=== PATIENT | female | born 1970 | race Caucasian/White ===

== ENCOUNTER 2017-02-16 15:18 | Emergency (ER) | payer MEDICARE, OTHER ==
[2017-02-16] MEDS ORDERED: RX INFO: IV CONTRAST WAS GIVEN 1 EACH MISC MISCELLANE PRN (16:08)
[2017-02-16] MEDS ORDERED: SODIUM CHLORIDE 0.9% 1,000 ML IV ONE (16:09)
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
[2017-02-16 17:05] LABS: Basophils # (A) 0.1 k/uL (0-0.2); Basophils % (A) 1 %; CH 28.4; CHCM 33.4; Eosinophils # (A) 0.2 k/uL (0-0.7); Eosinophils % (A) 2 %; HCT 44.7 % (34.0-46.0); HDW 2.47; HGB 14.9 gm/dL (11.4-16.0); Luc % (Auto) 2; Lymphocytes # (A) 2.4 k/uL (1.0-4.8); Lymphocytes % (A) 21 %; MCH 28.4 pg (25.0-35.0); MCHC 33.4 g/dL (31.0-37.0); MCV 85.2 fL (80.0-100.0); Mean Platelet Volume 7.2; Monocytes # (A) 0.5 k/uL (0-1.0); Monocytes % (A) 5 %; Neutrophils # (A) 8.2 k/uL (1.3-7.7); Neutrophils % (A) 71 %; RBC 5.24 m/uL (3.80-5.40); RDW 14.1 % (11.5-15.5); WBC 11.6 k/uL (3.8-10.6); WBC (Perox) 11.39
[2017-02-16 17:06] LABS: Appearance,Urine Cloudy (Clear); Bacteria,Urine Rare /hpf; Bilirubin,Urine Negative (Negative); Glucose,Urine (UA) Negative (Negative); Ketones,Urine Negative (Negative); Leukocyte Esterase,Urine Large (Negative); Nitrite,Urine Negative (Negative); Particle Count 9694; Protein,Urine Negative (Negative); RBC,Urine 11 /hpf (0-5); Squamous Epithelial Cell,Urine 18 /hpf (0-4); UA Billing (MACRO vs. MICRO) MICRO; Urobilinogen,Urine <2.0 mg/dL (<2.0); WBC,Urine 33 /hpf (0-5)
[2017-02-16 17:16] LABS: ALT 33 U/L (9-52); AST 17 U/L (14-36); Alkaline Phosphatase 56 U/L (38-126); Anion Gap 11 mmol/L; Blood Urea Nitrogen 14 mg/dL (7-17); Calcium 9.6 mg/dL (8.4-10.2); Carbon Dioxide 25 mmol/L (22-30); Chloride 103 mmol/L (98-107); Glucose 96 mg/dL (74-99); Non-African American GFR(MDRD) >60 (>60 ml/min/1.73 sqM); Potassium 4.5 mmol/L (3.5-5.1); Sodium 139 mmol/L (137-145); Total Bilirubin 0.3 mg/dL (0.2-1.3); Total Protein 6.7 g/dL (6.3-8.2)
--- NOTE | 2017-02-16 17:49 | US ---
EXAMINATION TYPE: US venous doppler duplex LE BI DATE OF EXAM: 02/16/2017 5:28 PM COMPARISON: US CLINICAL HISTORY: Pain. Right leg pain x 2 weeks, history previous DVT SIDE PERFORMED: Bilateral TECHNIQUE: The lower extremity deep venous system is examined utilizing real time linear array sonog chase with graded compression, doppler sonography and color-flow sonography. VESSELS IMAGED: External Iliac Vein (EIV) Common Femoral Vein Deep Femoral Vein Greater Saphenous Vein * Femoral Vein Popliteal Vein Small Saphenous Vein * Proximal Calf Veins (* superficial vessels) Right Leg: Appears negative for DVT Left Leg: Appears negative for DVT IMPRESSION: Normal exam. No evidence of deep venous thrombosis in both legs.
[2017-02-16] MEDS ORDERED: MORPHINE SULFATE 4 MG/ML SYRINGE IVP STA (18:08)
--- NOTE | 2017-02-16 18:36 | CT ---
EXAMINATION TYPE: CT angio chest DATE OF EXAM: 02/16/2017 6:26 PM COMPARISON: 05/15/2012 HISTORY: Leg swelling and pain with shortness of breath CT DLP: 561.2 mGycm Automated exposure control for dose reduction was used. CONTRAST: CTA scan of the thorax is performed with IV Contrast, patient injected with 100 mL of Omnipaque 350, pulmonary embolism protocol. There are 3-D post processed images.. FINDINGS: There are minimal reticular nodular densities at the lung bases. There is no sign of a pulmonary mass . Thoracic aorta shows no sign of dissection. Ascending aorta measures 3.6 cm. There is no evidence o f aneurysm. I see no filling defects in the pulmonary arteries. There is no pericardial effusion. The re is no pleural effusion. There are bilateral bronchial lymph nodes that measure up to 1.5 cm. The b gian thorax is intact. IMPRESSION: NO EVIDENCE OF PULMONARY EMBOLISM. MINIMAL BILATERAL BRONCHIAL ADENOPATHY WITHOUT CHANGE COMPARED TO OLD EXAM. MILD RETICULAR NODULAR DENSITY AT THE LUNG BASES CONSISTENT WITH PULMONARY FIBROSIS.
[2017-02-16 19:33] VITALS: BP 140/83; PULSE 76; RESP 18; TEMP 98.5
== END 2017-02-16 19:31 | disposition home or self-care (01) ==
LOC: EC 15:18
DX: N39.0 Urinary tract infection, site not specified (principal); M79.89 Other specified soft tissue disorders; F32.9 Major depressive disorder, single episode, unspecified; E78.5 Hyperlipidemia, unspecified; M19.90 Unspecified osteoarthritis, unspecified site; F17.200 Nicotine dependence, unspecified, uncomplicated; Z79.891 Long term (current) use of opiate analgesic; Z86.718 Personal history of other venous thrombosis and embolism; Z88.1 Allergy status to other antibiotic agents; Z88.8 Allergy status to other drugs, medicaments and biological substances; Z79.1 Long term (current) use of non-steroidal anti-inflammatories (NSAID); Z79.82 Long term (current) use of aspirin; Z79.899 Other long term (current) drug therapy
CPT/HCPCS: 99284; 96365; 96375; 96361 ×2; 36415; 93005; 83880; 80053; 84484; 85025; 81001; 81025; 87086; 93970; 71275; J2270; Q9967; J0696

== ENCOUNTER → 2017-04-03 | Outpatient (CLI) | payer MEDICARE, OTHER ==
--- NOTE | 2017-04-03 11:04 | MM ---
Reason for exam: clinical finding. Indicated problem(s): lump or thickening in the left breast. Physical Findings: Nurse did not find any significant physical abnormalities on exam. MG 3D Diag Mammo W/Cad FERNANDO Bilateral CC and MLO view(s) were taken. XCCL view(s) were taken of the left breast. The breast tissue is heterogeneously dense. This may lower the sensitivity of mammography. Finding: There is a 5 mm circumscribed round mass in the lower quadrant, anterior, subareolar position of the left breast. These results were verbally communicated with the patient and result sheet given to the patient on 04/03/17. ASSESSMENT: Incomplete: need additional imaging evaluation, BI-RAD 0 RECOMMENDATION: Ultrasound of the left breast.
--- NOTE | 2017-04-03 11:05 | USB ---
Reason for exam: additional evaluation requested from abnormal screening. US Breast Limited LT Left breast ultrasound demonstrates a 0.7 x 0.4 x 0.4cm round, mixed lesion at 7 o'clock. These results were verbally communicated with the patient and result sheet given to the patient on 04/03/17. ASSESSMENT: Probably benign, BI-RAD 3 RECOMMENDATION: Follow-up diagnostic mammogram and ultrasound of the left breast in 6 months.
== END | disposition home or self-care (01) ==
LOC: RADMAMWWP 09:06
PROVIDERS: ATTEND Family Medicine
DX: R92.8 Other abnormal and inconclusive findings on diagnostic imaging of breast (principal); N63 Unspecified lump in breast
CPT/HCPCS: 76642; G0204; G0279

== ENCOUNTER → 2017-05-16 | Outpatient (CLI) | payer MEDICARE, OTHER ==
--- NOTE | 2017-05-16 09:17 | MR ---
EXAMINATION TYPE: MR brain wo/w con DATE OF EXAM: 05/16/2017 COMPARISON: 05/13/2016 HISTORY: 47-year-old female follow-up MS TECHNIQUE: Multiplanar, multisequence images of the brain and brainstem is performed without and with utilizing 10 mL intravenous Gadavist gadolinium contrast. Demyelinating disease protocol with additional Sagit robert Flair sequence performed. FINDINGS: T2 Lesions Present : Yes Approximate Number of Lesions: 15-20 in each cerebral hemisphere. Locations Identified : Subcortical, deep white matter, periventricular including the appearance of Da wson's fingers. No infratentorial or brainstem lesions are seen Size of Reference Lesion(s): 1. Largest Garcia's finger measures 8 mm right frontal periventricular region, axial image 20 and 21 . This is unchanged. 2. A couple new 3 and 4 mm foci in the left frontal white matter, axial image 18. Enhancing Lesion(s) Present: No T1 Hypointense Lesion(s) Present: Yes Change from Prior: A couple lesions in the left frontal white matter are new. Diffusion weighted images demonstrate no evidence of a recent infarct or other diffusion abnormality. There is no worrisome extra-axial fluid collection. The ventricular system and cisternal spaces ar e normal in size and appearance. The brain volume is age appropriate. Midline structures demonstrate normal morphology. The craniocervical junction appears within normal limits. Post contrast images demonstrate no abnormal enhancement. The dural venous sinuses appear pa tent. Mild mucosal thickening within the ethmoid air cells. Globes appear intact. IMPRESSION: 1. A couple 3 and 4 mm bright white matter foci in the left frontal lobe are new. 2. Otherwise, overall stable features of MS with moderate scattered disease burden. No enhancing plaq ues.
== END | disposition home or self-care (01) ==
LOC: RADMRIMAIN 07:07
PROVIDERS: ATTEND Psychiatry & Neurology Pain Medicine
DX: G35 Multiple sclerosis (principal); R90.82 White matter disease, unspecified
CPT/HCPCS: 70553; A9581

== ENCOUNTER 2017-05-21 15:16 | Inpatient (IN) | payer MEDICARE, OTHER ==
[2017-05-21] MEDS ORDERED: IPRATROPIUM-ALBUTEROL 3 ML NEB INHALATION STA ×2 (16:31→18:29)
[2017-05-21] MEDS ORDERED: methylPREDNISolone SOD SUCCI 125 MG/2 ML VIAL IV STA (16:32)
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
[2017-05-21] MEDS ORDERED: diphenhydrAMINE 50 MG/ML 1 ML VIAL IVP STA (16:55)
[2017-05-21] MEDS ORDERED: FAMOTIDINE 20 MG/2 ML VIAL IV STA (16:55)
[2017-05-21 17:30] LABS: Prothrombin Time 9.9 sec (9.0-12.0)
[2017-05-21 17:35] LABS: ALT 32 U/L (9-52); AST 15 U/L (14-36); Alkaline Phosphatase 68 U/L (38-126); Anion Gap 10 mmol/L; Blood Urea Nitrogen 11 mg/dL (7-17); Calcium 8.7 mg/dL (8.4-10.2); Carbon Dioxide 24 mmol/L (22-30); Chloride 104 mmol/L (98-107); Glucose 88 mg/dL (74-99); Magnesium 1.8 mg/dL (1.6-2.3); Non-African American GFR(MDRD) >60 (>60 ml/min/1.73 sqM); Potassium 3.8 mmol/L (3.5-5.1); Sodium 138 mmol/L (137-145); Total Bilirubin 0.2 mg/dL (0.2-1.3); Total Protein 6.6 g/dL (6.3-8.2)
[2017-05-21 17:37] LABS: Creatine Kinase 33 U/L (30-135)
[2017-05-21 17:45] LABS: Basophils # (A) 0.1 k/uL (0-0.2); Basophils % (A) 1 %; CH 28.6; CHCM 32.5; Eosinophils # (A) 0.1 k/uL (0-0.7); Eosinophils % (A) 1 %; HCT 45.5 % (34.0-46.0); HGB 15.5 gm/dL (11.4-16.0); Luc # (Auto) 0.11; Luc % (Auto) 1; Lymphocytes # (A) 1.1 k/uL (1.0-4.8); Lymphocytes % (A) 13 %; MCH 29.9 pg (25.0-35.0); MCV 88.2 fL (80.0-100.0); Monocytes # (A) 0.4 k/uL (0-1.0); Monocytes % (A) 5 %; Neutrophils # (A) 6.7 k/uL (1.3-7.7); Neutrophils % (A) 79 %; RBC 5.16 m/uL (3.80-5.40); RDW 13.7 % (11.5-15.5); WBC 8.5 k/uL (3.8-10.6); WBC (Perox) 8.55
[2017-05-21 17:50] LABS: Creatine Kinase MB <0.2 ng/mL (0.0-2.4); Troponin I <0.012 ng/mL (0.000-0.034)
--- NOTE | 2017-05-21 18:23 | XR ---
EXAMINATION TYPE: XR chest 2V DATE OF EXAM: 05/21/2017 COMPARISON: 08/13/2016 HISTORY: Chest pain TECHNIQUE: Frontal and lateral views of the chest are obtained. FINDINGS: Heart and mediastinum are normal. Lungs are clear of consolidation. Costophrenic angles ar e clear. There are small calcified granulomata in the lower lobes. Bony thorax is intact. IMPRESSION: Old granulomatous disease. No active cardiopulmonary disease. No change.
[2017-05-21] MEDS ORDERED: oxyCODONE-APAP 10-325MG 1 EACH TAB PO STA (18:40)
[2017-05-21] MEDS: IPRATROPIUM-ALBUTEROL 3 ML NEB INHALATION SCH (19:15)
[2017-05-21] MEDS ORDERED: NON-FORMULARY DRUG (Dimethyl Fumarate [Tecfidera] 240 MG) PO SCH (21:00)
[2017-05-21] MEDS: LORazepam 1 MG TAB PO SCH (21:38)
[2017-05-21] MEDS: DULoxetine HCL 60 MG CAPSULE.DR PO SCH (21:43)
[2017-05-21] MEDS: MORPHINE SULFATE ER 30 MG TABLET PO PRN (21:43)
[2017-05-21] MEDS: GABAPENTIN 400 MG CAP PO SCH (21:45)
[2017-05-21] MEDS: tiZANidine 4 MG TAB PO PRN (21:53)
[2017-05-21] MEDS: MECLIZINE 12.5 MG TAB PO PRN (21:53)
[2017-05-21] MEDS ORDERED: ONDANSETRON 4 MG/2 ML VIAL IVP PRN (22:35)
[2017-05-21] MEDS ORDERED: SUMAtriptan SUCCINATE 25 MG TAB PO PRN (22:37)
[2017-05-21] MEDS ORDERED: IBUPROFEN 800 MG TAB PO PRN (22:40)
[2017-05-21] MEDS ORDERED: NICOTINE 21MG/24HR PATCH TRANSDERM SCH (22:45)
[2017-05-21] MEDS ORDERED: MELOXICAM 7.5 MG TAB PO SCH (22:45)
[2017-05-21] MEDS ORDERED: ONDANSETRON 4 MG TAB PO PRN (22:46)
[2017-05-21] MEDS: IPRATROPIUM-ALBUTEROL 3 ML NEB INHALATION PRN (23:20)
[2017-05-21] MEDS: SUMAtriptan SUCCINATE 50 MG TAB PO PRN (23:42)
[2017-05-21] MEDS: diphenhydrAMINE 50 MG/ML 1 ML VIAL IVP PRN (23:49)
[2017-05-21] MEDS: methylPREDNISolone SOD SUCCI 125 MG/2 ML VIAL IV SCH (23:56)
[2017-05-22] MEDS: diphenhydrAMINE 50 MG/ML 1 ML VIAL IVP PRN (05:51)
[2017-05-22] MEDS: methylPREDNISolone SOD SUCCI 125 MG/2 ML VIAL IV SCH ×2 (05:55→11:55)
[2017-05-22] MEDS: LEVOTHYROXINE 50 MCG TAB PO SCH (05:56)
[2017-05-22] MEDS: ASPIRIN 81 MG PO SCH (08:27)
[2017-05-22] MEDS: LORATADINE 10 MG TAB PO SCH (08:28)
[2017-05-22] MEDS: GABAPENTIN 400 MG CAP PO SCH ×3 (08:28→22:09)
[2017-05-22] MEDS: FAMOTIDINE 20 MG TAB PO SCH ×2 (08:28→22:14)
[2017-05-22] MEDS: MONTELUKAST 10 MG TAB PO SCH (08:29)
[2017-05-22] MEDS: LORazepam 1 MG TAB PO SCH ×3 (08:29→22:11)
[2017-05-22] MEDS: MORPHINE SULFATE ER 30 MG TABLET PO PRN (08:34)
[2017-05-22] MEDS: IPRATROPIUM-ALBUTEROL 3 ML NEB INHALATION SCH ×4 (08:53→20:30)
[2017-05-22] MEDS: oxyCODONE-APAP 7.5-325MG 1 EACH TAB PO PRN ×3 (10:11→22:12)
[2017-05-22] MEDS: IPRATROPIUM-ALBUTEROL 3 ML NEB INHALATION PRN (10:49)
[2017-05-22] MEDS: SUMAtriptan SUCCINATE 50 MG TAB PO PRN ×2 (11:59→22:24)
[2017-05-22] MEDS ORDERED: diphenhydrAMINE 50 MG/ML 1 ML VIAL IVP SCH (12:00)
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
[2017-05-22] MEDS ORDERED: methylPREDNISolone SOD SUCCI 125 MG/2 ML VIAL IV SCH ×2 (16:00→20:00)
[2017-05-22] MEDS: AZITHROMYCIN 500 MG TAB PO SCH ×2 (16:05→16:30)
[2017-05-22] MEDS: tiZANidine 4 MG TAB PO PRN ×2 (16:31→23:16)
[2017-05-22 17:17] LABS: Glucose,Whole Blood 239 mg/dL (75-99)
[2017-05-22] MEDS: INSULIN LISPRO (humaLOG) 300 UNIT/3 ML VIAL SQ SCH ×2 (18:33→22:15)
[2017-05-22 20:55] LABS: Hemoglobin A1C 5.7 % (4.2-6.1)
[2017-05-22 21:49] LABS: Glucose,Whole Blood 138 mg/dL (75-99)
[2017-05-22] MEDS: NICOTINE 21MG/24HR PATCH TRANSDERM SCH (21:56)
[2017-05-22] MEDS: diphenhydrAMINE 50 MG/ML 1 ML VIAL IVP SCH (21:57)
[2017-05-22] MEDS: DULoxetine HCL 60 MG CAPSULE.DR PO SCH (22:14)
[2017-05-23] MEDS: LEVOTHYROXINE 50 MCG TAB PO SCH (06:12)
[2017-05-23] MEDS: diphenhydrAMINE 50 MG/ML 1 ML VIAL IVP SCH ×2 (06:12→15:01)
[2017-05-23] MEDS: methylPREDNISolone SOD SUCCI 125 MG/2 ML VIAL IV SCH ×3 (06:13→15:00)
[2017-05-23 07:46] LABS: Glucose,Whole Blood 143 mg/dL (75-99)
[2017-05-23] MEDS: GABAPENTIN 400 MG CAP PO SCH ×3 (07:53→21:08)
[2017-05-23] MEDS: MONTELUKAST 10 MG TAB PO SCH (07:53)
[2017-05-23] MEDS: FAMOTIDINE 20 MG TAB PO SCH ×2 (07:53→20:58)
[2017-05-23] MEDS: LORATADINE 10 MG TAB PO SCH (07:54)
[2017-05-23] MEDS: oxyCODONE-APAP 7.5-325MG 1 EACH TAB PO PRN ×3 (07:54→20:55)
[2017-05-23] MEDS: ASPIRIN 81 MG PO SCH (07:55)
[2017-05-23] MEDS: INSULIN LISPRO (humaLOG) 300 UNIT/3 ML VIAL SQ SCH ×4 (07:55→21:13)
[2017-05-23] MEDS: LORazepam 1 MG TAB PO SCH ×3 (07:55→21:08)
[2017-05-23] MEDS: tiZANidine 4 MG TAB PO PRN ×2 (08:06→21:13)
[2017-05-23] MEDS: IPRATROPIUM-ALBUTEROL 3 ML NEB INHALATION SCH ×4 (08:19→20:08)
[2017-05-23 12:13] LABS: Glucose,Whole Blood 146 mg/dL (75-99)
--- NOTE | 2017-05-23 13:22 | P.PN ---
Subjective Patient is admitted for shortness of breath secondary to COPD exacerbation minimal improvement competitors today. Patient continues to have some shortness of breath denied any fever, chills, nausea, vomiting, focal weakness, cough. Objective - Vital Signs Vital signs: Vital Signs Temp 97.9 F 05/23/17 08:00 Pulse 80 05/23/17 12:00 Resp 20 05/23/17 08:00 BP 140/96 05/23/17 08:00 Pulse Ox 96 05/23/17 08:00 Intake & Output 05/22/17 05/23/17 05/23/17 18:59 06:59 18:59 Intake Total 800 Balance 800 Intake: Oral 800 Other: Voiding Method Toilet # Voids 1 - Exam GENERAL: The patient is alert and oriented x3, is in significant acute respiratory distress. Well developed, well nourished. HEENT: Pupils are round and equally reacting to light. EOMI. No scleral icterus. No conjunctival pallor. Normocephalic, atraumatic. No pharyngeal erythema. No thyromegaly. CARDIOVASCULAR: S1 and S2 present. No murmurs, rubs, or gallops. PULMONARY: Significant expiratory wheezing,, there is minimal improvement in her wheezing ABDOMEN: Soft, nontender, nondistended, normoactive bowel sounds. No palpable organomegaly. MUSCULOSKELETAL: No joint swelling or deformity. EXTREMITIES: No cyanosis, clubbing, or pedal edema. NEUROLOGICAL: Gross neurological examination did not reveal any focal deficits. SKIN: No rashes. - Labs CBC & Chem 7: 05/21/17 17:15 05/21/17 17:15 Labs: Abnormal Lab Results - Last 24 Hours (Table) 05/22/17 05/22/17 05/23/17 Range/Units 17:16 21:35 07:40 POC Glucose (mg/dL) 239 H 138 H 143 H (75-99) mg/dL 05/23/17 Range/Units 12:05 POC Glucose (mg/dL) 146 H (75-99) mg/dL Microbiology - Last 24 Hours (Table) 05/21/17 17:15 Blood Culture - Preliminary Blood No Growth after 24 hours Assessment and Plan Plan: Acute hypercapnic respiratory failure: Secondary to COPD exacerbation patient is on inhalational treatments, azithromycin, systemic steroids. Fibromyalgia Multiple sclerosis not in acute exacerbation History of DVT in the past not on any anti-correlation at this time Osteoarthritis Plan is to continue with her home medications along with above-mentioned medications.
--- NOTE | 2017-05-23 14:15 | PN ---
PROGRESS NOTE DATE OF SERVICE: 05/23/2017 She has been hemodynamically stable. She continues to have shortness of breath and is audibly wheezing from across the room. On physical examination, respiratory rate is 18, pulse rate of 88, temperature 97.9, O2 saturation on room air is 96%. HEENT reveals pupils that are equal. Chest reveals expiratory wheeze. Cardiovascular system with an S1, S2. Abdomen is soft. There is no edema. IMPRESSION: 1. Severe asthma with acute exacerbation. 2. Diabetes mellitus. 3. Chronic obstructive pulmonary disease. 4. Fibromyalgia. 5. Multiple sclerosis. Continue high-dose steroids, bronchodilators, aerosolized steroids, increase her activity level. Depending on how she does, we shall make further changes to his care. She was counseled regarding her condition and this report. MMMADELEINEL / YORDANN: [id number] /
[2017-05-23] MEDS: NICOTINE 21MG/24HR PATCH TRANSDERM SCH (15:24)
[2017-05-23 17:04] LABS: Glucose,Whole Blood 116 mg/dL (75-99)
[2017-05-23] MEDS: DULoxetine HCL 60 MG CAPSULE.DR PO SCH (20:57)
[2017-05-23] MEDS: MECLIZINE 12.5 MG TAB PO PRN (20:58)
[2017-05-23] MEDS: MORPHINE SULFATE ER 30 MG TABLET PO PRN (21:08)
[2017-05-23 21:20] LABS: Glucose,Whole Blood 190 mg/dL (75-99)
[2017-05-23] MEDS: SUMAtriptan SUCCINATE 50 MG TAB PO PRN (22:33)
[2017-05-24] MEDS: diphenhydrAMINE 50 MG/ML 1 ML VIAL IVP SCH ×4 (00:18→23:14)
[2017-05-24] MEDS: methylPREDNISolone SOD SUCCI 125 MG/2 ML VIAL IV SCH ×4 (00:18→23:13)
[2017-05-24] MEDS: IPRATROPIUM-ALBUTEROL 3 ML NEB INHALATION PRN ×2 (04:06)
[2017-05-24] MEDS: LEVOTHYROXINE 50 MCG TAB PO SCH (06:23)
[2017-05-24 07:13] LABS: Glucose,Whole Blood 122 mg/dL (75-99)
[2017-05-24] MEDS: INSULIN LISPRO (humaLOG) 300 UNIT/3 ML VIAL SQ SCH ×4 (07:15→21:05)
[2017-05-24] MEDS: IPRATROPIUM-ALBUTEROL 3 ML NEB INHALATION SCH ×4 (08:56→20:55)
[2017-05-24] MEDS: LORATADINE 10 MG TAB PO SCH (09:12)
[2017-05-24] MEDS: MONTELUKAST 10 MG TAB PO SCH (09:12)
[2017-05-24] MEDS: GABAPENTIN 400 MG CAP PO SCH ×3 (09:13→22:01)
[2017-05-24] MEDS: oxyCODONE-APAP 7.5-325MG 1 EACH TAB PO PRN ×3 (09:13→23:14)
[2017-05-24] MEDS: FAMOTIDINE 20 MG TAB PO SCH ×2 (09:13→21:05)
[2017-05-24] MEDS: MORPHINE SULFATE ER 30 MG TABLET PO PRN ×2 (09:14→21:13)
[2017-05-24] MEDS: LORazepam 1 MG TAB PO SCH ×3 (09:14→21:05)
[2017-05-24] MEDS: ASPIRIN 81 MG PO SCH (10:26)
[2017-05-24] MEDS: tiZANidine 4 MG TAB PO PRN ×3 (10:26→21:13)
--- NOTE | 2017-05-24 11:28 | PN ---
PROGRESS NOTE The patient was seen again on 05/24/2007. She has been hemodynamically stable. She continues to have shortness of breath. PHYSICAL EXAMINATION: VITALS: Stable. She is afebrile. Her chest reveals expiratory wheeze. Cardiovascular system reveals an S1, S2. ABDOMEN: Soft. There is trace pedal edema. IMPRESSION: 1. Severe asthma with acute exacerbation. 2. Chronic pain and fibromyalgia. 3. Obesity. 4. Diabetes mellitus which is partly uncontrolled due to her need for steroids. At this point in time, continue insulin, bronchodilators, aerosolized steroids, keep her Solu-Medrol dose at the same level. If she continues to improve, would be able to start to decrease her steroids tomorrow, increase her activity level. Her prognosis is guarded. MMODL / IJN: [id number] /
[2017-05-24] MEDS: AZITHROMYCIN 500 MG TAB PO SCH (12:18)
[2017-05-24 12:31] LABS: Glucose,Whole Blood 156 mg/dL (75-99)
[2017-05-24] MEDS: NICOTINE 21MG/24HR PATCH TRANSDERM SCH (13:49)
--- NOTE | 2017-05-24 16:30 | P.PN ---
Subjective Patient is admitted for shortness of breath secondary to COPD exacerbation minimal improvement competitors today. 05/24/2017 Patient doesn't have any significant improvements still has quite a bit of expiratory wheezing bilaterally patient remains in the same dose of systemic steroids Patient continues to have some shortness of breath denied any fever, chills, nausea, vomiting, focal weakness, cough. Objective - Vital Signs Vital signs: Vital Signs Temp 98.5 F 05/24/17 12:41 Pulse 80 05/24/17 12:41 Resp 12 05/24/17 12:41 BP 111/73 05/24/17 08:19 Pulse Ox 93 L 05/24/17 12:41 - Exam GENERAL: The patient is alert and oriented x3, is in significant acute respiratory distress. Well developed, well nourished. HEENT: Pupils are round and equally reacting to light. EOMI. No scleral icterus. No conjunctival pallor. Normocephalic, atraumatic. No pharyngeal erythema. No thyromegaly. CARDIOVASCULAR: S1 and S2 present. No murmurs, rubs, or gallops. PULMONARY: Significant expiratory wheezing,, there is no significant improvement competitors today no crackles were appreciated. ABDOMEN: Soft, nontender, nondistended, normoactive bowel sounds. No palpable organomegaly. MUSCULOSKELETAL: No joint swelling or deformity. EXTREMITIES: No cyanosis, clubbing, or pedal edema. NEUROLOGICAL: Gross neurological examination did not reveal any focal deficits. SKIN: No rashes. - Labs CBC & Chem 7: 05/21/17 17:15 05/21/17 17:15 Labs: Abnormal Lab Results - Last 24 Hours (Table) 05/23/17 05/23/17 05/24/17 Range/Units 17:00 21:07 07:10 POC Glucose (mg/dL) 116 H 190 H 122 H (75-99) mg/dL 05/24/17 Range/Units 12:25 POC Glucose (mg/dL) 156 H (75-99) mg/dL Microbiology - Last 24 Hours (Table) 05/21/17 17:15 Blood Culture - Preliminary Blood No Growth after 48 hours Assessment and Plan Plan: Acute hypercapnic respiratory failure: Secondary to COPD exacerbation patient is on inhalational treatments, azithromycin, systemic steroids. Fibromyalgia Multiple sclerosis not in acute exacerbation History of DVT in the past not on any anti-correlation at this time Osteoarthritis Plan is to continue with her home medications along with above-mentioned medications.
[2017-05-24 17:08] LABS: Glucose,Whole Blood 122 mg/dL (75-99)
[2017-05-24] MEDS: SUMAtriptan SUCCINATE 50 MG TAB PO PRN (17:49)
[2017-05-24 20:53] LABS: Glucose,Whole Blood 170 mg/dL (75-99)
[2017-05-24] MEDS: DULoxetine HCL 60 MG CAPSULE.DR PO SCH (21:05)
[2017-05-25] MEDS: IPRATROPIUM-ALBUTEROL 3 ML NEB INHALATION PRN ×2 (01:01→04:58)
[2017-05-25] MEDS: LEVOTHYROXINE 50 MCG TAB PO SCH (06:45)
[2017-05-25 07:42] LABS: Glucose,Whole Blood 124 mg/dL (75-99)
[2017-05-25] MEDS: INSULIN LISPRO (humaLOG) 300 UNIT/3 ML VIAL SQ SCH ×4 (08:26→21:21)
[2017-05-25] MEDS: MONTELUKAST 10 MG TAB PO SCH (08:27)
[2017-05-25] MEDS: GABAPENTIN 400 MG CAP PO SCH ×3 (08:28→21:48)
[2017-05-25] MEDS: FAMOTIDINE 20 MG TAB PO SCH ×2 (08:28→21:14)
[2017-05-25] MEDS: LORATADINE 10 MG TAB PO SCH (08:30)
[2017-05-25] MEDS: IPRATROPIUM-ALBUTEROL 3 ML NEB INHALATION SCH ×4 (08:36→19:08)
[2017-05-25] MEDS: diphenhydrAMINE 50 MG/ML 1 ML VIAL IVP SCH ×2 (08:38→16:00)
[2017-05-25] MEDS: oxyCODONE-APAP 7.5-325MG 1 EACH TAB PO PRN ×3 (08:45→21:15)
[2017-05-25] MEDS: MORPHINE SULFATE ER 30 MG TABLET PO PRN ×2 (08:46→21:48)
[2017-05-25] MEDS: LORazepam 1 MG TAB PO SCH ×3 (08:46→21:14)
[2017-05-25] MEDS: tiZANidine 4 MG TAB PO PRN ×3 (09:02→21:48)
[2017-05-25] MEDS: NICOTINE 21MG/24HR PATCH TRANSDERM SCH (10:00)
[2017-05-25 12:14] LABS: Glucose,Whole Blood 127 mg/dL (75-99)
[2017-05-25] MEDS: methylPREDNISolone SOD SUCCI 125 MG/2 ML VIAL IV SCH (12:38)
[2017-05-25] MEDS: ASPIRIN 81 MG PO SCH (12:38)
--- NOTE | 2017-05-25 14:11 | PN ---
PROGRESS NOTE DATE OF SERVICE: May 25, 2017 INTERVAL HISTORY: She has been hemodynamically stable. She is less short of breath. PHYSICAL EXAMINATION: On physical examination, vitals are stable. Afebrile his chest reveals wheeze only on forced expiration. Cardiovascular system revealed an S1, S2. Abdomen is soft. There is trace pedal edema. LABS: Reviewed. MEDICATIONS: Medications were reviewed. IMPRESSION: 1. Severe asthma with acute exacerbation. 2. Multiple sclerosis. 3. Polymyalgia. At this point in time, would switch her to oral steroids. Increase activity level. I agree with possible discharge planning for tomorrow if she is otherwise stable. Depending on how she does. We should make further changes to her care. MMODL / IJN: [id number] /
[2017-05-25] MEDS: SUMAtriptan SUCCINATE 50 MG TAB PO PRN (14:49)
--- NOTE | 2017-05-25 15:22 | P.PN ---
Subjective Patient is admitted for shortness of breath secondary to COPD exacerbation minimal improvement competitors today. 05/24/2017 Patient doesn't have any significant improvements still has quite a bit of expiratory wheezing bilaterally patient remains in the same dose of systemic steroids Abdomen 2016 Patient has significant improvement compared to yesterday patient is not in respiratory distress at rest without oxygen although with minimal exertion she gets winded. Patient wheezing did improve significantly Patient continues to have some shortness of breath denied any fever, chills, nausea, vomiting, focal weakness, cough. Objective - Vital Signs Vital signs: Vital Signs Temp 98.7 F 05/25/17 11:40 Pulse 80 05/25/17 12:27 Resp 20 05/25/17 11:40 BP 121/70 05/25/17 11:40 Pulse Ox 95 05/25/17 11:40 Intake & Output 05/24/17 05/25/17 05/25/17 18:59 06:59 18:59 Other: # Voids 1 - Exam GENERAL: The patient is alert and oriented x3, is in significant acute respiratory distress. Well developed, well nourished. HEENT: Pupils are round and equally reacting to light. EOMI. No scleral icterus. No conjunctival pallor. Normocephalic, atraumatic. No pharyngeal erythema. No thyromegaly. CARDIOVASCULAR: S1 and S2 present. No murmurs, rubs, or gallops. PULMONARY: expiratory wheezing improved,, there is no significant improvement competitors today no crackles were appreciated. ABDOMEN: Soft, nontender, nondistended, normoactive bowel sounds. No palpable organomegaly. MUSCULOSKELETAL: No joint swelling or deformity. EXTREMITIES: No cyanosis, clubbing, or pedal edema. NEUROLOGICAL: Gross neurological examination did not reveal any focal deficits. SKIN: No rashes. - Labs CBC & Chem 7: 05/21/17 17:15 05/21/17 17:15 Labs: Abnormal Lab Results - Last 24 Hours (Table) 05/24/17 05/24/17 05/25/17 Range/Units 16:52 20:44 07:40 POC Glucose (mg/dL) 122 H 170 H 124 H (75-99) mg/dL 05/25/17 Range/Units 12:11 POC Glucose (mg/dL) 127 H (75-99) mg/dL Microbiology - Last 24 Hours (Table) 05/21/17 17:15 Blood Culture - Preliminary Blood No Growth after 72 hours Assessment and Plan Plan: Acute hypercapnic respiratory failure: Secondary to COPD exacerbation patient is on inhalational treatments, azithromycin, systemic steroids. Steroids were switched to oral possibility of discharge tomorrow if she can you to improve significant improvement compared to yesterday Fibromyalgia Multiple sclerosis not in acute exacerbation History of DVT in the past not on any anti-correlation at this time Osteoarthritis Plan is to continue with her home medications along with above-mentioned medications.
[2017-05-25] MEDS: AZITHROMYCIN 500 MG TAB PO SCH (16:00)
[2017-05-25] MEDS: predniSONE 20 MG TAB PO SCH (16:00)
[2017-05-25 16:57] LABS: Glucose,Whole Blood 121 mg/dL (75-99)
[2017-05-25 20:44] LABS: Glucose,Whole Blood 207 mg/dL (75-99)
[2017-05-25] MEDS: DULoxetine HCL 60 MG CAPSULE.DR PO SCH (21:14)
[2017-05-26] MEDS: diphenhydrAMINE 50 MG/ML 1 ML VIAL IVP SCH ×3 (00:20→15:34)
[2017-05-26] MEDS: LEVOTHYROXINE 50 MCG TAB PO SCH (06:20)
[2017-05-26 07:51] LABS: Glucose,Whole Blood 89 mg/dL (75-99)
[2017-05-26] MEDS: INSULIN LISPRO (humaLOG) 300 UNIT/3 ML VIAL SQ SCH ×3 (08:33→19:30)
[2017-05-26 08:49] VITALS: BP 151/89; RESP 20; TEMP 98.7
[2017-05-26] MEDS: ASPIRIN 81 MG PO SCH (09:13)
[2017-05-26] MEDS: NICOTINE 21MG/24HR PATCH TRANSDERM SCH (09:14)
[2017-05-26] MEDS: GABAPENTIN 400 MG CAP PO SCH ×2 (09:14→15:52)
[2017-05-26] MEDS: MONTELUKAST 10 MG TAB PO SCH (09:14)
[2017-05-26] MEDS: FAMOTIDINE 20 MG TAB PO SCH (09:14)
[2017-05-26] MEDS: LORazepam 1 MG TAB PO SCH ×2 (09:14→15:52)
[2017-05-26] MEDS: LORATADINE 10 MG TAB PO SCH (09:14)
[2017-05-26] MEDS: MORPHINE SULFATE ER 30 MG TABLET PO PRN (09:15)
[2017-05-26] MEDS: predniSONE 20 MG TAB PO SCH (09:15)
[2017-05-26] MEDS: oxyCODONE-APAP 7.5-325MG 1 EACH TAB PO PRN ×2 (09:31→15:44)
[2017-05-26] MEDS: IPRATROPIUM-ALBUTEROL 3 ML NEB INHALATION SCH ×3 (09:32→16:51)
[2017-05-26] MEDS: tiZANidine 4 MG TAB PO PRN (09:43)
[2017-05-26 09:44] VITALS: PULSE 85
[2017-05-26] MEDS: AZITHROMYCIN 500 MG TAB PO SCH (12:38)
[2017-05-26 12:43] LABS: Glucose,Whole Blood 157 mg/dL (75-99)
[2017-05-26] MEDS: SUMAtriptan SUCCINATE 50 MG TAB PO PRN (15:04)
--- NOTE | 2017-05-26 15:06 | PN ---
PROGRESS NOTE DATE OF SERVICE: 05/26/17 INTERVAL HISTORY: She was seen again on May 26, 2017. She has been hemodynamically stable. She is less short of breath. She has wheeze on forced expiration. PHYSICAL EXAMINATION: On physical examination respiratory rate is 20, pulse rate 108, temperature 98.7, blood pressure 151/89, O2 saturation on room is 95%. HEENT is unremarkable. Chest with wheeze only on forced expiration. Cardiovascular system is S1, S2. Abdomen is soft. There is no edema. IMPRESSION: At this time is: 1. Asthma with acute exacerbation. 2. Fibromyalgia. 3. Chronic back pain. Agree with possible discharge planning on a tapering dose of steroids. Scripts were written. We would be happy to see her within the week if she is discharged today. Depending on how she does, we shall make further changes to her care. RYDER / CHRIS: [id number] /
--- NOTE | 2017-05-26 15:42 | P.DS ---
Providers Date of admission: 05/24/17 12:06 Attending physician: Guerrero Dutta Consults: 05/21/17 18:38 Consult Physician Stat Consulting Provider: Isaiah Moreno Consult Reason/Comments: COPD Do you want consulting provider notified?: Yes Primary care physician: Sunshine Berry [facility] Course: Patient is admitted for shortness of breath secondary to COPD exacerbation minimal improvement competitors today. 05/24/2017 Patient doesn't have any significant improvements still has quite a bit of expiratory wheezing bilaterally patient remains in the same dose of systemic steroids 05/26/2017 Patient has significant improvement competitors admission but still does have expiratory wheezing but patient feels comfortable going home and pulmonary clear her to be discharged patient will be discharged with pain dose of steroids prescription of which was provided by pulmonology patient is already taking Ultralente home azithromycin prescription will be provided and patient will be discharged. GENERAL: The patient is alert and oriented x3, is in significant acute respiratory distress. Well developed, well nourished. HEENT: Pupils are round and equally reacting to light. EOMI. No scleral icterus. No conjunctival pallor. Normocephalic, atraumatic. No pharyngeal erythema. No thyromegaly. CARDIOVASCULAR: S1 and S2 present. No murmurs, rubs, or gallops. PULMONARY: expiratory wheezing improved,, there is no significant improvement competitors today no crackles were appreciated. ABDOMEN: Soft, nontender, nondistended, normoactive bowel sounds. No palpable organomegaly. MUSCULOSKELETAL: No joint swelling or deformity. EXTREMITIES: No cyanosis, clubbing, or pedal edema. NEUROLOGICAL: Gross neurological examination did not reveal any focal deficits. SKIN: No rashes. Acute hypercapnic respiratory failure: Secondary to COPD exacerbation patient is on inhalational treatments, azithromycin, systemic steroids. Fibromyalgia Multiple sclerosis not in acute exacerbation History of DVT in the past not on any anti-correlation at this time Osteoarthritis Patient Condition at Discharge: Fair Plan - Discharge Summary New Discharge Prescriptions: New Azithromycin [Zithromax Tri-Mehran] 500 mg PO DAILY #3 tab Tiotropium [place] [Spiriva] 1 cap INHALATION DAILY #1 device No Action DULoxetine HCL [Cymbalta] 60 mg PO HS Multivitamins, Thera [Multivitamin (formulary)] 1 tab PO DAILY EPINEPHrine (Auto Inject) [Epipen] 0.3 mg IM ONCE PRN PRN Reason: Anaphylaxis Morphine Sulfate [Morphine Sulfate ER] 30 mg PO BID PRN PRN Reason: Pain Rizatriptan Odt [Maxalt [employer]] 10 mg PO Q2H PRN MDD 30MG PRN Reason: Migraine Headache Ergocalciferol [Vitamin D2 (DRISDOL)] 50,000 unit PO SA Dimethyl Fumarate [Tecfidera] 240 mg PO BID Loratadine [Claritin] 10 mg PO DAILY Aspirin EC [Ecotrin Low Dose] 81 mg PO DAILY Gabapentin 800 mg PO TID oxyCODONE-APAP 7.5-325MG [Percocet 7.5-325 mg] 1 tab PO TID PRN PRN Reason: Pain Levothyroxine Sodium [Synthroid] 50 mcg PO DAILY Meloxicam [Mobic] 15 mg PO DAILY Fluticasone Propionate [Flovent Hfa 110mcg] 2 puff INHALATION RT-BID predniSONE See Taper PO DAILY Montelukast [Singulair] 10 mg PO DAILY Meclizine [Antivert] 12.5 mg PO TID PRN PRN Reason: Nausea Omeprazole [PriLOSEC] 20 mg PO AC-BID tiZANidine [Zanaflex] 4 mg PO TID PRN PRN Reason: Pain LORazepam [Ativan] 1 mg PO TID Albuterol Sulfate [Proair Hfa] 2 puff INHALATION RT-TID PRN PRN Reason: Shortness Of Breath carBAMazepine [carBAMazepine ER] 200 mg PO BID Discharge Medication List DULoxetine HCL [Cymbalta] 60 mg PO HS 10/05/15 [History] EPINEPHrine (Auto Inject) [Epipen] 0.3 mg IM ONCE PRN 10/06/15 [History] Morphine Sulfate [Morphine Sulfate ER] 30 mg PO BID PRN 10/06/15 [History] Multivitamins, Thera [Multivitamin (formulary)] 1 tab PO DAILY 10/06/15 [History ] Rizatriptan Odt [Maxalt [employer]] 10 mg PO Q2H PRN MDD 30MG 01/25/16 [History] Dimethyl Fumarate [Tecfidera] 240 mg PO BID 01/26/16 [History] Ergocalciferol [Vitamin D2 (DRISDOL)] 50,000 unit PO SA 01/26/16 [History] Loratadine [Claritin] 10 mg PO DAILY 01/26/16 [History] Aspirin EC [Ecotrin Low Dose] 81 mg PO DAILY 08/13/16 [History] Gabapentin 800 mg PO TID 08/13/16 [History] oxyCODONE-APAP 7.5-325MG [Percocet 7.5-325 mg] 1 tab PO TID PRN 08/13/16 [ History] Levothyroxine Sodium [Synthroid] 50 mcg PO DAILY 02/16/17 [History] Albuterol Sulfate [Proair Hfa] 2 puff INHALATION RT-TID PRN 05/21/17 [History] Fluticasone Propionate [Flovent Hfa 110mcg] 2 puff INHALATION RT-BID 05/21/17 [ History] LORazepam [Ativan] 1 mg PO TID 05/21/17 [History] Meclizine [Antivert] 12.5 mg PO TID PRN 05/21/17 [History] Meloxicam [Mobic] 15 mg PO DAILY 05/21/17 [History] Montelukast [Singulair] 10 mg PO DAILY 05/21/17 [History] Omeprazole [PriLOSEC] 20 mg PO AC-BID 05/21/17 [History] carBAMazepine [carBAMazepine ER] 200 mg PO BID 05/21/17 [History] predniSONE See Taper PO DAILY 05/21/17 [History] tiZANidine [Zanaflex] 4 mg PO TID PRN 05/21/17 [History] Azithromycin [Zithromax Tri-Mehran] 500 mg PO DAILY #3 tab 05/26/17 [Rx] Tiotropium [place] [Spiriva] 1 cap INHALATION DAILY #1 device 05/26/17 [Rx] Follow up Appointment(s)/Referral(s): Jamal Gonsalez MD [Primary Care Provider] - 3 Days Discharge Disposition: HOME SELF-CARE
== END 2017-05-26 16:45 | disposition home or self-care (01) | DRG 190 ==
LOC: EC 15:16 → 6PED 18:50 → OBSVTOIN 05-24 12:06
PROVIDERS: ADMIT Hospitalist; ATTEND Hospitalist
DX: J44.1 Chronic obstructive pulmonary disease with (acute) exacerbation (principal); J96.02 Acute respiratory failure with hypercapnia; E27.40 Unspecified adrenocortical insufficiency; J45.51 Severe persistent asthma with (acute) exacerbation; I50.9 Heart failure, unspecified; J84.10 Pulmonary fibrosis, unspecified; E11.9 Type 2 diabetes mellitus without complications; E66.9 Obesity, unspecified; E78.5 Hyperlipidemia, unspecified; F17.200 Nicotine dependence, unspecified, uncomplicated; G35 Multiple sclerosis; G47.33 Obstructive sleep apnea (adult) (pediatric); G89.29 Other chronic pain; M79.7 Fibromyalgia; F32.9 Major depressive disorder, single episode, unspecified; F41.9 Anxiety disorder, unspecified; G43.909 Migraine, unspecified, not intractable, without status migrainosus; G47.00 Insomnia, unspecified; G47.10 Hypersomnia, unspecified; K44.9 Diaphragmatic hernia without obstruction or gangrene; M47.9 Spondylosis, unspecified; M48.00 Spinal stenosis, site unspecified; R32 Unspecified urinary incontinence; R33.9 Retention of urine, unspecified; M54.9 Dorsalgia, unspecified; M19.90 Unspecified osteoarthritis, unspecified site; H93.19 Tinnitus, unspecified ear; Z79.1 Long term (current) use of non-steroidal anti-inflammatories (NSAID); Z79.899 Other long term (current) drug therapy; Z79.82 Long term (current) use of aspirin; Z88.1 Allergy status to other antibiotic agents; Z88.8 Allergy status to other drugs, medicaments and biological substances; Z82.49 Family history of ischemic heart disease and other diseases of the circulatory system
CPT/HCPCS: 36415; 71020; 80053; 82550; 82553; 83036; 83605; 83735; 83880; 84484; 85025; 85610; 85730; 87040; 93005; 94640; 94760; 96374; 96375; 96376; 99285

== ENCOUNTER 2017-10-15 13:13 | Emergency (ER) | payer MEDICARE, OTHER ==
[2017-10-15 13:52] VITALS: RESP 18; TEMP 99
[2017-10-15] MEDS ORDERED: IPRATROPIUM-ALBUTEROL 3 ML NEB INHALATION STA (15:10)
[2017-10-15] MEDS ORDERED: SODIUM CHLORIDE 0.9% 500 ML IV STA (15:10)
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
[2017-10-15] MEDS ORDERED: oxyCODONE-APAP 10-325MG 1 EACH TAB PO PRN (15:39)
[2017-10-15] MEDS ORDERED: tiZANidine 4 MG TAB PO PRN (15:39)
[2017-10-15 15:41] LABS: Appearance,Urine Clear (Clear); Bilirubin,Urine Negative (Negative); Blood,Urine Negative (Negative); Color,Urine Light Yellow; Glucose,Urine (UA) Negative (Negative); Ketones,Urine Negative (Negative); Leukocyte Esterase,Urine Negative (Negative); Nitrite,Urine Negative (Negative); PH, Urine 6.5 (5.0-8.0); Protein,Urine Negative (Negative); Specific Gravity,Urine 1.005 (1.001-1.035); Urobilinogen,Urine <2.0 mg/dL (<2.0)
[2017-10-15 15:48] LABS: Basophils # (A) 0.1 k/uL (0-0.2); Basophils % (A) 1 %; Eosinophils # (A) 0.1 k/uL (0-0.7); Eosinophils % (A) 0 %; HCT 49.1 % (34.0-46.0); HGB 15.6 gm/dL (11.4-16.0); Lymphocytes # (A) 2.2 k/uL (1.0-4.8); Lymphocytes % (A) 8 %; MCH 28.1 pg (25.0-35.0); MCHC 31.7 g/dL (31.0-37.0); MCV 88.7 fL (80.0-100.0); Mean Platelet Volume 6.4; Monocytes # (A) 0.7 k/uL (0-1.0); Monocytes % (A) 3 %; Neutrophils # (A) 23.7 k/uL (1.3-7.7); Neutrophils % (A) 88 %; Platelet Count 417 k/uL (150-450); RBC 5.53 m/uL (3.80-5.40)
[2017-10-15 15:51] LABS: WBC 26.9 k/uL (3.8-10.6)
[2017-10-15 15:52] LABS: Anion Gap 12 mmol/L; Blood Urea Nitrogen 22 mg/dL (7-17); Calcium 9.3 mg/dL (8.4-10.2); Carbon Dioxide 30 mmol/L (22-30); Chloride 95 mmol/L (98-107); Glucose 137 mg/dL (74-99); Potassium 4.5 mmol/L (3.5-5.1); Sodium 137 mmol/L (137-145)
--- NOTE | 2017-10-15 16:05 | XR ---
EXAMINATION TYPE: XR chest 2V DATE OF EXAM: 10/15/2017 COMPARISON: 05/21/2017 HISTORY: 47-year-old female with cough TECHNIQUE: PA and lateral views FINDINGS: The cardiomediastinal silhouette, aorta, and pulmonary vasculature are within normal limits. Diffuse interstitial prominence in part appears chronic. No hanna consolidation or pleural effusion. IMPRESSION: Correlate for possible bronchitis, chronic asthma, or atypical pneumonias. No focal infiltrate.
[2017-10-15 16:43] VITALS: BP 116/57; PULSE 100
== END 2017-10-15 16:43 | disposition home or self-care (01) ==
LOC: EC 13:13
DX: D72.829 Elevated white blood cell count, unspecified (principal); R05 Cough; R30.0 Dysuria; R09.81 Nasal congestion; J34.89 Other specified disorders of nose and nasal sinuses; J44.9 Chronic obstructive pulmonary disease, unspecified; E78.5 Hyperlipidemia, unspecified; I50.9 Heart failure, unspecified; M79.7 Fibromyalgia; M19.90 Unspecified osteoarthritis, unspecified site; F32.9 Major depressive disorder, single episode, unspecified; F41.9 Anxiety disorder, unspecified; G47.00 Insomnia, unspecified; F17.200 Nicotine dependence, unspecified, uncomplicated; Z79.82 Long term (current) use of aspirin; Z79.1 Long term (current) use of non-steroidal anti-inflammatories (NSAID); Z79.51 Long term (current) use of inhaled steroids; Z79.899 Other long term (current) drug therapy; Z88.1 Allergy status to other antibiotic agents; Z88.8 Allergy status to other drugs, medicaments and biological substances
CPT/HCPCS: 36415; 71046; 80048; 80053; 80074; 81003; 81025; 82306; 82607; 82746; 83036; 83605; 84207; 84425; 84439; 84443; 84481; 84591; 85025; 87040; 87086; 87390; 87502; 94640; 99283

== ENCOUNTER → 2017-10-15 | Outpatient (CLI) | payer MEDICARE, OTHER ==
[2017-10-15 10:33] LABS: ALT 32 U/L (9-52); AST 16 U/L (14-36); Albumin 3.9 g/dL (3.5-5.0); Alkaline Phosphatase 58 U/L (38-126); Anion Gap 10 mmol/L; Blood Urea Nitrogen 23 mg/dL (7-17); Calcium 9.8 mg/dL (8.4-10.2); Carbon Dioxide 33 mmol/L (22-30); Chloride 94 mmol/L (98-107); Glucose 89 mg/dL (74-99); Sodium 137 mmol/L (137-145); Total Bilirubin 0.2 mg/dL (0.2-1.3); Total Protein 6.3 g/dL (6.3-8.2)
[2017-10-15 10:55] LABS: Basophils # (A) 0.1 k/uL (0-0.2); Basophils % (A) 1 %; Eosinophils # (A) 0.2 k/uL (0-0.7); Eosinophils % (A) 1 %; HGB 15.4 gm/dL (11.4-16.0); Lymphocytes # (A) 5.1 k/uL (1.0-4.8); Lymphocytes % (A) 20 %; MCH 28.2 pg (25.0-35.0); MCHC 32.2 g/dL (31.0-37.0); MCV 87.5 fL (80.0-100.0); Mean Platelet Volume 6.7; Monocytes % (A) 4 %; Neutrophils # (A) 19.2 k/uL (1.3-7.7); Neutrophils % (A) 74 %; Platelet Count 428 k/uL (150-450); RBC 5.48 m/uL (3.80-5.40); RDW 12.9 % (11.5-15.5)
[2017-10-15 11:01] LABS: WBC 25.9 k/uL (3.8-10.6)
[2017-10-15 17:03] LABS: Hepatitis A Antibody IgM Non-Reactive (Non-Reactive); Hepatitis B Core IgM Non-Reactive (Non-Reactive)
[2017-10-15 17:33] LABS: Hemoglobin A1C 5.9 % (4.0-6.0)
[2017-10-15 17:54] LABS: HIV AB P24 Non-Reactive (Non-Reactive); HIV P24 AG Non-Reactive (Non-Reactive)
[2017-10-17 03:56] LABS: Vitamin B1 100 ug/L (38-122)
[2017-10-17 08:05] LABS: Vitamin B6 17 ug/L (5-50)
[2017-10-22 09:23] LABS: Nicotinuric Acid None Detected
== END | disposition home or self-care (01) ==
LOC: LABWHC1 09:14
PROVIDERS: ATTEND Psychiatry & Neurology Pain Medicine
DX: G35 Multiple sclerosis (principal); Z79.899 Other long term (current) drug therapy
CPT/HCPCS: 36415; 80053; 80074; 82306; 82607; 82746; 83036; 84207; 84425; 84439; 84443; 84481; 84591; 85025; 87390

== ENCOUNTER → 2017-11-22 | Outpatient (CLI) | payer MEDICARE, OTHER ==
[2017-11-22 11:20] LABS: T4, Free (Free Thyroxine) 0.78 ng/dL (0.78-2.19)
== END | disposition home or self-care (01) ==
LOC: LABWHC1 10:12
PROVIDERS: ATTEND Internal Medicine Endocrinology, Diabetes & Metabolism
DX: D35.2 Benign neoplasm of pituitary gland (principal); E03.8 Other specified hypothyroidism
CPT/HCPCS: 36415; 82533; 84146; 84439; 84443

== ENCOUNTER → 2017-12-25 | Outpatient (CLI) | payer MEDICARE, OTHER ==
[2017-12-25 11:28] LABS: T4, Free (Free Thyroxine) 1.2 ng/dL (0.78-2.19)
[2017-12-25 20:42] LABS: ACTH <5.00 pg/mL (0.00-45.99)
== END | disposition home or self-care (01) ==
LOC: LABWHC1 10:19
PROVIDERS: ATTEND Internal Medicine Endocrinology, Diabetes & Metabolism
DX: E03.8 Other specified hypothyroidism (principal)
CPT/HCPCS: 36415; 82024; 82533; 84439; 84443; 84480

== ENCOUNTER → 2018-01-22 | Outpatient (CLI) | payer MEDICARE, OTHER ==
--- NOTE | 2018-01-23 10:29 | US ---
EXAMINATION TYPE: US venous doppler duplex LE LT DATE OF EXAM: 01/22/2018 6:38 PM COMPARISON: US 02/16/2017 CLINICAL HISTORY: Left leg pain and swelling per patient on and off. History of DVT in left leg per p atient around . SIDE PERFORMED: Left TECHNIQUE: The lower extremity deep venous system is examined utilizing real time linear array sonog chase with graded compression, doppler sonography and color-flow sonography. VESSELS IMAGED: External Iliac Vein (EIV) Common Femoral Vein Deep Femoral Vein Greater Saphenous Vein * Femoral Vein Popliteal Vein Small Saphenous Vein * Proximal Calf Veins (* superficial vessels) Left Leg: Appears negative for DVT IMPRESSION: 1. Left lower extremity ultrasound negative for deep venous thrombosis.
== END | disposition home or self-care (01) ==
LOC: RADUSMAIN 17:50
PROVIDERS: ATTEND Family Medicine
DX: I82.A22 Chronic embolism and thrombosis of left axillary vein (principal)

== ENCOUNTER → 2018-08-07 | Outpatient (CLI) | payer MEDICARE, OTHER ==
[2018-08-07 09:16] LABS: Basophils # (A) 0.1 k/uL (0-0.2); Basophils % (A) 0 %; Eosinophils # (A) 0.3 k/uL (0-0.7); Eosinophils % (A) 3 %; HCT 48.4 % (34.0-46.0); HGB 15.8 gm/dL (11.4-16.0); Lymphocytes % (A) 18 %; MCHC 32.8 g/dL (31.0-37.0); MCV 82.4 fL (80.0-100.0); Monocytes # (A) 0.5 k/uL (0-1.0); Monocytes % (A) 4 %; Neutrophils # (A) 8.3 k/uL (1.3-7.7); Neutrophils % (A) 74 %; Platelet Count 300 k/uL (150-450); RBC 5.87 m/uL (3.80-5.40); RDW 14.8 % (11.5-15.5); WBC 11.2 k/uL (3.8-10.6)
[2018-08-07 17:51] LABS: Albumin 4.5 g/dL (3.80-4.90); Albumin/Globulin Ratio 2.81 (1.20-2.10); Anion Gap 7.7 mmol/L (4.00-12.00); Calcium 9.2 mg/dL (8.7-10.3); Carbon Dioxide 25.3 mmol/L (21.6-31.8); Globulin 1.6 g/dL (2.1-3.7); Potassium 4.7 mmol/L (3.5-5.5); Total Bilirubin 0.5 mg/dL (0.2-1.2); Total Protein 6.1 g/dL (6.2-8.2)
[2018-08-07 18:00] LABS: T4, Free (Free Thyroxine) 1.4 ng/dL (0.80-1.80)
[2018-08-07 19:02] LABS: HIV 1 AB Non-Reactive (Non-Reactive); HIV AB P24 Non-Reactive (Non-Reactive); HIV P24 AG Non-Reactive (Non-Reactive)
[2018-08-07 19:26] LABS: Hepatitis A Antibody IgM Non-Reactive (Non-Reactive); Hepatitis B Core IgM Non-Reactive (Non-Reactive)
[2018-08-09 07:08] LABS: Vitamin B1 68 ug/L (38-122)
== END | disposition home or self-care (01) ==
LOC: LABWHC1 07:03
PROVIDERS: ATTEND Psychiatry & Neurology Pain Medicine
DX: G35 Multiple sclerosis (principal)
CPT/HCPCS: 36415; 80053; 80074; 82306; 82607; 82746; 83036; 84207; 84425; 84439; 84443; 84481; 84591; 85025; 87390

== ENCOUNTER → 2018-08-07 | Outpatient (CLI) | payer MEDICARE, OTHER ==
--- NOTE | 2018-08-07 08:29 | MM ---
Reason for exam: additional evaluation requested from prior study. Last mammogram was performed 1 year and 4 months ago. Physical Findings: Nurse did not find any significant physical abnormalities on exam. MG 3D Diag Mammo W/Cad FERNANDO Bilateral CC and MLO view(s) were taken. Prior study comparison: April 03, 2017, bilateral MG 3d diag mammo w/cad FERNANDO. The breast tissue is heterogeneously dense. This may lower the sensitivity of mammography. There is chronic nodularity in the left breast. No significant new findings when compared with previous films. These results were verbally communicated with the patient and result sheet given to the patient on 08/07/18. ASSESSMENT: Benign, BI-RAD 2 RECOMMENDATION: Routine screening mammogram of both breasts in 1 year.
--- NOTE | 2018-08-07 08:34 | USB ---
Reason for exam: additional evaluation requested from prior study. US Breast Limited LT Left limited breast ultrasound including focal area of concern, retroareolar and axilla demonstrates a 0.4 x 0.3 x 0.3cm mixed lesion at 7 o'clock smaller than comparison. These results were verbally communicated with the patient and result sheet given to the patient on 08/07/18. ASSESSMENT: Benign, BI-RAD 2 RECOMMENDATION: Routine screening mammogram of both breasts in 1 year.
== END | disposition home or self-care (01) ==
LOC: RADMAMWWP 06:58
PROVIDERS: ATTEND Family Medicine
DX: R92.8 Other abnormal and inconclusive findings on diagnostic imaging of breast (principal); N63.0 Unspecified lump in unspecified breast
CPT/HCPCS: 77066; 76642; G0279; 77062

== ENCOUNTER 2018-09-12 10:13 | Emergency (ER) | payer MEDICARE, OTHER ==
[2018-09-12 10:20] VITALS: RESP 18; TEMP 99.5
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
--- NOTE | 2018-09-12 11:06 | XR ---
EXAMINATION TYPE: XR ankle complete RT, XR foot complete RT DATE OF EXAM: 09/12/2018 CLINICAL HISTORY: Right ankle and foot pain for weeks without known injury TECHNIQUE: Frontal, lateral and oblique images of the right ankle and foot are obtained. COMPARISON: None. FINDINGS: There is no acute fracture/dislocation evident in the right ankle. The ankle mortise appe ars within normal limits. The overlying soft tissue appears unremarkable.There is lucency seen throu gh the medial navicular although there is no overlying focal soft tissue swelling therefore this coul d relate to a vascular groove or subacute fracture. The joint spaces in the right foot are preserved. Overlying soft tissue is unremarkable. IMPRESSION: Lucency over the medial navicular without soft. Therefore this could relate to vascular g roove or subacute fracture. Correlate for point tenderness. There is no acute fracture or dislocatio n in the right ankle.
[2018-09-12 11:33] VITALS: BP 118/89; PULSE 87
== END 2018-09-12 12:08 | disposition home or self-care (01) ==
LOC: EC 10:13
DX: S92.251A Displaced fracture of navicular [scaphoid] of right foot, initial encounter for closed fracture (principal); R50.9 Fever, unspecified; J44.9 Chronic obstructive pulmonary disease, unspecified; I50.9 Heart failure, unspecified; M79.7 Fibromyalgia; E78.5 Hyperlipidemia, unspecified; M19.90 Unspecified osteoarthritis, unspecified site; G35 Multiple sclerosis; G43.909 Migraine, unspecified, not intractable, without status migrainosus; F32.9 Major depressive disorder, single episode, unspecified; F41.9 Anxiety disorder, unspecified; F17.200 Nicotine dependence, unspecified, uncomplicated; Z79.1 Long term (current) use of non-steroidal anti-inflammatories (NSAID); Z79.891 Long term (current) use of opiate analgesic; Z79.51 Long term (current) use of inhaled steroids; Z79.82 Long term (current) use of aspirin; Z79.52 Long term (current) use of systemic steroids; Z79.899 Other long term (current) drug therapy; Z88.1 Allergy status to other antibiotic agents; Z88.8 Allergy status to other drugs, medicaments and biological substances; Z86.718 Personal history of other venous thrombosis and embolism; Z53.29 Procedure and treatment not carried out because of patient's decision for other reasons
CPT/HCPCS: 29515; 99283

== ENCOUNTER → 2018-09-12 | Outpatient (CLI) | payer MEDICARE, OTHER ==
--- NOTE | 2018-09-12 10:25 | FL ---
EXAMINATION TYPE: FL barium swallow DATE OF EXAM: 09/12/2018 CLINICAL HISTORY: History of gastroesophageal reflux and hiatal hernia. Patient presents with laryngi tis and hoarseness. TECHNIQUE: A double contrast esophagram is performed utilizing air and barium. A total of 2.24 lisa dariel of fluoroscopic time was utilized during procedure. 41 fluoroscopic images were saved. COMPARISON: None FINDINGS: The esophagus shows delayed motility and emptying into the stomach throughout the examinati on without tertiary contractions. There is very mild narrowing at the gastroesophageal junction sugge sting a mild incomplete stricture given the delayed passage. There is a very small hiatal hernia seen on the exam. Minimal gastroesophageal reflux was seen during real time performance of this study alt patric moderate grade intraesophageal reflux was noted. IMPRESSION: 1. Moderate grade intraesophageal reflux with delayed propulsion through the esophagus and no tertiar y contractions. Finding suggests very mild incomplete stricture at the gastroesophageal junction, pos sibly on the basis of chronic gastroesophageal reflux as mild gastroesophageal reflux is identified o n the examination. 2. Small hiatal hernia.
== END | disposition home or self-care (01) ==
LOC: RADFLWHC 08:53
PROVIDERS: ATTEND Otolaryngology
DX: K21.9 Gastro-esophageal reflux disease without esophagitis (principal); K44.9 Diaphragmatic hernia without obstruction or gangrene
CPT/HCPCS: 74220

== ENCOUNTER → 2018-09-17 | Outpatient (CLI) | payer MEDICARE, OTHER ==
--- NOTE | 2018-09-17 22:03 | MR ---
MRI CERVICAL SPINE and brain: CLINICAL HISTORY: Multiple sclerosis TECHNIQUE: Multiplanar, multisequence imaging of the brain and cervical spine is performed without IV contrast COMPARISON: Prior MRI brain 05/16/2017, MR cervical spine 07/27/2017 FINDINGS: MRI BRAIN: There is no restricted diffusion. No evident hemorrhage or hydrocephalus. There are normal vascular flow voids. There are 30-40 lesions present on T2 and inversion recovery sequences within the deep white matter i ncluding the periventricular, pericallosal, and juxtacortical white matter. The lesions are stable in size and distribution. Corpus callosum, pituitary, cervical medullary junction, cerebellopontine ang les are stable. The orbits show an unremarkable appearance. IMPRESSION: Stable signal abnormalities compatible with patient's history of multiple sclerosis. Cervical spine MRI: Sagittal images of the cervical spine show the craniocervical junction to appear within normal limits. The cervical and upper thoracic spinal cord is stable in course, caliber, and signal. Vertebral alignment is stable. The vertebral body and intravertebral disk heights are not significantly changed, there is spondylosis especially at C5-6, C6-7 with some endplate discogenic ma rrow signal change, loss of disc height and signal compatible disc desiccation and degenerative disc disease. Axial images show a similar appearance. C5-6 shows posterior extension of endplate disc complex, ther e is uncovertebral joint hypertrophy and facet arthropathy causing foraminal encroachment on the left and at C4-5 causing foraminal encroachment as on prior exams. C6-7 shows posterior extension of endp late disc complex as on prior exam and there is bilateral foraminal encroachment without significant central canal stenosis. Bilateral foraminal encroachment also present at C7-T1 without disc herniatio n. IMPRESSION: Stable degenerative disc disease with multilevel foraminal encroachment.
== END | disposition home or self-care (01) ==
LOC: RADMRIMAIN 19:02
DX: G35 Multiple sclerosis (principal); M50.322 Other cervical disc degeneration at C5-C6 level
CPT/HCPCS: 70551; 72141

== ENCOUNTER → 2018-09-19 | Outpatient (CLI) | payer MEDICARE, OTHER ==
--- NOTE | 2018-09-19 21:25 | MR ---
EXAMINATION TYPE: MR keller wo con DATE OF EXAM: 09/19/2018 COMPARISON: None HISTORY: Back Pain with HX of MS, Prior exams on PACS CONTRAST: Performed utilizing 0 mL intravenous Gadavist gadolinium contrast. TECHNIQUE: Multiplanar, multiecho imaging on a 3.0 Stephanie magnet is performed through the thoracic spi ne. T4-5: There is a small central focal bulge with mild anterior thecal sac compression. No AP spinal ca nal stenosis is present. No cord contact is evident. T8-9: Mild broad-based disc bulge has anterior thecal sac contact. This is in close approximation wit h the spinal cord. No spinal canal stenosis or neural foraminal stenosis is present. T11-12: Facet hypertrophy is posterior lateral thecal sac compression. This comes in close approximat ion with the spinal cord on the right. No deformity is evident. No spinal canal stenosis is present. Neural foramen are patent. Spinal cord maintains normal signal through its visualized course. No suspicious hyperintensity on T2 -weighted sequences is evident to suggest multiple sclerosis plaque. Vertebral body alignment is normal. Vertebral body heights are preserved. Disc heights are preserved. No spinal canal stenosis is evident. IMPRESSIONS: 1. Facet hypertrophy comes in close approximation to the spinal cord at the T11-T12 level on the [facility] t. 2. Disc bulging T4-5, T8-9 without spinal canal stenosis EXAMINATION TYPE: MR keller wo con DATE OF EXAM: 09/19/2018 COMPARISON: 05/13/2016 HISTORY: Back Pain with HX of MS, Prior exams on PACS CONTRAST: 0 mL intravenous Gadavist. TECHNIQUE: Multiplanar, multisequence images of the lumbar spine were acquired. FINDINGS: L5-S1: No significant disc bulge or disc herniation. No spinal canal stenosis. No foraminal stenosi s. Facet hypertrophy has mild posterior lateral thecal sac compression on the left.. L4-L5: No significant disc bulge or disc herniation. No spinal canal stenosis. No foraminal stenosi s. There is a large degree of facet hypertrophy. Mild posterior lateral thecal sac compression is pr esent. Some mild disc desiccation is present. L3-L4: Mild disc bulge has anterior thecal sac contact. No AP spinal canal stenosis is present. No f oraminal stenosis. . L2-L3: No significant disc bulge or disc herniation. No spinal canal stenosis. No foraminal stenosi s. Facet hypertrophy is posterior lateral thecal sac compression. L1-L2: No significant disc bulge or disc herniation. No spinal canal stenosis. No foraminal stenosi s. . T12-L1: No significant disc bulge or disc herniation. No spinal canal stenosis. No foraminal stenos is. . Distal spinal cord appears normal. No signal abnormality is evident. No cord expansion is evident. IMPRESSION: 1. Facet hypertrophy present L5-S1, L4-5 and L2-3 with posterior lateral thecal sac compression discu ssed above. 2. No significant disc herniation or disc bulge. 3. Exam appears stable from comparison.
== END | disposition home or self-care (01) ==
LOC: RADMRIMAIN 17:53
PROVIDERS: ATTEND Obstetrics & Gynecology Gynecology
DX: M51.24 Other intervertebral disc displacement, thoracic region (principal); G95.29 Other cord compression; G35 Multiple sclerosis
CPT/HCPCS: 72146; 72148

== ENCOUNTER 2018-10-01 09:09 | Day surgery (SDC) | payer MEDICARE, OTHER ==
[2018-09-30 11:32] VITALS: BMI 36.3
[~2018-10-01 09:09] MED LIST: LACTATED RINGERS 1,000 ML IV SCH; LIDOCAINE 1% 20 ML VIAL (10MG/ML) FOR IV START INTRADERMA PRN
[2018-10-01 09:43] VITALS: TEMP 97.5
[2018-10-01] MEDS ORDERED: MIDAZOLAM 2 MG/2 ML VIAL ONE (10:22)
[2018-10-01] MEDS ORDERED: fentaNYL (PF) 50 MCG/ML 2 ML AMP ONE (10:22)
[2018-10-01] MEDS ORDERED: PROPOFOL 10 MG/ML 20 ML VIAL IV ONE (10:22)
[2018-10-01 11:02] LABS: Glucose,Whole Blood 128 mg/dL (75-99)
[2018-10-01 11:05] VITALS: BP 102/71; PULSE 78; RESP 16
--- NOTE | 2018-10-01 13:14 | P.PCN ---
Date of Procedure: 10/01/18 Procedure(s) Performed: Procedure: Esophagogastroduodenoscopy and biopsy. Preoperative diagnosis: Dysphagia and history of chronic reflux. Postoperative diagnosis: 1. Small sliding hiatal hernia with no obvious esophagitis or complicated reflux disease. 2. Mild antral gastritis. 3. Multiple biopsies obtained from the duodenum, antrum and esophagus. Preparation and sedation: Was provided by anesthesia. Brief clinical history: The patient is a 48-year-old female who is scheduled for this evaluation because of chronic reflux symptoms and more recent history of hoarseness over the last 2 or 3 months and intermittent dysphagia. The patient has been on acid suppressive therapy and was evaluated by ENT for throat symptoms and dysphagia and there were no vocal cord polyps and was advised to have this evaluation. She had vocal cord polyps removed in the past. The patient denies bleeding or other alarm symptoms. Procedure: With the patient on her left lateral decubitus position and after informed consent and adequate sedation, I passed the Olympus-GIF 03/27/1990 video upper endoscope through the cricopharyngeus down the esophagus. GE junction was around 41 cm from the incisors. The esophagus did not show any obvious esophagitis or complicated reflux disease. The endoscope was then passed into the stomach which was insufflated with air and inspected in detail including the retroflex view in the cardia. There was some mottling and erythema in the antrum but no ulcers or erosions. There was some bile-colored fluid in the stomach which was suctioned. Pyloric channel, duodenal bulb, post bulbar area and descending duodenum appeared within normal limits. I obtained multiple biopsies from the duodenum, antrum and esophagus then the endoscope was withdrawn. The patient tolerated the procedure well Plan: The patient was reassured. Will await biopsy results and make further plans can be made. Consideration can be given for a 24-hour pH/impedance study to assess the nature of the reflux and whether it is acid or non-acid. I will be happy to see in the office if her symptoms persist.
== END 2018-10-01 11:33 | disposition home or self-care (01) ==
LOC: ORWHC2ENDO 09:09
DX: K29.50 Unspecified chronic gastritis without bleeding (principal); K21.0 Gastro-esophageal reflux disease with esophagitis; K44.9 Diaphragmatic hernia without obstruction or gangrene; J44.9 Chronic obstructive pulmonary disease, unspecified; M19.90 Unspecified osteoarthritis, unspecified site; G47.33 Obstructive sleep apnea (adult) (pediatric); E78.5 Hyperlipidemia, unspecified; I50.9 Heart failure, unspecified; E07.9 Disorder of thyroid, unspecified; Z86.718 Personal history of other venous thrombosis and embolism; E27.40 Unspecified adrenocortical insufficiency; Z79.1 Long term (current) use of non-steroidal anti-inflammatories (NSAID); Z79.899 Other long term (current) drug therapy; Z88.1 Allergy status to other antibiotic agents; Z88.8 Allergy status to other drugs, medicaments and biological substances; Z90.49 Acquired absence of other specified parts of digestive tract; Z88.3 Allergy status to other anti-infective agents; Z98.51 Tubal ligation status
CPT/HCPCS: 81025; 88305; 43239; J2250; J3010; J2704

== ENCOUNTER → 2018-12-06 | Outpatient (CLI) | payer MEDICARE, OTHER ==
--- NOTE | 2018-12-23 19:53 | EM ---
EVENT MONITOR DATE OF SERVICE: 12/23/2018 AGE:: 48 SEX:: F INDICATIONS:: RESULTS: 1. 14 day event monitor shows sinus mechanism. 2. Sinus tachycardia. 3. Occasional premature beats. 4. No tachy or Bradyarrhythmias. ELEUTERIOL / IJN: [id number] /
== END | disposition home or self-care (01) ==
LOC: RADECHMAIN 12:43
PROVIDERS: ATTEND Family Medicine
DX: E27.40 Unspecified adrenocortical insufficiency (principal); J44.9 Chronic obstructive pulmonary disease, unspecified
CPT/HCPCS: 93270

== ENCOUNTER 2019-02-05 07:40 | Day surgery (SDC) | payer MEDICARE, OTHER ==
[2018-11-13 09:53] VITALS: BMI 36.4
[~2019-02-05 07:40] MED LIST changes: +DEXAMETHASONE SOD PHOSPHATE 10 MG/ML 1 ML VIAL IV ONE; +DEXAMETHASONE SOD PHOSPHATE 4 MG/ML 1 ML VIAL IV ONE; +FAMOTIDINE 20 MG/2 ML VIAL IV ONE; +HYDROmorphone 0.5 MG/0.5 ML SYRINGE IVP PRN; +ONDANSETRON 4 MG/2 ML VIAL IVP ONE; +SCOPOLAMINE 1.5MG/72HR PATCH TRANSDERM ONE
[2019-02-05 08:39] LABS: Glucose,Whole Blood 112 mg/dL (75-99)
[2019-02-05] MEDS ORDERED: PROPOFOL 10 MG/ML 20 ML VIAL IV ONE (09:52)
[2019-02-05] MEDS ORDERED: LIDOCAINE 1% INJ 10MG/ML (20 ML MDV) ONE (09:52)
[2019-02-05] MEDS ORDERED: MIDAZOLAM 2 MG/2 ML VIAL ONE (09:52)
[2019-02-05] MEDS ORDERED: SUCCINYLCHOLINE CHLORIDE 100 MG/5 ML SYR IV ONE (09:52)
[2019-02-05] MEDS ORDERED: fentaNYL (PF) 50 MCG/ML 2 ML AMP ONE (09:52)
--- NOTE | 2019-02-05 10:25 | P.OP ---
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 She's had some difficulty with hoarseness and noted to have inter arytenoid leukoplakia. Which was mild as well as findings consistent otherwise with vocal cord scarring Operative Findings: Bilateral mild diffuse edema of the true vocal cords but no focal lesions on the true vocal cords. There was some mild interarytenoid leukoplakia with a sample biopsy performed Description of Procedure: The patient was brought in the operative suite and placed in a supine position. Patient underwent induction of general anesthesia with oral endotracheal intubation without difficulty. The patient was prepped and draped in usual aseptic fashion. The tooth guard was placed and direct laryngoscopy was performed with systematic evaluation of the base of tongue vallecula both pirif orm sinuses post cricoid area and endolarynx. With the laryngoscope in position to visualize the interarytenoid area in a biopsy was taken for permanent section. The true vocal cords appeared overall unremarkable other then mild diffuse edema and therefore no further biopsies were taken. The laryngoscope and tooth guard removed. Hemostasis had been gained spontaneously. The patient was then allowed to emerge from general anesthesia having tolerated procedure well and was extubated in the operating suite and transferred to the postop recovery area in satisfactory condition. Note that patient requested antibiotic as she's had bronchitis previously after intubations and therefore was placed on Zithromax
[2019-02-05 10:57] VITALS: TEMP 97.3
[2019-02-05] MEDS ORDERED: KETOROLAC 30 MG/ML 1 ML VIAL IVP ONE (11:10)
[2019-02-05 12:17] VITALS: BP 108/71; PULSE 86; RESP 18
== END 2019-02-05 12:22 | disposition home or self-care (01) ==
LOC: OR 07:40
PROVIDERS: ATTEND Otolaryngology
DX: J37.0 Chronic laryngitis (principal); J45.909 Unspecified asthma, uncomplicated; J43.9 Emphysema, unspecified; M19.90 Unspecified osteoarthritis, unspecified site; I50.9 Heart failure, unspecified; F32.9 Major depressive disorder, single episode, unspecified; F41.9 Anxiety disorder, unspecified; M79.7 Fibromyalgia; H91.90 Unspecified hearing loss, unspecified ear; F17.210 Nicotine dependence, cigarettes, uncomplicated; G35 Multiple sclerosis; E66.9 Obesity, unspecified; Z68.36 Body mass index [BMI] 36.0-36.9, adult; E07.9 Disorder of thyroid, unspecified; K21.9 Gastro-esophageal reflux disease without esophagitis; M81.0 Age-related osteoporosis without current pathological fracture; G47.33 Obstructive sleep apnea (adult) (pediatric); G43.909 Migraine, unspecified, not intractable, without status migrainosus; H93.19 Tinnitus, unspecified ear; R42 Dizziness and giddiness; Z90.49 Acquired absence of other specified parts of digestive tract; Z98.51 Tubal ligation status; Z83.3 Family history of diabetes mellitus; Z80.1 Family history of malignant neoplasm of trachea, bronchus and lung; Z82.5 Family history of asthma and other chronic lower respiratory diseases; Z79.1 Long term (current) use of non-steroidal anti-inflammatories (NSAID); Z79.890 Hormone replacement therapy; Z79.891 Long term (current) use of opiate analgesic; Z79.52 Long term (current) use of systemic steroids; Z79.899 Other long term (current) drug therapy; Z88.2 Allergy status to sulfonamides; Z88.1 Allergy status to other antibiotic agents; Z88.8 Allergy status to other drugs, medicaments and biological substances; Z91.048 Other nonmedicinal substance allergy status; Z91.09 Other allergy status, other than to drugs and biological substances
CPT/HCPCS: 81025; 88305; 31536; J2250; J0690; J2001; J3010; J1885; J0330; J2704

== ENCOUNTER 2019-04-01 09:45 | Inpatient (IN) | payer MEDICARE, OTHER ==
[2019-04-01] MEDS ORDERED: ALBUTEROL NEBULIZED 2.5 MG/3 ML INHALATION STA (10:06)
[2019-04-01] MEDS ORDERED: SODIUM CHLORIDE 0.9% 1,000 ML IV STA (10:06)
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
[2019-04-01 10:26] LABS: Basophils # (A) 0.1 k/uL (0-0.2); Basophils % (A) 0 %; Eosinophils # (A) 0.4 k/uL (0-0.7); Eosinophils % (A) 2 %; HCT 42.5 % (34.0-46.0); HGB 13.6 gm/dL (11.4-16.0); Hypochromasia Slight; Lymphocytes # (A) 2.3 k/uL (1.0-4.8); Lymphocytes % (A) 8 %; MCH 25.7 pg (25.0-35.0); MCHC 31.9 g/dL (31.0-37.0); MCV 80.7 fL (80.0-100.0); Mean Platelet Volume 6.7; Monocytes % (A) 4 %; Neutrophils # (A) 23.9 k/uL (1.3-7.7); Neutrophils % (A) 85 %; Platelet Count 572 k/uL (150-450); RBC 5.26 m/uL (3.80-5.40); RDW 14.6 % (11.5-15.5)
[2019-04-01 10:33] LABS: ALT 16 U/L (9-52); AST 13 U/L (14-36); African American GFR (CKD) >90 (>60 ml/min/1.73 sqM); Albumin 3.5 g/dL (3.5-5.0); Alkaline Phosphatase 136 U/L (38-126); Anion Gap 11 mmol/L; Blood Urea Nitrogen 13 mg/dL (7-17); Calcium 9.1 mg/dL (8.4-10.2); Carbon Dioxide 28 mmol/L (22-30); Chloride 99 mmol/L (98-107); Glucose 161 mg/dL (74-99); Magnesium 1.7 mg/dL (1.6-2.3); Non-African American GFR(CKD) >90 (>60 ml/min/1.73 sqM); Sodium 138 mmol/L (137-145); Total Bilirubin 0.6 mg/dL (0.2-1.3); Total Protein 6.2 g/dL (6.3-8.2)
[2019-04-01 10:37] LABS: INR 0.9 (<1.2); Partial Thromboplastin Time 28.4 sec (22.0-30.0); Prothrombin Time 9.9 sec (9.0-12.0)
[2019-04-01 10:41] LABS: D-Dimer 1.18 mg/L FEU (<0.60)
--- NOTE | 2019-04-01 11:56 | US ---
EXAMINATION TYPE: US venous doppler duplex LE LT DATE OF EXAM: 04/01/2019 11:46 AM COMPARISON: NONE CLINICAL HISTORY: Pain. Pain. SIDE PERFORMED: Left TECHNIQUE: The lower extremity deep venous system is examined utilizing real time linear array sonog chase with graded compression, doppler sonography and color-flow sonography. VESSELS IMAGED: External Iliac Vein (EIV) Common Femoral Vein Deep Femoral Vein Greater Saphenous Vein * Femoral Vein Popliteal Vein Small Saphenous Vein * Proximal Calf Veins (* superficial vessels) Left Leg: Negative for DVT IMPRESSION: 1. No diagnostic evidence of DVT as visualized.
--- NOTE | 2019-04-01 12:08 | CT ---
CT CHEST FOR PULMONARY EMBOLISM. EXAMINATION TYPE: CT chest angio for PE DATE OF EXAM: 04/01/2019 INDICATION: Cough, SOB CT DLP: 537.6 mGycm, Automated exposure control for dose reduction was used. CONTRAST: Patient injected with 77 mL of Isovue 370. COMPARISON: TECHNIQUE: CT of the chest is performed on a spiral scan at 2 mm thick sections. Study is performed with intravenous contrast timed for evaluation for pulmonary embolism. This will limit additional po rtions of the evaluation. 3-D MIP images reconstructed by the technologist are reviewed on the compu ter in the coronal and sagittal planes. FINDINGS: No persistent filling defects are evident to suggest an acute pulmonary embolism. No signs of right h eart strain is evident. Right suprahilar lymph node measures 2.4 cm. The ascending aorta diameter at the level of the main pulmonary artery is 3.3 cm. The main pulmonar y artery diameter at the bifurcation is 2.1 cm. There is a 0.4 cm nodule right middle lobe. Series 401 image 67. 0.5 cm nodules in the periphery of t he right middle lobe at the same level. There is extensive diffuse fine nodules present bilaterally. This is extensive but nonspecific. Infectious etiology and neoplasm within the differential. Limited CT section through the upper abdomen are unremarkable. IMPRESSIONS: 1. No acute pulmonary embolism. 2. Soft tissue density right suprahilar region. Lymph node or neoplasm is within the differential. 3. Density Reticular nodular increase infiltrate to the mid lung washburn bilaterally this is nonspecif ic in etiology such as neoplasm and infection should be considered. Etiology such as sarcoidosis coul d be considered.
[2019-04-01] MEDS ORDERED: PNEUMONIA PROTOCOL UTILIZED 1 EACH MISC PO PRN (13:15)
[2019-04-01] MEDS ORDERED: AZITHROMYCIN 500 MG in SODIUM CHLORIDE 0.9% 250 ML IVPB STA (13:15)
[2019-04-01] MEDS ORDERED: POTASSIUM CHLORIDE ER 20 MEQ TAB.ER PO PRN (14:15)
[2019-04-01] MEDS ORDERED: ONDANSETRON 4 MG TAB PO PRN (14:15)
[2019-04-01] MEDS: IPRATROPIUM-ALBUTEROL 3 ML NEB INHALATION PRN ×2 (15:33→19:37)
[2019-04-01] MEDS: INSULIN ASPART (NovoLOG) 100 UNIT/ML VIAL SQ SCH ×2 (17:25→20:36)
[2019-04-01 17:32] LABS: Glucose,Whole Blood 109 mg/dL (75-99)
[2019-04-01] MEDS: GABAPENTIN 400 MG CAP PO SCH ×2 (17:35→21:35)
[2019-04-01] MEDS: oxyCODONE-APAP 10-325MG 1 EACH TAB PO PRN (17:41)
[2019-04-01] MEDS: methylPREDNISolone SOD SUCCI 125 MG/2 ML VIAL IV SCH (18:10)
[2019-04-01] MEDS: diphenhydrAMINE 25 MG CAP PO PRN (18:10)
[2019-04-01 20:30] LABS: Glucose,Whole Blood 162 mg/dL (75-99)
[2019-04-01] MEDS: MORPHINE SULFATE ER 30 MG TABLET PO SCH (20:36)
[2019-04-01] MEDS ORDERED: ZONISAMIDE 100 MG CAP PO PRN (20:51)
[2019-04-01] MEDS: METHOCARBAMOL 750 MG TAB PO PRN (21:34)
[2019-04-01] MEDS: tiZANidine 4 MG TAB PO PRN (21:34)
[2019-04-01] MEDS: MORPHINE SULFATE ER 15 MG TABLET PO SCH (21:35)
[2019-04-01] MEDS: DULoxetine HCL 30 MG CAPSULE.DR PO SCH (21:37)
[2019-04-01] MEDS: DULoxetine HCL 60 MG CAPSULE.DR PO SCH (21:37)
--- NOTE | 2019-04-01 21:46 | P.HPIM ---
History of Present Illness H&P Date: 04/01/19 Karlos Rojo is a 49 yo F with PMH significant for COPD, multiple sclerosis, chronic pain, fibromyalgia, history of DVT who presented to [facility] ED with 10 day history of progressive cough and shortness of breath. She notes fevers at home the past few days with tmax 102 F. She has been coughing green sputum. Pt has continued to smoke 1/2 PPD. She had not seen anyone about this outpatient and denies sick contacts. In the ED SpO2 90% on RA, WBC 28k, D-dimer elevated. CTA negative for PE but did show diffuse bilateral infiltrate. Review of Systems All systems: negative Constitutional: Reports fatigue, Reports fever, Reports malaise, Denies chills Eyes: denies blurred vision, denies pain Ears, nose, mouth and throat: Denies headache, Denies sore throat Cardiovascular: Denies chest pain, Denies shortness of breath Respiratory: Reports cough, Reports cough with sputum, Reports wheezing Gastrointestinal: Denies abdominal pain, Denies diarrhea, Denies nausea, Denies vomiting Genitourinary: Denies dysuria, Denies hematuria Musculoskeletal: Denies myalgias Integumentary: Denies pruritus, Denies rash Neurological: Denies numbness, Denies weakness Psychiatric: Denies anxiety, Denies depression Endocrine: Denies fatigue, Denies weight change Past Medical History Past Medical History: Asthma, Blood Disorder, Heart Failure, COPD, Deep Vein Thrombosis (DVT), Eye Disorder, Fibromyalgia, Hearing Disorder / Deafness, Hyperlipidemia, Memory Impairment, Musculoskeletal Disorder, Neurologic Disorder, Osteoarthritis (OA), Pneumonia, Skin Disorder, Sleep Apnea/CPAP/BIPAP, Syncope, Thyroid Disorder Additional Past Medical History / Comment(s): Multiple sclerosis, bronchitis, factor 5 leiden, RUBI-does not wear device, DVT L leg about 2013, hiatal hernia, hoarseness/leucoplasia, adrenal insufficiency/chronic steroid use, migraines, DJD, chronic back pain, bursitis, optic neuritis bilaterally, glaucoma bilateral, bilateral tinnitis, UTI, rosacia, sinus problems, insomnia, hypersomnia. History of Any Multi-Drug Resistant Organisms: None Reported Date of last positivie culture/infection: 2013 MDRO Source:: stomach Past Surgical History: Bladder Surgery, Section, Cholecystectomy, Tubal Ligation Additional Past Surgical History / Comment(s): 09-24-18 bladder stimulator, 02/05/19 microlarygoscopy/bx, vocal cord polypectomies, cervical bx, bladder suspension, EGD with bx, colonoscopy Past Anesthesia/Blood Transfusion Reactions: Motion Sickness Smoking Status: Current every day smoker - Past Family History Brother(s) Family Medical History: Deep Vein Thrombosis (DVT) Father Family Medical History: Deep Vein Thrombosis (DVT) Additional Family Medical History / Comment(s): Patient states that her father has no cardiac history but his father had previous TN's. Mother Family Medical History: Cancer, Deep Vein Thrombosis (DVT), Pulmonary Embolus Additional Family Medical History / Comment(s): Cervical cancer. Medications and Allergies Home Medications Medication Instructions Recorded Confirmed Type EPINEPHrine (Auto Inject) [Epipen] 0.3 mg IM ONCE PRN 10/06/15 04/01/19 History Ergocalciferol [Vitamin D2 50,000 unit PO TH 01/26/16 04/01/19 History (DRISDOL)] Gabapentin 800 mg PO TID 08/13/16 04/01/19 History LORazepam [Ativan] 1 mg PO TID PRN 05/21/17 04/01/19 History Meclizine [Antivert] 12.5 mg PO Q12H PRN 05/21/17 04/01/19 History Meloxicam [Mobic] 15 mg PO HS 05/21/17 04/01/19 History tiZANidine [Zanaflex] 4 mg PO TID 05/21/17 04/01/19 History Zonisamide [Zonegran] 100 - 200 mg PO HS PRN 10/15/17 04/01/19 History Methocarbamol [Robaxin] 750 mg PO TID 09/12/18 04/01/19 History Furosemide [Lasix] 40 mg PO DAILY PRN 09/30/18 04/01/19 History Potassium Chloride [Klor-Con 20] 20 meq PO DAILY PRN 09/30/18 04/01/19 History DULoxetine HCL [Cymbalta] 30 mg PO HS 11/13/18 04/01/19 History Dextroamphetamine/Amphetamine 30 mg PO BID 11/13/18 04/01/19 History [Adderall] Ondansetron HCl [Zofran] 8 mg PO TID PRN 11/13/18 04/01/19 History oxyCODONE HCL/ACETAMINOPHEN 1 tab PO TID PRN 11/13/18 04/01/19 History [Percocet 10-325 mg] Levothyroxine Sodium [Synthroid] 100 mcg PO QAM 02/04/19 04/01/19 History buPROPion HCL [Wellbutrin SR] 150 mg PO BID 02/04/19 04/01/19 History DULoxetine HCL [Cymbalta] 60 mg PO HS 04/01/19 04/01/19 History Hydrocortisone [Cortef] 10 mg PO HS 04/01/19 04/01/19 History Hydrocortisone [Cortef] 30 mg PO DAILY 04/01/19 04/01/19 History Ketorolac [Toradol] 10 mg PO TID 04/01/19 04/01/19 History Morphine Sulfate ER [Ms Contin] 30 mg PO Q12HR 04/01/19 04/01/19 History Omeprazole 40 mg PO DAILY 04/01/19 04/01/19 History Rizatriptan Odt [Maxalt CLIENT CARE REPRESENTATIVE] 5 mg PO BID PRN 04/01/19 04/01/19 History Allergies Allergy/AdvReac Type Severity Reaction Status Date / Time sulfamethoxazole Allergy See Comment Verified 04/01/19 11:15 [From Bactrim] trimethoprim [From Bactrim] Allergy See Comment Verified 04/01/19 11:15 doxycycline AdvReac Rash/Hives Verified 04/01/19 11:15 glatiramer (copolymer 1) AdvReac Rapid Verified 04/01/19 11:15 [From Copaxone] Heart Rate,hives steroids AdvReac Unknown Uncoded 04/01/19 09:50 Physical Exam Vitals: Vital Signs Temp Pulse Pulse Resp BP BP Pulse Ox 04/01/19 20:29 98.5 F 92 18 114/73 93 L 04/01/19 19:50 90 04/01/19 19:39 88 04/01/19 16:00 95 17 04/01/19 15:42 89 04/01/19 15:36 92 L 04/01/19 15:35 87 04/01/19 15:00 98.4 F 95 17 99/65 94 L 04/01/19 12:40 109 H 21 122/77 90 L 04/01/19 12:39 89 L 04/01/19 10:48 118 H 04/01/19 10:15 120 H 04/01/19 09:52 25 H 04/01/19 09:50 99.2 F 123 H 26 H 103/56 92 L Intake and Output 04/01/19 04/01/19 04/01/19 06:59 14:59 22:59 Intake Total 250 Balance 250 Intake: Intake, IV Titration 250 Amount Azithromycin 500 mg In 250 Sodium Chloride 0.9% 250 ml @ 250 mls/hr IVPB ONCE STA Rx#:[id number] Other: Weight 104.326 kg General: well developed, well nourished, NAD. Obese. Vitals reviewed HEENT: normocephalic. Ptosis bilaterally. PERRL. Mucus membranes moist Neck: supple, no thyromegaly or JVD Lymph: no cervical or axillary LAD CV: RRR, no murmur. Pulses 2+ Lungs: normal respiratory effort. Expiratory wheezing. Rhonchi and fine rales throughout Abd: soft, obese, no organomegaly Ext: no cyanosis, clubbing or edema Neuro: alert and oriented x3, no focal deficits Skin: warm and dry Results CBC & Chem 7: 04/01/19 10:05 04/01/19 10:05 Labs: Abnormal Lab Results - Last 24 Hours (Table) 04/01/19 04/01/19 04/01/19 Range/Units 10:05 10:05 10:05 WBC 28.0 H (3.8-10.6) k/uL Plt Count 572 H (150-450) k/uL Neutrophils # 23.9 H (1.3-7.7) k/uL D-Dimer 1.18 H (<0.60) mg/L FEU Glucose 161 H (74-99) mg/dL POC Glucose (mg/dL) (75-99) mg/dL AST 13 L (14-36) U/L Alkaline Phosphatase 136 H (38-126) U/L Total Protein 6.2 L (6.3-8.2) g/dL 04/01/19 04/01/19 Range/Units 17:20 20:28 WBC (3.8-10.6) k/uL Plt Count (150-450) k/uL Neutrophils # (1.3-7.7) k/uL D-Dimer (<0.60) mg/L FEU Glucose (74-99) mg/dL POC Glucose (mg/dL) 109 H 162 H (75-99) mg/dL AST (14-36) U/L Alkaline Phosphatase (38-126) U/L Total Protein (6.3-8.2) g/dL Thrombosis Risk Factor Assmnt - Choose All That Apply Any of the Below Risk Factors Present?: Yes Each Factor Represents 1 point: Acute TN, Age 41-60 years, Obesity (BMI >25), Serious lung disease incl. pneumonia (< 1month) Other Risk Factors: Yes Each Risk Factor Represents 3 Points: Family history of DVT/PE, History of DVT/PE Other congenital or acquired thrombophilia - If yes, enter type in comment: No Thrombosis Risk Factor Assessment Total Risk Factor Score: 10 Thrombosis Risk Factor Assessment Level: High Risk Assessment and Plan (1) Community acquired bacterial pneumonia Current Visit: Yes Status: Acute Code(s): J15.9 - UNSPECIFIED BACTERIAL PNEUMONIA SNOMED Code(s): 032540751 (2) Multiple sclerosis Current Visit: Yes Status: Acute Code(s): G35 - MULTIPLE SCLEROSIS SNOMED Code(s): 52715562 (3) Chronic pain Current Visit: Yes Status: Acute Code(s): G89.29 - OTHER CHRONIC PAIN SNOMED Code(s): 80142464 (4) Fibromyalgia Current Visit: Yes Status: Acute Code(s): M79.7 - FIBROMYALGIA SNOMED Code(s): 449812234 (5) Acute exacerbation of chronic obstructive airways disease Current Visit: No Status: Acute Code(s): J44.1 - CHRONIC OBSTRUCTIVE PULMONARY DISEASE W (ACUTE) EXACERBATION SNOMED Code(s): 059696469 (6) Movement disorder Current Visit: No Status: Acute Code(s): G25.9 - EXTRAPYRAMIDAL AND MOVEMENT DISORDER, UNSPECIFIED SNOMED Code(s): 58720399 Plan: 1. COPD exacerbation. Secondary to CAP. Rocephin and azithromycin. Solumedrol IV. Duonebs per RT 2. CAP 3. MS 4. Chronic pain syndrome. Continue home narcotics 5. Fibromyalgia. Continue cymbalta and wellbutrin 6. Leg edema. Continue home lasix 20 mg qd
[2019-04-02] MEDS: methylPREDNISolone SOD SUCCI 125 MG/2 ML VIAL IV SCH ×4 (00:12→16:46)
[2019-04-02] MEDS: diphenhydrAMINE 25 MG CAP PO PRN ×5 (00:12→23:27)
[2019-04-02] MEDS: oxyCODONE-APAP 10-325MG 1 EACH TAB PO PRN ×3 (02:23→20:16)
[2019-04-02] MEDS: tiZANidine 4 MG TAB PO PRN ×2 (05:36→17:14)
[2019-04-02] MEDS: LEVOTHYROXINE 100 MCG TAB PO SCH (05:36)
[2019-04-02] MEDS: METHOCARBAMOL 750 MG TAB PO PRN ×2 (05:36→17:14)
[2019-04-02 07:01] LABS: Glucose,Whole Blood 237 mg/dL (75-99)
[2019-04-02] MEDS: IPRATROPIUM-ALBUTEROL 3 ML NEB INHALATION PRN ×4 (08:22→19:57)
[2019-04-02] MEDS ORDERED: DULoxetine HCL 60 MG CAPSULE.DR PO SCH (09:00)
[2019-04-02 09:19] LABS: Basophils % (A) 0 %; Eosinophils % (A) 0 %; HCT 40.7 % (34.0-46.0); HGB 12.8 gm/dL (11.4-16.0); Hypochromasia Slight; Lymphocytes # (A) 1.4 k/uL (1.0-4.8); Lymphocytes % (A) 8 %; MCH 25.7 pg (25.0-35.0); MCHC 31.3 g/dL (31.0-37.0); MCV 82.2 fL (80.0-100.0); Mean Platelet Volume 6.9; Monocytes # (A) 0.4 k/uL (0-1.0); Monocytes % (A) 2 %; Neutrophils # (A) 15.2 k/uL (1.3-7.7); Neutrophils % (A) 88 %; Platelet Count 606 k/uL (150-450); RBC 4.95 m/uL (3.80-5.40); RDW 14.9 % (11.5-15.5); WBC 17.2 k/uL (3.8-10.6)
[2019-04-02] MEDS: INSULIN ASPART (NovoLOG) 100 UNIT/ML VIAL SQ SCH ×4 (09:35→21:42)
[2019-04-02] MEDS: AZITHROMYCIN 500 MG TAB PO SCH (09:36)
[2019-04-02] MEDS: MORPHINE SULFATE ER 15 MG TABLET PO SCH ×2 (09:37→21:36)
[2019-04-02] MEDS: MORPHINE SULFATE ER 30 MG TABLET PO SCH ×2 (09:37→21:37)
[2019-04-02] MEDS: GABAPENTIN 400 MG CAP PO SCH ×3 (09:37→21:38)
[2019-04-02] MEDS: PANTOPRAZOLE 40 MG TABLET PO SCH (09:38)
[2019-04-02] MEDS: buPROPion SR 150 MG TABLET.ER PO SCH (09:38)
[2019-04-02] MEDS: ENOXAPARIN 40 MG/0.4 ML SYRINGE SQ SCH (09:38)
[2019-04-02] MEDS: FUROSEMIDE 20 MG TAB PO SCH (09:38)
[2019-04-02 09:59] VITALS: BMI 37.1
--- NOTE | 2019-04-02 10:12 | XR ---
EXAMINATION TYPE: XR chest 2V DATE OF EXAM: 04/02/2019 COMPARISON: 10/15/2017 INDICATION: Pneumonia TECHNIQUE: Frontal and lateral views of the chest are obtained. FINDINGS: The heart size is normal. The pulmonary vasculature is prominent. There is diffuse increased lung markings bilaterally. Early pulmonary edema should be considered.. IMPRESSION: 1. Diffuse increased lung markings with some prominence of pulmonary vascular markings. Correlate for pulmonary edema. Follow-up is recommended.
[2019-04-02 11:11] LABS: Glucose,Whole Blood 161 mg/dL (75-99)
--- NOTE | 2019-04-02 11:30 | CDI ---
Documentation Clarification Form Date: 04/02/2019 11:03:38 AM From: Stephani Duff RN CCDS Admit Date: 04/01/2019 1:15:00 PM Patient Name: Karlos Rojo Visit Number: [id number] Discharge Date: ATTENTION: The Clinical Documentation Specialists (CDI) and [facility] Coding Staff appreciate your assistance in clarifying documentation. Please respond to the clarification below the line at the bottom and electronically sign. The CDI & [facility] Coding staff will review the response and follow-up if needed. Please note: Queries are made part of the Legal Health Record. If you have any questions, please contact the author of this message via ITS. Dr. Richy Palomino Chronic pain syndrome Continue home narcotics> is documented in the H & P Patient history/risk factors: 49 year old female with a medical history of Fibromyalgia, MS, presents to the ED with progressive cough and shortness of breath for ten days Vital Signs: 103/56 123 99.2 26 92% ra Other Clinical Indicators: Treatment: Home Meds MS Contin 30mg po q 12 hours, Percocet 10-325 mg 1 tab po TID, Medication: INpt MS Contin 15mg po q 12 hours, Ms Contin 30mg po Q 12 hours; Percocet 10-325 mg 1 tab po TID In order to capture the severity of condition, if possible and in your professional opinion, please clarify the following: * Chronic Opioid Dependence * Chronic Opioid Use * Unknown * Other, please specify * Unable to determine (Last Revision: May 2017) Chronic opioid dependence MTDD
--- NOTE | 2019-04-02 11:47 | CDI ---
Documentation Clarification Form Date: 04/02/2019 11:30:30 AM From: Stephani Duff RN CCDS Admit Date: 04/01/2019 1:15:00 PM Patient Name: Karlos Rojo Visit Number: [id number] Discharge Date: ATTENTION: The Clinical Documentation Specialists (CDI) and [facility] Coding Staff appreciate your assistance in clarifying documentation. Please respond to the clarification below the line at the bottom and electronically sign. The CDI & [facility] Coding staff will review the response and follow-up if needed. Please note: Queries are made part of the Legal Health Record. If you have any questions, please contact the author of this message via ITS. Dr. Richy Palomino CHF is documented in the past medical history in the H & P History/Risk Factors: 49 year old female presents to the ED with medical history of MS, COPD, Chronic pain, Fibromyalgia, with shortness of breath for 10 days Clinical Indicators: Per the H & P leg edema continue home lasix 20 mg qd VS/Pulse OX: 103/56 123 99.2 26 92% ra Chest X Ray: 04/02 CXR diffuse increased lung markings. Home Meds Lasix 40mg po daily PRN Treatment: Lasix 20mg q day In your professional opinion, can you please clarify the acuity and type of CHF if known? * Chronic Systolic heart Failure * Chronic Diastolic Heart Failure * Chronic Systolic / Diastolic Heart Failure * Congestive Heart Failure Ruled out * Unable to Determine * Other, please specify (Last Revision: November 2017) Unable to determine MTDD
[2019-04-02 17:13] LABS: Glucose,Whole Blood 195 mg/dL (75-99)
[2019-04-02] MEDS: SUMAtriptan SUCCINATE 50 MG TAB PO PRN (17:14)
[2019-04-02 20:23] LABS: Glucose,Whole Blood 290 mg/dL (75-99)
[2019-04-02] MEDS: MECLIZINE 25 MG TAB PO PRN (21:38)
[2019-04-02] MEDS: DULoxetine HCL 60 MG CAPSULE.DR PO SCH (21:38)
[2019-04-02] MEDS: DULoxetine HCL 30 MG CAPSULE.DR PO SCH (21:42)
[2019-04-02] MEDS: MELOXICAM 7.5 MG TAB PO SCH (23:26)
[2019-04-02] MEDS: methylPREDNISolone SOD SUCCI 40 MG/ML 1 ML VIAL IV SCH (23:27)
--- NOTE | 2019-04-02 23:31 | P.PN ---
Subjective Progress Note Date: 04/02/19 Karlos Rojo is a 49 yo F with PMH significant for COPD, multiple sclerosis, chronic pain, fibromyalgia, history of DVT who presented to [facility] ED with 10 day history of progressive cough and shortness of breath. She notes fevers at home the past few days with tmax 102 F. She has been coughing green sputum. Pt has continued to smoke 1/2 PPD. She had not seen anyone about this outpatient and denies sick contacts. In the ED SpO2 90% on RA, WBC 28k, D-dimer elevated. CTA negative for PE but did show diffuse bilateral infiltrate. 04/02. She feels her breathing is a bit better than yesterday. Her WBC are down to 17k. No fevers, chills. Objective - Vital Signs Vital signs: Vital Signs Temp 98.2 F 04/02/19 20:51 Pulse 53 L 04/02/19 20:51 Resp 18 04/02/19 20:51 BP 104/60 04/02/19 20:51 Pulse Ox 95 04/02/19 20:51 Intake & Output 04/02/19 04/02/19 04/03/19 06:59 18:59 06:59 Intake Total 1310 400 Balance 1310 400 Weight 104.326 kg Intake: Oral 1310 400 Other: # Voids 2 2 - Exam Gen: well nourished, NAD CV: RRR, no murmur Lungs: wheezing, poor air entry throughout Skin: flushed - Labs CBC & Chem 7: 04/02/19 08:31 04/01/19 10:05 Labs: Abnormal Lab Results - Last 24 Hours (Table) 04/02/19 04/02/19 04/02/19 Range/Units 07:00 08:31 11:10 WBC 17.2 H (3.8-10.6) k/uL Plt Count 606 H (150-450) k/uL Neutrophils # 15.2 H (1.3-7.7) k/uL POC Glucose (mg/dL) 237 H 161 H (75-99) mg/dL 04/02/19 04/02/19 Range/Units 17:11 20:22 WBC (3.8-10.6) k/uL Plt Count (150-450) k/uL Neutrophils # (1.3-7.7) k/uL POC Glucose (mg/dL) 195 H 290 H (75-99) mg/dL Microbiology - Last 24 Hours (Table) 04/01/19 10:05 Blood Culture - Preliminary Blood No Growth after 24 hours 04/01/19 Unknown Gram Stain - Preliminary Sputum Sputum Culture - Preliminary Assessment and Plan (1) Community acquired bacterial pneumonia Current Visit: Yes Status: Acute Code(s): J15.9 - UNSPECIFIED BACTERIAL PNEUMONIA SNOMED Code(s): 878411016 (2) Multiple sclerosis Current Visit: Yes Status: Acute Code(s): G35 - MULTIPLE SCLEROSIS SNOMED Code(s): 46181957 (3) Chronic pain Current Visit: Yes Status: Acute Code(s): G89.29 - OTHER CHRONIC PAIN SNOMED Code(s): 62414526 (4) Fibromyalgia Current Visit: Yes Status: Acute Code(s): M79.7 - FIBROMYALGIA SNOMED Code(s): 295769072 (5) Acute exacerbation of chronic obstructive airways disease Current Visit: No Status: Acute Code(s): J44.1 - CHRONIC OBSTRUCTIVE PULMONARY DISEASE W (ACUTE) EXACERBATION SNOMED Code(s): 472205730 (6) Movement disorder Current Visit: No Status: Acute Code(s): G25.9 - EXTRAPYRAMIDAL AND MOVEMENT DISORDER, UNSPECIFIED SNOMED Code(s): 29467042 Plan: 1. COPD exacerbation. Secondary to CAP. Rocephin and azithromycin. Reduce solumedrol to q8. Duonebs per RT 2. CAP 3. MS 4. Chronic pain syndrome. Continue home narcotics 5. Fibromyalgia. Continue cymbalta and wellbutrin 6. Leg edema. Continue home lasix 20 mg qd
[2019-04-03] MEDS: oxyCODONE-APAP 10-325MG 1 EACH TAB PO PRN ×2 (06:11→19:45)
[2019-04-03] MEDS: LEVOTHYROXINE 100 MCG TAB PO SCH (06:12)
[2019-04-03 06:52] LABS: Glucose,Whole Blood 234 mg/dL (75-99)
[2019-04-03] MEDS: IPRATROPIUM-ALBUTEROL 3 ML NEB INHALATION PRN ×2 (08:07→11:19)
[2019-04-03] MEDS: INSULIN ASPART (NovoLOG) 100 UNIT/ML VIAL SQ SCH ×4 (08:11→20:55)
[2019-04-03] MEDS: methylPREDNISolone SOD SUCCI 40 MG/ML 1 ML VIAL IV SCH ×2 (08:11→17:39)
[2019-04-03] MEDS: ENOXAPARIN 40 MG/0.4 ML SYRINGE SQ SCH (08:11)
[2019-04-03] MEDS: FUROSEMIDE 20 MG TAB PO SCH (08:12)
[2019-04-03] MEDS: PANTOPRAZOLE 40 MG TABLET PO SCH (08:12)
[2019-04-03] MEDS: MORPHINE SULFATE ER 15 MG TABLET PO SCH ×2 (08:12→20:55)
[2019-04-03] MEDS: GABAPENTIN 400 MG CAP PO SCH ×3 (08:12→22:12)
[2019-04-03] MEDS: MORPHINE SULFATE ER 30 MG TABLET PO SCH ×2 (08:13→20:54)
[2019-04-03] MEDS: buPROPion SR 150 MG TABLET.ER PO SCH (08:14)
[2019-04-03] MEDS: diphenhydrAMINE 25 MG CAP PO PRN ×2 (08:16→17:40)
[2019-04-03] MEDS: tiZANidine 4 MG TAB PO PRN ×3 (08:42→20:53)
[2019-04-03 08:46] LABS: Basophils # (A) 0.1 k/uL (0-0.2); Basophils % (A) 0 %; Eosinophils % (A) 0 %; HCT 40.8 % (34.0-46.0); HGB 12.7 gm/dL (11.4-16.0); Hypochromasia Slight; Lymphocytes # (A) 1.2 k/uL (1.0-4.8); Lymphocytes % (A) 5 %; MCH 25.7 pg (25.0-35.0); MCHC 31.3 g/dL (31.0-37.0); MCV 82.3 fL (80.0-100.0); Mean Platelet Volume 6.8; Monocytes % (A) 4 %; Neutrophils # (A) 24.3 k/uL (1.3-7.7); Neutrophils % (A) 90 %; Platelet Count 638 k/uL (150-450); RBC 4.96 m/uL (3.80-5.40); RDW 14.9 % (11.5-15.5); WBC 26.9 k/uL (3.8-10.6)
[2019-04-03 08:50] LABS: African American GFR (CKD) >90 (>60 ml/min/1.73 sqM); Anion Gap 7 mmol/L; Blood Urea Nitrogen 17 mg/dL (7-17); Calcium 9.2 mg/dL (8.4-10.2); Carbon Dioxide 29 mmol/L (22-30); Chloride 104 mmol/L (98-107); Glucose 225 mg/dL (74-99); Non-African American GFR(CKD) >90 (>60 ml/min/1.73 sqM); Potassium 4.6 mmol/L (3.5-5.1); Sodium 140 mmol/L (137-145)
[2019-04-03 11:25] LABS: Glucose,Whole Blood 204 mg/dL (75-99)
[2019-04-03] MEDS: AZITHROMYCIN 500 MG TAB PO SCH (12:54)
[2019-04-03] MEDS: METHOCARBAMOL 750 MG TAB PO PRN ×2 (12:55→20:53)
[2019-04-03] MEDS: IPRATROPIUM-ALBUTEROL 3 ML NEB INHALATION SCH ×2 (16:09→19:58)
[2019-04-03 16:54] LABS: Glucose,Whole Blood 152 mg/dL (75-99)
--- NOTE | 2019-04-03 17:20 | P.PN ---
Subjective Progress Note Date: 04/03/19 Karlos Rojo is a 49 yo F with PMH significant for COPD, multiple sclerosis, chronic pain, fibromyalgia, history of DVT who presented to [facility] ED with 10 day history of progressive cough and shortness of breath. She notes fevers at home the past few days with tmax 102 F. She has been coughing green sputum. Pt has continued to smoke 1/2 PPD. She had not seen anyone about this outpatient and denies sick contacts. In the ED SpO2 90% on RA, WBC 28k, D-dimer elevated. CTA negative for PE but did show diffuse bilateral infiltrate. 04/02. She feels her breathing is a bit better than yesterday. Her WBC are down to 17k. No fevers, chills. 04/03/2019 reports no change in her breathing. Requiring 3 L nasal cannula to maintain O2 sats in the 90s. Afebrile, WBC up to 26.2, on steroids. Objective - Vital Signs Vital signs: Vital Signs Temp 98.2 F 04/03/19 12:25 Pulse 98 04/03/19 16:30 Resp 22 04/03/19 16:10 BP 108/72 04/03/19 12:25 Pulse Ox 95 04/03/19 16:10 Intake & Output 04/02/19 04/03/19 04/03/19 18:59 06:59 18:59 Intake Total 677 582 1244 Balance 132 014 0925 Weight 104.326 kg Intake: Oral 645 544 0143 Other: Voiding Method Toilet # Voids 2 1 2 - Exam Gen: well nourished, NAD CV: RRR, no murmur Lungs: wheezing, better air entry throughout Skin: flushed - Labs CBC & Chem 7: 04/03/19 07:33 04/03/19 07:33 Labs: Abnormal Lab Results - Last 24 Hours (Table) 04/02/19 04/03/19 04/03/19 Range/Units 20:22 06:51 07:33 WBC 26.9 H (3.8-10.6) k/uL Plt Count 638 H (150-450) k/uL Neutrophils # 24.3 H (1.3-7.7) k/uL Glucose (74-99) mg/dL POC Glucose (mg/dL) 290 H 234 H (75-99) mg/dL 04/03/19 04/03/19 04/03/19 Range/Units 07:33 11:24 16:53 WBC (3.8-10.6) k/uL Plt Count (150-450) k/uL Neutrophils # (1.3-7.7) k/uL Glucose 225 H (74-99) mg/dL POC Glucose (mg/dL) 204 H 152 H (75-99) mg/dL Microbiology - Last 24 Hours (Table) 04/01/19 Unknown Gram Stain - Preliminary Sputum Sputum Culture - Preliminary Keli albicans 04/01/19 10:05 Blood Culture - Preliminary Blood No Growth after 48 hours Assessment and Plan Assessment: (1) Community acquired bacterial pneumonia Current Visit: Yes Status: Acute Code(s): J15.9 - UNSPECIFIED BACTERIAL PNEUMONIA SNOMED Code(s): 967100608 (2) Multiple sclerosis Current Visit: Yes Status: Acute Code(s): G35 - MULTIPLE SCLEROSIS SNOMED Code(s): 24119523 (3) Chronic pain Current Visit: Yes Status: Acute Code(s): G89.29 - OTHER CHRONIC PAIN SNOMED Code(s): 73051800 (4) Fibromyalgia Current Visit: Yes Status: Acute Code(s): M79.7 - FIBROMYALGIA SNOMED Code(s): 250954038 (5) Acute exacerbation of chronic obstructive airways disease Current Visit: No Status: Acute Code(s): J44.1 - CHRONIC OBSTRUCTIVE PULMONARY DISEASE W (ACUTE) EXACERBATION SNOMED Code(s): 829673117 (6) Movement disorder Current Visit: No Status: Acute Code(s): G25.9 - EXTRAPYRAMIDAL AND MOVEMENT DISORDER, UNSPECIFIED SNOMED Code(s): 88484756 (7) ongoing nicotine dependence, Marijuana use Plan: Continue on current medication regime ,monitoring and symptomatic treatment. Flutter valve ordered and discussed with patient at bedside. Pulm onary consulted. Maintain nebulized bronchodilators, IV steroids, Rocephin, Zithromax. Increase ambulation as tolerated. Smoking cessation readdressed The impression and plan of care has been dictated as directed. : I performed a history and examination of this patient, discussed the same with the dictator. I agree with the dictator's note ,documented as a scribe. Any additional findings or plans will be noted.
[2019-04-03] MEDS: NICOTINE 21MG/24HR PATCH TRANSDERM SCH (17:39)
[2019-04-03] MEDS: SYMBICORT 160-4.5 MCG INHALER INHALATION SCH (19:58)
[2019-04-03] MEDS ORDERED: BUDESONIDE 0.5 MG/2 ML NEBU INHALATION SCH (20:00)
[2019-04-03 20:20] LABS: Glucose,Whole Blood 157 mg/dL (75-99)
[2019-04-03] MEDS: MECLIZINE 25 MG TAB PO PRN (20:53)
[2019-04-03] MEDS: SUMAtriptan SUCCINATE 50 MG TAB PO PRN (20:53)
[2019-04-03] MEDS: MELOXICAM 7.5 MG TAB PO SCH (20:54)
[2019-04-03] MEDS: DULoxetine HCL 30 MG CAPSULE.DR PO SCH (20:55)
[2019-04-03] MEDS: DULoxetine HCL 60 MG CAPSULE.DR PO SCH (20:55)
[2019-04-04] MEDS: diphenhydrAMINE 25 MG CAP PO PRN ×3 (00:33→16:24)
[2019-04-04] MEDS: methylPREDNISolone SOD SUCCI 40 MG/ML 1 ML VIAL IV SCH ×3 (00:33→16:24)
[2019-04-04] MEDS: oxyCODONE-APAP 10-325MG 1 EACH TAB PO PRN ×3 (03:30→23:02)
[2019-04-04] MEDS: LEVOTHYROXINE 100 MCG TAB PO SCH (05:55)
[2019-04-04 06:57] LABS: Glucose,Whole Blood 172 mg/dL (75-99)
[2019-04-04 08:03] LABS: Basophils # (A) 0.1 k/uL (0-0.2); Basophils % (A) 0 %; Eosinophils % (A) 0 %; HCT 41.7 % (34.0-46.0); Hypochromasia Slight; Lymphocytes # (A) 1.5 k/uL (1.0-4.8); Lymphocytes % (A) 5 %; MCH 25.5 pg (25.0-35.0); MCHC 31.2 g/dL (31.0-37.0); MCV 81.9 fL (80.0-100.0); Mean Platelet Volume 6.7; Monocytes # (A) 0.9 k/uL (0-1.0); Monocytes % (A) 3 %; Neutrophils # (A) 24.9 k/uL (1.3-7.7); Neutrophils % (A) 90 %; Platelet Count 585 k/uL (150-450); RBC 5.09 m/uL (3.80-5.40); WBC 27.6 k/uL (3.8-10.6)
[2019-04-04] MEDS: FUROSEMIDE 20 MG TAB PO SCH (08:30)
[2019-04-04] MEDS: GABAPENTIN 400 MG CAP PO SCH ×3 (08:30→21:30)
[2019-04-04] MEDS: PANTOPRAZOLE 40 MG TABLET PO SCH (08:30)
[2019-04-04] MEDS: MORPHINE SULFATE ER 30 MG TABLET PO SCH ×2 (08:31→21:30)
[2019-04-04] MEDS: buPROPion SR 150 MG TABLET.ER PO SCH (08:32)
[2019-04-04] MEDS: ENOXAPARIN 40 MG/0.4 ML SYRINGE SQ SCH (08:32)
[2019-04-04] MEDS: NICOTINE 21MG/24HR PATCH TRANSDERM SCH (08:32)
[2019-04-04] MEDS: MORPHINE SULFATE ER 15 MG TABLET PO SCH ×2 (08:32→21:29)
[2019-04-04] MEDS: INSULIN ASPART (NovoLOG) 100 UNIT/ML VIAL SQ SCH ×4 (08:33→21:28)
[2019-04-04] MEDS: IPRATROPIUM-ALBUTEROL 3 ML NEB INHALATION SCH ×4 (09:01→20:06)
[2019-04-04] MEDS: SYMBICORT 160-4.5 MCG INHALER INHALATION SCH ×2 (09:02→20:06)
[2019-04-04] MEDS: METHOCARBAMOL 750 MG TAB PO PRN ×2 (09:26→17:59)
--- NOTE | 2019-04-04 10:23 | P.PN ---
Subjective Progress Note Date: 04/04/19 Karlos Rojo is a 49 yo F with PMH significant for COPD, multiple sclerosis, chronic pain, fibromyalgia, history of DVT who presented to [facility] ED with 10 day history of progressive cough and shortness of breath. She notes fevers at home the past few days with tmax 102 F. She has been coughing green sputum. Pt has continued to smoke 1/2 PPD. She had not seen anyone about this outpatient and denies sick contacts. In the ED SpO2 90% on RA, WBC 28k, D-dimer elevated. CTA negative for PE but did show diffuse bilateral infiltrate. 04/02. She feels her breathing is a bit better than yesterday. Her WBC are down to 17k. No fevers, chills. 04/03/2019 reports no change in her breathing. Requiring 3 L nasal cannula to maintain O2 sats in the 90s. Afebrile, WBC up to 26.2, on steroids. 04/14/2019 reports feeling much better.breathing significantly improved. 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 Afebrile. WBC 27.6. Blood sugars stable. Objective - Vital Signs Vital signs: Vital Signs Temp 98.4 F 04/04/19 04:50 Pulse 77 04/04/19 09:17 Resp 22 04/04/19 04:50 BP 112/71 04/04/19 04:50 Pulse Ox 97 04/04/19 09:02 Intake & Output 04/03/19 04/04/19 04/04/19 18:59 06:59 18:59 Intake Total 1200 Balance 1200 Intake: Oral 1200 Other: Voiding Method Toilet # Voids 2 2 - Exam Gen: well nourished, NAD CV: RRR, no murmur Lungs: Improved air entry throughout, faint expiratory wheeze bilateral Skin: less flushed - Labs CBC & Chem 7: 04/04/19 07:05 04/03/19 07:33 Labs: Abnormal Lab Results - Last 24 Hours (Table) 04/03/19 04/03/19 04/03/19 Range/Units 11:24 16:53 20:18 WBC (3.8-10.6) k/uL Plt Count (150-450) k/uL Neutrophils # (1.3-7.7) k/uL POC Glucose (mg/dL) 204 H 152 H 157 H (75-99) mg/dL 04/04/19 04/04/19 Range/Units 06:55 07:05 WBC 27.6 H (3.8-10.6) k/uL Plt Count 585 H (150-450) k/uL Neutrophils # 24.9 H (1.3-7.7) k/uL POC Glucose (mg/dL) 172 H (75-99) mg/dL Microbiology - Last 24 Hours (Table) 04/01/19 Unknown Gram Stain - Final Sputum Sputum Culture - Final Keli albicans 04/01/19 10:05 Blood Culture - Preliminary Blood No Growth after 48 hours Assessment and Plan Assessment: (1) Community acquired bacterial pneumonia Current Visit: Yes Status: Acute Code(s): J15.9 - UNSPECIFIED BACTERIAL PNEUMONIA SNOMED Code(s): 307542495 (2) Multiple sclerosis Current Visit: Yes Status: Acute Code(s): G35 - MULTIPLE SCLEROSIS SNOMED Code(s): 86012622 (3) Chronic pain Current Visit: Yes Status: Acute Code(s): G89.29 - OTHER CHRONIC PAIN SNOMED Code(s): 67204232 (4) Fibromyalgia Current Visit: Yes Status: Acute Code(s): M79.7 - FIBROMYALGIA SNOMED Code(s): 135674806 (5) Acute exacerbation of chronic obstructive airways disease Current Visit: No Status: Acute Code(s): J44.1 - CHRONIC OBSTRUCTIVE PULMONARY DISEASE W (ACUTE) EXACERBATION SNOMED Code(s): 092900252 (6) Movement disorder Current Visit: No Status: Acute Code(s): G25.9 - EXTRAPYRAMIDAL AND MOVEMENT DISORDER, UNSPECIFIED SNOMED Code(s): 96006756 (7) ongoing nicotine dependence, Marijuana use Plan: Continue on current medication regime ,monitoring and symptomatic treatment. Pulmonary consult adjusted, patient follows with Thomas Moreno. Continue nebulized bronchodilators, IV steroids, Rocephin, Zithromax, and flutter valve. Increase ambulation as tolerated. Smoking cessation readdressed. Discharge planning in progress for tomorrow, pending pulmonary clearance. The impression and plan of care has been dictated as directed. : I performed a history and examination of this patient, discussed the same with the dictator. I agree with the dictator's note ,documented as a scribe. Any additional findings or plans will be noted.
[2019-04-04 11:06] LABS: Glucose,Whole Blood 185 mg/dL (75-99)
[2019-04-04 12:43] VITALS: RESP 20
[2019-04-04] MEDS: AZITHROMYCIN 500 MG TAB PO SCH (14:21)
--- NOTE | 2019-04-04 15:26 | P.CNPUL ---
History of Present Illness Consult date: 04/04/19 Reason for consult: dyspnea, cough, asthma Chief complaint: COPD History of present illness: This is a 49-year-old female with prior medical history significant for severe COPD she has problems 0 chronic asthmatic bronchitis as well along with history of multiple sclerosis fibromyalgia history of DVT patient presented on the April 01 with 1 week history of increased cuff congestion and greenish sputum production she spiked a fever up to 102 and was admitted into hospital patient continued to require oxygen in the beginning however sats have improved, patient has been off of oxygen now, her CT suggested the soft tissue density in the suprahilar region with a differential diagnoses of the lymph node along with a m idlung field infiltrate bilaterally more so on the right side compared to left side with a differential diagnosis of sarcoidosis, some early developing bronchiectasis noted in the upper lobes as well, currently on the right side her chest x-ray continue show prominent pulmonary markings, patient is being treated with bronchodilator along with broad-spectrum antibiotics with Rocephin and Zithromax and IV steroids, as per discussion with the patient she is been followed up by Dr. FELIPA benito, she has a stable ongoing wheezing, none on the old x-rays or computed tomography scan of the chest are available I have looked the records still August 2018 at [facility] Review of Systems All systems: negative Past Medical History Past Medical History: Asthma, Blood Disorder, Heart Failure, COPD, Deep Vein Thrombosis (DVT), Eye Disorder, Fibromyalgia, Hearing Disorder / Deafness, Hyperlipidemia, Memory Impairment, Musculoskeletal Disorder, Neurologic Disorder, Osteoarthritis (OA), Pneumonia, Skin Disorder, Sleep Apnea/CPAP/BIPAP, Syncope, Thyroid Disorder Additional Past Medical History / Comment(s): Multiple sclerosis, bronchitis, factor 5 leiden, RUBI-does not wear device, DVT L leg about 2013, hiatal hernia, hoarseness/leucoplasia, adrenal insufficiency/chronic steroid use, migraines, DJD, chronic back pain, bursitis, optic neuritis bilaterally, glaucoma bilateral, bilateral tinnitis, UTI, rosacia, sinus problems, insomnia, hypersomnia. History of Any Multi-Drug Resistant Organisms: None Reported Date of last positivie culture/infection: 2013 MDRO Source:: stomach Past Surgical History: Bladder Surgery, Section, Cholecystectomy, Tubal Ligation Additional Past Surgical History / Comment(s): 09-24-18 bladder stimulator, 02/05/19 microlarygoscopy/bx, vocal cord polypectomies, cervical bx, bladder suspension, EGD with bx, colonoscopy Past Anesthesia/Blood Transfusion Reactions: Motion Sickness Smoking Status: Current every day smoker - Past Family History Brother(s) Family Medical History: Deep Vein Thrombosis (DVT) Father Family Medical History: Deep Vein Thrombosis (DVT) Additional Family Medical History / Comment(s): Patient states that her father has no cardiac history but his father had previous MA's. Mother Family Medical History: Cancer, Deep Vein Thrombosis (DVT), Pulmonary Embolus Additional Family Medical History / Comment(s): Cervical cancer. Medications and Allergies Home Medications Medication Instructions Recorded Confirmed Type EPINEPHrine (Auto Inject) [Epipen] 0.3 mg IM ONCE PRN 10/06/15 04/01/19 History Ergocalciferol [Vitamin D2 50,000 unit PO TH 01/26/16 04/01/19 History (DRISDOL)] Gabapentin 800 mg PO TID 08/13/16 04/01/19 History LORazepam [Ativan] 1 mg PO TID PRN 05/21/17 04/01/19 History Meclizine [Antivert] 12.5 mg PO Q12H PRN 05/21/17 04/01/19 History Meloxicam [Mobic] 15 mg PO HS 05/21/17 04/01/19 History tiZANidine [Zanaflex] 4 mg PO TID 05/21/17 04/01/19 History Zonisamide [Zonegran] 100 - 200 mg PO HS PRN 10/15/17 04/01/19 History Methocarbamol [Robaxin] 750 mg PO TID 09/12/18 04/01/19 History Furosemide [Lasix] 40 mg PO DAILY PRN 09/30/18 04/01/19 History Potassium Chloride [Klor-Con 20] 20 meq PO DAILY PRN 09/30/18 04/01/19 History DULoxetine HCL [Cymbalta] 30 mg PO HS 11/13/18 04/01/19 History Dextroamphetamine/Amphetamine 30 mg PO BID 11/13/18 04/01/19 History [Adderall] Ondansetron HCl [Zofran] 8 mg PO TID PRN 11/13/18 04/01/19 History oxyCODONE HCL/ACETAMINOPHEN 1 tab PO TID PRN 11/13/18 04/01/19 History [Percocet 10-325 mg] Levothyroxine Sodium [Synthroid] 100 mcg PO QAM 02/04/19 04/01/19 History buPROPion HCL [Wellbutrin SR] 150 mg PO BID 02/04/19 04/01/19 History DULoxetine HCL [Cymbalta] 60 mg PO HS 04/01/19 04/01/19 History Hydrocortisone [Cortef] 10 mg PO HS 04/01/19 04/01/19 History Hydrocortisone [Cortef] 30 mg PO DAILY 04/01/19 04/01/19 History Ketorolac [Toradol] 10 mg PO TID 04/01/19 04/01/19 History Morphine Sulfate ER [Ms Contin] 30 mg PO Q12HR 04/01/19 04/01/19 History Omeprazole 40 mg PO DAILY 04/01/19 04/01/19 History Rizatriptan Odt [Maxalt ROUGH PATCHER] 5 mg PO BID PRN 04/01/19 04/01/19 History Allergies Allergy/AdvReac Type Severity Reaction Status Date / Time sulfamethoxazole Allergy See Comment Verified 04/01/19 11:15 [From Bactrim] trimethoprim [From Bactrim] Allergy See Comment Verified 04/01/19 11:15 doxycycline AdvReac Rash/Hives Verified 04/01/19 11:15 glatiramer (copolymer 1) AdvReac Rapid Verified 04/01/19 11:15 [From Copaxone] Heart Rate,hives steroids AdvReac Unknown Uncoded 04/01/19 09:50 Physical Exam Vitals: Vital Signs Temp Pulse Pulse Resp BP Pulse Ox 04/04/19 12:26 77 04/04/19 12:03 79 04/04/19 11:38 98.1 F 73 20 127/74 96 04/04/19 09:17 77 04/04/19 09:02 79 97 04/04/19 04:50 98.4 F 62 22 112/71 96 04/03/19 20:27 78 04/03/19 19:58 64 04/03/19 19:20 98.4 F 62 22 112/71 96 04/03/19 16:30 68 04/03/19 16:10 72 22 95 Intake and Output 04/04/19 04/04/19 04/04/19 06:59 14:59 22:59 Other: Voiding Method Toilet Toilet # Voids 2 - Constitutional General appearance: disheveled, mild distress, morbidly obese - EENT Eyes: anicteric sclerae, EOMI, PERRLA Ears: bilateral: normal - Neck Neck: lymphadenopathy, normal ROM - Respiratory Respiratory: bilateral: diminished, rhonchi, wheezing, prolonged expiration, negative: CTA, dullness, rales - Cardiovascular Rhythm: regular Heart sounds: normal: S1, S2 - Gastrointestinal General gastrointestinal: distended, normal bowel sounds, soft - Integumentary Integumentary: normal turgor - Neurologic Neurologic: CNII-XII intact - Musculoskeletal Musculoskeletal: gait normal, generalized weakness, strength equal bilaterally - Psychiatric Psychiatric: A&O x's 3, appropriate affect, intact judgment & insight Results - Laboratory Findings CBC and BMP: 04/04/19 07:05 04/03/19 07:33 PT/INR, D-dimer PT 9.9 sec (9.0-12.0) 04/01/19 10:05 INR 0.9 (<1.2) 04/01/19 10:05 D-Dimer 1.18 mg/L FEU (<0.60) H 04/01/19 10:05 Abnormal lab findings: Abnormal Labs 04/01/19 04/01/19 04/01/19 10:05 10:05 10:05 WBC 28.0 H Plt Count 572 H Neutrophils # 23.9 H D-Dimer 1.18 H Glucose 161 H POC Glucose (mg/dL) AST 13 L Alkaline Phosphatase 136 H Total Protein 6.2 L 04/01/19 04/01/19 04/02/19 17:20 20:28 07:00 WBC Plt Count Neutrophils # D-Dimer Glucose POC Glucose (mg/dL) 109 H 162 H 237 H AST Alkaline Phosphatase Total Protein 04/02/19 04/02/19 04/02/19 08:31 11:10 17:11 WBC 17.2 H Plt Count 606 H Neutrophils # 15.2 H D-Dimer Glucose POC Glucose (mg/dL) 161 H 195 H AST Alkaline Phosphatase Total Protein 04/02/19 04/03/19 04/03/19 20:22 06:51 07:33 WBC 26.9 H Plt Count 638 H Neutrophils # 24.3 H D-Dimer Glucose POC Glucose (mg/dL) 290 H 234 H AST Alkaline Phosphatase Total Protein 04/03/19 04/03/19 04/03/19 07:33 11:24 16:53 WBC Plt Count Neutrophils # D-Dimer Glucose 225 H POC Glucose (mg/dL) 204 H 152 H AST Alkaline Phosphatase Total Protein 04/03/19 04/04/19 04/04/19 20:18 06:55 07:05 WBC 27.6 H Plt Count 585 H Neutrophils # 24.9 H D-Dimer Glucose POC Glucose (mg/dL) 157 H 172 H AST Alkaline Phosphatase Total Protein 04/04/19 11:04 WBC Plt Count Neutrophils # D-Dimer Glucose POC Glucose (mg/dL) 185 H AST Alkaline Phosphatase Total Protein - Diagnostic Findings Chest x-ray: report reviewed, image reviewed CT scan - chest: report reviewed, image reviewed (Finding as noted above) Assessment and Plan Assessment: Bilateral pneumonia Bilateral radicular nodular infiltrate with a differential diagnosis of sarcoidosis Hilar adenopathy Morbid obesity Obstructive sleep apnea Leukocytosis Multiple sclerosis Fibromyalgia COPD Chronic movement disorder Smoker and marijuana use Plan: Continue IV steroids Antibiotics Supplemental oxygen as needed Increase activity as tolerated Patient probably needs a bronchoscopy and lung biopsy once stable as outpatient Further recommendations pending plan of care as per clinical response of patient Time with Patient: Greater than 30
[2019-04-04] MEDS: tiZANidine 4 MG TAB PO PRN ×2 (16:24→23:02)
[2019-04-04 17:43] LABS: Glucose,Whole Blood 216 mg/dL (75-99)
[2019-04-04 20:42] LABS: Glucose,Whole Blood 128 mg/dL (75-99)
[2019-04-04] MEDS: DULoxetine HCL 30 MG CAPSULE.DR PO SCH (21:27)
[2019-04-04] MEDS: DULoxetine HCL 60 MG CAPSULE.DR PO SCH (21:27)
[2019-04-04] MEDS: MELOXICAM 7.5 MG TAB PO SCH (21:28)
[2019-04-04] MEDS: MECLIZINE 25 MG TAB PO PRN (23:02)
[2019-04-04] MEDS: SUMAtriptan SUCCINATE 50 MG TAB PO PRN (23:19)
[2019-04-05] MEDS: methylPREDNISolone SOD SUCCI 40 MG/ML 1 ML VIAL IV SCH ×2 (00:10→07:42)
[2019-04-05] MEDS: diphenhydrAMINE 25 MG CAP PO PRN ×2 (00:10→07:43)
[2019-04-05 04:32] VITALS: BP 148/75; TEMP 98
[2019-04-05] MEDS: LEVOTHYROXINE 100 MCG TAB PO SCH (06:11)
[2019-04-05 07:05] LABS: Glucose,Whole Blood 155 mg/dL (75-99)
[2019-04-05] MEDS: SYMBICORT 160-4.5 MCG INHALER INHALATION SCH (07:15)
[2019-04-05] MEDS: IPRATROPIUM-ALBUTEROL 3 ML NEB INHALATION SCH ×2 (07:16→11:21)
[2019-04-05 07:40] LABS: Basophils # (A) 0.1 k/uL (0-0.2); Basophils % (A) 0 %; Eosinophils % (A) 0 %; HCT 43.9 % (34.0-46.0); HGB 13.6 gm/dL (11.4-16.0); Hypochromasia Slight; Lymphocytes # (A) 1.2 k/uL (1.0-4.8); Lymphocytes % (A) 5 %; MCH 25.4 pg (25.0-35.0); MCHC 31.1 g/dL (31.0-37.0); MCV 81.7 fL (80.0-100.0); Mean Platelet Volume 6.5; Monocytes % (A) 4 %; Neutrophils # (A) 23.3 k/uL (1.3-7.7); Neutrophils % (A) 90 %; Platelet Count 583 k/uL (150-450); RBC 5.37 m/uL (3.80-5.40); WBC 25.8 k/uL (3.8-10.6)
[2019-04-05] MEDS: ENOXAPARIN 40 MG/0.4 ML SYRINGE SQ SCH (07:42)
[2019-04-05] MEDS: NICOTINE 21MG/24HR PATCH TRANSDERM SCH (07:42)
[2019-04-05] MEDS: GABAPENTIN 400 MG CAP PO SCH (07:43)
[2019-04-05] MEDS: PANTOPRAZOLE 40 MG TABLET PO SCH (07:43)
[2019-04-05] MEDS: FUROSEMIDE 20 MG TAB PO SCH (07:43)
[2019-04-05] MEDS: MORPHINE SULFATE ER 15 MG TABLET PO SCH (07:44)
[2019-04-05] MEDS: MORPHINE SULFATE ER 30 MG TABLET PO SCH (07:44)
[2019-04-05] MEDS: buPROPion SR 150 MG TABLET.ER PO SCH (07:45)
[2019-04-05] MEDS: INSULIN ASPART (NovoLOG) 100 UNIT/ML VIAL SQ SCH ×2 (07:46→12:41)
[2019-04-05 07:51] LABS: African American GFR (CKD) >90 (>60 ml/min/1.73 sqM); Anion Gap 9 mmol/L; Blood Urea Nitrogen 26 mg/dL (7-17); Carbon Dioxide 32 mmol/L (22-30); Chloride 99 mmol/L (98-107); Glucose 145 mg/dL (74-99); Non-African American GFR(CKD) >90 (>60 ml/min/1.73 sqM); Potassium 4.6 mmol/L (3.5-5.1); Sodium 140 mmol/L (137-145)
[2019-04-05] MEDS: oxyCODONE-APAP 10-325MG 1 EACH TAB PO PRN (07:53)
[2019-04-05 11:33] LABS: Glucose,Whole Blood 136 mg/dL (75-99)
[2019-04-05 11:36] VITALS: PULSE 68
--- NOTE | 2019-04-05 11:39 | P.PN ---
Subjective Progress Note Date: 04/05/19 Principal diagnosis: Bilateral pneumonia Bilateral radicular nodular infiltrate with a differential diagnosis of sarcoidosis Hilar adenopathy Morbid obesity Obstructive sleep apnea Leukocytosis Multiple sclerosis Fibromyalgia COPD Chronic movement disorder Smoker and marijuana use 04/05/2019, patient seen eval examined during the rounds labs reviewed medications reviewed findings on the CT chest discussed with patient at length, patient is feeling better she is off of oxygen ambulating denies any chest pain shortness of breath or cough she wants to go home she wants to see Dr. FELIPA benito about radicular nodular infiltrate seen on the CAT scan and if biopsy is needed for that, can be discharged from pulmonary standpoint on oral tapering steroids and antibiotics prescription provided This is a 49-year-old female with prior medical history significant for severe COPD she has problems 0 chronic asthmatic bronchitis as well along with history of multiple sclerosis fibromyalgia history of DVT patient presented on the April 01 with 1 week history of increased cuff congestion and greenish sputum production she spiked a fever up to 102 and was admitted into hospital patient continued to require oxygen in the beginning however sats have improved, patient has been off of oxygen now, her CT suggested the soft tissue density in the suprahilar region with a differential diagnoses of the lymph node along with a midlung field infiltrate bilaterally more so on the right side compared to left side with a differential diagnosis of sarcoidosis, some early developing bronchiectasis noted in the upper lobes as well, currently on the right side her chest x-ray continue show prominent pulmonary markings, patient is being treated with bronchodilator along with broad-spectrum antibiotics with Rocephin and Zithromax and IV steroids, as per discussion with the patient she is been followed up by Dr. FELIPA benito, she has a stable ongoing wheezing, none on the old x-rays or computed tomography scan of the chest are available I have looked the records still August 2018 at [facility] Objective - Vital Signs Vital signs: Vital Signs Temp 98.0 F 04/05/19 04:31 Pulse 72 04/05/19 11:21 Resp 20 04/05/19 04:31 BP 148/75 04/05/19 04:31 Pulse Ox 96 04/05/19 04:31 Intake & Output 04/04/19 04/05/19 04/05/19 18:59 06:59 18:59 Other: Voiding Method Toilet Toilet Toilet # Voids 3 1 # Bowel Movements 1 - Exam - Constitutional General appearance: disheveled, mild distress, morbidly obese - EENT Eyes: anicteric sclerae, EOMI, PERRLA Ears: bilateral: normal - Neck Neck: lymphadenopathy, normal ROM - Respiratory Respiratory: bilateral: diminished, rhonchi, wheezing, prolonged expiration, negative: CTA, dullness, rales - Cardiovascular Rhythm: regular Heart sounds: normal: S1, S2 - Gastrointestinal General gastrointestinal: distended, normal bowel sounds, soft - Integumentary Integumentary: normal turgor - Neurologic Neurologic: CNII-XII intact - Musculoskeletal Musculoskeletal: gait normal, generalized weakness, strength equal bilaterally - Psychiatric Psychiatric: A&O x's 3, appropriate affect, intact judgment & insight - Labs CBC & Chem 7: 04/05/19 06:52 04/05/19 06:52 Labs: Abnormal Lab Results - Last 24 Hours (Table) 04/04/19 04/04/19 04/05/19 Range/Units 17:38 20:40 06:52 WBC 25.8 H (3.8-10.6) k/uL Plt Count 583 H (150-450) k/uL Neutrophils # 23.3 H (1.3-7.7) k/uL Carbon Dioxide (22-30) mmol/L BUN (7-17) mg/dL Glucose (74-99) mg/dL POC Glucose (mg/dL) 216 H 128 H (75-99) mg/dL 04/05/19 04/05/19 Range/Units 06:52 07:02 WBC (3.8-10.6) k/uL Plt Count (150-450) k/uL Neutrophils # (1.3-7.7) k/uL Carbon Dioxide 32 H (22-30) mmol/L BUN 26 H (7-17) mg/dL Glucose 145 H (74-99) mg/dL POC Glucose (mg/dL) 155 H (75-99) mg/dL Microbiology - Last 24 Hours (Table) 04/01/19 10:05 Blood Culture - Preliminary Blood No Growth after 72 hours 04/01/19 Unknown Gram Stain - Final Sputum Sputum Culture - Final Keli albicans Assessment and Plan Assessment: Bilateral pneumonia Bilateral radicular nodular infiltrate with a differential diagnosis of sarcoidosis Hilar adenopathy Morbid obesity Obstructive sleep apnea Leukocytosis Multiple sclerosis Fibromyalgia COPD Chronic movement disorder Smoker and marijuana use Plan: Continue oral steroids Antibiotics Supplemental oxygen as needed Increase activity as tolerated Patient probably needs a bronchoscopy and lung biopsy once stable as outpatient, discussed with the patient as planned she will see Dr. Moreno as outpatient and proceed from there point onwards Further recommendations pending plan of care as per clinical response of patient Time with Patient: Greater than 30
[2019-04-05] MEDS: AZITHROMYCIN 500 MG TAB PO SCH (13:04)
[2019-04-05] MEDS: METHOCARBAMOL 750 MG TAB PO PRN (13:04)
--- NOTE | 2019-04-06 01:53 | DS ---
DISCHARGE SUMMARY DATE OF SERVICE: 04/05/2019. FINAL DIAGNOSES: 1. Community-acquired pneumonia. 2. Multiple sclerosis. 3. Chronic pain syndrome. 4. Fibromyalgia. 5. Chronic obstructive pulmonary disease acute exacerbation. 6. Movement disorder. DISCHARGE DISPOSITION: The patient will be discharged in stable condition with guarded prognosis. HISTORY OF PRESENT ILLNESS: This 49-year-old woman with a past medical history of multiple medical problems was admitted with COPD acute exacerbation and pneumonia. Patient treated in conjunction with Dr. Russo. Dr. Palomino saw the patient. Patient improved significantly. Dr. Russo cleared the patient for discharge. The patient will be discharged in stable condition with guarded prognosis. On exam, vitals signs are stable. Cardiovascular: S1, S2 normal. Respirations: A few scattered rhonchi. Abdomen soft. Nervous system: No focal deficits. DISCHARGE ADVICE AND MEDICATIONS: 1. Diet is cardiac diet. 2. Activity limited until followup. 3. Follow up with Dr. Russo as recommended. 4. Follow up with Dr. Jannette Palomino in 1-2 days. MEDICATIONS: As follows: 1. Adderall 30 mg p.o. b.i.d. 2. Antivert 12.5 mg b.i.d. p.r.n. 3. Ativan 1 mg t.i.d. p.r.n. 4. Cortef 30 mg p.o. daily. 5. Cortef 30 mg daily and 10 mg p.o. q.h.s. 6. Cymbalta 90 mg q.h.s. 7. EpiPen p.r.n. 8. Gabapentin 800 mg p.o. t.i.d. 9. Klor-Con 20 mg p.o. daily p.r.n. 10.Lasix 40 mg daily p.r.n. 11.Maxalt 5 mg p.o. b.i.d. p.r.n. 12.Mobic 15 mg q.h.s. 13.MS Contin 30 mg p.o. b.i.d. 14.Omeprazole 40 mg p.o. daily. 15.Robaxin 750 mg p.o. t.i.d. 16.Synthroid 100 mg p.o. q.a.m. 17.Toradol 10 mg p.o. t.i.d. 18.Drisdol 86384 p.o. . 19.Wellbutrin SR 150 mg p.o. b.i.d. 20.Zanaflex 4 mg p.o. t.i.d. 21.Zofran 8 mg p.o. t.i.d. p.r.n. 22.Zonegran p.r.n. 23.DuoNeb q.i.d. 24.Percocet 10 mg t.i.d. p.r.n. 25.Symbicort 160/4.5 two puffs b.i.d. Follow up with as recommended. MMODL / IJN: [id number] / AGATA
--- NOTE | 2019-04-08 01:28 | CDI ---
Documentation Clarification Form Date: 04/08/19 From: Shiv Moreno Phone: call to [phone] Admit Date: 04/01/2019 1:15:00 PM Patient Name: Karlos Rojo Visit Number: [id number] Discharge Date: 04/05/2019 2:55:00 PM ATTENTION: The Clinical Documentation Specialists (CDI) and [facility] Coding Staff appreciate your assistance in clarifying documentation. Please respond to the clarification below the line at the bottom and electronically sign. The CDI & [facility] Coding staff will review the response and follow-up if needed. Please note: Queries are made part of the Legal Health Record. If you have any questions, please contact the author of this message via ITS. Dr. Guerrero Dutta, Pneumonia was documented in your notes as Community Aquired Pneumonia. History/Risk Factors: COPD WBC/Left shift: 28.0 X-ray: Increased infiltrates Treatment: Antibiotics Antibiotics : Rocephin, Zithromax., "Sputum Culture : CARLOS ALBICANS" In order to capture the severity of condition, please clarify if the condition signifies and you are treating for: Candidal Pneumonia, Other, please specify Unable to determine Unable to determine MTDD
== END 2019-04-05 14:55 | disposition home or self-care (01) | DRG 190 ==
LOC: EC 09:45 → 3NMEDONC 13:15
PROVIDERS: ADMIT Family Medicine; ATTEND Family Medicine
DX: J44.1 Chronic obstructive pulmonary disease with (acute) exacerbation (principal); J15.9 Unspecified bacterial pneumonia; F11.20 Opioid dependence, uncomplicated; D68.51 Activated protein C resistance; G25.9 Extrapyramidal and movement disorder, unspecified; J44.0 Chronic obstructive pulmonary disease with (acute) lower respiratory infection; G35 Multiple sclerosis; M79.7 Fibromyalgia; F17.210 Nicotine dependence, cigarettes, uncomplicated; F12.90 Cannabis use, unspecified, uncomplicated; E66.01 Morbid (severe) obesity due to excess calories; G47.33 Obstructive sleep apnea (adult) (pediatric); E78.5 Hyperlipidemia, unspecified; F90.9 Attention-deficit hyperactivity disorder, unspecified type; G89.4 Chronic pain syndrome; K21.9 Gastro-esophageal reflux disease without esophagitis; I50.9 Heart failure, unspecified; Z79.890 Hormone replacement therapy; Z79.899 Other long term (current) drug therapy; Z80.49 Family history of malignant neoplasm of other genital organs; Z68.37 Body mass index [BMI] 37.0-37.9, adult; Z82.49 Family history of ischemic heart disease and other diseases of the circulatory system; Z86.718 Personal history of other venous thrombosis and embolism; Z90.49 Acquired absence of other specified parts of digestive tract; Z98.891 History of uterine scar from previous surgery; Z98.51 Tubal ligation status; Z98.890 Other specified postprocedural states; Z99.89 Dependence on other enabling machines and devices; Z87.01 Personal history of pneumonia (recurrent); Z87.440 Personal history of urinary (tract) infections; Z80.9 Family history of malignant neoplasm, unspecified; Z88.1 Allergy status to other antibiotic agents; Z88.2 Allergy status to sulfonamides; Z88.8 Allergy status to other drugs, medicaments and biological substances
CPT/HCPCS: 36415; 71046; 71275; 80048; 80053; 83605; 83735; 84484; 85025; 85379; 85610; 85730; 87040; 87070; 87205; 87502; 93005; 94640; 94760; 96365; 96366; 96367; 99291

== ENCOUNTER 2019-12-03 15:55 | Inpatient (IN) | payer MEDICARE, OTHER ==
[2019-12-03] MEDS ORDERED: SODIUM CHLORIDE 0.9% 500 ML 500 ML IV STA (16:39)
--- NOTE | 2019-12-03 17:03 | ED ---
General Adult HPI - General Chief complaint: Recheck/Abnormal Lab/Rx Stated complaint: trouble walking Time Seen by Provider: 12/03/19 16:19 Source: patient, RN notes reviewed, old records reviewed Mode of arrival: wheelchair Limitations: no limitations - History of Present Illness Initial comments: 49-year-old female history of MS presenting with bilateral lower extremity weakness. Patient's symptoms began on November 18, she reports that began quite s uddenly and she's been unable to ambulate secondary to the weakness since that time. This was approximately 2 weeks prior to evaluation today. Symptoms have been unchanged over this time. Patient states she was admitted with influenza and became septic she was treated with IV antibiotics and IV steroids. She does not believe this weakness is related to her MS. She denies worsening cough or dyspnea. She has a baseline mild cough. Reported low-grade fevers. No abdominal pain. No vomiting. She had a recent CT where she reports they had found a mass on her adrenal gland. She is also complaining of some low back pain. Denies injury. States she has had some urinary incontinence. No bowel incontinence. - Related Data Home Medications Medication Instructions Recorded Confirmed EPINEPHrine (Auto Inject) [Epipen] 0.3 mg IM ONCE PRN 10/06/15 04/01/19 Ergocalciferol [Vitamin D2 50,000 unit PO TH 01/26/16 04/01/19 (DRISDOL)] Gabapentin 800 mg PO TID 08/13/16 04/01/19 LORazepam [Ativan] 1 mg PO TID PRN 05/21/17 04/01/19 Meclizine [Antivert] 12.5 mg PO Q12H PRN 05/21/17 04/01/19 Meloxicam [Mobic] 15 mg PO HS 05/21/17 04/01/19 tiZANidine [Zanaflex] 4 mg PO TID 05/21/17 04/01/19 Zonisamide [Zonegran] 100 - 200 mg PO HS PRN 10/15/17 04/01/19 Methocarbamol [Robaxin] 750 mg PO TID 09/12/18 04/01/19 Furosemide [Lasix] 40 mg PO DAILY PRN 09/30/18 04/01/19 Potassium Chloride [Klor-Con 20] 20 meq PO DAILY PRN 09/30/18 04/01/19 DULoxetine HCL [Cymbalta] 30 mg PO HS 11/13/18 04/01/19 Dextroamphetamine/Amphetamine 30 mg PO BID 11/13/18 04/01/19 [Adderall] Ondansetron HCl [Zofran] 8 mg PO TID PRN 11/13/18 04/01/19 Levothyroxine Sodium [Synthroid] 100 mcg PO QAM 02/04/19 04/01/19 buPROPion HCL [Wellbutrin SR] 150 mg PO BID 02/04/19 04/01/19 DULoxetine HCL [Cymbalta] 60 mg PO HS 04/01/19 04/01/19 Hydrocortisone [Cortef] 10 mg PO HS 04/01/19 04/01/19 Hydrocortisone [Cortef] 30 mg PO DAILY 04/01/19 04/01/19 Ketorolac [Toradol] 10 mg PO TID 04/01/19 04/01/19 Morphine Sulfate ER [Ms Contin] 30 mg PO Q12HR 04/01/19 04/01/19 Omeprazole 40 mg PO DAILY 04/01/19 04/01/19 Rizatriptan Odt [Maxalt [employer]GER] 5 mg PO BID PRN 04/01/19 04/01/19 Previous Rx's Medication Instructions Recorded Budesonide-Formot 160-4.5 Mcg 2 puff INHALATION RT-BID #1 puff 04/05/19 [Symbicort 160-4.5 Mcg Inhaler] Ipratropium-Albuterol Nebulize 3 ml INHALATION RT-QID #120 04/05/19 [Duoneb 0.5 mg-3 mg/3 ml Soln] ampul.neb oxyCODONE HCL/ACETAMINOPHEN 1 tab PO TID PRN #10 tablet 04/05/19 [Percocet 10-325 mg] Allergies Allergy/AdvReac Type Severity Reaction Status Date / Time sulfamethoxazole Allergy See Comment Verified 12/03/19 15:57 [From Bactrim] trimethoprim [From Bactrim] Allergy See Comment Verified 12/03/19 15:57 doxycycline AdvReac Rash/Hives Verified 12/03/19 15:57 glatiramer (copolymer 1) AdvReac Rapid Verified 12/03/19 15:57 [From Copaxone] Heart Rate,hives steroids AdvReac Unknown Uncoded 12/03/19 15:57 Review of Systems ROS Statement: Those systems with pertinent positive or pertinent negative responses have been documented in the HPI. ROS Other: All systems not noted in ROS Statement are negative. Past Medical History Past Medical History: Asthma, Blood Disorder, Heart Failure, COPD, Deep Vein Thrombosis (DVT), Eye Disorder, Fibromyalgia, Hearing Disorder / Deafness, Hyperlipidemia, Memory Impairment, Musculoskeletal Disorder, Neurologic Disorder, Osteoarthritis (OA), Pneumonia, Skin Disorder, Sleep Apnea/CPAP/BIPAP, Syncope, Thyroid Disorder Additional Past Medical History / Comment(s): Multiple sclerosis, bronchitis, factor 5 leiden, RUBI-does not wear device, DVT L leg about 2013, hiatal hernia, hoarseness/leucoplasia, adrenal insufficiency/chronic steroid use, migraines, DJD, chronic back pain, bursitis, optic neuritis bilaterally, glaucoma bilateral, bilateral tinnitis, UTI, rosacia, sinus problems, insomnia, hypersomnia. History of Any Multi-Drug Resistant Organisms: None Reported Date of last positivie culture/infection: 2013 MDRO Source:: stomach Past Surgical History: Bladder Surgery, Section, Cholecystectomy, Tubal Ligation Additional Past Surgical History / Comment(s): 09-24-18 bladder stimulator, 02/05/19 microlarygoscopy/bx, vocal cord polypectomies, cervical bx, bladder suspension, EGD with bx, colonoscopy Past Anesthesia/Blood Transfusion Reactions: Motion Sickness Past Psychological History: ADD/ADHD, Anxiety, Depression Smoking Status: Current every day smoker Past Alcohol Use History: None Reported Past Drug Use History: None Reported - Past Family History Brother(s) Family Medical History: Deep Vein Thrombosis (DVT) Father Family Medical History: Deep Vein Thrombosis (DVT) Additional Family Medical History / Comment(s): Patient states that her father has no cardiac history but his father had previous OK's. Mother Family Medical History: Cancer, Deep Vein Thrombosis (DVT), Pulmonary Embolus Additional Family Medical History / Comment(s): Cervical cancer. General Exam Limitations: no limitations General appearance: alert, in no apparent distress Head exam: Present: atraumatic, normocephalic Eye exam: Present: normal appearance, PERRL ENT exam: Present: normal exam Neck exam: Present: normal inspection. Absent: tenderness, meningismus Respiratory exam: Present: normal lung sounds bilaterally. Absent: respiratory distress Cardiovascular Exam: Present: normal rhythm, tachycardia GI/Abdominal exam: Present: soft. Absent: distended, tenderness, guarding Extremities exam: Present: normal capillary refill. Absent: tenderness, pedal edema Back exam: Present: paraspinal tenderness, vertebral tenderness (Mild tenderness in the lumbosacral region. No external signs of trauma, no skin changes.) Neurological exam: Present: alert, oriented X3, CN II-XII intact, motor sensory deficit (Bilateral lower extremity weakness, decreased sensation of the lateral aspects of bilateral legs. Patient is unable to lift the legs off the bed. She is able to wiggle her toes bilaterally.), reflexes normal (2+ bilateral patellar reflexes) Psychiatric exam: Present: normal affect, normal mood Skin exam: Present: warm, dry, intact. Absent: cyanosis, diaphoretic Course Vital Signs 12/03/19 12/03/19 15:58 17:02 Temperature 98.7 F Pulse Rate 111 H 108 H Respiratory 18 18 Rate Blood Pressure 110/79 111/72 O2 Sat by Pulse 93 L 88 L Oximetry - Reevaluation(s) Reevaluation #1: 12/03/19 17:55 Post void Residual is 480 EKG Findings - EKG Comments: EKG Findings:: EKG: Normal sinus rhythm, rate of 96 AL interval 136, QRS duration 82, QTC 437, no ST segment elevation Medical Decision Making - Medical Decision Making 49-year-old female with 2 weeks of bilateral lower extremity weakness and numbness. History of MS. On exam patient is able to wiggle her toes been unable to lift her legs against gravity. CT of the brain is performed this is negative for intracranial pathology. I did perform CT of the lumbar spine as the patient complained of some pain in the lumbar region. She hadn't 1.1 cm cystic lesion with mild stenosis. This does not appear to be large enough to totally account for the patient's symptoms. Given her history of MS she is initiated on IV steroids. I discussed case with primary care physician Dr. Palomino who will admit. Neurology placed on consult. - Lab Data Result diagrams: 12/03/19 16:53 12/03/19 16:53 Lab Results 12/03/19 12/03/19 12/03/19 Range/Units 16:53 16:53 16:53 WBC 12.7 H (3.8-10.6) k/uL RBC 5.69 H (3.80-5.40) m/uL Hgb 14.1 (11.4-16.0) gm/dL Hct 44.5 (34.0-46.0) % MCV 78.1 L (80.0-100.0) fL MCH 24.8 L (25.0-35.0) pg MCHC 31.8 (31.0-37.0) g/dL RDW 16.1 H (11.5-15.5) % Plt Count 291 (150-450) k/uL Neutrophils % 77 % Lymphocytes % 14 % Monocytes % 4 % Eosinophils % 3 % Basophils % 1 % Neutrophils # 9.8 H (1.3-7.7) k/uL Lymphocytes # 1.8 (1.0-4.8) k/uL Monocytes # 0.5 (0-1.0) k/uL Eosinophils # 0.3 (0-0.7) k/uL Basophils # 0.1 (0-0.2) k/uL Anisocytosis Slight Microcytosis Slight PT 9.3 (9.0-12.0) sec INR 0.9 (<1.2) APTT 25.3 (22.0-30.0) sec Sodium 135 L (137-145) mmol/L Potassium 4.5 (3.5-5.1) mmol/L Chloride 100 (98-107) mmol/L Carbon Dioxide 31 H (22-30) mmol/L Anion Gap 4 mmol/L BUN 22 H (7-17) mg/dL Creatinine 0.58 (0.52-1.04) mg/dL Est GFR (CKD-EPI)AfAm >90 (>60 ml/min/1.73 sqM) Est GFR (CKD-EPI)NonAf >90 (>60 ml/min/1.73 sqM) Glucose 104 H (74-99) mg/dL Calcium 9.3 (8.4-10.2) mg/dL Total Bilirubin 0.3 (0.2-1.3) mg/dL AST 29 (14-36) U/L ALT 25 (4-34) U/L Alkaline Phosphatase 75 (38-126) U/L Total Protein 6.3 (6.3-8.2) g/dL Albumin 4.0 (3.5-5.0) g/dL Urine Color Urine Appearance (Clear) Urine pH (5.0-8.0) Ur Specific Weston (1.001-1.035) Urine Protein (Negative) Urine Glucose (UA) (Negative) Urine Ketones (Negative) Urine Blood (Negative) Urine Nitrite (Negative) Urine Bilirubin (Negative) Urine Urobilinogen (<2.0) mg/dL Ur Leukocyte Esterase (Negative) 12/03/19 Range/Units 17:43 WBC (3.8-10.6) k/uL RBC (3.80-5.40) m/uL Hgb (11.4-16.0) gm/dL Hct (34.0-46.0) % MCV (80.0-100.0) fL MCH (25.0-35.0) pg MCHC (31.0-37.0) g/dL RDW (11.5-15.5) % Plt Count (150-450) k/uL Neutrophils % % Lymphocytes % % Monocytes % % Eosinophils % % Basophils % % Neutrophils # (1.3-7.7) k/uL Lymphocytes # (1.0-4.8) k/uL Monocytes # (0-1.0) k/uL Eosinophils # (0-0.7) k/uL Basophils # (0-0.2) k/uL Anisocytosis Microcytosis PT (9.0-12.0) sec INR (<1.2) APTT (22.0-30.0) sec Sodium (137-145) mmol/L Potassium (3.5-5.1) mmol/L Chloride (98-107) mmol/L Carbon Dioxide (22-30) mmol/L Anion Gap mmol/L BUN (7-17) mg/dL Creatinine (0.52-1.04) mg/dL Est GFR (CKD-EPI)AfAm (>60 ml/min/1.73 sqM) Est GFR (CKD-EPI)NonAf (>60 ml/min/1.73 sqM) Glucose (74-99) mg/dL Calcium (8.4-10.2) mg/dL Total Bilirubin (0.2-1.3) mg/dL AST (14-36) U/L ALT (4-34) U/L Alkaline Phosphatase (38-126) U/L Total Protein (6.3-8.2) g/dL Albumin (3.5-5.0) g/dL Urine Color Light Yellow Urine Appearance Clear (Clear) Urine pH 6.0 (5.0-8.0) Ur Specific Weston 1.009 (1.001-1.035) Urine Protein Negative (Negative) Urine Glucose (UA) Negative (Negative) Urine Ketones Negative (Negative) Urine Blood Negative (Negative) Urine Nitrite Negative (Negative) Urine Bilirubin Negative (Negative) Urine Urobilinogen <2.0 (<2.0) mg/dL Ur Leukocyte Esterase Negative (Negative) Disposition Clinical Impression: Exacerbation of multiple sclerosis, Bilateral leg weakness Disposition: ADMITTED IP TO THIS [facility] Condition: Stable Is patient prescribed a controlled substance at d/c from ED?: No Referrals: Jannette Palomino DO [Primary Care Provider] - 1-2 days Decision to Admit Reason: Admit from EC Decision Date: 12/03/19 Decision Time: 18:40
[2019-12-03 17:15] LABS: Anisocytosis Slight; Basophils # (A) 0.1 k/uL (0-0.2); Basophils % (A) 1 %; Eosinophils # (A) 0.3 k/uL (0-0.7); Eosinophils % (A) 3 %; HCT 44.5 % (34.0-46.0); HGB 14.1 gm/dL (11.4-16.0); Lymphocytes # (A) 1.8 k/uL (1.0-4.8); Lymphocytes % (A) 14 %; MCH 24.8 pg (25.0-35.0); MCHC 31.8 g/dL (31.0-37.0); MCV 78.1 fL (80.0-100.0); Mean Platelet Volume 7.2; Microcytosis Slight; Monocytes # (A) 0.5 k/uL (0-1.0); Monocytes % (A) 4 %; Neutrophils # (A) 9.8 k/uL (1.3-7.7); Neutrophils % (A) 77 %; Platelet Count 291 k/uL (150-450); RBC 5.69 m/uL (3.80-5.40); RDW 16.1 % (11.5-15.5); WBC 12.7 k/uL (3.8-10.6)
[2019-12-03 17:25] LABS: ALT 25 U/L (4-34); AST 29 U/L (14-36); African American GFR (CKD) >90 (>60 ml/min/1.73 sqM); Alkaline Phosphatase 75 U/L (38-126); Anion Gap 4 mmol/L; Blood Urea Nitrogen 22 mg/dL (7-17); Calcium 9.3 mg/dL (8.4-10.2); Carbon Dioxide 31 mmol/L (22-30); Chloride 100 mmol/L (98-107); Glucose 104 mg/dL (74-99); Non-African American GFR(CKD) >90 (>60 ml/min/1.73 sqM); Potassium 4.5 mmol/L (3.5-5.1); Sodium 135 mmol/L (137-145); Total Bilirubin 0.3 mg/dL (0.2-1.3); Total Protein 6.3 g/dL (6.3-8.2)
[2019-12-03 17:27] LABS: INR 0.9 (<1.2); Partial Thromboplastin Time 25.3 sec (22.0-30.0); Prothrombin Time 9.3 sec (9.0-12.0)
--- NOTE | 2019-12-03 17:42 | CT ---
EXAMINATION TYPE: CT brain wo con DATE OF EXAM: 12/03/2019 COMPARISON: None HISTORY: 49-year-old female Bilateral leg weakness TECHNIQUE: Examination was done in axial plane without intravenous contrast. Coronal and sagittal r econstructions performed. CT DLP: 1113.4 mGycm Automated exposure control for dose reduction was used. FINDINGS: There is no evidence of acute intracranial hemorrhage, acute ischemic changes, mass, mass-effect, or extra-axial fluid collection. There is no effacement of cerebral sulci or basal subarachnoid cister ns. There is no hydrocephalus. There is no midline shift. Armijo-white matter distinction is preserv ed. Paranasal sinuses and mastoid air cells are well pneumatized. Orbits and globes are intact. IMPRESSION: No acute intracranial abnormality seen.
--- NOTE | 2019-12-03 17:48 | CT ---
EXAMINATION TYPE: CT lumbar spine wo con DATE OF EXAM: 12/03/2019 COMPARISON: MRI 09/19/2018 HISTORY: 49-year-old female bilateral leg weakness TECHNIQUE: Contiguous axial scanning of the lumbar spine without IV contrast. Coronal and sagittal re constructions performed. CT DLP: 1770.6 mGycm Automated exposure control for dose reduction was used. FINDINGS: Large patient body habitus results in excessive noise artifact limiting assessment of the spinal stephen l. There is mild multilevel degenerative disc disease with suggestion of underlying bulging discs. Hypertrophic facet arthropathy mid to lower lumbar spine with grade 1 anterolisthesis at L5-S1. Vertebral body heights are preserved. At L4-L5, there is an abnormal 1.1 cm density occupying the right lateral recess. This effaces the ri ght lateral aspect of the thecal sac causing mild overall spinal canal stenosis and would likely impi nge the traversing right L5 nerve root. It also contributes to mild overall narrowing of the right ne uroforamen. At L5-S1, changes result in mild to moderate bilateral neuroforaminal stenosis without spinal canal s tenosis. IMPRESSION: 1. A 1.1 CM DENSITY OCCUPYING THE RIGHT LATERAL RECESS AT L4-L5. THIS COULD REPRESENT A PROMINENT SYN OVIAL CYST FROM THE DEGENERATIVE FACET JOINT OR AN EXTRUDED DISC FRAGMENT. THIS EFFACES THE RIGHT LAT ERAL ASPECT OF THE THECAL SAC CAUSING MILD OVERALL SPINAL CANAL STENOSIS AND ALSO LIKELY IMPINGES THE TRAVERSING RIGHT L5 NERVE ROOT. IT ALSO CONTRIBUTES TO MILD RIGHT NEURAL FORAMINAL STENOSIS. THE RAULITO ACUNA IS NEW FROM THE 09/19/2018 MRI. 2. HYPERTROPHIC FACET ARTHROPATHY MID TO LOWER LUMBAR SPINE WITH DEGENERATIVE GRADE 1 ANTEROLISTHESIS L5-S1. MILD TO MODERATE BILATERAL NEUROFORAMINAL STENOSIS AT THIS LEVEL. 3. NO VERTEBRAL COMPRESSION COLLAPSE.
[2019-12-03 18:28] LABS: Appearance,Urine Clear (Clear); Bilirubin,Urine Negative (Negative); Blood,Urine Negative (Negative); Color,Urine Light Yellow; Glucose,Urine (UA) Negative (Negative); Ketones,Urine Negative (Negative); Leukocyte Esterase,Urine Negative (Negative); Nitrite,Urine Negative (Negative); Protein,Urine Negative (Negative); Specific Gravity,Urine 1.009 (1.001-1.035); Urobilinogen,Urine <2.0 mg/dL (<2.0)
[2019-12-03] MEDS ORDERED: IBUPROFEN 400 MG TAB PO PRN (18:30)
[2019-12-03] MEDS ORDERED: HYDROmorphone 0.5 MG/0.5 ML SYRINGE IVP PRN (18:30)
[2019-12-03] MEDS ORDERED: NALOXONE 0.4 MG/ML 1 ML VIAL IV PRN (18:30)
[2019-12-03] MEDS ORDERED: ONDANSETRON 4 MG/2 ML VIAL IVP PRN (18:30)
[2019-12-03] MEDS: SODIUM CHLORIDE 0.9% 1,000 ML IV SCH (19:14)
[2019-12-03] MEDS: DEXAMETHASONE SOD PHOSPHATE 10 MG/ML 1 ML VIAL IV STA ×2 (19:14→19:15)
[2019-12-03] MEDS ORDERED: ZONISAMIDE 100 MG CAP PO PRN (21:41)
[2019-12-03] MEDS ORDERED: ONDANSETRON 4 MG TAB PO PRN (21:41)
[2019-12-03] MEDS: oxyCODONE-APAP 10-325MG 1 EACH TAB PO SCH (23:21)
[2019-12-03] MEDS: METHOCARBAMOL 750 MG TAB PO SCH (23:22)
[2019-12-03] MEDS: GABAPENTIN 400 MG CAP PO SCH (23:23)
[2019-12-04] MEDS: DULoxetine HCL 30 MG CAPSULE.DR PO SCH (00:09)
[2019-12-04] MEDS: MORPHINE SULFATE ER 30 MG TABLET PO SCH ×2 (00:09→09:08)
[2019-12-04] MEDS: DULoxetine HCL 60 MG CAPSULE.DR PO SCH (00:09)
[2019-12-04] MEDS: traZODone HCL 100 MG TAB PO SCH (00:11)
[2019-12-04] MEDS: MORPHINE SULFATE ER 15 MG TABLET PO SCH ×2 (00:12→09:08)
[2019-12-04] MEDS: methylPREDNISolone SOD SUCCI 125 MG/2 ML VIAL IV SCH ×2 (00:59→06:01)
[2019-12-04] MEDS: LEVOTHYROXINE 125 MCG TAB PO SCH (05:51)
[2019-12-04] MEDS ORDERED: HYDROCORTISONE 20 MG TAB PO SCH (09:00)
[2019-12-04] MEDS ORDERED: diphenhydrAMINE 50 MG/ML 1 ML VIAL IVP STA (09:02)
[2019-12-04] MEDS: MONTELUKAST 10 MG TAB PO SCH (09:04)
[2019-12-04] MEDS: POTASSIUM CHLORIDE ER 20 MEQ TAB.ER PO SCH (09:05)
[2019-12-04] MEDS: PANTOPRAZOLE 40 MG TABLET PO SCH (09:05)
[2019-12-04] MEDS: MAGNESIUM OXIDE 400 MG TAB PO SCH (09:05)
[2019-12-04] MEDS: oxyCODONE-APAP 10-325MG 1 EACH TAB PO SCH ×2 (09:05→15:34)
[2019-12-04] MEDS: GABAPENTIN 400 MG CAP PO SCH ×2 (09:07→15:34)
[2019-12-04] MEDS: LACOSAMIDE 50 MG TABLET PO SCH (09:07)
[2019-12-04] MEDS: METHOCARBAMOL 750 MG TAB PO SCH ×2 (09:08→15:33)
[2019-12-04] MEDS: Dextroamphetamine/Amphetamine [Adderall] 30 MG PO SCH (09:09)
[2019-12-04] MEDS ORDERED: ALBUTEROL NEBULIZED 2.5 MG/3 ML INHALATION PRN (10:33)
[2019-12-04] MEDS: LORazepam 1 MG TAB PO PRN (11:40)
[2019-12-04] MEDS: NICOTINE 21MG/24HR PATCH TRANSDERM SCH (11:40)
[2019-12-04] MEDS ORDERED: DEXAMETHASONE SOD PHOSPHATE 4 MG/ML 1 ML VIAL IV SCH (12:00)
--- NOTE | 2019-12-04 15:53 | P.CNOR ---
History of Present Illness - [facility] Consult date: 12/04/19 Requesting physician: Richy Palomino Consult reason: other (L4-5 facet cyst/herniation; low back pain) History of present illness: Patient is a very pleasant 49-year-old female who is seen and examined at the bedside for further evaluation of her lumbar spine. Consultation was placed by Dr. Palomino in medicine after CT imaging showed evidence of a facet cyst/disc herniation at L4-5 which was not seen on previous lumbar MRI imaging taken from 09/19/2018. After examination and further discussion of the bedside, patient does have a significant medical history. Patient has a history of multiple sclerosis. She does not feel her current symptoms are in relation to her mult iple sclerosis. Patient states her last lumbar MRI was 09/19/2018. She states on 09/24/2018 she had a bladder stimulator placed. She is able to undergo MRIs but states they must be performed with a different magnet setting. She states she knows she is able to have MRI imaging performed at [facility]. She states following CT imaging performed on 10/28/2019, she was found to have a n adrenal mass. She had a follow-up CT scan of the abdomen and pelvis performed on either 11/20/2019 or 11/21/2019 for further evaluation of the adrenal mass. She states they're planning for a PET scan. She has not been able to have specific evaluation for her known adrenal mass. She states on 11/07/2019 she presented to [facility] for further treatment after being diagnosed with influence A. She states during her admission she became septic. She states she was admitted to the hospital for 7 days for treatment. She was discharged on 11/14/2019. She states that at approximately between 9:00 am and 9:30 am the morning of 11/19/2019 she woke up and noticed her bed was soiled due to her bladder. She states she was able to resume normal bladder function after that time. She states in the morning she was able to ambulate without difficulty. She states over the next 24 hours she experienced significant neurological loss and states she had went from normal ambulation, to ambulation with a 4 pronged cane, to ambulation with a walker, to using a wheelchair to aid in ambulation in just over a 24-hour period. She did not come to the hospital for further evaluation. She states since that time she hoped her symptoms would improve. Her symptoms have continued to worsen since that time. She states she initially started with numbness and tingling in the bilateral feet that has began to ascend into the bilateral calves. She has normal sensation over the bilateral thighs. She denies any recent falls, accidents, or injuries. She does admit to numbness in the fingertips and bilateral hands as well. She has some weakness with her roving hand on the right and interosseous bilaterally. She denies any other upper extremity weakness. She has been experiencing signifi cant weakness with the bilateral lower extremities is unable to ambulate or lift her lower extremities. She does experience lumbosacral back pain as well which radiates into the bilateral buttocks. She does not experience pain that radiates down distally down the lower extremities bilaterally. She states she has touched base with her neurologist whom she sees in the outpatient setting prior to coming to the hospital and since her admission to question whether her symptoms could be related to changes in her bladder stimulator. She states that her symptoms would be unrelated to her bladder stimulator. Patient states she does have normal sensation with urination and bowel movements. She's been having a bowel movement without difficulty. She has had catheterization for urination in the bed if she is unable to transfer to the restroom. Patient does have a significant medical history is well which includes asthma, blood disorder, heart failure, COPD, history of DVT, hyperlipidemia, multiple sclerosis, recent sepsis and influenza a, fibromyalgia, and thyroid disorder. Nursing states the patient was also set to be prescribed Decadron but patient is unwilling to take this medication due to ALLERGIC reaction. Past Medical History Past Medical History: Asthma, Blood Disorder, Heart Failure, COPD, Deep Vein Thrombosis (DVT), Eye Disorder, Fibromyalgia, Hearing Disorder / Deafness, Hyperlipidemia, Memory Impairment, Musculoskeletal Disorder, Neurologic Disorder, Osteoarthritis (OA), Pneumonia, Skin Disorder, Sleep Apnea/CPAP/BIPAP, Syncope, Thyroid Disorder Additional Past Medical History / Comment(s): Multiple sclerosis, bronchitis, factor 5 leiden, RUBI-does not wear device, DVT L leg about 2013, hiatal hernia, hoarseness/leucoplasia, adrenal insufficiency/chronic steroid use, migraines, DJD, chronic back pain, bursitis, optic neuritis bilaterally, glaucoma bilateral, bilateral tinnitis, UTI, rosacia, sinus problems, insomnia, hypersomnia. carpal tunel History of Any Multi-Drug Resistant Organisms: None Reported Year Discovered:: 2013 MDRO Source:: stomach Past Surgical History: Bladder Surgery, Section, Cholecystectomy, Tubal Ligation Additional Past Surgical History / Comment(s): 09-24-18 bladder stimulator, 02/05/19 microlarygoscopy/bx, vocal cord polypectomies, cervical bx, bladder suspension, EGD with bx, colonoscopy Past Anesthesia/Blood Transfusion Reactions: Motion Sickness Past Psychological History: ADD/ADHD, Anxiety, Depression Additional Psychological History / Comment(s): Pt resides with her spouse. She has a cane/walker/shower chair. states she does not drive siince of 11/19/2019. Smoking Status: Current every day smoker Past Alcohol Use History: None Reported Additional Past Alcohol Use History / Comment(s): 1 ppd smoker since 1981 Past Drug Use History: None Reported Additional Drug Use History / Comment(s): occ marijuana use- - Past Family History Brother(s) Family Medical History: Deep Vein Thrombosis (DVT) Father Family Medical History: Deep Vein Thrombosis (DVT) Additional Family Medical History / Comment(s): Patient states that her father has no cardiac history but his father had previous FL's. Mother Family Medical History: Cancer, Deep Vein Thrombosis (DVT), Pulmonary Embolus Additional Family Medical History / Comment(s): Cervical cancer. Medications and Allergies Home Medications Medication Instructions Recorded Confirmed Type Gabapentin 800 mg PO TID 08/13/16 12/03/19 History LORazepam [Ativan] 1 mg PO TID PRN 05/21/17 12/03/19 History Meclizine [Antivert] 12.5 mg PO Q12H PRN 05/21/17 12/03/19 History Meloxicam [Mobic] 15 mg PO HS 05/21/17 12/03/19 History tiZANidine [Zanaflex] 4 mg PO TID 05/21/17 12/03/19 History Zonisamide [Zonegran] 100 - 200 mg PO HS PRN 10/15/17 12/03/19 History Methocarbamol [Robaxin] 750 mg PO TID 09/12/18 12/03/19 History Potassium Chloride [Klor-Con 20] 20 meq PO BID 09/30/18 12/03/19 History DULoxetine HCL [Cymbalta] 30 mg PO HS 11/13/18 12/03/19 History Dextroamphetamine/Amphetamine 30 mg PO BID 11/13/18 12/03/19 History [Adderall] DULoxetine HCL [Cymbalta] 60 mg PO HS 04/01/19 12/03/19 History Hydrocortisone [Cortef] 10 mg PO BID 04/01/19 12/03/19 History Morphine Sulfate ER [Ms Contin] 30 mg PO BID 04/01/19 12/03/19 History Albuterol Nebulized [Ventolin 2.5 mg INHALATION RT-QID PRN 12/03/19 12/03/19 History Nebulized] Fluticasone Propionate 220 Mcg 1 - 2 puff INHALATION RT-BID 12/03/19 12/03/19 History [Flovent 220 Mcg Inhaler (Bulk)] Lacosamide [Vimpat] 100 mg PO BID 12/03/19 12/03/19 History Levothyroxine Sodium 125 mcg PO DAILY 12/03/19 12/03/19 History Magnesium Oxide 400 mg PO DAILY 12/03/19 12/03/19 History Meclizine HCl 12.5 mg PO BID PRN 12/03/19 12/03/19 History Montelukast [Singulair] 10 mg PO DAILY 12/03/19 12/03/19 History Morphine Sulfate ER [Ms Contin] 15 mg PO BID 12/03/19 12/03/19 History Omeprazole 20 mg PO BID 12/03/19 12/03/19 History Ondansetron HCl [Zofran] 4 mg PO Q8H PRN 12/03/19 12/03/19 History Rizatriptan Benzoate [Maxalt] 10 mg PO DAILY PRN 12/03/19 12/03/19 History oxyCODONE HCL/ACETAMINOPHEN 1 tab PO TID 12/03/19 12/03/19 History [Percocet 10-325 mg] traZODone HCL 100 mg PO HS 12/03/19 12/03/19 History Allergies Allergy/AdvReac Type Severity Reaction Status Date / Time sulfamethoxazole Allergy See Comment Verified 12/03/19 19:03 [From Bactrim] trimethoprim [From Bactrim] Allergy See Comment Verified 12/03/19 19:03 doxycycline AdvReac Rash/Hives Verified 12/03/19 19:03 glatiramer (copolymer 1) AdvReac Rapid Verified 12/03/19 19:03 [From Copaxone] Heart Rate,hives steroids AdvReac Unknown Uncoded 12/03/19 15:57 Physical Examination Physical exam: Patient is awake, alert, and oriented 3 Vital signs appear stable Good chest excursion with deep inspiration and expiration Examination of lumbar spine reveals skin is intact with no abrasions, lacerations, or bruises; no erythema, purulence or signs of infection No significant pain with palpation over the lumbar spine Significant neurological loss of bilateral lower extremities Patient is able to minimally lift the lower extremities off the bed in dependently with greater strength on the right than the left Patient is unable to perform significant dorsiflexion or plantar flexion bilaterally Patient is unable to perform hip flexion bilaterally Patient is minimally able to wiggle her toes bilaterally Significant decreased sensation with palpation over the feet bilaterally Decreased sensation over the calves bilaterally Normal sensation with palpation over the thighs bilaterally No evidence of ankle clonus bilaterally Patellar reflex 2+ bilaterally No evidence of hyperreflexia Negative Lasegue's test bilaterally No signs or symptoms of DVT; no calf pain Full range of motion of the cervical spine with adequate flexion, extension, and bilateral rotation Motor strength of the upper extremity is 5/5 including thumb extension, biceps strength, triceps strength, and shoulder strength bilaterally Motor strength of the upper extremity is 4/5 including interosseous bilaterally Motor strength he upper extremity is 4-/5 including roving hand on the right No upper extremity hyperreflexia bilaterally Hoffmans sign negative upper extremity bilaterally Results Pertinent studies: CT of the lumbar spine taken on 12/03/2019: L4-5 abnormal 1.1 cm density occupying the right lateral recess which could represent prominent facet cyst or extruded disc fragment which effaces the right lateral aspect of the thecal sac causing mild spinal canal stenosis and likely impinging of the right traversing L5 nerve root with neural foraminal narrowing in which this was not evident on previous lumbar MRI imaging from 09/19/2018; L5-S1 grade 1 spondylolisthesis with mild to moderate bilateral neural foraminal stenosis without central canal stenosis; multilevel degenerative disc disease; facet hypertrophy of the middle lower lumbar spine - Labs Labs: Abnormal Lab Results - Last 24 Hours (Table) 12/03/19 12/03/19 Range/Units 16:53 16:53 WBC 12.7 H (3.8-10.6) k/uL RBC 5.69 H (3.80-5.40) m/uL MCV 78.1 L (80.0-100.0) fL MCH 24.8 L (25.0-35.0) pg RDW 16.1 H (11.5-15.5) % Neutrophils # 9.8 H (1.3-7.7) k/uL Sodium 135 L (137-145) mmol/L Carbon Dioxide 31 H (22-30) mmol/L BUN 22 H (7-17) mg/dL Glucose 104 H (74-99) mg/dL H & H 12/03/19 Range/Units 16:53 Hgb 14.1 (11.4-16.0) gm/dL Hct 44.5 (34.0-46.0) % Coagulation 12/03/19 Range/Units 16:53 INR 0.9 (<1.2) Result Diagrams: 12/03/19 16:53 12/03/19 16:53 Assessment and Plan Assessment: Assessment: Acute neurological loss in bilateral lower extremities Significant and debilitating bilateral lower extremity weakness Changes in sensation bilateral lower extremities Inability to ambulate L4-5 abnormal 1.1 cm density occupying the right lateral recess which could represent prominent facet cyst or extruded disc fragment L5-S1 spondylolisthesis Lumbar degenerative disc disease Lumbar facet hypertrophy Lumbosacral pain radiating to the bilateral buttocks Numbness in the fingertips of the hands bilaterally Upper extremity weakness Episode of urinary incontinence History of recent diagnosis of an adrenal mass Multiple sclerosis History of asthma History of blood disorder Heart failure COPD History of DVT Hyperlipidemia Recent sepsis Recent influenza A Fibromyalgia Thyroid disorder (1) Lower extremity weakness Current Visit: Yes Status: Acute Code(s): R29.898 - OTH SYMPTOMS AND SIGNS INVOLVING THE MUSCULOSKELETAL SYSTEM SNOMED Code(s): 221301448 (2) Unable to ambulate Current Visit: Yes Status: Acute Code(s): R26.2 - DIFFICULTY IN WALKING, NOT ELSEWHERE CLASSIFIED SNOMED Code(s): 259869348 (3) Paresthesia of both legs Current Visit: Yes Status: Acute Code(s): R20.2 - PARESTHESIA OF SKIN SNOMED Code(s): 984639635 (4) Bilateral finger numbness Current Visit: Yes Status: Acute Code(s): R20.0 - ANESTHESIA OF SKIN SNOMED Code(s): 538774962 (5) Synovial cyst of lumbar facet joint Current Visit: Yes Status: Acute Code(s): M71.38 - OTHER BURSAL CYST, OTHER SITE SNOMED Code(s): 471614769 (6) Spondylolisthesis at L5-S1 level Current Visit: Yes Status: Acute Code(s): M43.17 - SPONDYLOLISTHESIS, LUMBOSACRAL REGION SNOMED Code(s): 186633940 (7) Lumbar degenerative disc disease Current Visit: Yes Status: Acute Code(s): M51.36 - OTHER INTERVERTEBRAL DISC DEGENERATION, LUMBAR REGION SNOMED Code(s): 42915152 (8) Lumbar facet arthropathy Current Visit: Yes Status: Acute Code(s): M47.816 - SPONDYLOSIS W/O MYELOPATHY OR RADICULOPATHY, LUMBAR REGION SNOMED Code(s): 600118120 (9) Lumbosacral pain Current Visit: Yes Status: Acute Code(s): M54.5 - LOW BACK PAIN SNOMED Code(s): 426691242 (10) Bilateral buttock pain Current Visit: Yes Status: Acute Code(s): M79.18 - MYALGIA, OTHER SITE SNOMED Code(s): 936853429 (11) Upper extremity weakness Current Visit: Yes Status: Acute Code(s): R29.898 - OTH SYMPTOMS AND SIGNS INVOLVING THE MUSCULOSKELETAL SYSTEM SNOMED Code(s): 577291831 (12) Adrenal mass Current Visit: Yes Status: Acute Code(s): E27.8 - OTHER SPECIFIED DISORDERS OF ADRENAL GLAND SNOMED Code(s): 692847740 (13) History of asthma Current Visit: Yes Status: Acute Code(s): Z87.09 - PERSONAL HISTORY OF OTHER DISEASES OF THE RESPIRATORY SYSTEM SNOMED Code(s): 921817067 (14) History of blood disorder Current Visit: Yes Status: Acute Code(s): Z86.2 - PRSNL HISTORY OF [facility] Code(s): 076443508 (15) Heart failure Current Visit: Yes Status: Acute Code(s): I50.9 - HEART FAILURE, UNSPECIFIED SNOMED Code(s): 81097467 (16) COPD (chronic obstructive pulmonary disease) Current Visit: Yes Status: Acute Code(s): J44.9 - CHRONIC OBSTRUCTIVE PULMONARY DISEASE, UNSPECIFIED SNOMED Code(s): 47443393 (17) History of DVT (deep vein thrombosis) Current Visit: Yes Status: Acute Code(s): Z86.718 - PERSONAL HISTORY OF OTHER VENOUS THROMBOSIS AND EMBOLISM SNOMED Code(s): 646196732 (18) Hyperlipidemia Current Visit: Yes Status: Acute Code(s): E78.5 - HYPERLIPIDEMIA, UNSPECIFIED SNOMED Code(s): 11406807 (19) Thyroid disorder Current Visit: Yes Status: Acute Code(s): E07.9 - DISORDER OF THYROID, UNSPECIFIED SNOMED Code(s): 54821834 (20) Incontinence of urine in female Current Visit: Yes Status: Acute Code(s): R32 - UNSPECIFIED URINARY INCONTINENCE SNOMED Code(s): 845718241 (21) Fibromyalgia Current Visit: No Status: Acute Code(s): M79.7 - FIBROMYALGIA SNOMED Code(s): 751283070 (22) Multiple sclerosis Current Visit: No Status: Acute Code(s): G35 - MULTIPLE SCLEROSIS SNOMED Code(s): 82240547 Plan: Plan: 1. Patient has been discussed in significant detail with Dr. Eduardo Olivera. After physical examination of the patient, reviewing of imaging available, and further discussion with the patient, we will plan to obtain MRI imaging of the patient's cervical spine, thoracic spine, and lumbar spine. Patient has been experiencing acute neurological loss in her bilateral lower extremities with significant weakness and change in sensation bilateral lower extremities in which her quick neurological decline was most significant over a 24-hour period. She states from the morning of 11/19/2019 through the end of the day she went from normal ambulation to requiring a wheelchair to aid in ambulation. She has been experiencing numbness in the bilateral feet that has now been ascending into the bilateral calves. She has normal sensation in the thighs bilaterally. She has been experiencing numbness in the fingertips of the hands bilaterally as well. Patient is known have multiple sclerosis. She does not feel her symptoms aren't any relation to her multiple sclerosis. Reviewing of CT imaging does show evidence of a facet cyst or disc herniation on the right at L4-5. These findings do not correlate well with the patient's significant and debilitating symptoms. Patient does experience lumbosacral pain with pain radiating into the bilateral buttocks. She does not experience pain that radiates down the bilateral lower extremities below the buttocks. Her change in sensation has been ascending. Patient's previous lumbar imaging was performed on 09/19/2018. She does have history of bladder stimulator placement and states she is able to have lumbar imaging performed in an MRI Center with an appropriate magnet. She states she does know that this could be performed at [facility]. She is unsure of other locations. Given her acute neurological loss and decline, we feel MRI imaging of the entire spine for screening and further evaluation of the spinal cord is necessary at this time in order to rule out changes in her spinal cord for the cause of her debilitating symptoms. We also discussed the importance of consultation with neurology for further evaluation. Consultation has been placed with neurology who is planning for further evaluation of the patient the bedside today. We discussed it is possible that the patient may have another neurological disorder, including the possibility of Guillain-Duff syndrome, possible MS exacerbation, or another neurological condition which could be causing the patient's debilitating symptoms. We would appreciate the evaluation and plan of care from neurology based on their assessment. At this time, we will plan to obtain further imaging at her cervical spine, thoracic spine, and lumbar spine to rule out a spinal cause of her symptoms. Plan of care has been discussed in detail with Dr. Eduardo Olivera and he is in agreement with this plan. 2. Patient currently planned for consultation by neurology today 3. Continue with medications for control her symptoms as set forth by medicine 4. Patient will continue to be seen and examined by medicine Time with Patient: Greater than 30 (Including obtaining history, physical examination, reviewing of imaging, and dictation.)
--- NOTE | 2019-12-04 16:52 | P.CNNES ---
History of Present Illness Consult date: 12/04/19 Requesting physician: Don Agee Reason for Consult: History of MS, bilateral lower extremity weakness. History of Present Illness: Patient is a 49-year-old female, who has history of multiple sclerosis diagnosed in 2011. At that time she has presented with acute onset of inability to walk, talk and CVA was suspected. However the MRI and lumbar puncture revealed MS. Patient has been on Copaxone, Gilenya, Tecfidera, Betaseron, but nothing worked. For the last 2 years she has been on Ocrevus and the last dose she received was 4-5 months ago. She follows up with Dr. Lino. Patient states that she has been very ambulatory, no falls, no injury. On 11/19/2019, she woke up and was fine. However she noticed that she has passed urine while sleeping at night in the bed was wet. She later gained sensation for bladder. She notices that her balance was slightly off that day and started using her quad cane, which she has not used since 2014. However rapidly it became worse, and she went on a walker and then wheelchair the same day. She became paraplegic. She was having severe low back pain, pointing to the very low back in the sacral region extending to the tailbone area, and the pain would get worse if she would stand or move certain ways. She states she tried to speak to her neurologist as well. As her symptoms persisted, she came to the ER. Patient denies any symptoms in the upper limbs. States her control of bowels and bladder has come back to baseline. She does have some incontinence, for which she has a bladder stimulation placed. She does dribble urine sometimes, which is now at baseline. Patient states that at present she has numbness in the low back. Her thighs in the front and back feels fine, but her buttocks are numb. Front of the lower legs feels weird and cannot feel her both feet. Patient also mentions that she was recently admitted to [facility] from November 06 to November 13, this year. She received Decadron for possible MS exacerbation. She also was diagnosed with mass on the adrenals, for which she has been scheduled for a PET scan. Patient underwent Computed tomography scan of head was normal. CT of the lumbar spine showed 1.1 cm density occupying the right lateral recess at L4 5. This could represent a prominent synovial cyst from the degenerative facet joint widening eroded disc fragment or an extruded disc fragment. This effaces the right lateral aspect of the thecal sac causing mild overall spinal canal stenosis and also likely impinging the traversing right L5 nerve root. It also contributes to mild right neural foraminal stenosis. The finding is new from the 09/19/2018 MRI. Degenerative grade 1 anterolisthesis L5-S1. Mild to moderate bilateral neural foraminal stenosis at this level. EKG shows normal sinus rhythm. Patient's MRI of the brain from 09/17/2018 showed stable signal abnormalities compatible with patient's history of multiple sclerosis. MRI of the cervical spine from 09/17/2018 showed stable degenerative disc disease with multilevel foraminal encroachment. Patient JCV antibodies negative. 0.13 on 08/07/2019. Patient is heterozygous for MTHFR mutation. Anticardiolipin antibodies IgM borderline 12.6/12.5, MEGAN negative, hepatitis panel negative. B12 was normal 390 on 08/07/2018, B6 5 which is borderline. B1 68, hemoglobin A1c 6.0 Patient denies hypertension or diabetes. She has smoked 1 pack per day since age 15. Denies any alcohol use. Patient also has fibromyalgia, for which she takes gabapentin, Cymbalta and Vimpat 100 mg twice a day, as per patient report. Patient is also given Zonegran 100 mg as needed for migraines by her neurologist. I confirmed with patient about names of these medications she is taking for the conditions listed. Review of Systems As above in detail. 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 Denies chest pain shortness of breath wheezing or cough. No fever. Past Medical History Past Medical History: Asthma, Blood Disorder, Heart Failure, COPD, Deep Vein Thrombosis (DVT), Eye Disorder, Fibromyalgia, Hearing Disorder / Deafness, Hyperlipidemia, Memory Impairment, Musculoskeletal Disorder, Neurologic Disorder, Osteoarthritis (OA), Pneumonia, Skin Disorder, Sleep Apnea/CPAP/BIPAP, Syncope, Thyroid Disorder Additional Past Medical History / Comment(s): Multiple sclerosis, bronchitis, factor 5 leiden, RUBI-does not wear device, DVT L leg about 2013, hiatal hernia, hoarseness/leucoplasia, adrenal insufficiency/chronic steroid use, migraines, DJD, chronic back pain, bursitis, optic neuritis bilaterally, glaucoma bilateral, bilateral tinnitis, UTI, rosacia, sinus problems, insomnia, hypersomnia. carpal tunel History of Any Multi-Drug Resistant Organisms: None Reported Date of last positivie culture/infection: 2013 MDRO Source:: stomach Past Surgical History: Bladder Surgery, Section, Cholecystectomy, Tubal Ligation Additional Past Surgical History / Comment(s): 09-24-18 bladder stimulator, 01/25 10/15 microlarygoscopy/bx, vocal cord polypectomies, cervical bx, bladder suspension, EGD with bx, colonoscopy Past Anesthesia/Blood Transfusion Reactions: Motion Sickness Past Psychological History: ADD/ADHD, Anxiety, Depression Additional Psychological History / Comment(s): Pt resides with her spouse. She has a cane/walker/shower chair. states she does not drive siince of 11/19/2019. Smoking Status: Current every day smoker Past Alcohol Use History: None Reported Additional Past Alcohol Use History / Comment(s): 1 ppd smoker since 1981 Past Drug Use History: None Reported Additional Drug Use History / Comment(s): occ marijuana use- - Past Family History Brother(s) Family Medical History: Deep Vein Thrombosis (DVT) Father Family Medical History: Deep Vein Thrombosis (DVT) Additional Family Medical History / Comment(s): Patient states that her father has no cardiac history but his father had previous OK's. Mother Family Medical History: Cancer, Deep Vein Thrombosis (DVT), Pulmonary Embolus Additional Family Medical History / Comment(s): Cervical cancer. Medications and Allergies Home Medications Medication Instructions Recorded Confirmed Type Gabapentin 800 mg PO TID 08/13/16 12/03/19 History LORazepam [Ativan] 1 mg PO TID PRN 05/21/17 12/03/19 History Meclizine [Antivert] 12.5 mg PO Q12H PRN 05/21/17 12/03/19 History Meloxicam [Mobic] 15 mg PO HS 05/21/17 12/03/19 History tiZANidine [Zanaflex] 4 mg PO TID 05/21/17 12/03/19 History Zonisamide [Zonegran] 100 - 200 mg PO HS PRN 10/15/17 12/03/19 History Methocarbamol [Robaxin] 750 mg PO TID 09/12/18 12/03/19 History Potassium Chloride [Klor-Con 20] 20 meq PO BID 09/30/18 12/03/19 History DULoxetine HCL [Cymbalta] 30 mg PO HS 11/13/18 12/03/19 History Dextroamphetamine/Amphetamine 30 mg PO BID 11/13/18 12/03/19 History [Adderall] DULoxetine HCL [Cymbalta] 60 mg PO HS 04/01/19 12/03/19 History Hydrocortisone [Cortef] 10 mg PO BID 04/01/19 12/03/19 History Morphine Sulfate ER [Ms Contin] 30 mg PO BID 04/01/19 12/03/19 History Albuterol Nebulized [Ventolin 2.5 mg INHALATION RT-QID PRN 12/03/19 12/03/19 History Nebulized] Fluticasone Propionate 220 Mcg 1 - 2 puff INHALATION RT-BID 12/03/19 12/03/19 History [Flovent 220 Mcg Inhaler (Bulk)] Lacosamide [Vimpat] 100 mg PO BID 12/03/19 12/03/19 History Levothyroxine Sodium 125 mcg PO DAILY 12/03/19 12/03/19 History Magnesium Oxide 400 mg PO DAILY 12/03/19 12/03/19 History Meclizine HCl 12.5 mg PO BID PRN 12/03/19 12/03/19 History Montelukast [Singulair] 10 mg PO DAILY 12/03/19 12/03/19 History Morphine Sulfate ER [Ms Contin] 15 mg PO BID 12/03/19 12/03/19 History Omeprazole 20 mg PO BID 12/03/19 12/03/19 History Ondansetron HCl [Zofran] 4 mg PO Q8H PRN 12/03/19 12/03/19 History Rizatriptan Benzoate [Maxalt] 10 mg PO DAILY PRN 12/03/19 12/03/19 History oxyCODONE HCL/ACETAMINOPHEN 1 tab PO TID 12/03/19 12/03/19 History [Percocet 10-325 mg] traZODone HCL 100 mg PO HS 12/03/19 12/03/19 History Allergies Allergy/AdvReac Type Severity Reaction Status Date / Time sulfamethoxazole Allergy See Comment Verified 12/03/19 19:03 [From Bactrim] trimethoprim [From Bactrim] Allergy See Comment Verified 12/03/19 19:03 doxycycline AdvReac Rash/Hives Verified 12/03/19 19:03 glatiramer (copolymer 1) AdvReac Rapid Verified 12/03/19 19:03 [From Copaxone] Heart Rate,hives steroids AdvReac Unknown Uncoded 12/03/19 15:57 Physical Examination - Vital Signs Vital Signs: Vital Signs Temp Pulse Pulse Resp BP BP BP 12/04/19 15:00 98.6 F 112 H 16 100/70 12/04/19 05:01 98.2 F 97 20 107/73 12/03/19 20:34 98.0 F 89 16 107/72 12/03/19 20:00 98.1 F 87 109/84 12/03/19 19:15 98.3 F 93 18 120/72 12/03/19 17:02 108 H 18 111/72 12/03/19 15:58 98.7 F 111 H 18 110/79 Pulse Ox 12/04/19 15:00 95 12/04/19 05:01 90 L 12/03/19 20:34 91 L 12/03/19 20:00 93 L 12/03/19 19:15 94 L 12/03/19 17:02 88 L 12/03/19 15:58 93 L Intake and Output 12/04/19 12/04/19 12/04/19 06:59 14:59 22:59 Intake Total 220 Output Total 1450 Balance -1450 220 Intake: Oral 220 Output: Urine 1450 Other: Voiding Method Indwelling Catheter Indwelling Catheter On examination patient is a middle aged female, in no acute distress. Patient is alert and awake oriented to time place and person. Speech and language functions are normal. Attention and concentration fund of knowledge is adequate. On cranial nerve exam admission pupils are round and reactive to light, visual washburn are full on confrontation, extraocular muscles intact with no nystagmus. Face is symmetric and tongue protrudes the midline. Palatal elevation and sensation normal. On muscle strength testing there is no pronator drift and the strength is normal in the arms distally and proximally. Second Mate is 5-bilaterally. In the lower limbs, she is paraplegic. She can only move her hip and knee trace bilaterally. Cannot move her feet or toes. Reflexes are 2+ at the knees, 1 at ankles and plantars are upgoing bilaterally. Sensory touch is decreased from goes all the way up to T7 level. Joint position sense is sign ificantly decreased. No ataxia for [id number] testing. Cannot walk. Results - Laboratory Findings CBC and BMP: 12/03/19 16:53 12/03/19 16:53 Abnormal Lab Findings: Abnormal Labs 12/03/19 04 16:53 16:53 WBC 12.7 H RBC 5.69 H MCV 78.1 L MCH 24.8 L RDW 16.1 H Neutrophils # 9.8 H Sodium 135 L Carbon Dioxide 31 H BUN 22 H Glucose 104 H Assessment and Plan Assessment: * 49-year-old female with history of multiple sclerosis, admitted with acute onset of paraparesis that progressed in 24 hours on 11/19/2019. She has been in the same condition since then. Patient recently was treated for MS exacerb ation for 7 days, discharged 5 days prior to onset of these new symptoms. Rule out MS exacerbation, or spinal cord compression, conus medullaris/cauda equina. CT of the lumbar spine showed possible extruded disc fragment, but would not be causing bilaterally symmetric paraparesis acutely. No history of recent falls or trauma. * Tobacco user. * Recent history of diagnosis of an adrenal mass. * Presence of InterStim. Plan: * Patient cannot have MRI of the spine because of presence of bladder stimulator. * I would suggest CT myelogram of the lumbar, thoracic and cervical spine. * Suggest bone scan to rule out bony metastasis, given her recent diagnosis of adrenal mass. She may need PET scan when possible. * I discussed with patient about empirically treatment with steroids, but she declined. She states that she has just received treatment for MS exacerbation from November 06 to November 13. She wants to wait until above test results are available. * Discussed with orthopedic surgery in detail as well. * DVT prophylaxis.
[2019-12-04] MEDS: SODIUM CHLORIDE 0.9% 1,000 ML IV SCH (20:14)
[2019-12-04] MEDS: FLUTICASONE 110 MCG INHALER (BULK) INHALATION SCH (20:32)
--- NOTE | 2019-12-04 21:06 | CT ---
EXAMINATION TYPE: CT CervThoracic spine wo con DATE OF EXAM: 12/04/2019 COMPARISON: None HISTORY: Acute neurologic loss, inability to ambulate. CT DLP: 2884.[address] of the cervical spine and thoracic was performed with bone and soft tissue window setti ngs submitted. Coronal and sagittal reconstruction is obtained. Cervical spine: There is normal alignment and prevertebral soft tissues. I do not see evidence for f racture or subluxation. There is moderate to severe degenerative disc space narrowing identified at C 5-6 and C6-7 and to a lesser extent C4-5. There is ventral and dorsal spondylosis. Posterior disc bul ge is noted at each of these levels. Mild effacement of the ventral thecal sac at C5-6 and C6-7. Dege nerative change of the cervical apophyseal joints with mild bilateral foraminal encroachment at each of these levels. No hanna central stenosis appreciated. Thoracic spine: No evidence for fracture or malalignment. Mild degenerative disc space narrowing is s een throughout with scattered ventral spondylosis. No disc herniation or protrusion. No central steno sis evident. IMPRESSION: 1. No evidence for fracture or subluxation. 2. Degenerative disc disease and spondylosis throughout the cervical and thoracic spines as discussed above. No evidence for central stenosis.
[2019-12-04] MEDS: DEXAMETHASONE SOD PHOSPHATE 4 MG/ML 1 ML VIAL IV SCH (22:22)
[2019-12-05] MEDS: GABAPENTIN 400 MG CAP PO SCH ×4 (00:34→21:42)
[2019-12-05] MEDS: MORPHINE SULFATE ER 30 MG TABLET PO SCH ×3 (00:34→20:20)
[2019-12-05] MEDS: MORPHINE SULFATE ER 15 MG TABLET PO SCH ×3 (00:36→20:21)
[2019-12-05] MEDS: oxyCODONE-APAP 10-325MG 1 EACH TAB PO SCH ×3 (00:37→15:30)
[2019-12-05] MEDS: LACOSAMIDE 50 MG TABLET PO SCH ×3 (00:38→20:19)
[2019-12-05] MEDS: LORazepam 1 MG TAB PO PRN ×2 (00:39→11:08)
[2019-12-05] MEDS: Dextroamphetamine/Amphetamine [Adderall] 30 MG PO SCH ×3 (00:40→20:18)
[2019-12-05] MEDS: DULoxetine HCL 60 MG CAPSULE.DR PO SCH ×2 (00:42→20:19)
[2019-12-05] MEDS: DULoxetine HCL 30 MG CAPSULE.DR PO SCH ×2 (00:42→20:19)
[2019-12-05] MEDS: POTASSIUM CHLORIDE ER 20 MEQ TAB.ER PO SCH ×3 (00:50→20:21)
[2019-12-05] MEDS: traZODone HCL 100 MG TAB PO SCH ×2 (00:50→20:22)
[2019-12-05] MEDS: METHOCARBAMOL 750 MG TAB PO SCH ×4 (00:50→21:42)
[2019-12-05] MEDS: LEVOTHYROXINE 125 MCG TAB PO SCH (06:36)
[2019-12-05] MEDS: MAGNESIUM OXIDE 400 MG TAB PO SCH (08:52)
[2019-12-05] MEDS: MONTELUKAST 10 MG TAB PO SCH (08:52)
[2019-12-05] MEDS: NICOTINE 21MG/24HR PATCH TRANSDERM SCH (08:53)
[2019-12-05] MEDS: PANTOPRAZOLE 40 MG TABLET PO SCH (08:53)
[2019-12-05] MEDS: FLUTICASONE 110 MCG INHALER (BULK) INHALATION SCH (09:00)
[2019-12-05] MEDS: ENOXAPARIN 40 MG/0.4 ML SYRINGE SQ SCH (09:39)
--- NOTE | 2019-12-05 10:20 | P.HPIM ---
History of Present Illness H&P Date: 12/04/19 Chief Complaint: weakness Karlos Rojo is a 49 yo F with PMH of multiple sclerosis, chronic pain, migraine, COPD, asthma who presented to the ED complaining of significant we akness over the past 3 weeks. She states that she was recently admitted to [facility] in early October for influenza and at that time was treated with tamiflu and steroids. She notes that after her discharge while her steroids were being tapered, she had a day where she began to experience an acute decline in her lower extremity strength associated with tailbone pain. On November 18 she states she was initially walking, albeit painfully that morning, but her legs started to feel heavier and after she took a nap was unable to walk when she woke up. She has been in her wheelchair since then. Pt states she did contact her neurologist, Dr Duque who ordered a CT abd/pelvis which pt had completed on 11/24 at [facility]. This showed a new 2 cm L suprarenal mass and recommended PET/CT for further evaluation. In the ED, pt's vitals and labs were overall unremarkable, brain CT negative and lumbar CT showed 1.1 cm density to L5 facet possibly representing synovial cyst. Pt currently complains of weakness and i ncomplete numbness to her bilateral LE extending up to her mid abdomen. Review of Systems All systems: negative Constitutional: Reports malaise, Reports weakness, Denies chills, Denies fever Eyes: denies blurred vision, denies pain Ears, nose, mouth and throat: Denies headache, Denies sore throat Cardiovascular: Denies chest pain, Denies shortness of breath Respiratory: Denies cough Gastrointestinal: Denies abdominal pain, Denies diarrhea, Denies nausea, Denies vomiting Genitourinary: Denies dysuria, Denies hematuria Musculoskeletal: Reports limitation of motion, Reports muscle weakness, Reports shooting leg pain, Denies myalgias Integumentary: Denies pruritus, Denies rash Neurological: Reports ataxia, Reports balance difficulties, Reports motor disturbance, Reports weakness, Denies numbness Psychiatric: Denies anxiety, Denies depression Endocrine: Denies fatigue, Denies weight change Past Medical History Past Medical History: Asthma, Blood Disorder, Heart Failure, COPD, Deep Vein Thrombosis (DVT), Eye Disorder, Fibromyalgia, Hearing Disorder / Deafness, Hyperlipidemia, Memory Impairment, Musculoskeletal Disorder, Neurologic Disorder, Osteoarthritis (OA), Pneumonia, Skin Disorder, Sleep Apnea/CPAP/BIPAP, Syncope, Thyroid Disorder Additional Past Medical History / Comment(s): Multiple sclerosis, bronchitis, factor 5 leiden, RUBI-does not wear device, DVT L leg about 2013, hiatal hernia, hoarseness/leucoplasia, adrenal insufficiency/chronic steroid use, migraines, DJD, chronic back pain, bursitis, optic neuritis bilaterally, glaucoma bilateral, bilateral tinnitis, UTI, rosacia, sinus problems, insomnia, hypersomnia. carpal tunel History of Any Multi-Drug Resistant Organisms: None Reported Date of last positivie culture/infection: 2013 MDRO Source:: stomach Past Surgical History: Bladder Surgery, Section, Cholecystectomy, Tubal Ligation Additional Past Surgical History / Comment(s): 09-24-18 bladder stimulator, 02/05/19 microlarygoscopy/bx, vocal cord polypectomies, cervical bx, bladder suspension, EGD with bx, colonoscopy Past Anesthesia/Blood Transfusion Reactions: Motion Sickness Past Psychological History: ADD/ADHD, Anxiety, Depression Additional Psychological History / Comment(s): Pt resides with her spouse. She has a cane/walker/shower chair. states she does not drive siince of 11/19/2019. Smoking Status: Current every day smoker Past Alcohol Use History: None Reported Additional Past Alcohol Use History / Comment(s): 1 ppd smoker since 1981 Past Drug Use History: None Reported Additional Drug Use History / Comment(s): occ marijuana use- - Past Family History Brother(s) Family Medical History: Deep Vein Thrombosis (DVT) Father Family Medical History: Deep Vein Thrombosis (DVT) Additional Family Medical History / Comment(s): Patient states that her father has no cardiac history but his father had previous ND's. Mother Family Medical History: Cancer, Deep Vein Thrombosis (DVT), Pulmonary Embolus Additional Family Medical History / Comment(s): Cervical cancer. Medications and Allergies Home Medications Medication Instructions Recorded Confirmed Type Gabapentin 800 mg PO TID 08/13/16 12/03/19 History LORazepam [Ativan] 1 mg PO TID PRN 05/21/17 12/03/19 History Meclizine [Antivert] 12.5 mg PO Q12H PRN 05/21/17 12/03/19 History Meloxicam [Mobic] 15 mg PO HS 05/21/17 12/03/19 History tiZANidine [Zanaflex] 4 mg PO TID 05/21/17 12/03/19 History Zonisamide [Zonegran] 100 - 200 mg PO HS PRN 10/15/17 12/03/19 History Methocarbamol [Robaxin] 750 mg PO TID 09/12/18 12/03/19 History Potassium Chloride [Klor-Con 20] 20 meq PO BID 09/30/18 12/03/19 History DULoxetine HCL [Cymbalta] 30 mg PO HS 11/13/18 12/03/19 History Dextroamphetamine/Amphetamine 30 mg PO BID 11/13/18 12/03/19 History [Adderall] DULoxetine HCL [Cymbalta] 60 mg PO HS 04/01/19 12/03/19 History Hydrocortisone [Cortef] 10 mg PO BID 04/01/19 12/03/19 History Morphine Sulfate ER [Ms Contin] 30 mg PO BID 04/01/19 12/03/19 History Albuterol Nebulized [Ventolin 2.5 mg INHALATION RT-QID PRN 12/03/19 12/03/19 History Nebulized] Fluticasone Propionate 220 Mcg 1 - 2 puff INHALATION RT-BID 12/03/19 12/03/19 History [Flovent 220 Mcg Inhaler (Bulk)] Lacosamide [Vimpat] 100 mg PO BID 12/03/19 12/03/19 History Levothyroxine Sodium 125 mcg PO DAILY 12/03/19 12/03/19 History Magnesium Oxide 400 mg PO DAILY 12/03/19 12/03/19 History Meclizine HCl 12.5 mg PO BID PRN 12/03/19 12/03/19 History Montelukast [Singulair] 10 mg PO DAILY 12/03/19 12/03/19 History Morphine Sulfate ER [Ms Contin] 15 mg PO BID 12/03/19 12/03/19 History Omeprazole 20 mg PO BID 12/03/19 12/03/19 History Ondansetron HCl [Zofran] 4 mg PO Q8H PRN 12/03/19 12/03/19 History Rizatriptan Benzoate [Maxalt] 10 mg PO DAILY PRN 12/03/19 12/03/19 History oxyCODONE HCL/ACETAMINOPHEN 1 tab PO TID 12/03/19 12/03/19 History [Percocet 10-325 mg] traZODone HCL 100 mg PO HS 12/03/19 12/03/19 History Allergies Allergy/AdvReac Type Severity Reaction Status Date / Time sulfamethoxazole Allergy See Comment Verified 12/03/19 19:03 [From Bactrim] trimethoprim [From Bactrim] Allergy See Comment Verified 12/03/19 19:03 doxycycline AdvReac Rash/Hives Verified 12/03/19 19:03 glatiramer (copolymer 1) AdvReac Rapid Verified 12/03/19 19:03 [From Copaxone] Heart Rate,hives steroids AdvReac Unknown Uncoded 12/03/19 15:57 Physical Exam Vitals: Vital Signs Temp Pulse Resp BP Pulse Ox 12/05/19 04:59 98.0 F 104 H 12 97/63 93 L 12/04/19 22:30 97 12/04/19 20:06 98.6 F 90 16 107/73 91 L 12/04/19 15:00 98.6 F 112 H 16 100/70 95 Intake and Output 12/04/19 12/05/19 12/05/19 22:59 06:59 14:59 Output Total 900 2000 Balance -900 -2000 Output: Urine 900 2000 Other: Voiding Method Indwelling Catheter Indwelling Catheter # Bowel Movements 1 General: well nourished, well developed white female in [facility]. Vitals reviewed Eyes: PERRL, EOMI, conjunctiva normal HENT: normocephalic, mucus membranes moist Neck: supple, no JVD Lungs: normal respiratory effort, no wheezes or rales CV: Regular rate and rhythm, no murmur. Peripheral pulses 2+ Abdomen: soft, nondistended, no organomegaly Lymph: no cervical or axillary LAD Skin: warm and dry. Neuro: A&Ox3, normal mood and affect. Bilateral lower extremities str 2/5. Absent proprioception to great toe hola, UE str 5/5 Results CBC & Chem 7: 12/03/19 16:53 12/03/19 16:53 Thrombosis Risk Factor Assmnt - Choose All That Apply Each Factor Represents 1 point: Age 41-60 years Each Risk Factor Represents 3 Points: Positive Factor V Leiden Thrombosis Risk Factor Assessment Total Risk Factor Score: 4 Thrombosis Risk Factor Assessment Level: Moderate Risk Assessment and Plan (1) Chronic low back pain Current Visit: Yes Status: Acute Code(s): M54.5 - LOW BACK PAIN; G89.29 - OTHER CHRONIC PAIN SNOMED Code(s): 394047924 (2) Adrenal mass Current Visit: Yes Status: Acute Code(s): E27.8 - OTHER SPECIFIED DISORDERS OF ADRENAL GLAND SNOMED Code(s): 722569740 (3) Bilateral leg weakness Current Visit: Yes Status: Acute Code(s): R29.898 - OTH SYMPTOMS AND SIGNS INVOLVING THE MUSCULOSKELETAL SYSTEM SNOMED Code(s): 1481593 (4) Exacerbation of multiple sclerosis Current Visit: Yes Status: Acute Code(s): G35 - MULTIPLE SCLEROSIS SNOMED Code(s): 757050223 (5) History of DVT (deep vein thrombosis) Current Visit: Yes Status: Acute Code(s): Z86.718 - PERSONAL HISTORY OF OTHER VENOUS THROMBOSIS AND EMBOLISM SNOMED Code(s): 356486943 (6) Spondylolisthesis at L5-S1 level Current Visit: Yes Status: Acute Code(s): M43.17 - SPONDYLOLISTHESIS, LUMBOSACRAL REGION SNOMED Code(s): 960287311 (7) Synovial cyst of lumbar facet joint Current Visit: Yes Status: Acute Code(s): M71.38 - OTHER BURSAL CYST, OTHER SITE SNOMED Code(s): 959107348 (8) Fibromyalgia Current Visit: No Status: Acute Code(s): M79.7 - FIBROMYALGIA SNOMED Code(s): 565558545 (9) Movement disorder Current Visit: No Status: Acute Code(s): G25.9 - EXTRAPYRAMIDAL AND MOVEMENT DISORDER, UNSPECIFIED SNOMED Code(s): 64660093 (10) Multiple sclerosis Current Visit: No Status: Acute Code(s): G35 - MULTIPLE SCLEROSIS SNOMED Code(s): 96981724 Plan: 1. Bilateral leg weakness, exacerbation of low back pain. Secondary to MS flare vs possible new lumbar facet cyst seen on imaging. Neurology and spinal surgery consult. Resume IV steroids, solumedrol 60 mg tid. Continue home MS contin, percocet, gabapentin and ativan. Continue robaxin prn 2. L suprarenal mass. Seen on CT on 11/24. Further eval with PET this admission if possible 3. COPD. Continue flovent, albuterol nebs 4. GERD. Protonix 5. Migraine disorder. Continue vimpat and zonegran prn 6. Tobacco abuse. Nicotine patch DVT prophlaxis lovenox
--- NOTE | 2019-12-05 12:50 | P.PN ---
Progress Note - Text Progress Note Date: 12/05/19 The patient is seen and examined today at bedside. I'm accompanied by Jorge Rangel our physician reading assistant as well. I reviewed his dictation yesterday and discussed case with him yesterday. I also approved a computed tomography scan of the thoracic and cervical spine yesterday. I have been able to review the images and reports. The patient continues to have significant difficulty at her bilateral lower extremities equally. She feels that the pain came on quite suddenly without incident or trauma. The description of her symptoms has not changed from yesterday. She does have some pain in her lower back and radiating out toward her hips. She does not have specific pain down her legs. She does not have radicular pattern to her pain. She has very little motion at her lower extremities. She is unable to stand up and bear weight on her legs. She has not lost control of her bowels. She does not have specific urinary retention but is unable to get up out of bed to use the bathroom. She denies any chills. She says she had some slight fevers. On exam At her lower extremities she has 1-2 out of 5 dorsiflexion at her bilateral toes. Essentially 0 out of 5 in her ankles. She has about 2 out of 5 at her bilateral knees and hips. Her thighs and calves soft nontender. She has no neural tension signs. She has no hyperreflexia. Her upper extremities have full active and passive range of motion. Her neck is nontender to palpation range of motion. She has no pain with hyperflexion at her neck. The computed tomography scan reports and images are reviewed. Cervical and thoracic spine did not show any obvious central compression. There is some disc degeneration at C56 and C6 7 without evidence of central stenosis. There is some foraminal encroachment. Her thoracic spine does not show any evidence of herniation or central stenosis. Lumbar computed tomography scan shows a facet cyst L4 5 with foraminal stenosis unilaterally. Assessment and plan Abrupt onset of Bilateral lower extremity weakness History of MS No evidence of cauda equina syndrome Calcified facet cyst L4 5 foraminal stenosis without specific radiculopathy It is difficult to determine the etiology of the patient's lower extremity weakness. She has bilateral weakness without urinary retention and without loss of bowel control. She does have some pain at her lower back and across her hips which is likely due to her degenerative changes of the lumbar spine as well as her facet arthrosis and facet cyst. Despite this she does not have a specific radicular pattern to correlate well with her lumbar spine findings. I do not think that her bilateral lower extremity issues correlate well with her spinal findings. I do not have any specific plan for surgical intervention for her spine at this point. He is difficult to determine the etiology of her symptoms however I think that this may relate for more to a neurologic issue than it does a specific spinal compression issue. She does not demonstrate evidence of symptoms at her neck or upper extremities. And she does not seem to have specific thoracic changed correlate with her symptoms. She says that she is going to start some steroid medication and I think that is appropriate. I think she should continue workup from a neurology standpoint to determine further etiology of her symptoms pathology. It is okay from a spine standpoint for her to try to mobilize and weight-bear to tolerance. I think that it would be helpful for her to try to work with therapy to see if she can mobilize at her lower extremities and work towards transfers.
[2019-12-05] MEDS ORDERED: PREMYELOGRAM MEDICATION REVIEW 1 EACH MISC PO ONE (13:08)
[2019-12-05] MEDS: DEXAMETHASONE SOD PHOSPHATE 4 MG/ML 1 ML VIAL IV SCH (14:36)
--- NOTE | 2019-12-05 15:25 | P.PN ---
Subjective Progress Note Date: 12/05/19 Patient says she is feeling slightly better. Able to wiggle her toes, feet and legs a little. No new focal symptoms. Patient has Bansal's catheter in. Patient appears otherwise stable. Objective - Vital Signs Vital signs: Vital Signs Temp 98.3 F 12/05/19 13:07 Pulse 100 12/05/19 13:07 Resp 18 12/05/19 13:07 BP 119/83 12/05/19 13:07 Pulse Ox 94 L 12/05/19 13:07 Intake & Output 12/04/19 12/05/19 12/05/19 18:59 06:59 18:59 Intake Total 220 540 Output Total 1900 2900 Balance -1680 -2900 540 Intake: Intake, IV Titration 0 Amount Sodium Chloride 0.9% 1, 0 000 ml @ 20 mls/hr IV . Q24H ULYSSES Rx#:[id number] Oral 220 540 Output: Urine 1900 2900 Other: Voiding Method Indwelling Catheter Indwelling Catheter # Voids 1 # Bowel Movements 1 - Exam Patient's mental status, speech and language functions cranial nerves are normal. Strength is normal in the upper limbs. In the lower limbs, her hip flexion is 1-2, hip abduction 3, hip abduction 3, knee extension 1, ankle dorsiflexion 1, toe extension 1. Reflexes are brisk in the lower limbs and plantars possible upgoing. Patient has decreased sensation distally in the legs. - Labs CBC & Chem 7: 12/03/19 16:53 12/03/19 16:53 Assessment and Plan Assessment: * Possible MS exacerbation with transverse myelitis/conus medullaris. CT of the lumbar spine showed possible extruded disc fragment, but would not be less likely causing bilaterally symmetric paraparesis acutely. No history of recent falls or trauma. * Tobacco user. * Recent history of diagnosis of an adrenal mass. * Presence of InterStim. Plan: * Patient cannot have MRI of the spine because of presence of bladder stimulator. * Discussed with orthopedic surgery, who is aware of disc extrusion, but does not believe is the cause of her paraparesis. He is not intending to do any surgery on her back. CT myelogram was canceled. * CT scan of cervical and thoracic spine without contrast revealed no evidence for fracture or subluxation. Degenerative disc disease and spondylosis throughout the cervical and thoracic spines. No spinal stenosis. * Suggest bone scan to rule out bony metastasis, given her recent diagnosis of adrenal mass. She may need PET scan when possible. PET scan has been ordered. Per nurse report, could not be done until next Sunday, one week from now. I discussed with patient about empirically treatment with high-dose steroids, but she declined. She states that she has just received treatment for MS exacerbation from November 06 to November 13. Patient is on low-dose Solu- Medrol 60 mg every 8 hours. She wants to stay on it. * DVT prophylaxis. * Neurology coverage not available on the weekend.
[2019-12-05] MEDS: diphenhydrAMINE 50 MG/ML 1 ML VIAL IVP SCH ×2 (15:31→23:17)
[2019-12-05] MEDS: methylPREDNISolone SOD SUCCI 125 MG/2 ML VIAL IV SCH ×2 (15:32→23:17)
[2019-12-05] MEDS: SODIUM CHLORIDE 0.9% 1,000 ML IV SCH (18:40)
[2019-12-05] MEDS: FLUTICASONE 110 MCG INHALER INHALATION SCH (19:18)
[2019-12-05] MEDS: MORPHINE SULFATE 4 MG/ML SYRINGE IVP PRN (21:48)
[2019-12-06] MEDS: LEVOTHYROXINE 125 MCG TAB PO SCH (06:09)
[2019-12-06] MEDS: MORPHINE SULFATE 4 MG/ML SYRINGE IVP PRN ×3 (06:19→18:16)
[2019-12-06 07:46] LABS: Basophils % (A) 0 %; Eosinophils % (A) 0 %; HCT 44.9 % (34.0-46.0); HGB 14.4 gm/dL (11.4-16.0); Hypochromasia Slight; Lymphocytes % (A) 7 %; MCH 25.1 pg (25.0-35.0); MCHC 31.9 g/dL (31.0-37.0); MCV 78.6 fL (80.0-100.0); Mean Platelet Volume 7.3; Monocytes # (A) 0.3 k/uL (0-1.0); Monocytes % (A) 2 %; Neutrophils # (A) 13.2 k/uL (1.3-7.7); Neutrophils % (A) 91 %; Platelet Count 317 k/uL (150-450); RBC 5.71 m/uL (3.80-5.40); RDW 15.2 % (11.5-15.5); WBC 14.5 k/uL (3.8-10.6)
[2019-12-06] MEDS: MORPHINE SULFATE ER 15 MG TABLET PO SCH ×2 (07:52→20:20)
[2019-12-06] MEDS: POTASSIUM CHLORIDE ER 20 MEQ TAB.ER PO SCH ×2 (07:52→20:19)
[2019-12-06] MEDS: MONTELUKAST 10 MG TAB PO SCH (07:52)
[2019-12-06] MEDS: MORPHINE SULFATE ER 30 MG TABLET PO SCH ×2 (07:57→20:20)
[2019-12-06] MEDS: PANTOPRAZOLE 40 MG TABLET PO SCH (07:58)
[2019-12-06] MEDS: LACOSAMIDE 50 MG TABLET PO SCH ×2 (07:58→20:17)
[2019-12-06] MEDS: ENOXAPARIN 40 MG/0.4 ML SYRINGE SQ SCH (07:59)
[2019-12-06] MEDS: diphenhydrAMINE 50 MG/ML 1 ML VIAL IVP SCH ×2 (07:59→17:13)
[2019-12-06] MEDS: GABAPENTIN 400 MG CAP PO SCH ×3 (07:59→21:30)
[2019-12-06] MEDS: methylPREDNISolone SOD SUCCI 125 MG/2 ML VIAL IV SCH ×2 (08:00→17:13)
[2019-12-06] MEDS: NICOTINE 21MG/24HR PATCH TRANSDERM SCH (08:01)
[2019-12-06 08:03] LABS: African American GFR (CKD) >90 (>60 ml/min/1.73 sqM); Anion Gap 7 mmol/L; Blood Urea Nitrogen 15 mg/dL (7-17); Calcium 9.6 mg/dL (8.4-10.2); Carbon Dioxide 30 mmol/L (22-30); Chloride 100 mmol/L (98-107); Glucose 174 mg/dL (74-99); Non-African American GFR(CKD) >90 (>60 ml/min/1.73 sqM); Potassium 4.8 mmol/L (3.5-5.1); Sodium 137 mmol/L (137-145)
[2019-12-06] MEDS: FLUTICASONE 110 MCG INHALER INHALATION SCH ×2 (08:25→19:45)
[2019-12-06] MEDS: Dextroamphetamine/Amphetamine [Adderall] 30 MG PO SCH ×2 (08:25→20:06)
[2019-12-06] MEDS: MAGNESIUM OXIDE 400 MG TAB PO SCH (08:27)
[2019-12-06] MEDS: METHOCARBAMOL 750 MG TAB PO SCH ×3 (08:38→21:30)
[2019-12-06 09:02] VITALS: BMI 38.7
--- NOTE | 2019-12-06 10:53 | NM ---
EXAMINATION TYPE: NM bone scan whole body DATE OF EXAM: 12/06/2019 COMPARISON: NONE HISTORY: Low back pain Delayed whole-body scanning was performed following the injection of 25.6 mCi Tc 99m MDP. Images acq uired hours post injection. FINDINGS: There is a Bansal catheter in place. There is mild increased uptake in the left wrist. There is also some minimal uptake in the lower cervical spine. There is increased uptake in the forefeet b ilaterally. There is a levoscoliosis present. This may be, in part, positional. IMPRESSION: 1. Degenerative uptake as described. 2. No convincing evidence of metastases.
[2019-12-06] MEDS ORDERED: MECLIZINE 12.5 MG TAB PO PRN (15:55)
[2019-12-06 16:41] LABS: Glucose,Whole Blood 236 mg/dL (75-99)
[2019-12-06] MEDS: tiZANidine 4 MG TAB PO SCH ×2 (17:12→21:30)
[2019-12-06] MEDS: INSULIN ASPART (NovoLOG) 100 UNIT/ML VIAL SQ SCH ×2 (17:43→21:29)
--- NOTE | 2019-12-06 18:26 | PN ---
PROGRESS NOTE DATE OF SERVICE: 12/06/2019 This 49-year-old woman who was admitted with chronic low back pain and difficulty walking, weakness of both legs is on IV steroids at this time. PT/OT is evaluating the patient. The patient is able to wiggle the toes at this time but still significant weakness was noted. PT/OT is also evaluating the patient. The patient cannot have MRI but a bone scan and CT scan was done which did not show any acute abnormality. The patient being closely monitored at this time. DJD was suspected. PAST MEDICAL HISTORY: Reviewed. REVIEW OF SYSTEMS: CARDIOVASCULAR SYSTEM: No angina or palpitations. RESPIRATION: As mentioned earlier. GI mentioned as mentioned. : No dysuria. CENTRAL NERVOUS SYSTEM: As mentioned earlier. CURRENT MEDICATIONS: Reviewed and include: 1. Ventolin p.r.n. 2. Benadryl q.i.d. p.r.n. 3. Cymbalta 30 mg q.h.s. 4. Lovenox 40 mg subcu daily. 5. Flovent 100 mcg. 6. Neurontin t.i.d. 7. Motrin. 8. Vimpat. 9. Synthroid. 10.Ativan. 11.Magnesium oxide. 12.Robaxin. 13.Solu-Medrol. 14.Singular. 15.MS Contin. 16.Narcan. 17.Habitrol. 18.Zofran. 19.K-Dur. 20.Desyrel. 21.Zonegran. 22.Doses are reviewed. PHYSICAL EXAM: Patient is alert, oriented x3. Pulse is 82. Blood pressure 117/69, respiration 18, temperature 98.1, pulse ox 94% on 2 L. HEENT is conjunctivae normal. NECK: No JVD. CARDIOVASCULAR: S1, S2 muffled. RESPIRATORY: Breath sounds diminished in the bases. Scattered rhonchi and crackles. ABDOMEN: Soft, nontender. LEGS are no edema. No swelling. CENTRAL NERVOUS SYSTEM: No focal deficits. LABORATORY DATA: WBC 14.2, hemoglobin 14.4, sodium 137, potassium 4.8. ASSESSMENT: 1. Bilateral lower leg weakness possibly multiple sclerosis acute exacerbation on high-dose IV steroids. 2. History of recent diagnosis of adrenal mass. 3. History of InterStim and bladder stimulator. 4. Chronic low back pain, degenerative joint disease. 5. History of deep vein thrombosis. 6. History of spondylolysis L5-S1. 7. History of fibromyalgia. 8. Mild hyponatremia. 9. History of asthma. 10.History of chronic obstructive pulmonary disease. 11.History of degenerative joint disease. 12.Sleep apnea. 13.History of factor V Leiden deficiency. 14.History of sleep apnea. 15.History of bladder surgery. 16.Attention-deficit disorder/attention-deficit/hyperactivity disorder. 17.Anxiety and depression. 18.Obesity with body mass of 38.7. RECOMMENDATIONS AND DISCUSSION: This 49-year-old woman who presented with multiple complex medical issues, we will monitor the patient closely, continue the current medications, management and symptomatic treatment. PT/OT evaluation. DVT prophylaxis. IV steroids. Monitor blood sugars closely. I would recommend Accu-Cheks a.c. and q.h.s. as well as scale. Otherwise, closely follow. Further recommendations to follow. Discussed with staff. Discussed with the patient. Medication reconciliation done. RYDER / CHRIS: [id number] /
[2019-12-06] MEDS: SUMAtriptan SUCCINATE 50 MG TAB PO PRN (20:07)
[2019-12-06] MEDS: DULoxetine HCL 30 MG CAPSULE.DR PO SCH (20:17)
[2019-12-06] MEDS: DULoxetine HCL 60 MG CAPSULE.DR PO SCH (20:17)
[2019-12-06] MEDS: traZODone HCL 100 MG TAB PO SCH (20:17)
[2019-12-06] MEDS: MELOXICAM 7.5 MG TAB PO SCH (20:18)
[2019-12-06 21:22] LABS: Glucose,Whole Blood 321 mg/dL (75-99)
[2019-12-07] MEDS: diphenhydrAMINE 50 MG/ML 1 ML VIAL IVP SCH ×4 (00:33→23:20)
[2019-12-07] MEDS: methylPREDNISolone SOD SUCCI 125 MG/2 ML VIAL IV SCH ×4 (00:33→23:20)
[2019-12-07] MEDS: MORPHINE SULFATE 4 MG/ML SYRINGE IVP PRN ×4 (00:51→23:21)
[2019-12-07] MEDS: LEVOTHYROXINE 125 MCG TAB PO SCH (06:19)
[2019-12-07 07:04] LABS: Glucose,Whole Blood 182 mg/dL (75-99)
[2019-12-07] MEDS: GABAPENTIN 400 MG CAP PO SCH ×3 (07:48→21:53)
[2019-12-07] MEDS: PANTOPRAZOLE 40 MG TABLET PO SCH (07:48)
[2019-12-07] MEDS: MONTELUKAST 10 MG TAB PO SCH (07:48)
[2019-12-07] MEDS: LACOSAMIDE 50 MG TABLET PO SCH ×2 (07:48→20:36)
[2019-12-07] MEDS: MAGNESIUM OXIDE 400 MG TAB PO SCH (07:49)
[2019-12-07] MEDS: POTASSIUM CHLORIDE ER 20 MEQ TAB.ER PO SCH ×2 (07:49→20:38)
[2019-12-07] MEDS: ENOXAPARIN 40 MG/0.4 ML SYRINGE SQ SCH (07:49)
[2019-12-07] MEDS: INSULIN ASPART (NovoLOG) 100 UNIT/ML VIAL SQ SCH ×4 (07:50→20:58)
[2019-12-07] MEDS: Dextroamphetamine/Amphetamine [Adderall] 30 MG PO SCH ×2 (07:51→20:30)
[2019-12-07] MEDS: METHOCARBAMOL 750 MG TAB PO SCH ×3 (07:51→21:53)
[2019-12-07] MEDS: MORPHINE SULFATE ER 15 MG TABLET PO SCH ×2 (07:52→20:32)
[2019-12-07] MEDS: MORPHINE SULFATE ER 30 MG TABLET PO SCH ×2 (07:52→20:34)
[2019-12-07] MEDS: tiZANidine 4 MG TAB PO SCH ×3 (07:53→21:53)
[2019-12-07] MEDS: NICOTINE 21MG/24HR PATCH TRANSDERM SCH (07:58)
[2019-12-07] MEDS: FLUTICASONE 110 MCG INHALER INHALATION SCH ×2 (08:18→19:11)
[2019-12-07] MEDS: LORazepam 1 MG TAB PO PRN ×2 (09:21→16:56)
[2019-12-07 11:29] LABS: Glucose,Whole Blood 354 mg/dL (75-99)
[2019-12-07 14:56] VITALS: RESP 20
[2019-12-07 16:42] LABS: Glucose,Whole Blood 259 mg/dL (75-99)
[2019-12-07] MEDS: MELOXICAM 7.5 MG TAB PO SCH (20:31)
[2019-12-07 20:32] LABS: Glucose,Whole Blood 303 mg/dL (75-99)
[2019-12-07] MEDS: DULoxetine HCL 60 MG CAPSULE.DR PO SCH (20:36)
[2019-12-07] MEDS: traZODone HCL 100 MG TAB PO SCH (20:36)
[2019-12-07] MEDS: DULoxetine HCL 30 MG CAPSULE.DR PO SCH (20:37)
--- NOTE | 2019-12-07 20:47 | PN ---
PROGRESS NOTE DATE OF SERVICE: 12/07/2019 I am covering for Dr. Palomino. This 49-year-old woman was admitted with significant weakness of both legs is on IV steroids at this time. The patient unable to tolerate high-dose IV steroids because of apparent allergy previously. The patient is able to wiggle the toes and cooperate with PT/OT yesterday to some extent. Patient being closely monitored. The bone scan is negative for any metastatic lesions, but severe DJD was also considered. CT myelogram was ordered by neurology and has been canceled. The patient being closely monitored. The patient would like to return home eventually after improvement. PAST MEDICAL HISTORY: Reviewed. REVIEW OF SYSTEMS: Cardiovascular is no angina, palpitations. Respiratory as mentioned earlier. GI: As mentioned earlier. no dysuria. CURRENT MEDICATIONS: Reviewed and include: 1. Ventolin 2.5 q.i.d. p.r.n. 2. Benadryl 25 mg q.8 p.r.n. 3. Cymbalta 30 mg q.h.s. 4. Lovenox 40 mg subcu daily. 5. Flovent 110 mcg b.i.d. 6. Neurontin 800 mg p.o. t.i.d. 7. NovoLog scale. 8. Vimpat 100 mg p.o. b.i.d. 9. Synthroid. 10.Ativan 1 mg t.i.d. p.r.n. 11.Magnesium oxide 400 mg p.o. daily. 12.Antivert 12.5 mg b.i.d. 13.Mobic. 14.Robaxin 750 mg p.o. b.i.d. 15.Solu-Medrol 60 IV q.i.d. 16.Singulair 10 mg p.o. daily. 17.MS Contin 50 mg p.o. b.i.d. 18.Narcan 0.2 q.2 p.r.n. 19.Habitrol 21 daily. 20.Zofran. 21.Protonix. 22.K-Dur 20 mEq p.o. b.i.d. 23.Imitrex. 24.Zanaflex. 25.Desyrel. 26.Zonegran. PHYSICAL EXAM: Patient is alert, oriented x3. Pulse 83. Blood pressure 130/94, respiration 20, temperature 98.1, pulse ox 97% on room air. HEENT: Conjunctivae normal. Oral mucosa moist. NECK is no jugular venous distention. No carotid bruit. No lymph node enlargement. CARDIOVASCULAR: S1, S2. RESPIRATION: Breath sounds diminished in the bases. No rhonchi. No crackles. ABDOMEN: Soft, obese, nontender. LEGS no edema. No swelling. NERVOUS SYSTEM: Otherwise, higher functions as mentioned earlier. Diffuse weakness of the lower limbs present. Pulses diminished. SKIN: No ulcer, rashes or bleeding. JOINTS: No active deforming arthropathy. LABS: Accu-Cheks 236, 321, 182, 354. ASSESSMENT: 1. Bilateral lower leg weakness possibly multiple sclerosis, acute exacerbation or severe lumbar degenerative joint disease on IV steroids. 2. History of recent diagnosis of adrenal mass. 3. 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 4. History InterStim and bladder stimulator. 5. Chronic low back pain/degenerative joint disease. 6. History of deep vein thrombosis. 7. History of spondylosis L5-S1. 8. History of fibromyalgia. 9. Mild hyponatremia. 10.History of asthma. 11.History of chronic obstructive pulmonary disease. 12.Degenerative joint disease. 13.Sleep apnea. 14.History of factor 5 Leiden deficiency. 15.History of bladder surgery. 16.Attention-deficit disorder/attention-deficit/hyperactivity disorder. 17.History of anxiety, depression. 18.Obesity with body mass index 38.7. RECOMMENDATIONS AND DISCUSSION: In this 49-year-old woman who presented with multiple complex medical issues, we will monitor the patient closely. Continue the current management. Symptomatic treatment. I recommend continue with IV steroids. Monitor blood sugars closely. Insulin scale. Otherwise PT, OT evaluation. Increase ambulation. DVT prophylaxis. We will follow the patient closely and Dr. Palomino will follow tomorrow. Further recommendations to follow. MMODL / IJN: [id number] /
[2019-12-07 20:48] VITALS: TEMP 98.2
[2019-12-07] MEDS: SUMAtriptan SUCCINATE 50 MG TAB PO PRN (21:44)
[2019-12-08 04:51] VITALS: BP 141/84; PULSE 70
[2019-12-08] MEDS: MORPHINE SULFATE 4 MG/ML SYRINGE IVP PRN ×2 (05:29→11:34)
[2019-12-08] MEDS: LEVOTHYROXINE 125 MCG TAB PO SCH (05:37)
[2019-12-08 07:13] LABS: Glucose,Whole Blood 166 mg/dL (75-99)
[2019-12-08] MEDS: FLUTICASONE 110 MCG INHALER INHALATION SCH (07:35)
[2019-12-08] MEDS: INSULIN ASPART (NovoLOG) 100 UNIT/ML VIAL SQ SCH ×2 (08:09→12:10)
[2019-12-08] MEDS: MONTELUKAST 10 MG TAB PO SCH (08:10)
[2019-12-08] MEDS: MAGNESIUM OXIDE 400 MG TAB PO SCH (08:10)
[2019-12-08] MEDS: diphenhydrAMINE 50 MG/ML 1 ML VIAL IVP SCH (08:10)
[2019-12-08] MEDS: POTASSIUM CHLORIDE ER 20 MEQ TAB.ER PO SCH (08:10)
[2019-12-08] MEDS: methylPREDNISolone SOD SUCCI 125 MG/2 ML VIAL IV SCH ×2 (08:10→16:00)
[2019-12-08] MEDS: PANTOPRAZOLE 40 MG TABLET PO SCH (08:10)
[2019-12-08] MEDS: NICOTINE 21MG/24HR PATCH TRANSDERM SCH (08:10)
[2019-12-08] MEDS: Dextroamphetamine/Amphetamine [Adderall] 30 MG PO SCH (08:11)
[2019-12-08] MEDS: GABAPENTIN 400 MG CAP PO SCH ×2 (08:11→16:00)
[2019-12-08] MEDS: LACOSAMIDE 50 MG TABLET PO SCH (08:11)
[2019-12-08] MEDS: MORPHINE SULFATE ER 15 MG TABLET PO SCH (08:11)
[2019-12-08] MEDS: ENOXAPARIN 40 MG/0.4 ML SYRINGE SQ SCH (08:12)
[2019-12-08] MEDS: MORPHINE SULFATE ER 30 MG TABLET PO SCH (08:12)
[2019-12-08] MEDS: METHOCARBAMOL 750 MG TAB PO SCH ×2 (08:12→16:00)
[2019-12-08] MEDS: tiZANidine 4 MG TAB PO SCH ×2 (08:13→16:00)
--- NOTE | 2019-12-08 08:38 | P.PN ---
Subjective Progress Note Date: 12/12/19 Karlos Rojo is a 49 yo F with PMH of multiple sclerosis, chronic pain, migraine, COPD, asthma who presented to the ED complaining of significant weakness over the past 3 weeks. She states that she was recently admitted to [facility] in early October for influenza and at that time was treated with tamiflu and steroids. She notes that after her discharge while her steroids were being tapered, she had a day where she began to experience an acute decline in her lower extremity strength associated with tailbone pain. On November 18 she states she was initially walking, albeit painfully that morning, but her legs started to feel heavier and after she took a nap was unable to walk when she woke up. She has been in her wheelchair since then. Pt states she did contact her neurologist, Dr Duque who ordered a CT abd/pelvis which pt had completed on 11/24 at [facility]. This showed a new 2 cm L suprarenal mass and recommended PET/CT for further evaluation. In the ED, pt's vitals and labs were overall unremarkable, brain CT negative and lumbar CT showed 1.1 cm density to L5 facet possibly representing synovial cyst. Pt currently complains of weakness and incomplete numbness to her bilateral LE extending up to her mid abdomen. 12/05/2019 Feels better this morning.complains of chronic lower back pain, radiating to hips and to bilateral legs, about the same-not worsened.CT myelogram canceled.Unable to have MRI of the spine secondary to patient has bladder stimulator. Cervical/thoracic CT reported no central stenosis, no fracture or subluxation, degenerative disc disease and spondylolysis throughout cervical and thoracic spines. With assistance transfers to wheelchair, to bathroom, positive bowel movement last night. Afebrile. Evaluated further by orthopedic/spine surgery with no surgical intervention recommended at this time. Regarding adrenal mass, neurology discussing bone scan. PET scan also has been ordered. Patient currently on low dose steroids with Benadryl as she previously reported ALLERGIES to . Upon further questioning she reports genital burning, possibly yeast infection reaction rather than actual ALLERGY . Neurology offered empiric high-dose IV steroids which patient has declined .Denies chest pain, palpitations or shortness of breath. Denies lightheadedness, dizziness or focal deficits. Objective - Vital Signs Vital signs: Vital Signs Temp 98.0 F 12/05/19 04:59 Pulse 104 H 12/05/19 04:59 Resp 12 12/05/19 04:59 BP 97/63 12/05/19 04:59 Pulse Ox 93 L 12/05/19 04:59 Intake & Output 12/04/19 12/05/19 12/05/19 18:59 06:59 18:59 Intake Total 220 Output Total 1900 2900 Balance -1680 -2900 Intake: Oral 220 Output: Urine 1900 2900 Other: Voiding Method Indwelling Catheter Indwelling Catheter # Bowel Movements 1 - Exam General: well nourished, well developed white female in NAD. Vitals reviewed Eyes: PERRL, EOMI, conjunctiva normal HENT: normocephalic, mucus membranes moist Neck: supple, no JVD Lungs: normal respiratory effort, clear, no wheezes or rales CV: Regular rate and rhythm, no murmur. Peripheral pulses 2+ Abdomen: soft, nondistended, no organomegaly Lymph: no cervical or axillary LAD Skin: warm and dry. Neuro: A&Ox3, normal mood and affect. Bilateral lower extremities fluctuation in str, 2/5. Absent proprioception to great toe hola, UE str 5/5.wiggles toes on both feet easily. - Labs CBC & Chem 7: 12/03/19 16:53 12/03/19 16:53 Assessment and Plan Assessment: (1) Chronic low back pain Current Visit: Yes Status: Acute Code(s): M54.5 - LOW BACK PAIN; G89.29 - OTHER CHRONIC PAIN SNOMED Code(s): 218678085 (2) Adrenal mass,L. Current Visit: Yes Status: Acute Code(s): E27.8 - OTHER SPECIFIED DISORDERS OF ADRENAL GLAND SNOMED Code(s): 703781560 (3) Bilateral leg weakness Current Visit: Yes Status: Acute Code(s): R29.898 - OTH SYMPTOMS AND SIGNS INVOLVING THE MUSCULOSKELETAL SYSTEM SNOMED Code(s): 7291467 (4) Exacerbation of multiple sclerosis Current Visit: Yes Status: Acute Code(s): G35 - MULTIPLE SCLEROSIS SNOMED Code(s): 758633007 (5) History of DVT (deep vein thrombosis) Current Visit: Yes Status: Acute Code(s): Z86.718 - PERSONAL HISTORY OF OTHER VENOUS THROMBOSIS AND EMBOLISM SNOMED Code(s): 092730986 (6) Spondylolisthesis at L5-S1 level Current Visit: Yes Status: Acute Code(s): M43.17 - SPONDYLOLISTHESIS, LUMBOSACRAL REGION SNOMED Code(s): 855041838 (7) Synovial cyst of lumbar facet joint,L4-5 Current Visit: Yes Status: Acute Code(s): M71.38 - OTHER BURSAL CYST, OTHER SITE SNOMED Code(s): 205237975 (8) Fibromyalgia Current Visit: No Status: Acute Code(s): M79.7 - FIBROMYALGIA SNOMED Code(s): 835944442 (9) Movement disorder Current Visit: No Status: Acute Code(s): G25.9 - EXTRAPYRAMIDAL AND MOVEMENT DISORDER, UNSPECIFIED SNOMED Code(s): 92594037 (10) Multiple sclerosis, possible exacerbation with transverse myelitis. Current Visit: No Status: Acute Code(s): G35 - MULTIPLE SCLEROSIS SNOMED Code(s): 15740246 (11) nicotine dependence (12) gastroesophageal reflux disease (13)intact bladder stimulator, unable to proceed with MRI Plan: Continue on current medication regime ,monitoring and symptomatic treatment. Maintain nebulized bronchodilators. Attempt IV Medrol 60 mg IV push 3 times a day with Benadryl. PET scan ordered to further evaluate adrenal mass. Pain management; patient follows outpatient with neurologist, Dr. Duque, continues on home meds of MS Contin, Percocet, gabapentin, Robaxin, Ativan. GI and DVT prophylaxis in place with Protonix and Lovenox. Unable to have MRI secondary to intact bladder stimulator.Smoking cessation reinforced. Follow closely with orthopedic surgery and neurology. Prognosis guarded given multiple complex issues. The impression and plan of care has been dictated as directed. Dr.: I performed a history and examination of this patient, discussed the same with the dictator. I agree with the dictator's note ,documented as a scribe. Any additional findings or plans will be noted. The impression and plan of care has been dictated as directed. .: I performed a history and examination of this patient, discussed the same with the dictator. I agree with the dictator's note ,documented as a scribe. Any additional findings or plans will be noted.
[2019-12-08] MEDS ORDERED: ZOLPIDEM 5 MG TAB PO PRN (11:14)
[2019-12-08 11:35] LABS: Glucose,Whole Blood 256 mg/dL (75-99)
[2019-12-08] MEDS: LORazepam 1 MG TAB PO PRN (11:35)
[2019-12-08] MEDS ORDERED: NYSTATIN 100,000 UNIT/ML SUSP 500,000 UNIT/5 ML CUP PO SCH (13:00)
--- NOTE | 2019-12-08 13:35 | P.PN ---
Subjective Progress Note Date: 12/08/19 Patient says she is feeling slightly better. Able to wiggle her toes, feet and legs a little. No new focal symptoms. Patient says that she is able to walk with walker although can walk too long. She feels low-dose Solu-Medrol is helping. Still has numbness legs distally in the legs. Patient states she is feeling better with low-dose steroids. She however has developed thrush, which previously did respond to nysstatin. Objective - Vital Signs Vital signs: Vital Signs Temp 98.2 F 12/08/19 04:30 Pulse 70 12/08/19 04:30 Resp 20 12/08/19 04:30 BP 141/84 12/08/19 04:30 Pulse Ox 95 12/08/19 04:30 Intake & Output 12/07/19 12/08/19 12/08/19 18:59 06:59 18:59 Intake Total 1080 1140 Output Total 1000 2100 1700 Balance 80 -960 -1700 Weight 108.862 kg Intake: Oral 1080 1140 Output: Urine 1000 2100 1700 Uretheral (Bansal) 2100 Other: Voiding Method Indwelling Catheter Indwelling Catheter Indwelling Catheter - Exam Patient's mental status, speech and language functions cranial nerves are normal. Strength is normal in the upper limbs. In the lower limbs, she has symmetric weakness as below. Her hip flexion is 5-, knee extension normal. Hip adduction 5, hip abduction 4+, ankle dorsiflexion 2, inversion 5, peronei 0, toe extension and toe flexion 2+ to 3 bilaterally. Reflexes are brisk in the lower limbs and plantars possible upgoing. Patient has decreased sensation distally in the legs. 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 CT of the lumbar spine showed possible extruded disc fragment. No history of recent falls or trauma. * Tobacco user. * Recent history of diagnosis of an adrenal mass. * Presence of InterStim. * Tobacco user Plan: * Patient has improved with low-dose Solu-Medrol. Still weakness in bilateral L5/S1 distribution. Patient cannot have MRI of the spine in this hospital because of presence of bladder stimulator. Patient states that she can have these MRIs done at [facility], which has special magnets, that could handle her metal. Prescription was provided for patient to schedule the MRI as soon as possible and follow up with her neurologist and the orthopedic surgeon. * Bone scan revealed degenerative changes in the left wrist. There is also some minimal uptake in the lower cervical spine. There is increased uptake in the forefeet bilaterally. There is a levoscoliosis present. This may be positional. No convincing evidence of metastasis. * CT scan of cervical and thoracic spine without contrast revealed no evidence for fracture or subluxation. Degenerative disc disease and spondylosis throughout the cervical and thoracic spines. No spinal stenosis. * Patient will be discharged on prednisone tapering dose. * Suggest trying Diflucan for thrush, as she has not responded to Nysstatin in the past. * Complete tobacco cessation * Patient states that she is ready to go home. She has at home, and also has all adoptive equipment at home that will be needed. * She was recommended to follow up with her neurologist and orthopedic spine, as soon as possible after she had her MRIs completed.
[2019-12-08] MEDS ORDERED: FLUCONAZOLE 150 MG TAB PO STA (14:00)
--- NOTE | 2019-12-08 14:15 | P.DS ---
Providers Date of admission: 12/05/19 13:09 Expected date of discharge: 12/08/19 Attending physician: Richy Palomino MD Consults: 12/03/19 18:31 Consult Physician Routine Consulting Provider: Lourdes Abbott Consult Reason/Comments: History of MS, bilateral lower extremity weakness Do you want consulting provider notified?: Yes 12/04/19 11:02 Consult Physician Routine Consulting Provider: Mary Russo Consult Reason/Comments: ?adrenal adenoma on imaging Do you want consulting provider notified?: Yes 12/04/19 11:04 Consult Physician Routine Consulting Provider: Ulysses Olivera Consult Reason/Comments: weakness, lumbar mass Do you want consulting provider notified?: Yes Primary care physician: [facility] Course: Final Diagnoses: (1) Chronic low back pain Current Visit: Yes Status: Acute Code(s): M54.5 - LOW BACK PAIN; G89.29 - OTHER CHRONIC PAIN SNOMED Code(s): 650999236 (2) Adrenal mass,L. Current Visit: Yes Status: Acute Code(s): E27.8 - OTHER SPECIFIED DISORDERS OF ADRENAL GLAND SNOMED Code(s): 427143233 (3) Bilateral leg weakness Current Visit: Yes Status: Acute Code(s): R29.898 - OTH SYMPTOMS AND SIGNS INVOLVING THE MUSCULOSKELETAL SYSTEM SNOMED Code(s): 4512902 (4) Exacerbation of multiple sclerosis Current Visit: Yes Status: Acute Code(s): G35 - MULTIPLE SCLEROSIS SNOMED Code(s): 778366463 (5) History of DVT (deep vein thrombosis) Current Visit: Yes Status: Acute Code(s): Z86.718 - PERSONAL HISTORY OF OTHER VENOUS THROMBOSIS AND EMBOLISM SNOMED Code(s): 593984137 (6) Spondylolisthesis at L5-S1 level Current Visit: Yes Status: Acute Code(s): M43.17 - SPONDYLOLISTHESIS, LUMBOSACRAL REGION SNOMED Code(s): 471408171 (7) Synovial cyst of lumbar facet joint,L4-5 Current Visit: Yes Status: Acute Code(s): M71.38 - OTHER BURSAL CYST, OTHER SITE SNOMED Code(s): 863757546 (8) Fibromyalgia Current Visit: No Status: Acute Code(s): M79.7 - FIBROMYALGIA SNOMED Code(s): 042877253 (9) Movement disorder Current Visit: No Status: Acute Code(s): G25.9 - EXTRAPYRAMIDAL AND MOVEMENT DISORDER, UNSPECIFIED SNOMED Code(s): 90728841 (10) Multiple sclerosis, suspect exacerbation, with possible transverse myelitis/conus medullaris. Current Visit: No Status: Acute Code(s): G35 - MULTIPLE SCLEROSIS SNOMED Code(s): 84923707 (11) nicotine dependence (12) gastroesophageal reflux disease (13)intact bladder stimulator, unable to proceed with MRI Hospital course:Karlos Rojo is a 49 yo F with PMH of multiple sclerosis, chronic pain, migraine, COPD, asthma who presented to the ED complaining of significant weakness over the past 3 weeks. She states that she was recently admitted to [facility] in early October for influenza and at that time was treated with tamiflu and steroids. She notes that after her discharge while her steroids were being tapered, she had a day where she began to experience an acute decline in her lower extremity strength associated with tailbone pain. On November 18 she states she was initially walking, albeit painfully that morning, but her legs started to feel heavier and after she took a nap was unable to walk when she woke up. She has been in her wheelchair since then. Pt states she did contact her neurologist, Dr Duque who ordered a CT abd/pelvis which pt had completed on 11/24 at [facility]. This showed a new 2 cm L suprarenal mass and recommended PET/CT for further evaluation. In the ED, pt's vitals and labs were overall unremarkable, brain CT negative and lumbar CT showed 1.1 cm density to L5 facet possibly representing synovial cyst. Pt currently complains of weakness and i ncomplete numbness to her bilateral LE extending up to her mid abdomen. 12/05/2019 Feels better this morning.complains of chronic lower back pain, radiating to hips and to bilateral legs, about the same-not worsened.CT myelogram canceled.Unable to have MRI of the spine secondary to patient has bladder stimulator. Cervical/thoracic CT reported no central stenosis, no fracture or subluxation, degenerative disc disease and spondylolysis throughout cervical and thoracic spines. With assistance transfers to wheelchair, to bathroom, positive bowel movement last night. Afebrile. Evaluated further by orthopedic/spine surgery with no surgical intervention recommended at this time. Regarding adrenal mass, neurology discussing bone scan. PET scan also has been ordered. Patient currently on low dose steroids with Benadryl as she previously reported ALLERGIES to . Upon further questioning she reports genital burning, possibly yeast infection reaction rather than actual ALLERGY . Neurology offered empiric high-dose IV steroids which patient has declined .Denies chest pain, palpitations or shortness of breath. Denies lightheadedness, dizziness or focal deficits. Bone scan reported degenerative uptake with changes of left wrist, minimal uptake in the lower cervical spine, increased uptake in the forefeet bilaterally, there is a levosclerosis present without convincing evidence of metastasis .Discharge planning in progress pending final DC recommendations, clearance from neurology. Patient will be discharged home in a stable condition with guarded prognosis. Subacute rehab offered to patient, declined-refer to case management note. The impression and plan of care has been dictated as directed. : I performed a history and examination of this patient, discussed the same with the dictator. I agree with the dictator's note ,documented as a scribe. Any additional findings or plans will be noted. Patient Condition at Discharge: Stable Plan - Discharge Summary Discharge Rx Participant: No New Discharge Prescriptions: New Nicotine 21Mg/24Hr Patch [Habitrol] 1 patch TRANSDERM DAILY #30 patch predniSONE 10 mg PO DIRECTED #60 tab Fluconazole [Diflucan] 100 mg PO DAILY #7 tab Continue Gabapentin 800 mg PO TID Meloxicam [Mobic] 15 mg PO HS Meclizine [Antivert] 12.5 mg PO Q12H PRN PRN Reason: Vertigo tiZANidine [Zanaflex] 4 mg PO TID LORazepam [Ativan] 1 mg PO TID PRN PRN Reason: Anxiety Zonisamide [Zonegran] 100 - 200 mg PO HS PRN PRN Reason: Migraine Headache Methocarbamol [Robaxin] 750 mg PO TID Potassium Chloride [Klor-Con 20] 20 meq PO BID Dextroamphetamine/Amphetamine [Adderall] 30 mg PO BID DULoxetine HCL [Cymbalta] 30 mg PO HS DULoxetine HCL [Cymbalta] 60 mg PO HS Hydrocortisone [Cortef] 10 mg PO BID Morphine Sulfate ER [Ms Contin] 30 mg PO BID Omeprazole 20 mg PO BID Montelukast [Singulair] 10 mg PO DAILY Levothyroxine Sodium 125 mcg PO DAILY Albuterol Nebulized [Ventolin Nebulized] 2.5 mg INHALATION RT-QID PRN PRN Reason: Shortness Of Breath Morphine Sulfate ER [Ms Contin] 15 mg PO BID Meclizine HCl 12.5 mg PO BID PRN PRN Reason: Nausea Ondansetron HCl [Zofran] 4 mg PO Q8H PRN PRN Reason: nausea/vomiting Lacosamide [Vimpat] 100 mg PO BID traZODone HCL 100 mg PO HS Magnesium Oxide 400 mg PO DAILY Rizatriptan Benzoate [Maxalt] 10 mg PO DAILY PRN PRN Reason: Migraine Headache Fluticasone Propionate 220 Mcg [Flovent 220 Mcg Inhaler (Bulk)] 1 - 2 puff INHALATION RT-BID oxyCODONE HCL/ACETAMINOPHEN [Percocet 10-325 mg] 1 tab PO TID Discharge Medication List Gabapentin 800 mg PO TID 08/13/16 [History] LORazepam [Ativan] 1 mg PO TID PRN 05/21/17 [History] Meclizine [Antivert] 12.5 mg PO Q12H PRN 05/21/17 [History] Meloxicam [Mobic] 15 mg PO HS 05/21/17 [History] tiZANidine [Zanaflex] 4 mg PO TID 05/21/17 [History] Zonisamide [Zonegran] 100 - 200 mg PO HS PRN 10/15/17 [History] Methocarbamol [Robaxin] 750 mg PO TID 09/12/18 [History] Potassium Chloride [Klor-Con 20] 20 meq PO BID 09/30/18 [History] DULoxetine HCL [Cymbalta] 30 mg PO HS 11/13/18 [History] Dextroamphetamine/Amphetamine [Adderall] 30 mg PO BID 11/13/18 [History] DULoxetine HCL [Cymbalta] 60 mg PO HS 04/01/19 [History] Hydrocortisone [Cortef] 10 mg PO BID 04/01/19 [History] Morphine Sulfate ER [Ms Contin] 30 mg PO BID 04/01/19 [History] Albuterol Nebulized [Ventolin Nebulized] 2.5 mg INHALATION RT-QID PRN 12/03/19 [History] Fluticasone Propionate 220 Mcg [Flovent 220 Mcg Inhaler (Bulk)] 1 - 2 puff INHALATION RT-BID 12/03/19 [History] Lacosamide [Vimpat] 100 mg PO BID 12/03/19 [History] Levothyroxine Sodium 125 mcg PO DAILY 12/03/19 [History] Magnesium Oxide 400 mg PO DAILY 12/03/19 [History] Meclizine HCl 12.5 mg PO BID PRN 12/03/19 [History] Montelukast [Singulair] 10 mg PO DAILY 12/03/19 [History] Morphine Sulfate ER [Ms Contin] 15 mg PO BID 12/03/19 [History] Omeprazole 20 mg PO BID 12/03/19 [History] Ondansetron HCl [Zofran] 4 mg PO Q8H PRN 12/03/19 [History] Rizatriptan Benzoate [Maxalt] 10 mg PO DAILY PRN 12/03/19 [History] oxyCODONE HCL/ACETAMINOPHEN [Percocet 10-325 mg] 1 tab PO TID 12/03/19 [History] traZODone HCL 100 mg PO HS 12/03/19 [History] Fluconazole [Diflucan] 100 mg PO DAILY #7 tab 12/08/19 [Rx] Nicotine 21Mg/24Hr Patch [Habitrol] 1 patch TRANSDERM DAILY #30 patch 12/08/19 [Rx] predniSONE 10 mg PO DIRECTED #60 tab 12/08/19 [Rx] Follow up Appointment(s)/Referral(s): Jannette Palomino DO [Primary Care Provider] - 3 Days (Please call office to make hospital follow up appointment) Shantel Duque MD [Medical Doctor] - 1 Week (Please call office to make Hospital follow up ) Ulysses Olivera DO [Doctor of Osteopathic Medicine] - 1 Week (After completion of MRIs) Activity/Diet/Wound Care/Special Instructions: Pain management will be continued outpatient as per Dr. Duque . MRI lumbar spine OP as per neurolgy OP Petscan re adrenal mass No smoking.
[2019-12-08] MEDS ORDERED: diphenhydrAMINE 50 MG/ML 1 ML VIAL IVP SCH (16:00)
== END 2019-12-08 16:36 | disposition home or self-care (01) | DRG 59 ==
LOC: EC 15:55 → 6NMEDSUR 18:30 → OBSVTOIN 12-05 13:09
PROVIDERS: ADMIT Family Medicine; ATTEND Family Medicine
DX: G35 Multiple sclerosis (principal); D68.2 Hereditary deficiency of other clotting factors; E87.1 Hypo-osmolality and hyponatremia; M51.06 Intervertebral disc disorders with myelopathy, lumbar region; M47.16 Other spondylosis with myelopathy, lumbar region; G25.9 Extrapyramidal and movement disorder, unspecified; I50.9 Heart failure, unspecified; E27.9 Disorder of adrenal gland, unspecified; E07.9 Disorder of thyroid, unspecified; E66.9 Obesity, unspecified; E78.5 Hyperlipidemia, unspecified; F17.210 Nicotine dependence, cigarettes, uncomplicated; F32.9 Major depressive disorder, single episode, unspecified; F41.9 Anxiety disorder, unspecified; F90.9 Attention-deficit hyperactivity disorder, unspecified type; G43.909 Migraine, unspecified, not intractable, without status migrainosus; G47.33 Obstructive sleep apnea (adult) (pediatric); G89.29 Other chronic pain; H91.90 Unspecified hearing loss, unspecified ear; J44.9 Chronic obstructive pulmonary disease, unspecified; K21.9 Gastro-esophageal reflux disease without esophagitis; M43.16 Spondylolisthesis, lumbar region; M43.17 Spondylolisthesis, lumbosacral region; M48.061 Spinal stenosis, lumbar region without neurogenic claudication; M71.38 Other bursal cyst, other site; M79.7 Fibromyalgia; R32 Unspecified urinary incontinence; B37.9 Candidiasis, unspecified; E09.9 Drug or chemical induced diabetes mellitus without complications; T38.0X5A Adverse effect of glucocorticoids and synthetic analogues, initial encounter; M19.90 Unspecified osteoarthritis, unspecified site; K44.9 Diaphragmatic hernia without obstruction or gangrene; H40.9 Unspecified glaucoma; H93.13 Tinnitus, bilateral; L71.9 Rosacea, unspecified; G47.00 Insomnia, unspecified; Z15.89 Genetic susceptibility to other disease; Z68.38 Body mass index [BMI] 38.0-38.9, adult; Z79.51 Long term (current) use of inhaled steroids; Z79.890 Hormone replacement therapy; Z79.899 Other long term (current) drug therapy; Z88.1 Allergy status to other antibiotic agents; Z88.2 Allergy status to sulfonamides; Z88.8 Allergy status to other drugs, medicaments and biological substances; Z87.01 Personal history of pneumonia (recurrent); Z87.440 Personal history of urinary (tract) infections; Z86.010 Personal history of colon polyps; Z86.718 Personal history of other venous thrombosis and embolism; Z98.51 Tubal ligation status; Z80.49 Family history of malignant neoplasm of other genital organs; Z82.49 Family history of ischemic heart disease and other diseases of the circulatory system
CPT/HCPCS: 36415; 51702; 51798; 70450; 72125; 72128; 72131; 78306; 80048; 80053; 81003; 85025; 85610; 85730; 93005; 94640; 96361; 96374; 99285

== ENCOUNTER 2019-12-25 08:46 | Day surgery (SDC) | payer MEDICARE, OTHER ==
[~2019-12-25 08:46] MED LIST changes: -DEXAMETHASONE SOD PHOSPHATE 10 MG/ML 1 ML VIAL IV ONE; -DEXAMETHASONE SOD PHOSPHATE 4 MG/ML 1 ML VIAL IV ONE; -FAMOTIDINE 20 MG/2 ML VIAL IV ONE; -HYDROmorphone 0.5 MG/0.5 ML SYRINGE IVP PRN; -LACTATED RINGERS 1,000 ML IV SCH; -LIDOCAINE 1% 20 ML VIAL (10MG/ML) FOR IV START INTRADERMA PRN; -ONDANSETRON 4 MG/2 ML VIAL IVP ONE; +PREMYELOGRAM MEDICATION REVIEW 1 EACH MISC PO PRN; -SCOPOLAMINE 1.5MG/72HR PATCH TRANSDERM ONE
[2019-12-25 09:05] VITALS: TEMP 99.5
[2019-12-25] MEDS ORDERED: DIAZEPAM 5 MG TAB PO STA (09:07)
[2019-12-25 09:37] LABS: Mean Platelet Volume 7.6; Platelet Count 324 k/uL (150-450)
[2019-12-25 10:24] LABS: INR 0.9 (<1.2); Prothrombin Time 9.8 sec (9.0-12.0)
[2019-12-25] MEDS ORDERED: HYDROmorphone 0.5 MG/0.5 ML SYRINGE IVP STA (11:47)
[2019-12-25] MEDS ORDERED: ONDANSETRON 4 MG/2 ML VIAL IVP STA (11:47)
[2019-12-25 14:57] VITALS: BP 128/76; PULSE 98; RESP 18
--- NOTE | 2019-12-26 16:44 | FL ---
PROCEDURE: Fluoroscopic lumbar myelogram injection DATE: 12/25/2019 CLINICAL HISTORY: 49 year-old female acute transverse myelitis and history of MS COMPLICATIONS: None Total fluoroscopy time: 1 minute 3 seconds. Total images: 11 SEDATION: Per nursing. The patient and the patient's vital signs were monitored by qualified independent radio logy personnel. TECHNIQUE: The procedure and potential risks were explained to patient and an informed consent was obtained with teach back. Site and side was verified. A time out was performed. The patient was placed prone on the fluoroscopy table and the L3-L4 level was localized and the skin was marked and was prepped and draped in the usual sterile fashion. Lidocaine was used for local anesthesia. Utilizing fluoroscopic guidance a long 20-gauge spinal needl e was placed through the skin and into the subarachnoid space. After visualization of clear CSF, 10 mL of Isovue-200 M was injected intrathecally. Satisfactory flow of contrast is seen into the subarachnoid space. A prominent right-sided extradural defect is noted at the L4-L5 level. The patient tolerated the procedure well and was sent to CT in satisfactory condition. The estimated blood loss was minimal. The patient's condition was unchanged following the procedure. IMPRESSION: Successful intrathecal contrast administration for CT lumbar myelogram. Large right lateral extradura l defect noted at L4-L5.
--- NOTE | 2019-12-26 18:43 | CT ---
EXAMINATION TYPE: CT lumbar myelogram DATE OF EXAM: 12/25/2019 COMPARISON: 12/03/2019 HISTORY: 49-year-old female Acute transverse myelitis. TECHNIQUE: Contiguous axial scanning of the lumbar spine after intrathecal injection of 10 mL of Isov ue M200. Coronal and sagittal reconstructions performed. CT DLP: 1559.8 mGycm Automated exposure control for dose reduction was used. FINDINGS: Vertebral body heights are preserved. Hypertrophic facet arthropathy lower lumbar spine. On the current exam, trace grade 1 anterolisthesis demonstrated at L4-L5 and L5-S1. Redemonstrated abnormal density along the right lateral recess of L4-L5 adjacent to and possibly cont iguous with the degenerative right L4-L5 facet joint. This measures approximately 1.3 cm causing mode rate spinal canal stenosis and right lateral recess effacement. Some associated hyperdensity and vacu um is demonstrated along with vacuum in the adjacent facet joint. L4-L5 shows mild diffuse disc bulge. No additional focal disc herniation or spinal canal stenosis at the additional levels. Conus medullaris is normal. On the left, there is moderate neural foraminal stenosis at L4-L5 and L5-S1. On the right, moderate neuroforaminal stenosis at L4-L5 and L5-S1. Cholecystectomy clips. 3.2 x 2.7 cm left adrenal mass. IMPRESSION: 1. HYPERTROPHIC FACET ARTHROPATHY LOWER LUMBAR SPINE WITH TRACE GRADE 1 ANTEROLISTHESIS AT L4-L5 AND L5-S1 NOW APPARENT ON THE PRESENT EXAM. 2. REDEMONSTRATED 1.3 CM DENSITY EFFACING THE RIGHT LATERAL RECESS AT L4-L5. DIFFERENTIAL CONSIDERATI ONS ARE SIMILAR-- AN EXTRUDED AND SEQUESTERED DISC FRAGMENT GIVEN SOME ASSOCIATED HYPERDENSITY VERSUS A SYNOVIAL CYST GIVEN SOME VACUUM WHICH IS ALSO PRESENT WITHIN THE ADJACENT DEGENERATIVE FACET JOINT . 3. THIS CAUSES RIGHT LATERAL RECESS STENOSIS AND MODERATE OVERALL SPINAL CANAL STENOSIS AT L4-L5. IT ACCOUNTS FOR THE LARGE EXTRADURAL DEFECT NOTED ON THE MYELOGRAM IMAGES. 4. ADDITIONAL MODERATE BILATERAL NEURAL FORAMINAL STENOSES AT L4-L5 AND L5-S1. 5. A 3.2 X 2.7 CM ABNORMAL LEFT ADRENAL MASS.
== END 2019-12-25 15:08 | disposition home or self-care (01) ==
LOC: RADPROMAIN 08:46
PROVIDERS: ATTEND Family Medicine
DX: G37.3 Acute transverse myelitis in demyelinating disease of central nervous system (principal); M48.061 Spinal stenosis, lumbar region without neurogenic claudication; M43.16 Spondylolisthesis, lumbar region; M51.36 Other intervertebral disc degeneration, lumbar region; E27.9 Disorder of adrenal gland, unspecified; G89.29 Other chronic pain; G25.81 Restless legs syndrome; D49.7 Neoplasm of unspecified behavior of endocrine glands and other parts of nervous system; E27.40 Unspecified adrenocortical insufficiency; Z90.49 Acquired absence of other specified parts of digestive tract; Z79.890 Hormone replacement therapy; Z79.891 Long term (current) use of opiate analgesic; Z79.899 Other long term (current) drug therapy; Z88.8 Allergy status to other drugs, medicaments and biological substances
CPT/HCPCS: 85049; 85610; 36415; 62304; 72132; J2405; J1170; Q9966

== ENCOUNTER → 2019-12-26 | Outpatient (CLI) | payer MEDICARE, OTHER ==
--- NOTE | 2019-12-29 10:06 | PE ---
Nuclear medicine PET/CT HISTORY: Adrenal carcinoma, initial Patient received 12.7 mCi F-18 FDG intravenously in delayed scanning was performed from the skull bas e to the mid thighs. Localization and attenuation correction CT scan was performed. Correlation to prior chest CT 04/01/2019, CT scan lumbar spine 12/03/2019, lumbar MRI 09/19/2018, CT chest 02/16/2017 Neck and chest: There is no suspicious hypermetabolic uptake present. There is no mediastinal, axilla ry, hilar adenopathy. No supraclavicular or cervical adenopathy. There is no evident lung mass. No pl eural or pericardial effusion. ABDOMEN: Left adrenal mass at the inferior margin is present measuring 3.3 x 2.4 cm. There is no asso ciated hypermetabolic uptake. No retroperitoneal adenopathy. Atheromatous changes are present in the aortoiliac distribution. Patient is post cholecystectomy. Surgical clips are present in the right upp er quadrant and also at the anterior margin of the colon at this level. Prominence of the second and third portion of the duodenum is indeterminate. Possible underlying duodenal diverticulum. There is n o ascites. Large lipoma present involving the musculature of the proximal thigh on the left medially. Osseous structures are unremarkable. There is a probe present coursing through the foramen on the rig ht sacrum, generator is in the right gluteal region. No suspicious hypermetabolic uptake. IMPRESSION: Left adrenal mass as described. Dedicated adrenal MRI or CT may be of benefit to assess f or possible adenoma. Additional findings above.
== END | disposition home or self-care (01) ==
LOC: RADPETMAIN 09:16
PROVIDERS: ATTEND Family Medicine
DX: E27.9 Disorder of adrenal gland, unspecified (principal)
CPT/HCPCS: 78815; A9552

== ENCOUNTER → 2020-01-07 | Outpatient (CLI) | payer MEDICARE, OTHER ==
--- NOTE | 2020-01-07 11:54 | XR ---
EXAMINATION TYPE: XR chest 2V DATE OF EXAM: 01/07/2020 COMPARISON: April 02, 2019 HISTORY: Chest pain TECHNIQUE: Frontal and lateral views of the chest are obtained. FINDINGS: There is no focal air space opacity. No evidence for pneumothorax. No pleural effusion. The cardiac silhouette size is within normal limits. The osseous structures are grossly intact. IMPRESSION: 1. No acute cardiopulmonary process.
[2020-01-07 11:55] LABS: Anisocytosis Slight; Basophils # (A) 0.1 k/uL (0-0.2); Basophils % (A) 0 %; Eosinophils # (A) 0.2 k/uL (0-0.7); Eosinophils % (A) 1 %; HCT 46.7 % (34.0-46.0); HGB 14.8 gm/dL (11.4-16.0); Hypochromasia Moderate; Lymphocytes # (A) 2.9 k/uL (1.0-4.8); Lymphocytes % (A) 19 %; MCH 26.3 pg (25.0-35.0); MCHC 31.7 g/dL (31.0-37.0); MCV 83.2 fL (80.0-100.0); Mean Platelet Volume 7.3; Monocytes # (A) 0.6 k/uL (0-1.0); Monocytes % (A) 4 %; Neutrophils # (A) 11.1 k/uL (1.3-7.7); Neutrophils % (A) 74 %; Platelet Count 258 k/uL (150-450); RBC 5.61 m/uL (3.80-5.40); RDW 17.6 % (11.5-15.5); WBC 15.1 k/uL (3.8-10.6)
[2020-01-07 12:07] LABS: ALT 33 U/L (4-34); AST 25 U/L (14-36); African American GFR (CKD) >90 (>60 ml/min/1.73 sqM); Albumin 4.4 g/dL (3.5-5.0); Alkaline Phosphatase 70 U/L (38-126); Anion Gap 6 mmol/L; Blood Urea Nitrogen 20 mg/dL (7-17); Calcium 9.3 mg/dL (8.4-10.2); Carbon Dioxide 34 mmol/L (22-30); Chloride 96 mmol/L (98-107); Glucose 137 mg/dL (74-99); Non-African American GFR(CKD) >90 (>60 ml/min/1.73 sqM); Sodium 136 mmol/L (137-145); Total Bilirubin 0.6 mg/dL (0.2-1.3); Total Protein 6.8 g/dL (6.3-8.2)
[2020-01-07 12:12] LABS: INR 0.9 (<1.2); Partial Thromboplastin Time 25.4 sec (22.0-30.0); Prothrombin Time 9.4 sec (9.0-12.0)
== END | disposition home or self-care (01) ==
LOC: LABPAT 10:24
PROVIDERS: ATTEND Orthopaedic Surgery Orthopaedic Surgery of the Spine
DX: Z01.818 Encounter for other preprocedural examination (principal); Z11.59 Encounter for screening for other viral diseases
CPT/HCPCS: 36415; 71046; 80053; 85025; 85610; 85730; 87635

== ENCOUNTER → 2020-01-07 | Outpatient (CLI) | payer MEDICARE, OTHER ==
[2020-01-07 17:24] LABS: Hemoglobin A1C 6.9 % (4.0-6.0)
== END | disposition home or self-care (01) ==
LOC: LABWHC1 11:03
PROVIDERS: ATTEND Psychiatry & Neurology Pain Medicine
DX: G35 Multiple sclerosis (principal); Z51.81 Encounter for therapeutic drug level monitoring; Z79.899 Other long term (current) drug therapy
CPT/HCPCS: 36415; 83036; 85652; 86140

== ENCOUNTER 2020-01-09 12:23 | Observation (INO) | payer MEDICARE, OTHER ==
[2020-01-08 11:11] VITALS: BMI 39.5
[~2020-01-09 12:23] MED LIST changes: +LIDOCAINE 1% (10MG/ML) FOR IV START INTRADERMA PRN; +ONDANSETRON 4 MG/2 ML VIAL IVP ONE; -PREMYELOGRAM MEDICATION REVIEW 1 EACH MISC PO PRN
[2020-01-09] MEDS: LACTATED RINGERS 1,000 ML IV SCH (12:59)
[2020-01-09 13:16] LABS: Glucose,Whole Blood 135 mg/dL (75-99)
[2020-01-09] MEDS ORDERED: GLYCOPYRROLATE 0.2 MG/ML 2 ML VIAL ONE (14:00)
[2020-01-09] MEDS ORDERED: HYDROmorphone (PF) 1 MG/ML ONE (14:00)
[2020-01-09] MEDS ORDERED: KETAMINE 10 MG/ML 20 ML VIAL ONE (14:00)
[2020-01-09] MEDS ORDERED: NEOSTIGMINE 1 MG/ML 10 ML VIAL ONE (14:00)
[2020-01-09] MEDS ORDERED: ROCURONIUM BROMIDE 10 MG/ML 5 ML VIAL IV ONE (14:00)
[2020-01-09] MEDS ORDERED: HYDROCORTISONE SUCCINATE 100 MG/2 ML VIAL ONE (14:00)
[2020-01-09] MEDS ORDERED: fentaNYL (PF) 50 MCG/ML 2 ML AMP ONE (14:00)
[2020-01-09] MEDS ORDERED: diphenhydrAMINE 50 MG/ML 1 ML VIAL ONE (14:00)
[2020-01-09] MEDS ORDERED: PROPOFOL 10 MG/ML 20 ML VIAL IV ONE (14:00)
[2020-01-09] MEDS ORDERED: SUCCINYLCHOLINE CHLORIDE 100 MG/5 ML SYR IV ONE (14:00)
[2020-01-09] MEDS ORDERED: LIDOCAINE 1% INJ 10MG/ML (20 ML MDV) ONE (14:00)
[2020-01-09] MEDS ORDERED: MIDAZOLAM 2 MG/2 ML VIAL IV ONE (14:01)
[2020-01-09] MEDS ORDERED: LIDOCAINE 0.5%-EPI 1:200,000 50 ML VIAL SQ ONE ×2 (14:14)
[2020-01-09] MEDS ORDERED: methylPREDNISolone ACETATE 80 MG/ML 1 ML VIAL INJ ONE ×2 (14:14→15:28)
[2020-01-09] MEDS ORDERED: GELATIN SPONGE,ABSORB (LARGE) 1 EACH SPONGE TOPICAL ONE (14:14)
[2020-01-09] MEDS ORDERED: THROMBIN (BOVINE) 5,000 UNIT VIAL TOPICAL ONE (14:15)
[2020-01-09] MEDS ORDERED: LACTATED RINGERS 1,000 ML IV ONE (14:44)
--- NOTE | 2020-01-09 15:22 | XR ---
Fluoroscopy History: Lumbar laminectomy. Lumbar laminectomy. Dr. Olivera. 4 sec fluoro time. 1 image scanned.
[2020-01-09] MEDS ORDERED: HYDROmorphone 1 MG/ML 1 ML SYRINGE IVP PRN (15:58)
[2020-01-09] MEDS ORDERED: BENZOCAINE/MENTHOL LOZENG 1 EACH LOZENGE MUCOUS MEM PRN (15:58)
[2020-01-09] MEDS ORDERED: HYDROcodone/APAP 5-325MG 1 EACH TAB PO PRN (15:58)
[2020-01-09] MEDS ORDERED: ALBUTEROL NEBULIZED 2.5 MG/3 ML INHALATION PRN (15:59)
[2020-01-09] MEDS ORDERED: diphenhydrAMINE 50 MG CAP PO PRN (15:59)
[2020-01-09] MEDS ORDERED: ALBUTEROL HFA INHALER INHALATION PRN (15:59)
[2020-01-09] MEDS ORDERED: SUMAtriptan SUCCINATE 50 MG TAB PO PRN (15:59)
[2020-01-09] MEDS ORDERED: MECLIZINE 12.5 MG TAB PO PRN (15:59)
[2020-01-09] MEDS ORDERED: ONDANSETRON 4 MG TAB PO PRN (15:59)
[2020-01-09] MEDS ORDERED: traZODone HCL 100 MG TAB PO PRN (15:59)
[2020-01-09] MEDS ORDERED: ZONISAMIDE 100 MG CAP PO PRN (15:59)
[2020-01-09] MEDS ORDERED: LORazepam 1 MG TAB PO PRN (15:59)
[2020-01-09] MEDS ORDERED: FUROSEMIDE 20 MG TAB PO PRN (15:59)
--- NOTE | 2020-01-09 16:12 | P.OP ---
Date of Procedure: 01/09/20 Preoperative Diagnosis: Severe spinal stenosis L4 5, lower extremity weakness, difficulty ambulating, lower extremity radiculopathy, neurogenic claudication Postoperative Diagnosis: Same Anesthesia: GETA Pathology: none sent Condition: stable Disposition: PACU Description of Procedure: DESCRIPTION OF PROCEDURE(S): BRIEF OPERATIVE NOTE Preoperative Diagnosis: Severe spinal stenosis L4 5, lower extremity weakness, difficulty ambulating, lower extremity radiculopathy, neurogenic claudication Postoperative Diagnosis: Same with findings of a epidural mass presumed facet cyst at L4 5 on the right Procedure: Laminectomy and decompression bilaterally L4 5 Excision of epidural mass, presumed facet cyst L4 5 on the right Placement of interlaminar stabilizer (Coflex device) at L4 5 Use of fluoroscopic guidance Surgeon: Dr. Olivera Feed Mixer Helper: Keiry VIRGEN who is present throughout the entire the case persistence during positioning, dissection, exposure, visualization, and all crucial elements of the case as well as closure. Anesthesia: General anesthesia Estimated blood loss: Approximately 100 mL Complications: None apparent Components implanted: [employer] Coflex interlaminar stabilization device at L4 5 Specimen: Portions of epidural mass, presumed facet cyst L4 5 centimeters pathology Disposition: To recovery room in good stable condition. OPERATIVE INDICATIONS The patient has been having issues in their lower back and lower extremities. she had significant weakness at her lower extremities that occurred somewhat suddenly last month. She had significant workup as she has a history of MS and other medical issues as well as adrenal medical issues. He was uncertain as to the nature of the lower extremity weakness. She started on dedicated conservative treatment and is followed closely. She underwent further imaging including a CT myelogram of her lumbar spine. It showed significant severe stenosis at L4 5. The patient was having evidence of neurogenic claudication and spinal stenosis along with issues with lower extremity radiculopathy. the patient was having difficulty with her mobility and ambulation and had weakness at her lower extremity's bilaterally worse on the left than the right. The patient was found to have significant spinal stenosis which correlated with their low back and lower extremity symptoms. Further workup seem to indicate that her lumbar issues were playing a significant role in her weakness. Her other medical issues such as MS were being controlled with medication. The patient has been through conservative treatment. With their imaging, and the level of their stenosis and their propensity for the possibility of recurrent stenosis I felt that decompression with intralaminar stabilization would be a good benefit for the patient. with the patient's neurologic change we felt that there is some urgency to her procedure. We discussed various treatment o ptions including surgery, and the patient wishes to proceed with surgery We discussed the risk, patient's alternatives and benefits of surgery including but not limited to, risk of bleeding risk of infection, risk of need for further surgery, risk of decreased, loss of motion, loss of function, nerve damage, paralysis, heart attack, blindness and .We also discussed the fact that there is a current pandemic and we could not guarantee lack of exposure to the virus, and the patient understood. OPERATIVE SUMMARY After discussing all the risks, patient alternatives and benefits at length, the patient elected to proceed with surgical intervention, signed informed consent, and presented for their procedure. The patient was seen and examined in the preoperative holding area and the surgical site was marked. The patient was given antibiotics and brought to the operating room. The patient was sedated and intubated by anesthesia in standard fashion. The patient was positioned on to the operating room table in a prone position on the appropriate frame which was well-padded and well molded. We were careful to pad any bony prominences and pressure points. We were careful to maintain the patient's cervical spine and good neutral alignment and position throughout. The patient was prepped and draped in a normal standard fashion. An appropriate timeout and keystone protocol performed. We were able to proceed with the surgery. Fluoroscopy was utilized to establish the appropriate level. The local wound area was infiltrated with local anesthetic. An incision was made at the midline longitudinally over the appropriate levels At L4 5. Dissection was taken down subcutaneously to the level of the fascia which was split midline. Dissection was taken over the lamina. Intraoperative fluoroscopy was taken which showed a marker at the appropriate level Of L4 5. With the appropriate level positively confirmed, we were able to proceed with laminectomy. The wound was copiously irrigated and suctioned dry as had been done periodically throughout the case. I performed a laminectomy with a combination of curettes and a high-speed bur and Kerrison rongeurs. A small medial facetectomy was performed again further access. This was done bilaterally at that level. A partial foraminotomy was also performed. note was made of severe thickening of the ligamentum flavum over L4 5 . Portions of the ligamentum flavum were taken down to expose the dura and traversing nerve root. I was able to mobilize the traversing nerve root and gain access to the disc space. I did not note any specific disc herniation or extruded disc fragments. There was however an epidural mass at the right posterior lateral aspect of L4 5. It was pale white and fluid and soft tissue filled with the appearance of a facet cyst coming from the facet joint at L4 5. There is some adhesion to the dura. It was causing significant compression of the dura. I was able to mobilize the mass and remove significant portions to gain further decompression without disrupting the dura. This gave decompression. The masses presumed facet cyst and portions were sent to pathology for further evaluation. There is no evidence of dural tear or leak. Good hemostasis maintained. The wound was copiously irrigated and suctioned dry. Good decompression was noted. At this point further prepared the interspinous process and interlaminar space with a combination of curettes and a high-speed bur and Kerrison rongeurs. I felt we can get some added stability to the level with intralaminar stabiliz ation. As able get good parallel alignment at the interspinous process space and interlaminar space. I used a trial spacer for the Coflex device and have good fit and fill with the appropriate size device. I had to shave down the spinous process at to allow for appropriate positioning of the Coflex device. The device was prepared and then positioned and malleted in position with good alignment and good position and good bony purchase at the interlaminar space. The position was checked and found to be approximately 3 mm away from the dura without impingement on the dura itself. It was checked and found to be stable. Intraoperative C-arm was utilized to confirm the alignment and position at the appropriate levels. We were able to proceed with closure. The fascia was closed for a watertight closure. The subcuticular tissue was closed with absorbable suture. The wound was cleaned and dried and dressed with the appropriate dressing. The drapes were broken down. The patient was gently rolled back onto their hospital bed being careful to maintain their cervical spine and good neutral alignment and position. They were woken up by anesthesia, extubated, and brought to the [facility] very room in good stable condition. The patient will be admitted to the hospital for observation and for appropriate postoperative care, medical management and monitoring. We will continue to follow them closely about the postoperative course.
[2020-01-09] MEDS ORDERED: oxyCODONE-APAP 10-325MG 1 EACH TAB PO PRN (16:14)
[2020-01-09] MEDS ORDERED: ALBUTEROL NEBULIZED 2.5 MG/3 ML INHALATION ONE (16:35)
[2020-01-09] MEDS: HYDROmorphone 0.5 MG/0.5 ML SYRINGE IVP PRN ×6 (16:52→20:49)
[2020-01-09] MEDS: SODIUM CHLORIDE 0.9% 1,000 ML IV SCH (17:01)
[2020-01-09] MEDS: METHOCARBAMOL 750 MG TAB PO SCH ×2 (18:23→22:23)
[2020-01-09] MEDS: GABAPENTIN 400 MG CAP PO SCH ×2 (18:24→22:24)
[2020-01-09] MEDS: PANTOPRAZOLE 40 MG TABLET PO SCH (18:25)
[2020-01-09] MEDS: POTASSIUM CHLORIDE ER 20 MEQ TAB.ER PO SCH (20:50)
[2020-01-09] MEDS: LACOSAMIDE 50 MG TABLET PO SCH (20:50)
[2020-01-09] MEDS: HYDROCORTISONE 10 MG TAB PO SCH (20:51)
[2020-01-09] MEDS ORDERED: MAGNESIUM OXIDE 400 MG TAB PO SCH (21:00)
[2020-01-09] MEDS ORDERED: DULoxetine HCL 30 MG CAPSULE.DR PO SCH (21:00)
[2020-01-09] MEDS ORDERED: DULoxetine HCL 60 MG CAPSULE.DR PO SCH (21:00)
[2020-01-09] MEDS ORDERED: NON FORMULARY DRUG (Dextroamphetamine/Amphetamine [Adderall] 30 MG) PO SCH (21:00)
[2020-01-09] MEDS: NICOTINE 14MG/24HR PATCH TRANSDERM SCH (22:23)
[2020-01-09] MEDS: HYDROcodone/APAP 5-325MG 1 EACH TAB PO PRN (22:25)
[2020-01-10] MEDS: KETOROLAC 30 MG/ML 1 ML VIAL IVP PRN ×2 (01:33→08:09)
[2020-01-10] MEDS: HYDROcodone/APAP 5-325MG 1 EACH TAB PO PRN (04:42)
[2020-01-10] MEDS: SODIUM CHLORIDE 0.9% 1,000 ML IV SCH (05:50)
[2020-01-10 05:52] VITALS: BP 121/77; PULSE 97; RESP 22; TEMP 97.6
[2020-01-10] MEDS: HYDROmorphone 0.5 MG/0.5 ML SYRINGE IVP PRN (05:56)
[2020-01-10] MEDS: LACTATED RINGERS 1,000 ML IV SCH (06:04)
[2020-01-10] MEDS ORDERED: LEVOTHYROXINE 125 MCG TAB PO SCH (06:30)
--- NOTE | 2020-01-10 07:57 | P.DS ---
Providers Date of admission: 01/10/20 02:21 Attending physician: Ulysses Olivera Primary care physician: Richy Palomino MD Hospital Course: The patient presented on the day of admission as per their operative note. she had significant weakness and pain in her back and lower extremities due to severe stenosis at L4 5.she has significant history of MS and adrenal issues in the past. These had to be evaluated and ruled out in terms of her lower extremity symptoms. Once it was determined that the stenosis was the primary was of her symptoms we proceeded with further intervention and her surgery as per her operative note. The patient's postoperative day 1 and is very happy with results thus far. She says her legs are significantly better. She says her pain is changed. She has pain around her surgical site. But she is able to walk better already. Physical Exam The incision site is clean dry and intact. There is no erythema no drainage. There is no purulence no evidence of infection.there is no active bleeding Abdomen soft and nontender. Chest has good excursion with deep inspiration and expiration. The patient has active and passive range of motion intact at the upper and lower extremities. There is no acute worseningchange in neurologic status. she has sustained dorsal flexion plantarflexion and EHL intact. she is able to lift her legs up off the bed independently. Her strength appears to have made some improvement. Hospital Course postoperative day #1 status post laminectomy decompression L4 5 with excision of epidural mass, likely facet cyst Improved lower extremity radiculopathy Improved pain The patient has been making good progress postoperatively. She is very happy with results thus far.They have completed the prophylactic antibiotics without any signs or symptoms of infection. The patient has been able to advance their diet, and is tolerating diet adequately. The pain was initially controlled with IV medications and is now controlled appropriately with oral medications. The patient has been able to increase their mobilization.she is able to walk to the bathroom on her own and void freely. The patient has progressed appropriately. I think they are in good stable condition for discharge today. They will be sent home with appropriate prescriptions. I answered their questions to the best of my ability in a language that they can understand and they are agreeable with the plan. she will continue her other management for medical issues. They will follow up as directedin approximately 2 weeks or sooner if she is having problems. Patient Condition at Discharge: Good Plan - Discharge Summary Discharge Rx Participant: Yes New Discharge Prescriptions: New oxyCODONE HCL/ACETAMINOPHEN [Percocet 10-325 mg] 1 tab PO Q6HR PRN #28 tab PRN Reason: Pain No Action Gabapentin 800 mg PO TID Meloxicam [Mobic] 15 mg PO HS tiZANidine [Zanaflex] 4 mg PO TID PRN PRN Reason: Spasms LORazepam [Ativan] 1 mg PO TID PRN PRN Reason: Anxiety Zonisamide [Zonegran] 200 mg PO HS PRN PRN Reason: Migraine Headache Methocarbamol [Robaxin] 750 mg PO TID Potassium Chloride [Klor-Con 20] 20 meq PO BID Dextroamphetamine/Amphetamine [Adderall] 30 mg PO BID DULoxetine HCL [Cymbalta] 30 mg PO HS DULoxetine HCL [Cymbalta] 60 mg PO HS Hydrocortisone [Cortef] 10 mg PO BID Morphine Sulfate ER [Ms Contin] 60 mg PO BID Omeprazole 40 mg PO BID Levothyroxine Sodium 125 mcg PO DAILY Albuterol Nebulized [Ventolin Nebulized] 2.5 mg INHALATION RT-QID PRN PRN Reason: Shortness Of Breath Meclizine HCl 12.5 mg PO BID PRN PRN Reason: Vertigo Ondansetron HCl [Zofran] 4 mg PO Q8H PRN PRN Reason: nausea/vomiting Lacosamide [Vimpat] 100 mg PO BID traZODone HCL 100 mg PO HS PRN PRN Reason: Insomnia Magnesium Oxide 400 mg PO HS Rizatriptan Benzoate [Maxalt] 10 mg PO DAILY PRN PRN Reason: Migraine Headache oxyCODONE HCL/ACETAMINOPHEN [Percocet 10-325 mg] 1 tab PO Q6HR PRN PRN Reason: Pain Nicotine 21Mg/24Hr Patch [Habitrol] 1 patch TRANSDERM DAILY #30 patch Furosemide [Lasix] 20 mg PO BID PRN PRN Reason: Edema diphenhydrAMINE [Benadryl] 50 mg PO BID PRN PRN Reason: TAKES WITH STEROIDS Apixaban [Eliquis] 5 mg PO BID rOPINIRole HCL [Requip] 0.5 mg PO BID Albuterol Inhaler [Ventolin Hfa Inhaler] 2 puff INHALATION RT-QID PRN PRN Reason: Shortness Of Breath predniSONE 10 mg PO DAILY Montelukast [Singulair] 10 mg PO DAILY Fluconazole [Diflucan] 100 mg PO DAILY Discharge Medication List Gabapentin 800 mg PO TID 08/13/16 [History] LORazepam [Ativan] 1 mg PO TID PRN 05/21/17 [History] Meloxicam [Mobic] 15 mg PO HS 05/21/17 [History] tiZANidine [Zanaflex] 4 mg PO TID PRN 05/21/17 [History] Zonisamide [Zonegran] 200 mg PO HS PRN 10/15/17 [History] Methocarbamol [Robaxin] 750 mg PO TID 09/12/18 [History] Potassium Chloride [Klor-Con 20] 20 meq PO BID 09/30/18 [History] DULoxetine HCL [Cymbalta] 30 mg PO HS 11/13/18 [History] Dextroamphetamine/Amphetamine [Adderall] 30 mg PO BID 11/13/18 [History] DULoxetine HCL [Cymbalta] 60 mg PO HS 04/01/19 [History] Hydrocortisone [Cortef] 10 mg PO BID 04/01/19 [History] Morphine Sulfate ER [Ms Contin] 60 mg PO BID 04/01/19 [History] Albuterol Nebulized [Ventolin Nebulized] 2.5 mg INHALATION RT-QID PRN 12/03/19 [History] Lacosamide [Vimpat] 100 mg PO BID 12/03/19 [History] Levothyroxine Sodium 125 mcg PO DAILY 12/03/19 [History] Magnesium Oxide 400 mg PO HS 12/03/19 [History] Meclizine HCl 12.5 mg PO BID PRN 12/03/19 [History] Omeprazole 40 mg PO BID 12/03/19 [History] Ondansetron HCl [Zofran] 4 mg PO Q8H PRN 12/03/19 [History] Rizatriptan Benzoate [Maxalt] 10 mg PO DAILY PRN 12/03/19 [History] oxyCODONE HCL/ACETAMINOPHEN [Percocet 10-325 mg] 1 tab PO Q6HR PRN 12/03/19 [History] traZODone HCL 100 mg PO HS PRN 12/03/19 [History] Nicotine 21Mg/24Hr Patch [Habitrol] 1 patch TRANSDERM DAILY #30 patch 12/08/19 [Rx] Albuterol Inhaler [Ventolin Hfa Inhaler] 2 puff INHALATION RT-QID PRN 12/17/19 [History] Apixaban [Eliquis] 5 mg PO BID 12/17/19 [History] Furosemide [Lasix] 20 mg PO BID PRN 12/17/19 [History] diphenhydrAMINE [Benadryl] 50 mg PO BID PRN 12/17/19 [History] predniSONE 10 mg PO DAILY 12/17/19 [History] rOPINIRole HCL [Requip] 0.5 mg PO BID 12/17/19 [History] Fluconazole [Diflucan] 100 mg PO DAILY 01/08/20 [History] Montelukast [Singulair] 10 mg PO DAILY 01/08/20 [History] oxyCODONE HCL/ACETAMINOPHEN [Percocet 10-325 mg] 1 tab PO Q6HR PRN #28 tab 01/09/20 [Rx] Follow up Appointment(s)/Referral(s): Ulysses Olivera DO [Doctor of Osteopathic Medicine] - 2 Weeks Activity/Diet/Wound Care/Special Instructions: Keep site clean. May shower with waterproof Tegaderm intact. Do not soak in a tub. After 72 hours postoperatively, patient May remove dressing and then may shower with area uncovered. Leave Steri-Strips intact and allow them to fray off on their own. May ambulate as tolerated. Avoid heavy or rigorous activity. No repetitive bending twisting or lifting. No overhead work. I spoke with the pharmacy, the patient has pain medication at home already. Discharge Disposition: HOME SELF-CARE
[2020-01-10] MEDS: LACOSAMIDE 50 MG TABLET PO SCH (07:59)
[2020-01-10] MEDS: GABAPENTIN 400 MG CAP PO SCH (07:59)
[2020-01-10] MEDS: METHOCARBAMOL 750 MG TAB PO SCH (08:00)
[2020-01-10] MEDS: NICOTINE 14MG/24HR PATCH TRANSDERM SCH (08:00)
[2020-01-10] MEDS: POTASSIUM CHLORIDE ER 20 MEQ TAB.ER PO SCH (08:00)
[2020-01-10] MEDS: PANTOPRAZOLE 40 MG TABLET PO SCH (08:00)
[2020-01-10] MEDS: HYDROCORTISONE 10 MG TAB PO SCH (08:01)
[2020-01-10] MEDS ORDERED: SENNOSIDES-DOCUSATE SODIUM 1 EACH TAB PO SCH (09:00)
[2020-01-10] MEDS ORDERED: predniSONE 10 MG TAB PO SCH (09:00)
[2020-01-10] MEDS ORDERED: APIXABAN 5 MG TAB PO SCH (09:00)
[2020-01-10] MEDS ORDERED: FLUCONAZOLE 100 MG TAB PO SCH (09:00)
[2020-01-10] MEDS ORDERED: MONTELUKAST 10 MG TAB PO SCH (09:00)
== END 2020-01-10 10:50 | disposition home or self-care (01) ==
LOC: OR 12:23 → 5NMEDONC 16:04 → OR 01-10 03:00
PROVIDERS: ADMIT Orthopaedic Surgery Orthopaedic Surgery of the Spine; ATTEND Orthopaedic Surgery Orthopaedic Surgery of the Spine
DX: M48.062 Spinal stenosis, lumbar region with neurogenic claudication (principal); M51.17 Intervertebral disc disorders with radiculopathy, lumbosacral region; G96.19 Other disorders of meninges, not elsewhere classified; G96.12 Meningeal adhesions (cerebral) (spinal); G35 Multiple sclerosis; J44.9 Chronic obstructive pulmonary disease, unspecified; M19.90 Unspecified osteoarthritis, unspecified site; E03.9 Hypothyroidism, unspecified; H91.90 Unspecified hearing loss, unspecified ear; R51 Headache; F32.9 Major depressive disorder, single episode, unspecified; R45.0 Nervousness; H40.9 Unspecified glaucoma; I50.9 Heart failure, unspecified; E78.5 Hyperlipidemia, unspecified; H02.401 Unspecified ptosis of right eyelid; G47.33 Obstructive sleep apnea (adult) (pediatric); J45.909 Unspecified asthma, uncomplicated; F17.210 Nicotine dependence, cigarettes, uncomplicated; F98.8 Other specified behavioral and emotional disorders with onset usually occurring in childhood and adolescence; F41.9 Anxiety disorder, unspecified; M79.7 Fibromyalgia; G62.9 Polyneuropathy, unspecified; G56.00 Carpal tunnel syndrome, unspecified upper limb; K21.9 Gastro-esophageal reflux disease without esophagitis; K44.9 Diaphragmatic hernia without obstruction or gangrene; H46.9 Unspecified optic neuritis; D68.8 Other specified coagulation defects; E27.40 Unspecified adrenocortical insufficiency; E66.01 Morbid (severe) obesity due to excess calories; Z68.41 Body mass index [BMI] 40.0-44.9, adult; Z88.6 Allergy status to analgesic agent; Z88.8 Allergy status to other drugs, medicaments and biological substances; Z88.1 Allergy status to other antibiotic agents; Z88.2 Allergy status to sulfonamides; Z79.899 Other long term (current) drug therapy; Z79.891 Long term (current) use of opiate analgesic; Z79.1 Long term (current) use of non-steroidal anti-inflammatories (NSAID); Z79.890 Hormone replacement therapy; Z79.51 Long term (current) use of inhaled steroids; Z79.52 Long term (current) use of systemic steroids; Z79.01 Long term (current) use of anticoagulants; Z86.718 Personal history of other venous thrombosis and embolism; Z90.49 Acquired absence of other specified parts of digestive tract; Z98.890 Other specified postprocedural states; Z98.51 Tubal ligation status; Z97.3 Presence of spectacles and contact lenses; Z87.09 Personal history of other diseases of the respiratory system; Z87.898 Personal history of other specified conditions; Z83.3 Family history of diabetes mellitus; Z82.49 Family history of ischemic heart disease and other diseases of the circulatory system; Z83.2 Family history of diseases of the blood and blood-forming organs and certain disorders involving the immune mechanism
CPT/HCPCS: 22869; 22899; C1821; 72020; 81025; 86850; 86900; 86901; 88305; 88307; 88311

== ENCOUNTER 2020-02-02 12:08 | Inpatient (IN) | payer MEDICARE, OTHER ==
[~2020-02-02 12:08] MED LIST changes: -LIDOCAINE 1% (10MG/ML) FOR IV START INTRADERMA PRN; -ONDANSETRON 4 MG/2 ML VIAL IVP ONE; +Pre Op ABX Message 1 EACH MISC MISCELLANE ONE
[2020-02-02] MEDS ORDERED: LIDOCAINE 1% (10MG/ML) FOR IV START INTRADERMA ONE (12:42)
[2020-02-02] MEDS ORDERED: LACTATED RINGERS 1,000 ML IV ONE ×3 (12:43→14:50)
[2020-02-02] MEDS ORDERED: ONDANSETRON 4 MG/2 ML VIAL IVP ONE (12:45)
[2020-02-02] MEDS ORDERED: diphenhydrAMINE 50 MG/ML 1 ML VIAL IVP ONE (12:59)
[2020-02-02] MEDS ORDERED: HYDROCORTISONE SUCCINATE 100 MG/2 ML VIAL IV ONE (12:59)
[2020-02-02] MEDS ORDERED: GLYCOPYRROLATE 0.2 MG/ML 2 ML VIAL ONE (13:11)
[2020-02-02] MEDS ORDERED: SUCCINYLCHOLINE CHLORIDE 100 MG/5 ML SYR IV ONE (13:11)
[2020-02-02] MEDS ORDERED: VANCOMYCIN 1,000 MG VIAL ONE (13:11)
[2020-02-02] MEDS ORDERED: MIDAZOLAM 2 MG/2 ML VIAL ONE (13:11)
[2020-02-02] MEDS ORDERED: NEOSTIGMINE 1 MG/ML 10 ML VIAL ONE (13:11)
[2020-02-02] MEDS ORDERED: PHENYLEPHRINE-0.9% NACL SYG 1 MG/10 ML SYRINGE ONE (13:11)
[2020-02-02] MEDS ORDERED: PROPOFOL 10 MG/ML 20 ML VIAL IV ONE (13:11)
[2020-02-02] MEDS ORDERED: LIDOCAINE 1% INJ 10MG/ML (20 ML MDV) ONE (13:11)
[2020-02-02] MEDS ORDERED: ALBUTEROL INHALER 60 PUFF/8 GM INHALER (MHU) INHALATION ONE (13:11)
[2020-02-02] MEDS ORDERED: ROCURONIUM BROMIDE 10 MG/ML 5 ML VIAL IV ONE (13:11)
[2020-02-02] MEDS ORDERED: fentaNYL (PF) 50 MCG/ML 2 ML AMP ONE (13:11)
[2020-02-02] MEDS ORDERED: SODIUM CHLORIDE 0.9% 50 ML with ceFAZolin 2,000 MG IV ONE ×2 (13:16)
[2020-02-02 13:52] LABS: ALT 28 U/L (4-34); AST 51 U/L (14-36); African American GFR (CKD) >90 (>60 ml/min/1.73 sqM); Albumin 4.4 g/dL (3.5-5.0); Alkaline Phosphatase 97 U/L (38-126); Anion Gap 10 mmol/L; Blood Urea Nitrogen 20 mg/dL (7-17); Calcium 9.6 mg/dL (8.4-10.2); Carbon Dioxide 28 mmol/L (22-30); Chloride 98 mmol/L (98-107); Glucose 131 mg/dL (74-99); Non-African American GFR(CKD) >90 (>60 ml/min/1.73 sqM); Potassium 4.2 mmol/L (3.5-5.1); Sodium 136 mmol/L (137-145); Total Bilirubin 0.7 mg/dL (0.2-1.3)
[2020-02-02] MEDS ORDERED: ceFAZolin 3,000 MG in SODIUM CHLORIDE 0.9% IRRIGATIO 3,000 ML IRRIGATION ONE (13:53)
[2020-02-02] MEDS ORDERED: MAGNESIUM HYDROXIDE 2,400 MG/10 ML CUP PO PRN (14:12)
[2020-02-02] MEDS ORDERED: HYDROmorphone 0.5 MG/0.5 ML SYRINGE IVP PRN (14:12)
[2020-02-02] MEDS ORDERED: HYDROcodone/APAP 5-325MG 1 EACH TAB PO PRN (14:12)
[2020-02-02] MEDS ORDERED: traZODone HCL 100 MG TAB PO PRN (14:19)
[2020-02-02] MEDS ORDERED: MECLIZINE 12.5 MG TAB PO PRN (14:19)
[2020-02-02] MEDS ORDERED: ALBUTEROL NEBULIZED 2.5 MG/3 ML INHALATION PRN ×2 (14:19)
[2020-02-02] MEDS ORDERED: SUMAtriptan SUCCINATE 50 MG TAB PO PRN (14:19)
[2020-02-02] MEDS ORDERED: ZONISAMIDE 100 MG CAP PO PRN (14:19)
[2020-02-02] MEDS ORDERED: VANCOMYCIN IV PER PHARMACY 1 EACH MISC MISCELLANE PRN (14:41)
--- NOTE | 2020-02-02 14:41 | P.OP ---
Date of Procedure: 02/02/20 Preoperative Diagnosis: Lumbar spine wound seroma with persistent drainage Possible lumbar spine wound infection Recent history of laminectomy decompression with placement of Coflex device L4 5, done on 01/09/2020 Postoperative Diagnosis: Lumbar spine wound seroma with persistent drainage Possible lumbar spine wound infection Recent history of laminectomy decompression with placement of Coflex device L4 5, done on 01/09/2020 Anesthesia: GETA Pathology: other (Superficial and deep space wound cultures sent to microbiology) Condition: stable Disposition: PACU Description of Procedure: BRIEF OPERATIVE NOTE Preoperative Diagnosis:Lumbar spine wound seroma with persistent drainage Possible lumbar spine wound infection Recent history of laminectomy decompression with placement of Coflex device L4 5, done on 01/09/2020 Postoperative Diagnosis:Lumbar spine wound seroma with persistent drainage Possible lumbar spine wound infection Recent history of laminectomy decompression with placement of Coflex device L4 5, done on 01/09/2020 Displacement of interlaminar stabilizer at L4 5 Procedure: Open irrigation and debridement of superficial and deep lumbar spine wound L4 5 Removal of deep hardware at L4 5 Surgeon: Dr. Olivera [employer] Equipment Sales Manager: Jorge Mijares is present throughout the entire the case persistence during positioning, dissection, exposure, visualization, and all crucial elements of the case as well as closure. Anesthesia: General anesthesia Estimated blood loss: Approximately 50 mL Complications: None apparent Components implanted: No new components were implanted: We did remove a Coflex interlaminar stabilizer from L4 5 Disposition: To recovery room in good stable condition. OPERATIVE INDICATIONS The patient had recently undergone laminectomy decompression with a small interlaminar stabilizer at L4 5 which was provided by our service on 01/09/2020. She had had severe spinal stenosis with neurogenic claudication lower extremity radiculopathy and weakness. She underwent her surgical procedure next he was happy with how her back and legs were doing. She said she had significant improvement in her lower extremity is and was able to walk again. Despite her good improvement in her symptoms she was having persistent drainage at her lumbar spine wound. She was having serosanguineous drainage which we had seen i n the office and she had been treated with antibiotics. She'll continue to take her antibiotics though she unfortunate started somewhat late despite our prescription. We're able to see her again after she again reported to the emergency room with having more persistent drainage. We decided that it best course of action would reaches pursue open irrigation and debridement of her lumbar spine wound with closure. The patient has been through conservative treatment. We discussed various treatment options including surgery, and the patient wishes to proceed with surgery We discussed the risk, patient's alternatives and benefits of surgery including but not limited to, risk of bleeding risk of infection, risk of need for further surgery, risk of decreased, loss of motion, loss of function, nerve damage, paralysis, heart attack, blindness and . The patient now states that she her surgical sites from all of her surgery seemed to have infections for her. OPERATIVE SUMMARY After discussing all the risks, patient alternatives and benefits at length, the patient elected to proceed with surgical intervention, signed informed consent, and presented for their procedure. The patient was seen and examined in the preoperative holding area and the surgical site was marked. The patient was given antibiotics and brought to the operating room. The patient was sedated and intubated by anesthesia in standard fashion. The patient was positioned on to the operating room table in a prone position on the appropriate frame which was well-padded and well molded. We were careful to pad any bony prominences and pressure points. We were careful to maintain the patient's cervical spine and good neutral alignment and position throughout. The patient was prepped and draped in a normal standard fashion. An appropriate timeout and keystone protocol performed. We were able to proceed with the surgery. Utilizing the prior surgical incision is able to make an incision of the midline over L4 5. Upon opening the incision that was easy to dehisce and there was significant amount of fluid. Fluid was yellowish creamy white fluid. We took superficial cultures of the fluid. We explored further and the fascia was disrupted and we took further deep cultures as well to the epidural space. The fascial layer was disrupted and the sutures are removed. The Coflex device at L4 5 was obviously loose and was removed. Portion of the spinous process of L4 had fractured and this was removed as well. There is severe amounts of denuded tissue and liquefaction necrosis of fat. There was granular tissue over all the surfaces. We did a debridement extensively with Huerta curettes and Bovie. As able to remove the devascularized and denuded tissue. All the granulation tissue was debrided off. I removed the area over the epidural space as well. There appeared to be good decompression at L4 5 without any evidence of recurrent stenosis. There is no evidence of any dural tear or leak. It did not seem that there would be any way to appropriately place and interlaminar stabilizer and we left the stabilizer out. There appeared to be adequate decompression at the area and no further standing fluid. There is no obvious further fluid collection. Good hemostasis maintained there is no evidence of any dural tear or leak. The wound was copiously irrigated and suctioned dry with 3 L of antibiotic Keflex solution. We were able to proceed with closure. The fascia was closed for a watertight closure using #1 PDS. The subcutaneous and subcuticular tissue were closed with 2-0 PDS and the skin was closed with nery. The wound was cleaned and dried and dressed with the appropriate dressing. The drapes were broken down. The patient was gently rolled back onto their hospital bed being careful to maintain their cervical spine and good neutral alignment and position. They were woken up by anesthesia, extubated, and brought to the recovery room in good stable condition. The patient will be admitted to the hospital for observation and for appropriate postoperative care, medical management and monitoring. We will have her seen by her primary care physician as well as with infectious disease specialist and we will await further cultures. We will continue with her antibiotics as well. We will continue to follow them closely about the postoperative course.
[2020-02-02] MEDS ORDERED: HYDROmorphone 1 MG/ML 1 ML SYRINGE IVP ONE (14:51)
[2020-02-02] MEDS ORDERED: HYDROmorphone 0.5 MG/0.5 ML SYRINGE IVP ONE ×2 (15:01→15:06)
[2020-02-02] MEDS ORDERED: fentaNYL (PF) 50 MCG/ML 2 ML AMP IVP ONE ×4 (15:12→16:20)
[2020-02-02] MEDS: SODIUM CHLORIDE 0.9% 1,000 ML IV SCH (17:39)
[2020-02-02] MEDS: oxyCODONE-APAP 10-325MG 1 EACH TAB PO PRN (17:39)
[2020-02-02] MEDS: ONDANSETRON 4 MG TAB PO PRN (17:40)
[2020-02-02] MEDS: HYDROmorphone 1 MG/ML 1 ML SYRINGE IVP PRN ×2 (17:41→21:32)
[2020-02-02] MEDS: GABAPENTIN 400 MG CAP PO SCH ×2 (17:56→21:24)
[2020-02-02] MEDS: METHOCARBAMOL 750 MG TAB PO SCH ×2 (17:56→21:14)
[2020-02-02] MEDS: PANTOPRAZOLE 40 MG TABLET PO SCH (17:56)
[2020-02-02] MEDS: VANCOMYCIN 1,750 MG in SODIUM CHLORIDE 0.9% 500 ML 500 ML IVPB SCH (17:58)
[2020-02-02] MEDS: HYDROcodone/APAP 5-325MG 1 EACH TAB PO PRN (19:36)
[2020-02-02] MEDS: tiZANidine 4 MG TAB PO PRN (19:37)
[2020-02-02] MEDS ORDERED: DULoxetine HCL 60 MG CAPSULE.DR PO SCH (21:00)
[2020-02-02] MEDS ORDERED: NON FORMULARY DRUG (Dextroamphetamine/Amphetamine [Adderall] 30 MG) PO SCH (21:00)
[2020-02-02] MEDS: APIXABAN 5 MG TAB PO SCH (21:14)
[2020-02-02] MEDS: HYDROCORTISONE 10 MG TAB PO SCH (21:14)
[2020-02-02] MEDS: MONTELUKAST 10 MG TAB PO SCH (21:14)
[2020-02-02] MEDS: POTASSIUM CHLORIDE ER 20 MEQ TAB.ER PO SCH (21:14)
[2020-02-02] MEDS: MELOXICAM 7.5 MG TAB PO SCH (21:14)
[2020-02-02] MEDS: LACOSAMIDE 50 MG TABLET PO SCH (21:15)
[2020-02-02] MEDS: MAGNESIUM OXIDE 400 MG TAB PO SCH (21:15)
[2020-02-02] MEDS: DULoxetine HCL 30 MG CAPSULE.DR PO SCH (21:15)
[2020-02-02] MEDS: MORPHINE SULFATE ER 30 MG TABLET PO SCH (21:15)
[2020-02-02] MEDS: LORazepam 1 MG TAB PO PRN (21:24)
[2020-02-03] MEDS: HYDROmorphone 1 MG/ML 1 ML SYRINGE IVP PRN ×6 (01:54→22:45)
[2020-02-03] MEDS: oxyCODONE-APAP 10-325MG 1 EACH TAB PO PRN ×4 (04:03→22:38)
[2020-02-03] MEDS: tiZANidine 4 MG TAB PO PRN ×3 (04:04→20:17)
[2020-02-03] MEDS: SODIUM CHLORIDE 0.9% 1,000 ML IV SCH (05:15)
[2020-02-03] MEDS: LEVOTHYROXINE 125 MCG TAB PO SCH (06:03)
[2020-02-03] MEDS: VANCOMYCIN 1,750 MG in SODIUM CHLORIDE 0.9% 500 ML 500 ML IVPB SCH ×2 (06:04→18:17)
[2020-02-03] MEDS: LACOSAMIDE 50 MG TABLET PO SCH ×2 (07:49→20:13)
[2020-02-03] MEDS: GABAPENTIN 400 MG CAP PO SCH ×3 (07:50→20:12)
[2020-02-03] MEDS: MORPHINE SULFATE ER 30 MG TABLET PO SCH ×2 (07:50→20:14)
[2020-02-03] MEDS: APIXABAN 5 MG TAB PO SCH ×2 (07:50→20:15)
[2020-02-03] MEDS: PANTOPRAZOLE 40 MG TABLET PO SCH ×2 (07:51→18:17)
[2020-02-03] MEDS: POTASSIUM CHLORIDE ER 20 MEQ TAB.ER PO SCH ×2 (07:51→20:13)
[2020-02-03] MEDS: NICOTINE 21MG/24HR PATCH TRANSDERM SCH (07:51)
[2020-02-03] MEDS: SENNOSIDES-DOCUSATE SODIUM 1 EACH TAB PO SCH (07:51)
[2020-02-03] MEDS: HYDROCORTISONE 10 MG TAB PO SCH ×2 (07:52→21:00)
[2020-02-03] MEDS: METHOCARBAMOL 750 MG TAB PO SCH ×3 (08:04→21:01)
[2020-02-03 08:29] LABS: Anisocytosis Slight; Basophils # (A) 0.1 k/uL (0-0.2); Basophils % (A) 0 %; Eosinophils # (A) 0.2 k/uL (0-0.7); Eosinophils % (A) 1 %; HCT 39.9 % (34.0-46.0); HGB 12.2 gm/dL (11.4-16.0); Hypochromasia Moderate; Lymphocytes # (A) 2.7 k/uL (1.0-4.8); Lymphocytes % (A) 17 %; MCH 25.6 pg (25.0-35.0); MCHC 30.5 g/dL (31.0-37.0); MCV 83.7 fL (80.0-100.0); Mean Platelet Volume 7.3; Monocytes # (A) 0.7 k/uL (0-1.0); Monocytes % (A) 5 %; Neutrophils # (A) 11.9 k/uL (1.3-7.7); Neutrophils % (A) 75 %; Platelet Count 322 k/uL (150-450); RBC 4.77 m/uL (3.80-5.40); RDW 17.9 % (11.5-15.5); WBC 15.8 k/uL (3.8-10.6)
[2020-02-03 08:44] LABS: African American GFR (CKD) >90 (>60 ml/min/1.73 sqM); Anion Gap 4 mmol/L; Blood Urea Nitrogen 18 mg/dL (7-17); Calcium 8.7 mg/dL (8.4-10.2); Carbon Dioxide 31 mmol/L (22-30); Chloride 99 mmol/L (98-107); Glucose 118 mg/dL (74-99); Non-African American GFR(CKD) >90 (>60 ml/min/1.73 sqM); Potassium 4.4 mmol/L (3.5-5.1); Sodium 134 mmol/L (137-145)
[2020-02-03] MEDS ORDERED: MONTELUKAST 10 MG TAB PO SCH (09:00)
--- NOTE | 2020-02-03 09:58 | P.PN ---
Progress Note - Text Progress Note Date: 02/03/20 Orthopedic Spine: History of present illness: Patient is a pleasant 50-year-old female who is seen at the bedside following open irrigation and debridement of superficial deep lumbar spine wound at L4-5 with removal of deep hardware at L4-5 erformed yesterday. Patient states they are doing well postsurgically. She is not complaining of any lower extremity weakness or radiculopathy bilaterally. She feels she has had significant improvement in her lower extremities overall since her first operative procedure on 01/09/2020. She continues to have improvement of her lower extremities today. She does have some pain at the surgical site but feels her pain has been adequately controlled with medications. Currently does not complain of nausea, vomiting, fever, or chills. Patient states pain has been adequately controlled. Patient is eating and voiding freely without difficulty. Patient's past medical history includes COPD and shortness of breath. Cultures taking during open irrigation and debridement are currently pending. Physical Exam Laminectomy/Discectomy: Status post surgical day number 1 Patient is awake, alert, and oriented 3 Vital signs stable Good chest excursion with deep inspiration and expiration Abdomen soft nontender Dorsiflexion, plantarflexion, and extensor hallucis longus positive sustained bilaterally No signs or symptoms of DVT; no calf pain; calves are soft to palpation Dressing is clean, dry, and intact; no erythema, purulence, or signs of infection Assessment: Status post open irrigation and debridement of superficial deep lumbar spine wound at L4-5 with removal of deep hardware at L4-5 Lumbar spine wound seroma with persistent drainage Possible lumbar spine wound infection History of recent L4-5 laminectomy and decompression with placement of Coflex interlaminar stabilization device performed on 01/09/2020 History of COPD and shortness of breath Obesity Plan: 1. Ambulate as tolerated; work with Physical Therapy 2. Continue Pain control with oral and IV medications including Percocet and Dilaudid as prescribed as needed for control of her symptoms 3. Medical management can continue to manage patient for patient's other medical issues 4. Consultation has also been placed with Dr. Reich in infectious disease 5. We will continue to follow the patient closely; Cultures are currently pending for the patient taken during the open irrigation and debridement of her lumbar spine. We discussed she will continue with IV antibiotics with vancomycin. We'll plan for IV antibiotics be managed by Dr. Reich in infectious disease. We will wait for the culture results and set up an appropriate antibiotic regimen prior to her discharge home. Depending on the finalization of culture results and her progress, we will plan for the patient's discharge home in the next 2-3 days. 6. Patient can follow-up with Jorge Weinberg PA-C or Dr. Eduardo Olivera at [facility] in 2-3 weeks following discharge
[2020-02-03] MEDS: CEFEPIME 2 GM in SODIUM CHLORIDE 0.9% 100 ML IVPB SCH (13:04)
[2020-02-03] MEDS: BENZOCAINE/MENTHOL LOZENG 1 EACH LOZENGE MUCOUS MEM PRN ×2 (13:13→22:36)
[2020-02-03] MEDS: LORazepam 1 MG TAB PO PRN (16:57)
[2020-02-03] MEDS: DULoxetine HCL 30 MG CAPSULE.DR PO SCH (20:11)
[2020-02-03] MEDS: MELOXICAM 7.5 MG TAB PO SCH (20:12)
[2020-02-03] MEDS: MAGNESIUM OXIDE 400 MG TAB PO SCH (20:13)
[2020-02-03] MEDS: MONTELUKAST 10 MG TAB PO SCH (20:13)
[2020-02-03] MEDS: HYDROcodone/APAP 5-325MG 1 EACH TAB PO PRN (21:00)
[2020-02-04] MEDS: CEFEPIME 2 GM in SODIUM CHLORIDE 0.9% 100 ML IVPB SCH ×4 (00:13→21:44)
[2020-02-04] MEDS: SODIUM CHLORIDE 0.9% 1,000 ML IV SCH ×2 (02:57→06:12)
[2020-02-04] MEDS: HYDROmorphone 1 MG/ML 1 ML SYRINGE IVP PRN ×5 (04:53→22:19)
[2020-02-04] MEDS: oxyCODONE-APAP 10-325MG 1 EACH TAB PO PRN ×4 (04:55→23:00)
[2020-02-04] MEDS: VANCOMYCIN 1,750 MG in SODIUM CHLORIDE 0.9% 500 ML 500 ML IVPB SCH (05:15)
[2020-02-04] MEDS: LEVOTHYROXINE 125 MCG TAB PO SCH (05:39)
[2020-02-04 07:46] LABS: Anisocytosis Slight; Basophils # (A) 0.1 k/uL (0-0.2); Basophils % (A) 0 %; Eosinophils # (A) 0.2 k/uL (0-0.7); Eosinophils % (A) 1 %; HCT 38.7 % (34.0-46.0); HGB 11.7 gm/dL (11.4-16.0); Hypochromasia Moderate; Lymphocytes # (A) 2.1 k/uL (1.0-4.8); Lymphocytes % (A) 16 %; MCH 25.6 pg (25.0-35.0); MCHC 30.3 g/dL (31.0-37.0); MCV 84.6 fL (80.0-100.0); Monocytes # (A) 0.7 k/uL (0-1.0); Monocytes % (A) 5 %; Neutrophils % (A) 75 %; Platelet Count 281 k/uL (150-450); RBC 4.58 m/uL (3.80-5.40); RDW 17.8 % (11.5-15.5); WBC 13.3 k/uL (3.8-10.6)
[2020-02-04 07:56] LABS: African American GFR (CKD) >90 (>60 ml/min/1.73 sqM); Anion Gap 4 mmol/L; Blood Urea Nitrogen 16 mg/dL (7-17); Calcium 8.6 mg/dL (8.4-10.2); Carbon Dioxide 31 mmol/L (22-30); Chloride 102 mmol/L (98-107); Glucose 106 mg/dL (74-99); Non-African American GFR(CKD) >90 (>60 ml/min/1.73 sqM); Potassium 4.7 mmol/L (3.5-5.1); Sodium 137 mmol/L (137-145)
[2020-02-04] MEDS: LACOSAMIDE 50 MG TABLET PO SCH ×2 (08:02→22:18)
[2020-02-04] MEDS: MORPHINE SULFATE ER 30 MG TABLET PO SCH (08:02)
[2020-02-04] MEDS: SENNOSIDES-DOCUSATE SODIUM 1 EACH TAB PO SCH (08:02)
[2020-02-04] MEDS: GABAPENTIN 400 MG CAP PO SCH ×3 (08:04→22:18)
[2020-02-04] MEDS: APIXABAN 5 MG TAB PO SCH ×2 (08:04→21:44)
[2020-02-04] MEDS: PANTOPRAZOLE 40 MG TABLET PO SCH ×2 (08:05→18:20)
[2020-02-04] MEDS: POTASSIUM CHLORIDE ER 20 MEQ TAB.ER PO SCH ×2 (08:05→22:18)
[2020-02-04] MEDS: HYDROCORTISONE 10 MG TAB PO SCH ×2 (08:06→21:44)
[2020-02-04] MEDS: METHOCARBAMOL 750 MG TAB PO SCH ×3 (08:07→21:44)
[2020-02-04] MEDS: NICOTINE 21MG/24HR PATCH TRANSDERM SCH (08:07)
[2020-02-04] MEDS: HYDROcodone/APAP 5-325MG 1 EACH TAB PO PRN (08:20)
[2020-02-04] MEDS: LORazepam 1 MG TAB PO PRN (08:22)
--- NOTE | 2020-02-04 08:40 | P.CONS ---
History of Present Illness - Reason for Consult Consult date: 02/03/20 - Chief Complaint persistent lumbar surgical drainage - History of Present Illness Karlos Rojo is a 50 yo F with history of MS, fibromyalgia, chronic pain, hx DVT who is admitted with persistent drainage after excision of lumbar facet seroma. Pt had been experiencing increased low back pain and LE weakness. She underwent revision procedure yesterday with removal of a loose body and debridement of necrotic granulation tissue. Wound culture was sent which is growing gram negative bacilli. Today she reports significant improvement in her low back pain but still having some. She is on cefepime and vancomycin. Review of Systems All systems: negative Constitutional: Denies chills, Denies fever Eyes: denies blurred vision, denies pain Ears, nose, mouth and throat: Denies headache, Denies sore throat Cardiovascular: Denies chest pain, Denies shortness of breath Respiratory: Denies cough Gastrointestinal: Denies abdominal pain, Denies diarrhea, Denies nausea, Denies vomiting Genitourinary: Denies dysuria, Denies hematuria Musculoskeletal: Reports gait dysfunction, Reports low back pain, Denies myalgias Integumentary: Reports color changes, Reports lesions, Reports wounds, Denies pruritus, Denies rash Neurological: Denies numbness, Denies weakness Psychiatric: Denies anxiety, Denies depression Endocrine: Denies fatigue, Denies weight change Past Medical History Past Medical History: Asthma, Blood Disorder, Heart Failure, COPD, Deep Vein Thrombosis (DVT), Eye Disorder, Fibromyalgia, Hearing Disorder / Deafness, Hyperlipidemia, Memory Impairment, Musculoskeletal Disorder, Neurologic Disorder, Osteoarthritis (OA), Pneumonia, Skin Disorder, Sleep Apnea/CPAP/BIPAP, Syncope, Thyroid Disorder Additional Past Medical History / Comment(s): Multiple sclerosis, bronchitis, factor 5 leiden, RUBI-does not wear device, DVT L leg about 2013, hiatal hernia, hoarseness/leucoplasia, adrenal insufficiency/chronic steroid use, migraines, DJD, chronic back pain, bursitis, optic neuritis bilaterally, glaucoma bilateral, bilateral tinnitis, UTI, rosacia, sinus problems, insomnia, hyperso mnia. carpal tunel, vertigo History of Any Multi-Drug Resistant Organisms: None Reported Year Discovered:: 2013 MDRO Source:: stomach Past Surgical History: Bladder Surgery, Section, Cholecystectomy, Tubal Ligation Additional Past Surgical History / Comment(s): 09-24-18 bladder stimulator, 02/05/19 microlarygoscopy/bx, vocal cord polypectomies, cervical bx, bladder suspension, EGD with bx, colonoscopy Past Anesthesia/Blood Transfusion Reactions: Motion Sickness Past Psychological History: ADD/ADHD, Anxiety, Depression Additional Psychological History / Comment(s): Pt resides with her spouse. She has a wheelchair and shower chair. states she does not drive since of 11/19/2019. Smoking Status: Current every day smoker Past Alcohol Use History: None Reported Additional Past Alcohol Use History / Comment(s): 1 ppd smoker since 1981---has cut back and is attempting to use nicotine patch Past Drug Use History: None Reported Additional Drug Use History / Comment(s): occ marijuana use- - Past Family History Brother(s) Family Medical History: Deep Vein Thrombosis (DVT) Father Family Medical History: Deep Vein Thrombosis (DVT) Additional Family Medical History / Comment(s): Patient states that her father has no cardiac history but his father had previous CT's. Mother Family Medical History: Cancer, Deep Vein Thrombosis (DVT), Pulmonary Embolus Additional Family Medical History / Comment(s): Cervical cancer. Medications and Allergies Home Medications Medication Instructions Recorded Confirmed Type Gabapentin 800 mg PO TID 08/13/16 02/02/20 History LORazepam [Ativan] 1 mg PO TID PRN 05/21/17 02/02/20 History Meloxicam [Mobic] 15 mg PO HS 05/21/17 02/02/20 History tiZANidine [Zanaflex] 4 mg PO TID PRN 05/21/17 02/02/20 History Zonisamide [Zonegran] 200 mg PO HS PRN 10/15/17 02/02/20 History Methocarbamol [Robaxin] 750 mg PO TID 09/12/18 02/02/20 History Potassium Chloride [Klor-Con 20] 20 meq PO BID 09/30/18 02/02/20 History DULoxetine HCL [Cymbalta] 30 mg PO HS 11/13/18 02/02/20 History Dextroamphetamine/Amphetamine 30 mg PO BID 11/13/18 02/02/20 History [Adderall] DULoxetine HCL [Cymbalta] 60 mg PO HS 04/01/19 02/02/20 History Hydrocortisone [Cortef] 10 mg PO BID 04/01/19 02/02/20 History Morphine Sulfate ER [Ms Contin] 60 mg PO BID 04/01/19 02/02/20 History Albuterol Nebulized [Ventolin 2.5 mg INHALATION RT-QID PRN 12/03/19 02/02/20 History Nebulized] Lacosamide [Vimpat] 100 mg PO BID 12/03/19 02/02/20 History Levothyroxine Sodium 125 mcg PO DAILY 12/03/19 02/02/20 History Magnesium Oxide 400 mg PO HS 12/03/19 02/02/20 History Meclizine HCl 12.5 mg PO BID PRN 12/03/19 02/02/20 History Omeprazole 40 mg PO BID 12/03/19 02/02/20 History Ondansetron HCl [Zofran] 4 mg PO Q8H PRN 12/03/19 02/02/20 History Rizatriptan Benzoate [Maxalt] 10 mg PO DAILY PRN 12/03/19 02/02/20 History traZODone HCL 100 mg PO HS PRN 12/03/19 02/02/20 History Nicotine 21Mg/24Hr Patch [Habitrol] 1 patch TRANSDERM DAILY #30 patch 12/08/19 02/02/20 Rx Albuterol Inhaler [Ventolin Hfa 2 puff INHALATION RT-QID PRN 12/17/19 02/02/20 History Inhaler] Apixaban [Eliquis] 5 mg PO BID 12/17/19 02/02/20 History Furosemide [Lasix] 20 mg PO BID PRN 12/17/19 02/02/20 History rOPINIRole HCL [Requip] 0.5 mg PO BID 12/17/19 02/02/20 History Montelukast [Singulair] 10 mg PO DAILY 01/08/20 02/02/20 History oxyCODONE HCL/ACETAMINOPHEN 1 tab PO Q6HR PRN #28 tab 01/09/20 02/02/20 Rx [Percocet 10-325 mg] Montelukast [Singulair] 10 mg PO HS 02/02/20 02/02/20 History Allergies Allergy/AdvReac Type Severity Reaction Status Date / Time doxycycline Allergy Rash/Hives Verified 02/02/20 12:19 glatiramer (copolymer 1) Allergy Rapid Verified 02/02/20 12:19 [From Copaxone] Heart Rate,hives, skin flushing sulfamethoxazole Allergy blisters Verified 02/02/20 12:19 [From Bactrim] in mouth trimethoprim [From Bactrim] Allergy blisters Verified 02/02/20 12:19 in mouth steroids AdvReac genital Uncoded 02/02/20 12:19 burning & rashes but still takes steroids. Physical Exam Vitals: Vital Signs Temp Pulse Pulse Resp BP Pulse Ox 02/03/20 21:23 99.4 F 100 20 110/73 91 L 02/03/20 12:54 98.7 F 110 H 14 112/72 96 02/03/20 05:00 98.8 F 93 20 96/63 97 Intake and Output 02/03/20 02/03/20 02/03/20 06:59 14:59 22:59 Intake Total 1525 840 500 Balance 1525 840 500 Intake: Intake, IV Titration 725 600 Amount Sodium Chloride 0.9% 1, 725 600 000 ml @ 75 mls/hr IV . [id number] [facility] Rx#:[id number] Oral 800 240 500 Other: Voiding Method Bedside Commode Bedside Commode # Voids 2 1 General: obese, well developed, NAD. Vitals reviewed Eyes: PERRL, EOMI, conjunctiva normal HENT: normocephalic, mucus membranes moist Neck: supple, no JVD Lungs: normal respiratory effort, no wheezes or rales CV: Regular rate and rhythm, no murmur. Peripheral pulses 2+ Abdomen: soft, nondistended, no organomegaly Lymph: no cervical or axillary LAD Skin: warm and dry Neuro: A&Ox3, normal mood and affect. LE str 5/5 Results CBC & Chem 7: 02/04/20 07:26 02/04/20 07:26 Labs: Abnormal Lab Results - Last 24 Hours (Table) 02/03/20 02/03/20 Range/Units 07:46 07:46 WBC 15.8 H (3.8-10.6) k/uL MCHC 30.5 L (31.0-37.0) g/dL RDW 17.9 H (11.5-15.5) % Neutrophils # 11.9 H (1.3-7.7) k/uL Sodium 134 L (137-145) mmol/L Carbon Dioxide 31 H (22-30) mmol/L BUN 18 H (7-17) mg/dL Glucose 118 H (74-99) mg/dL Microbiology - Last 24 Hours (Table) 02/02/20 14:10 Gram Stain - Preliminary Back Wound Culture - Preliminary Gram Neg Bacilli 02/02/20 14:10 Gram Stain - Preliminary Back Wound Culture - Preliminary Gram Neg Bacilli 02/02/20 14:10 Anaerobic Culture - Preliminary Back 02/02/20 14:10 Fungal Culture - Preliminary Back 02/02/20 14:10 Anaerobic Culture - Preliminary Back 02/02/20 14:10 Fungal Culture - Preliminary Back Assessment and Plan (1) Multiple sclerosis Current Visit: Yes Status: Acute Code(s): G35 - MULTIPLE SCLEROSIS SNOMED Code(s): 05872876 (2) Bilateral leg weakness Current Visit: No Status: Acute Code(s): R29.898 - OTH SYMPTOMS AND SIGNS INVOLVING THE MUSCULOSKELETAL SYSTEM SNOMED Code(s): 4947905 (3) COPD (chronic obstructive pulmonary disease) Current Visit: No Status: Acute Code(s): J44.9 - CHRONIC OBSTRUCTIVE PULMONARY DISEASE, UNSPECIFIED SNOMED Code(s): 20134660 Plan: 1. Lumbar spine seroma with persistent drainage. Operative management per Ortho. Pain control. Continue with broad spectrum antibiotics and follow cultures 2. Multiple sclerosis. 3. Fibromyalgia. Continue home cymbalta, robaxin 4. Hypothyroid 5. Hx DVT. Continue eliquis
[2020-02-04 09:11] LABS: C Reactive Protein 136.3 mg/L (<10.0)
[2020-02-04 10:07] LABS: Erythrocyte Sedimentation Rate 46 mm/hr (0-20)
--- NOTE | 2020-02-04 10:44 | P.PN ---
Subjective Progress Note Date: 02/04/20 Karlos Rojo is a 50 yo F with history of MS, fibromyalgia, chronic pain, hx DVT who is admitted with persistent drainage after excision of lumbar facet seroma. Pt had been experiencing increased low back pain and LE weakness. She underwent revision procedure yesterday with removal of a loose body and sanjuanita ridement of necrotic granulation tissue. Wound culture was sent which is growing gram negative bacilli. Today she reports significant improvement in her low back pain but still having some. She is on cefepime and vancomycin. 02/04/2020 patient reports dressing was saturated earlier this morning, re quiring dressing change. T-max 99, WBC decreased to 13.3. Pain controlled on med regimen as per orthopedic surgery. Denies chest pain, palpitations or shortness of breath. Good diet intake with no nausea vomiting or diarrhea. Blood sugars controlled. Denies abdominal pain. Currently maintained on cefepime and vancomycin. Blood cultures reporting gram-negative bacilli. Objective - Vital Signs Vital signs: Vital Signs Temp 99.0 F 02/04/20 05:00 Pulse 103 H 02/04/20 05:00 Resp 20 02/04/20 05:00 BP 107/65 02/04/20 05:00 Pulse Ox 94 L 02/04/20 05:00 Intake & Output 02/03/20 02/04/20 02/04/20 18:59 06:59 18:59 Intake Total 840 500 240 Balance 840 500 240 Intake: Intake, IV Titration 600 Amount Sodium Chloride 0.9% 1, 600 000 ml @ 75 mls/hr IV . [id number] [facility] Rx#:[id number] Oral 240 500 240 Other: Voiding Method Bedside Commode Bedside Commode # Voids 1 - Exam General: obese, well developed, sitting up in bed, NAD. Vitals reviewed Eyes: PERRL, EOMI, conjunctiva normal HENT: normocephalic, mucus membranes moist Neck: supple, no JVD Lungs: normal respiratory effort, no wheezes or rales. No rhonchi CV: Regular rate and rhythm, no murmur. Peripheral pulses 2+ Abdomen: soft, nondistended, no organomegaly Lymph: no cervical or axillary LAD Skin: warm and dry. Dressing clean dry and intact Neuro: A&Ox3, normal mood and affect. LE str 12/29 Microbiology 02/02/20 14:10 Back Gram Stain - Preliminary 02/02/20 14:10 Back Wound Culture - Preliminary Gram Neg Bacilli 02/02/20 14:10 Back Gram Stain - Preliminary 02/02/20 14:10 Back Wound Culture - Preliminary Gram Neg Bacilli 02/02/20 14:10 Back Anaerobic Culture - Preliminary 02/02/20 14:10 Back Fungal Culture - Preliminary 02/02/20 14:10 Back Anaerobic Culture - Preliminary 02/02/20 14:10 Back Fungal Culture - Preliminary - Labs CBC & Chem 7: 02/04/20 07:26 02/04/20 07:26 Labs: Abnormal Lab Results - Last 24 Hours (Table) 02/04/20 02/04/20 Range/Units 07:26 07:26 WBC 13.3 H (3.8-10.6) k/uL MCHC 30.3 L (31.0-37.0) g/dL RDW 17.8 H (11.5-15.5) % Neutrophils # 10.0 H (1.3-7.7) k/uL ESR 46 H (0-20) mm/hr Carbon Dioxide 31 H (22-30) mmol/L Glucose 106 H (74-99) mg/dL C-Reactive Protein 136.3 H (<10.0) mg/L Microbiology - Last 24 Hours (Table) 02/02/20 14:10 Gram Stain - Preliminary Back Wound Culture - Preliminary Gram Neg Bacilli 02/02/20 14:10 Gram Stain - Preliminary Back Wound Culture - Preliminary Gram Neg Bacilli Assessment and Plan Assessment: (1) lumbar spine seroma with persistent drainage. status post I&D . Wound culture reporting gram-negative bacilli. (2)Multiple sclerosis Current Visit: Yes Status: Acute Code(s): G35 - MULTIPLE SCLEROSIS SNOMED Code(s): 79961829 (3) fibromyalgia (4) Bilateral leg weakness Current Visit: No Status: Acute Code(s): R29.898 - OTH SYMPTOMS AND SIGNS INVOLVING THE MUSCULOSKELETAL SYSTEM SNOMED Code(s): 7916525 (5) hypothyroidism (6) history of DVT on Eliquis (7)COPD (chronic obstructive pulmonary disease) Current Visit: No Status: Acute Code(s): J44.9 - CHRONIC OBSTRUCTIVE PULMONARY DISEASE, UNSPECIFIED SNOMED Code(s): 72694369 Plan: Continue on current medication regime ,monitoring and symptomatic treatment. Maintain on IV antibiotics as per ID; currently on cefepime and vancomycin. Wound care as per ID and orthopedic surgery. Pain management as per orthopedic surgery. Maintain tight blood sugar control with Close monitoring of Accu-Cheks. Aggressive pulmonary toileting with incentive spirometer reinforced.PT/OT. Further recommendations to follow. The impression and plan of care has been dictated as directed. : I performed a history and examination of this patient, discussed the same with the dictator. I agree with the dictator's note ,documented as a scribe. Any additional findings or plans will be noted.
[2020-02-04] MEDS: BENZOCAINE/MENTHOL LOZENG 1 EACH LOZENGE MUCOUS MEM PRN (11:01)
--- NOTE | 2020-02-04 11:54 | P.CONS ---
History of Present Illness - Reason for Consult Consult date: 02/03/20 lumbar spine wound infection Requesting physician: Ulysses Olivera - Chief Complaint Pain and drainage from the lumbar spine incision site x days - History of Present Illness Patient is a 50-year-old female who is a status post laminectomy and decompression with the placement of Coflex device at L4-5 level that was done on January 09, 2020 patient apparently seem to have a problem with the persistent drainage from her incision she has been evaluated in the outpatient setting and the lower end of the incision was stitched however subsequently seemed having problem with more pain swelling of this area and persistent drainage which was mostly bloodstained patient also complaining of a low-grade fever at home with the symptom the patient has been brought back to the hospital and has been taken back to the OR with concern for lumbar spine wound seroma and possible infection in this patient who is status post irrigation and debridement of the superficial and deep lumbar spinal wound and removal of the deep hardware at L4-5 level patient had did have her local cultures obtained and she was started on vancomycin admitted to hospital infectious disease has been consulted for further management of antibiotic therapy patient has been afebrile since she has been admitted to the hospital she been complaining of pain to the lumbar spine surgical site sharp intensity almost 7-10 out of 10 and no radiation did have persistent drainage from that area patient did have a white count of 15.8 creatinine has been normal wound culture now showing gram-negative bacilli unfortunately no blood culture has been done. Review of Systems Positive point has been mentioned in HPI rest of the systems are negative Past Medical History Past Medical History: Asthma, Blood Disorder, Heart Failure, COPD, Deep Vein Thrombosis (DVT), Eye Disorder, Fibromyalgia, Hearing Disorder / Deafness, Hyperlipidemia, Memory Impairment, Musculoskeletal Disorder, Neurologic Disorder, Osteoarthritis (OA), Pneumonia, Skin Disorder, Sleep Apnea/CPAP/BIPAP, Syncope, Thyroid Disorder Additional Past Medical History / Comment(s): Multiple sclerosis, bronchitis, factor 5 leiden, RUBI-does not wear device, DVT L leg about 2013, hiatal hernia, hoarseness/leucoplasia, adrenal insufficiency/chronic steroid use, migraines, DJD, chronic back pain, bursitis, optic neuritis bilaterally, glaucoma bilate ral, bilateral tinnitis, UTI, rosacia, sinus problems, insomnia, hypersomnia. carpal tunel, vertigo History of Any Multi-Drug Resistant Organisms: None Reported Year Discovered:: 2013 MDRO Source:: stomach Past Surgical History: Bladder Surgery, Section, Cholecystectomy, Tubal Ligation Additional Past Surgical History / Comment(s): 09-24-18 bladder stimulator, 02/05 microlarygoscopy/bx, vocal cord polypectomies, cervical bx, bladder suspension, EGD with bx, colonoscopy Past Anesthesia/Blood Transfusion Reactions: Motion Sickness Past Psychological History: ADD/ADHD, Anxiety, Depression Additional Psychological History / Comment(s): Pt resides with her spouse. She has a wheelchair and shower chair. states she does not drive since of 11/19/2019. Smoking Status: Current every day smoker Past Alcohol Use History: None Reported Additional Past Alcohol Use History / Comment(s): 1 ppd smoker since 1981---has cut back and is attempting to use nicotine patch Past Drug Use History: None Reported Additional Drug Use History / Comment(s): occ marijuana use- - Past Family History Brother(s) Family Medical History: Deep Vein Thrombosis (DVT) Father Family Medical History: Deep Vein Thrombosis (DVT) Additional Family Medical History / Comment(s): Patient states that her father has no cardiac history but his father had previous MS's. Mother Family Medical History: Cancer, Deep Vein Thrombosis (DVT), Pulmonary Embolus Additional Family Medical History / Comment(s): Cervical cancer. Medications and Allergies Home Medications Medication Instructions Recorded Confirmed Type Gabapentin 800 mg PO TID 08/13/16 02/02/20 History LORazepam [Ativan] 1 mg PO TID PRN 05/21/17 02/02/20 History Meloxicam [Mobic] 15 mg PO HS 05/21/17 02/02/20 History tiZANidine [Zanaflex] 4 mg PO TID PRN 05/21/17 02/02/20 History Zonisamide [Zonegran] 200 mg PO HS PRN 10/15/17 02/02/20 History Methocarbamol [Robaxin] 750 mg PO TID 09/12/18 02/02/20 History Potassium Chloride [Klor-Con 20] 20 meq PO BID 09/30/18 02/02/20 History DULoxetine HCL [Cymbalta] 30 mg PO HS 11/13/18 02/02/20 History Dextroamphetamine/Amphetamine 30 mg PO BID 11/13/18 02/02/20 History [Adderall] DULoxetine HCL [Cymbalta] 60 mg PO HS 04/01/19 02/02/20 History Hydrocortisone [Cortef] 10 mg PO BID 04/01/19 02/02/20 History Morphine Sulfate ER [Ms Contin] 60 mg PO BID 04/01/19 02/02/20 History Albuterol Nebulized [Ventolin 2.5 mg INHALATION RT-QID PRN 12/03/19 02/02/20 History Nebulized] Lacosamide [Vimpat] 100 mg PO BID 12/03/19 02/02/20 History Levothyroxine Sodium 125 mcg PO DAILY 12/03/19 02/02/20 History Magnesium Oxide 400 mg PO HS 12/03/19 02/02/20 History Meclizine HCl 12.5 mg PO BID PRN 12/03/19 02/02/20 History Omeprazole 40 mg PO BID 12/03/19 02/02/20 History Ondansetron HCl [Zofran] 4 mg PO Q8H PRN 12/03/19 02/02/20 History Rizatriptan Benzoate [Maxalt] 10 mg PO DAILY PRN 12/03/19 02/02/20 History traZODone HCL 100 mg PO HS PRN 12/03/19 02/02/20 History Nicotine 21Mg/24Hr Patch [Habitrol] 1 patch TRANSDERM DAILY #30 patch 12/08/19 02/02/20 Rx Albuterol Inhaler [Ventolin Hfa 2 puff INHALATION RT-QID PRN 12/17/19 02/02/20 History Inhaler] Apixaban [Eliquis] 5 mg PO BID 12/17/19 02/02/20 History Furosemide [Lasix] 20 mg PO BID PRN 12/17/19 02/02/20 History rOPINIRole HCL [Requip] 0.5 mg PO BID 12/17/19 02/02/20 History Montelukast [Singulair] 10 mg PO DAILY 01/08/20 02/02/20 History oxyCODONE HCL/ACETAMINOPHEN 1 tab PO Q6HR PRN #28 tab 01/09/20 02/02/20 Rx [Percocet 10-325 mg] Montelukast [Singulair] 10 mg PO HS 02/02/20 02/02/20 History Allergies Allergy/AdvReac Type Severity Reaction Status Date / Time doxycycline Allergy Rash/Hives Verified 02/02/20 12:19 glatiramer (copolymer 1) Allergy Rapid Verified 02/02/20 12:19 [From Copaxone] Heart Rate,hives, skin flushing sulfamethoxazole Allergy blisters Verified 02/02/20 12:19 [From Bactrim] in mouth trimethoprim [From Bactrim] Allergy blisters Verified 02/02/20 12:19 in mouth steroids AdvReac genital Uncoded 02/02/20 12:19 burning & rashes but still takes steroids. Physical Exam Vitals: Vital Signs Temp Pulse Resp BP Pulse Ox 02/03/20 05:00 98.8 F 93 20 96/63 97 02/02/20 21:17 99.2 F 105 H 20 152/87 92 L 02/02/20 17:25 98.9 F 105 H 18 99/68 95 02/02/20 16:30 105 H 18 122/55 96 02/02/20 16:00 106 H 18 130/60 95 02/02/20 15:36 110 H 18 128/79 96 02/02/20 15:21 112 H 20 136/73 97 02/02/20 15:06 132 H 24 136/88 98 02/02/20 14:51 96 20 156/96 97 02/02/20 14:36 98.0 F 91 18 142/65 98 Intake and Output 02/02/20 02/03/20 02/03/20 22:59 06:59 14:59 Intake Total 1350 1525 240 Balance 1350 1525 240 Intake: IV 850 Intake, IV Titration 725 Amount Sodium Chloride 0.9% 1, 725 000 ml @ 75 mls/hr IV . [id number] [facility] Rx#:[id number] Oral 500 800 240 Other: Voiding Method Bedside Commode # Voids 1 2 Weight 109 kg GENERAL DESCRIPTION: Middle-aged female up in bed, no distress. No tachypnea or accessory muscle of respiration use. HEENT: Shows Pallor , no scleral icterus. Oral mucous membrane is dry. NECK: Trachea central, no thyromegaly. LUNGS: Unlabored breathing. Clear to auscultation anteriorly. No wheeze or crackle. HEART: S1, S2, regular rate and rhythm. ABDOMEN: Soft, no tenderness , guarding or rigidity EXTREMITIES: No edema of feet. SKIN: Lumbar spine incision site with minimal swelling some bloodstained drainage no foul-smelling NEUROLOGICAL: The patient is awake, alert, oriented x3, mood and affect normal. Results CBC & Chem 7: 02/04/20 07:26 02/04/20 07:26 Labs: Abnormal Lab Results - Last 24 Hours (Table) 02/02/20 02/03/20 02/03/20 Range/Units 12:36 07:46 07:46 WBC 15.8 H (3.8-10.6) k/uL MCHC 30.5 L (31.0-37.0) g/dL RDW 17.9 H (11.5-15.5) % Neutrophils # 11.9 H (1.3-7.7) k/uL Sodium 136 L 134 L (137-145) mmol/L Carbon Dioxide 31 H (22-30) mmol/L BUN 20 H 18 H (7-17) mg/dL Glucose 131 H 118 H (74-99) mg/dL AST 51 H (14-36) U/L Microbiology - Last 24 Hours (Table) 02/02/20 14:10 Gram Stain - Preliminary Back Wound Culture - Preliminary 02/02/20 14:10 Gram Stain - Preliminary Back Wound Culture - Preliminary 02/02/20 14:10 Anaerobic Culture - Preliminary Back 02/02/20 14:10 Fungal Culture - Preliminary Back 02/02/20 14:10 Anaerobic Culture - Preliminary Back 02/02/20 14:10 Fungal Culture - Preliminary Back Assessment and Plan Assessment: -patient is a 50-year-old female who is status post laminectomy decompression with placement of Coflex device L4-5 subsequently admitted to the hospital with persistent drainage from that site with concern for underlying infection in this patient who status post I&D and removal of the deep device culture has been obtained with no showing gram-negative bacilli (1) Infection of lumbar spine Current Visit: Yes Status: Acute Code(s): M46.26 - OSTEOMYELITIS OF VERTEBRA, LUMBAR REGION SNOMED Code(s): 682935544 Plan: 1-we will add cefepime 2 g every 12 hours 2-vancomycin pharmacy to dose her with a target trough of 15 while watching her kidney function and Vanco trough closely. 3-patient likely need PICC line outpatient antibiotic therapy We will follow on clinical condition and cultures to further adjust medication if needed Thank you for this consultation we will follow the patient along with you Time with Patient: Greater than 30
--- NOTE | 2020-02-04 12:39 | P.PN ---
Progress Note - Text Progress Note Date: 02/04/20 Postoperative day #2 Patient is seen and examined today at bedside. The patient has some pain around the surgical site as expected. There is still some drainage. This morning apparently she had a significant amount of serosanguineous fluid drained from the incision site. Pain is being controlled with medication. Physical Exam Afebrile with stable vital signs Abdomen is soft nontender. Chest has good excursion deep and space expiration The incision site is clean dry and intact. No erythema there is no purulence. Incision site is dry currently and I am unable to express any fluid currently. There is no erythema. There is no obvious purulence. The nery are intact. There was apparently significant saturation of the dressing this morning with serosanguineous fluid. Extremities have not had neurologic change from prior to surgery. Calves and thighs were soft nontender without evidence of DVT. Assessment/Plan Postoperative day #2 Status post irrigation and debridement of lumbar spine wound Lumbar spine wound infection 3 weeks postop from laminectomy decompression for her severe spinal stenosis with lower extremity weakness and radiculopathy Patient is progressing somewhat slowly from the surgery. There is still drainage at the site and we will have to continue her on empiric antibiotics until final cultures are completed. Her cultures did show gram-negative bacilli. We will continue antibiotic per infectious disease service. We will continue to increase the patient's mobilization with therapy. We will continue pain control with oral or IV medications. We'll continue to follow patient closely.
--- NOTE | 2020-02-04 13:05 | PN ---
PROGRESS NOTE DATE OF SERVICE: 02/04/2020 REASON FOR FOLLOWUP: Lumbar spine infection. INTERVAL HISTORY: The patient is currently afebrile. The patient is breathing comfortably. Still complaining of significant pain to the sacral area in addition to the drainage. No chest pain, shortness of breath or cough. No abdominal pain, no diarrhea. PHYSICAL EXAMINATION: Blood pressure 113/77, pulse of 90, temperature 98.6, she is 98% on room air. General description is a middle-aged female, up in the bed in no distress. RESPIRATORY SYSTEM: Unlabored breathing, clear to auscultation anteriorly. HEART: S1, S2. Regular rate and rhythm. ABDOMEN: Soft, no tenderness. LABS: Hemoglobin 11.1, white count 13.3, sedimentation rate is 46. CRP is 136. DIAGNOSTIC IMPRESSION/PLAN: Patient with lumbar spine wound infection. This patient recently did have surgical laminectomy and decompression, hardware has been removed. Culture showing Gram- negative bacilli. Will keep the patient on cefepime. With no gram-positive, will discontinue the vancomycin and monitor clinical course closely. MMODL / IJN: [id number] /
[2020-02-04] MEDS: tiZANidine 4 MG TAB PO PRN (16:56)
[2020-02-04] MEDS: MELOXICAM 7.5 MG TAB PO SCH (21:43)
[2020-02-04] MEDS: DULoxetine HCL 30 MG CAPSULE.DR PO SCH (21:44)
[2020-02-04] MEDS: MAGNESIUM OXIDE 400 MG TAB PO SCH (21:44)
[2020-02-04] MEDS: MONTELUKAST 10 MG TAB PO SCH (22:18)
[2020-02-04] MEDS: MORPHINE SULFATE ER 60 MG TABLET PO SCH (22:18)
[2020-02-05] MEDS ORDERED: HYDROmorphone 1 MG/ML 1 ML SYRINGE ONE (02:25)
[2020-02-05] MEDS ORDERED: LORazepam 1 MG TAB ONE (02:25)
[2020-02-05] MEDS: SODIUM CHLORIDE 0.9% 1,000 ML IV SCH ×3 (03:24→22:25)
[2020-02-05] MEDS: oxyCODONE-APAP 10-325MG 1 EACH TAB PO PRN ×3 (05:19→22:27)
[2020-02-05 06:20] LABS: Anisocytosis Slight; Basophils % (A) 0 %; Eosinophils # (A) 0.4 k/uL (0-0.7); Eosinophils % (A) 3 %; HCT 36.4 % (34.0-46.0); HGB 11.7 gm/dL (11.4-16.0); Hypochromasia Marked; Lymphocytes # (A) 2.2 k/uL (1.0-4.8); Lymphocytes % (A) 16 %; MCH 27.2 pg (25.0-35.0); MCHC 32.2 g/dL (31.0-37.0); MCV 84.5 fL (80.0-100.0); Mean Platelet Volume 7.4; Monocytes # (A) 0.5 k/uL (0-1.0); Monocytes % (A) 4 %; Neutrophils # (A) 10.1 k/uL (1.3-7.7); Neutrophils % (A) 75 %; Platelet Count 304 k/uL (150-450); Poikilocytosis Slight; RDW 17.3 % (11.5-15.5); WBC 13.4 k/uL (3.8-10.6)
[2020-02-05] MEDS: FUROSEMIDE 20 MG TAB PO PRN ×2 (06:42→15:48)
[2020-02-05] MEDS: LEVOTHYROXINE 125 MCG TAB PO SCH (06:42)
[2020-02-05] MEDS: HYDROmorphone 1 MG/ML 1 ML SYRINGE IVP PRN ×4 (06:43→20:31)
[2020-02-05 07:02] LABS: African American GFR (CKD) >90 (>60 ml/min/1.73 sqM); Anion Gap 3 mmol/L; Blood Urea Nitrogen 12 mg/dL (7-17); Calcium 8.2 mg/dL (8.4-10.2); Carbon Dioxide 26 mmol/L (22-30); Chloride 106 mmol/L (98-107); Glucose 131 mg/dL (74-99); Non-African American GFR(CKD) >90 (>60 ml/min/1.73 sqM); Sodium 135 mmol/L (137-145)
[2020-02-05 07:28] LABS: Potassium 4.6 mmol/L (3.5-5.1)
--- NOTE | 2020-02-05 07:31 | CDI ---
Please note that this was in fact an excisional debridement. Using a scalpel scrapers and curettes as well as rongeurs and Bovie cauterization to remove denuded tissue and devitalized tissue and bone as well as bony fragments and granulated tissue. These were all excised. The wound was approximately 12 cm long by 10 cm deep to the bony spine and epidural space. After the debridement I was able to achieve good devitalized tissue with good mildly bleeding margins. The bleeding was well controlled. Documentation Clarification Form Date: 02/05/2020 07:24:08 AM From: Maribeth Murillo RN, CCDS Admit Date: 02/04/2020 01:01:00 PM Patient Name: Karlos Rojo Visit Number: [id number] ATTENTION: The Clinical Documentation Specialists (CDI) and [facility] Coding Staff appreciate your assistance in clarifying documentation. Please respond to the clarification below the line at the bottom and electronically sign. The CDI & [facility] Coding staff will review the response and follow-up if needed. Please note: Queries are made part of the Legal Health Record. If you have any questions, please contact the author of this message via ITS. Dr. Ulysses Olivera Per your progress notes/operative note, a debridement was performed on ___ History/Risk Factors: Recent history of laminectomy decompression with placement of Coflex device L4 5, done on 01/09/2020 Clinical Indicators: 02/02/2020 Procedure Note: "Lumbar spine wound seroma with persistent drainage Possible lumbar spine wound infection Recent history of laminectomy decompression with placement of Coflex device. Treatment: 02/01 Op Note: "Portion of the spinous process of L4 had fractured and this was removed as well. There is severe amounts of denuded tissue and liquefaction necrosis of fat. There was granular tissue over all the surfaces. We did a debridement extensively with Huerta curettes and Bovie. As able to remove the devascularized and denuded tissue. All the granulation tissue was debrided off. I removed the area over the epidural space as well. Five elements required for accurate and compliant documentation of a debridement: 1. Technique used (e.g., excisional, excised, cutting, etc.) 2. Instrument(s) used (e.g., scalpel, curette, etc.) 3. Nature of the tissue removed (e.g., necrotic, devitalized tissues, non- viable tissue, etc.) 4. Appearance and size of the wound (e.g., down to fresh bleeding tissue, 7cm x 10cm, etc.) 5. Depth of the debridement* (e.g., skin, subcutaneous tissue, fascia, muscle, bone, etc.) In order to capture the severity of condition and code the appropriate procedure; could you please document the following: Excisional debridement (the removal of necrotic, devitalized tissue or slough by means of cutting away of tissue) Non-excisional debridement (the removal of necrotic, devitalized tissue or slough by means of flushing, brushing, or washing. (Irrigation) Other; please specify Unable to determine (Last Revision: November 2017) MTDD
--- NOTE | 2020-02-05 09:28 | P.PN ---
Progress Note - Text Progress Note Date: 02/05/20 Postoperative day #3 Patient is seen and examined today at bedside. There is still some serosa nguineous drainage overnight and the dressing had to be changed. She has been over 6 hours since her last dressing change and there is no significant drainage on the dressing this morning. Physical Exam Afebrile with stable vital signs Abdomen is soft nontender. Chest has good excursion deep and space expiration The incision site is clean and intact. There is no purulence there is no erythe ma. The nery are intact. I'm unable to get any active drainage from the area. Extremities have not had neurologic change from prior to surgery. She has sustained dorsal flexion plantar flexion and EHL intact. Calves and thighs were soft nontender without evidence of DVT. Her culture came back and infectious disease is following closely. She is on appropriate antibiotics and we will determine the antibiotic plan Assessment/Plan Postoperative day #3 status post irrigation and debridement of deep lumbar spine wound infection with 3 Post laminectomy Patient is progressing slowly but seems to be making some advancement. He have asked her appropriate for her and the culture is complete. Hopefully we will be able to establish an antibiotic regimen for her for discharge. The wound still has some drainage but it is clear serosanguineous fluid without obvious purulence. We will keep the nery intact and continue dry dressing changes. We will continue to increase the patient's mobilization with therapy. We will continue pain control with oral or IV medications. We'll continue to follow patient closely.
[2020-02-05] MEDS: APIXABAN 5 MG TAB PO SCH (09:43)
[2020-02-05] MEDS: PANTOPRAZOLE 40 MG TABLET PO SCH ×2 (09:43→21:32)
[2020-02-05] MEDS: NICOTINE 21MG/24HR PATCH TRANSDERM SCH (09:43)
[2020-02-05] MEDS: CEFEPIME 2 GM in SODIUM CHLORIDE 0.9% 100 ML IVPB SCH ×2 (09:43→21:33)
[2020-02-05] MEDS: MORPHINE SULFATE ER 60 MG TABLET PO SCH ×2 (09:44→21:33)
[2020-02-05] MEDS: HYDROCORTISONE 10 MG TAB PO SCH ×2 (09:44→21:32)
[2020-02-05] MEDS: GABAPENTIN 400 MG CAP PO SCH ×3 (09:44→22:27)
[2020-02-05] MEDS: LACOSAMIDE 50 MG TABLET PO SCH ×2 (09:44→21:32)
[2020-02-05] MEDS: METHOCARBAMOL 750 MG TAB PO SCH ×3 (09:44→21:32)
[2020-02-05] MEDS: POTASSIUM CHLORIDE ER 20 MEQ TAB.ER PO SCH ×2 (09:45→21:33)
[2020-02-05] MEDS: SENNOSIDES-DOCUSATE SODIUM 1 EACH TAB PO SCH (09:46)
[2020-02-05] MEDS: LORazepam 1 MG TAB PO PRN ×2 (10:06→17:27)
[2020-02-05 11:03] VITALS: BMI 38.7
[2020-02-05 12:25] LABS: INR 0.9 (<1.2); Prothrombin Time 9.4 sec (9.0-12.0)
--- NOTE | 2020-02-05 12:28 | P.PN ---
Subjective Progress Note Date: 02/05/20 Karlos Rojo is a 50 yo F with history of MS, fibromyalgia, chronic pain, hx DVT who is admitted with persistent drainage after excision of lumbar facet seroma. Pt had been experiencing increased low back pain and LE weakness. She underwent revision procedure yesterday with removal of a loose body and sanjuanita ridement of necrotic granulation tissue. Wound culture was sent which is growing gram negative bacilli. Today she reports significant improvement in her low back pain but still having some. She is on cefepime and vancomycin. 02/04/2020 patient reports dressing was saturated earlier this morning, re quiring dressing change. T-max 99, WBC decreased to 13.3. Pain controlled on med regimen as per orthopedic surgery. Denies chest pain, palpitations or shortness of breath. Good diet intake with no nausea vomiting or diarrhea. Blood sugars controlled. Denies abdominal pain. Currently maintained on cefepime and vancomycin. Blood cultures reporting gram-negative bacilli. 02/05/2020 Wound cultures currently reporting enterococcus cloacae. Afebrile, T-max 99.6, WBC 13.4. Vancomycin discontinued, Maintained on cefepime. Dressing changed approximately 7 hours ago, clean dry with no drainage currently. Pain controlled. Denies chest pain, palpitations or shortness of breath. Objective - Vital Signs Vital signs: Vital Signs Temp 98.6 F 02/05/20 08:16 Pulse 107 H 02/05/20 08:16 Resp 20 02/05/20 08:16 BP 112/74 02/05/20 08:16 Pulse Ox 96 02/05/20 08:16 Intake & Output 02/04/20 02/05/20 02/05/20 18:59 06:59 18:59 Intake Total 960 1000 Output Total 500 1800 Balance 460 1000 -1800 Weight 109 kg Intake: Oral 960 1000 Output: Urine 500 1800 Other: Voiding Method Toilet Toilet # Voids 1 2 - Exam General: obese, well developed, sitting up in bed, NAD. Eyes: PERRL, EOMI, conjunctiva normal HENT: normocephalic, mucus membranes moist Neck: supple, no JVD Lungs: normal respiratory effort, no wheezes or rales. No rhonchi CV: Regular rate and rhythm, no murmur. Peripheral pulses 2+ Abdomen: soft, nondistended, no organomegaly Lymph: no cervical or axillary LAD Skin: warm and dry. Dressing clean dry and intact Neuro: A&Ox3, normal mood and affect. LE str 5/5 Microbiology 02/02/20 14:10 Back Gram Stain - Final 02/02/20 14:10 Back Wound Culture - Final Enterobacter cloacae 02/02/20 14:10 Back Anaerobic Culture - Preliminary 02/02/20 14:10 Back Anaerobic Culture - Preliminary 02/02/20 14:10 Back Gram Stain - Final 02/02/20 14:10 Back Wound Culture - Final Enterobacter cloacae 02/02/20 14:10 Back Fungal Culture - Preliminary 02/02/20 14:10 Back Fungal Culture - Preliminary - Labs CBC & Chem 7: 02/05/20 05:53 02/05/20 05:53 Labs: Abnormal Lab Results - Last 24 Hours (Table) 02/04/20 02/05/20 02/05/20 Range/Units 22:40 05:53 05:53 WBC 13.4 H (3.8-10.6) k/uL RDW 17.3 H (11.5-15.5) % Neutrophils # 10.1 H (1.3-7.7) k/uL Sodium 135 L (137-145) mmol/L Creatinine 0.46 L (0.52-1.04) mg/dL Glucose 131 H (74-99) mg/dL Plasma Lactic Acid Jasbir 0.6 L (0.7-2.0) mmol/L Calcium 8.2 L (8.4-10.2) mg/dL Microbiology - Last 24 Hours (Table) 02/02/20 14:10 Gram Stain - Final Back Wound Culture - Final Enterobacter cloacae 02/02/20 14:10 Anaerobic Culture - Preliminary Back 02/02/20 14:10 Anaerobic Culture - Preliminary Back 02/02/20 14:10 Gram Stain - Final Back Wound Culture - Final Enterobacter cloacae Assessment and Plan Assessment: (1) lumbar spine seroma with persistent drainage. status post I&D . Wound culture reporting gram-negative bacilli. (2)Multiple sclerosis Current Visit: Yes Status: Acute Code(s): G35 - MULTIPLE SCLEROSIS SNOMED Code(s): 03963772 (3) fibromyalgia (4) Bilateral leg weakness Current Visit: No Status: Acute Code(s): R29.898 - [facility] SYMPTOMS AND SIGNS INVOLVING THE MUSCULOSKELETAL SYSTEM SNOMED Code(s): 1680514 (5) hypothyroidism (6) history of DVT on Eliquis (7)COPD (chronic obstructive pulmonary disease) Current Visit: No Status: Acute Code(s): J44.9 - CHRONIC OBSTRUCTIVE PULMONARY DISEASE, UNSPECIFIED SNOMED Code(s): 17559775 Plan: Continue on current medication regime ,monitoring and symptomatic treatment. Maintain on IV antibiotics,cefepime , wound care as per ID and orthopedic surgery. Pain management. Aggressive pulmonary toileting with incentive spirometer reinforced.PT/OT. Discharge planning in progress pending final cultures and discharge antibiotic recommendations. The impression and plan of care has been dictated as directed. : I performed a history and examination of this patient, discussed the same with the dictator. I agree with the dictator's note ,documented as a scribe. Any additional findings or plans will be noted.
--- NOTE | 2020-02-05 13:05 | PN ---
PROGRESS NOTE DATE OF SERVICE: 02/05/2020 REASON FOR FOLLOWUP: Lumbar spine infection. INTERVAL HISTORY: The patient is currently afebrile. The patient is feeling better. Breathing comfortably. Pain to the area but no worsening. Still complaining of drainage. No chest pain, shortness of breath or cough. No abdominal pain. No diarrhea. PHYSICAL EXAMINATION: Blood pressure 112/74 with a pulse of 69, temperature 98.6, he is 96% on room air. General description is a middle-aged female, up in the bed in no distress. RESPIRATORY SYSTEM: Unlabored breathing, clear to auscultation anteriorly. HEART: S1, S2. Regular rate and rhythm. ABDOMEN: Soft, on tenderness. LABS: Hemoglobin 11.4, white count of 13.4, BUN of 12, creatinine 0.46. DIAGNOSTIC IMPRESSION AND PLAN: Patient with lumbar sine wound infection. This patient did have removal of the hardware. Culture has been Enterobacter sensitive to cefepime. Plan for PICC line 7.2 g q.12 for a total of 6 weeks with weekly monitoring of labs and monitor clinical course closely. MMODL / IJN: [id number] /
[2020-02-05] MEDS: HYDROcodone/APAP 5-325MG 1 EACH TAB PO PRN (18:00)
[2020-02-05] MEDS: MELOXICAM 7.5 MG TAB PO SCH (21:32)
[2020-02-05] MEDS: DULoxetine HCL 30 MG CAPSULE.DR PO SCH (21:32)
[2020-02-05] MEDS: MAGNESIUM OXIDE 400 MG TAB PO SCH (21:33)
[2020-02-05] MEDS: MONTELUKAST 10 MG TAB PO SCH (21:33)
[2020-02-06] MEDS: HYDROmorphone 1 MG/ML 1 ML SYRINGE IVP PRN (03:06)
[2020-02-06] MEDS: PANTOPRAZOLE 40 MG TABLET PO SCH ×2 (06:24→16:59)
[2020-02-06] MEDS: LEVOTHYROXINE 125 MCG TAB PO SCH (06:24)
[2020-02-06] MEDS: FUROSEMIDE 20 MG TAB PO PRN ×2 (06:24→15:51)
[2020-02-06 06:30] LABS: African American GFR (CKD) >90 (>60 ml/min/1.73 sqM); Non-African American GFR(CKD) >90 (>60 ml/min/1.73 sqM)
--- NOTE | 2020-02-06 07:52 | P.PN ---
Progress Note - Text Progress Note Date: 02/06/20 Postoperative day #4 Patient is seen and examined today at bedside. There is persistent serosa nguineous drainage on the dressing. There is no erythema there is no gross pus Pain is being controlled with medication. She takes significant pain medications at home and we had a long discussion about this today. Also insertion does seem fairly comfortable she is able to sit up though she has soreness at her back and she is comfortable during conversation and well following simple commands. Physical Exam Afebrile with stable vital signs Her conversation is comfortable and without significant strain. She sits up in bed she has some soreness when she sits up but she is able to this quite easily. She is appropriate with her conversation and well following commands. She says she still requiring significant pain medication to help her take the edge of. She does not appear to be in any acute pain. Abdomen is soft nontender. Chest has good excursion deep and space expiration The incision site is clean and intact. No erythema there is no purulence. There is serosanguineous drainage on the dressing there is no active drainage with palpation. Stefania are intact. Extremities have not had neurologic change from prior to surgery. She has sustained dorsal flexion plantar flexion and well Calves and thighs were soft nontender without evidence of DVT. Assessment/Plan Postoperative day #4 status post irrigation and debridement of lumbar spine wound infection with excisional debridement of denuded tissue bony and hardware Patient is progressing slowly from the surgery. The cultures have come positive and infectious disease is following closely. The growth is sensitive to cefepime and the patient is planning for PICC line placement. She has been off her request and we'll hopefully get her PICC line tomorrow. Once his functional we'll continue her IV antibiotics hopefully at home. The patient is on significant oral pain medications at home and this certainly has translated to difficulty with her pain control. Hospital. She does appear comfortable we'll try to wean down these medications as much as possible. I discussed this with her and discussed bodies dependence with narcotics and she is aware. She will try to wean these down and stretch out the time between her medications as best as possible. We will continue to increase the patient's mobilization with therapy. We will continue pain control with oral or IV medications. We'll continue to follow patient closely.
[2020-02-06] MEDS: HYDROmorphone 0.5 MG/0.5 ML SYRINGE IVP PRN ×3 (07:56→22:31)
[2020-02-06] MEDS: GABAPENTIN 400 MG CAP PO SCH ×3 (08:01→21:48)
[2020-02-06] MEDS: NICOTINE 21MG/24HR PATCH TRANSDERM SCH (08:01)
[2020-02-06] MEDS: LACOSAMIDE 50 MG TABLET PO SCH ×2 (08:02→21:45)
[2020-02-06] MEDS: HYDROCORTISONE 10 MG TAB PO SCH ×2 (08:03→21:44)
[2020-02-06] MEDS: METHOCARBAMOL 750 MG TAB PO SCH ×3 (08:04→21:48)
[2020-02-06] MEDS: POTASSIUM CHLORIDE ER 20 MEQ TAB.ER PO SCH ×2 (08:12→21:47)
[2020-02-06] MEDS: SENNOSIDES-DOCUSATE SODIUM 1 EACH TAB PO SCH (08:12)
[2020-02-06] MEDS: CEFEPIME 2 GM in SODIUM CHLORIDE 0.9% 100 ML IVPB SCH ×2 (08:14→21:41)
[2020-02-06] MEDS: oxyCODONE-APAP 10-325MG 1 EACH TAB PO PRN ×3 (08:45→23:39)
[2020-02-06] MEDS: MORPHINE SULFATE ER 60 MG TABLET PO SCH ×2 (10:42→21:46)
--- NOTE | 2020-02-06 10:46 | P.PN ---
Subjective Progress Note Date: 02/06/20 Karlos Rojo is a 50 yo F with history of MS, fibromyalgia, chronic pain, hx DVT who is admitted with persistent drainage after excision of lumbar facet seroma. Pt had been experiencing increased low back pain and LE weakness. She underwent revision procedure yesterday with removal of a loose body and sanjuanita ridement of necrotic granulation tissue. Wound culture was sent which is growing gram negative bacilli. Today she reports significant improvement in her low back pain but still having some. She is on cefepime and vancomycin. 02/04/2020 patient reports dressing was saturated earlier this morning, re quiring dressing change. T-max 99, WBC decreased to 13.3. Pain controlled on med regimen as per orthopedic surgery. Denies chest pain, palpitations or shortness of breath. Good diet intake with no nausea vomiting or diarrhea. Blood sugars controlled. Denies abdominal pain. Currently maintained on cefepime and vancomycin. Blood cultures reporting gram-negative bacilli. 02/05/2020 Wound cultures currently reporting enterococcus cloacae. Afebrile, T-max 99.6, WBC 13.4. Vancomycin discontinued, Maintained on cefepime. Dressing changed approximately 7 hours ago, clean dry with no drainage currently. Pain controlled. Denies chest pain, palpitations or shortness of breath. 02/06/2020 dressing clean dry and intact, recently changed by orthopedic spine surgery. Eliquis on hold with PICC line placement pending. Maintained on cefepime. Afebrile. Denies chest pain, palpitations or shortness of breath. Pain currently controlled. Denies chest pain, palpitations or shortness of breath. Minimal wheezing yesterday, subsided. Objective - Vital Signs Vital signs: Vital Signs Temp 98.5 F 02/06/20 07:00 Pulse 90 02/06/20 07:00 Resp 18 02/06/20 08:00 BP 98/60 02/06/20 07:00 Pulse Ox 95 02/06/20 07:00 Intake & Output 02/05/20 02/06/20 02/06/20 18:59 06:59 18:59 Intake Total 600 2341 Output Total 2340 1900 Balance -1740 441 Weight 109 kg Intake: Oral 600 2341 Output: Urine 2340 1900 Other: Voiding Method Toilet Toilet # Voids 1 1 - Exam General: obese, well developed, sitting up in bed, NAD. Eyes: PERRL, EOMI, conjunctiva normal HENT: normocephalic, mucus membranes moist Neck: supple, no JVD Lungs: normal respiratory effort, no rhonchi, rales or wheezes. CV: Regular rate and rhythm, no murmur. Peripheral pulses 2+ Abdomen: soft, nondistended, no organomegaly Skin: warm and dry. Dressing clean dry and intact Neuro: A&Ox3, normal mood and affect. LE str / Microbiology 02/02/20 14:10 Back Gram Stain - Final 02/02/20 14:10 Back Wound Culture - Final Enterobacter cloacae 02/02/20 14:10 Back Anaerobic Culture - Preliminary 02/02/20 14:10 Back Anaerobic Culture - Preliminary 02/02/20 14:10 Back Gram Stain - Final 02/02/20 14:10 Back Wound Culture - Final Enterobacter cloacae 02/02/20 14:10 Back Fungal Culture - Preliminary 02/02/20 14:10 Back Fungal Culture - Preliminary - Labs CBC & Chem 7: 02/05/20 05:53 02/06/20 05:40 Labs: Abnormal Lab Results - Last 24 Hours (Table) 02/06/20 Range/Units 05:40 Creatinine 0.50 L (0.52-1.04) mg/dL Microbiology - Last 24 Hours (Table) 02/02/20 14:10 Gram Stain - Final Back Wound Culture - Final Enterobacter cloacae Assessment and Plan Assessment: (1) lumbar spine seroma with persistent drainage. status post I&D . Wound culture reporting Enterobacter cloacae (2)Multiple sclerosis Current Visit: Yes Status: Acute Code(s): G35 - MULTIPLE SCLEROSIS SNOMED Code(s): 69158947 (3) fibromyalgia (4) Bilateral leg weakness Current Visit: No Status: Acute Code(s): R29.898 - [facility] SYMPTOMS AND SIGNS INVOLVING THE MUSCULOSKELETAL SYSTEM SNOMED Code(s): 0922858 (5) hypothyroidism (6) history of DVT on Eliquis (7)COPD (chronic obstructive pulmonary disease) Current Visit: No Status: Acute Code(s): J44.9 - CHRONIC OBSTRUCTIVE PULMONARY DISEASE, UNSPECIFIED SNOMED Code(s): 67422104 Plan: Continue on current medication regime ,monitoring and symptomatic treatment. Eliquis remains on hold, PICC line placement pending. Maintain antibiotics of cefepime as per ID. Pain management. Continue aggressive pulmonary toileting with incentive spirometer reinforced.PT/OT. Discharge planning in progress pending PICC line placement. The impression and plan of care has been dictated as directed. : I performed a history and examination of this patient, discussed the same with the dictator. I agree with the dictator's note ,documented as a scribe. Any additional findings or plans will be noted.
[2020-02-06] MEDS ORDERED: LIDOCAINE 1% INJ 10MG/ML (20 ML MDV) ONE (14:01)
[2020-02-06] MEDS ORDERED: LIDOCAINE 1% INJ 10MG/ML (20 ML MDV) SQ ONE (14:08)
--- NOTE | 2020-02-06 15:37 | PN ---
PROGRESS NOTE DATE OF SERVICE: 02/06/2020 REASON FOR FOLLOWUP: Lumbar spine infection with enterobacter. INTERVAL HISTORY: The patient is currently afebrile. The patient is breathing comfortably. Overall drainage from the lumbar spine surgery has decreased. The patient denies having any chest pain or shortness of breath or cough. No abdominal pain or diarrhea. PHYSICAL EXAMINATION: Blood pressure is 98/60 with a pulse of 90, temperature 98.5. She is 95% on room air. General description is a middle-aged female up in the bed in no distress. RESPIRATORY SYSTEM: Unlabored breathing. Clear to auscultation anteriorly. HEART: S1, S2. Regular rate and rhythm. ABDOMEN: Soft. No tenderness. The lumbar incision is currently dressed up. No obvious drainage on the dressing. LABS: Hemoglobin is 11.6, white count 13.4, creatinine 0.50. Blood culture negative. DIAGNOSTIC IMPRESSION AND PLAN: Patient with a lumbar spine infection post decompression surgery, status post removal of the hardware. Culture with enterobacter. Blood culture negative. She is on cefepime 2 grams q.12; to continue with a PICC line for a total of 6 weeks. Continue to monitor her CBC, BMP and sedimentation rate. Prescription has been provided to the briefcase sewer to work on the antibiotic arrangement. MMODL / IJN: [id number] /
--- NOTE | 2020-02-06 15:51 | IR ---
EXAMINATION TYPE: IR cvc insert >=5 years DATE OF EXAM: 02/06/2020 COMPARISON: NONE CLINICAL HISTORY: Infection Needs long-term intravenous access for antibiotics. PROCEDURE: Hand hygiene obtained with soap and water and alcohol-based hand rub. After informed consent, the skin overlying the left basilic vein was localized with ultrasound and no tonie to be compressible and patent. An ultrasound image was obtained and submitted on the patient's c john. The overlying skin was prepped and draped and Lidocaine was used for local anesthesia. A skin manuel was made with a scalpel. Access was gained to the vein under ultrasound guidance with a 21 gau ge needle and a 0.018 inch wire was advanced. Access site was dilated with Peel-Away sheath and cath eter tailored to the appropriate length and advanced such that the distal tip is at the cavoatrial ju nction. Spot image was obtained verifying placement. Catheter was fixed to the skin and a sterile d ressing was placed following hemostasis. Catheter was aspirated and flushed with saline. Patient wa s discharged in stable condition without complication. Maximal barrier technique is utilized. Ultras ound image is documented on the chart. Ultrasound used with sterile technique. Fluoro time and fluoroscopic images submitted to document procedure: 75 intraoperative C-arm images d ocument the procedure, 0.7 minutes fluoroscopy time IMPRESSION: STATUS POST ULTRASOUND AND FLUOROSCOPIC GUIDED PICC LINE PLACEMENT, READY FOR USE. THIS PROCEDURE WAS PERFORMED BY THE UNDERSIGNED.
[2020-02-06] MEDS: ONDANSETRON 4 MG TAB PO PRN (18:16)
[2020-02-06] MEDS: LORazepam 1 MG TAB PO PRN (18:16)
[2020-02-06] MEDS: SODIUM CHLORIDE 0.9% 1,000 ML IV SCH (20:17)
[2020-02-06] MEDS: DULoxetine HCL 30 MG CAPSULE.DR PO SCH (21:44)
[2020-02-06] MEDS: MAGNESIUM OXIDE 400 MG TAB PO SCH (21:45)
[2020-02-06] MEDS: MELOXICAM 7.5 MG TAB PO SCH (21:45)
[2020-02-06] MEDS: MONTELUKAST 10 MG TAB PO SCH (21:46)
[2020-02-07] MEDS: SODIUM CHLORIDE 0.9% 1,000 ML IV SCH (01:32)
[2020-02-07] MEDS: oxyCODONE-APAP 10-325MG 1 EACH TAB PO PRN (05:26)
[2020-02-07] MEDS: LEVOTHYROXINE 125 MCG TAB PO SCH (06:38)
[2020-02-07] MEDS: PANTOPRAZOLE 40 MG TABLET PO SCH (06:38)
[2020-02-07] MEDS: FUROSEMIDE 20 MG TAB PO PRN (06:39)
[2020-02-07 06:40] VITALS: RESP 18
[2020-02-07] MEDS: CEFEPIME 2 GM in SODIUM CHLORIDE 0.9% 100 ML IVPB SCH (07:03)
--- NOTE | 2020-02-07 07:11 | P.DS ---
Providers Date of admission: 02/04/20 13:01 Attending physician: Ulysses Olivera Consults: 02/02/20 14:12 Consult Physician Routine Consulting Provider: Richy Palomino Consult Reason/Comments: medical mangement Do you want consulting provider notified?: Yes 02/02/20 14:17 Consult Physician Routine Consulting Provider: Devante Reich Consult Reason/Comments: lumbar spine drainage s/p I&D Do you want consulting provider notified?: Yes Primary care physician: Stated None Hospital Course: The patient presented on the day of admission as per their operative note. She underwent irrigation and debridement lumbar spine wound infection. Results of of the wound cultures have come back positive with Enterobacter cloacae. She's been followed closely with infectious disease and is on IV antibiotics as per infectious disease with her PICC line which was placed yesterday. Patient says that her back overall feels okay. She has been able to work around her room. She says her legs are doing well. She had initially undergone laminectomy decompression for her severe stenosis lower extremity Pain approximatly 4 weeks ago. Physical Exam The incision site is clean and the nery are intact There is no erythema . There is still serosanguineous drainage. There is no obvious purulence Abdomen soft and nontender. Chest has good excursion with deep inspiration and expiration. The patient has active and passive range of motion intact at the upper and lower extremities. There is no acute change in neurologic status. She has sustained dorsiflexion plantar flexion and EHL. Her thighs and calves soft and nontender. Hospital Course Postoperative day #5 status post irrigation and debridement lumbar spine wound infection. Now 4 weeks status post laminectomy decompression L4 5 for her severe spinal stenosis and lower extremity radiculopathy and weakness The patient has been making some progress postoperatively. The patient is continuing her IV antibiotics with cefepime via her PICC line as per infectious disease. She is scheduled for regular course of treatment likely for 6 weeks as per infectious disease. They feel is okay for discharge with her PICC line and antibiotics. The patient has been able to advance their diet, and is tolerating diet adequately. The pain was initially controlled with IV medications and is now controlled appropriately with oral medications. The patient has been able to increase their mobilization. The patient is given instructions for appropriate wound care and regular dressing changes throughout the day. She is to ice the area and remain flat try to alleviate some of the drainage. She has been mobile and been found to be milking the area. She should try to allow the area to rest as best possible and is instructed as such. I think they are in stable condition for discharge today. They will be sent home with appropriate prescriptions. I answered their questions to the best of my ability in a language that they can understand and they are agreeable with the plan. They will follow up as directed in approximately 3 days.. Patient Condition at Discharge: Fair Plan - Discharge Summary New Discharge Prescriptions: New Cefepime HCl [Maxipime] 2 gm IV Q12H #80 vial No Action Gabapentin 800 mg PO TID Meloxicam [Mobic] 15 mg PO HS tiZANidine [Zanaflex] 4 mg PO TID PRN PRN Reason: Spasms LORazepam [Ativan] 1 mg PO TID PRN PRN Reason: Anxiety Zonisamide [Zonegran] 200 mg PO HS PRN PRN Reason: Migraine Headache Methocarbamol [Robaxin] 750 mg PO TID Potassium Chloride [Klor-Con 20] 20 meq PO BID Dextroamphetamine/Amphetamine [Adderall] 30 mg PO BID DULoxetine HCL [Cymbalta] 30 mg PO HS DULoxetine HCL [Cymbalta] 60 mg PO HS Hydrocortisone [Cortef] 10 mg PO BID Morphine Sulfate ER [Ms Contin] 60 mg PO BID Omeprazole 40 mg PO BID Levothyroxine Sodium 125 mcg PO DAILY Albuterol Nebulized [Ventolin Nebulized] 2.5 mg INHALATION RT-QID PRN PRN Reason: Shortness Of Breath Meclizine HCl 12.5 mg PO BID PRN PRN Reason: Vertigo Ondansetron HCl [Zofran] 4 mg PO Q8H PRN PRN Reason: nausea/vomiting Lacosamide [Vimpat] 100 mg PO BID traZODone HCL 100 mg PO HS PRN PRN Reason: Insomnia Magnesium Oxide 400 mg PO HS Rizatriptan Benzoate [Maxalt] 10 mg PO DAILY PRN PRN Reason: Migraine Headache Nicotine 21Mg/24Hr Patch [Habitrol] 1 patch TRANSDERM DAILY #30 patch Furosemide [Lasix] 20 mg PO BID PRN PRN Reason: Edema Apixaban [Eliquis] 5 mg PO BID rOPINIRole HCL [Requip] 0.5 mg PO BID Albuterol Inhaler [Ventolin Hfa Inhaler] 2 puff INHALATION RT-QID PRN PRN Reason: Shortness Of Breath Montelukast [Singulair] 10 mg PO DAILY oxyCODONE HCL/ACETAMINOPHEN [Percocet 10-325 mg] 1 tab PO Q6HR PRN #28 tab PRN Reason: Pain Montelukast [Singulair] 10 mg PO HS Discharge Medication List Gabapentin 800 mg PO TID 08/13/16 [History] LORazepam [Ativan] 1 mg PO TID PRN 05/21/17 [History] Meloxicam [Mobic] 15 mg PO HS 05/21/17 [History] tiZANidine [Zanaflex] 4 mg PO TID PRN 05/21/17 [History] Zonisamide [Zonegran] 200 mg PO HS PRN 10/15/17 [History] Methocarbamol [Robaxin] 750 mg PO TID 09/12/18 [History] Potassium Chloride [Klor-Con 20] 20 meq PO BID 09/30/18 [History] DULoxetine HCL [Cymbalta] 30 mg PO HS 11/13/18 [History] Dextroamphetamine/Amphetamine [Adderall] 30 mg PO BID 11/13/18 [History] DULoxetine HCL [Cymbalta] 60 mg PO HS 04/01/19 [History] Hydrocortisone [Cortef] 10 mg PO BID 04/01/19 [History] Morphine Sulfate ER [Ms Contin] 60 mg PO BID 04/01/19 [History] Albuterol Nebulized [Ventolin Nebulized] 2.5 mg INHALATION RT-QID PRN 12/03/19 [History] Lacosamide [Vimpat] 100 mg PO BID 12/03/19 [History] Levothyroxine Sodium 125 mcg PO DAILY 12/03/19 [History] Magnesium Oxide 400 mg PO HS 12/03/19 [History] Meclizine HCl 12.5 mg PO BID PRN 12/03/19 [History] Omeprazole 40 mg PO BID 12/03/19 [History] Ondansetron HCl [Zofran] 4 mg PO Q8H PRN 12/03/19 [History] Rizatriptan Benzoate [Maxalt] 10 mg PO DAILY PRN 12/03/19 [History] traZODone HCL 100 mg PO HS PRN 12/03/19 [History] Nicotine 21Mg/24Hr Patch [Habitrol] 1 patch TRANSDERM DAILY #30 patch 12/08/19 [Rx] Albuterol Inhaler [Ventolin Hfa Inhaler] 2 puff INHALATION RT-QID PRN 12/17/19 [History] Apixaban [Eliquis] 5 mg PO BID 12/17/19 [History] Furosemide [Lasix] 20 mg PO BID PRN 12/17/19 [History] rOPINIRole HCL [Requip] 0.5 mg PO BID 12/17/19 [History] Montelukast [Singulair] 10 mg PO DAILY 01/08/20 [History] oxyCODONE HCL/ACETAMINOPHEN [Percocet 10-325 mg] 1 tab PO Q6HR PRN #28 tab 01/09/20 [Rx] Montelukast [Singulair] 10 mg PO HS 02/02/20 [History] Cefepime HCl [Maxipime] 2 gm IV Q12H #80 vial 02/06/20 [Rx] Follow up Appointment(s)/Referral(s): Richy Palomino MD [STAFF PHYSICIAN] - 1 Week Ulysses Olivera DO [Doctor of Osteopathic Medicine] - 1 Week (Patient may follow-up with Dr. Eduardo Olivera at [facility] in 1 week following discharge. ) [facility], [REFERRING] - As Needed Devante Reich MD [STAFF PHYSICIAN] - 1 Week [facility], [NON-STAFF] - 02/08/20 Ambulatory/Diagnostic Orders: Basic Metabolic Panel [LAB.AMB] Location: None Selected C Reactive Protein [LAB.AMB] Location: None Selected Complete Blood Count w/diff [LAB.AMB] Location: None Selected Erythrocyte Sedimentation Rate [LAB.AMB] Location: None Selected Activity/Diet/Wound Care/Special Instructions: 1. Patient may ambulate to tolerance 2. Keep dressing over the incision site clean, dry, and intact 3. Patient may shower with dressing intact 4. Patient may remove dressing in 3 hours and may shower without a dressing intact if the incision site remains clean, dry, and intact 5. Keep nery intact at the surgical site; nery will be removed at her follow-up appointment 6. Take medications as prescribed 7. Avoid excessive bending, twisting, lifting activities; no lifting greater than 10 pounds attn staff: please give patient rx for lab work that is in her chart..thanks RT
[2020-02-07 08:31] VITALS: BP 108/78; PULSE 102; TEMP 98.7
[2020-02-07] MEDS: NICOTINE 21MG/24HR PATCH TRANSDERM SCH (08:53)
[2020-02-07] MEDS: LACOSAMIDE 50 MG TABLET PO SCH (08:55)
[2020-02-07] MEDS: GABAPENTIN 400 MG CAP PO SCH (08:55)
[2020-02-07] MEDS: POTASSIUM CHLORIDE ER 20 MEQ TAB.ER PO SCH (08:56)
[2020-02-07] MEDS: HYDROCORTISONE 10 MG TAB PO SCH (08:56)
[2020-02-07] MEDS: SENNOSIDES-DOCUSATE SODIUM 1 EACH TAB PO SCH (08:56)
[2020-02-07] MEDS: MORPHINE SULFATE ER 60 MG TABLET PO SCH (08:57)
[2020-02-07] MEDS: METHOCARBAMOL 750 MG TAB PO SCH (08:57)
[2020-02-07 11:57] LABS: Anisocytosis Slight; Basophils # (A) 0.1 k/uL (0-0.2); Basophils % (A) 0 %; Eosinophils # (A) 0.3 k/uL (0-0.7); Eosinophils % (A) 3 %; HCT 38.1 % (34.0-46.0); Hypochromasia Marked; Lymphocytes # (A) 2.1 k/uL (1.0-4.8); Lymphocytes % (A) 19 %; MCH 26.9 pg (25.0-35.0); MCHC 31.4 g/dL (31.0-37.0); MCV 85.6 fL (80.0-100.0); Mean Platelet Volume 8.9; Monocytes # (A) 0.7 k/uL (0-1.0); Monocytes % (A) 6 %; Neutrophils % (A) 71 %; Platelet Count 322 k/uL (150-450); RBC 4.45 m/uL (3.80-5.40); RDW 17.1 % (11.5-15.5); WBC 11.4 k/uL (3.8-10.6)
== END 2020-02-07 10:05 | disposition home health service (06) | DRG 857 ==
LOC: OR 12:08 → 5NMEDONC 14:50 → OR 02-03 03:49 → 6PED 02-04 10:24 → OBSVTOIN 02-04 13:01
PROVIDERS: ADMIT Orthopaedic Surgery Orthopaedic Surgery of the Spine; ATTEND Orthopaedic Surgery Orthopaedic Surgery of the Spine
PROC: 0WPL0YZ Removal of Other Device from Lower Back, Open Approach (ICD-10-PCS; principal; 2020-02-02 11:55)
PROC: 0QB00ZZ Excision of Lumbar Vertebra, Open Approach (ICD-10-PCS; principal; 2020-02-02 11:55)
PROC: 02HV33Z Insertion of Infusion Device into Superior Vena Cava, Percutaneous Approach (ICD-10-PCS; 2020-02-06)
DX: T81.42XA Infection following a procedure, deep incisional surgical site, initial encounter (principal); M96.842 Postprocedural seroma of a musculoskeletal structure following a musculoskeletal system procedure; D68.51 Activated protein C resistance; E27.3 Drug-induced adrenocortical insufficiency; H46.9 Unspecified optic neuritis; B96.89 Other specified bacterial agents as the cause of diseases classified elsewhere; Y83.4 Other reconstructive surgery as the cause of abnormal reaction of the patient, or of later complication, without mention of misadventure at the time of the procedure; G35 Multiple sclerosis; H91.90 Unspecified hearing loss, unspecified ear; I50.9 Heart failure, unspecified; J44.9 Chronic obstructive pulmonary disease, unspecified; F17.210 Nicotine dependence, cigarettes, uncomplicated; E66.9 Obesity, unspecified; Z68.38 Body mass index [BMI] 38.0-38.9, adult; E03.9 Hypothyroidism, unspecified; E78.5 Hyperlipidemia, unspecified; M79.7 Fibromyalgia; T38.0X5A Adverse effect of glucocorticoids and synthetic analogues, initial encounter; Z87.440 Personal history of urinary (tract) infections; H40.9 Unspecified glaucoma; Z98.51 Tubal ligation status; F90.9 Attention-deficit hyperactivity disorder, unspecified type; Z83.2 Family history of diseases of the blood and blood-forming organs and certain disorders involving the immune mechanism; Z80.49 Family history of malignant neoplasm of other genital organs; M19.90 Unspecified osteoarthritis, unspecified site; Z87.01 Personal history of pneumonia (recurrent); G47.33 Obstructive sleep apnea (adult) (pediatric); Z99.89 Dependence on other enabling machines and devices; G89.29 Other chronic pain; G47.00 Insomnia, unspecified; H93.13 Tinnitus, bilateral; L71.9 Rosacea, unspecified; G56.00 Carpal tunnel syndrome, unspecified upper limb; Z79.01 Long term (current) use of anticoagulants; Z79.1 Long term (current) use of non-steroidal anti-inflammatories (NSAID); Z79.890 Hormone replacement therapy; Z79.899 Other long term (current) drug therapy; Z88.1 Allergy status to other antibiotic agents; Z88.2 Allergy status to sulfonamides; Z88.8 Allergy status to other drugs, medicaments and biological substances; Z82.49 Family history of ischemic heart disease and other diseases of the circulatory system; Z86.718 Personal history of other venous thrombosis and embolism; R41.3 Other amnesia
CPT/HCPCS: 36573; 80048; 80053; 80202; 82565; 83605; 85025; 85610; 85652; 86140; 87040; 87070; 87075; 87077; 87102; 87116; 87186; 87205; 87206

== ENCOUNTER 2020-02-25 13:41 | Inpatient (IN) | payer MEDICARE, OTHER ==
[2020-02-24 14:12] VITALS: BMI 38.7
[~2020-02-25 13:41] MED LIST changes: +FAMOTIDINE 20 MG/2 ML VIAL IV PRN; +ONDANSETRON 4 MG/2 ML VIAL ONE; +SODIUM CHLORIDE 0.9% IRRIGATIO 1,000 ML IRRIGATION ONE; +fentaNYL (PF) 50 MCG/ML 2 ML AMP IV PRN
[2020-02-25] MEDS: LACTATED RINGERS 1,000 ML IV SCH ×3 (14:00→22:33)
[2020-02-25] MEDS ORDERED: fentaNYL (PF) 50 MCG/ML 2 ML AMP ONE (14:31)
[2020-02-25] MEDS ORDERED: SUCCINYLCHOLINE CHLORIDE 100 MG/5 ML SYR IV ONE (14:31)
[2020-02-25] MEDS ORDERED: NALOXONE 0.4 MG/ML 1 ML VIAL ONE (14:31)
[2020-02-25] MEDS ORDERED: HYDROmorphone (PF) 1 MG/ML ONE (14:31)
[2020-02-25] MEDS ORDERED: PHENYLEPHRINE-0.9% NACL SYG 1 MG/10 ML SYRINGE ONE (14:31)
[2020-02-25] MEDS ORDERED: PROPOFOL 10 MG/ML 20 ML VIAL IV ONE (14:31)
[2020-02-25] MEDS ORDERED: KETAMINE 10 MG/ML 20 ML VIAL ONE (14:31)
[2020-02-25] MEDS ORDERED: MIDAZOLAM 2 MG/2 ML VIAL ONE (14:31)
[2020-02-25] MEDS ORDERED: LIDOCAINE 1% INJ 10MG/ML (20 ML MDV) ONE (14:31)
[2020-02-25 14:35] LABS: Glucose,Whole Blood 117 mg/dL (75-99)
[2020-02-25] MEDS ORDERED: LIDOCAINE 0.5%-EPI 1:200,000 50 ML VIAL SQ ONE (14:35)
[2020-02-25] MEDS ORDERED: LACTATED RINGERS 1,000 ML IV ONE ×2 (14:35)
[2020-02-25 14:59] LABS: Anisocytosis Slight; Basophils # (A) 0.1 k/uL (0-0.2); Basophils % (A) 0 %; Eosinophils # (A) 0.4 k/uL (0-0.7); Eosinophils % (A) 3 %; HCT 41.6 % (34.0-46.0); HGB 12.6 gm/dL (11.4-16.0); Hypochromasia Slight; Lymphocytes # (A) 2.2 k/uL (1.0-4.8); Lymphocytes % (A) 15 %; MCH 24.7 pg (25.0-35.0); MCHC 30.4 g/dL (31.0-37.0); MCV 81.3 fL (80.0-100.0); Mean Platelet Volume 7.3; Monocytes # (A) 0.6 k/uL (0-1.0); Monocytes % (A) 4 %; Neutrophils # (A) 10.8 k/uL (1.3-7.7); Neutrophils % (A) 76 %; Platelet Count 291 k/uL (150-450); Poikilocytosis Slight; RBC 5.11 m/uL (3.80-5.40); RDW 16.8 % (11.5-15.5); WBC 14.2 k/uL (3.8-10.6)
[2020-02-25 15:13] LABS: African American GFR (CKD) >90 (>60 ml/min/1.73 sqM); Anion Gap 7 mmol/L; Blood Urea Nitrogen 17 mg/dL (7-17); Calcium 9.4 mg/dL (8.4-10.2); Carbon Dioxide 30 mmol/L (22-30); Chloride 100 mmol/L (98-107); Glucose 109 mg/dL (74-99); Non-African American GFR(CKD) >90 (>60 ml/min/1.73 sqM); Potassium 3.9 mmol/L (3.5-5.1); Sodium 137 mmol/L (137-145)
[2020-02-25] MEDS ORDERED: BENZOCAINE/MENTHOL LOZENG 1 EACH LOZENGE MUCOUS MEM PRN (15:29)
[2020-02-25] MEDS ORDERED: MAGNESIUM HYDROXIDE 2,400 MG/10 ML CUP PO PRN (15:29)
[2020-02-25] MEDS ORDERED: HYDROcodone/APAP 5-325MG 1 EACH TAB PO PRN ×2 (15:29)
[2020-02-25] MEDS ORDERED: ONDANSETRON 4 MG/2 ML VIAL IVP PRN (15:29)
[2020-02-25] MEDS ORDERED: ALBUTEROL NEBULIZED 2.5 MG/3 ML INHALATION PRN (15:32)
[2020-02-25] MEDS ORDERED: MECLIZINE 12.5 MG TAB PO PRN (15:32)
[2020-02-25] MEDS ORDERED: FUROSEMIDE 20 MG TAB PO PRN (15:32)
[2020-02-25] MEDS ORDERED: ALBUTEROL HFA INHALER INHALATION PRN (15:32)
[2020-02-25] MEDS ORDERED: ONDANSETRON 4 MG TAB PO PRN (15:32)
[2020-02-25] MEDS ORDERED: SUMAtriptan SUCCINATE 50 MG TAB PO PRN (15:32)
[2020-02-25] MEDS ORDERED: ZONISAMIDE 100 MG CAP PO PRN (15:32)
[2020-02-25] MEDS ORDERED: NON FORMULARY DRUG (Cefepime Hcl [Maxipime] 2 GM) IV SCH (15:45)
--- NOTE | 2020-02-25 15:48 | P.OP ---
Date of Procedure: 02/25/20 Preoperative Diagnosis: Infected lumbar spine wound, deep History of severe spinal stenosis with lower extremity weakness, status post laminectomy decompression approximately 6 weeks out History of lumbar spine irrigation and excisional debridement approximately 3 weeks out Postoperative Diagnosis: Same Anesthesia: GETA Pathology: other (Superficial cultures 2 and deep culture 1 sent to microbiology) Condition: stable Disposition: PACU Description of Procedure: BRIEF OPERATIVE NOTE Preoperative Diagnosis:Infected lumbar spine wound, deep History of severe spinal stenosis with lower extremity weakness, status post laminectomy decompression approximately 6 weeks out History of lumbar spine irrigation and excisional debridement approximately 3 weeks out Postoperative Diagnosis: Persistent Infected lumbar spine wound, deep History of severe spinal stenosis with lower extremity weakness, status post laminectomy decompression approximately 6 weeks out History of lumbar spine irrigation and excisional debridement approximately 3 weeks out Procedure: Repeat irrigation and excisional debridement of lumbar spine wound, superficial approximately 15 x 8 x 5 cm Placement of iodoform packing gauze and lumbar spine with Surgeon: Dr. Olivera District Director: Jorge VIRGEN who is present throughout the entire the case persistence during positioning, dissection, exposure, visualization, and all crucial elements of the case as well as closure. Anesthesia: General anesthesia per Dr. Alvarado Estimated blood loss: Approximately 50 mL Complications: None apparent Components implanted: None Disposition: To recovery room in good stable condition. OPERATIVE INDICATIONS The patient has been having issues in their lower back and lower extremities. The patient was initially counseled in regards to severe spinal stenosis lower extremity weakness and inability to ambulate. She was found have severe symptoms correlated well with her severe spinal stenosis and underwent decompression at her lumbar spine a [place] 6 weeks ago with our service. She initially had a Coflex intralaminar stabilizer placed as well. Unfortunately the patient developed persistent drainage at the wound site and underwent irrigation and excisional debridement approximately 3 weeks ago and removal of the deep hardware. She had positive culture results and has been on IV antibiotics with cefepime since that time via PICC line as managed by infectious disease. She had shown some early signs of progress however she was having some recurrent drainage at the site. She is not having dehiscence of the incision is having persistent serous yellow clear drainage on her dressing and some superficial breakdown at the superior aspect of the incision site area she had continued swelling without relief of the drainage. We tried continued IV antibiotics and local wound care however the drainage persisted. She is not having severe erythema she is not having fevers. The patient has been through conservative treatment. With the persistent drainage and the continued swelling was obvious that the person had significant fluid elected underneath her skin and we were worried about the deep tissue structures. She was continue her IV antibiotics we felt that the best course for alleviating her number spinal infection would be to repeat irrigation and excisional debridement of the lumbar spine wound. The patient has a long history of Occasions with surgery including wound infections postoperatively area we have had some difficulty with specific complaints dates for the patient but we have been able to follow her closely. We discussed various treatment options including surgery, and the patient wishes to proceed with surgery We discussed the risk, patient's alternatives and benefits of surgery including but not limited to, risk of bleeding risk of infection, risk of need for further surgery, risk of decreased, loss of motion, loss of function, nerve damage, paralysis, heart attack, blindness and . OPERATIVE SUMMARY After discussing all the risks, patient alternatives and benefits at length, the patient elected to proceed with surgical intervention, signed informed consent, and presented for their procedure. The patient was seen and examined in the preoperative holding area and the surgical site was marked. The patient was given antibiotics and brought to the operating room. The patient was sedated and intubated by anesthesia in standard fashion. The patient was positioned on to the operating room table in a prone position on the appropriate frame which was well-padded and well molded. We were careful to pad any bony prominences and pressure points. We were careful to maintain the patient's cervical spine and good neutral alignment and position throughout. The patient was prepped and draped in a normal standard fashion. The wound site was easily identified as were some nery remaining at the site. An appropriate timeout and keystone protocol performed. We were able to proceed with the surgery. An incision was made at the midline with a long ellipse excising the mildly denuded prior scar and wound site to a good surface. Once we're beyond the dermis there was a large collection of serous annulus fluid approximately 150 mL camming from the subcutaneous space. It was not foul or malodorous. It was stenotic grossly purulent. We took cultures 2 of the subcutaneous space. There is granulation tissue around the area which was dissected and excised and removed. I was able to get down to a relatively decent bleeding surface and clean tissue at the subcutaneous space and over the fascia. The suture in the fascia was still present but there was some loosening of the fascia at the superficial aspect. It was not grossly dehisced. The was one small rent at the superior aspect of the fascia and a deep culture was taken at that space as well. There is no gross pus extruding from the area there is no further fluid extruding from the area deep. Wound was copiously irrigated and suctioned dry with 2 L of irrigation. I excised any denuded tissue and removed the granular tissue as well to get a good surface for healing. The wound was again irrigated and suctioned dry. We're able to proceed with closure. A few deep stitches were placed with #1 PDS. I packed the area with 3 separate pieces of iodoform gauze. I left portions of the gauze outside the incision site for removal later. Further subcu stitches were placed with 2-0 PDS. We are careful to not stitch in the form DOS. [place] were also placed at the skin being careful not to staple in the PDS drain. The wound was cleaned and dried and dressed with the appropriate dressing. The drapes were broken down. The patient was gently rolled back onto their hospital bed being careful to maintain their cervical spine and good neutral alignment and position. They were woken up by anesthesia, extubated, and brought to the recovery room in good stable condition. The patient will be admitted to the hospital for observation and for appropriate postoperative care, medical management and monitoring. We'll have to continue h er wound management. Will have infectious disease follow her and continue her cefepime regimen. We will follow her cultures closely. We will continue to follow them closely about the postoperative course.
[2020-02-25] MEDS: GABAPENTIN 400 MG CAP PO SCH ×2 (17:37→21:16)
[2020-02-25] MEDS: HYDROmorphone 1 MG/ML 1 ML SYRINGE IVP PRN ×2 (17:37→23:06)
[2020-02-25] MEDS: SODIUM CHLORIDE 0.9% 1,000 ML IV SCH (17:42)
[2020-02-25] MEDS: METHOCARBAMOL 750 MG TAB PO SCH ×2 (18:29→21:20)
[2020-02-25] MEDS: oxyCODONE-APAP 10-325MG 1 EACH TAB PO PRN (18:31)
[2020-02-25] MEDS ORDERED: DULoxetine HCL 60 MG CAPSULE.DR PO SCH (21:00)
[2020-02-25] MEDS: CEFEPIME 2 GM in SODIUM CHLORIDE 0.9% 100 ML IVPB SCH (21:16)
[2020-02-25] MEDS: POTASSIUM CHLORIDE ER 20 MEQ TAB.ER PO SCH (21:16)
[2020-02-25] MEDS: MELATONIN 5 MG TABLET PO SCH (21:16)
[2020-02-25] MEDS: MAGNESIUM OXIDE 400 MG TAB PO SCH (21:16)
[2020-02-25] MEDS: MONTELUKAST 10 MG TAB PO SCH (21:17)
[2020-02-25] MEDS: MORPHINE SULFATE ER 60 MG TABLET PO SCH (21:17)
[2020-02-25] MEDS: DULoxetine HCL 30 MG CAPSULE.DR PO SCH (21:18)
[2020-02-25] MEDS: HYDROCORTISONE 10 MG TAB PO SCH (21:18)
[2020-02-25] MEDS: diphenhydrAMINE 50 MG CAP PO SCH (21:18)
[2020-02-26] MEDS: NICOTINE 14MG/24HR PATCH TRANSDERM SCH ×2 (00:25→08:04)
[2020-02-26] MEDS: oxyCODONE-APAP 10-325MG 1 EACH TAB PO PRN ×4 (00:27→23:11)
[2020-02-26] MEDS: GABAPENTIN 400 MG CAP PO SCH ×3 (01:00→21:20)
[2020-02-26] MEDS: HYDROmorphone 1 MG/ML 1 ML SYRINGE IVP PRN ×3 (02:34→15:14)
[2020-02-26] MEDS: KETOROLAC 30 MG/ML 1 ML VIAL IVP PRN ×3 (05:02→21:36)
[2020-02-26] MEDS: SODIUM CHLORIDE 0.9% 1,000 ML IV SCH ×2 (05:05→19:23)
[2020-02-26] MEDS: LEVOTHYROXINE 125 MCG TAB PO SCH (06:03)
[2020-02-26 07:52] LABS: Anisocytosis Slight; Basophils # (A) 0.1 k/uL (0-0.2); Basophils % (A) 0 %; Eosinophils # (A) 0.2 k/uL (0-0.7); Eosinophils % (A) 2 %; HCT 37.3 % (34.0-46.0); HGB 11.3 gm/dL (11.4-16.0); Hypochromasia Marked; Lymphocytes # (A) 2.2 k/uL (1.0-4.8); Lymphocytes % (A) 14 %; MCH 25.2 pg (25.0-35.0); MCHC 30.4 g/dL (31.0-37.0); MCV 82.9 fL (80.0-100.0); Mean Platelet Volume 7.4; Monocytes # (A) 0.8 k/uL (0-1.0); Monocytes % (A) 5 %; Neutrophils # (A) 11.5 k/uL (1.3-7.7); Neutrophils % (A) 77 %; Platelet Count 255 k/uL (150-450); RBC 4.49 m/uL (3.80-5.40); RDW 16.7 % (11.5-15.5)
[2020-02-26] MEDS: POTASSIUM CHLORIDE ER 20 MEQ TAB.ER PO SCH ×2 (08:05→21:21)
[2020-02-26] MEDS: LORATADINE 10 MG TAB PO SCH (08:06)
[2020-02-26] MEDS: APIXABAN 5 MG TAB PO SCH ×2 (08:07→21:21)
[2020-02-26] MEDS: diphenhydrAMINE 50 MG CAP PO SCH ×2 (08:07→21:19)
[2020-02-26] MEDS: PANTOPRAZOLE 40 MG TABLET PO SCH (08:07)
[2020-02-26] MEDS: MORPHINE SULFATE ER 60 MG TABLET PO SCH ×2 (08:07→21:20)
[2020-02-26] MEDS: CEFEPIME 2 GM in SODIUM CHLORIDE 0.9% 100 ML IVPB SCH ×2 (08:08→21:21)
[2020-02-26] MEDS: METHOCARBAMOL 750 MG TAB PO SCH ×4 (08:08→21:20)
[2020-02-26] MEDS: HYDROCORTISONE 10 MG TAB PO SCH ×2 (08:08→21:19)
[2020-02-26 08:09] LABS: African American GFR (CKD) >90 (>60 ml/min/1.73 sqM); Anion Gap 5 mmol/L; Blood Urea Nitrogen 15 mg/dL (7-17); Calcium 8.7 mg/dL (8.4-10.2); Carbon Dioxide 30 mmol/L (22-30); Chloride 98 mmol/L (98-107); Glucose 126 mg/dL (74-99); Non-African American GFR(CKD) >90 (>60 ml/min/1.73 sqM); Potassium 4.3 mmol/L (3.5-5.1); Sodium 133 mmol/L (137-145)
[2020-02-26] MEDS: SENNOSIDES-DOCUSATE SODIUM 1 EACH TAB PO SCH (08:10)
--- NOTE | 2020-02-26 08:52 | P.PN ---
Progress Note - Text Progress Note Date: 02/26/20 Postoperative day #1 Patient is seen and examined today at bedside. The patient has some pain around the surgical site as expected. Pain is being controlled with medication.she's not having any drowsiness she is conversant and followed commands well she was able to up in bed well Physical Exam Afebrile with stable vital signs Abdomen is soft nontender. Chest has good excursion deep and space expiration The surgical site had serosanguineous drainage on the dressing. There is some persistent drainage as expected. The iodoform packing is intact. I removed about half of the L4 and packing this morning and replaced dry dressing over the top of the site. Extremities have not had neurologic change from prior to surgery. Calves and thighs were soft nontender without evidence of DVT. Assessment/Plan Postoperative day #1 status post repeat irrigation and excisional debridement of lumbar spine wound infection Patient is progressing as expected from the surgery. I placed packing with iodoform gauze and I removed about half of it today. I'll plan remove more of it tomorrow. We should continue with the dressing intact and keep the packing intact today. She can reinforce dressing as needed. We will continue her IV antibiotics as per infectious disease We will continue to increase the patient's mobilization with therapy. We will continue pain control with oral or IV medications. We'll continue to follow patient closely.
[2020-02-26] MEDS ORDERED: ERGOCALCIFEROL 50,000 UNIT CAP PO SCH (09:00)
[2020-02-26] MEDS: HYDROmorphone 0.5 MG/0.5 ML SYRINGE IVP PRN ×2 (10:38→10:43)
[2020-02-26] MEDS: tiZANidine 4 MG TAB PO PRN (13:45)
[2020-02-26] MEDS: MORPHINE SULFATE ER 30 MG TABLET PO SCH (16:34)
[2020-02-26] MEDS: MELATONIN 5 MG TABLET PO SCH (21:20)
[2020-02-26] MEDS: DULoxetine HCL 30 MG CAPSULE.DR PO SCH (21:20)
[2020-02-26] MEDS: MONTELUKAST 10 MG TAB PO SCH (21:21)
[2020-02-26] MEDS: MAGNESIUM OXIDE 400 MG TAB PO SCH (21:21)
[2020-02-26] MEDS: LORazepam 1 MG TAB PO PRN (21:25)
[2020-02-26] MEDS: LACTATED RINGERS 1,000 ML IV SCH (23:21)
--- NOTE | 2020-02-26 23:35 | P.CONS ---
History of Present Illness - Reason for Consult Consult date: 02/26/20 medical eval - Chief Complaint drainage - History of Present Illness Karlos Rojo is a 50 yo F with history of MS, fibromyalgia, chronic pain, hx DVT who is admitted with persistent drainage after excision of lumbar facet seroma. Pt had been experiencing increased low back pain and LE weakness which improved after her seroma was excised but since that time has experienced persistent drainage. She was admitted for irrigation and closure with Dr. Olivera which she underwent yesterday without complication. Today, she complains of continued pain which is only incompletely controlled with medication. WBC elevated to 15k, wound culture with no growth at 24 hours. Review of Systems All systems: negative Constitutional: Reports malaise, Denies chills, Denies fever Eyes: denies blurred vision, denies pain Ears, nose, mouth and throat: Denies headache, Denies sore throat Cardiovascular: Denies chest pain, Denies shortness of breath Respiratory: Denies cough Gastrointestinal: Denies abdominal pain, Denies diarrhea, Denies nausea, Denies vomiting Genitourinary: Denies dysuria, Denies hematuria Musculoskeletal: Reports as per HPI, Reports gait dysfunction, Reports muscle weakness, Denies myalgias Integumentary: Reports wounds, Denies pruritus, Denies rash Neurological: Denies numbness, Denies weakness Psychiatric: Denies anxiety, Denies depression Endocrine: Denies fatigue, Denies weight change Past Medical History Past Medical History: Asthma, Blood Disorder, Heart Failure, COPD, Deep Vein Thrombosis (DVT), Eye Disorder, Fibromyalgia, Hearing Disorder / Deafness, Hyperlipidemia, Memory Impairment, Musculoskeletal Disorder, Neurologic Disorder, Osteoarthritis (OA), Pneumonia, Skin Disorder, Sleep Apnea/CPAP/BIPAP, Syncope, Thyroid Disorder Additional Past Medical History / Comment(s): Multiple sclerosis, bronchitis, factor 5 leiden, RUBI-does not wear device, DVT L leg 2013, hiatal hernia, hoarseness/leucoplasia, adrenal insufficiency/chronic steroid use, migraines, DJD, chronic back pain, bursitis, optic neuritis bilaterally, glaucoma , tinn itis, UTI, rosacia, sinus problems, insomnia, hypersomnia. carpal tunel, vertigo., states infection at back surgery site- with visiting nurse and is receiving IV antibiotic through PICC line . History of Any Multi-Drug Resistant Organisms: None Reported Year Discovered:: 2014 MDRO Source:: stomach Past Surgical History: Back Surgery, Bladder Surgery, Section, Cholecystectomy, Tubal Ligation Additional Past Surgical History / Comment(s): 09-24-18 bladder stimulator, 02/05/19 microlarygoscopy/bx, vocal cord polypectomies, cervical bx, bladder suspension, EGD with bx, colonoscopy,. Laminectomy with decompression (01/09/20), Drainage of seroma back (02/02/20).,. PICC line . Past Anesthesia/Blood Transfusion Reactions: Motion Sickness Additional Past Anesthesia/Blood Transfusion Reaction / Comm: occasional bad h eadaches. Past Psychological History: ADD/ADHD, Anxiety, Depression Additional Psychological History / Comment(s): . Smoking Status: Current every day smoker Past Alcohol Use History: None Reported Additional Past Alcohol Use History / Comment(s): 1 ppd smoker since 1981---has cut back and is attempting to use nicotine patch Past Drug Use History: None Reported Additional Drug Use History / Comment(s): occ marijuana use- - Past Family History Brother(s) Family Medical History: Deep Vein Thrombosis (DVT) Father Family Medical History: Deep Vein Thrombosis (DVT) Additional Family Medical History / Comment(s): Patient states that her father has no cardiac history but his father had previous TX's. Mother Family Medical History: Cancer, Deep Vein Thrombosis (DVT), Pulmonary Embolus Additional Family Medical History / Comment(s): Cervical cancer. Medications and Allergies Home Medications Medication Instructions Recorded Confirmed Type Gabapentin 800 mg PO TID 08/13/16 02/24/20 History LORazepam [Ativan] 1 mg PO TID PRN 05/21/17 02/24/20 History Meloxicam [Mobic] 15 mg PO HS 05/21/17 02/24/20 History tiZANidine [Zanaflex] 4 mg PO TID PRN 05/21/17 02/24/20 History Zonisamide [Zonegran] 200 mg PO HS PRN 10/15/17 02/24/20 History Methocarbamol [Robaxin] 750 mg PO TID 09/12/18 02/24/20 History Potassium Chloride [Klor-Con 20] 20 meq PO BID 09/30/18 02/24/20 History DULoxetine HCL [Cymbalta] 30 mg PO HS 11/13/18 02/24/20 History Dextroamphetamine/Amphetamine 30 mg PO BID 11/13/18 02/24/20 History [Adderall] DULoxetine HCL [Cymbalta] 60 mg PO HS 04/01/19 02/24/20 History Hydrocortisone [Cortef] 10 mg PO BID 04/01/19 02/24/20 History Morphine Sulfate ER [Ms Contin] 60 mg PO BID 04/01/19 02/24/20 History Albuterol Nebulized [Ventolin 2.5 mg INHALATION RT-QID PRN 12/03/19 02/24/20 History Nebulized] Levothyroxine Sodium 125 mcg PO DAILY 12/03/19 02/24/20 History Magnesium Oxide 400 mg PO HS 12/03/19 02/24/20 History Meclizine HCl 12.5 mg PO BID PRN 12/03/19 02/24/20 History Omeprazole 40 mg PO DAILY 12/03/19 02/24/20 History Ondansetron HCl [Zofran] 4 mg PO Q8H PRN 12/03/19 02/24/20 History Rizatriptan Benzoate [Maxalt] 10 mg PO DAILY PRN 12/03/19 02/24/20 History traZODone HCL 100 mg PO HS PRN 12/03/19 02/24/20 History Nicotine 21Mg/24Hr Patch [Habitrol] 1 patch TRANSDERM DAILY #30 patch 12/08/19 02/24/20 Rx Albuterol Inhaler [Ventolin Hfa 2 puff INHALATION RT-QID PRN 12/17/19 02/24/20 History Inhaler] Apixaban [Eliquis] 5 mg PO BID 12/17/19 02/24/20 History Furosemide [Lasix] 20 mg PO BID PRN 12/17/19 02/24/20 History rOPINIRole HCL [Requip] 0.5 mg PO BID 12/17/19 02/24/20 History Montelukast [Singulair] 10 mg PO HS 02/02/20 02/24/20 History Cefepime HCl [Maxipime] 2 gm IV Q12H #80 vial 02/06/20 02/24/20 Rx oxyCODONE HCL/ACETAMINOPHEN 1 tab PO Q6HR PRN 7 Days #28 tab 02/07/20 02/24/20 Rx [Percocet 10-325 mg] Ergocalciferol [Vitamin D2] 50,000 unit PO Q7D 02/24/20 02/24/20 History Loratadine 10 mg PO DAILY 02/24/20 02/24/20 History Melatonin 5 mg PO DAILY 02/24/20 02/24/20 History diphenhydrAMINE [Benadryl] 50 mg PO BID 02/24/20 02/24/20 History Allergies Allergy/AdvReac Type Severity Reaction Status Date / Time doxycycline Allergy Rash/Hives Verified 02/24/20 13:14 glatiramer (copolymer 1) Allergy Rapid Verified 02/24/20 13:14 [From Copaxone] Heart Rate,hives, skin flushing sulfamethoxazole Allergy blisters Verified 02/24/20 13:14 [From Bactrim] in mouth trimethoprim [From Bactrim] Allergy blisters Verified 02/24/20 13:14 in mouth steroids AdvReac genital Uncoded 02/24/20 13:14 burning & rashes but still takes steroids. Physical Exam Vitals: Vital Signs Temp Pulse Resp BP BP Pulse Ox 02/26/20 21:14 96 02/26/20 18:45 98.5 F 86 16 117/61 97 02/26/20 15:00 99.2 F 62 18 113/52 96 02/26/20 08:07 17 02/26/20 07:00 98.5 F 98 17 94/62 96 02/26/20 06:00 110 H 114/76 02/26/20 00:15 99.6 F 114 H 20 100/67 94 L Intake and Output 02/26/20 02/26/20 02/27/20 14:59 22:59 06:59 Other: Voiding Method Bedside Commode # Voids 3 1 General: well nourished, obese NAD. Vitals reviewed Eyes: PERRL, EOMI, conjunctiva normal HENT: normocephalic, mucus membranes moist Neck: supple, no JVD Lungs: normal respiratory effort, no wheezes or rales CV: Regular rate and rhythm, no murmur. Peripheral pulses 2+ Abdomen: soft, nondistended, no organomegaly Lymph: no cervical or axillary LAD Skin: warm and dry. Low back with granulation tissue, serous drainage Neuro: A&Ox3, normal mood and affect Results CBC & Chem 7: 02/26/20 06:46 02/26/20 06:46 Labs: Abnormal Lab Results - Last 24 Hours (Table) 02/26/20 02/26/20 Range/Units 06:46 06:46 WBC 15.0 H (3.8-10.6) k/uL Hgb 11.3 L (11.4-16.0) gm/dL MCHC 30.4 L (31.0-37.0) g/dL RDW 16.7 H (11.5-15.5) % Neutrophils # 11.5 H (1.3-7.7) k/uL Sodium 133 L (137-145) mmol/L Creatinine 0.50 L (0.52-1.04) mg/dL Glucose 126 H (74-99) mg/dL Microbiology - Last 24 Hours (Table) 02/25/20 15:20 Gram Stain - Preliminary Back Wound Culture - Preliminary 02/25/20 15:20 Gram Stain - Preliminary Back Wound Culture - Preliminary 02/25/20 15:20 Gram Stain - Preliminary Back Wound Culture - Preliminary 02/25/20 15:20 Anaerobic Culture - Preliminary Back 02/25/20 15:20 Anaerobic Culture - Preliminary Back 02/25/20 15:20 Anaerobic Culture - Preliminary Back Assessment and Plan (1) Fibromyalgia Current Visit: Yes Status: Acute Code(s): M79.7 - FIBROMYALGIA SNOMED C ode(s): 245438452 (2) Soft tissue infection of lumbar spine Current Visit: Yes Status: Acute Code(s): M79.89 - OTHER SPECIFIED SOFT TISSUE DISORDERS; B99.9 - UNSPECIFIED INFECTIOUS DISEASE SNOMED Code(s): 338439655 (3) Chronic low back pain Current Visit: No Status: Acute Code(s): M54.5 - LOW BACK PAIN; G89.29 - OTHER CHRONIC PAIN SNOMED Code(s): 510759017 (4) History of blood disorder Current Visit: No Status: Acute Code(s): Z86.2 - PRSNL HISTORY OF DIS OF THE BLD/BLD-FORM ORG/IMMUN MECHN SNOMED Code(s): 154617345 (5) Hyperlipidemia Current Visit: No Status: Acute Code(s): E78.5 - HYPERLIPIDEMIA, UNSPECIFIED SNOMED Code(s): 88539890 (6) Lumbar degenerative disc disease Current Visit: No Status: Acute Code(s): M51.36 - OTHER INTERVERTEBRAL DISC DEGENERATION, LUMBAR REGION SNOMED Code(s): 44105910 (7) Lumbar facet arthropathy Current Visit: No Status: Acute Code(s): M47.816 - SPONDYLOSIS W/O MYELOPATHY OR RADICULOPATHY, LUMBAR REGION SNOMED Code(s): 767405383 (8) Lumbosacral pain Current Visit: No Status: Acute Code(s): M54.5 - LOW BACK PAIN SNOMED Code(s): 637344325 (9) UTI (urinary tract infection) Current Visit: No Status: Acute Code(s): N39.0 - URINARY TRACT INFECTION, SITE NOT SPECIFIED SNOMED Code(s): 81655211 (10) Upper extremity weakness Current Visit: No Status: Acute Code(s): R29.898 - OTH SYMPTOMS AND SIGNS INVOLVING THE MUSCULOSKELETAL SYSTEM SNOMED Code(s): 191213596 Plan: 1. Lumbar spine seroma with persistent drainage. Operative management per Surgery Pain control. Continue with broad spectrum antibiotics and follow cultures 2. Multiple sclerosis. Continue adderall, ropinorole 3. Fibromyalgia. Continue home cymbalta, robaxin 4. Hypothyroid 5. Hx DVT. Continue eliquis
[2020-02-27] MEDS: oxyCODONE-APAP 10-325MG 1 EACH TAB PO PRN ×3 (05:52→19:47)
[2020-02-27] MEDS: LEVOTHYROXINE 125 MCG TAB PO SCH (05:53)
[2020-02-27] MEDS: SODIUM CHLORIDE 0.9% 1,000 ML IV SCH ×2 (07:09→22:04)
--- NOTE | 2020-02-27 07:10 | P.CONS ---
History of Present Illness - Reason for Consult Consult date: 02/26/20 Lumbar spine wound infection Requesting physician: Ulysses Olivera - Chief Complaint Pain and drainage from the back wound x days - History of Present Illness Patient is a 50-year-old female with a past medical history significant for chronic back pain and spinal stenosis in this patient who is status post lumbar laminectomy and spinal decompression about 6 weeks ago patient subsequently was admitted to the hospital on 02/02/2020 with the drainage from her spinal wound patient was taken back to the OR and status post debridement of the wound and removal of the hardware culture that time were positive for Enterobacter blood culture were negative patient did get a PICC line and she was advised six-week course of IV cefepime 2 g every 12 hours patient was advised to follow-up in the office one week post discharge from hospital however the patient did not make an appointment working for follow-up visit, patient apparently did have a follow-up with the surgeon and she was asked to have persistent drainage from her lumbar wound subsequently the patient has been readmitted to the hospital she was taken to the OR yesterday and is status post debridement of the lumbar wound and deep cultures she has been continued on cefepime and infectious disease was consulted for further management of antibiotic therapy. On today's evaluation that is 02/26/2020, patient denies having any fever or any chills she been complaining of pain into the lumbar spine area more of a dull aching at times. And he can be as high as 10 out of 10 with no significant radiation, patient be complaining of drainage from the sacral wound but no foul- smelling patient denies any problem with a PICC line and no diarrhea with antibiotic therapy Review of Systems Positive point has been mentioned in the HPI rest of the systems are negative Past Medical History Past Medical History: Asthma, Blood Disorder, Heart Failure, COPD, Deep Vein Thrombosis (DVT), Eye Disorder, Fibromyalgia, Hearing Disorder / Deafness, Hyperlipidemia, Memory Impairment, Musculoskeletal Disorder, Neurologic Disorder, Osteoarthritis (OA), Pneumonia, Skin Disorder, Sleep Apnea/CPAP/BIPAP, Syncope, Thyroid Disorder Additional Past Medical History / Comment(s): Multiple sclerosis, bronchitis, factor 5 leiden, RUBI-does not wear device, DVT L leg 2014, hiatal hernia, hoarseness/leucoplasia, adrenal insufficiency/chronic steroid use, migraines, DJD, chronic back pain, bursitis, optic neuritis bilaterally, glaucoma , tinnitis, UTI, rosacia, sinus problems, insomnia, hypersomnia. carpal tunel, vertigo., states infection at back surgery site- with visiting nurse and is receiving IV antibiotic through PICC line . History of Any Multi-Drug Resistant Organisms: None Reported Year Discovered:: 2013 MDRO Source:: stomach Past Surgical History: Back Surgery, Bladder Surgery, Section, Cholecystectomy, Tubal Ligation Additional Past Surgical History / Comment(s): 09-24-18 bladder stimulator, 02/05/19 microlarygoscopy/bx, vocal cord polypectomies, cervical bx, bladder suspension, EGD with bx, colonoscopy,. Laminectomy with decompression (01/09/20), Drainage of seroma back (02/02/20).,. PICC line . Past Anesthesia/Blood Transfusion Reactions: Motion Sickness Additional Past Anesthesia/Blood Transfusion Reaction / Comm: occasional bad headaches. Past Psychological History: ADD/ADHD, Anxiety, Depression Additional Psychological History / Comment(s): . Smoking Status: Current every day smoker Past Alcohol Use History: None Reported Additional Past Alcohol Use History / Comment(s): 1 ppd smoker since 1981---has cut back and is attempting to use nicotine patch Past Drug Use History: None Reported Additional Drug Use History / Comment(s): occ marijuana use- - Past Family History Brother(s) Family Medical History: Deep Vein Thrombosis (DVT) Father Family Medical History: Deep Vein Thrombosis (DVT) Additional Family Medical History / Comment(s): Patient states that her father has no cardiac history but his father had previous ND's. Mother Family Medical History: Cancer, Deep Vein Thrombosis (DVT), Pulmonary Embolus Additional Family Medical History / Comment(s): Cervical cancer. Medications and Allergies Home Medications Medication Instructions Recorded Confirmed Type Gabapentin 800 mg PO TID 08/13/16 02/24/20 History LORazepam [Ativan] 1 mg PO TID PRN 05/21/17 02/24/20 History Meloxicam [Mobic] 15 mg PO HS 05/21/17 02/24/20 History tiZANidine [Zanaflex] 4 mg PO TID PRN 05/21/17 02/24/20 History Zonisamide [Zonegran] 200 mg PO HS PRN 10/15/17 02/24/20 History Methocarbamol [Robaxin] 750 mg PO TID 09/12/18 02/24/20 History Potassium Chloride [Klor-Con 20] 20 meq PO BID 09/30/18 02/24/20 History DULoxetine HCL [Cymbalta] 30 mg PO HS 11/13/18 02/24/20 History Dextroamphetamine/Amphetamine 30 mg PO BID 11/13/18 02/24/20 History [Adderall] DULoxetine HCL [Cymbalta] 60 mg PO HS 04/01/19 02/24/20 History Hydrocortisone [Cortef] 10 mg PO BID 04/01/19 02/24/20 History Morphine Sulfate ER [Ms Contin] 60 mg PO BID 04/01/19 02/24/20 History Albuterol Nebulized [Ventolin 2.5 mg INHALATION RT-QID PRN 12/03/19 02/24/20 History Nebulized] Levothyroxine Sodium 125 mcg PO DAILY 12/03/19 02/24/20 History Magnesium Oxide 400 mg PO HS 12/03/19 02/24/20 History Meclizine HCl 12.5 mg PO BID PRN 12/03/19 02/24/20 History Omeprazole 40 mg PO DAILY 12/03/19 02/24/20 History Ondansetron HCl [Zofran] 4 mg PO Q8H PRN 12/03/19 02/24/20 History Rizatriptan Benzoate [Maxalt] 10 mg PO DAILY PRN 12/03/19 02/24/20 History traZODone HCL 100 mg PO HS PRN 12/03/19 02/24/20 History Nicotine 21Mg/24Hr Patch [Habitrol] 1 patch TRANSDERM DAILY #30 patch 12/08/19 02/24/20 Rx Albuterol Inhaler [Ventolin Hfa 2 puff INHALATION RT-QID PRN 12/17/19 02/24/20 History Inhaler] Apixaban [Eliquis] 5 mg PO BID 12/17/19 02/24/20 History Furosemide [Lasix] 20 mg PO BID PRN 12/17/19 02/24/20 History rOPINIRole HCL [Requip] 0.5 mg PO BID 12/17/19 02/24/20 History Montelukast [Singulair] 10 mg PO HS 02/02/20 02/24/20 History Cefepime HCl [Maxipime] 2 gm IV Q12H #80 vial 02/06/20 02/24/20 Rx oxyCODONE HCL/ACETAMINOPHEN 1 tab PO Q6HR PRN 7 Days #28 tab 02/07/20 02/24/20 Rx [Percocet 10-325 mg] Ergocalciferol [Vitamin D2] 50,000 unit PO Q7D 02/24/20 02/24/20 History Loratadine 10 mg PO DAILY 02/24/20 02/24/20 History Melatonin 5 mg PO DAILY 02/24/20 02/24/20 History diphenhydrAMINE [Benadryl] 50 mg PO BID 02/24/20 02/24/20 History Allergies Allergy/AdvReac Type Severity Reaction Status Date / Time doxycycline Allergy Rash/Hives Verified 02/24/20 13:14 glatiramer (copolymer 1) Allergy Rapid Verified 02/24/20 13:14 [From Copaxone] Heart Rate,hives, skin flushing sulfamethoxazole Allergy blisters Verified 02/24/20 13:14 [From Bactrim] in mouth trimethoprim [From Bactrim] Allergy blisters Verified 02/24/20 13:14 in mouth steroids AdvReac genital Uncoded 02/24/20 13:14 burning & rashes but still takes steroids. Physical Exam Vitals: Vital Signs Temp Pulse Pulse Pulse Resp BP BP 02/26/20 08:07 17 02/26/20 07:00 98.5 F 98 17 02/26/20 06:00 110 H 114/76 02/26/20 00:15 99.6 F 114 H 20 02/25/20 22:30 110 H 02/25/20 20:58 02/25/20 19:35 107 H 02/25/20 19:26 107 H 02/25/20 19:15 02/25/20 19:05 109 H 02/25/20 19:00 02/25/20 18:40 98.4 F 107 H 20 02/25/20 17:30 98.7 F 110 H 20 02/25/20 17:11 106 H 18 02/25/20 16:56 106 H 18 02/25/20 16:41 110 H 18 02/25/20 16:26 108 H 18 07/01/20 16:11 121 H 18 02/25/20 15:56 97 F L 127 H 16 02/25/20 13:58 97.9 F 108 H 20 95/56 BP Pulse Ox 02/26/20 08:07 02/26/20 07:00 94/62 96 02/26/20 06:00 02/26/20 00:15 100/67 94 L 02/25/20 22:30 91/60 95 02/25/20 20:58 102/64 02/25/20 19:35 105/70 90 L 02/25/20 19:26 105/70 90 L 02/25/20 19:15 108/89 02/25/20 19:05 105/66 02/25/20 19:00 110/89 02/25/20 18:40 98/63 92 L 02/25/20 17:30 121/77 91 L 02/25/20 17:11 104/57 92 L 02/25/20 16:56 104/63 92 L 02/25/20 16:41 114/66 92 L 02/25/20 16:26 114/66 92 L 02/25/20 16:11 118/70 97 02/25/20 15:56 148/70 98 02/25/20 13:58 93 L Intake and Output 02/25/20 02/26/20 02/26/20 22:59 06:59 14:59 Intake Total 200 Output Total 50 Balance 150 Intake: IV 200 Output: Estimated Blood Loss 50 Other: Voiding Method Bedside Commode Bedside Commode # Voids 1 1 Weight 108.862 kg GENERAL DESCRIPTION: Middle-aged female lying in bed, no distress. No tachypnea or accessory muscle of respiration use. HEENT: Shows Pallor , no scleral icterus. Oral mucous membrane is dry. No phar yngeal erythema or thrush NECK: Trachea central, no thyromegaly. LUNGS: Unlabored breathing. Clear to auscultation anteriorly. No wheeze or crackle. HEART: S1, S2, regular rate and rhythm. No loud murmur ABDOMEN: Soft, no tenderness , guarding or rigidity, no organomegaly EXTREMITIES: No edema of feet. SKIN: No rash, no masses palpable. Lumbar spine incision currently with the packing on minimal purulent drainage was noticed NEUROLOGICAL: The patient is awake, alert, oriented x3, mood and affect normal. Results CBC & Chem 7: 02/26/20 06:46 02/26/20 06:46 Labs: Abnormal Lab Results - Last 24 Hours (Table) 02/25/20 02/25/20 02/25/20 Range/Units 14:28 14:28 14:33 WBC 14.2 H (3.8-10.6) k/uL Hgb (11.4-16.0) gm/dL MCH 24.7 L (25.0-35.0) pg MCHC 30.4 L (31.0-37.0) g/dL RDW 16.8 H (11.5-15.5) % Neutrophils # 10.8 H (1.3-7.7) k/uL Sodium (137-145) mmol/L Creatinine (0.52-1.04) mg/dL Glucose 109 H (74-99) mg/dL POC Glucose (mg/dL) 117 H (75-99) mg/dL 02/26/20 02/26/20 Range/Units 06:46 06:46 WBC 15.0 H (3.8-10.6) k/uL Hgb 11.3 L (11.4-16.0) gm/dL MCH (25.0-35.0) pg MCHC 30.4 L (31.0-37.0) g/dL RDW 16.7 H (11.5-15.5) % Neutrophils # 11.5 H (1.3-7.7) k/uL Sodium 133 L (137-145) mmol/L Creatinine 0.50 L (0.52-1.04) mg/dL Glucose 126 H (74-99) mg/dL POC Glucose (mg/dL) (75-99) mg/dL Microbiology - Last 24 Hours (Table) 02/25/20 15:20 Gram Stain - Preliminary Back Wound Culture - Preliminary 02/25/20 15:20 Gram Stain - Preliminary Back Wound Culture - Preliminary 02/25/20 15:20 Gram Stain - Preliminary Back Wound Culture - Preliminary 02/25/20 15:20 Anaerobic Culture - Preliminary Back 02/25/20 15:20 Anaerobic Culture - Preliminary Back 02/25/20 15:20 Anaerobic Culture - Preliminary Back Assessment and Plan Assessment: 1-patient with the history of chronic back pain in this patient who is status post lumbar laminectomy and decompression surgery unfortunately complicated by development of infection in this patient status post removal of the hardware 3 weeks ago culture that were positive for Enterobacter unfortunately the patient never came to the office for follow-up and has been readmitted to hospital with persistent drainage and status post debridement with those culture to finalize 2-Patient with multiple antibiotic ALLERGIES that would limit the number of antibiotic safe to use (1) Osteomyelitis of lumbar spine Current Visit: Yes Status: Acute Code(s): M46.26 - OSTEOMYELITIS OF VERTEBRA, LUMBAR REGION SNOMED Code(s): 794075042 Plan: 1- cefepime 2 g every 12 hours while waiting for the cultures to finalize We will follow on clinical condition and cultures to further adjust medication if needed Thank you for this consultation will follow this patient with you Time with Patient: Greater than 30
[2020-02-27] MEDS: SENNOSIDES-DOCUSATE SODIUM 1 EACH TAB PO SCH (07:35)
[2020-02-27] MEDS: GABAPENTIN 400 MG CAP PO SCH ×3 (07:35→22:06)
[2020-02-27] MEDS: HYDROCORTISONE 10 MG TAB PO SCH ×2 (07:35→22:06)
[2020-02-27] MEDS: diphenhydrAMINE 50 MG CAP PO SCH ×2 (07:35→22:07)
[2020-02-27] MEDS: PANTOPRAZOLE 40 MG TABLET PO SCH (07:35)
[2020-02-27] MEDS: POTASSIUM CHLORIDE ER 20 MEQ TAB.ER PO SCH ×2 (07:36→22:05)
[2020-02-27] MEDS: APIXABAN 5 MG TAB PO SCH ×2 (07:36→22:05)
[2020-02-27] MEDS: CEFEPIME 2 GM in SODIUM CHLORIDE 0.9% 100 ML IVPB SCH ×2 (07:36→19:47)
[2020-02-27] MEDS: NICOTINE 14MG/24HR PATCH TRANSDERM SCH (07:36)
[2020-02-27] MEDS: LORATADINE 10 MG TAB PO SCH (07:36)
[2020-02-27] MEDS: MORPHINE SULFATE ER 60 MG TABLET PO SCH ×2 (07:36→22:05)
[2020-02-27] MEDS: METHOCARBAMOL 750 MG TAB PO SCH ×3 (07:36→22:06)
[2020-02-27] MEDS: KETOROLAC 30 MG/ML 1 ML VIAL IVP PRN (07:43)
--- NOTE | 2020-02-27 09:12 | P.PN ---
Progress Note - Text Progress Note Date: 02/27/20 Postoperative day #2 Patient is seen and examined today at bedside. The patient has some pain around the surgical site as expected. She is quite comfortable with her back pain and is able to move around in her room adequately. She still has persistent serous sinus drainage. Pain is being controlled with medication. Physical Exam Afebrile with stable vital signs Abdomen is soft nontender. Chest has good excursion deep and space expiration The incision site has persistent serosanguineous drainage. It does not appear purulent. Portions of the iodoform packing is removed there is still some left intact at all removed were No erythema there is no purulence. Extremities have not had neurologic change from prior to surgery. She has sustained dorsiflexion plantar flexion and EHL intact Calves and thighs were soft nontender without evidence of DVT. Assessment/Plan Postoperative day #2 status post repeat irrigation and excisional debridement of lumbar spine wound Patient is progressing as expected from the surgery. I removed more of the packing today and we will plan to remove the remainder of they are deformed tomorrow We will have wound care see her for recommendations and possible daily packing Continue antibiotics per medicine and infectious disease We will continue to increase the patient's mobilization with therapy. We will continue pain control with oral or IV medications. We'll continue to follow patient closely.
[2020-02-27] MEDS: LORazepam 1 MG TAB PO PRN ×2 (09:23→22:16)
[2020-02-27] MEDS: HYDROmorphone 1 MG/ML 1 ML SYRINGE IVP PRN ×3 (10:59→20:53)
[2020-02-27] MEDS: tiZANidine 4 MG TAB PO PRN (10:59)
[2020-02-27] MEDS: MORPHINE SULFATE ER 30 MG TABLET PO SCH (12:14)
[2020-02-27] MEDS: MAGNESIUM OXIDE 400 MG TAB PO SCH (22:05)
[2020-02-27] MEDS: MONTELUKAST 10 MG TAB PO SCH (22:05)
[2020-02-27] MEDS: MELATONIN 5 MG TABLET PO SCH (22:05)
[2020-02-27] MEDS: DULoxetine HCL 30 MG CAPSULE.DR PO SCH (22:06)
[2020-02-27] MEDS: LACTATED RINGERS 1,000 ML IV SCH (22:07)
--- NOTE | 2020-02-27 22:51 | PN ---
PROGRESS NOTE REASON FOR FOLLOW UP: Lumbosacral site infection. INTERVAL HISTORY: Patient is currently afebrile. Patient is breathing comfortably. Overall pain and discomfort to the sacral wound area has decreased, still having drainage. Though decrease in amount. No chest pain, shortness of breath or cough. No abdominal pain or diarrhea. On examination, vital signs stable. T-max 98. General description is a middle-aged female up in the bed in no distress. Respiratory system: Unlabored breathing and is clear to auscultation anteriorly. Heart S1, S2. Regular rate and rhythm. Abdomen soft, no tenderness. Surgical site covered with dressing. No drainage on the dressing. LABS: No new labs have been obtained today. Cultures obtained in the OR are so far negative. DIAGNOSTIC IMPRESSION AND PLAN: Patient with lumbar spine wound infection with previous culture positive for Enterobacter. The patient admitted to the hospital with more drainage and status post further debridement. However, those cultures so far negative. We will keep the patient on cefepime 2 g q.12h while waiting for repeat culture to finalize to determine discharge antibiotics. Continue supportive care. MMODL / IJN: [id number] /
--- NOTE | 2020-02-27 23:41 | P.PN ---
Subjective Progress Note Date: 02/27/20 She continues to drain from her surgical site, does not feel as painful as previous. Wound culture with no growth, she remains on empiric cefepime. Objective - Vital Signs Vital signs: Vital Signs Temp 98.0 F 02/27/20 19:29 Pulse 88 02/27/20 20:00 Resp 16 02/27/20 20:00 BP 97/66 02/27/20 19:29 Pulse Ox 95 02/27/20 19:29 Intake & Output 02/27/20 02/27/20 02/28/20 06:59 18:59 06:59 Other: Voiding Method Toilet Toilet # Voids 2 3 1 - Exam General: well nourished, well developed, NAD. Vitals reviewed Lungs: normal respiratory effort, no wheezes or rales CV: Regular rate and rhythm, no murmur. Peripheral pulses 2+ Abdomen: soft, nondistended, no organomegaly Skin: warm and dry. Lumbar midline with gauze, scant serous drainage - Labs CBC & Chem 7: 02/26/20 06:46 02/26/20 06:46 Labs: Microbiology - Last 24 Hours (Table) 02/25/20 15:20 Gram Stain - Final Back Wound Culture - Final 02/25/20 15:20 Gram Stain - Final Back Wound Culture - Final 02/25/20 15:20 Gram Stain - Final Back Wound Culture - Final Assessment and Plan (1) Fibromyalgia Current Visit: Yes Status: Acute Code(s): M79.7 - FIBROMYALGIA SNOMED Code(s): 536110792 (2) Soft tissue infection of lumbar spine Current Visit: Yes Status: Acute Code(s): M79.89 - OTHER SPECIFIED SOFT TISSUE DISORDERS; B99.9 - UNSPECIFIED INFECTIOUS DISEASE SNOMED Code(s): 605985063 (3) Chronic low back pain Current Visit: No Status: Acute Code(s): M54.5 - LOW BACK PAIN; G89.29 - OTHER CHRONIC PAIN SNOMED Code(s): 143508914 (4) History of blood disorder Current Visit: No Status: Acute Code(s): Z86.2 - PRSNL HISTORY OF DIS OF THE BLD/BLD-FORM ORG/IMMUN MECHNSM SNOMED Code(s): 305881703 (5) Hyperlipidemia Current Visit: No Status: Acute Code(s): E78.5 - HYPERLIPIDEMIA, UNSPECIFIED SNOMED Code(s): 26961666 (6) Lumbar degenerative disc disease Current Visit: No Status: Acute Code(s): M51.36 - OTHER INTERVERTEBRAL DISC DEGENERATION, LUMBAR REGION SNOMED Code(s): 72657958 (7) Lumbar facet arthropathy Current Visit: No Status: Acute Code(s): M47.816 - SPONDYLOSIS W/O MYELOPATHY OR RADICULOPATHY, LUMBAR REGION SNOMED Code(s): 136901903 (8) Lumbosacral pain Current Visit: No Status: Acute Code(s): M54.5 - LOW BACK PAIN SNOMED Code(s): 513684785 (9) UTI (urinary tract infection) Current Visit: No Status: Acute Code(s): N39.0 - URINARY TRACT INFECTION, SITE NOT SPECIFIED SNOMED Code(s): 82606765 (10) Upper extremity weakness Current Visit: No Status: Acute Code(s): R29.898 - OTH SYMPTOMS AND SIGNS INVOLVING THE MUSCULOSKELETAL SYSTEM SNOMED Code(s): 714694893 Plan: 1. Lumbar spine seroma with persistent drainage. Operative management per Surgery Pain control. Continue with broad spectrum antibiotics and follow cultures 2. Multiple sclerosis. Continue adderall, ropinorole 3. Fibromyalgia. Continue home cymbalta, robaxin 4. Hypothyroid 5. Hx DVT. Continue eliquis
[2020-02-28] MEDS: HYDROmorphone 1 MG/ML 1 ML SYRINGE IVP PRN ×3 (01:37→18:00)
[2020-02-28] MEDS: oxyCODONE-APAP 10-325MG 1 EACH TAB PO PRN ×3 (02:30→16:39)
[2020-02-28] MEDS: NICOTINE 14MG/24HR PATCH TRANSDERM SCH (05:49)
[2020-02-28] MEDS: LEVOTHYROXINE 125 MCG TAB PO SCH (05:49)
[2020-02-28] MEDS: SENNOSIDES-DOCUSATE SODIUM 1 EACH TAB PO SCH (07:35)
[2020-02-28] MEDS: LORATADINE 10 MG TAB PO SCH (07:36)
[2020-02-28] MEDS: METHOCARBAMOL 750 MG TAB PO SCH ×3 (07:36→21:28)
[2020-02-28] MEDS: GABAPENTIN 400 MG CAP PO SCH ×3 (07:36→21:26)
[2020-02-28] MEDS: HYDROCORTISONE 10 MG TAB PO SCH ×2 (07:36→21:27)
[2020-02-28] MEDS: diphenhydrAMINE 50 MG CAP PO SCH ×2 (07:36→22:02)
[2020-02-28] MEDS: MORPHINE SULFATE ER 60 MG TABLET PO SCH ×2 (07:36→21:27)
[2020-02-28] MEDS: PANTOPRAZOLE 40 MG TABLET PO SCH (07:36)
[2020-02-28] MEDS: APIXABAN 5 MG TAB PO SCH ×2 (07:36→21:27)
[2020-02-28] MEDS: CEFEPIME 2 GM in SODIUM CHLORIDE 0.9% 100 ML IVPB SCH ×2 (07:36→21:28)
[2020-02-28] MEDS: POTASSIUM CHLORIDE ER 20 MEQ TAB.ER PO SCH ×2 (07:37→21:27)
[2020-02-28 08:13] LABS: Anisocytosis Slight; Basophils # (A) 0.1 k/uL (0-0.2); Basophils % (A) 1 %; Eosinophils # (A) 0.4 k/uL (0-0.7); Eosinophils % (A) 4 %; HCT 38.4 % (34.0-46.0); HGB 11.8 gm/dL (11.4-16.0); Hypochromasia Marked; Lymphocytes # (A) 2.4 k/uL (1.0-4.8); Lymphocytes % (A) 21 %; MCH 25.4 pg (25.0-35.0); MCHC 30.7 g/dL (31.0-37.0); MCV 82.9 fL (80.0-100.0); Mean Platelet Volume 7.6; Monocytes # (A) 0.5 k/uL (0-1.0); Monocytes % (A) 5 %; Neutrophils # (A) 7.8 k/uL (1.3-7.7); Neutrophils % (A) 69 %; Platelet Count 259 k/uL (150-450); RBC 4.63 m/uL (3.80-5.40); RDW 16.5 % (11.5-15.5); WBC 11.3 k/uL (3.8-10.6)
[2020-02-28 08:25] LABS: African American GFR (CKD) >90 (>60 ml/min/1.73 sqM); Anion Gap 6 mmol/L; Blood Urea Nitrogen 10 mg/dL (7-17); C Reactive Protein 46.1 mg/L (<10.0); Calcium 9.4 mg/dL (8.4-10.2); Carbon Dioxide 31 mmol/L (22-30); Chloride 101 mmol/L (98-107); Glucose 88 mg/dL (74-99); Non-African American GFR(CKD) >90 (>60 ml/min/1.73 sqM); Potassium 4.7 mmol/L (3.5-5.1); Sodium 138 mmol/L (137-145)
--- NOTE | 2020-02-28 10:02 | P.PN ---
Progress Note - Text Progress Note Date: 02/28/20 Postoperative day #3 Patient is seen and examined today at bedside. The patient feels that her pain is improving and her lower back but she still has significant drainage from the area. Her cultures have not shown any growth. She still receiving antibiotics per her PICC line as per infectious disease. Pain is being controlled with medication. Physical Exam Afebrile with stable vital signs Abdomen is soft nontender. Chest has good excursion deep and space expiration incision site is still with significant serous yellow drainage. There is no erythema. There is no active drainage from site. No erythema there is no purulence. Extremities have not had neurologic change from prior to surgery. Calves and thighs were soft nontender without evidence of DVT. Assessment/Plan Postoperative day #3 status post irrigation and excisional debridement of lumbar spine wound Persistent drainage lumbar spine wound Lumbar spine wound infection with persistent drainage History of severe spinal stenosis with lower extremity radiculopathy and weakness Status post laminectomy decompression L4 5 Status post irrigation and excisional debridement 2 Patient is progressing very slowly as expected from the surgery. She still has significant drainage from the area. I removed the rest of the packing today and I will evaluate it. Tomorrow and possibly do repeat packing with iodoform gauze which I'll order for bedside. I would like to have wound care set up for possible repeat packing when she is discharged from the hospital. Her cultures have come back with no growth and she will continue her antibiotic regimen as per infectious disease. She still needs regular wound care and we have tried to do wound care on her own but we have not been successful and so we'll make sure that we have some established for home wound care before she is able to be discharged. We will continue to increase the patient's mobilization with therapy. We will continue pain control with oral or IV medications. We'll continue to follow patient closely.
[2020-02-28] MEDS: SODIUM CHLORIDE 0.9% 1,000 ML IV SCH (11:20)
[2020-02-28 12:14] LABS: Erythrocyte Sedimentation Rate 32 mm/hr (0-20)
[2020-02-28] MEDS: MORPHINE SULFATE ER 30 MG TABLET PO SCH (12:46)
[2020-02-28] MEDS: KETOROLAC 30 MG/ML 1 ML VIAL IVP PRN (18:00)
--- NOTE | 2020-02-28 20:36 | PN ---
PROGRESS NOTE DATE OF SERVICE: 02/28/2020 I am covering for Dr. Palomino. This 50-year-old was admitted with fibromyalgia, also had significant infection in the wound in the lumbar spine area. The previous culture grew possibly Enterobacter. The patient is being closely monitored at this time. The most recent cultures are negative and the patient is on Zosyn at this time. PAST MEDICAL HISTORY: Reviewed. REVIEW OF SYSTEMS: CARDIOVASCULAR: No angina. RESPIRATORY: No cough. GI: As mentioned earlier. MUSCULOSKELETAL: As mentioned earlier. CURRENT MEDICATIONS: 1. Ventolin. 2. Eliquis 5 mg p.o. b.i.d. 3. Cepacol. 4. Cefepime 2 g IV b.i.d. 5. Benadryl. 6. Cymbalta. 7. Vitamin B12. 8. Lasix. 9. Neurontin. 10.Cortef. 11.Dilaudid. 12.Lactated Ringer's. 13.Claritin. 14.Ativan. 15.Milk of Magnesia. 16.Magnesium oxide. 17.Antivert. 18.Melatonin. 19.Zaroxolyn. 20.Singulair. 21.MS Contin. 22.Habitrol 14. 23.Zofran. 24.Percocet. 25.Protonix. 26.K-Dur. 28.Imitrex. 29.Zanaflex 4 mg. PHYSICAL EXAMINATION: Pulse is 89, blood pressure 130/85, respiration 18, temperature 98.1, pulse ox 92% on room air. HEENT: Conjunctivae normal. NECK: No jugular venous distention. CARDIOVASCULAR: S1, S2, muffled. RESPIRATORY: Diminished breath sounds at the bases. A few scattered rhonchi and crackles. ABDOMEN: Soft, nontender. LEGS: No edema, no swelling. LAB STUDIES: WBC 11.3, sodium 138, potassium 4.7, ( ) 46.1. ASSESSMENT: 1. Lumbar spinal wound with previous culture positive for Enterobacter. 2. Chronic back pain. 3. Hyponatremia. 4. Increased WBC, improving. 5. History of asthma. 6. History of chronic obstructive pulmonary disease. 7. History of congestive heart failure .. 8. Deep venous thrombosis. 9. History of fibromyalgia. 10.Hyperlipidemia. 11.History of memory impairment. 12.History of degenerative joint disease. 13.History of sleep apnea. 14.History of factor V Leiden deficiency. 15.History of back surgery. 16.Cholecystectomy. 17.History of anxiety and depression. 18.Gait dysfunction. RECOMMENDATIONS AND DISCUSSION: In this 50-year-old woman who presented with multiple medical problems, will monitor the patient closely. Continue the current medications as mentioned. The patient is already on apixaban. PT/OT evaluation. I would recommend pain management. Closely monitor. Patient is on a regular diet at this time. We will stop the IV and continue to monitor. Closely follow with Infectious Disease. Further recommendations to follow. MMODL / IJN: [id number] / [email or web address]
--- NOTE | 2020-02-28 20:36 | PN ---
PROGRESS NOTE DATE OF SERVICE: 02/28/2020 REASON FOR FOLLOW UP: Lumbar spine infection. INTERVAL HISTORY: Patient is currently afebrile. The patient is breathing comfortably. Denies having any chest pain or any cough. Overall pain and discomfort in the lumbar area has decreased and there is less drainage. No abdominal pain, no diarrhea. PHYSICAL EXAMINATION: Blood pressure 136/85, pulse of 89, temperature 98.1. She is 92% on room air. General description is a middle-aged female up in the chair in no distress. Respiratory system: Unlabored breathing, clear to auscultation anteriorly. Heart S1, S2. Regular rate and rhythm. Abdomen soft, no tenderness. LABS: White count is down to 11.1. DIAGNOSTIC IMPRESSION AND PLAN: Patient with a lumbar spine infection in this patient with previous culture positive for Enterobacter. Cultures from this admission are still so far negative. Keep the patient on cefepime 2 grams q.12 ( ) clinical response and continue supportive care. MMODL / IJN: [id number] /
[2020-02-28] MEDS: MONTELUKAST 10 MG TAB PO SCH (21:26)
[2020-02-28] MEDS: MELATONIN 5 MG TABLET PO SCH (21:26)
[2020-02-28] MEDS: MAGNESIUM OXIDE 400 MG TAB PO SCH (21:27)
[2020-02-28] MEDS: DULoxetine HCL 30 MG CAPSULE.DR PO SCH (21:28)
[2020-02-28] MEDS: LORazepam 1 MG TAB PO PRN (21:32)
[2020-02-28] MEDS: tiZANidine 4 MG TAB PO PRN (22:02)
[2020-02-28] MEDS: LACTATED RINGERS 1,000 ML IV SCH (23:25)
[2020-02-29] MEDS: oxyCODONE-APAP 10-325MG 1 EACH TAB PO PRN ×4 (00:25→22:22)
[2020-02-29] MEDS: HYDROmorphone 1 MG/ML 1 ML SYRINGE IVP PRN ×3 (02:31→16:30)
[2020-02-29] MEDS: LEVOTHYROXINE 125 MCG TAB PO SCH (05:46)
[2020-02-29] MEDS: METHOCARBAMOL 750 MG TAB PO SCH ×3 (07:09→22:20)
[2020-02-29] MEDS: GABAPENTIN 400 MG CAP PO SCH ×3 (07:09→21:11)
[2020-02-29] MEDS: POTASSIUM CHLORIDE ER 20 MEQ TAB.ER PO SCH ×2 (07:09→21:12)
[2020-02-29] MEDS: PANTOPRAZOLE 40 MG TABLET PO SCH (07:09)
[2020-02-29] MEDS: SENNOSIDES-DOCUSATE SODIUM 1 EACH TAB PO SCH (07:09)
[2020-02-29] MEDS: NICOTINE 14MG/24HR PATCH TRANSDERM SCH (07:09)
[2020-02-29] MEDS: MORPHINE SULFATE ER 60 MG TABLET PO SCH ×2 (07:09→21:11)
[2020-02-29] MEDS: APIXABAN 5 MG TAB PO SCH ×2 (07:10→21:12)
[2020-02-29] MEDS: LORATADINE 10 MG TAB PO SCH (07:10)
[2020-02-29] MEDS: CEFEPIME 2 GM in SODIUM CHLORIDE 0.9% 100 ML IVPB SCH ×2 (07:10→21:12)
[2020-02-29] MEDS: HYDROCORTISONE 10 MG TAB PO SCH ×2 (07:10→21:13)
[2020-02-29] MEDS: diphenhydrAMINE 50 MG CAP PO SCH ×2 (07:10→21:12)
--- NOTE | 2020-02-29 12:06 | P.PN ---
Progress Note - Text Progress Note Date: 02/29/20 Postoperative day #4 Patient is seen and examined today at bedside. The patient feels that her back is doing well she feels that she has some itching around the site. She is not nauseous she has not been having any fevers. Her legs up and doing well. Physical Exam Afebrile with stable vital signs Abdomen is soft nontender. Chest has good excursion deep and space expiration The incision site No erythema there is no purulence. Still has significant serous drainage at the area there is no redness there is no purulence. I removed the dressing and did some gentle repacking with iodoform gauze at bedside. I was able place proximally 2 inches of gauze at the superior aspect of the incision and the inferior aspect of the incision. The patient tolerated this well. I think that this should be changed each day. Extremities have not had neurologic change from prior to surgery. Calves and thighs were soft nontender without evidence of DVT. Assessment/Plan Postoperative day #4 status post repeat irrigation and debridement with excisional debridement of her lumbar spine wound infection with history of laminectomy decompression for her severe spinal stenosis lower extremity weakness Patient is progressing slowly as expected from the surgery. I think the patient needs daily wound care with repacking of the iodoform gauze at the incision site. There are 2 areas of the incision one at the superior aspect and one at the inferior aspect of the incision be removed and then repacked on a daily basis to allow secondary healing to occur appropriately. I think that dry dressing to be placed over the top to account for the drainage which is still present We will continue to increase the patient's mobilization with therapy. We will continue pain control with oral or IV medications. We'll continue to follow patient closely.
[2020-02-29] MEDS: MORPHINE SULFATE ER 30 MG TABLET PO SCH (12:18)
[2020-02-29] MEDS: KETOROLAC 30 MG/ML 1 ML VIAL IVP PRN ×2 (14:00→21:16)
[2020-02-29] MEDS: MELATONIN 5 MG TABLET PO SCH (21:11)
[2020-02-29] MEDS: DULoxetine HCL 30 MG CAPSULE.DR PO SCH (21:12)
[2020-02-29] MEDS: MAGNESIUM OXIDE 400 MG TAB PO SCH (21:12)
[2020-02-29] MEDS: MONTELUKAST 10 MG TAB PO SCH (21:12)
[2020-02-29] MEDS: LACTATED RINGERS 1,000 ML IV SCH (22:41)
--- NOTE | 2020-03-01 00:15 | PN ---
PROGRESS NOTE DATE OF SERVICE: 02/29/2020 I am covering for Dr. Palomino. This 50-year-old woman who was admitted with infected wound to the lumbar spine is being closely monitored. Patient on antibiotics. Cultures are negative so far. No chest pain. No palpitations. No fever. PHYSICAL EXAMINATION: On exam, alert and oriented x3. Pulse 78, blood pressure 123/84, respiration 19, temperature 98.7, pulse ox 97% on room air. HEENT: Conjunctivae normal. NECK: No jugular venous distention. CARDIOVASCULAR: S1, S2 muffled. RESPIRATORY: Breath sounds diminished at the bases. No rhonchi, no crackles. ABDOMEN: Soft, nontender. LEGS: No edema, no swelling. NERVOUS SYSTEM: No focal deficits. LABS: WBC 11.3, sodium 138. CRP is 46.1. ASSESSMENT: 1. Lumbar spine wound with previous culture positive for Enterobacter. 2. Chronic back pain. 3. Hyponatremia. 4. Increased WBC, improving. 5. History of asthma. 6. History of chronic obstructive pulmonary disease. 7. History of congestive heart failure. 8. Deep venous thrombosis history. 9. History of fibromyalgia. 10.Hyperlipidemia. 11.History of memory impairment. 12.History of degenerative joint disease. 13.History of sleep apnea. 14.History of factor V Leiden deficiency. 15.History of back surgery. 16.History of cholecystectomy. 17.History of anxiety and depression. 18.Gait dysfunction. RECOMMENDATIONS AND DISCUSSION: Recommend to continue current medication and continue with symptomatic treatment. Continue with antibiotics. Closely follow with Infectious Disease. Dr. Palomino will follow tomorrow. The rest of the recommendations per Orthopedic Surgery. Further recommendations to follow. MMODL / IJN: [id number] /
[2020-03-01] MEDS: LEVOTHYROXINE 125 MCG TAB PO SCH (05:36)
[2020-03-01] MEDS: oxyCODONE-APAP 10-325MG 1 EACH TAB PO PRN ×2 (05:37→14:09)
--- NOTE | 2020-03-01 06:58 | PN ---
PROGRESS NOTE DATE OF SERVICE: 02/29/2020 REASON FOR FOLLOWUP: Lumbar spine surgical site infection. INTERVAL HISTORY: Patient is currently afebrile. The patient is breathing comfortably. The patient's overall pain and discomfort from the lumbar spine has been improved and drainage has decreased. No chest pain, shortness of breath or cough. No abdominal pain or diarrhea. PHYSICAL EXAMINATION: Blood pressure 120/77 with a pulse of 73, temperature 98.8. She is 96% on room air. General description is a middle-aged female lying in bed in no distress. Respiratory system: Unlabored breathing clear to auscultation anteriorly. Heart S1, S2. Regular rate and rhythm. ABDOMEN: Soft, no tenderness. LABS: No new labs have been obtained today. The cultures from the lumbar spine area has been negative. DIAGNOSTIC IMPRESSION AND PLAN: Patient with lumbar infection in this patient with recent laminectomy and decompression, status post removal of hardware on her last admission, status post 3 debridement. Those cultures remain negative. Previous culture positive for Enterobacter. Will give the patient cefepime 2 grams IV every 12 for 4 weeks and close outpatient followup. MMODL / IJN: [id number] /
[2020-03-01 07:08] VITALS: BP 108/60; PULSE 80; RESP 18; TEMP 98.8
[2020-03-01] MEDS: METHOCARBAMOL 750 MG TAB PO SCH (09:09)
[2020-03-01] MEDS: MORPHINE SULFATE ER 60 MG TABLET PO SCH (09:10)
[2020-03-01] MEDS: GABAPENTIN 400 MG CAP PO SCH (09:10)
[2020-03-01] MEDS: diphenhydrAMINE 50 MG CAP PO SCH (09:10)
[2020-03-01] MEDS: PANTOPRAZOLE 40 MG TABLET PO SCH (09:10)
[2020-03-01] MEDS: APIXABAN 5 MG TAB PO SCH (09:11)
[2020-03-01] MEDS: HYDROCORTISONE 10 MG TAB PO SCH (09:12)
[2020-03-01] MEDS: SENNOSIDES-DOCUSATE SODIUM 1 EACH TAB PO SCH (09:12)
[2020-03-01] MEDS: NICOTINE 14MG/24HR PATCH TRANSDERM SCH (09:12)
[2020-03-01] MEDS: LORATADINE 10 MG TAB PO SCH (09:12)
[2020-03-01] MEDS: POTASSIUM CHLORIDE ER 20 MEQ TAB.ER PO SCH (09:12)
[2020-03-01] MEDS: CEFEPIME 2 GM in SODIUM CHLORIDE 0.9% 100 ML IVPB SCH (09:12)
--- NOTE | 2020-03-01 11:09 | P.CONS ---
History of Present Illness - Reason for Consult Consult date: 03/01/20 wound care - History of Present Illness This is a 50-year-old patient being seen on 4 S. for nonhealing ulceration to surgical site post laminectomy decompression. Patient underwent a laminectomy decompression approximate 6 weeks ago. The incision became infected and had a lumbar spine irrigation and excisional debridement approximate 3 weeks ago. Patient has returned with subsequent more drainage and open ulceration and underwent a repeat lumbar irrigation and excisional debridement. Patient has had 2 superficial cultures and one deep culture was sent to microbiology which showed rare polymorphonuclear leukocytes. Iodoform packing gauze dressing was placed within the opened areas post procedure. Review of Systems Review Of Systems: Constitutional: No fever, no chills, no night sweats. No weight change. No weakness, fatigue or lethargy. No daytime sleepiness. Integumentary:reports wounds, no lesions. No rash or pruritus. No unusual bruising. No change in hair or nails. Past Medical History Past Medical History: Asthma, Blood Disorder, Heart Failure, COPD, Deep Vein Thrombosis (DVT), Eye Disorder, Fibromyalgia, Hearing Disorder / Deafness, Hyperlipidemia, Memory Impairment, Musculoskeletal Disorder, Neurologic Disorder, Osteoarthritis (OA), Pneumonia, Skin Disorder, Sleep Apnea/CPAP/BIPAP, Syncope, Thyroid Disorder Additional Past Medical History / Comment(s): Multiple sclerosis, bronchitis, factor 5 leiden, RUBI-does not wear device, DVT L leg 2014, hiatal hernia, hoarseness/leucoplasia, adrenal insufficiency/chronic steroid use, migraines, DJD, chronic back pain, bursitis, optic neuritis bilaterally, glaucoma , tinnitis, UTI, rosacia, sinus problems, insomnia, hypersomnia. carpal tunel, vertigo., states infection at back surgery site- with visiting nurse and is receiving IV antibiotic through PICC line . History of Any Multi-Drug Resistant Organisms: None Reported Year Discovered:: 2013 MDRO Source:: stomach Past Surgical History: Back Surgery, Bladder Surgery, Section, Cholecystectomy, Tubal Ligation Additional Past Surgical History / Comment(s): 09-24-18 bladder stimulator, 02/05/19 microlarygoscopy/bx, vocal cord polypectomies, cervical bx, bladder suspension, EGD with bx, colonoscopy,. Laminectomy with decompression (), Drainage of seroma back (02/02/20).,. PICC line . Past Anesthesia/Blood Transfusion Reactions: Motion Sickness Additional Past Anesthesia/Blood Transfusion Reaction / Comm: occasional bad headaches. Past Psychological History: ADD/ADHD, Anxiety, Depression Additional Psychological History / Comment(s): . Smoking Status: Current every day smoker Past Alcohol Use History: None Reported Additional Past Alcohol Use History / Comment(s): 1 ppd smoker since 1981---has cut back and is attempting to use nicotine patch Past Drug Use History: None Reported Additional Drug Use History / Comment(s): occ marijuana use- - Past Family History Brother(s) Family Medical History: Deep Vein Thrombosis (DVT) Father Family Medical History: Deep Vein Thrombosis (DVT) Additional Family Medical History / Comment(s): Patient states that her father has no cardiac history but his father had previous ME's. Mother Family Medical History: Cancer, Deep Vein Thrombosis (DVT), Pulmonary Embolus Additional Family Medical History / Comment(s): Cervical cancer. Medications and Allergies Home Medications Medication Instructions Recorded Confirmed Type Gabapentin 800 mg PO TID 08/13/16 02/24/20 History LORazepam [Ativan] 1 mg PO TID PRN 05/21/17 02/24/20 History Meloxicam [Mobic] 15 mg PO HS 05/21/17 02/24/20 History tiZANidine [Zanaflex] 4 mg PO TID PRN 05/21/17 02/24/20 History Zonisamide [Zonegran] 200 mg PO HS PRN 10/15/17 02/24/20 History Methocarbamol [Robaxin] 750 mg PO TID 09/12/18 02/24/20 History Potassium Chloride [Klor-Con 20] 20 meq PO BID 09/30/18 02/24/20 History DULoxetine HCL [Cymbalta] 30 mg PO HS 11/13/18 02/24/20 History Dextroamphetamine/Amphetamine 30 mg PO BID 11/13/18 02/24/20 History [Adderall] DULoxetine HCL [Cymbalta] 60 mg PO HS 04/01/19 02/24/20 History Hydrocortisone [Cortef] 10 mg PO BID 04/01/19 02/24/20 History Morphine Sulfate ER [Ms Contin] 60 mg PO BID 04/01/19 02/24/20 History Albuterol Nebulized [Ventolin 2.5 mg INHALATION RT-QID PRN 12/03/19 02/24/20 History Nebulized] Levothyroxine Sodium 125 mcg PO DAILY 12/03/19 02/24/20 History Magnesium Oxide 400 mg PO HS 12/03/19 02/24/20 History Meclizine HCl 12.5 mg PO BID PRN 12/03/19 02/24/20 History Omeprazole 40 mg PO DAILY 12/03/19 02/24/20 History Ondansetron HCl [Zofran] 4 mg PO Q8H PRN 12/03/19 02/24/20 History Rizatriptan Benzoate [Maxalt] 10 mg PO DAILY PRN 12/03/19 02/24/20 History traZODone HCL 100 mg PO HS PRN 12/03/19 02/24/20 History Nicotine 21Mg/24Hr Patch [Habitrol] 1 patch TRANSDERM DAILY #30 patch 12/08/19 02/24/20 Rx Albuterol Inhaler [Ventolin Hfa 2 puff INHALATION RT-QID PRN 12/17/19 02/24/20 History Inhaler] Apixaban [Eliquis] 5 mg PO BID 12/17/19 02/24/20 History Furosemide [Lasix] 20 mg PO BID PRN 12/17/19 02/24/20 History rOPINIRole HCL [Requip] 0.5 mg PO BID 12/17/19 02/24/20 History Montelukast [Singulair] 10 mg PO HS 02/02/20 02/24/20 History Cefepime HCl [Maxipime] 2 gm IV Q12H #80 vial 02/06/20 02/24/20 Rx oxyCODONE HCL/ACETAMINOPHEN 1 tab PO Q6HR PRN 7 Days #28 tab 02/07/20 02/24/20 Rx [Percocet 10-325 mg] Ergocalciferol [Vitamin D2] 50,000 unit PO Q7D 02/24/20 02/24/20 History Loratadine 10 mg PO DAILY 02/24/20 02/24/20 History Melatonin 5 mg PO DAILY 02/24/20 02/24/20 History diphenhydrAMINE [Benadryl] 50 mg PO BID 02/24/20 02/24/20 History Allergies Allergy/AdvReac Type Severity Reaction Status Date / Time doxycycline Allergy Rash/Hives Verified 02/24/20 13:14 glatiramer (copolymer 1) Allergy Rapid Verified 02/24/20 13:14 [From Copaxone] Heart Rate,hives, skin flushing sulfamethoxazole Allergy blisters Verified 02/24/20 13:14 [From Bactrim] in mouth trimethoprim [From Bactrim] Allergy blisters Verified 02/24/20 13:14 in mouth steroids AdvReac genital Uncoded 02/24/20 13:14 burning & rashes but still takes steroids. Physical Exam Vitals: Vital Signs Temp Pulse Resp BP BP Pulse Ox 03/01/20 07:00 98.8 F 80 18 108/60 93 L 03/01/20 00:31 98.5 F 79 14 132/83 95 02/29/20 19:20 98.8 F 78 16 120/77 96 02/29/20 15:00 98.7 F 78 19 123/84 97 Intake and Output 02/29/20 03/01/20 03/01/20 22:59 06:59 14:59 Other: Voiding Method Toilet # Voids 1 2 Physical exam: General Appearance: Alert, cooperative, no distress, appears stated age. Skin: Surgical wound dehiscence, with fat layer exposure, I did perform in place. Serosanguineous drainage noted. Ulcerations to the superior and distal portion of the incision. Stefania in place those areas of incision are well approximated. With no drainage. all other Skin color, texture, tugor normal, no rashes or lesions. Neurologic: Alert oriented x3 Results CBC & Chem 7: 02/28/20 07:31 02/28/20 07:31 Labs: Microbiology - Last 24 Hours (Table) 02/25/20 15:20 Anaerobic Culture - Final Back 02/25/20 15:20 Anaerobic Culture - Final Back 02/25/20 15:20 Anaerobic Culture - Final Back Assessment and Plan (1) Surgical wound dehiscence Current Visit: Yes Status: Acute Code(s): T81.31XA - DISRUPTION OF EXTERNAL OPERATION (SURGICAL) WOUND, NEC, INIT SNOMED Code(s): 65257145 (2) Nonhealing skin ulcer with fat layer exposed Current Visit: Yes Status: Acute Code(s): L98.492 - NON-PRS CHRONIC ULCER OF SKIN OF SITES W FAT LAYER EXPOSED SNOMED Code(s): 65724299 (3) Osteomyelitis of lumbar spine Current Visit: Yes Status: Acute Code(s): M46.26 - OSTEOMYELITIS OF VERTEBRA, LUMBAR REGION SNOMED Code(s): 563930152 Plan: Apply absorptive silver to the site. Once idoform is removed it may apply absorptive silver directly to the wound. Apply with the absorptive silver dry. Apply a BD and tape to secure. Patient would benefit from outpatient wound care. Continue the dressing with home care. Patient may be a candidate for hyperbaric oxygen therapy. Thank you kindly for the consultation any questions please contact the wound care center DNP note has been reviewed and discussed with Dr. Charles and the impression and plan of care has been directed as dictated.
[2020-03-01] MEDS: MORPHINE SULFATE ER 30 MG TABLET PO SCH (12:36)
--- NOTE | 2020-03-01 12:46 | P.DS ---
Providers Date of admission: 02/27/20 10:24 Expected date of discharge: 03/01/20 Attending physician: Ulysses Olivera Consults: 02/25/20 15:29 Consult Physician Routine Consulting Provider: Devante Reich Consult Reason/Comments: Lumbar spine wound infection management Do you want consulting provider notified?: Yes 02/25/20 15:36 Consult Physician Routine Consulting Provider: Jannette Palomino Consult Reason/Comments: Medical management Do you want consulting provider notified?: Yes Primary care physician: Richy Palomino MD - Discharge Diagnosis(es) (1) Lumbar surgical wound fluid collection Current Visit: Yes Status: Acute (2) S/P debridement Current Visit: Yes Status: Acute (3) Wound drainage Current Visit: Yes Status: Acute (4) Hx of decompressive lumbar laminectomy Current Visit: Yes Status: Acute (5) Obesity (BMI 30-39.9) Current Visit: Yes Status: Acute (6) Soft tissue infection of lumbar spine Current Visit: Yes Status: Acute (7) COPD (chronic obstructive pulmonary disease) Current Visit: No Status: Acute Hospital Course: This is a pleasant 50-year-old female who presented with infected deep wound of the lumbar spine with history of severe lumbar spinal canal stenosis and lower extremity weakness who is status post laminectomy decompression performed approximately 6 weeks ago and also status post lumbar spine irrigation and excisional debridement approximate 3 weeks ago who failed outpatient conservative therapy. She was admitted for repeat irrigation and excisional debridement of lumbar spine wound with placement of iodoform packing gauze for persistent infected deep lumbar spine wound. The patient tolerated the procedure well and did well postoperatively. She has been improving postoperatively. She is not currently experiencing any lower extremity weakness bilaterally. She is able to ambulate to the restroom. She states she is eating and voiding without difficulty. Her pain has been adequately controlled. She continues with daily dressing changes at the surgical site and daily iodoform gauze changes. She has been seen by wound care. We will plan for wound care to be set up in the outpatient setting and wound care may manage her care and dressing changes . We would recommend with daily removal and repacking of iodoform gauze to allow for secondary healing to occur appropriately. We'll plan for this to continue until at least the patient's first scheduled follow-up appointment. We'll plan have patient follow-up in outpatient setting is coming 03/05/2020. Patient continues to be seen and examined by Dr. Reich in infectious disease. She has been following with Dr. Reich in the outpatient setting as well. He is currently recommending to continue with cefepime 2 g every 12 hours. We discussed patient will continue with antibiotic regimen in the outpatient setting as prescribed by infectious disease. Patient does so she is ready for discharge home today. Condition on day of discharge stable. Patient will be discharged home. Patient currently denies any nausea, vomiting, fever, or chills. Patient is eating and voiding freely without difficulty. Patient may shower with dressing intact over her wound site. We discussed she should avoid standing water. Patient should refrain from driving until at least after their first follow-up appointment in the office. Patient should avoid excessive bending, lifting, and twisting; no lifting greater than 10 pounds. We discussed were not planning to prescribe any narcotic pain medication the time of discharge. Patient is under a narcotic contract. She may continue with Percocet 10 mg/325 mg as prescribed as needed for control of her symptoms. Physical Exam on day of discharge: Patient is awake, alert, and oriented 3 Vital signs stable Good chest excursion with deep inspiration and expiration No signs or symptoms of DVT; no calf pain She is able to lift legs off the bed independently without difficulty bilaterally Extensor hallucis longus, plantarflexion, and dorsiflexion positive sustained bilateral lower extremities Lewis remain intact over the wound site of the lumbar spine No evidence of redness or purulent discharge at the wound site Evidence of some drainage from the wound site Iodoform gauze remains intact at the superior aspect and inferior aspect of the wound Iodoform gauze is removed and replaced with new iodoform gauze during physical examination Approximately 2-3 inches of iodoform gauze placed at the superior wound site and approximately [address] of the inferior wound site Patient tolerated removal of iodoform gauze and placement of new iodoform gauze without difficulty Procedures: Repeat irrigation and excisional debridement of lumbar spine wound with placement of iodoform packing gauze for persistent infected deep lumbar spine wound Patient Condition at Discharge: Stable Plan - Discharge Summary Discharge Rx Participant: No New Discharge Prescriptions: No Action Gabapentin 800 mg PO TID Meloxicam [Mobic] 15 mg PO HS tiZANidine [Zanaflex] 4 mg PO TID PRN PRN Reason: Spasms LORazepam [Ativan] 1 mg PO TID PRN PRN Reason: Anxiety Zonisamide [Zonegran] 200 mg PO HS PRN PRN Reason: Migraine Headache Methocarbamol [Robaxin] 750 mg PO TID Potassium Chloride [Klor-Con 20] 20 meq PO BID Dextroamphetamine/Amphetamine [Adderall] 30 mg PO BID DULoxetine HCL [Cymbalta] 30 mg PO HS DULoxetine HCL [Cymbalta] 60 mg PO HS Hydrocortisone [Cortef] 10 mg PO BID Morphine Sulfate ER [Ms Contin] 60 mg PO BID Omeprazole 40 mg PO DAILY Levothyroxine Sodium 125 mcg PO DAILY Albuterol Nebulized [Ventolin Nebulized] 2.5 mg INHALATION RT-QID PRN PRN Reason: Shortness Of Breath Meclizine HCl 12.5 mg PO BID PRN PRN Reason: Vertigo Ondansetron HCl [Zofran] 4 mg PO Q8H PRN PRN Reason: nausea/vomiting traZODone HCL 100 mg PO HS PRN PRN Reason: Insomnia Magnesium Oxide 400 mg PO HS Rizatriptan Benzoate [Maxalt] 10 mg PO DAILY PRN PRN Reason: Migraine Headache Nicotine 21Mg/24Hr Patch [Habitrol] 1 patch TRANSDERM DAILY #30 patch Furosemide [Lasix] 20 mg PO BID PRN PRN Reason: Edema Apixaban [Eliquis] 5 mg PO BID rOPINIRole HCL [Requip] 0.5 mg PO BID Albuterol Inhaler [Ventolin Hfa Inhaler] 2 puff INHALATION RT-QID PRN PRN Reason: Shortness Of Breath Montelukast [Singulair] 10 mg PO HS Cefepime HCl [Maxipime] 2 gm IV Q12H #80 vial oxyCODONE HCL/ACETAMINOPHEN [Percocet 10-325 mg] 1 tab PO Q6HR PRN 7 Days #28 tab PRN Reason: Pain diphenhydrAMINE [Benadryl] 50 mg PO BID Ergocalciferol [Vitamin D2] 50,000 unit PO Q7D Loratadine 10 mg PO DAILY Melatonin 5 mg PO DAILY Discharge Medication List Gabapentin 800 mg PO TID 08/13/16 [History] LORazepam [Ativan] 1 mg PO TID PRN 05/21/17 [History] Meloxicam [Mobic] 15 mg PO HS 05/21/17 [History] tiZANidine [Zanaflex] 4 mg PO TID PRN 05/21/17 [History] Zonisamide [Zonegran] 200 mg PO HS PRN 10/15/17 [History] Methocarbamol [Robaxin] 750 mg PO TID 09/12/18 [History] Potassium Chloride [Klor-Con 20] 20 meq PO BID 09/30/18 [History] DULoxetine HCL [Cymbalta] 30 mg PO HS 11/13/18 [History] Dextroamphetamine/Amphetamine [Adderall] 30 mg PO BID 11/13/18 [History] DULoxetine HCL [Cymbalta] 60 mg PO HS 04/01/19 [History] Hydrocortisone [Cortef] 10 mg PO BID 04/01/19 [History] Morphine Sulfate ER [Ms Contin] 60 mg PO BID 04/01/19 [History] Albuterol Nebulized [Ventolin Nebulized] 2.5 mg INHALATION RT-QID PRN 12/03/19 [History] Levothyroxine Sodium 125 mcg PO DAILY 12/03/19 [History] Magnesium Oxide 400 mg PO HS 12/03/19 [History] Meclizine HCl 12.5 mg PO BID PRN 12/03/19 [History] Omeprazole 40 mg PO DAILY 12/03/19 [History] Ondansetron HCl [Zofran] 4 mg PO Q8H PRN 12/03/19 [History] Rizatriptan Benzoate [Maxalt] 10 mg PO DAILY PRN 12/03/19 [History] traZODone HCL 100 mg PO HS PRN 12/03/19 [History] Nicotine 21Mg/24Hr Patch [Habitrol] 1 patch TRANSDERM DAILY #30 patch 12/08/19 [Rx] Albuterol Inhaler [Ventolin Hfa Inhaler] 2 puff INHALATION RT-QID PRN 12/17/19 [History] Apixaban [Eliquis] 5 mg PO BID 12/17/19 [History] Furosemide [Lasix] 20 mg PO BID PRN 12/17/19 [History] rOPINIRole HCL [Requip] 0.5 mg PO BID 12/17/19 [History] Montelukast [Singulair] 10 mg PO HS 02/02/20 [History] Cefepime HCl [Maxipime] 2 gm IV Q12H #80 vial 02/06/20 [Rx] oxyCODONE HCL/ACETAMINOPHEN [Percocet 10-325 mg] 1 tab PO Q6HR PRN 7 Days #28 tab 02/07/20 [Rx] Ergocalciferol [Vitamin D2] 50,000 unit PO Q7D 02/24/20 [History] Loratadine 10 mg PO DAILY 02/24/20 [History] Melatonin 5 mg PO DAILY 02/24/20 [History] diphenhydrAMINE [Benadryl] 50 mg PO BID 02/24/20 [History] Follow up Appointment(s)/Referral(s): Toney Martino, [REFERRING] - [facility] Healing[facility]Center [NON-STAFF] - 1 Week (Please call for appoinment post discharge.) [facility], [NON-STAFF] - Activity/Diet/Wound Care/Special Instructions: 1. Wound care every day after discharge for removal of iodoform gauze and repacking with iodoform gauze with dry dressing coverage 2. keep wound site clean; may reinforce dressing as needed 3. Ambulate to tolerance 4. Avoid excessive bending, twisting, or lifting; avoid heavy or rigorous activity 5. Avoid overhead work 6. Take medications as prescribed 7. Continue with antibiotic medications as prescribed by infectious disease Discharge Disposition: HOME WITH HOME HEALTH SERVICES
--- NOTE | 2020-03-01 14:34 | PN ---
PROGRESS NOTE DATE OF SERVICE: 03/01/2020 REASON FOR FOLLOWUP: Lumbar surgical site infection. INTERVAL HISTORY: The patient is currently afebrile. Patient is breathing comfortably. The patient denies having any chest pain. No shortness of breath. No cough. Overall pain and discomfort as well as drainage from the lumbar spine area has decreased. PHYSICAL EXAMINATION: Blood pressure 138.60 with a pulse of 80, temperature 98.8 she is 93% on room air. General description is a middle-aged female up in the bed, in no distress. RESPIRATORY SYSTEM: Unlabored breathing, clear to auscultation anteriorly. HEART: S1, S2. Regular rate and rhythm. ABDOMEN: Soft, no tenderness. The lumbar incision looks clean. No drainage was noticed. LABS: No new labs have been obtained today. Culture so far negative. DIAGNOSTIC IMPRESSION AND PLAN: Patient with a lumbar spine infection, postsurgical status, post removal of the hardware. Culture has been negative so far. Previous culture positive for Enterobacter. Recommend continue cefepime 2 g q.12 for another 3-4 weeks with weekly monitor CBC, BMP, and sedimentation rate and close outpatient. MMODL / IJN: [id number] /
--- NOTE | 2020-03-01 22:48 | P.PN ---
Subjective Progress Note Date: 03/01/20 She continues to drain from her surgical site, wound team following. She is being set up with IV cefepime through the infusion center Objective - Vital Signs Vital signs: Vital Signs Temp 98.8 F 03/01/20 07:00 Pulse 80 03/01/20 07:00 Resp 18 03/01/20 07:00 BP 108/60 03/01/20 07:00 Pulse Ox 93 L 03/01/20 07:00 Intake & Output 03/01/20 03/01/20 03/02/20 06:59 18:59 06:59 Other: Voiding Method Toilet # Voids 2 - Exam General: well nourished, well developed, NAD. Vitals reviewed Lungs: normal respiratory effort, no wheezes or rales CV: Regular rate and rhythm, no murmur. Peripheral pulses 2+ Abdomen: soft, nondistended, no organomegaly Skin: warm and dry. Lumbar midline with gauze, scant serous drainage - Labs CBC & Chem 7: 02/28/20 07:31 02/28/20 07:31 Labs: Microbiology - Last 24 Hours (Table) 02/25/20 15:20 Anaerobic Culture - Final Back 02/25/20 15:20 Anaerobic Culture - Final Back 02/25/20 15:20 Anaerobic Culture - Final Back Assessment and Plan (1) Fibromyalgia Status: Acute Code(s): M79.7 - FIBROMYALGIA SNOMED Code(s): 096969165 (2) Soft tissue infection of lumbar spine Status: Acute Code(s): M79.89 - OTHER SPECIFIED SOFT TISSUE DISORDERS; B99.9 - UNSPECIFIED INFECTIOUS DISEASE SNOMED Code(s): 487519645 (3) Chronic low back pain Status: Acute Code(s): M54.5 - LOW BACK PAIN; G89.29 - OTHER CHRONIC PAIN SNOMED Code(s): 715814254 (4) History of blood disorder Status: Acute Code(s): Z86.2 - PRSNL HISTORY OF [facility] Code(s): 829114809 (5) Hyperlipidemia Status: Acute Code(s): E78.5 - HYPERLIPIDEMIA, UNSPECIFIED SNOMED Code(s): 93329125 (6) Lumbar degenerative disc disease Status: Acute Code(s): M51.36 - OTHER INTERVERTEBRAL DISC DEGENERATION, LUMBAR REGION SNOMED Code(s): 76322826 (7) Lumbar facet arthropathy Status: Acute Code(s): M47.816 - SPONDYLOSIS W/O MYELOPATHY OR RADICULOPATHY, LUMBAR REGION SNOMED Code(s): 189047724 (8) Lumbosacral pain Status: Acute Code(s): M54.5 - LOW BACK PAIN SNOMED Code(s): 105639846 (9) UTI (urinary tract infection) Status: Acute Code(s): N39.0 - URINARY TRACT INFECTION, SITE NOT SPECIFIED SNOMED Code(s): 97261626 (10) Upper extremity weakness Status: Acute Code(s): R29.898 - OTH SYMPTOMS AND SIGNS INVOLVING THE MUSCULOSKELETAL SYSTEM SNOMED Code(s): 718423247 Plan: 1. Lumbar spine seroma with persistent drainage. Operative management per Surg dayron Pain control. Continue with broad spectrum antibiotics and follow cultures. Home abx through infusion center 2. Multiple sclerosis. Continue adderall, ropinorole 3. Fibromyalgia. Continue home cymbalta, robaxin 4. Hypothyroid 5. Hx DVT. Continue eliquis
--- NOTE | 2020-03-04 10:37 | CDI ---
Documentation Clarification Form Date: 03/04/20 From: Magui Hernandez CCS Phone: If you have a question about this query, please contact Eileen Garcia, [employer] at [phone] between 8am and 5pm. Admit Date: 02/27/20 Discharge Date:03/01/20 Patient Name: Karlos Rojo Visit Number: [id number] ATTENTION: The Clinical Documentation Specialists (CDI) and [facility] Coding Staff appreciate your assistance in clarifying documentation. Please respond to the clarification below the line at the bottom and electronically sign. The CDI & [facility] Coding staff will review the response and follow-up if needed. Please note: Queries are made part of the Legal Health Record. If you have any questions, please contact the author of this message via ITS. Dear Dr. Olivera, The diagnosis osteomyelitis was documented in the Consult dated 02/25 and 03/01, but is not noted in subsequent documentation. History/Risk Factors: Post surgical deep wound infection, Obesity, Tobacco Clinical Indicators: Post surgical deep wound infection WBC: 14.2, 15.0 Treatment: Excisional debridement, IV Maxipime 2 gm Q 12 HR Please clarify if the osteomyelitis was: Acute osteomyelitis present/ active this admission Chronic osteomyelitis Present/active this admission Ruled out Other, please specify Clinically unable to determine i do not see obvious evidence of osteomyelitis MTDD
== END 2020-03-01 15:00 | disposition home health service (06) | DRG 857 ==
LOC: OR 13:41 → 4SSUR 15:20 → OR 02-26 10:10 → 4SSUR 02-26 10:10 → OBSVTOIN 02-27 10:24
PROVIDERS: ADMIT Orthopaedic Surgery Orthopaedic Surgery of the Spine; ATTEND Orthopaedic Surgery Orthopaedic Surgery of the Spine
PROC: 0JB70ZZ Excision of Back Subcutaneous Tissue and Fascia, Open Approach (ICD-10-PCS; principal; 2020-02-25 14:40)
DX: T81.42XA Infection following a procedure, deep incisional surgical site, initial encounter (principal); D68.51 Activated protein C resistance; T81.31XA Disruption of external operation (surgical) wound, not elsewhere classified, initial encounter; E87.1 Hypo-osmolality and hyponatremia; E27.40 Unspecified adrenocortical insufficiency; N39.0 Urinary tract infection, site not specified; I50.9 Heart failure, unspecified; J44.9 Chronic obstructive pulmonary disease, unspecified; G35 Multiple sclerosis; H91.90 Unspecified hearing loss, unspecified ear; E78.5 Hyperlipidemia, unspecified; M79.7 Fibromyalgia; G89.29 Other chronic pain; M19.90 Unspecified osteoarthritis, unspecified site; G47.33 Obstructive sleep apnea (adult) (pediatric); G43.909 Migraine, unspecified, not intractable, without status migrainosus; R41.3 Other amnesia; F90.9 Attention-deficit hyperactivity disorder, unspecified type; F41.9 Anxiety disorder, unspecified; F32.9 Major depressive disorder, single episode, unspecified; F17.210 Nicotine dependence, cigarettes, uncomplicated; E66.9 Obesity, unspecified; M51.36 Other intervertebral disc degeneration, lumbar region; M47.816 Spondylosis without myelopathy or radiculopathy, lumbar region; R53.1 Weakness; E03.9 Hypothyroidism, unspecified; L08.9 Local infection of the skin and subcutaneous tissue, unspecified; Z68.38 Body mass index [BMI] 38.0-38.9, adult; Z79.899 Other long term (current) drug therapy; Z79.890 Hormone replacement therapy; Z79.01 Long term (current) use of anticoagulants; Z86.718 Personal history of other venous thrombosis and embolism; Z87.01 Personal history of pneumonia (recurrent); Z87.440 Personal history of urinary (tract) infections; Z90.49 Acquired absence of other specified parts of digestive tract; Z98.51 Tubal ligation status; Z98.890 Other specified postprocedural states; Z88.1 Allergy status to other antibiotic agents; Z88.2 Allergy status to sulfonamides; Z88.8 Allergy status to other drugs, medicaments and biological substances; Z82.49 Family history of ischemic heart disease and other diseases of the circulatory system; Z83.2 Family history of diseases of the blood and blood-forming organs and certain disorders involving the immune mechanism; Z80.49 Family history of malignant neoplasm of other genital organs
CPT/HCPCS: 80048; 85025; 85652; 86140; 87070; 87075; 87205

== ENCOUNTER → 2020-08-12 | Outpatient (CLI) | payer MEDICARE, OTHER ==
--- NOTE | 2020-08-12 15:30 | CT ---
EXAMINATION TYPE: CT lumbar spine w con DATE OF EXAM: 08/12/2020 COMPARISON: HISTORY: Lower back pain, post surgical infection CT DLP: 1465.8 mGycm CONTRAST: CT scan of the lumbar is performed with IV Contrast, patient injected with 100 mL of Isovue 300. TECHNIQUE: CT of the lumbar spine is performed on a spiral scan at 3 mm thick sections. Reconstructed images are performed in the coronal and sagittal planes. FINDINGS: T12-L1: No focal disc herniation or significant disc bulge is evident. No spinal canal stenosis or neural foraminal stenosis is present. L1-L2: No focal disc herniation or significant disc bulge is evident. No spinal canal stenosis or n eural foraminal stenosis is present L2-L3: No focal disc herniation or significant disc bulge is evident. No spinal canal stenosis or n eural foraminal stenosis is present L3-L4: No focal disc herniation or significant disc bulge is evident. No spinal canal stenosis or n eural foraminal stenosis is present L4-L5: Disc bulge is present with moderate anterior thecal sac compression. No AP spinal canal stenos is is present. Moderate bilateral foraminal narrowing is present. L5-S1: Disc uncovering is present with anterior thecal sac contact. No spinal canal stenosis or neura l foraminal stenosis is present. Vertebral alignment appears normal. IMPRESSION: Degenerative disc changes with mild disc bulging L4-5 contributing to moderate bilateral foraminal na rrowing.
== END | disposition home or self-care (01) ==
LOC: RADCTMAIN 13:56
PROVIDERS: ATTEND Family Medicine
DX: M51.26 Other intervertebral disc displacement, lumbar region (principal); M51.36 Other intervertebral disc degeneration, lumbar region; Z88.8 Allergy status to other drugs, medicaments and biological substances; Z88.6 Allergy status to analgesic agent; Z88.1 Allergy status to other antibiotic agents
CPT/HCPCS: 72132; Q9967

== ENCOUNTER 2020-10-07 08:54 | Inpatient (IN) | payer MEDICARE, OTHER ==
[2020-10-07] MEDS ORDERED: SODIUM CHLORIDE 0.9% 1,000 ML IV ONE (09:26)
[2020-10-07 10:16] LABS: Appearance,Urine Clear (Clear); Bilirubin,Urine Negative (Negative); Blood,Urine Negative (Negative); Color,Urine Yellow; Glucose,Urine (UA) Negative (Negative); Ketones,Urine Negative (Negative); Leukocyte Esterase,Urine Negative (Negative); Nitrite,Urine Negative (Negative); Protein,Urine Negative (Negative); Urobilinogen,Urine <2.0 mg/dL (<2.0)
[2020-10-07 10:22] LABS: ALT 27 U/L (4-34); AST 32 U/L (14-36); African American GFR (CKD) >90 (>60 ml/min/1.73 sqM); Albumin 3.9 g/dL (3.5-5.0); Alkaline Phosphatase 77 U/L (38-126); Anion Gap 5 mmol/L; Blood Urea Nitrogen 14 mg/dL (7-17); C Reactive Protein 43.9 mg/L (<10.0); Calcium 8.5 mg/dL (8.4-10.2); Carbon Dioxide 29 mmol/L (22-30); Chloride 101 mmol/L (98-107); Glucose 144 mg/dL (74-99); Non-African American GFR(CKD) >90 (>60 ml/min/1.73 sqM); Potassium 4.1 mmol/L (3.5-5.1); Sodium 135 mmol/L (137-145); Total Bilirubin 0.6 mg/dL (0.2-1.3); Total Protein 6.3 g/dL (6.3-8.2)
--- NOTE | 2020-10-07 11:17 | CT ---
EXAMINATION TYPE: CT brain josh alcala con DATE OF EXAM: 10/07/2020 COMPARISON: 12/03/2019 HISTORY: Headache, neck pain, weakness and fever. CT DLP: 1694.[address] of the brain was performed. The ventricles, basal cisterns and sulci overlying the cerebral convexities demonstrate mild enlargem ent. There is no evidence for intracranial hemorrhage or sulcal effacement. There is decreased attenuatio n about the periventricular white matter and deep white matter of both cerebral hemispheres, compatib le with chronic small vessel ischemia. No mass effects are seen. If symptoms persist consider MRI. Osseous calvarium is intact. IMPRESSION: 1. Age related atrophic and chronic small vessel ischemic change without acute intracranial process seen at this time. CT Cervical Spine: Unenhanced CT of the cervical spine was performed with bone and soft tissue window settings submitted . Coronal and sagittal reconstruction is obtained. There is normal alignment and prevertebral soft tissues. No evidence for acute cervical fracture . Scattered degenerative disc disease and spondylosis. Biapical scarring. IMPRESSION: 1. No evidence for acute fracture or subluxation of the cervical spine.
[2020-10-07 12:18] LABS: Anisocytosis Slight; Basophils % (A) 0 %; Eosinophils # (A) 0.2 k/uL (0-0.7); Eosinophils % (A) 2 %; HCT 39.1 % (34.0-46.0); HGB 12.9 gm/dL (11.4-16.0); Lymphocytes # (A) 2.2 k/uL (1.0-4.8); Lymphocytes % (A) 17 %; MCH 25.7 pg (25.0-35.0); MCHC 32.9 g/dL (31.0-37.0); MCV 77.9 fL (80.0-100.0); Mean Platelet Volume 6.9; Microcytosis Slight; Monocytes # (A) 0.5 k/uL (0-1.0); Monocytes % (A) 4 %; Neutrophils % (A) 77 %; Platelet Count 254 k/uL (150-450); RBC 5.01 m/uL (3.80-5.40); RDW 16.2 % (11.5-15.5)
[2020-10-07] MEDS ORDERED: MORPHINE SULFATE 4 MG/ML SYRINGE IVP STA (12:23)
[2020-10-07 12:34] LABS: INR 0.9 (<1.2); Partial Thromboplastin Time 27.4 sec (22.0-30.0)
--- NOTE | 2020-10-07 12:34 | XR ---
EXAMINATION TYPE: XR chest 2V DATE OF EXAM: 10/07/2020 COMPARISON: 01/07/2020 INDICATION: Cough, infection TECHNIQUE: Single frontal view of the chest is obtained. FINDINGS: The heart size is normal. The pulmonary vasculature is normal. The lungs are clear. IMPRESSION: 1. No acute pulmonary process.
[2020-10-07] MEDS ORDERED: NALOXONE 0.4 MG/ML 1 ML VIAL IV PRN (13:00)
--- NOTE | 2020-10-07 13:00 | ED ---
General Adult HPI - General Chief complaint: Recheck/Abnormal Lab/Rx Stated complaint: headache,stiffness,infection Time Seen by Provider: 10/07/20 09:10 Source: patient Mode of arrival: wheelchair Limitations: no limitations - History of Present Illness Initial comments: Patient is a 50-year-old female who is sent in to the emergency room by Dr. Palomino. Patient has multiple medical conditions. She was recently hospitalized at [facility] last month for sepsis. Patient reports to me that they could not identify the source. She was discharged home and continued having weakness, neck stiffness, fevers. Patient did have neck surgery last December and has had multiple lumbar revisions due to postop infection. She was on antibiotics until one week ago. Reports that she is having low-grade fevers at home. Admits to headaches with disorientation. She also states that she has. Reports that she saw Dr. Piper who was concerned for encephalitis and wanted her evaluated by neurology. She also admits to urinary incontinence which is common when she has a UTI. No other alleviating, precipitating or modifying factors - Related Data Home Medications Medication Instructions Recorded Confirmed Gabapentin 800 mg PO TID 08/13/16 10/07/20 LORazepam [Ativan] 2 mg PO HS 05/21/17 10/07/20 Zonisamide [Zonegran] 200 mg PO HS PRN 10/15/17 10/07/20 Potassium Chloride [Klor-Con 20] 20 meq PO BID PRN 09/30/18 10/07/20 Dextroamphetamine/Amphetamine 30 mg PO BID 11/13/18 10/07/20 [Adderall] DULoxetine HCL [Cymbalta] 60 mg PO BID 04/01/19 10/07/20 Morphine Sulfate ER [Ms Contin] 30 mg PO BID 04/01/19 10/07/20 Levothyroxine Sodium 125 mcg PO DAILY 12/03/19 10/07/20 Meclizine HCl 12.5 mg PO BID PRN 12/03/19 10/07/20 Omeprazole 40 mg PO DAILY 12/03/19 10/07/20 Ondansetron HCl [Zofran] 4 mg PO DAILY PRN 12/03/19 10/07/20 Rizatriptan Benzoate [Maxalt] 10 mg PO DAILY PRN 12/03/19 10/07/20 traZODone HCL 100 mg PO HS PRN 12/03/19 10/07/20 Apixaban [Eliquis] 5 mg PO BID 12/17/19 10/07/20 Furosemide [Lasix] 20 mg PO BID PRN 12/17/19 10/07/20 Ergocalciferol [Vitamin D2] 50,000 unit PO TH 02/24/20 10/07/20 Loratadine 10 mg PO DAILY 02/24/20 10/07/20 diphenhydrAMINE [Benadryl] 50 mg PO BID 02/24/20 10/07/20 Celecoxib [CeleBREX] 200 mg PO DAILY 10/07/20 10/07/20 Hydrocortisone [Cortef] 10 mg PO BID 10/07/20 10/07/20 Morphine Sulfate ER [Ms Contin] 15 mg PO BID 10/07/20 10/07/20 oxyCODONE HCL/ACETAMINOPHEN 1 tab PO QID 10/07/20 10/07/20 [Percocet 10-325 mg] risperiDONE [RisperDAL] 1 mg PO HS 10/07/20 10/07/20 tiZANidine HCL 6 mg PO TID 10/07/20 10/07/20 Allergies Allergy/AdvReac Type Severity Reaction Status Date / Time doxycycline Allergy Rash/Hives Verified 10/07/20 11:04 glatiramer (copolymer 1) Allergy Rapid Verified 10/07/20 11:04 [From Copaxone] Heart Rate,hives, skin flushing sulfamethoxazole Allergy blisters Verified 10/07/20 11:04 [From Bactrim] in mouth trimethoprim [From Bactrim] Allergy blisters Verified 10/07/20 11:04 in mouth steroids AdvReac genital Uncoded 10/07/20 09:12 burning & rashes but still takes steroids. Review of Systems ROS Statement: Those systems with pertinent positive or pertinent negative responses have been documented in the HPI. ROS Other: All systems not noted in ROS Statement are negative. Past Medical History Past Medical History: Asthma, Blood Disorder, Heart Failure, COPD, Deep Vein Thrombosis (DVT), Eye Disorder, Fibromyalgia, Hearing Disorder / Deafness, Hyperlipidemia, Memory Impairment, Musculoskeletal Disorder, Neurologic Disorder, Osteoarthritis (OA), Pneumonia, Skin Disorder, Sleep Apnea/CPAP/BIPAP, Syncope, Thyroid Disorder Additional Past Medical History / Comment(s): Multiple sclerosis, bronchitis, factor 5 leiden, RUBI-does not wear device, DVT L leg 2013, hiatal hernia, hoarseness/leucoplasia, adrenal insufficiency/chronic steroid use, migraines, DJD, chronic back pain, bursitis, optic neuritis bilaterally, glaucoma , tinnit is, UTI, rosacia, sinus problems, insomnia, hypersomnia. carpal tunel, vertigo., states infection at back surgery site- with visiting nurse and is receiving IV antibiotic through PICC line . History of Any Multi-Drug Resistant Organisms: None Reported Date of last positivie culture/infection: 2013 MDRO Source:: stomach Past Surgical History: Back Surgery, Bladder Surgery, Section, Cholec ystectomy, Tubal Ligation Additional Past Surgical History / Comment(s): 09-24-18 bladder stimulator, 02/05/19 microlarygoscopy/bx, vocal cord polypectomies, cervical bx, bladder suspension, EGD with bx, colonoscopy,. Laminectomy with decompression (01/09/20), Drainage of seroma back (02/02/20).,. PICC line . Past Anesthesia/Blood Transfusion Reactions: Motion Sickness Additional Past Anesthesia/Blood Transfusion Reaction / Comment(s): occasional bad headaches. Past Psychological History: ADD/ADHD, Anxiety, Depression Smoking Status: Current every day smoker Past Alcohol Use History: Occasional Past Drug Use History: Marijuana - Past Family History Brother(s) Family Medical History: Deep Vein Thrombosis (DVT) Father Family Medical History: Deep Vein Thrombosis (DVT) Additional Family Medical History / Comment(s): Patient states that her father has no cardiac history but his father had previous LA's. Mother Family Medical History: Cancer, Deep Vein Thrombosis (DVT), Pulmonary Embolus Additional Family Medical History / Comment(s): Cervical cancer. General Exam Limitations: no limitations Course Vital Signs 10/07/20 10/07/20 09:09 12:30 Temperature 99.2 F Pulse Rate 104 H 76 Respiratory 18 18 Rate Blood Pressure 92/64 100/73 O2 Sat by Pulse 99 95 Oximetry Medical Decision Making - Medical Decision Making Arrival patient is placed into room 23. A thorough history and physical exam was performed. IV is established. Laboratory studies are conducted. Ever tarry studies are reviewed. Patient did go over for CT of her head. Results are discussed with the patient. I did call and speak with Dr. Ye. She will be admitted for infectious disease and neurology consultation. Patient is awaiting a bed on the floor - Lab Data Result diagrams: 10/07/20 12:03 10/07/20 09:44 Lab Results 10/07/20 10/07/20 10/07/20 Range/Units 09:44 09:44 09:55 WBC (3.8-10.6) k/uL RBC (3.80-5.40) m/uL Hgb (11.4-16.0) gm/dL Hct (34.0-46.0) % MCV (80.0-100.0) fL MCH (25.0-35.0) pg MCHC (31.0-37.0) g/dL RDW (11.5-15.5) % Plt Count (150-450) k/uL MPV Neutrophils % % Lymphocytes % % Monocytes % % Eosinophils % % Basophils % % Neutrophils # (1.3-7.7) k/uL Lymphocytes # (1.0-4.8) k/uL Monocytes # (0-1.0) k/uL Eosinophils # (0-0.7) k/uL Basophils # (0-0.2) k/uL Anisocytosis Microcytosis ESR (0-20) mm/hr PT (9.0-12.0) sec INR (<1.2) APTT (22.0-30.0) sec Sodium 135 L (137-145) mmol/L Potassium 4.1 (3.5-5.1) mmol/L Chloride 101 (98-107) mmol/L Carbon Dioxide 29 (22-30) mmol/L Anion Gap 5 mmol/L BUN 14 (7-17) mg/dL Creatinine 0.58 (0.52-1.04) mg/dL Est GFR (CKD-EPI)AfAm >90 (>60 ml/min/1.73 sqM) Est GFR (CKD-EPI)NonAf >90 (>60 ml/min/1.73 sqM) Glucose 144 H (74-99) mg/dL Plasma Lactic Acid Jasbir 1.2 (0.7-2.0) mmol/L Calcium 8.5 (8.4-10.2) mg/dL Total Bilirubin 0.6 (0.2-1.3) mg/dL AST 32 (14-36) U/L ALT 27 (4-34) U/L Alkaline Phosphatase 77 (38-126) U/L C-Reactive Protein 43.9 H (<10.0) mg/L Total Protein 6.3 (6.3-8.2) g/dL Albumin 3.9 (3.5-5.0) g/dL Urine Color Yellow Urine Appearance Clear (Clear) Urine pH 6.0 (5.0-8.0) Ur Specific [place] 1.010 (1.001-1.035) Urine Protein Negative (Negative) Urine Glucose (UA) Negative (Negative) Urine Ketones Negative (Negative) Urine Blood Negative (Negative) Urine Nitrite Negative (Negative) Urine Bilirubin Negative (Negative) Urine Urobilinogen <2.0 (<2.0) mg/dL Ur Leukocyte Esterase Negative (Negative) 10/07/20 10/07/20 Range/Units 12:03 12:03 WBC 13.0 H (3.8-10.6) k/uL RBC 5.01 (3.80-5.40) m/uL Hgb 12.9 (11.4-16.0) gm/dL Hct 39.1 (34.0-46.0) % MCV 77.9 L (80.0-100.0) fL MCH 25.7 (25.0-35.0) pg MCHC 32.9 (31.0-37.0) g/dL RDW 16.2 H (11.5-15.5) % Plt Count 254 (150-450) k/uL MPV 6.9 Neutrophils % 77 % Lymphocytes % 17 % Monocytes % 4 % Eosinophils % 2 % Basophils % 0 % Neutrophils # 10.0 H (1.3-7.7) k/uL Lymphocytes # 2.2 (1.0-4.8) k/uL Monocytes # 0.5 (0-1.0) k/uL Eosinophils # 0.2 (0-0.7) k/uL Basophils # 0.0 (0-0.2) k/uL Anisocytosis Slight Microcytosis Slight ESR 16 (0-20) mm/hr PT 10.0 (9.0-12.0) sec INR 0.9 (<1.2) APTT 27.4 (22.0-30.0) sec Sodium (137-145) mmol/L Potassium (3.5-5.1) mmol/L Chloride (98-107) mmol/L Carbon Dioxide (22-30) mmol/L Anion Gap mmol/L BUN (7-17) mg/dL Creatinine (0.52-1.04) mg/dL Est GFR (CKD-EPI)AfAm (>60 ml/min/1.73 sqM) Est GFR (CKD-EPI)NonAf (>60 ml/min/1.73 sqM) Glucose (74-99) mg/dL Plasma Lactic Acid Jasbir (0.7-2.0) mmol/L Calcium (8.4-10.2) mg/dL Total Bilirubin (0.2-1.3) mg/dL AST (14-36) U/L ALT (4-34) U/L Alkaline Phosphatase (38-126) U/L C-Reactive Protein (<10.0) mg/L Total Protein (6.3-8.2) g/dL Albumin (3.5-5.0) g/dL Urine Color Urine Appearance (Clear) Urine pH (5.0-8.0) Ur Specific [place] (1.001-1.035) Urine Protein (Negative) Urine Glucose (UA) (Negative) Urine Ketones (Negative) Urine Blood (Negative) Urine Nitrite (Negative) Urine Bilirubin (Negative) Urine Urobilinogen (<2.0) mg/dL Ur Leukocyte Esterase (Negative) Disposition Clinical Impression: Chronic low back pain, Headache, Pyrexia Disposition: ADMITTED IP TO THIS [facility] Condition: Stable Is patient prescribed a controlled substance at d/c from ED?: No Decision to Admit Reason: Admit from EC Decision Date: 10/07/20 Decision Time: 13:00
[2020-10-07 13:06] LABS: Erythrocyte Sedimentation Rate 16 mm/hr (0-20)
[2020-10-07] MEDS: SODIUM CHLORIDE 0.9% 1,000 ML IV SCH ×2 (13:54→21:11)
[2020-10-07] MEDS ORDERED: POTASSIUM CHLORIDE ER 20 MEQ TAB.ER PO PRN (14:53)
[2020-10-07] MEDS ORDERED: traZODone HCL 100 MG TAB PO PRN (14:53)
[2020-10-07] MEDS ORDERED: FUROSEMIDE 20 MG TAB PO PRN (14:53)
[2020-10-07] MEDS: GABAPENTIN 400 MG CAP PO SCH ×2 (16:58→21:09)
[2020-10-07] MEDS: tiZANidine 4 MG TAB PO SCH ×2 (17:02→21:24)
[2020-10-07] MEDS: oxyCODONE-APAP 10-325MG 1 EACH TAB PO SCH ×2 (18:09→21:07)
[2020-10-07] MEDS ORDERED: NON FORMULARY DRUG (Dextroamphetamine/Amphetamine [Adderall] 30 MG Tablet) PO SCH (21:00)
[2020-10-07] MEDS: APIXABAN 5 MG TAB PO SCH (21:07)
[2020-10-07] MEDS: DULoxetine HCL 60 MG CAPSULE.DR PO SCH (21:10)
[2020-10-07] MEDS: LORazepam 1 MG TAB PO SCH (21:10)
[2020-10-07] MEDS: HYDROCORTISONE 10 MG TAB PO SCH (21:24)
[2020-10-07] MEDS: risperiDONE 1 MG TAB PO SCH (21:24)
[2020-10-08] MEDS: MORPHINE SULFATE ER 15 MG TABLET PO SCH ×3 (00:11→22:08)
[2020-10-08] MEDS: diphenhydrAMINE 25 MG CAP PO PRN ×3 (00:11→22:09)
[2020-10-08] MEDS: MORPHINE SULFATE ER 30 MG TABLET PO SCH ×3 (00:12→22:10)
[2020-10-08] MEDS ORDERED: LEVOTHYROXINE 125 MCG TAB PO SCH (06:30)
--- NOTE | 2020-10-08 06:54 | CONS ---
CONSULTATION DATE OF SERVICE: 10/07/2020 REASON FOR CONSULTATION: Sepsis. HISTORY OF PRESENT ILLNESS: The patient is a 50-year-old female with recent admission to [facility] with left lower jaw infected tooth. The patient received IV antibiotic therapy. Subsequent did have an extraction of the tooth by her oral surgeon and subsequently readmission to the hospital with concern for possible sepsis. At that point, she did have a CT of the lower jaw that was negative for any abscess or osteomyelitis. She was discharged home on oral Augmentin. The patient has completed. The patient has now been sent to the ER by her primary care physician with concern for possible sepsis. The patient has been complaining of multiple symptoms including pain in her neck. Abdomen and just generalized not feeling well. When asked specifically if she has a fever, she said yes but is unable to tell me exactly how high the fever was at home. The patient has been complaining of some headache, mostly frontal headache 3 to 4/10, no radiation. Denies any nausea, no vomiting. No pain to the teeth. No difficulty swallowing. No diarrhea. With these symptoms, the patient has been evaluated by the ER physician. On arrival to the ER, the patient has been afebrile. The patient did have elevated white count 13,000 with 10% neutrophils. The patient's creatinine was 0.58. CRP is 43.9. Urine has been negative. Mathews PCR was negative. The patient did have a chest x-ray. No acute pulmonary process. The head and cervical spine CT came back negative. Patient has been admitted to the hospital. Infectious Disease was consulted for further management and concern for possible encephalitis. The patient is currently awake, alert, and knows that she is in the hospital. REVIEW OF SYSTEMS: Positive points have been mentioned in HPI. Rest of the systems are negative. PAST MEDICAL HISTORY: Asthma, COPD, DVT, fibromyalgia, hyperlipidemia, , pneumonia, osteoarthritis, sleep apnea, multiple sclerosis. PAST SURGICAL HISTORY: Back surgery, bladder surgery, , cholecystectomy, tubal ligation. SOCIAL HISTORY: Current everyday smoker. Occasionally drinks and did admit to marijuana use. FAMILY HISTORY: History of DVT. Father also history of DVT. ALLERGIES: DOXYCYCLINE, SULFAMETHOXAZOLE, TRIMETHOPRIM. MEDICATIONS: The patient is currently on Eliquis, Cymbalta, Lasix, Neurontin, hydrocortisone, Synthroid, Claritin, Ativan, Mobic, Narcan, Percocet, Protonix, K-Dur, Risperdal, Zanaflex, Desyrel. PHYSICAL EXAMINATION: VITAL SIGNS: Blood pressure 132/79 with a pulse of 83, temperature 98.3, she is 95% on room air. GENERAL DESCRIPTION: A middle-aged female lying in bed in no distress. No tachypnea or accessory muscles of respiration use. HEENT: Examination shows no pallor or scleral icterus. Oral mucous membrane is dry. NECK: Trachea central, no thyromegaly. LUNGS: Unlabored breathing, clear to auscultation with no wheezes or crackles. HEART: S1, S2. Regular rate and rhythm. ABDOMEN: Soft, no tenderness. No guarding, no rigidity. EXTREMITIES: No edema of the feet. No evidence of any swelling or redness or any joint swelling. NEUROLOGICAL: The patient is awake, alert, oriented x3. Mood and affect normal. LABS: Hemoglobin is 12.8, white count 13.0, BUN of 14, creatinine 0.58. Liver enzymes are normal. CRP is 43.9. Procalcitonin 0.09. Urine is negative. Mathews PCR was negative. Chest x-ray was negative. DIAGNOSTIC IMPRESSION: 1. Patient admitted to the hospital with nonspecific generalized symptoms of not feeling well and concern for fever, though no fever has been recorded in this hospital so far. The patient's workup so far including a chest x-ray has been negative. Urine is negative. Abdomen is soft and nontender. No evidence of any cellulitis or neck rigidity. Underlying cellulitis less likely. 2. Patient did have elevated white count which could be related to chronic steroid use that the patient is receiving for the . PLAN: 1. We will check blood cultures and influenza markers in the morning. 2. We will hold on any systemic antibiotic therapy at this point as no obvious focus of infection. 3. Await Neurology evaluation as the patient . 4. We will follow on clinical condition and investigations to further adjust medication if needed. Thank you for this consultation. Will follow this patient along with you. MMODL / IJN: [id number] /
[2020-10-08] MEDS: PANTOPRAZOLE 40 MG TABLET PO SCH (08:06)
[2020-10-08] MEDS: GABAPENTIN 400 MG CAP PO SCH ×3 (08:57→22:11)
[2020-10-08] MEDS: DULoxetine HCL 60 MG CAPSULE.DR PO SCH ×2 (08:58→22:08)
[2020-10-08] MEDS: APIXABAN 5 MG TAB PO SCH ×2 (08:58→22:08)
[2020-10-08] MEDS: LORATADINE 10 MG TAB PO SCH (08:58)
[2020-10-08] MEDS: MELOXICAM 7.5 MG TAB PO SCH ×2 (08:59→09:22)
[2020-10-08] MEDS: oxyCODONE-APAP 10-325MG 1 EACH TAB PO SCH ×4 (09:00→22:09)
[2020-10-08] MEDS: NICOTINE 14MG/24HR PATCH TRANSDERM SCH (09:03)
[2020-10-08] MEDS: HYDROCORTISONE 10 MG TAB PO SCH ×2 (09:04→22:12)
[2020-10-08] MEDS: tiZANidine 4 MG TAB PO SCH ×3 (09:05→22:12)
[2020-10-08] MEDS: SODIUM CHLORIDE 0.9% 1,000 ML IV SCH ×2 (09:07→22:13)
[2020-10-08] MEDS ORDERED: MAGNESIUM SULFATE-D5W PMX 1 GM in DEXTROSE/WATER 1 100ML.BAG IVPB ONE (09:30)
[2020-10-08 10:09] LABS: Basophils # (A) 0.04 X 10*3/uL (0.00-0.10); Basophils % (A) 0.4 %; HCT 39.8 % (37.2-46.3); HGB 11.9 g/dL (12.0-15.0); Lymphocytes # (A) 2.07 X 10*3/uL (0.90-5.00); Lymphocytes % (A) 20.3 %; MCH 24.6 pg (27.0-32.0); MCHC 29.9 g/dL (32.0-37.0); MCV 82.2 fL (80.0-97.0); Mean Platelet Volume 9.4 fL (9.5-12.2); Monocytes # (A) 0.64 X 10*3/uL (0.20-1.00); Monocytes % (A) 6.3 %; Neutrophils # (A) 7.18 X 10*3/uL (1.80-7.70); Neutrophils % (A) 70.5 %; Platelet Count 271 X 10*3/uL (140-440); RBC 4.84 X 10*6/uL (4.10-5.20); RDW 16.7 % (11.5-14.5); WBC 10.18 X 10*3/uL (4.50-10.00)
[2020-10-08 11:07] LABS: African American GFR (CKD) 123.2 (60.0-200.0); Anion Gap 7.7 mmol/L (4.00-12.00); C Reactive Protein 3.6 mg/dL (0.0-0.8); Calcium 8.4 mg/dL (8.7-10.3); Carbon Dioxide 27.3 mmol/L (21.6-31.8); Non-African American GFR(CKD) 106.3 (60.0-200.0); Potassium 4.4 mmol/L (3.5-5.5)
--- NOTE | 2020-10-08 11:19 | CT ---
EXAMINATION TYPE: CT abdomen pelvis wo con DATE OF EXAM: 10/08/2020 COMPARISON: 12/26/2019 PET/CT INDICATION: Abdominal pain DLP: 2291 mGycm, Automated exposure control for dose reduction was used. CONTRAST: 0 mL of Isovue 300. Study performed without Oral Contrast TECHNIQUE: Axial images were obtained from above the diaphragm to the pubic rami in the axial plane a t 5 mm thick sections. Reconstructed images are reviewed on the computer in the coronal plane. FINDINGS: Limited CT sections are obtained the lung bases. The lung bases are clear. CT ABDOMEN: Liver: There is mild to moderate fatty infiltration to the liver. No discrete masses or cysts are den dent. Spleen: Normal Pancreas: Normal Adrenal glands: The adrenal glands are normal. The mass inferior to the left adrenal gland anterior t o the superior pole of the left kidney and medial to the spleen measures 3.5 x 3.0 cm. This has enlar ged from the 12/26/2019 PET/CT measuring 3.3 x 2.4 cm. Gallbladder: Normal Kidneys: No masses are evident. No hydronephrosis is present. No cysts are present. No renal stone s are evident. Aorta: Vascular calcification is within the aorta. Inferior vena cava: Normal. CT PELVIS: Loops of bowel within the abdomen and pelvis are normal. The studies performed without oral contr ast limiting bowel evaluation. Few diverticuli without acute diverticulitis may be present. Appendix: Short segment of the appendix is visualized appears unremarkable. Note inflammatory changes are evident. Urinary bladder: Normal. Genitourinary structures: Uterus appears unremarkable. Adnexal regions are normal. Osseous structures: No suspicious lytic or sclerotic lesions. IMPRESSIONS: 1. Enlarging nonspecific mass left upper quadrant could be associated with the adrenal gland. 2. CT abdomen and pelvis otherwise appears unremarkable
[2020-10-08] MEDS: QUEtiapine 25 MG TAB PO SCH ×2 (11:25→22:09)
[2020-10-08] MEDS: METOCLOPRAMIDE 5 MG/ML 2 ML VIAL IVP PRN ×2 (13:17→22:07)
[2020-10-08 17:28] LABS: Erythrocyte Sedimentation Rate 23 mm/Hr (0-20)
--- NOTE | 2020-10-08 18:26 | PN ---
PROGRESS NOTE DATE OF SERVICE: 10/08/2020 REASON FOR FOLLOWUP: Fever. INTERVAL HISTORY: The patient is currently afebrile, and no fever has been recorded during this hospital stay. The patient is currently complaining of generalized nonspecific symptoms of not feeling well. denies any headache. No chest pain. No cough. No abdominal pain. Did have some abdominal pain earlier, but no nausea or vomiting and no diarrhea. PHYSICAL EXAMINATION: Blood pressure 114/74 with a pulse of 91, temperature 98.4. She is 94% on room air. General description is a middle-aged female lying in bed in no distress. RESPIRATORY SYSTEM: Unlabored breathing. Clear to auscultation anteriorly. HEART: S1, S2. Regular rate and rhythm. ABDOMEN: Soft. No tenderness. LABS: Hemoglobin is 11.8, white count 10.8, creatinine 0.6, CRP is 3.9. Procalcitonin is 0.06. Mathews PCR was negative. CT of abdomen and pelvis is negative and did not show any evidence of subluxation in the spine. DIAGNOSTIC IMPRESSION AND PLAN: Patient admitted to hospital with subjective fever, but no fever has been recorded during this hospital stay. She did have mild elevated white count. However, the patient is on chronic steroids because of CT scan of abdomen and pelvis did show some enlarging adrenal gland and should be worked up further, but no evidence of any bacterial infection. Patient had normal procalcitonin, white count and hemoglobin without any antibiotic therapy. Blood culture so far negative. At this time we will keep the patient off antibiotic therapy. Monitor clinical course closely. MMODL / IJN: [id number] /
--- NOTE | 2020-10-08 20:11 | P.CNNES ---
History of Present Illness Consult date: 10/08/20 Requesting physician: Antonina Monk Reason for Consult: Acute/chronic cephalalgia, neck pain, history of lumbar infection History of Present Illness: Patient is a 50-year-old female with history of multiple sclerosis diagnosed in 2011 came to the hospital yesterday at 8:54 AM for headache, stiffness in the neck and "not feeling right". Patient states that she was recently hospitalized on 09/13/2020 at [facility] for acute onset of mental confusion, disorientation, and was diagnosed with "sepsis". She was discharged on 09/17/2020. Patient states that since then she has not been feeling right, not been able to talk right, her thoughts are jumbling, sometimes problem with sentences, hallucinations feeling "completely out of it". She does not remember. One time she remembers but she was laying in the bed, felt a man was standing next to her although it was hallucination. These hallucinations were really bad for 3 days. She saw her primary physician, who gave her prescription of Risperdal, but it did not help. Patient states that one day she took her son's prescribed Seroquel tablet, 50 mg and she felt much better. Patient was started on Seroquel today. She has not had any hallucinations today. Patient states that on 10/04/2020 she went to sleep at 9 PM, and did not break up until the next day Sunday at 3 PM. Sometimes she sleeps too much. Patient knows that it is not a MS exacerbation. She has received Ocrevus about 1-1/2-2 months ago. Patient states that since she came out of the hospital on 09/17/2020, she has been having headaches, which is often 10/10, although not at this time is 7/10. Patient is on multiple pain medications. She gets nausea, light sensitivity but no noise sensitivity. Patient smokes < half pack per day since age 12. Patient states that on 01/09/2020 she underwent lumbar spinal surgery and on 02/02/2020 she developed wound infection requiring surgery. About 2 weeks after on 02/25/2020, she had a third back surgery for "sepsis" infection. Patient says that she does have chronic low back pain, which affects her hips, gets sciatica. Patient's vital signs on arrival blood pressure 92/64, pulse rate 104, temperature 99.2. Patient has been afebrile since arrival to the hospital. Computed tomography scan of the cervical spine showed no evidence for acute fracture or subluxation of the cervical spine. CT head showed no acute process. Chest x-ray is normal, blood test shows the baby C 13.0 hemoglobin 12.9, platelets 254. PT/PTT normal, sodium 135 potassium 4.1 renal functions normal. Hepatic panel normal. UA negative. Her last hemoglobin A1c 6.9 on 01/07/2020. Patient is homozygous for factor V Leiden. Patient is on Apixaban. Patient's home medications include gabapentin 800 mg 3 times a day, lorazepam 2 mg at bedtime, zonisamide 200 mg at bedtime, Cymbalta 60 mg twice a day, MS Contin 45 mg twice a day, trazodone 100 mg at bedtime, Zanaflex 6 mg 3 times a day, Percocet 1 tablet 4 times a day. Review of Systems As mentioned in detail in HPI. She does have some back pain, fatigue, headaches, denies any abdominal pain, nausea vomiting diarrhea. Denies incontinence. Past Medical History Past Medical History: Asthma, Blood Disorder, Heart Failure, COPD, Deep Vein Thrombosis (DVT), Eye Disorder, Fibromyalgia, Hearing Disorder / Deafness, Hyperlipidemia, Memory Impairment, Musculoskeletal Disorder, Neurologic Disorder, Osteoarthritis (OA), Pneumonia, Skin Disorder, Sleep Apnea/CPAP/BIPAP, Syncope, Thyroid Disorder Additional Past Medical History / Comment(s): Multiple sclerosis, bronchitis, factor 5 leiden, RUBI-does not wear device, DVT L leg 2013, hiatal hernia, hoarseness/leucoplasia, adrenal insufficiency/chronic steroid use, migraines, DJD, chronic back pain, bursitis, optic neuritis bilaterally, glaucoma , tinnitis, UTI, rosacia, sinus problems, insomnia, hypersomnia. carpal tunel, vertigo.,hypoxia, states infection, at back surgery site- with visiting nurse and is receiving IV antibiotic through PICC line . History of Any Multi-Drug Resistant Organisms: None Reported Date of last positivie culture/infection: 2013 MDRO Source:: stomach Past Surgical History: Back Surgery, Bladder Surgery, Section, Cholecystectomy, Tubal Ligation Additional Past Surgical History / Comment(s): 09-24-18 bladder stimulator, 02/05/19 microlarygoscopy/bx, vocal cord polypectomies, cervical bx, bladder suspension, EGD with bx, colonoscopy,. Laminectomy with decompression (01/09/20), Drainage of seroma back (02/02/20).,. PICC line . Past Anesthesia/Blood Transfusion Reactions: Motion Sickness Additional Past Anesthesia/Blood Transfusion Reaction / Comment(s): occasional bad headaches. Past Psychological History: ADD/ADHD, Anxiety, Depression Additional Psychological History / Comment(s): . Smoking Status: Current every day smoker Past Alcohol Use History: Occasional Additional Past Alcohol Use History / Comment(s): 1 ppd smoker since 1981---has cut back and is attempting to use nicotine patch Past Drug Use History: Marijuana Additional Drug Use History / Comment(s): occ marijuana use- - Past Family History Brother(s) Family Medical History: Deep Vein Thrombosis (DVT) Father Family Medical History: Deep Vein Thrombosis (DVT) Additional Family Medical History / Comment(s): Patient states that her father has no cardiac history but his father had previous WA's. Mother Family Medical History: Cancer, Deep Vein Thrombosis (DVT), Pulmonary Embolus Additional Family Medical History / Comment(s): Cervical cancer. Medications and Allergies Home Medications Medication Instructions Recorded Confirmed Type Gabapentin 800 mg PO TID 08/13/16 10/07/20 History LORazepam [Ativan] 2 mg PO HS 05/21/17 10/07/20 History Zonisamide [Zonegran] 200 mg PO HS PRN 10/15/17 10/07/20 History Potassium Chloride [Klor-Con 20] 20 meq PO BID PRN 09/30/18 10/07/20 History Dextroamphetamine/Amphetamine 30 mg PO BID 11/13/18 10/07/20 History [Adderall] DULoxetine HCL [Cymbalta] 60 mg PO BID 04/01/19 10/07/20 History Morphine Sulfate ER [Ms Contin] 30 mg PO BID 04/01/19 10/07/20 History Levothyroxine Sodium 125 mcg PO DAILY 12/03/19 10/07/20 History Meclizine HCl 12.5 mg PO BID PRN 12/03/19 10/07/20 History Omeprazole 40 mg PO DAILY 12/03/19 10/07/20 History Ondansetron HCl [Zofran] 4 mg PO DAILY PRN 12/03/19 10/07/20 History Rizatriptan Benzoate [Maxalt] 10 mg PO DAILY PRN 12/03/19 10/07/20 History traZODone HCL 100 mg PO HS PRN 12/03/19 10/07/20 History Apixaban [Eliquis] 5 mg PO BID 12/17/19 10/07/20 History Furosemide [Lasix] 20 mg PO BID PRN 12/17/19 10/07/20 History Ergocalciferol [Vitamin D2] 50,000 unit PO TH 02/24/20 10/07/20 History Loratadine 10 mg PO DAILY 02/24/20 10/07/20 History diphenhydrAMINE [Benadryl] 50 mg PO BID 02/24/20 10/07/20 History Celecoxib [CeleBREX] 200 mg PO DAILY 10/07/20 10/07/20 History Hydrocortisone [Cortef] 10 mg PO BID 10/07/20 10/07/20 History Morphine Sulfate ER [Ms Contin] 15 mg PO BID 10/07/20 10/07/20 History oxyCODONE HCL/ACETAMINOPHEN 1 tab PO QID 10/07/20 10/07/20 History [Percocet 10-325 mg] risperiDONE [RisperDAL] 1 mg PO HS 10/07/20 10/07/20 History tiZANidine HCL 6 mg PO TID 10/07/20 10/07/20 History Allergies Allergy/AdvReac Type Severity Reaction Status Date / Time doxycycline Allergy Rash/Hives Verified 10/07/20 11:04 glatiramer (copolymer 1) Allergy Rapid Verified 10/07/20 11:04 [From Copaxone] Heart Rate,hives, skin flushing sulfamethoxazole Allergy blisters Verified 10/07/20 11:04 [From Bactrim] in mouth trimethoprim [From Bactrim] Allergy blisters Verified 10/07/20 11:04 in mouth steroids AdvReac genital Uncoded 10/07/20 09:12 burning & rashes but still takes steroids. Physical Examination - Vital Signs Vital Signs: Vital Signs Temp Pulse Pulse Resp BP BP Pulse Ox 10/08/20 01:52 97.7 F 75 17 112/53 98 10/07/20 20:00 98.4 F 66 17 132/82 98 10/07/20 17:07 98.3 F 83 18 132/79 95 10/07/20 12:30 76 18 100/73 95 Intake and Output 10/07/20 10/08/20 10/08/20 22:59 06:59 14:59 Intake Total 300 1200 Balance 300 1200 Intake: Intake, IV Titration 1200 Amount Sodium Chloride 0.9% 1, 1200 000 ml @ 100 mls/hr IV . Q10H PENDING [facility] TO [facility] Rx#:[id number] Oral 300 Other: Voiding Method Toilet Toilet # Voids 1 3 # Bowel Movements 1 Weight 108.862 kg On examination patient is a middle aged female, in no acute distress. She is alert and awake fully oriented to time place and person. Speech and language functions are normal. Attention, concentration and fund of knowledge is adequate. On cranial nerve examination pupils are round and reactive to light, visual washburn are full on confrontation, extraocular muscles are intact with no nystagmus. Face is symmetric, tongue protrudes to the midline. Palatal elevation sensation normal, hearing and shoulder shrug normal. On muscle strength testing there is no pronator drift. The strength patient has some giveaway weakness. Deltoid biceps and triceps are 5 to 5-. Mill Tender Washing 5-/5, in the lower limbs hip flexion is 4 to 4- bilaterally. Ankle dorsiflexion initially appeared 4+, but after was spent, went up to 5 bilaterally. Reflexes are 1+ to 2 in the upper limbs, 1+ at the knees, absent ankles and plantars are flat. Sensory touch is equal. No ataxia for [id number] testing, tone and bulk of muscles normal. Gait deferred. On general examination there is no carotid bruit or murmur, peripheral pulses present, abdomen soft nontender. Peripheral pulses present. No edema. Results - Laboratory Findings CBC and BMP: 10/08/20 06:15 10/08/20 06:15 Abnormal Lab Findings: Abnormal Labs 10/07/20 10/07/20 09:44 12:03 WBC 13.0 H MCV 77.9 L RDW 16.2 H Neutrophils # 10.0 H Sodium 135 L Glucose 144 H C-Reactive Protein 43.9 H Assessment and Plan Assessment: * 50-year-old female, with history of multiple sclerosis, admitted for cephalalgia, some concentration issues and confusion since discharge from [facility] on 09/17/2020. She states she was admitted at that time for "sepsis". Patient's mental confusion appears to be due to polypharmacy, but patient completed declines, stating that she has been taking all these pain medications for 10 years. She believes her mental confusion, headache is related to the sepsis she had in August 2020. Examination is relatively nonfocal. * Multiple sclerosis * History of lumbar spinal surgery in December 2019, with multiple * Presence of InterStim * Tobacco use Plan: * Patient will undergo MRI of the brain with and without contrast to rule out secondary causes of headache. * It appears patient is on numerous psychoactive and pain medication, which probably is the cause of her mental confusion, delirium and hallucinations. Patient states that she has been on these medications for 10 years and is not a cause. Suggest review all her medications and try to eliminate some if possible. * Dr. Cerna will cover neurology service over the weekend.
[2020-10-08] MEDS: LORazepam 1 MG TAB PO SCH (22:10)
[2020-10-08] MEDS: risperiDONE 1 MG TAB PO SCH (22:12)
--- NOTE | 2020-10-08 22:12 | P.HPIM ---
History of Present Illness H&P Date: 10/08/20 Chief Complaint: headache, confusion, weakness Karlos Rojo is a 50 yo F with hx MS, chronic back pain, hx lumbar surgery, interstim in place, recent admission in August for dental abscess who presented to the ED with continued weakness, somnolence and confusion. She states that after she was discharged about 3 weeks ago on Augmentin she has not returned to her baseline, pt has continued to feel very tired and has noticed jumbling her words, increased low back pain and then a few days ago she had a hallucination. She states she was in bed and felt she could see a man staring at her. She also feels her low back has been more swollen and painful ever since she had surgery in December of last year. She continues on oxycodone, MS contin and ativan per her Neurologist. On presentation, T 99.2, BP 90/60, WBC 13k, CRP 44, procalcitonin 0.06. CT head/cervical spine and CT abd/pelvis both without acute process. Review of Systems All systems: negative Constitutional: Reports malaise, Reports weakness, Denies chills, Denies fever Eyes: denies blurred vision, denies pain Ears, nose, mouth and throat: Denies headache, Denies sore throat Cardiovascular: Denies chest pain, Denies shortness of breath Respiratory: Denies cough Gastrointestinal: Reports abdominal pain, Denies diarrhea, Denies nausea, Denies vomiting Genitourinary: Reports vaginal dryness, Denies dysuria, Denies hematuria Musculoskeletal: Denies myalgias Integumentary: Denies pruritus, Denies rash Neurological: Reports as per HPI, Reports balance difficulties, Reports headaches, Reports migraines, Reports weakness, Denies numbness Psychiatric: Reports hallucinations, Denies anxiety, Denies depression Endocrine: Denies fatigue, Denies weight change Past Medical History Past Medical History: Asthma, Blood Disorder, Heart Failure, COPD, Deep Vein Thrombosis (DVT), Eye Disorder, Fibromyalgia, Hearing Disorder / Deafness, Hyperlipidemia, Memory Impairment, Musculoskeletal Disorder, Neurologic Disorder, Osteoarthritis (OA), Pneumonia, Skin Disorder, Sleep Apnea/CPAP/BIPAP, Syncope, Thyroid Disorder Additional Past Medical History / Comment(s): Multiple sclerosis, bronchitis, factor 5 leiden, RUBI-does not wear device, DVT L leg 2013, hiatal hernia, hoarseness/leucoplasia, adrenal insufficiency/chronic steroid use, migraines, DJD, chronic back pain, bursitis, optic neuritis bilaterally, glaucoma , tinnitis, UTI, rosacia, sinus problems, insomnia, hypersomnia. carpal tunel, vertigo.,hypoxia, states infection, at back surgery site- with visiting nurse and is receiving IV antibiotic through PICC line . History of Any Multi-Drug Resistant Organisms: None Reported Date of last positivie culture/infection: 2013 MDRO Source:: stomach Past Surgical History: Back Surgery, Bladder Surgery, Section, Cholecystectomy, Tubal Ligation Additional Past Surgical History / Comment(s): 09-24-18 bladder stimulator, 02/05/19 microlarygoscopy/bx, vocal cord polypectomies, cervical bx, bladder suspension, EGD with bx, colonoscopy,. Laminectomy with decompression (), Drainage of seroma back (02/02/20).,. PICC line . Past Anesthesia/Blood Transfusion Reactions: Motion Sickness Additional Past Anesthesia/Blood Transfusion Reaction / Comment(s): occasional bad headaches. Past Psychological History: ADD/ADHD, Anxiety, Depression Additional Psychological History / Comment(s): . Smoking Status: Current every day smoker Past Alcohol Use History: Occasional Additional Past Alcohol Use History / Comment(s): 1 ppd smoker since 1981---has cut back and is attempting to use nicotine patch Past Drug Use History: Marijuana Additional Drug Use History / Comment(s): occ marijuana use- - Past Family History Brother(s) Family Medical History: Deep Vein Thrombosis (DVT) Father Family Medical History: Deep Vein Thrombosis (DVT) Additional Family Medical History / Comment(s): Patient states that her father has no cardiac history but his father had previous RI's. Mother Family Medical History: Cancer, Deep Vein Thrombosis (DVT), Pulmonary Embolus Additional Family Medical History / Comment(s): Cervical cancer. Medications and Allergies Home Medications Medication Instructions Recorded Confirmed Type Gabapentin 800 mg PO TID 08/13/16 10/07/20 History LORazepam [Ativan] 2 mg PO HS 05/21/17 10/07/20 History Zonisamide [Zonegran] 200 mg PO HS PRN 10/15/17 10/07/20 History Potassium Chloride [Klor-Con 20] 20 meq PO BID PRN 09/30/18 10/07/20 History Dextroamphetamine/Amphetamine 30 mg PO BID 11/13/18 10/07/20 History [Adderall] DULoxetine HCL [Cymbalta] 60 mg PO BID 04/01/19 10/07/20 History Morphine Sulfate ER [Ms Contin] 30 mg PO BID 04/01/19 10/07/20 History Levothyroxine Sodium 125 mcg PO DAILY 12/03/19 10/07/20 History Meclizine HCl 12.5 mg PO BID PRN 12/03/19 10/07/20 History Omeprazole 40 mg PO DAILY 12/03/19 10/07/20 History Ondansetron HCl [Zofran] 4 mg PO DAILY PRN 12/03/19 10/07/20 History Rizatriptan Benzoate [Maxalt] 10 mg PO DAILY PRN 12/03/19 10/07/20 History traZODone HCL 100 mg PO HS PRN 12/03/19 10/07/20 History Apixaban [Eliquis] 5 mg PO BID 12/17/19 10/07/20 History Furosemide [Lasix] 20 mg PO BID PRN 12/17/19 10/07/20 History Ergocalciferol [Vitamin D2] 50,000 unit PO TH 02/24/20 10/07/20 History Loratadine 10 mg PO DAILY 02/24/20 10/07/20 History diphenhydrAMINE [Benadryl] 50 mg PO BID 02/24/20 10/07/20 History Celecoxib [CeleBREX] 200 mg PO DAILY 10/07/20 10/07/20 History Hydrocortisone [Cortef] 10 mg PO BID 10/07/20 10/07/20 History Morphine Sulfate ER [Ms Contin] 15 mg PO BID 10/07/20 10/07/20 History oxyCODONE HCL/ACETAMINOPHEN 1 tab PO QID 10/07/20 10/07/20 History [Percocet 10-325 mg] risperiDONE [RisperDAL] 1 mg PO HS 10/07/20 10/07/20 History tiZANidine HCL 6 mg PO TID 10/07/20 10/07/20 History Allergies Allergy/AdvReac Type Severity Reaction Status Date / Time doxycycline Allergy Rash/Hives Verified 10/07/20 11:04 glatiramer (copolymer 1) Allergy Rapid Verified 10/07/20 11:04 [From Copaxone] Heart Rate,hives, skin flushing sulfamethoxazole Allergy blisters Verified 10/07/20 11:04 [From Bactrim] in mouth trimethoprim [From Bactrim] Allergy blisters Verified 10/07/20 11:04 in mouth steroids AdvReac genital Uncoded 10/07/20 09:12 burning & rashes but still takes steroids. Physical Exam Vitals: Vital Signs Temp Pulse Resp BP Pulse Ox 10/08/20 19:29 98.4 F 96 17 115/76 98 10/08/20 15:00 98.4 F 91 18 114/74 94 L 10/08/20 08:04 98.3 F 80 20 116/78 94 L 10/08/20 01:52 97.7 F 75 17 112/53 98 Intake and Output 10/08/20 10/08/20 10/08/20 06:59 14:59 22:59 Intake Total 1200 600 Balance 1200 600 Intake: Intake, IV Titration 1200 Amount Sodium Chloride 0.9% 1, 1200 000 ml @ 100 mls/hr IV . Q10H [facility] Rx#:[id number] Oral 600 Other: Voiding Method Toilet Toilet # Voids 3 General: well nourished, well developed, obese, NAD. Vitals reviewed Eyes: PERRL, EOMI, conjunctiva normal HENT: normocephalic, mucus membranes moist Neck: supple, no JVD Lungs: normal respiratory effort, no wheezes or rales CV: Regular rate and rhythm, no murmur. Peripheral pulses 2+ Abdomen: soft, nondistended, no organomegaly. TTP suprapubic Lymph: no cervical or axillary LAD Skin: warm and dry. Neuro: A&Ox3, normal mood and affect Results CBC & Chem 7: 10/08/20 06:15 10/08/20 06:15 Labs: Abnormal Lab Results - Last 24 Hours (Table) 10/08/20 10/08/20 Range/Units 06:15 06:15 WBC 10.18 H (4.50-10.00) X 10*3/uL Hgb 11.9 L (12.0-15.0) g/dL MCH 24.6 L (27.0-32.0) pg MCHC 29.9 L (32.0-37.0) g/dL RDW 16.7 H (11.5-14.5) % MPV 9.4 L (9.5-12.2) fL Immature Gran # 0.05 H (0.00-0.04) X 10*3/uL ESR 23 H (0-20) mm/Hr Glucose 123 H (70-110) mg/dL Calcium 8.4 L (8.7-10.3) mg/dL C-Reactive Protein 3.6 H (0.0-0.8) mg/dL Thrombosis Risk Factor Assmnt - Choose All That Apply Any of the Below Risk Factors Present?: Yes Each Factor Represents 1 point: Age 41-60 years, Obesity (BMI >25) Each Risk Factor Represents 3 Points: History of DVT/PE Thrombosis Risk Factor Assessment Total Risk Factor Score: 5 Thrombosis Risk Factor Assessment Level: High Risk Assessment and Plan (1) Multiple sclerosis Current Visit: Yes Status: Acute Code(s): G35 - MULTIPLE SCLEROSIS SNOMED Code(s): 13229321 (2) Polypharmacy Current Visit: Yes Status: Acute Code(s): Z79.899 - OTHER HALFWAY (CURRENT) DRUG THERAPY SNOMED Code(s): 256562929 (3) Chronic low back pain Current Visit: Yes Status: Acute Code(s): M54.5 - LOW BACK PAIN; G89.29 - OTHER CHRONIC PAIN SNOMED Code(s): 495744799 (4) Headache Current Visit: Yes Status: Acute Code(s): R51.9 - HEADACHE, UNSPECIFIED SNOMED Code(s): 09696705 (5) Adrenal mass Current Visit: No Status: Acute Code(s): E27.8 - OTHER SPECIFIED DISORDERS OF ADRENAL GLAND SNOMED Code(s): 268199451 (6) Lower extremity weakness Current Visit: No Status: Acute Code(s): R29.898 - OTH SYMPTOMS AND SIGNS INVOLVING THE MUSCULOSKELETAL SYSTEM SNOMED Code(s): 028028066 (7) Lumbar degenerative disc disease Current Visit: No Status: Acute Code(s): M51.36 - OTHER INTERVERTEBRAL DISC DEGENERATION, LUMBAR REGION SNOMED Code(s): 48390220 (8) Lumbar facet arthropathy Current Visit: No Status: Acute Code(s): M47.816 - SPONDYLOSIS W/O MYELOP ATHY OR RADICULOPATHY, LUMBAR REGION SNOMED Code(s): 449908617 (9) Lumbosacral pain Current Visit: No Status: Acute Code(s): M54.5 - LOW BACK PAIN SNOMED Code(s): 206574559 Plan: 1. Weakness, fatigue, somnolence and confusion. History MS. Consider MS flare vs interaction of her prescribed narcotics, muscle relaxants and benzodiazepine. Pt notes she has been on these meds for years and is resistant to the idea it is contributing. Neurology consult. Continue home medications 2. Hx recent dental infection, leukocytosis. ID consult eval for ongoing infection. Follow cultures 3. Chronic low back pain. Continue home pain meds while inpatient 4. Anxiety. Hallucinations. Continue seroquel 25 mg bid DVT prophylaxis: john
[2020-10-09] MEDS: SODIUM CHLORIDE 0.9% 1,000 ML IV SCH ×2 (05:12→22:26)
[2020-10-09] MEDS: LEVOTHYROXINE 50 MCG TAB PO SCH (06:19)
[2020-10-09] MEDS: PANTOPRAZOLE 40 MG TABLET PO SCH (07:20)
[2020-10-09] MEDS: GABAPENTIN 400 MG CAP PO SCH ×3 (08:33→22:28)
[2020-10-09] MEDS: HYDROCORTISONE 10 MG TAB PO SCH ×2 (08:33→22:28)
[2020-10-09] MEDS: tiZANidine 4 MG TAB PO SCH ×3 (08:34→22:28)
[2020-10-09] MEDS: NICOTINE 14MG/24HR PATCH TRANSDERM SCH (08:34)
[2020-10-09] MEDS: APIXABAN 5 MG TAB PO SCH ×2 (08:34→22:30)
[2020-10-09] MEDS: LORATADINE 10 MG TAB PO SCH (08:34)
[2020-10-09] MEDS: MELOXICAM 7.5 MG TAB PO SCH (08:35)
[2020-10-09] MEDS: QUEtiapine 25 MG TAB PO SCH ×2 (08:35→22:31)
[2020-10-09] MEDS: MORPHINE SULFATE ER 30 MG TABLET PO SCH (08:36)
[2020-10-09] MEDS: MORPHINE SULFATE ER 15 MG TABLET PO SCH ×2 (08:37→22:29)
[2020-10-09] MEDS: DULoxetine HCL 60 MG CAPSULE.DR PO SCH ×2 (08:38→22:30)
[2020-10-09] MEDS: oxyCODONE-APAP 10-325MG 1 EACH TAB PO SCH ×4 (08:38→22:30)
[2020-10-09] MEDS: diphenhydrAMINE 25 MG CAP PO PRN (08:43)
[2020-10-09] MEDS: METOCLOPRAMIDE 5 MG/ML 2 ML VIAL IVP PRN ×2 (12:49→22:26)
[2020-10-09] MEDS: ZONISAMIDE 100 MG CAP PO PRN (13:13)
[2020-10-09] MEDS ORDERED: MECLIZINE 12.5 MG TAB PO PRN (14:16)
--- NOTE | 2020-10-09 16:53 | PN ---
PROGRESS NOTE DATE OF SERVICE: 10/09/2020 I am covering for Dr. Palomino INTERVAL HISTORY: This is a 50-year-old woman who was admitted with a headache, confusion, weakness, is being closely monitored at this time. The neurologist recommended MRI which could not be done because of bladder stimulator. The patient also had some rash on the face. The patient is being closely monitored at this time. The basic labs reviewed showed elevated WBC and has some mild hyponatremia. COVID-19 is negative. PAST MEDICAL HISTORY: Reviewed. REVIEW OF SYSTEMS: CARDIOVASCULAR: No angina. RESPIRATORY: As mentioned earlier. GI: As mentioned earlier. : As mentioned earlier. CURRENT MEDICATIONS: Reviewed and include Eliquis, Benadryl, Cymbalta, Lasix, Neurontin, Cortef, Claritin, Ativan, Mobic. Doses are reviewed. MS Contin doses reviewed. PHYSICAL EXAM: GENERAL: Patient is alert, oriented x3. VITAL SIGNS: Pulse 64, blood pressure 118/82, respirations 16, temperature 98 degrees, pulse ox 93% on room air. HEENT: Conjunctivae normal. Oral mucosa moist. Malar rash present. NECK: No jugular venous distention. No carotid bruits. No lymph node enlargement. RESPIRATORY: Breath sounds diminished at the bases. No rhonchi, no crackles. HEART: S1 and S2, muffled. ABDOMEN: Soft, no tenderness. Obese. EXTREMITIES: No edema, no swelling. NERVOUS: No focal deficits. LABS: WBC 10.8, hemoglobin 11.9. ASSESSMENT: 1. Headache, weakness and confusion for evaluation, rule out multiple sclerosis acute exacerbation. 2. Polypharmacy. 3. Chronic low back pain. 4. Headaches. 5. Adrenal mass. 6. Left lower extremity weakness. 7. Lumbar degenerative joint disease. 8. Lumbosacral pain. 9. Mild hyponatremia. 10.Increased WBC. 11.History of asthma. 12.History of deep venous thrombosis. 13.History of sleep apnea. 14.Obesity with body mass index of 38.7. RECOMMENDATIONS AND DISCUSSION: In this 50-year-old woman who presented with multiple complex medical issues, we will monitor the patient closely. Continue the current medications. Abdomen and pelvis CAT scan was done which showed nonspecific mass in the left upper quadrant associated with adrenal gland. We will continue to monitor. We will order some more blood work. ESR is 23 and CRP is 3.6. Blood work for the evaluation for the possible rash. The prognosis is guarded because of multiple complex medical conditions. Further recommendations to follow. Symptomatic treatment will be provided. MMODL / IJN: [id number] /
[2020-10-09] MEDS: diphenhydrAMINE 25 MG CAP PO SCH (22:28)
[2020-10-09] MEDS: risperiDONE 1 MG TAB PO SCH (22:29)
[2020-10-09] MEDS: LORazepam 1 MG TAB PO SCH (22:30)
--- NOTE | 2020-10-10 00:07 | PN ---
PROGRESS NOTE DATE OF SERVICE: 10/09/2019 REASON FOR FOLLOWUP: MRSA infection and leukocytosis. INTERVAL HISTORY: The patient is currently afebrile. She has been complaining of headache and not feeling well. No nausea, vomiting. No chest pain, shortness of breath or cough. No abdominal pain. No diarrhea. PHYSICAL EXAMINATION: Blood pressure 119/80 with a pulse of 95, temperature 98.7. She is 95% on room air. General description: The patient is a middle-aged female lying in bed in no distress. Respiratory system: Unlabored breathing. Clear to auscultation anteriorly. HEART: S1, S2. Regular rate and rhythm. Abdomen soft. No tenderness. LABS: Blood cultures have been negative. White count normalized. DIAGNOSTIC IMPRESSION AND PLAN: Patient admitted to the hospital with concern for possible in this patient with a fever reported in the outpatient setting. No fever has been recorded during this admission. White count has normalized. So far workup including CT abdomen and pelvis has been negative. The patient has been complaining of headache with a history of pituitary tumor, did have evidence of adrenal enlargement. She needs MRI which cannot be done because of ureteral stents. The patient mentioned possible transferred to her neurologist in [place] for removal of the stent. Subsequent MRI to further determine etiology of her headache as no fever or elevated white count. We will monitor patient closely for antibiotic therapy. MMODL / IJN: [id number] /
[2020-10-10] MEDS: MORPHINE SULFATE ER 30 MG TABLET PO SCH ×3 (03:55→20:39)
[2020-10-10] MEDS: SODIUM CHLORIDE 0.9% 1,000 ML IV SCH ×3 (04:26→18:01)
[2020-10-10] MEDS: LEVOTHYROXINE 50 MCG TAB PO SCH (05:50)
[2020-10-10] MEDS: PANTOPRAZOLE 40 MG TABLET PO SCH (07:58)
[2020-10-10] MEDS: QUEtiapine 25 MG TAB PO SCH ×2 (08:36→20:39)
[2020-10-10] MEDS: MELOXICAM 7.5 MG TAB PO SCH (08:36)
[2020-10-10] MEDS: MORPHINE SULFATE ER 15 MG TABLET PO SCH ×2 (08:37→20:37)
[2020-10-10] MEDS: oxyCODONE-APAP 10-325MG 1 EACH TAB PO SCH ×4 (08:38→20:36)
[2020-10-10] MEDS: GABAPENTIN 400 MG CAP PO SCH ×3 (08:38→20:36)
[2020-10-10] MEDS: LORATADINE 10 MG TAB PO SCH (08:39)
[2020-10-10] MEDS: NICOTINE 14MG/24HR PATCH TRANSDERM SCH (08:39)
[2020-10-10] MEDS: DULoxetine HCL 60 MG CAPSULE.DR PO SCH ×2 (08:39→20:37)
[2020-10-10] MEDS: APIXABAN 5 MG TAB PO SCH ×2 (08:39→20:36)
[2020-10-10] MEDS: polyethylene glycoL 3350 17 GM POWD.PACK PO SCH (08:41)
[2020-10-10] MEDS: HYDROCORTISONE 10 MG TAB PO SCH ×2 (08:42→20:42)
[2020-10-10] MEDS: tiZANidine 4 MG TAB PO SCH ×3 (08:42→20:42)
[2020-10-10] MEDS: METOCLOPRAMIDE 5 MG/ML 2 ML VIAL IVP PRN ×2 (10:11→16:56)
[2020-10-10] MEDS: diphenhydrAMINE 25 MG CAP PO SCH ×2 (10:11→20:38)
[2020-10-10 11:50] LABS: African American GFR (CKD) 117.1 (60.0-200.0); Anion Gap 4.6 mmol/L (4.00-12.00); BUN/Creat Ratio 18.57 Ratio (12.00-20.00); Carbon Dioxide 29.4 mmol/L (21.6-31.8); Potassium 4.4 mmol/L (3.5-5.5)
[2020-10-10 11:55] LABS: Basophils # (A) 0.04 X 10*3/uL (0.00-0.10); Basophils % (A) 0.3 %; Eosinophils # (A) 0.34 X 10*3/uL (0.04-0.35); Eosinophils % (A) 2.9 %; HCT 40.6 % (37.2-46.3); HGB 12.4 g/dL (12.0-15.0); Lymphocytes # (A) 2.28 X 10*3/uL (0.90-5.00); Lymphocytes % (A) 19.1 %; MCH 24.7 pg (27.0-32.0); MCHC 30.5 g/dL (32.0-37.0); MCV 80.7 fL (80.0-97.0); Mean Platelet Volume 9.6 fL (9.5-12.2); Monocytes # (A) 0.77 X 10*3/uL (0.20-1.00); Monocytes % (A) 6.5 %; Neutrophils # (A) 8.42 X 10*3/uL (1.80-7.70); Neutrophils % (A) 70.7 %; Platelet Count 264 X 10*3/uL (140-440); RBC 5.03 X 10*6/uL (4.10-5.20); RDW 16.3 % (11.5-14.5); WBC 11.91 X 10*3/uL (4.50-10.00)
[2020-10-10] MEDS ORDERED: Acetaminophen-Codeine 300-30mg TAB PO PRN (13:00)
[2020-10-10] MEDS: SUMAtriptan succinate 50 MG TAB PO PRN (15:26)
[2020-10-10] MEDS: ONDANSETRON 4 MG TAB PO PRN (16:56)
--- NOTE | 2020-10-10 17:51 | P.PN ---
Subjective Progress Note Date: 10/10/20 The patient is a 50-year-old female who is seen in neurologic follow-up on October 10, 2020 via teleneurology. The patient reports continuing to have a severe headache. She has associated nausea, photophobia and blurred vision. The patient denies vomiting and phonophobia. Patient reports neck stiffness, swollen joints and neck pain as well. MRI of the brain has not been done because the patient has a bladder stimulator which is not MRI compatible. Apparently the plan is to have the patient transf erred to the hospital where her surgeon, who placed the stimulator practices, so the stimulator can be removed and an MRI done. Objective - Vital Signs Vital signs: Vital Signs Temp 98.9 F 10/10/20 14:30 Pulse 91 10/10/20 14:30 Resp 16 10/10/20 14:30 BP 114/68 10/10/20 14:30 Pulse Ox 97 10/10/20 14:30 Intake & Output 10/09/20 10/10/20 10/10/20 18:59 06:59 18:59 Intake Total 650 1740 800 Balance 650 1740 800 Intake: IV 800 Sodium Chloride 0.9% 1, 800 000 ml @ 100 mls/hr IV . Q10H ULYSSES Rx#:[id number] Intake, IV Titration 1200 Amount Sodium Chloride 0.9% 1, 1200 000 ml @ 100 mls/hr IV . Q10H ULYSSES Rx#:[id number] Oral 650 540 Other: Voiding Method Toilet Toilet Toilet # Voids 2 2 # Bowel Movements 1 - Exam Gen.: The patient is reclining in the bed. She is in no acute distress. She is observed moving her head and neck without difficulty. HEENT: Head is atraumatic, normocephalic. Fundus not visualized. There is no scleral icterus. Mucous membranes are moist. Neurological examination Mental status: The patient is awake, alert and oriented 3. Her speech is fluent. Cranial nerves: 2-12 grossly intact - Labs CBC & Chem 7: 10/10/20 06:30 10/10/20 06:30 Labs: Abnormal Lab Results - Last 24 Hours (Table) 10/10/20 10/10/20 Range/Units 06:30 06:30 WBC 11.91 H (4.50-10.00) X 10*3/uL MCH 24.7 L (27.0-32.0) pg MCHC 30.5 L (32.0-37.0) g/dL RDW 16.3 H (11.5-14.5) % Immature Gran # 0.06 H (0.00-0.04) X 10*3/uL Neutrophils # 8.42 H (1.80-7.70) X 10*3/uL Glucose 113 H (70-110) mg/dL Microbiology - Last 24 Hours (Table) 10/08/20 06:15 Blood Culture - Preliminary Blood No Growth after 48 hours 10/08/20 06:29 Blood Culture - Preliminary Blood No Growth after 48 hours Assessment and Plan Assessment: 1. Cephalgia 2. Multiple sclerosis-stable 3. Reported history of migraine headaches Plan: 1. The patient is neurologically stable for transfer Time with Patient: Less than 30 (spent 15 minutes with patient via teleneurology)
--- NOTE | 2020-10-10 17:58 | PN ---
PROGRESS NOTE DATE OF SERVICE: 10/10/2020 I am covering for Dr. Palomino. This 50-year-old woman who was admitted with headache and weakness also being evaluated for multiple sclerosis acute exacerbation. The patient could not have an MRI because the patient's bladder stimulator. The patient has contacted the physician who inserted the bladder stimulator and the patient recommended take an appointment with him and change the bladder stimulator to an MRI tolerating version, an updated version after which the patient could have an MRI. Otherwise, the abdomen and pelvis CAT scan was done previously showed enlarging nonspecific mass in the left upper quadrant, possibly associated with adrenal gland. Dr. Reich is also following the patient closely. I also ordered a ESR which was found to be 23 and CRP was 3.7. Rheumatoid factor was 6. The patient being closely monitored. No chest pain. No palpitations. PAST MEDICAL HISTORY: Reviewed. REVIEW OF SYMPTOMS: CARDIOVASCULAR: No angina. RESPIRATORY: As mentioned earlier. GI: As mentioned earlier. as mentioned earlier. NERVOUS SYSTEM: No numbness. No weakness. CURRENT MEDICATIONS: Reviewed and include: Tylenol #3, Eliquis. Benadryl, Cymbalta, Lasix. Claritin. Ativan. Zofran. PHYSICAL EXAMINATION: Alert and oriented times three. Pulse 91, blood pressure 140/60, respirations 16, temperature 98.9, pulse ox 97% on room air. HEENT: Conjunctivae normal. NECK: No JVD. CARDIOVASCULAR: S1, S2. RESPIRATORY SYSTEM: Breath sounds diminished at the bases. No rhonchi. No crackles. ABDOMEN: Soft, nontender. LEGS are no edema. No swelling. NERVOUS SYSTEM: No focal deficits. LABS: WBC 11.9, hemoglobin 12.4. Sodium 140, potassium 4.4. ASSESSMENT: 1. Headache and weakness and confusion for evaluation, rule out multiple sclerosis acute exacerbation. 2. Polypharmacy. 3. Enlarging nonspecific mass left upper quadrant associated with adrenal gland possibly. 4. Chronic low back pain. 5. Headaches. 6. Left lower extremity weakness. 7. Lumbar degenerative joint disease. 8. Lumbosacral pain. 9. History of bladder stimulator. 10.Mild hyponatremia. 11.Increased WBC. 12.History of asthma. 13.History of deep vein thrombosis. 14.History of sleep apnea. 15.Obesity with body mass index of 38.7. 16.FULL CODE. RECOMMENDATIONS AND DISCUSSION: In this 50-year-old woman who presented with multiple complex medical issues, continue with current medications, symptomatic treatment. Otherwise, the patient is off any antibiotic at this time. Cultures are negative so far. Otherwise, as mentioned earlier, I would recommend the patient follow up with the patient's own urologist and change the bladder stimulator. Otherwise continue rest of medication. Dr. Palomino will follow tomorrow. MMMADELEINEL / IJN: [id number] /
[2020-10-10] MEDS: LORazepam 1 MG TAB PO SCH (20:39)
[2020-10-10] MEDS: ZONISAMIDE 100 MG CAP PO PRN (20:41)
[2020-10-10] MEDS: risperiDONE 1 MG TAB PO SCH (20:43)
--- NOTE | 2020-10-10 23:16 | PN ---
PROGRESS NOTE DATE OF SERVICE: 10/10/2020. REASON FOR FOLLOWUP: Infection. INTERVAL HISTORY: The patient is currently afebrile. The patient is breathing comfortably. Still complaining of headache. No chest pain, shortness of breath or cough. No abdominal pain. No diarrhea. No urinary symptoms. PHYSICAL EXAMINATION: Blood pressure 114/66, pulse of 90, temperature 98.9. She is 97% on room air. General description is a middle-aged female lying in bed in no distress. Respiratory system: Unlabored breathing, clear to auscultation. HEART: S1, S2. Regular rate and rhythm. ABDOMEN: Soft, no tenderness. LABS: Hemoglobin 12.4, white count 11.1. BUN of 13, creatinine 0.7. Urine is negative. Blood culture negative. DIAGNOSTIC IMPRESSION AND PLAN: Patient with subjective fever in this patient with no fever recorded on this admission, mildly elevated white count, more likely steroid related, and the patient does not have any obvious source of infection. Did have a CT of abdomen and pelvis that was negative as well as CT cervical spine. No need for antibiotic therapy. Possible MRI of the brain in view of the persistent headache per Neurology. Continue supportive care. MMODL / IJN: [id number] /
[2020-10-11] MEDS: LEVOTHYROXINE 50 MCG TAB PO SCH (05:45)
[2020-10-11 09:09] VITALS: RESP 16
[2020-10-11 09:33] LABS: Basophils # (A) 0.06 X 10*3/uL (0.00-0.10); Basophils % (A) 0.5 %; Eosinophils # (A) 0.28 X 10*3/uL (0.04-0.35); Eosinophils % (A) 2.5 %; HCT 38.8 % (37.2-46.3); HGB 11.9 g/dL (12.0-15.0); Lymphocytes # (A) 2.12 X 10*3/uL (0.90-5.00); MCH 24.9 pg (27.0-32.0); MCHC 30.7 g/dL (32.0-37.0); MCV 81.2 fL (80.0-97.0); Mean Platelet Volume 9.7 fL (9.5-12.2); Monocytes # (A) 0.75 X 10*3/uL (0.20-1.00); Monocytes % (A) 6.7 %; Neutrophils # (A) 7.91 X 10*3/uL (1.80-7.70); Neutrophils % (A) 70.8 %; Platelet Count 245 X 10*3/uL (140-440); RBC 4.78 X 10*6/uL (4.10-5.20); RDW 16.3 % (11.5-14.5); WBC 11.18 X 10*3/uL (4.50-10.00)
[2020-10-11 09:52] LABS: African American GFR (CKD) 117.1 (60.0-200.0); Anion Gap 3.7 mmol/L (4.00-12.00); BUN/Creat Ratio 14.29 Ratio (12.00-20.00); Calcium 8.6 mg/dL (8.7-10.3); Carbon Dioxide 29.3 mmol/L (21.6-31.8); Potassium 4.3 mmol/L (3.5-5.5)
--- NOTE | 2020-10-11 10:32 | P.DS ---
Providers Date of admission: 10/07/20 13:00 Expected date of discharge: 10/11/20 Attending physician: Richy Palomino MD Consults: 10/07/20 13:03 Consult Physician Urgent Consulting Provider: Lourdes Abbott Consult Reason/Comments: acute/chronic cephalgia, neck pain, hx lumbar infection Do you want consulting provider notified?: Yes 10/07/20 13:15 Consult Physician Urgent Consulting Provider: Devante Reich Consult Reason/Comments: acute cephalgia, subjective pyrexia, reccurent lumbar infections Do you want consulting provider notified?: Yes Primary care physician: Richy Palomino MD Hospital Course: Final Diagnoses: (1) Multiple sclerosis with worsening weakness, fatigue, somnolence, confusion- acute metabolic encephalopathy Current Visit: Yes Status: Acute Code(s): G35 - MULTIPLE SCLEROSIS SNOMED Code(s): 27305158 (2) Polypharmacy with possibly associated acute metabolic encephalopathy Current Visit: Yes Status: Acute Code(s): Z79.899 - OTHER ADJUNCT MATHEMATICS INSTRUCTOR (CURRENT) DRUG THERAPY SNOMED Code(s): 934051562 (3) Chronic low back pain in a patient with history of lumbar spinal surgery in December 2019 Current Visit: Yes Status: Acute Code(s): M54.5 - LOW BACK PAIN; G89.29 - OTHER CHRONIC PAIN SNOMED Code(s): 596933321 (4) Headache in a patient with history of migraines Current Visit: Yes Status: Acute Code(s): R51.9 - HEADACHE, UNSPECIFIED SNOMED Code(s): 65646200 (5) Adrenal mass Current Visit: No Status: Acute Code(s): E27.8 - OTHER SPECIFIED DISORDERS OF ADRENAL GLAND SNOMED Code(s): 872113814 (6) Lower extremity weakness Current Visit: No Status: Acute Code(s): R29.898 - OTH SYMPTOMS AND SIGNS INVOLVING THE MUSCULOSKELETAL SYSTEM SNOMED Code(s): 526447102 (7) Lumbar degenerative disc disease Current Visit: No Status: Acute Code(s): M51.36 - OTHER INTERVERTEBRAL DISC DEGENERATION, LUMBAR REGION SNOMED Code(s): 39781541 (8) Lumbar facet arthropathy Current Visit: No Status: Acute Code(s): M47.816 - SPONDYLOSIS W/O MYELOPATHY OR RADICULOPATHY, LUMBAR REGION SNOMED Code(s): 088868935 (9) Lumbosacral pain Current Visit: No Status: Acute Code(s): M54.5 - LOW BACK PAIN SNOMED Code(s): 970224476 (10) recent dental infection with leukocytosis (11) nicotine dependence Hospital course:Karlos Rojo is a 50 yo F with hx MS, chronic back pain, hx lumbar surgery, interstim in place, recent admission in August for dental abscess who presented to the ED with continued weakness, somnolence and confusion. She states that after she was discharged about 3 weeks ago on Augmentin she has not returned to her baseline, pt has continued to feel very tired and has noticed jumbling her words, increased low back pain and then a few days ago she had a hallucination. She states she was in bed and felt she could see a man staring at her. She also feels her low back has been more swollen and painful ever since she had surgery in December of last year. She continues on oxycodone, MS contin and ativan per her Neurologist. On presentation, T 99.2, BP 90/60, WBC 13k, CRP 44, procalcitonin 0.06. CT head/cervical spine and CT abd/pelvis both without acute process. Evaluated by infectious disease, no antibiotics recommended at this time secondary to no obvious source of infection .Evaluated by neurology and cleared /stable for transfer. MRI of the brain unable to be performed as patient has a bladder stimulator. Patient requires transfer to [facility] WHERE HER BLADDER STIMULATOR WAS PLACED, for removal and then proceed with MRI o f the brain and possibly of the spine. Transfer discussed with patient who is in agreement with. Patient will be admitted to Dr. Soler with Dr. Moore on consult. Patient will be transferred pending authorization today in stable condition with guarded prognosis. The impression and plan of care has been dictated as directed. : I performed a history and examination of this patient, discussed the same with the dictator. I agree with the dictator's note ,documented as a scribe. Any additional findings or plans will be noted. Patient Condition at Discharge: Stable Plan - Discharge Summary Discharge Rx Participant: No New Discharge Prescriptions: New Nicotine 14Mg/24Hr Patch [Habitrol] 1 patch TRANSDERM DAILY patch SUMAtriptan succinate [Imitrex] 100 mg PO DAILY PRN tab PRN Reason: Migraine Headache Meloxicam [Mobic] 7.5 mg PO DAILY tab QUEtiapine [SEROquel] 25 mg PO BID tab Acetaminophen-Codeine 300-30mg [Tylenol w/codeine #3] 1 each PO QID PRN tab PRN Reason: Pain Continue Gabapentin 800 mg PO TID LORazepam [Ativan] 2 mg PO HS Zonisamide [Zonegran] 200 mg PO HS PRN PRN Reason: Migraine Headache Potassium Chloride [Klor-Con 20] 20 meq PO BID PRN PRN Reason: Edema DULoxetine HCL [Cymbalta] 60 mg PO BID Morphine Sulfate ER [Ms Contin] 30 mg PO BID Omeprazole 40 mg PO DAILY Levothyroxine Sodium 125 mcg PO DAILY Meclizine HCl 12.5 mg PO BID PRN PRN Reason: Vertigo Ondansetron HCl [Zofran] 4 mg PO DAILY PRN PRN Reason: nausea/vomiting traZODone HCL 100 mg PO HS PRN PRN Reason: Insomnia Furosemide [Lasix] 20 mg PO BID PRN PRN Reason: Edema Apixaban [Eliquis] 5 mg PO BID diphenhydrAMINE [Benadryl] 50 mg PO BID Ergocalciferol [Vitamin D2 (DRISDOL)] 50,000 unit PO TH Loratadine 10 mg PO DAILY tiZANidine HCL 6 mg PO TID risperiDONE [RisperDAL] 1 mg PO HS Morphine Sulfate ER [Ms Contin] 15 mg PO BID Hydrocortisone [Cortef] 10 mg PO BID oxyCODONE HCL/ACETAMINOPHEN [Percocet 10-325 mg] 1 tab PO QID Discontinued Dextroamphetamine/Amphetamine [Adderall] 30 mg PO BID Rizatriptan Benzoate [Maxalt] 10 mg PO DAILY PRN PRN Reason: Migraine Headache Celecoxib [CeleBREX] 200 mg PO DAILY Discharge Medication List Gabapentin 800 mg PO TID 08/13/16 [History] LORazepam [Ativan] 2 mg PO HS 05/21/17 [History] Zonisamide [Zonegran] 200 mg PO HS PRN 10/15/17 [History] Potassium Chloride [Klor-Con 20] 20 meq PO BID PRN 09/30/18 [History] DULoxetine HCL [Cymbalta] 60 mg PO BID 04/01/19 [History] Morphine Sulfate ER [Ms Contin] 30 mg PO BID 04/01/19 [History] Levothyroxine Sodium 125 mcg PO DAILY 12/03/19 [History] Meclizine HCl 12.5 mg PO BID PRN 12/03/19 [History] Omeprazole 40 mg PO DAILY 12/03/19 [History] Ondansetron HCl [Zofran] 4 mg PO DAILY PRN 12/03/19 [History] traZODone HCL 100 mg PO HS PRN 12/03/19 [History] Apixaban [Eliquis] 5 mg PO BID 12/17/19 [History] Furosemide [Lasix] 20 mg PO BID PRN 12/17/19 [History] Ergocalciferol [Vitamin D2 (DRISDOL)] 50,000 unit PO TH 02/24/20 [History] Loratadine 10 mg PO DAILY 02/24/20 [History] diphenhydrAMINE [Benadryl] 50 mg PO BID 02/24/20 [History] Hydrocortisone [Cortef] 10 mg PO BID 10/07/20 [History] Morphine Sulfate ER [Ms Contin] 15 mg PO BID 10/07/20 [History] oxyCODONE HCL/ACETAMINOPHEN [Percocet 10-325 mg] 1 tab PO QID 10/07/20 [History] risperiDONE [RisperDAL] 1 mg PO HS 10/07/20 [History] tiZANidine HCL 6 mg PO TID 10/07/20 [History] Acetaminophen-Codeine 300-30mg [Tylenol w/codeine #3] 1 each PO QID PRN tab 10/11/20 [Rx] Meloxicam [Mobic] 7.5 mg PO DAILY tab 10/11/20 [Rx] Nicotine 14Mg/24Hr Patch [Habitrol] 1 patch TRANSDERM DAILY patch 10/11/20 [Rx] QUEtiapine [SEROquel] 25 mg PO BID tab 10/11/20 [Rx] SUMAtriptan succinate [Imitrex] 100 mg PO DAILY PRN tab 10/11/20 [Rx] Follow up Appointment(s)/Referral(s): Richy Palmoino MD [Primary Care Provider] - 3 Days Activity/Diet/Wound Care/Special Instructions[facility] Moore on consult.
[2020-10-11] MEDS: GABAPENTIN 400 MG CAP PO SCH ×2 (11:02→16:12)
[2020-10-11] MEDS: MELOXICAM 7.5 MG TAB PO SCH (11:02)
[2020-10-11] MEDS: DULoxetine HCL 60 MG CAPSULE.DR PO SCH (11:02)
[2020-10-11] MEDS: LORATADINE 10 MG TAB PO SCH (11:04)
[2020-10-11] MEDS: diphenhydrAMINE 25 MG CAP PO SCH (11:04)
[2020-10-11] MEDS: ONDANSETRON 4 MG TAB PO PRN (11:05)
[2020-10-11] MEDS: PANTOPRAZOLE 40 MG TABLET PO SCH (11:05)
[2020-10-11] MEDS: QUEtiapine 25 MG TAB PO SCH (11:05)
[2020-10-11] MEDS: APIXABAN 5 MG TAB PO SCH (11:05)
[2020-10-11] MEDS: tiZANidine 4 MG TAB PO SCH ×2 (11:06→16:13)
[2020-10-11] MEDS: HYDROCORTISONE 10 MG TAB PO SCH (11:06)
[2020-10-11] MEDS: oxyCODONE-APAP 10-325MG 1 EACH TAB PO SCH ×2 (11:07→14:13)
[2020-10-11] MEDS: polyethylene glycoL 3350 17 GM POWD.PACK PO SCH (11:07)
[2020-10-11] MEDS: MORPHINE SULFATE ER 15 MG TABLET PO SCH (11:09)
[2020-10-11] MEDS: MORPHINE SULFATE ER 30 MG TABLET PO SCH (11:09)
[2020-10-11] MEDS: NICOTINE 14MG/24HR PATCH TRANSDERM SCH (11:13)
[2020-10-11] MEDS: SODIUM CHLORIDE 0.9% 1,000 ML IV SCH (14:14)
[2020-10-11 15:09] VITALS: BP 94/63; PULSE 81; TEMP 98.7
--- NOTE | 2020-10-11 15:40 | PN ---
PROGRESS NOTE DATE OF SERVICE: 10/11/2020 REASON FOR FOLLOWUP: Leukocytosis and question of infection. INTERVAL HISTORY: The patient is currently afebrile. Still complaining of headache; no worsening, though. No nausea, no vomiting. No chest pain, shortness of breath or cough. No abdominal pain or diarrhea. PHYSICAL EXAMINATION: Blood pressure 144/80 with a pulse of 88, temperature 98.6. She is 98% on room air. General description is a middle-aged female up in the bed in no distress. RESPIRATORY SYSTEM: Unlabored breathing. Clear to auscultation. HEART: S1, S2. Regular rate and rhythm. ABDOMEN: Soft. No tenderness. LABS: Hemoglobin is 11.9, white count 11.18, creatinine 0.7. Procalcitonin was 0.06, CRP only 3.6. Blood culture has been negative. CT of abdomen and pelvis was negative. DIAGNOSTIC IMPRESSION AND PLAN: Patient admitted to hospital with concern for possible in this patient who did have extensive workup. No fever has been recorded. She did have mildly elevated white count, possibly steroid-related. This patient did have enlargement of the adrenal gland with a history of as well as pituitary tumor. She is being transferred to tertiary care for possible removal of her stent and an MRI. She has been maintained off antibiotic therapy. Recommend no antibiotic on discharge. MMODL / IJN: [id number] /
[2020-10-11] MEDS: SUMAtriptan succinate 50 MG TAB PO PRN (16:13)
[2020-10-14] MEDS ORDERED: ERGOCALCIFEROL 1,250 MCG (50,000 IU) CAPSULE PO SCH (09:00)
== END 2020-10-11 17:30 | disposition short-term general hospital (02) | DRG 58 ==
LOC: EC 08:54 → 6NMEDSUR 13:00 → OBSVTOIN 10-11 09:40
PROVIDERS: ADMIT Family Medicine; ATTEND Family Medicine
DX: G35 Multiple sclerosis (principal); G92 Toxic encephalopathy; D68.51 Activated protein C resistance; E87.1 Hypo-osmolality and hyponatremia; M47.16 Other spondylosis with myelopathy, lumbar region; T50.915A Adverse effect of multiple unspecified drugs, medicaments and biological substances, initial encounter; Z86.14 Personal history of Methicillin resistant Staphylococcus aureus infection; Z86.19 Personal history of other infectious and parasitic diseases; Z20.822 Contact with and (suspected) exposure to COVID-19; E27.9 Disorder of adrenal gland, unspecified; E66.9 Obesity, unspecified; E78.5 Hyperlipidemia, unspecified; F17.210 Nicotine dependence, cigarettes, uncomplicated; F32.9 Major depressive disorder, single episode, unspecified; F41.9 Anxiety disorder, unspecified; F90.9 Attention-deficit hyperactivity disorder, unspecified type; G89.29 Other chronic pain; H91.90 Unspecified hearing loss, unspecified ear; I50.9 Heart failure, unspecified; J44.9 Chronic obstructive pulmonary disease, unspecified; M47.816 Spondylosis without myelopathy or radiculopathy, lumbar region; M51.36 Other intervertebral disc degeneration, lumbar region; M54.2 Cervicalgia; M79.7 Fibromyalgia; R32 Unspecified urinary incontinence; Z68.38 Body mass index [BMI] 38.0-38.9, adult; Z79.01 Long term (current) use of anticoagulants; Z79.1 Long term (current) use of non-steroidal anti-inflammatories (NSAID); Z79.52 Long term (current) use of systemic steroids; Z79.890 Hormone replacement therapy; Z79.899 Other long term (current) drug therapy; Z80.49 Family history of malignant neoplasm of other genital organs; Z82.49 Family history of ischemic heart disease and other diseases of the circulatory system; Z86.718 Personal history of other venous thrombosis and embolism; H40.9 Unspecified glaucoma; L71.9 Rosacea, unspecified; Z96.0 Presence of urogenital implants; K44.9 Diaphragmatic hernia without obstruction or gangrene; Z90.49 Acquired absence of other specified parts of digestive tract; Z98.51 Tubal ligation status; Z87.01 Personal history of pneumonia (recurrent); Z87.440 Personal history of urinary (tract) infections; Z83.2 Family history of diseases of the blood and blood-forming organs and certain disorders involving the immune mechanism; Z88.1 Allergy status to other antibiotic agents; Z88.2 Allergy status to sulfonamides; Z88.8 Allergy status to other drugs, medicaments and biological substances
CPT/HCPCS: 36415; 70450; 71046; 72125; 74176; 80048; 80053; 81003; 83605; 83615; 84145; 85025; 85610; 85652; 85730; 86038; 86140; 86431; 87040; 87635; 96361; 96374; 99285

== ENCOUNTER → 2020-11-05 | Outpatient (CLI) | payer MEDICARE, OTHER ==
--- NOTE | 2020-11-08 07:43 | PE ---
EXAMINATION TYPE: PET CT fusion skull to thigh DATE OF EXAM: 11/05/2020 COMPARISON: Prior CT abdomen and pelvis October 08, 2020. Prior PET/CT December 26, 2019. HISTORY: Adrenal mass, abnormal CT. TECHNIQUE: Following the intravenous administration of 10.41 mCi of F-18 FDG, whole body images are performed from the skull base to the midthigh. Images are reviewed on the computer in the coronal, a xial, and sagittal planes. Reconstructed rotating images are created on independent workstation and reviewed on the computer. A localization and attenuation correction CT is performed in conjunction with the PET scan. Blood glucose level equals 112. SCAN: Subsequent Scan FINDINGS: SKULL BASE AND NECK: Subcentimeter hypermetabolic focus posterior left arm muscle axial image 31, ma x SUV 4.25. No definitive CT correlate. Remainder of neck shows no suspicious hypermetabolic uptake. CHEST, MEDIASTINUM, AND HILAR REGION: No abnormal hypermetabolic uptake. ABDOMEN AND PELVIS: Persistent left adrenal mass measures 3.8 x 2.6 cm current study remains ametabol ic. No areas of abnormal hypermetabolic uptake. OSSEOUS STRUCTURES: Asymmetric left facet arthropathy C4 level axial image 41. Mild hypermetabolic up take, max SUV 3.71. Findings favored degenerative given no additional areas of abnormal hypermetaboli c osseous uptake. Mild uptake posterior lower lumbar spine at site of facet arthropathy also present. OTHER CT: Liver is diffusely low-density consistent with diffuse fatty infiltration. Cholecystectomy clips. Spinal stimulator device in the right sacrum. Slight underlying scoliotic curvature. IMPRESSION: Confirmation of slightly enlarging lower left adrenal mass or mass within left adrenal gl and and left kidney. This remains ametabolic however. No areas of suspicious abnormal hypermetabolic uptake to definitively suggest active malignancy.
== END | disposition home or self-care (01) ==
LOC: RADPETMAIN 16:10
PROVIDERS: ATTEND Family Medicine
DX: D44.12 Neoplasm of uncertain behavior of left adrenal gland (principal)
CPT/HCPCS: 78815; A9552

== ENCOUNTER 2021-04-28 09:11 | Day surgery (SDC) | payer MEDICARE, OTHER ==
[2021-04-26 16:39] VITALS: BMI 37.1
[~2021-04-28 09:11] MED LIST changes: -FAMOTIDINE 20 MG/2 ML VIAL IV PRN; +LACTATED RINGERS 1,000 ML IV SCH; +LIDOCAINE 1% (10MG/ML) FOR IV START INTRADERMA PRN; +MIDAZOLAM 2 MG/2 ML VIAL IV PRN; -ONDANSETRON 4 MG/2 ML VIAL ONE; -Pre Op ABX Message 1 EACH MISC MISCELLANE ONE; -SODIUM CHLORIDE 0.9% IRRIGATIO 1,000 ML IRRIGATION ONE; -fentaNYL (PF) 50 MCG/ML 2 ML AMP IV PRN
[2021-04-28 09:41] VITALS: RESP 16; TEMP 96.9
[2021-04-28] MEDS ORDERED: PHENYLEPHRINE-0.9% NACL SYG 1,000 MCG/10 ML SYRINGE ONE (10:30)
[2021-04-28] MEDS ORDERED: PROPOFOL 10 MG/ML 20 ML VIAL IV ONE (10:30)
--- NOTE | 2021-04-28 10:36 | P.GSHP ---
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 Patient rents today for colonoscopy. Past Medical History Past Medical History: Asthma, Blood Disorder, Heart Failure, COPD, Deep Vein Thrombosis (DVT), Eye Disorder, Fibromyalgia, GERD/Reflux, Hearing Disorder / Deafness, Hyperlipidemia, Memory Impairment, Musculoskeletal Disorder, Neurologic Disorder, Osteoarthritis (OA), Pneumonia, Renal Disease, Skin Disorder, Sleep Apnea/CPAP/BIPAP, Syncope, Thyroid Disorder Additional Past Medical History / Comment(s): Multiple sclerosis, factor 5 leiden, RUBI-no device, DVT L leg 2013, hiatal hernia, hoarseness/leukoplakia, adrenal insufficiency/chronic steroid use/pituitary tumor, migraines, DJD, chronic back pain, bursitis, optic neuritis bilaterally, glaucoma , tinnitis, rosacea, insomnia, hypersomnia. bilat CTS, peripheral neuropathy, vertigo. hx infection at back surgery site. History of Any Multi-Drug Resistant Organisms: None Reported Date of last positivie culture/infection: 2013 MDRO Source:: stomach Past Surgical History: Back Surgery, Bladder Surgery, Section, Cholecystectomy, Tubal Ligation Additional Past Surgical History / Comment(s): 09/24/18 bladder stimulator, redone 09/2020. 02/05/19 microlarygoscopy/bx, vocal cord polypectomies, cervical bx, bladder suspension, EGD with bx, colonoscopy,. Laminectomy w/ decompression (01/09/20), Drainage of seroma back (02/02/20), removal spinal hardware, I&D back wound,. PICC line. Past Anesthesia/Blood Transfusion Reactions: Motion Sickness Additional Past Anesthesia/Blood Transfusion Reaction / Comment(s): occasional bad headaches. Smoking Status: Current every day smoker - Past Family History Brother(s) Family Medical History: Deep Vein Thrombosis (DVT) Father Family Medical History: Deep Vein Thrombosis (DVT) Additional Family Medical History / Comment(s): Patient states that her father has no cardiac history but his father had previous MN's. Mother Family Medical History: Cancer, Deep Vein Thrombosis (DVT), Pulmonary Embolus Additional Family Medical History / Comment(s): Cervical cancer. Medications and Allergies Home Medications Medication Instructions Recorded Confirmed Type Gabapentin 600 mg PO TID 08/13/16 04/28/21 History LORazepam [Ativan] 2 mg PO HS PRN 05/21/17 04/28/21 History Zonisamide [Zonegran] 200 mg PO HS PRN 10/15/17 04/28/21 History Potassium Chloride [Klor-Con 20] 20 meq PO BID PRN 09/30/18 04/28/21 History DULoxetine HCL [Cymbalta] 60 mg PO BID 04/01/19 04/28/21 History Morphine Sulfate ER [Ms Contin] 30 mg PO BID 04/01/19 04/28/21 History Levothyroxine Sodium 112 mcg PO DAILY 12/03/19 04/28/21 History Meclizine HCl 12.5 mg PO Q6H PRN 12/03/19 04/28/21 History Omeprazole 40 mg PO DAILY 12/03/19 04/28/21 History Ondansetron HCl [Zofran] 4 mg PO TID PRN 12/03/19 04/28/21 History traZODone HCL 100 mg PO HS PRN 12/03/19 04/28/21 History Apixaban [Eliquis] 5 mg PO BID 12/17/19 04/28/21 History Furosemide [Lasix] 40 mg PO DAILY PRN 12/17/19 04/28/21 History Ergocalciferol [Vitamin D2 50,000 unit PO TH 02/24/20 04/28/21 History (DRISDOL)] Loratadine 10 mg PO DAILY 02/24/20 04/28/21 History diphenhydrAMINE [Benadryl] 50 mg PO BID 02/24/20 04/28/21 History Hydrocortisone [Cortef] 30 mg PO QAM 10/07/20 04/28/21 History Morphine Sulfate ER [Ms Contin] 15 mg PO BID 10/07/20 04/28/21 History oxyCODONE HCL/ACETAMINOPHEN 1 tab PO QID 10/07/20 04/28/21 History [Percocet 10-325 mg] tiZANidine HCL 6 mg PO QID 10/07/20 04/28/21 History SUMAtriptan succinate [Imitrex] 100 mg PO DAILY PRN tab 10/11/20 04/28/21 Rx Albuterol Sulfate [Proair 2 puff INHALATION QID PRN 04/26/21 04/28/21 History Digihaler] Butalb/APAP/Caff 50-325-40Mg 2 tab PO BID PRN 04/26/21 04/28/21 History [Fioricet 50-325-40] Celecoxib [CeleBREX] 200 mg PO DAILY 04/26/21 04/28/21 History Cetirizine HCl [Zyrtec] 10 mg PO HS 04/26/21 04/28/21 History Dextroamphetamine/Amphetamine 30 mg PO BID 04/26/21 04/28/21 History [Adderall] Hydrocortisone [Cortef] 10 mg PO DAILY@1900 04/26/21 04/28/21 History Hydrocortisone [Cortef] 20 mg PO DAILY@0700,1900 04/26/21 04/28/21 History L.acidoph,Paracasei, B.lactis 1 each PO DAILY 04/26/21 04/28/21 History [Probiotic] Lurasidone [Latuda] 20 mg PO HS 04/26/21 04/28/21 History Magnesium Oxide [Mag-Ox] 400 mg PO HS 04/26/21 04/28/21 History Melatonin 5 mg PO HS 04/26/21 04/28/21 History Meloxicam [Mobic] 15 mg PO DAILY 04/26/21 04/28/21 History Methocarbamol [Robaxin-750] 750 mg PO TID 04/26/21 04/28/21 History Multivitamins, Thera [Multivitamin 1 tab PO DAILY 04/26/21 04/28/21 History (formulary)] Nystatin 100,000 Unit/ml Susp 5 ml PO QID PRN 04/26/21 04/28/21 History [Mycostatin Oral Susp] QUEtiapine [SEROquel] 25 mg PO HS PRN 04/26/21 04/28/21 History diazePAM [Diazepam] 2 mg PO BID 04/26/21 04/28/21 History rOPINIRole HCL [Requip] 0.5 mg PO BID PRN 04/26/21 04/28/21 History Allergies Allergy/AdvReac Type Severity Reaction Status Date / Time doxycycline Allergy Rash/Hives Verified 04/26/21 15:35 glatiramer (copolymer 1) Allergy Rapid Verified 04/26/21 15:35 [From Copaxone] Heart Rate,hives, skin flushing sulfamethoxazole Allergy blisters Verified 04/26/21 15:35 [From Bactrim] in mouth trimethoprim [From Bactrim] Allergy blisters Verified 04/26/21 15:35 in mouth steroids AdvReac genital Uncoded 04/26/21 15:35 burning & rashes but still takes steroids. Surgical - Exam Vital Signs Temp Pulse Resp BP Pulse Ox 96.9 F L 99 16 144/82 92 L 04/28/21 09:37 04/28/21 09:37 04/28/21 09:37 04/28/21 09:37 04/28/21 09:37 - General well developed, well nourished, no distress - Eyes PERRL - ENT normal pinna, normal nares Assessment and Plan Assessment: Rectal bleeding Perform colonoscopy
--- NOTE | 2021-04-28 10:49 | P.OP ---
Date of Procedure: 04/28/21 Preoperative Diagnosis: Rectal bleeding Postoperative Diagnosis: Internal hemorrhoids Procedure(s) Performed: Colonoscopy Anesthesia: MAC Surgeon: Chris Earl Pathology: none sent Condition: stable Disposition: PACU Description of Procedure: Patient's placed on the endoscopy table in the lateral position. She received IV sedation. Digital rectal exam was performed which revealed internal hemorrhoids. Flexible colonoscope was then placed patient anus and passed throughout the entire colon. There was a large amount of liquid stool which limited the view of the mucosa. The ileocecal valve was visualized. Cecum, ascending and transverse colon appeared normal. In the descending and sigmoid c olon there were no polyps or tumors seen. The scope was brought back the rectum was normal. Scope withdrawn through the anus and internal hemorrhoids. Is presumed the patient's rectal bleeding is due to internal hemorrhoids.
[2021-04-28 11:23] VITALS: BP 98/50; PULSE 88
== END 2021-04-28 11:28 | disposition home or self-care (01) ==
LOC: ORWHC2ENDO 09:11
PROVIDERS: ATTEND Surgery
DX: K64.8 Other hemorrhoids (principal); J44.9 Chronic obstructive pulmonary disease, unspecified; K21.9 Gastro-esophageal reflux disease without esophagitis; M79.7 Fibromyalgia; E07.9 Disorder of thyroid, unspecified; E78.5 Hyperlipidemia, unspecified; M19.90 Unspecified osteoarthritis, unspecified site; E27.40 Unspecified adrenocortical insufficiency; H91.90 Unspecified hearing loss, unspecified ear; I05.0 Rheumatic mitral stenosis; N28.9 Disorder of kidney and ureter, unspecified; D68.51 Activated protein C resistance; G43.909 Migraine, unspecified, not intractable, without status migrainosus; Z79.52 Long term (current) use of systemic steroids; G89.29 Other chronic pain; M54.9 Dorsalgia, unspecified; G47.33 Obstructive sleep apnea (adult) (pediatric); H40.9 Unspecified glaucoma; M79.2 Neuralgia and neuritis, unspecified; F17.210 Nicotine dependence, cigarettes, uncomplicated; Z79.899 Other long term (current) drug therapy; Z79.891 Long term (current) use of opiate analgesic
CPT/HCPCS: 45378; J2370; J2704

== ENCOUNTER 2022-05-05 12:52 | Emergency (ER) | payer MEDICARE, OTHER ==
[2022-05-05] MEDS ORDERED: ACETAMINOPHEN TAB 325 MG TAB PO STA (13:02)
[2022-05-05] MEDS ORDERED: SODIUM CHLORIDE 0.9% 500 ML 500 ML IV STA (13:02)
[2022-05-05] MEDS ORDERED: HYDROCORTISONE SUCCINATE 100 MG/2 ML VIAL IV STA (13:27)
[2022-05-05] MEDS ORDERED: HYDROmorphone 1 MG/ML 1 ML SYRINGE IVP STA ×2 (13:27→16:26)
[2022-05-05 13:28] LABS: Basophils # (A) 0.1 k/uL (0-0.2); Basophils % (A) 0 %; Eosinophils # (A) 0.5 k/uL (0-0.7); Eosinophils % (A) 4 %; HCT 35.7 % (34.0-46.0); HGB 10.7 gm/dL (11.4-16.0); Hypochromasia Marked; Lymphocytes # (A) 1.5 k/uL (1.0-4.8); Lymphocytes % (A) 13 %; MCH 24.1 pg (25.0-35.0); MCHC 30.1 g/dL (31.0-37.0); MCV 80.2 fL (80.0-100.0); Mean Platelet Volume 7.5; Monocytes # (A) 0.5 k/uL (0-1.0); Monocytes % (A) 4 %; Neutrophils # (A) 9.3 k/uL (1.3-7.7); Neutrophils % (A) 78 %; Platelet Count 254 k/uL (150-450); RBC 4.45 m/uL (3.80-5.40); RDW 14.8 % (11.5-15.5)
--- NOTE | 2022-05-05 13:31 | ED ---
General Adult HPI - General Chief complaint: Fever Stated complaint: ABD pain ,infect surg site Time Seen by Provider: 05/05/22 13:11 Source: patient Mode of arrival: ambulatory Limitations: no limitations - History of Present Illness Initial comments: Dictation was produced using [employer] dictation software. please excuse any grammatical, word or spelling errors. Chief Complaint: Patient is 52-year-old female presents to the emergency department for anterior abdominal surgical site drainage. History of Present Illness: 52-year-old female multiple comorbidities. She has past medical history of adrenal insufficiency, factor V deficiency, fibromyalgia, DVTs. Approximately one month ago she had spinal surgery performed at [facility]. Patient had a spinal fusion that required both anterior and posterior approaches. She states that postoperative course was unremarkable. She has been transferred after her hospitalization to [facility]. She's been there for 3 weeks. Patient states that for the last 7 days she noted drainage coming from the inferior portion of her anterior surgical site. Patient also complaining of some left-sided abdominal pain. Denies any fever or constitutional symptoms. Patient has history of adrenal insufficiency and takes hydrocortisone twice a day. The ROS documented in this emergency department record has been reviewed and confirmed by me. Those systems with pertinent positive or negative responses have been documented in the HPI. All other systems are other negative and/or noncontributory. PHYSICAL EXAM: General Impression: Alert and oriented x3, not in acute distress HEENT: Normocephalic atraumatic, extra-ocular movements intact, pupils equal and reactive to light bilaterally, mucous membranes moist. Cardiovascular: Heart regular rate and rhythm Chest: Able to complete full sentences, no retractions, no tachypnea Abdomen: abdomen soft, non-distended, no organomegaly, , anterior abdominal wound site nonerythematous but there is some cloudy discharge saturating the bandage. Patient does have some palpatory tenderness to the left anterior abdomen without any induration. Musculoskeletal: Pulses present and equal in all extremities, no peripheral ed marcella Motor: no focal deficits noted Neurological: CN II-XII grossly intact, no focal motor or sensory deficits noted Skin: Posterior surgical sites are clean dry and intact without any drainage. Psych: Normal affect and mood ED course: 52-year-old female multiple comorbidities presents emergency de partment for concern of infectious drainage coming from the inferior portion of her anterior abdominal surgical site. Vital signs upon arrival shows temperature of 100.2, pulse vital signs within acceptable limits. Patient is well-appearing at the bedside. spine surgeon is Dr. Campbell Laboratory evaluation obtained. Mild leukocytosis 12.0. Coag panel is unremarkable. Metabolic panel is negative. Urinalysis negative. For panel viral PCR is negative. Chest x-ray is nonacute. Computed tomography scan of the abdomen and pelvis shows subcutaneous fluid collection measuring 9.0 x 2.9 x 2.4 cm with suspicion of developing incisional abscess. Spoke with Dr. Campbell who is agreeable that patient should be transferred down [facility] for further care for the procedure was performed. Spoke with [facility] transfer line. Spoke with Dr. Loya who is accepting surgical cases. They are accepting of patient for ER to ER transfer. - Related Data Home Medications Medication Instructions Recorded Confirmed DULoxetine HCL [Cymbalta] 60 mg PO BID 04/01/19 05/05/22 ondansetron HCL [Zofran] 8 mg PO Q12H PRN 12/03/19 05/05/22 traZODone HCL 100 mg PO HS 12/03/19 05/05/22 Apixaban [Eliquis] 5 mg PO Q12H 12/17/19 05/05/22 Hydrocortisone [Cortef] 30 mg PO DAILY 10/07/20 05/05/22 Morphine Sulfate ER [Ms Contin] 15 mg PO Q8H 10/07/20 05/05/22 Cetirizine HCl [Zyrtec] 10 mg PO HS 04/26/21 05/05/22 Hydrocortisone [Cortef] 10 mg PO HS 04/26/21 05/05/22 Magnesium Oxide [Mag-Ox] 200 mg PO DAILY 04/26/21 05/05/22 Acetaminophen [Tylenol] 975 mg PO Q8H PRN 05/05/22 05/05/22 Albuterol Sulfate [Proair Hfa] 2 puff INHALATION RT-Q6H PRN 05/05/22 05/05/22 Amitriptyline HCl [Elavil] 100 mg PO HS 05/05/22 05/05/22 Atorvastatin [Lipitor] 20 mg PO HS 05/05/22 05/05/22 Baclofen [Lioresal] 20 mg PO TID PRN 05/05/22 05/05/22 Butalb/Acetaminophen/Caffeine 1 cap PO Q4H PRN 05/05/22 05/05/22 [Fioricet 50-300-40 mg Capsule] Ergocalciferol [Vitamin D2 (1250 1,250 mcg PO TU@0900 05/05/22 05/05/22 Mcg = 54798 Iu)] LORazepam [Ativan] 2 mg PO DAILY@1700 05/05/22 05/05/22 Levothyroxine Sodium [Synthroid] 125 mcg PO DAILY@0600 05/05/22 05/05/22 Lidocaine 5% Patch [Lidoderm] 1 patch TRANSDERM DAILY 05/05/22 05/05/22 Meclizine HCl 25 mg PO TID PRN 05/05/22 05/05/22 Omeprazole 40 mg PO DAILY@0600 05/05/22 05/05/22 Pregabalin [Lyrica] 200 mg PO Q8H 05/05/22 05/05/22 Sennosides/Docusate Sodium 2 tab PO Q12H 05/05/22 05/05/22 [Senna-S 8.6-50 mg Tablet] buPROPion XL [Wellbutrin XL] 300 mg PO HS 05/05/22 05/05/22 methocarbamoL [Robaxin] 1,000 mg PO Q8H 05/05/22 05/05/22 oxyCODONE HCL [OxyIR] 5 - 10 mg PO Q4H PRN 05/05/22 05/05/22 Allergies Allergy/AdvReac Type Severity Reaction Status Date / Time amoxicillin [From Augmentin] Allergy Unknown Verified 05/05/22 14:38 clavulanic acid Allergy Unknown Verified 05/05/22 14:38 [From Augmentin] doxycycline Allergy Rash/Hives Verified 05/05/22 14:38 glatiramer (copolymer 1) Allergy Rapid Verified 05/05/22 14:38 [From Copaxone] Heart Rate,hives, skin flushing sulfamethoxazole Allergy blisters Verified 05/05/22 14:38 [From Bactrim] in mouth trimethoprim [From Bactrim] Allergy blisters Verified 05/05/22 14:38 in mouth steroids AdvReac genital Uncoded 05/05/22 14:38 burning & rashes but still takes steroids. Review of Systems ROS Statement: Those systems with pertinent positive or pertinent negative responses have been documented in the HPI. ROS Other: All systems not noted in ROS Statement are negative. Past Medical History Past Medical History: Asthma, Blood Disorder, Heart Failure, COPD, Deep Vein Thrombosis (DVT), Eye Disorder, Fibromyalgia, GERD/Reflux, Hearing Disorder / De afness, Hyperlipidemia, Memory Impairment, Musculoskeletal Disorder, Neurologic Disorder, Osteoarthritis (OA), Pneumonia, Renal Disease, Skin Disorder, Sleep Apnea/CPAP/BIPAP, Syncope, Thyroid Disorder Additional Past Medical History / Comment(s): Multiple sclerosis, factor 5 leiden, RUBI-no device, DVT L leg 2014, hiatal hernia, hoarseness/leukoplakia, adrenal insufficiency/chronic steroid use/pituitary tumor, migraines, DJD, chronic back pain, bursitis, optic neuritis bilaterally, glaucoma , tinnitis, rosacea, insomnia, hypersomnia. bilat CTS, peripheral neuropathy, vertigo. hx infection at back surgery site. History of Any Multi-Drug Resistant Organisms: None Reported Date of last positivie culture/infection: 2013 MDRO Source:: stomach Past Surgical History: Back Surgery, Bladder Surgery, Section, Cholecystectomy, Tubal Ligation Additional Past Surgical History / Comment(s): 09/24/18 bladder stimulator, redone 09/2020. 02/05/19 microlarygoscopy/bx, vocal cord polypectomies, cervical bx, bladder suspension, EGD with bx, colonoscopy,. Laminectomy w/ decompression (01/09/20), Drainage of seroma back (02/02/20), removal spinal hardware, I&D back wound,. PICC line. Past Anesthesia/Blood Transfusion Reactions: Motion Sickness Additional Past Anesthesia/Blood Transfusion Reaction / Comment(s): occasional bad headaches. Past Psychological History: ADD/ADHD, Anxiety, Depression Smoking Status: Current every day smoker Past Alcohol Use History: None Reported Past Drug Use History: None Reported - Past Family History Brother(s) Family Medical History: Deep Vein Thrombosis (DVT) Father Family Medical History: Deep Vein Thrombosis (DVT) Additional Family Medical History / Comment(s): Patient states that her father has no cardiac history but his father had previous MS's. Mother Family Medical History: Cancer, Deep Vein Thrombosis (DVT), Pulmonary Embolus Additional Family Medical History / Comment(s): Cervical cancer. General Exam Limitations: no limitations Course Vital Signs 05/05/22 05/05/22 05/05/22 12:56 13:00 14:01 Temperature 100.2 F H 98.6 F Pulse Rate 100 98 95 Respiratory 18 18 20 Rate Blood Pressure 139/86 118/64 105/86 O2 Sat by Pulse 94 L 93 L 83 L Oximetry 05/05/22 16:46 Temperature 97.8 F Pulse Rate 87 Respiratory 16 Rate Blood Pressure 129/76 O2 Sat by Pulse 95 Oximetry Medical Decision Making - Lab Data Result diagrams: 05/05/22 13:10 05/05/22 13:10 Lab Results 05/05/22 05/05/22 05/05/22 Range/Units 13:10 13:10 13:10 WBC 12.0 H (3.8-10.6) k/uL RBC 4.45 (3.80-5.40) m/uL Hgb 10.7 L (11.4-16.0) gm/dL Hct 35.7 (34.0-46.0) % MCV 80.2 (80.0-100.0) fL MCH 24.1 L (25.0-35.0) pg MCHC 30.1 L (31.0-37.0) g/dL RDW 14.8 (11.5-15.5) % Plt Count 254 (150-450) k/uL MPV 7.5 Neutrophils % 78 % Lymphocytes % 13 % Monocytes % 4 % Eosinophils % 4 % Basophils % 0 % Neutrophils # 9.3 H (1.3-7.7) k/uL Lymphocytes # 1.5 (1.0-4.8) k/uL Monocytes # 0.5 (0-1.0) k/uL Eosinophils # 0.5 (0-0.7) k/uL Basophils # 0.1 (0-0.2) k/uL Hypochromasia Marked PT (9.0-12.0) sec INR (<1.2) APTT (22.0-30.0) sec Sodium 137 (137-145) mmol/L Potassium 4.4 (3.5-5.1) mmol/L Chloride 98 (98-107) mmol/L Carbon Dioxide 29 (22-30) mmol/L Anion Gap 10 mmol/L BUN 10 (7-17) mg/dL Creatinine 0.63 (0.52-1.04) mg/dL Est GFR (CKD-EPI)AfAm >90 (>60 ml/min/1.73 sqM) Est GFR (CKD-EPI)NonAf >90 (>60 ml/min/1.73 sqM) Glucose 149 H (74-99) mg/dL Plasma Lactic Acid Jasbir (0.7-2.0) mmol/L Calcium 8.6 (8.4-10.2) mg/dL Total Bilirubin 0.3 (0.2-1.3) mg/dL AST 15 (14-36) U/L ALT 12 (4-34) U/L Alkaline Phosphatase 92 (38-126) U/L Total Protein 5.6 L (6.3-8.2) g/dL Albumin 3.6 (3.5-5.0) g/dL Urine Color Light Yellow Urine Appearance Clear (Clear) Urine pH 6.5 (5.0-8.0) Ur Specific [place] 1.008 (1.001-1.035) Urine Protein Negative (Negative) Urine Glucose (UA) Negative (Negative) Urine Ketones Negative (Negative) Urine Blood Negative (Negative) Urine Nitrite Negative (Negative) Urine Bilirubin Negative (Negative) Urine Urobilinogen <2.0 (<2.0) mg/dL Ur Leukocyte Esterase Negative (Negative) Influenza Type A (PCR) (Not Detectd) Influenza Type B (PCR) (Not Detectd) RSV (PCR) (Not Detectd) SARS-CoV-2 (PCR) (Not Detectd) 05/05/22 05/05/22 05/05/22 Range/Units 13:10 13:10 13:20 WBC (3.8-10.6) k/uL RBC (3.80-5.40) m/uL Hgb (11.4-16.0) gm/dL Hct (34.0-46.0) % MCV (80.0-100.0) fL MCH (25.0-35.0) pg MCHC (31.0-37.0) g/dL RDW (11.5-15.5) % Plt Count (150-450) k/uL MPV Neutrophils % % Lymphocytes % % Monocytes % % Eosinophils % % Basophils % % Neutrophils # (1.3-7.7) k/uL Lymphocytes # (1.0-4.8) k/uL Monocytes # (0-1.0) k/uL Eosinophils # (0-0.7) k/uL Basophils # (0-0.2) k/uL Hypochromasia PT 9.5 (9.0-12.0) sec INR 0.8 (<1.2) APTT 26.5 (22.0-30.0) sec Sodium (137-145) mmol/L Potassium (3.5-5.1) mmol/L Chloride (98-107) mmol/L Carbon Dioxide (22-30) mmol/L Anion Gap mmol/L BUN (7-17) mg/dL Creatinine (0.52-1.04) mg/dL Est GFR (CKD-EPI)AfAm (>60 ml/min/1.73 sqM) Est GFR (CKD-EPI)NonAf (>60 ml/min/1.73 sqM) Glucose (74-99) mg/dL Plasma Lactic Acid Jasbir 1.2 (0.7-2.0) mmol/L Calcium (8.4-10.2) mg/dL Total Bilirubin (0.2-1.3) mg/dL AST (14-36) U/L ALT (4-34) U/L Alkaline Phosphatase (38-126) U/L Total Protein (6.3-8.2) g/dL Albumin (3.5-5.0) g/dL Urine Color Urine Appearance (Clear) Urine pH (5.0-8.0) Ur Specific [place] (1.001-1.035) Urine Protein (Negative) Urine Glucose (UA) (Negative) Urine Ketones (Negative) Urine Blood (Negative) Urine Nitrite (Negative) Urine Bilirubin (Negative) Urine Urobilinogen (<2.0) mg/dL Ur Leukocyte Esterase (Negative) Influenza Type A (PCR) Not Detected (Not Detectd) Influenza Type B (PCR) Not Detected (Not Detectd) RSV (PCR) Not Detected (Not Detectd) SARS-CoV-2 (PCR) Not Detected (Not Detectd) Disposition Clinical Impression: Surgical site infection Disposition: OTHER INSTITUTION NOT DEFINED Condition: Fair Referrals: Kyle Sweeney MD [Primary Care Provider] - 1-2 days Time of Disposition: 17:27 - Out of Hospital Transfer - Req. Specs Out of Hospital Transfer - Requested Specifics: Other Emergency Center ([facility])
[2022-05-05 13:33] LABS: Appearance,Urine Clear (Clear); Bilirubin,Urine Negative (Negative); Blood,Urine Negative (Negative); Color,Urine Light Yellow; Glucose,Urine (UA) Negative (Negative); Ketones,Urine Negative (Negative); Leukocyte Esterase,Urine Negative (Negative); Nitrite,Urine Negative (Negative); PH, Urine 6.5 (5.0-8.0); Protein,Urine Negative (Negative); Specific Gravity,Urine 1.008 (1.001-1.035); Urobilinogen,Urine <2.0 mg/dL (<2.0)
[2022-05-05 13:45] LABS: ALT 12 U/L (4-34); AST 15 U/L (14-36); African American GFR (CKD) >90 (>60 ml/min/1.73 sqM); Albumin 3.6 g/dL (3.5-5.0); Alkaline Phosphatase 92 U/L (38-126); Anion Gap 10 mmol/L; Blood Urea Nitrogen 10 mg/dL (7-17); Calcium 8.6 mg/dL (8.4-10.2); Carbon Dioxide 29 mmol/L (22-30); Chloride 98 mmol/L (98-107); Glucose 149 mg/dL (74-99); Non-African American GFR(CKD) >90 (>60 ml/min/1.73 sqM); Potassium 4.4 mmol/L (3.5-5.1); Sodium 137 mmol/L (137-145); Total Bilirubin 0.3 mg/dL (0.2-1.3); Total Protein 5.6 g/dL (6.3-8.2)
[2022-05-05 14:00] LABS: INR 0.8 (<1.2); Partial Thromboplastin Time 26.5 sec (22.0-30.0); Prothrombin Time 9.5 sec (9.0-12.0)
[2022-05-05] MEDS ORDERED: diphenhydrAMINE 50 MG/ML 1 ML VIAL IVP STA (14:08)
--- NOTE | 2022-05-05 15:22 | XR ---
EXAMINATION TYPE: XR chest 2V DATE OF EXAM: 05/05/2022 COMPARISON: NONE HISTORY: Shortness of breath TECHNIQUE: Frontal and lateral views of the chest are obtained. FINDINGS: Scattered senescent parenchymal changes noted. Hyperinflation compatible with COPD. No evidence for infiltrate. No evidence for atelectasis. Heart size is stable. Mediastinal structures are stable and grossly unremarkable. No evidence for hilar prominence. Degenerative changes dorsal spine. IMPRESSION: 1. No evidence for acute pulmonary disease.
--- NOTE | 2022-05-05 15:48 | CT ---
EXAMINATION TYPE: CT abdomen pelvis w con DATE OF EXAM: 05/05/2022 COMPARISON: Correlation report PET/CT 11/05/2020 HISTORY: 52-year-old female anterior surgical site drainage, abdominal pain and fever post spinal sx TECHNIQUE: Contiguous axial scanning of the abdomen and pelvis following administration of 100 ml Iso felicia 300 IV contrast. Delayed images through the kidneys and coronal/sagittal reconstructions perform ed. CT DLP: 2868.4 mGycm Automated exposure control for dose reduction was used. FINDINGS: Heart normal size without pericardial effusion. Minimal emphysematous change in the lower l ungs. Mild dependent atelectasis. No pleural effusion. Liver enlarged at 21.2 cm. Diffuse low-attenuation. There is a blush of enhancement along the left a bdomen, less likely vascular shunting. Portal venous system is patent. Cholecystectomy clips. Bile du ct dilated to 1.2 cm with a mild intrahepatic biliary ductal dilatation. No distal obstructing lesion is seen. Tortuous duodenum at the junction of the second and third portions. Cholecystectomy clips. Right adrenal gland, kidneys, spleen, and pancreas otherwise show no gross adenopathy. Redemonstrated mixed soft tissue and fat density mass of the inferior left adrenal gland measuring up to 5.7 x 4.2 cm. This is in comparison to 3.8 x 2.6 cm on 11/05/2020 and was noted to be enlarging at that time as well. Mild atherosclerotic calcifications infrarenal abdominal aorta. No dilated small bowel, free fluid, or free air. There is moderate stool burden. Mildly redundant sig moid colon. No pericolonic inflammatory change. Mild generalized anasarca change. Anterior infraumbilical midline surgical site. There is fluid located along the surgical scar within the subcutaneous adipose layer measuring 9.0 cm craniocaudal by 2.9 cm AP by up to 2.4 cm wide. Its f luid is located 2.2 cm deep to the skin surface. Slight asymmetric thickening of the left inferior re ctus abdominous musculature could represent a contiguous soft tissue infection. Partially visualized that density mass within the left adductor compartment measuring up to 9.2 x 6.2 cm. No significant internal complexity is identified. Probably lipoma. Given size and location, rec ommend orthopedic surveillance. Bladder is urine distended. Uterus anteverted. Neither ovary clearly delineated. There is some prevertebral soft tissue thickening extending from L4 through S1 levels likely secondar y to recent surgery. Posterior and interbody fusion changes are present with corresponding laminectom ies. Left paramedian posterior fluid collection measuring 4.9 x 2.0 x 1.8 cm underlying the skin nery. Right paramedian posterior fluid collection measuring 6.8 x 3.0 x 3.0 cm underlying the skin nery. Located 1.5 cm deep to the skin surface. IMPRESSION: 1. ANTERIOR INFRAUMBILICAL POSTSURGICAL CHANGE with a vertically oriented subcutaneous fluid collecti on measuring 9.0 x 2.9 x 2.4 cm. Suspect developing incisional abscess located 2.2 cm deep to the ski n surface. 2. Post surgical change of recent L4-S1 posterior and interbody lumbar fusion with laminectomies. 3. Note additional fluid collections posteriorly underlying the skin nery on either side. The righ t paramedian collection is larger at 6.8 x 3.0 cm, 1.5 cm deep to the skin surface. The left-sided co llection measures 4.9 x 2.0 cm. Postoperative seroma or developing abscesses are in the differential. 4. Mixed density left adrenal mass measuring 5.7 x 4.2 cm. This continues to increase in size having measured 3.8 x 2.6 cm on 11/05/2020. While a myelolipoma is possible, given continued increase in size , surgical evaluation is advised. 5. A 9.2 cm fat density mass centered within the left adductor musculature of the medial upper thigh. Given size and location, recommend orthopedic surveillance. 6. Hepatomegaly and hepatic steatosis. 7. Dilated bile duct at 1.2 cm likely chronic postcholecystectomy change. Correlate with alkaline selwyn sphatase and bilirubin levels.
[2022-05-05] MEDS ORDERED: CEFEPIME 2 GM in SODIUM CHLORIDE 0.9% 100 ML IVPB STA (15:56)
[2022-05-05] MEDS ORDERED: VANCOMYCIN IV PER PHARMACY 1 EACH MISC MISCELLANE PRN (15:56)
[2022-05-05] MEDS ORDERED: VANCOMYCIN 1,750 MG in SODIUM CHLORIDE 0.9% 500 ML 500 ML IVPB STA (16:01)
[2022-05-06 00:55] VITALS: BP 126/80; PULSE 84; RESP 18; TEMP 98.2
[2022-05-06] MEDS ORDERED: VANCOMYCIN 1,750 MG in SODIUM CHLORIDE 0.9% 500 ML 500 ML IVPB SCH (06:00)
== END 2022-05-05 17:59 | disposition other institution (70) ==
LOC: EC 12:52
DX: T81.49XA Infection following a procedure, other surgical site, initial encounter (principal); J45.909 Unspecified asthma, uncomplicated; K21.9 Gastro-esophageal reflux disease without esophagitis; Z79.83 Long term (current) use of bisphosphonates; E78.5 Hyperlipidemia, unspecified; F17.200 Nicotine dependence, unspecified, uncomplicated; Z20.822 Contact with and (suspected) exposure to COVID-19; Z88.1 Allergy status to other antibiotic agents; Z88.0 Allergy status to penicillin; Z88.8 Allergy status to other drugs, medicaments and biological substances; Z88.6 Allergy status to analgesic agent
CPT/HCPCS: 36415; 93005; 80053; 83605; 85025; 85610; 85730; 81003; 87040; 87636; 71046; 74177; 99285; 96365; 96367; 96361; J3370; J1200; J1720; J0692; J1170; Q9967

== ENCOUNTER → 2023-01-10 | Outpatient (CLI) | payer MEDICARE, OTHER ==
--- NOTE | 2023-01-11 19:09 | MM ---
Reason for Exam: Screening (asymptomatic). Last mammogram was performed 4 year(s) and 5 month(s) ago. Patient History: Menarche at age 15. First Full-Term at age 16. Postmenopausal. Risk Values: Jenniffer 5 year model risk: 0.7%. NCI Lifetime model risk: 5.8%. Prior Study Comparison: 04/03/2017 Bilateral Diagnostic Mammogram, [facility]. 08/07/2018 Bilateral Diagnostic Mammogram, [facility]. Tissue Density: There are scattered fibroglandular densities. Findings: Analyzed By CAD. There is no suspicious group of microcalcifications or new suspicious mass in either breast. Overall Assessment: Negative, BI-RAD 1 Management: Screening Mammogram of both breasts in 1 year. . Patient should continue monthly self-breast exams. A clinical breast exam by your physician is recommended on an annual basis. This exam should not preclude additional follow-up of suspicious palpable abnormalities. Note on Jenniffer scores and lifetime risk: 1. A Jenniffer score greater than 3% is considered moderate risk. If this is the case, consider specialist referral to assess eligibility for a risk reducing agent. 2. If overall lifetime risk for the development of breast cancer is 20% or higher, the patient may qualify for future screening with alternating mammogram and breast MRI. Electronically signed and approved by: Clint Martinez M.D. Radiologist
== END | disposition home or self-care (01) ==
LOC: RADMAMWWP 16:30
PROVIDERS: ATTEND Family Medicine
DX: Z12.31 Encounter for screening mammogram for malignant neoplasm of breast (principal); Z78.0 Asymptomatic menopausal state
CPT/HCPCS: 77063; 77067

== ENCOUNTER 2023-05-31 12:30 | Observation (INO) | payer MEDICARE, OTHER ==
--- NOTE | 2023-05-31 14:01 | ED ---
General Adult HPI - General Chief complaint: Recheck/Abnormal Lab/Rx Stated complaint: sepsis Time Seen by Provider: 05/31/23 13:40 Source: patient, RN notes reviewed Mode of arrival: ambulatory Limitations: no limitations - History of Present Illness Initial comments: 53-year-old female history of multiple medical issues including COPD heart failure renal disease MS Jannette disease COPD who presents from her doctor's office with complaints of symptoms of urinary tract/bladder infection she's had nausea and abdominal cramps weakness burning with urination and frequency small amount of urine coming out. He has ever previous history of sepsis from urinary tract infection. She does admit to decreased oral intake lightheadedness and dizziness when he tries ambulate. - Related Data Home Medications Medication Instructions Recorded Confirmed DULoxetine HCL [Cymbalta] 60 mg PO BID 04/01/19 05/31/23 ondansetron HCL [Zofran] 4 - 8 mg PO DAILY PRN 12/03/19 05/31/23 traZODone HCL 100 mg PO HS 12/03/19 05/31/23 Apixaban [Eliquis] 5 mg PO Q12H 12/17/19 05/31/23 Hydrocortisone [Cortef] 20 mg PO DAILY 10/07/20 05/31/23 Morphine Sulfate ER [Ms Contin] 15 mg PO Q12H 10/07/20 05/31/23 Hydrocortisone [Cortef] 10 mg PO HS 04/26/21 05/31/23 Acetaminophen [Tylenol] 975 mg PO Q8H PRN 05/05/22 05/31/23 Albuterol Sulfate [Proair Hfa] 2 puff INHALATION RT-Q6H PRN 05/05/22 05/31/23 Amitriptyline HCl [Elavil] 100 mg PO HS 05/05/22 05/31/23 Ergocalciferol [Vitamin D2 (1250 1,250 mcg PO MO 05/05/22 05/31/23 Mcg = 61666 Iu)] Omeprazole 20 mg PO DAILY 05/05/22 05/31/23 buPROPion XL [Wellbutrin XL] 300 mg PO DAILY 05/05/22 05/31/23 ALPRAZolam [Xanax] 0.5 mg PO TID PRN 05/31/23 05/31/23 Ascorbic Acid [Vitamin C] 1,000 mg PO DAILY 05/31/23 05/31/23 Calcium Carbonate [Calcium] 600 mg PO DAILY 05/31/23 05/31/23 Cariprazine HCl [Vraylar] 1.5 mg PO DAILY 05/31/23 05/31/23 Celecoxib [CeleBREX] 200 mg PO DAILY 05/31/23 05/31/23 Ketorolac [Toradol] 10 mg PO Q6HR PRN 05/31/23 05/31/23 Levothyroxine Sodium [Synthroid] 100 mcg PO DAILY 05/31/23 05/31/23 Meloxicam [Mobic] 15 mg PO DAILY 05/31/23 05/31/23 Multivitamins, Thera [Multivitamin 1 tab PO DAILY 05/31/23 05/31/23 (formulary)] Naloxone HCl [Narcan] 4 mg NASAL ONCE PRN 05/31/23 05/31/23 Orphenadrine Citrate [Orphenadrine 100 mg PO BID PRN 05/31/23 05/31/23 Citrate ER] Phentermine HCl [Adipex-P] 37.5 mg PO AC-BRKFST 05/31/23 05/31/23 Pregabalin [Lyrica] 200 mg PO TID 05/31/23 05/31/23 Semaglutide [Ozempic] 1 mg SQ MO 05/31/23 05/31/23 Tiotropium Br/Olodaterol HCl 2 puff INHALATION RT-DAILY 05/31/23 05/31/23 [Stiolto Respimat Inhal Dickinson] Varenicline [Chantix Starter Pack] See Taper PO DIRECTED 05/31/23 05/31/23 metroNIDAZOLE 0.75% CREAM 1 applic TOPICAL HS 05/31/23 05/31/23 [Metrocream 0.75%] oxyCODONE-APAP 10-325MG [Percocet 1 tab PO TID 05/31/23 05/31/23 10-325 mg] Allergies Allergy/AdvReac Type Severity Reaction Status Date / Time amoxicillin [From Augmentin] Allergy Diarrhea, Verified 05/31/23 14:53 hives clavulanic acid Allergy Diarrhea, Verified 05/31/23 14:53 [From Augmentin] hives doxycycline Allergy Rash/Hives Verified 05/31/23 14:52 glatiramer (copolymer 1) Allergy Rapid Verified 05/31/23 14:52 [From Copaxone] Heart Rate,hives, skin flushing sulfamethoxazole Allergy blisters Verified 05/31/23 14:52 [From Bactrim] in mouth, rash/hives trimethoprim [From Bactrim] Allergy blisters Verified 05/31/23 14:52 in mouth, rash/hives steroids AdvReac genital Uncoded 05/31/23 12:52 burning & rashes but still takes steroids. Review of Systems ROS Statement: Those systems with pertinent positive or pertinent negative responses have been documented in the HPI. ROS Other: All systems not noted in ROS Statement are negative. Past Medical History Past Medical History: Asthma, Blood Disorder, Heart Failure, COPD, Deep Vein Thrombosis (DVT), Eye Disorder, Fibromyalgia, GERD/Reflux, Hearing Disorder / Deafness, Hyperlipidemia, Memory Impairment, Musculoskeletal Disorder, Neurologic Disorder, Osteoarthritis (OA), Pneumonia, Renal Disease, Skin Disorder, Sleep Apnea/CPAP/BIPAP, Syncope, Thyroid Disorder Additional Past Medical History / Comment(s): Multiple sclerosis, factor 5 leiden, RUBI-no device, DVT L leg 2013, hiatal hernia, hoarseness/leukoplakia, adrenal insufficiency/chronic steroid use/pituitary tumor, migraines, DJD, chronic back pain, bursitis, optic neuritis bilaterally, glaucoma , tinnitis, rosacea, insomnia, hypersomnia. bilat CTS, peripheral neuropathy, vertigo. hx infection at back surgery site. History of Any Multi-Drug Resistant Organisms: None Reported Date of last positivie culture/infection: 2013 MDRO Source:: stomach Past Surgical History: Back Surgery, Bladder Surgery, Section, Cholecystectomy, Tubal Ligation Additional Past Surgical History / Comment(s): 09/24/18 bladder stimulator, redone 09/2020. 02/05/19 microlarygoscopy/bx, vocal cord polypectomies, cervical bx, bladder suspension, EGD with bx, colonoscopy,. Laminectomy w/ decompression (01/09/20), Drainage of seroma back (02/02/20), removal spinal hardware, I&D back wound,. PICC line. Past Anesthesia/Blood Transfusion Reactions: Motion Sickness Additional Past Anesthesia/Blood Transfusion Reaction / Comment(s): occasional bad headaches. Past Psychological History: ADD/ADHD, Anxiety, Depression Smoking Status: Current every day smoker Past Alcohol Use History: None Reported Past Drug Use History: None Reported - Past Family History Brother(s) Family Medical History: Deep Vein Thrombosis (DVT) Father Family Medical History: Deep Vein Thrombosis (DVT) Additional Family Medical History / Comment(s): Patient states that her father has no cardiac history but his father had previous NH's. Mother Family Medical History: Cancer, Deep Vein Thrombosis (DVT), Pulmonary Embolus Additional Family Medical History / Comment(s): Cervical cancer. General Exam - General Exam Comments Initial Comments: Is a well-developed well-nourished awake alert oriented 4 female Limitations: no limitations General appearance: alert, in no apparent distress Head exam: Present: atraumatic, normocephalic, normal inspection Eye exam: Present: normal appearance, PERRL, EOMI. Absent: scleral icterus, conjunctival injection, periorbital swelling ENT exam: Present: mucous membranes dry Neck exam: Present: normal inspection, full ROM, other (No genitourinary bruits). Absent: tenderness, meningismus, lymphadenopathy Respiratory exam: Present: normal lung sounds bilaterally. Absent: respiratory distress, wheezes, rales, rhonchi, stridor Cardiovascular Exam: Present: normal rhythm, tachycardia, normal heart sounds. Absent: systolic murmur, diastolic murmur, rubs, gallop, clicks GI/Abdominal exam: Present: soft, tenderness (Mild suprapubic tenderness palpat ion no guarding rebound masses or bruits), normal bowel sounds. Absent: distended, guarding, rebound, rigid Extremities exam: Present: normal inspection, full ROM, normal capillary refill. Absent: tenderness, pedal edema, joint swelling, calf tenderness Back exam: Present: normal inspection Neurological exam: Present: alert, oriented X3, CN II-XII intact Psychiatric exam: Present: normal affect, normal mood Skin exam: Present: warm, dry, intact, normal color. Absent: rash Course Vital Signs 05/31/23 05/31/23 05/31/23 12:49 17:27 18:10 Temperature 98.7 F Pulse Rate 104 H 80 80 Respiratory 18 18 18 Rate Blood Pressure 111/62 95/59 105/77 O2 Sat by Pulse 96 94 L Oximetry - Reevaluation(s) Reevaluation #1: 05/31/23 18:25 Patient did appear to have a hypotensive episode which did respond to IV fluids I did discuss the case with the patient and with Dr. Palomino EKG Findings - EKG Results: EKG: interpreted by ERMD (EKG interpreted by me sinus rhythm of 87. Interval 144 QRS duration 85 daily since QTC 357/41 low-voltage no acute ST-T wave changes) Medical Decision Making - Medical Decision Making I did discuss the findings with the patient and with Dr. Palomino. Patient be admitted for IV antibiotics IV fluids she did demonstrate a hypotensive episode but this did resolve with IV fluids.Was pt. sent in by a medical professional or institution (, PA, DIRECTOR OF DISTRICT OFFICE, urgent care, hospital, or [facility]...) When possible be specific @ -No Did you speak to anyone other than the patient for history (EMS, parent, family, police, friend...)? What history was obtained from this source @ -No Did you review nursing and triage notes (agree or disagree)? Why? @ -I reviewed and agree with nursing and triage notes Were old charts reviewed (outside hosp., previous admission, EMS record, old EKG, old radiological studies, urgent care reports/EKG's, [facility] records)? Report findings @ -Recent old charts were reviewed Differential Diagnosis (chest pain, altered mental status, abdominal pain women, abdominal pain men, vaginal bleeding, weakness, fever, dyspnea, syncope, headache, dizziness, GI bleed, back pain, seizure, CVA, palpatations, mental health, musculoskeletal)? @ -Urine tract infection, dehydration EKG interpreted by me (3pts min.). @ -As above EKG interpreted by me sinus rhythm of 87 WA interval 144 QRS duration 85 daily since QTC 357/41 T wave changes X-rays interpreted by me (1pt min.). @ -Is interpreted by me no acute process CT interpreted by me (1pt min.). @ -None done U/S interpreted by me (1pt. min.). @ -None done What testing was considered but not performed or refused? (CT, X-rays, U/S, labs)? Why? @ -None What meds were considered but not given or refused? Why? @ -None Did you discuss the management of the patient with other professionals (professionals i.e. , PA, DIRECTOR OF DISTRICT OFFICE, lab, RT, psych nurse, web content & social media manager, sexual assault response coordinator, teacher, air control/anti air warfare officer, case work aide)? Give summary @ -Dr. Palomino Was smoking cessation discussed for >3mins.? @ -No Was critical care preformed (if so, how long)? @ -No Were there social determinants of health that impacted care today? How? (Homelessness, low income, unemployed, alcoholism, drug addiction, transporta tion, low edu. Level, literacy, decrease access to med. care, retirement, rehab)? @ -No Was there de-escalation of care discussed even if they declined (Discuss DNR or withdrawal of care, Hospice)? DNR status @ -No What co-morbidities impacted this encounter? (DM, HTN, Smoking, COPD, CAD, Cancer, CVA, ARF, Chemo, Hep., AIDS, mental health diagnosis, sleep apnea, morbid obesity)? @ -COPD CHF UTI multiple sclerosis Was patient admitted / discharged? Hospital course, mention meds given and route, prescriptions, significant lab abnormalities, going to OR and other pertinent info. @ -hospital course it was minute for IV hydration IV fluids/IV antibiotics Undiagnosed new problem with uncertain prognosis? @ -No Drug Therapy requiring intensive monitoring for toxicity (Heparin, Nitro, Insulin, Cardizem)? @ -No Were any procedures done? @ -No Diagnosis/symptom? @ -Urinary tract infection, dehydration, hypotensive episode Acute, or Chronic, or Acute on Chronic? @ -Every Uncomplicated (without systemic symptoms) or Complicated (systemic symptoms)? @ -Complicated Side effects of treatment? @ -No Exacerbation, Progression, or Severe Exacerbation? @ -No Poses a threat to life or bodily function? How? (Chest pain, USA, NH, pneumonia, PE, COPD, DKA, ARF, appy, cholecystitis, CVA, Diverticulitis, Homicidal, Suicidal, threat to staff... and all critical care pts) @ -Urinary tract infection with history of sepsis - Lab Data Result diagrams: 05/31/23 14:46 05/31/23 14:46 Lab Results 05/31/23 05/31/23 05/31/23 Range/Units 14:27 14:46 14:46 WBC 14.8 H (3.8-10.6) k/uL RBC 5.36 (3.80-5.40) m/uL Hgb 13.9 (11.4-16.0) gm/dL Hct 41.5 (34.0-46.0) % MCV 77.5 L (80.0-100.0) fL MCH 25.9 (25.0-35.0) pg MCHC 33.4 (31.0-37.0) g/dL RDW 16.5 H (11.5-15.5) % Plt Count 253 (150-450) k/uL MPV 8.2 Neutrophils % 83 % Lymphocytes % 12 % Monocytes % 3 % Eosinophils % 1 % Basophils % 0 % Neutrophils # 12.2 H (1.3-7.7) k/uL Lymphocytes # 1.7 (1.0-4.8) k/uL Monocytes # 0.5 (0-1.0) k/uL Eosinophils # 0.1 (0-0.7) k/uL Basophils # 0.0 (0-0.2) k/uL Anisocytosis Slight Microcytosis Slight Sodium 134 L (137-145) mmol/L Potassium 4.4 (3.5-5.1) mmol/L Chloride 100 (98-107) mmol/L Carbon Dioxide 27 (22-30) mmol/L Anion Gap 7 mmol/L BUN 12 (7-17) mg/dL Creatinine 0.75 (0.52-1.04) mg/dL Est GFR (CKD-EPI)AfAm >90 (>60 ml/min/1.73 sqM) Est GFR (CKD-EPI)NonAf >90 (>60 ml/min/1.73 sqM) Glucose 112 H (74-99) mg/dL Plasma Lactic Acid Jasbir (0.7-2.0) mmol/L Calcium 9.2 (8.4-10.2) mg/dL Magnesium 1.9 (1.6-2.3) mg/dL Total Bilirubin 0.6 (0.2-1.3) mg/dL AST 34 (14-36) U/L ALT 27 (4-34) U/L Alkaline Phosphatase 89 (38-126) U/L Creatine Kinase 42 (30-135) U/L Troponin I (0.000-0.034) ng/mL Total Protein 6.3 (6.3-8.2) g/dL Albumin 3.9 (3.5-5.0) g/dL Lipase 28 (23-300) U/L Urine Color Light Yellow Urine Appearance Cloudy H (Clear) Urine pH 5.0 (5.0-8.0) Ur Specific Felda 1.008 (1.001-1.035) Urine Protein Negative (Negative) Urine Glucose (UA) Negative (Negative) Urine Ketones Negative (Negative) Urine Blood Negative (Negative) Urine Nitrite Negative (Negative) Urine Bilirubin Negative (Negative) Urine Urobilinogen <2.0 (<2.0) mg/dL Ur Leukocyte Esterase Large H (Negative) Urine RBC 2 (0-5) /hpf Urine WBC 62 H (0-5) /hpf Urine WBC Clumps Few H (None) /hpf Ur Squamous Epith Cells 10 H (0-4) /hpf Amorphous Sediment Rare H (None) /hpf Urine Bacteria Occasional H (None) /hpf Urine Mucus Rare H (None) /hpf 05/31/23 05/31/23 Range/Units 14:46 14:46 WBC (3.8-10.6) k/uL RBC (3.80-5.40) m/uL Hgb (11.4-16.0) gm/dL Hct (34.0-46.0) % MCV (80.0-100.0) fL MCH (25.0-35.0) pg MCHC (31.0-37.0) g/dL RDW (11.5-15.5) % Plt Count (150-450) k/uL MPV Neutrophils % % Lymphocytes % % Monocytes % % Eosinophils % % Basophils % % Neutrophils # (1.3-7.7) k/uL Lymphocytes # (1.0-4.8) k/uL Monocytes # (0-1.0) k/uL Eosinophils # (0-0.7) k/uL Basophils # (0-0.2) k/uL Anisocytosis Microcytosis Sodium (137-145) mmol/L Potassium (3.5-5.1) mmol/L Chloride (98-107) mmol/L Carbon Dioxide (22-30) mmol/L Anion Gap mmol/L BUN (7-17) mg/dL Creatinine (0.52-1.04) mg/dL Est GFR (CKD-EPI)AfAm (>60 ml/min/1.73 sqM) Est GFR (CKD-EPI)NonAf (>60 ml/min/1.73 sqM) Glucose (74-99) mg/dL Plasma Lactic Acid Jasbir 0.7 (0.7-2.0) mmol/L Calcium (8.4-10.2) mg/dL Magnesium (1.6-2.3) mg/dL Total Bilirubin (0.2-1.3) mg/dL AST (14-36) U/L ALT (4-34) U/L Alkaline Phosphatase (38-126) U/L Creatine Kinase (30-135) U/L Troponin I <0.012 (0.000-0.034) ng/mL Total Protein (6.3-8.2) g/dL Albumin (3.5-5.0) g/dL Lipase (23-300) U/L Urine Color Urine Appearance (Clear) Urine pH (5.0-8.0) Ur Specific Felda (1.001-1.035) Urine Protein (Negative) Urine Glucose (UA) (Negative) Urine Ketones (Negative) Urine Blood (Negative) Urine Nitrite (Negative) Urine Bilirubin (Negative) Urine Urobilinogen (<2.0) mg/dL Ur Leukocyte Esterase (Negative) Urine RBC (0-5) /hpf Urine WBC (0-5) /hpf Urine WBC Clumps (None) /hpf Ur Squamous Epith Cells (0-4) /hpf Amorphous Sediment (None) /hpf Urine Bacteria (None) /hpf Urine Mucus (None) /hpf Disposition Clinical Impression: Urinary tract infection, Dehydration, Hypotensive episode Disposition: ADMITTED IP TO THIS [facility] Condition: Stable Referrals: Richy Palomino MD [Primary Care Provider] - 1-2 days Decision Date: 05/31/23 Decision Time: 19:00
[2023-05-31 14:43] LABS: Amorphous Sediment,Urine Rare /hpf; Appearance,Urine Cloudy (Clear); Bacteria,Urine Occasional /hpf; Bilirubin,Urine Negative (Negative); Blood,Urine Negative (Negative); Color,Urine Light Yellow; Glucose,Urine (UA) Negative (Negative); Ketones,Urine Negative (Negative); Leukocyte Esterase,Urine Large (Negative); Mucus,Urine Rare /hpf; Nitrite,Urine Negative (Negative); Protein,Urine Negative (Negative); RBC,Urine 2 /hpf (0-5); Specific Gravity,Urine 1.008 (1.001-1.035); Squamous Epithelial Cell,Urine 10 /hpf (0-4); Urobilinogen,Urine <2.0 mg/dL (<2.0); WBC,Urine 62 /hpf (0-5)
[2023-05-31 14:58] LABS: Anisocytosis Slight; Basophils % (A) 0 %; Eosinophils # (A) 0.1 k/uL (0-0.7); Eosinophils % (A) 1 %; HCT 41.5 % (34.0-46.0); HGB 13.9 gm/dL (11.4-16.0); Lymphocytes # (A) 1.7 k/uL (1.0-4.8); Lymphocytes % (A) 12 %; MCH 25.9 pg (25.0-35.0); MCHC 33.4 g/dL (31.0-37.0); MCV 77.5 fL (80.0-100.0); Mean Platelet Volume 8.2; Microcytosis Slight; Monocytes # (A) 0.5 k/uL (0-1.0); Monocytes % (A) 3 %; Neutrophils # (A) 12.2 k/uL (1.3-7.7); Neutrophils % (A) 83 %; Platelet Count 253 k/uL (150-450); RBC 5.36 m/uL (3.80-5.40); RDW 16.5 % (11.5-15.5); WBC 14.8 k/uL (3.8-10.6)
[2023-05-31 15:16] LABS: ALT 27 U/L (4-34); AST 34 U/L (14-36); African American GFR (CKD) >90 (>60 ml/min/1.73 sqM); Albumin 3.9 g/dL (3.5-5.0); Alkaline Phosphatase 89 U/L (38-126); Anion Gap 7 mmol/L; Blood Urea Nitrogen 12 mg/dL (7-17); Calcium 9.2 mg/dL (8.4-10.2); Carbon Dioxide 27 mmol/L (22-30); Chloride 100 mmol/L (98-107); Creatine Kinase 42 U/L (30-135); Glucose 112 mg/dL (74-99); Lipase 28 U/L (23-300); Magnesium 1.9 mg/dL (1.6-2.3); Non-African American GFR(CKD) >90 (>60 ml/min/1.73 sqM); Potassium 4.4 mmol/L (3.5-5.1); Sodium 134 mmol/L (137-145); Total Bilirubin 0.6 mg/dL (0.2-1.3); Total Protein 6.3 g/dL (6.3-8.2)
--- NOTE | 2023-05-31 15:52 | XR ---
EXAMINATION TYPE: XR chest 2V DATE OF EXAM: 05/31/2023 COMPARISON: 05/05/22 HISTORY: Shortness of breath TECHNIQUE: Frontal and lateral views of the chest are obtained. FINDINGS: Scattered senescent parenchymal changes noted. Hyperinflation compatible with COPD. No evidence for infiltrate. No evidence for atelectasis. Heart size is stable. Mediastinal structures are stable and grossly unremarkable. No evidence for hilar prominence. Degenerative changes dorsal spine. IMPRESSION: 1. No evidence for acute pulmonary disease.
--- NOTE | 2023-05-31 15:53 | XR ---
EXAMINATION TYPE: XR KUB DATE OF EXAM: 05/31/2023 Comparison: None Clinical History: 53-year-old female Abdominal pain Findings: Posterior and interbody lower lumbar fusion. Right-sided generator device with a right-sided sacral s timulator. Chest reported separately. No evidence for free intraperitoneal air. Cholecystectomy clips. No dilated small bowel or air-fluid levels. Scattered mild stool. No suspicious calcifications are identified. Impression: No evidence for free air or bowel obstruction. Mild scattered stool.
[2023-05-31] MEDS ORDERED: cefTRIAXone IN SWFI 1,000 MG/10 ML SYRINGE IVP STA (16:44)
[2023-05-31] MEDS ORDERED: MORPHINE SULFATE 4 MG/ML SYRINGE IVP STA (17:08)
[2023-05-31] MEDS ORDERED: ONDANSETRON 4 MG/2 ML VIAL IVP STA (17:08)
[2023-05-31] MEDS ORDERED: fentaNYL (PF) 50 MCG/ML 2 ML AMP IV STA (17:41)
[2023-05-31] MEDS ORDERED: SODIUM CHLORIDE 0.9% 1,000 ML IV STA (17:42)
[2023-05-31] MEDS ORDERED: NALOXONE 0.4 MG/ML 1 ML VIAL IV PRN (19:46)
[2023-05-31] MEDS ORDERED: ACETAMINOPHEN TAB 325 MG TAB PO PRN (19:46)
[2023-05-31] MEDS ORDERED: ALPRAZolam 0.5 MG TAB PO PRN (19:49)
[2023-05-31] MEDS ORDERED: NON FORMULARY DRUG (Naloxone Hcl [Narcan] 4 MG Each) NASAL PRN (19:49)
[2023-05-31] MEDS ORDERED: ALBUTEROL NEBULIZED 2.5 MG/3 ML INHALATION PRN (19:49)
[2023-05-31] MEDS ORDERED: AMITRIPTYLINE HCL 50 MG TAB PO SCH (21:00)
[2023-05-31] MEDS ORDERED: traZODone HCL 100 MG TAB PO SCH (21:00)
[2023-05-31] MEDS ORDERED: HYDROCORTISONE 10 MG TAB PO SCH (21:00)
[2023-05-31] MEDS ORDERED: ETODOLAC 400 MG TAB PO PRN (22:00)
[2023-05-31] MEDS: MORPHINE SULFATE ER 15 MG TABLET PO SCH (22:19)
[2023-05-31] MEDS: DULoxetine HCL 60 MG CAPSULE.DR PO SCH (22:19)
[2023-05-31] MEDS: APIXABAN 5 MG TAB PO SCH (22:20)
[2023-05-31] MEDS: oxyCODONE-APAP 10-325MG 1 EACH TAB PO SCH (22:20)
[2023-05-31] MEDS: PREGABALIN 100 MG CAP PO SCH (22:21)
[2023-05-31] MEDS: SODIUM CHLORIDE 0.9% 1,000 ML IV SCH (22:22)
[2023-06-01 02:31] VITALS: RESP 18
[2023-06-01] MEDS: SODIUM CHLORIDE 0.9% 1,000 ML IV SCH (04:12)
[2023-06-01] MEDS ORDERED: LEVOTHYROXINE 100 MCG TAB PO SCH (06:30)
[2023-06-01] MEDS ORDERED: PANTOPRAZOLE 40 MG TABLET PO SCH (07:30)
[2023-06-01] MEDS ORDERED: NON FORMULARY DRUG (Phentermine Hcl [Adipex-P] 37.5 MG Tablet) PO SCH (07:30)
[2023-06-01] MEDS ORDERED: FORMOTEROL FUMARATE 20 MCG/2 ML NEBU INHALATION SCH (08:00)
[2023-06-01 08:16] VITALS: BP 101/67; TEMP 97.7
[2023-06-01] MEDS: APIXABAN 5 MG TAB PO SCH (08:30)
[2023-06-01] MEDS: DULoxetine HCL 60 MG CAPSULE.DR PO SCH (08:32)
[2023-06-01] MEDS: MORPHINE SULFATE ER 15 MG TABLET PO SCH (08:34)
[2023-06-01] MEDS: oxyCODONE-APAP 10-325MG 1 EACH TAB PO SCH (08:35)
[2023-06-01] MEDS: PREGABALIN 100 MG CAP PO SCH (08:35)
[2023-06-01] MEDS: IPRATROPIUM 0.5 MG/2.5 ML NEBU INHALATION SCH ×2 (08:50→11:52)
[2023-06-01] MEDS ORDERED: buPROPion XL 300 MG TAB.ER.24H PO SCH (09:00)
[2023-06-01] MEDS ORDERED: HYDROCORTISONE 20 MG TAB PO SCH (09:00)
[2023-06-01] MEDS ORDERED: CALCIUM CARBONATE 500 MG CHEWABLE PO SCH (09:00)
[2023-06-01] MEDS ORDERED: MELOXICAM 7.5 MG TAB PO SCH ×2 (09:00)
[2023-06-01] MEDS ORDERED: MULTIVITAMINS, THERA 1 EACH TAB PO SCH (09:00)
[2023-06-01] MEDS ORDERED: ASCORBIC ACID 500 MG TAB PO SCH (09:00)
[2023-06-01] MEDS ORDERED: cefTRIAXone IN SWFI 1,000 MG/10 ML SYRINGE IVP SCH (09:00)
[2023-06-01] MEDS ORDERED: NON FORMULARY DRUG (Cariprazine Hcl [Vraylar] 1.5 MG Capsule) PO SCH (09:00)
[2023-06-01 09:18] VITALS: PULSE 88
--- NOTE | 2023-06-01 13:04 | P.HPIM ---
History of Present Illness H&P Date: 06/01/23 Chief Complaint: Worsening dysuria, fevers, History and Physical and Discharge Summary: Karlos Rojo is a 53 yo F with past medical history hx significant for UTI with sepsis, MS, chronic back pain, hx lumbar surgery, fibromyalgia gastroesophageal reflux disease, COPD and multiple other medical issues presented to the ER per direction of PCP's office secondary to complaints of nightly fevers, chills, dysuria worsening, nauseated, abdominal cramps accompanied by decreased oral intake, lightheadedness with exertion over the last 2 weeks. Denies chest pain, palpitations or shortness of breath. Afebrile, CBC 14.8, hemoglobin 13.9, platelets 253. Sodium 134, potassium 4.4, bicarb 27, BUN 12, creatinine 0.9, glucose 112. UA reported occasional bacteria, few WBC clumps, 62 WBCs, large leukocytes and negative nitrates. chest x-ray reported no acute pulmonary process. EKG reported sinus rhythm, troponin negative 1. KUB reported no evidence for free air or bowel obstruction, mild scattered stool. Received IV fluid hydration with initiation of IV antibiotic ceftriaxone. Significant clinical improvement. Systolic blood pressures in the low 100s/MAP mean arterial pressure high 70s, maintaining O2 sats in the 90s on room air. Ambula ting in room, Denies lightheadedness dizziness or focal deficits. Spontaneously voiding without difficulty, without pain. Denies nausea vomiting or diarrhea. Review of Systems ROS Statement: Those systems with pertinent positive or pertinent negative responses have been documented in the HPI. ROS Other: All systems not noted in ROS Statement are negative. Past Medical History Past Medical History: Asthma, Blood Disorder, Heart Failure, COPD, Deep Vein Thrombosis (DVT), Eye Disorder, Fibromyalgia, GERD/Reflux, Hearing Disorder / Deafness, Hyperlipidemia, Memory Impairment, Musculoskeletal Disorder, Neurologic Disorder, Osteoarthritis (OA), Pneumonia, Renal Disease, Skin Disorder, Sleep Apnea/CPAP/BIPAP, Syncope, Thyroid Disorder Additional Past Medical History / Comment(s): Multiple sclerosis, factor 5 leiden, RUBI-no device, DVT L leg 2014, hiatal hernia, hoarseness/leukoplakia, adrenal insufficiency/chronic steroid use/pituitary tumor, migraines, DJD, chronic back pain, bursitis, optic neuritis bilaterally, glaucoma , tinnitis, rosacea, insomnia, hypersomnia. bilat CTS, peripheral neuropathy, vertigo. hx infection at back surgery site. History of Any Multi-Drug Resistant Organisms: None Reported Date of last positivie culture/infection: 2013 MDRO Source:: stomach Past Surgical History: Back Surgery, Bladder Surgery, Section, Cholecystectomy, Tubal Ligation Additional Past Surgical History / Comment(s): 09/24/18 bladder stimulator, redone 09/2020. 02/05/19 microlarygoscopy/bx, vocal cord polypectomies, cervical bx, bladder suspension, EGD with bx, colonoscopy,. Laminectomy w/ decompression (01/09/20), Drainage of seroma back (02/02/20), removal spinal hardware, I&D back wound,. PICC line. Past Anesthesia/Blood Transfusion Reactions: Motion Sickness Additional Past Anesthesia/Blood Transfusion Reaction / Comment(s): occasional bad headaches. Past Psychological History: ADD/ADHD, Anxiety, Depression Additional Psychological History / Comment(s): . Smoking Status: Current every day smoker Past Alcohol Use History: None Reported Additional Past Alcohol Use History / Comment(s): 1 ppd smoker since 1981---has cut back to 1/2 ppd Past Drug Use History: None Reported Additional Drug Use History / Comment(s): occ marijuana use- - Past Family History Brother(s) Family Medical History: Deep Vein Thrombosis (DVT) Father Family Medical History: Deep Vein Thrombosis (DVT) Additional Family Medical History / Comment(s): Patient states that her father has no cardiac history but his father had previous OK's. Mother Family Medical History: Cancer, Deep Vein Thrombosis (DVT), Pulmonary Embolus Additional Family Medical History / Comment(s): Cervical cancer. Medications and Allergies Home Medications Medication Instructions Recorded Confirmed Type DULoxetine HCL [Cymbalta] 60 mg PO BID 04/01/19 05/31/23 History ondansetron HCL [Zofran] 4 - 8 mg PO DAILY PRN 12/03/19 05/31/23 History traZODone HCL 100 mg PO HS 12/03/19 05/31/23 History Apixaban [Eliquis] 5 mg PO Q12H 12/17/19 05/31/23 History Hydrocortisone [Cortef] 20 mg PO DAILY 10/07/20 05/31/23 History Morphine Sulfate ER [Ms Contin] 15 mg PO Q12H 10/07/20 05/31/23 History Hydrocortisone [Cortef] 10 mg PO HS 04/26/21 05/31/23 History Acetaminophen [Tylenol] 975 mg PO Q8H PRN 05/05/22 05/31/23 History Albuterol Sulfate [Proair Hfa] 2 puff INHALATION RT-Q6H PRN 05/05/22 05/31/23 History Amitriptyline HCl [Elavil] 100 mg PO HS 05/05/22 05/31/23 History Ergocalciferol [Vitamin D2 (1250 1,250 mcg PO MO 05/05/22 05/31/23 History Mcg = 47657 Iu)] Omeprazole 20 mg PO DAILY 05/05/22 05/31/23 History buPROPion XL [Wellbutrin XL] 300 mg PO DAILY 05/05/22 05/31/23 History ALPRAZolam [Xanax] 0.5 mg PO TID PRN 05/31/23 05/31/23 History Ascorbic Acid [Vitamin C] 1,000 mg PO DAILY 05/31/23 05/31/23 History Calcium Carbonate [Calcium] 600 mg PO DAILY 05/31/23 05/31/23 History Cariprazine HCl [Vraylar] 1.5 mg PO DAILY 05/31/23 05/31/23 History Celecoxib [CeleBREX] 200 mg PO DAILY 05/31/23 05/31/23 History Ketorolac [Toradol] 10 mg PO Q6HR PRN 05/31/23 05/31/23 History Levothyroxine Sodium [Synthroid] 100 mcg PO DAILY 05/31/23 05/31/23 History Meloxicam [Mobic] 15 mg PO DAILY 05/31/23 05/31/23 History Multivitamins, Thera [Multivitamin 1 tab PO DAILY 05/31/23 05/31/23 History (formulary)] Naloxone HCl [Narcan] 4 mg NASAL ONCE PRN 05/31/23 05/31/23 History Orphenadrine Citrate [Orphenadrine 100 mg PO BID PRN 05/31/23 05/31/23 History Citrate ER] Phentermine HCl [Adipex-P] 37.5 mg PO AC-BRKFST 05/31/23 05/31/23 History Pregabalin [Lyrica] 200 mg PO TID 05/31/23 05/31/23 History Semaglutide [Ozempic] 1 mg SQ MO 05/31/23 05/31/23 History Tiotropium Br/Olodaterol HCl 2 puff INHALATION RT-DAILY 05/31/23 05/31/23 H istory [Stiolto Respimat Inhal [place]] Varenicline [Chantix Starter Pack] See Taper PO DIRECTED 05/31/23 05/31/23 History metroNIDAZOLE 0.75% CREAM 1 applic TOPICAL HS 05/31/23 05/31/23 History [Metrocream 0.75%] oxyCODONE-APAP 10-325MG [Percocet 1 tab PO TID 05/31/23 05/31/23 History 10-325 mg] Cephalexin [Keflex] 500 mg PO Q8HR 2 Days #6 cap 06/01/23 Rx Allergies Allergy/AdvReac Type Severity Reaction Status Date / Time amoxicillin [From Augmentin] Allergy Diarrhea, Verified 05/31/23 14:53 hives clavulanic acid Allergy Diarrhea, Verified 05/31/23 14:53 [From Augmentin] hives doxycycline Allergy Rash/Hives Verified 05/31/23 14:52 glatiramer (copolymer 1) Allergy Rapid Verified 05/31/23 14:52 [From Copaxone] Heart Rate,hives, skin flushing sulfamethoxazole Allergy blisters Verified 05/31/23 14:52 [From Bactrim] in mouth, rash/hives trimethoprim [From Bactrim] Allergy blisters Verified 05/31/23 14:52 in mouth, rash/hives steroids AdvReac genital Uncoded 05/31/23 12:52 burning & rashes but still takes steroids. Physical Exam Vitals: Vital Signs Temp Pulse Pulse Resp BP BP Pulse Ox 06/01/23 09:12 88 06/01/23 09:05 86 06/01/23 09:04 86 06/01/23 08:54 87 06/01/23 07:06 97.7 F 74 18 101/67 93 L 06/01/23 01:30 98 F 77 18 91/60 92 L 05/31/23 20:04 98.8 F 87 8 L 90/52 96 05/31/23 18:10 80 18 105/77 05/31/23 17:27 80 18 95/59 94 L 05/31/23 12:49 98.7 F 104 H 18 111/62 96 Intake and Output 05/31/23 06/01/23 06/01/23 22:59 06:59 14:59 Other: Voiding Method Toilet # Voids 2 Weight 106.594 kg General: well nourished, well developed, obese, NAD. Vitals reviewed Eyes: PERRL, EOMI, conjunctiva normal HENT: normocephalic, mucus membranes moist Neck: supple, no JVD Lungs: normal respiratory effort, no wheezes or rales CV: Regular rate and rhythm, no murmur. Peripheral pulses 2+ Abdomen: soft, nondistended, no organomegaly.mild suprapubic tenderness. Lymph: no cervical or axillary LAD Skin: warm and dry. Neuro: A&Ox3, normal mood and affect Results CBC & Chem 7: 05/31/23 14:46 05/31/23 14:46 Labs: Abnormal Lab Results - Last 24 Hours (Table) 05/31/23 05/31/23 05/31/23 Range/Units 14:27 14:46 14:46 WBC 14.8 H (3.8-10.6) k/uL MCV 77.5 L (80.0-100.0) fL RDW 16.5 H (11.5-15.5) % Neutrophils # 12.2 H (1.3-7.7) k/uL Sodium 134 L (137-145) mmol/L Glucose 112 H (74-99) mg/dL Urine Appearance Cloudy H (Clear) Ur Leukocyte Esterase Large H (Negative) Urine WBC 62 H (0-5) /hpf Urine WBC Clumps Few H (None) /hpf Ur Squamous Epith Cells 10 H (0-4) /hpf Amorphous Sediment Rare H (None) /hpf Urine Bacteria Occasional H (None) /hpf Urine Mucus Rare H (None) /hpf Thrombosis Risk Factor Assmnt - Choose All That Apply Any of the Below Risk Factors Present?: Yes Each Factor Represents 1 point: Age 41-60 years, Obesity (BMI >25) Other Risk Factors: Yes Each Risk Factor Represents 3 Points: Positive Factor V Leiden Other congenital or acquired thrombophilia - If yes, enter type in comment: No Thrombosis Risk Factor Assessment Total Risk Factor Score: 5 Thrombosis Risk Factor Assessment Level: High Risk Assessment and Plan Assessment: Final Diagnoses: Acute UTI Dehydration Hypotension secondary to the above, resolved with IV fluid hydration MS Lumbar DDD Discharge Medication List DULoxetine HCL [Cymbalta] 60 mg PO BID 04/01/19 [History] ondansetron HCL [Zofran] 4 - 8 mg PO DAILY PRN 12/03/19 [History] traZODone HCL 100 mg PO HS 12/03/19 [History] Apixaban [Eliquis] 5 mg PO Q12H 12/17/19 [History] Hydrocortisone [Cortef] 20 mg PO DAILY 10/07/20 [History] Morphine Sulfate ER [Ms Contin] 15 mg PO Q12H 10/07/20 [History] Hydrocortisone [Cortef] 10 mg PO HS 04/26/21 [History] Acetaminophen [Tylenol] 975 mg PO Q8H PRN 05/05/22 [History] Albuterol Sulfate [Proair Hfa] 2 puff INHALATION RT-Q6H PRN 05/05/22 [History] Amitriptyline HCl [Elavil] 100 mg PO HS 05/05/22 [History] Ergocalciferol [Vitamin D2 (1250 Mcg = 27629 Iu)] 1,250 mcg PO MO 05/05/22 [History] Omeprazole 20 mg PO DAILY 05/05/22 [History] buPROPion XL [Wellbutrin XL] 300 mg PO DAILY 05/05/22 [History] ALPRAZolam [Xanax] 0.5 mg PO TID PRN 05/31/23 [History] Ascorbic Acid [Vitamin C] 1,000 mg PO DAILY 05/31/23 [History] Calcium Carbonate [Calcium] 600 mg PO DAILY 05/31/23 [History] Cariprazine HCl [Vraylar] 1.5 mg PO DAILY 05/31/23 [History] Celecoxib [CeleBREX] 200 mg PO DAILY 05/31/23 [History] Ketorolac [Toradol] 10 mg PO Q6HR PRN 05/31/23 [History] Levothyroxine Sodium [Synthroid] 100 mcg PO DAILY 05/31/23 [History] Meloxicam [Mobic] 15 mg PO DAILY 05/31/23 [History] Multivitamins, Thera [Multivitamin (formulary)] 1 tab PO DAILY 05/31/23 [History] Naloxone HCl [Narcan] 4 mg NASAL ONCE PRN 05/31/23 [History] Orphenadrine Citrate [Orphenadrine Citrate ER] 100 mg PO BID PRN 05/31/23 [History] Phentermine HCl [Adipex-P] 37.5 mg PO AC-BRKFST 05/31/23 [History] Pregabalin [Lyrica] 200 mg PO TID 05/31/23 [History] Semaglutide [Ozempic] 1 mg SQ MO 05/31/23 [History] Tiotropium Br/Olodaterol HCl [Stiolto Respimat Inhal [place]] 2 puff INHALATION RT-DAILY 05/31/23 [History] Varenicline [Chantix Starter Pack] See Taper PO DIRECTED 05/31/23 [History] metroNIDAZOLE 0.75% CREAM [Metrocream 0.75%] 1 applic TOPICAL HS 05/31/23 [History] oxyCODONE-APAP 10-325MG [Percocet 10-325 mg] 1 tab PO TID 05/31/23 [History] Cephalexin [Keflex] 500 mg PO Q8HR 2 Days #6 cap 06/01/23 [Rx] Plan continue on current medication regime ,monitoring and symptomatic carie atment. Maintain IV antibiotics this morning then proceed with discharge planning on oral antibiotics 2 more days. Significant clinical improvement. Patient will be discharged home today in a stable condition with guarded prognosis. The impression and plan of care has been dictated as directed. : I performed a history and examination of this patient, discussed the same with the dictator. I agree with the dictator's note ,documented as a scribe. Any additional findings or plans will be noted.
[2023-06-04] MEDS ORDERED: NON FORMULARY DRUG (Semaglutide [Ozempic] 1 MG/0.75 ML Each) SQ SCH (09:00)
[2023-06-04] MEDS ORDERED: ERGOCALCIFEROL 1,250 MCG (50,000 IU) CAPSULE PO SCH (09:00)
== END 2023-06-01 13:18 | disposition home or self-care (01) ==
LOC: EC 12:30 → 4SSUR 19:46
PROVIDERS: ADMIT Family Medicine; ATTEND Family Medicine
DX: N39.0 Urinary tract infection, site not specified (principal); E86.0 Dehydration; I95.9 Hypotension, unspecified; G35 Multiple sclerosis; D68.51 Activated protein C resistance; J44.9 Chronic obstructive pulmonary disease, unspecified; G89.29 Other chronic pain; M51.36 Other intervertebral disc degeneration, lumbar region; E78.5 Hyperlipidemia, unspecified; M79.7 Fibromyalgia; G47.33 Obstructive sleep apnea (adult) (pediatric); K21.9 Gastro-esophageal reflux disease without esophagitis; M19.90 Unspecified osteoarthritis, unspecified site; F17.210 Nicotine dependence, cigarettes, uncomplicated; K44.9 Diaphragmatic hernia without obstruction or gangrene; G43.909 Migraine, unspecified, not intractable, without status migrainosus; D35.2 Benign neoplasm of pituitary gland; E27.40 Unspecified adrenocortical insufficiency; G56.03 Carpal tunnel syndrome, bilateral upper limbs; G62.9 Polyneuropathy, unspecified; E66.9 Obesity, unspecified; Z68.35 Body mass index [BMI] 35.0-35.9, adult; H91.90 Unspecified hearing loss, unspecified ear; L71.9 Rosacea, unspecified; H40.9 Unspecified glaucoma; R41.3 Other amnesia; F32.A Depression, unspecified; F41.9 Anxiety disorder, unspecified; F90.9 Attention-deficit hyperactivity disorder, unspecified type; Z79.01 Long term (current) use of anticoagulants; Z79.899 Other long term (current) drug therapy; Z79.890 Hormone replacement therapy; Z79.1 Long term (current) use of non-steroidal anti-inflammatories (NSAID); Z79.85 Long-term (current) use of injectable non-insulin antidiabetic drugs; Z88.1 Allergy status to other antibiotic agents; Z88.0 Allergy status to penicillin; Z88.2 Allergy status to sulfonamides; Z88.8 Allergy status to other drugs, medicaments and biological substances; Z87.440 Personal history of urinary (tract) infections; Z86.19 Personal history of other infectious and parasitic diseases; Z86.718 Personal history of other venous thrombosis and embolism; Z90.49 Acquired absence of other specified parts of digestive tract; Z98.51 Tubal ligation status; Z98.891 History of uterine scar from previous surgery; Z96.0 Presence of urogenital implants; Z98.890 Other specified postprocedural states; Z82.49 Family history of ischemic heart disease and other diseases of the circulatory system; Z80.49 Family history of malignant neoplasm of other genital organs
CPT/HCPCS: 96365; 96366; 96376; 96375; 99285; 36415; 94640 ×2; 93005; 80053; 82550; 83605; 83690; 83735; 84484; 85025; 81001; 87040; 71046; 74018; G0378 ×2; J2405; J0696 ×2; J3010

== ENCOUNTER 2023-07-03 17:06 | Inpatient (IN) | payer MEDICARE, OTHER ==
[2023-07-03 18:17] LABS: Basophils # (A) 0.1 k/uL (0-0.2); Basophils % (A) 0 %; Eosinophils # (A) 0.4 k/uL (0-0.7); Eosinophils % (A) 2 %; HGB 14.5 gm/dL (11.4-16.0); Lymphocytes # (A) 3.4 k/uL (1.0-4.8); Lymphocytes % (A) 21 %; MCH 26.3 pg (25.0-35.0); MCHC 33.8 g/dL (31.0-37.0); MCV 77.9 fL (80.0-100.0); Microcytosis Slight; Monocytes # (A) 0.7 k/uL (0-1.0); Monocytes % (A) 4 %; Neutrophils # (A) 11.5 k/uL (1.3-7.7); Neutrophils % (A) 71 %; Platelet Count 338 k/uL (150-450); RBC 5.52 m/uL (3.80-5.40); RDW 15.8 % (11.5-15.5); WBC 16.2 k/uL (3.8-10.6)
[2023-07-03 18:27] LABS: ALT 20 U/L (4-34); AST 26 U/L (14-36); African American GFR (CKD) >90 (>60 ml/min/1.73 sqM); Albumin 4.3 g/dL (3.5-5.0); Alkaline Phosphatase 76 U/L (38-126); Anion Gap 10 mmol/L; Blood Urea Nitrogen 17 mg/dL (7-17); Calcium 9.5 mg/dL (8.4-10.2); Carbon Dioxide 26 mmol/L (22-30); Chloride 102 mmol/L (98-107); Glucose 98 mg/dL (74-99); Non-African American GFR(CKD) >90 (>60 ml/min/1.73 sqM); Sodium 138 mmol/L (137-145); Total Bilirubin 0.4 mg/dL (0.2-1.3); Total Protein 6.6 g/dL (6.3-8.2)
--- NOTE | 2023-07-03 19:13 | ED ---
General Adult HPI - General Chief complaint: Urogenital Stated complaint: septic uti Time Seen by Provider: 07/03/23 19:12 Source: patient, RN notes reviewed Mode of arrival: ambulatory Limitations: no limitations - History of Present Illness Initial comments: 53-year-old female presents emergency Department with chief complaint of UTI. Patient states she has resistant organism, she states that her urine culture grew out E. coli but resistant to multiple antibiotics she states that they did try one oral antibiotic recently that was susceptible but patient had worsening symptoms. Patient was sent by PCP. Patient states she's had symptoms for over 2 months. - Related Data Home Medications Medication Instructions Recorded Confirmed DULoxetine HCL [Cymbalta] 60 mg PO BID 04/01/19 07/03/23 traZODone HCL 100 mg PO HS 12/03/19 07/03/23 Apixaban [Eliquis] 5 mg PO Q12H 12/17/19 07/03/23 Hydrocortisone [Cortef] 20 mg PO DAILY 10/07/20 07/03/23 Morphine Sulfate ER [Ms Contin] 15 mg PO Q12H 10/07/20 07/03/23 Hydrocortisone [Cortef] 10 mg PO HS 04/26/21 07/03/23 Acetaminophen [Tylenol] 975 mg PO Q8H PRN 05/05/22 07/03/23 Albuterol Sulfate [Proair Hfa] 2 puff INHALATION RT-Q6H PRN 05/05/22 07/03/23 Amitriptyline HCl [Elavil] 100 mg PO HS 05/05/22 07/03/23 Ergocalciferol [Vitamin D2 (1250 1,250 mcg PO MO 05/05/22 07/03/23 Mcg = 78533 Iu)] Omeprazole 20 mg PO DAILY 05/05/22 07/03/23 buPROPion XL [Wellbutrin XL] 300 mg PO DAILY 05/05/22 07/03/23 ALPRAZolam [Xanax] 0.5 mg PO TID PRN 05/31/23 07/03/23 Ascorbic Acid [Vitamin C] 1,000 mg PO DAILY 05/31/23 07/03/23 Calcium Carbonate [Calcium] 600 mg PO DAILY 05/31/23 07/03/23 Cariprazine HCl [Vraylar] 1.5 mg PO DAILY 05/31/23 07/03/23 Celecoxib [CeleBREX] 200 mg PO DAILY 05/31/23 07/03/23 Ketorolac [Toradol] 10 mg PO Q6HR PRN 05/31/23 07/03/23 Levothyroxine Sodium [Synthroid] 100 mcg PO DAILY 05/31/23 07/03/23 Meloxicam [Mobic] 15 mg PO DAILY 05/31/23 07/03/23 Multivitamins, Thera [Multivitamin 1 tab PO DAILY 05/31/23 07/03/23 (formulary)] Naloxone HCl [Narcan] 4 mg NASAL ONCE PRN 05/31/23 07/03/23 Orphenadrine Citrate [Orphenadrine 100 mg PO BID PRN 05/31/23 07/03/23 Citrate ER] Phentermine HCl [Adipex-P] 37.5 mg PO AC-BRKFST 05/31/23 07/03/23 Pregabalin [Lyrica] 200 mg PO TID 05/31/23 07/03/23 Semaglutide [Ozempic] 1 mg SQ MO 05/31/23 07/03/23 Tiotropium Br/Olodaterol HCl 2 puff INHALATION RT-DAILY 05/31/23 07/03/23 [Stiolto Respimat Inhal [place]] Varenicline [Chantix Starter Pack] See Taper PO DIRECTED 05/31/23 07/03/23 metroNIDAZOLE 0.75% CREAM 1 applic TOPICAL HS 05/31/23 07/03/23 [Metrocream 0.75%] oxyCODONE-APAP 10-325MG [Percocet 1 tab PO TID 05/31/23 07/03/23 10-325 mg] Fluconazole [Diflucan] 150 mg PO Q48H 07/03/23 07/03/23 ondansetron HCL [Zofran] 8 mg PO Q8HR PRN 07/03/23 07/03/23 Allergies Allergy/AdvReac Type Severity Reaction Status Date / Time amoxicillin [From Augmentin] Allergy Diarrhea, Verified 05/31/23 14:53 hives clavulanic acid Allergy Diarrhea, Verified 05/31/23 14:53 [From Augmentin] hives doxycycline Allergy Rash/Hives Verified 05/31/23 14:52 glatiramer (copolymer 1) Allergy Rapid Verified 05/31/23 14:52 [From Copaxone] Heart Rate,hives, skin flushing sulfamethoxazole Allergy blisters Verified 05/31/23 14:52 [From Bactrim] in mouth, rash/hives trimethoprim [From Bactrim] Allergy blisters Verified 05/31/23 14:52 in mouth, rash/hives steroids AdvReac genital Uncoded 05/31/23 12:52 burning & rashes but still takes steroids. Review of Systems ROS Statement: Those systems with pertinent positive or pertinent negative responses have been documented in the HPI. ROS Other: All systems not noted in ROS Statement are negative. Past Medical History Past Medical History: Asthma, Blood Disorder, Heart Failure, COPD, Deep Vein Thrombosis (DVT), Eye Disorder, Fibromyalgia, GERD/Reflux, Hearing Disorder / Deafness, Hyperlipidemia, Memory Impairment, Musculoskeletal Disorder, Neurologic Disorder, Osteoarthritis (OA), Pneumonia, Renal Disease, Skin Disorder, Sleep Apnea/CPAP/BIPAP, Syncope, Thyroid Disorder Additional Past Medical History / Comment(s): Multiple sclerosis, factor 5 [place], RUBI-no device, DVT L leg 2013, hiatal hernia, hoarseness/leukoplakia, adrenal insufficiency/chronic steroid use/pituitary tumor, migraines, DJD, chronic back pain, bursitis, optic neuritis bilaterally, glaucoma , tinnitis, rosacea, insomnia, hypersomnia. bilat CTS, peripheral neuropathy, vertigo. hx infection at back surgery site. History of Any Multi-Drug Resistant Organisms: None Reported Date of last positivie culture/infection: 2013 MDRO Source:: stomach Past Surgical History: Back Surgery, Bladder Surgery, Section, Cholecystectomy, Tubal Ligation Additional Past Surgical History / Comment(s): 09/24/18 bladder stimulator, redone 09/2020. 02/05/19 microlarygoscopy/bx, vocal cord polypectomies, cervical bx, bladder suspension, EGD with bx, colonoscopy,. Laminectomy w/ decompression (01/09/20), Drainage of seroma back (02/02/20), removal spinal hardware, I&D back wound,. PICC line. Past Anesthesia/Blood Transfusion Reactions: Motion Sickness Additional Past Anesthesia/Blood Transfusion Reaction / Comment(s): occasional bad headaches. Past Psychological History: ADD/ADHD, Anxiety, Depression Smoking Status: Current every day smoker Past Alcohol Use History: None Reported Past Drug Use History: None Reported - Past Family History Brother(s) Family Medical History: Deep Vein Thrombosis (DVT) Father Family Medical History: Deep Vein Thrombosis (DVT) Additional Family Medical History / Comment(s): Patient states that her father has no cardiac history but his father had previous HI's. Mother Family Medical History: Cancer, Deep Vein Thrombosis (DVT), Pulmonary Embolus Additional Family Medical History / Comment(s): Cervical cancer. General Exam - General Exam Comments Initial Comments: Visual Physical Exam Vital signs reviewed General: Well-appearing, nontoxic, no acute distress. Head: Normocephalic, atraumatic Eyes: PERRLA, EOMI ENT: Airway patent Chest: Nonlabored breathing Skin: No visual rash, normal skin tone Neuro: Alert and oriented 3 Musculoskeletal: No gross abnormalities Limitations: no limitations General appearance: alert, in no apparent distress Head exam: Present: atraumatic, normocephalic, normal inspection Eye exam: Present: normal appearance, PERRL, EOMI. Absent: scleral icterus, conjunctival injection, periorbital swelling ENT exam: Present: normal exam, mucous membranes moist Respiratory exam: Present: normal lung sounds bilaterally. Absent: respiratory distress, wheezes, rales, rhonchi, stridor Cardiovascular Exam: Present: regular rate, normal rhythm, normal heart sounds. Absent: systolic murmur, diastolic murmur, rubs, gallop, clicks GI/Abdominal exam: Present: soft, tenderness, normal bowel sounds. Absent: distended, guarding, rebound, rigid Back exam: Absent: CVA tenderness (R), CVA tenderness (L) Course Vital Signs 07/03/23 17:36 Temperature 98 F Pulse Rate 55 L Respiratory 16 Rate Blood Pressure 100/60 O2 Sat by Pulse 98 Oximetry Medical Decision Making - Medical Decision Making I completed the quick note portion of this chart signed Por Hwang PA-C Was pt. sent in by a medical professional or institution ([facility], EMERGENCY DOCTOR, urgent care, hospital, or fpc...) When possible be specific @ -PCP Did you speak to anyone other than the patient for history (EMS, parent, family, police, friend...)? What history was obtained from this source @ -No Did you review nursing and triage notes (agree or disagree)? Why? @ -I reviewed and agree with nursing and triage notes Were old charts reviewed (outside hosp., previous admission, EMS record, old EKG, old radiological studies, urgent care reports/EKG's, fpc records)? Report findings @ -No old charts were reviewed Differential Diagnosis (chest pain, altered mental status, abdominal pain women, abdominal pain men, vaginal bleeding, weakness, fever, dyspnea, syncope, headache, dizziness, GI bleed, back pain, seizure, CVA, palpatations, mental health, musculoskeletal)? @ -UTI, pyelonephritis, EKG interpreted by me (3pts min.). @ -None X-rays interpreted by me (1pt min.). @ -None done CT interpreted by me (1pt min.). @ -None done U/S interpreted by me (1pt. min.). @ -None done What testing was considered but not performed or refused? (CT, X-rays, U/S, labs)? Why? @ -None What meds were considered but not given or refused? Why? @ -None Did you discuss the management of the patient with other professionals (professionals i.e. , PA, EMERGENCY DOCTOR, lab, RT, psych nurse, social science instructor, after school driver, teacher, information assurance officer, case therapist)? Give summary @ -[Dr. Palomino for admission given evidence of persistent UTI, ESBL Was smoking cessation discussed for >3mins.? @ -No Was critical care preformed (if so, how long)? @ -No Were there social determinants of health that impacted care today? How? (Homelessness, low income, unemployed, alcoholism, drug addiction, transportation, low edu. Level, literacy, decrease access to med. care, senior care, rehab)? @ -No Was there de-escalation of care discussed even if they declined (Discuss DNR or withdrawal of care, Hospice)? DNR status @ -No What co-morbidities impacted this encounter? (DM, HTN, Smoking, COPD, CAD, Cancer, CVA, ARF, Chemo, Hep., AIDS, mental health diagnosis, sleep apnea, morbid obesity)? @ -None Was patient admitted / discharged? Hospital course, mention meds given and route, prescriptions, significant lab abnormalities, going to OR and other pertinent info. @ -Admitted patient has evidence of ESBL UTI patient is admitted to primary care physician recommended meropenem with ID consult Undiagnosed new problem with uncertain prognosis? @ -No Drug Therapy requiring intensive monitoring for toxicity (Heparin, Nitro, Insulin, Cardizem)? @ -No Were any procedures done? @ -No Diagnosis/symptom? @ -UTI, ESBL Acute, or Chronic, or Acute on Chronic? @ -Acute Uncomplicated (without systemic symptoms) or Complicated (systemic symptoms)? @ -Complicated Side effects of treatment? @ -No Exacerbation, Progression, or Severe Exacerbation? @ -No Poses a threat to life or bodily function? How? (Chest pain, USA, HI, pneumonia, PE, COPD, DKA, ARF, appy, cholecystitis, CVA, Diverticulitis, Homicidal, Suicidal, threat to staff... and all critical care pts) @ -No - Lab Data Result diagrams: 07/03/23 17:54 07/03/23 17:54 Lab Results 07/03/23 07/03/23 07/03/23 Range/Units 17:54 17:54 18:53 WBC 16.2 H (3.8-10.6) k/uL RBC 5.52 H (3.80-5.40) m/uL Hgb 14.5 (11.4-16.0) gm/dL Hct 43.0 (34.0-46.0) % MCV 77.9 L (80.0-100.0) fL MCH 26.3 (25.0-35.0) pg MCHC 33.8 (31.0-37.0) g/dL RDW 15.8 H (11.5-15.5) % Plt Count 338 (150-450) k/uL MPV 8.0 Neutrophils % 71 % Lymphocytes % 21 % Monocytes % 4 % Eosinophils % 2 % Basophils % 0 % Neutrophils # 11.5 H (1.3-7.7) k/uL Lymphocytes # 3.4 (1.0-4.8) k/uL Monocytes # 0.7 (0-1.0) k/uL Eosinophils # 0.4 (0-0.7) k/uL Basophils # 0.1 (0-0.2) k/uL Microcytosis Slight Sodium 138 (137-145) mmol/L Potassium 4.0 (3.5-5.1) mmol/L Chloride 102 (98-107) mmol/L Carbon Dioxide 26 (22-30) mmol/L Anion Gap 10 mmol/L BUN 17 (7-17) mg/dL Creatinine 0.76 (0.52-1.04) mg/dL Est GFR (CKD-EPI)AfAm >90 (>60 ml/min/1.73 sqM) Est GFR (CKD-EPI)NonAf >90 (>60 ml/min/1.73 sqM) Glucose 98 (74-99) mg/dL Calcium 9.5 (8.4-10.2) mg/dL Total Bilirubin 0.4 (0.2-1.3) mg/dL AST 26 (14-36) U/L ALT 20 (4-34) U/L Alkaline Phosphatase 76 (38-126) U/L Total Protein 6.6 (6.3-8.2) g/dL Albumin 4.3 (3.5-5.0) g/dL Urine Color Brown Urine Appearance Turbid H (Clear) Urine pH 5.0 (5.0-8.0) Ur Specific [place] 1.025 (1.001-1.035) Urine Protein 1+ H (Negative) Urine Glucose (UA) Negative (Negative) Urine Ketones Negative (Negative) Urine Blood Small H (Negative) Urine Nitrite Positive H (Negative) Urine Bilirubin Negative (Negative) Urine Urobilinogen 2.0 (<2.0) mg/dL Ur Leukocyte Esterase Large H (Negative) Urine RBC 38 H (0-5) /hpf Urine WBC >182 H (0-5) /hpf Urine WBC Clumps Many H (None) /hpf Ur Squamous Epith Cells 24 H (0-4) /hpf Urine Bacteria Occasional H (None) /hpf Hyaline Casts 38 H (0-2) /lpf Urine Mucus Many H (None) /hpf Disposition Clinical Impression: UTI due to extended-spectrum beta lactamase (ESBL) producing Escherichia coli Disposition: ADMITTED IP TO THIS HOSP Condition: Fair Time of Disposition: 21:50
[2023-07-03 19:19] LABS: Appearance,Urine Turbid (Clear); Bacteria,Urine Occasional /hpf; Bilirubin,Urine Negative (Negative); Blood,Urine Small (Negative); Color,Urine Brown; Glucose,Urine (UA) Negative (Negative); Hyaline Casts,Urine 38 /lpf (0-2); Ketones,Urine Negative (Negative); Leukocyte Esterase,Urine Large (Negative); Mucus,Urine Many /hpf; Nitrite,Urine Positive (Negative); Protein,Urine 1+ (Negative); RBC,Urine 38 /hpf (0-5); Specific Gravity,Urine 1.025 (1.001-1.035); Squamous Epithelial Cell,Urine 24 /hpf (0-4); WBC,Urine >182 /hpf (0-5)
[2023-07-03] MEDS ORDERED: PHENAZOPYRIDINE 200 MG TAB PO STA (19:31)
[2023-07-03] MEDS ORDERED: PIPERACILLIN-TAZOBACTAM 3.375 GM in SODIUM CHLORIDE 0.9% 100 ML IVPB STA (20:09)
[2023-07-03] MEDS ORDERED: NALOXONE 0.4 MG/ML 1 ML VIAL IV PRN (21:50)
[2023-07-03] MEDS: SODIUM CHLORIDE 0.9% 1,000 ML IV SCH (22:29)
[2023-07-03] MEDS: MORPHINE SULFATE ER 15 MG TABLET PO SCH (22:34)
[2023-07-03] MEDS: APIXABAN 5 MG TAB PO SCH (22:34)
[2023-07-03] MEDS: oxyCODONE-APAP 10-325MG 1 EACH TAB PO SCH (22:34)
[2023-07-03] MEDS: PREGABALIN 100 MG CAP PO SCH (22:35)
[2023-07-03] MEDS: MEROPENEM 2 GM in SODIUM CHLORIDE 0.9% 100 ML IVPB SCH (22:47)
[2023-07-04] MEDS: HYDROcodone/APAP 5-325MG 1 EACH TAB PO PRN ×2 (05:41→15:08)
[2023-07-04] MEDS: ALPRAZolam 0.5 MG TAB PO PRN ×2 (05:41→15:07)
[2023-07-04] MEDS: MEROPENEM 2 GM in SODIUM CHLORIDE 0.9% 100 ML IVPB SCH (07:00)
[2023-07-04] MEDS: APIXABAN 5 MG TAB PO SCH ×2 (09:16→20:10)
[2023-07-04] MEDS: buPROPion XL 300 MG TAB.ER.24H PO SCH (09:17)
[2023-07-04] MEDS: DULoxetine HCL 60 MG CAPSULE.DR PO SCH ×2 (09:17→20:10)
[2023-07-04] MEDS: oxyCODONE-APAP 10-325MG 1 EACH TAB PO SCH ×4 (09:17→23:37)
[2023-07-04] MEDS: NON FORMULARY DRUG (Cariprazine Hcl [Vraylar] 1.5 MG Capsule) PO SCH (09:18)
[2023-07-04] MEDS: MORPHINE SULFATE ER 15 MG TABLET PO SCH ×2 (09:25→23:45)
[2023-07-04] MEDS: LEVOTHYROXINE 100 MCG TAB PO SCH (09:25)
[2023-07-04] MEDS: PANTOPRAZOLE 40 MG TABLET PO SCH (09:25)
[2023-07-04] MEDS: PREGABALIN 100 MG CAP PO SCH ×3 (09:26→23:35)
[2023-07-04] MEDS: HYDROCORTISONE 20 MG TAB PO SCH (09:28)
[2023-07-04] MEDS ORDERED: HYDROmorphone 0.5 MG/0.5 ML SYRINGE IVP STA (10:27)
[2023-07-04] MEDS ORDERED: DICYCLOMINE 10 MG CAP PO PRN (10:27)
[2023-07-04] MEDS: SODIUM CHLORIDE 0.9% 1,000 ML IV SCH (10:39)
--- NOTE | 2023-07-04 12:21 | P.HPIM ---
History of Present Illness H&P Date: 07/04/23 Chief Complaint: UTI Karlos Rojo is a 53 yo F with past medical history hx significant for UTI with sepsis, MS, chronic back pain, laminectomy/decompression, fibromyalgia g astroesophageal reflux disease, COPD and multiple other medical issues presented to the ER with complaints of ongoing UTI ,"never improved since last IP admission." History of E. coli 04/20/2022 urine culture resistant to ampicillin, gentamicin and Bactrim . UA from 05/31/2023 reported negative ni trates, large leukocytes, 62 WBCs, few WBC clumps, occasional bacteria and patient was treated with IV antibiotics.Reports she continued to have dysuria chills, sweats, nausea, right flank pain. UA currently reporting positive nitrates, large leukocytes, greater than 100 urine WBCs, many WBC clumps. Urine culture pending. IV antibiotics initiated in the ER. Received IV fluid hydration for soft blood pressures. Afebrile, WBC 16.2, hemoglobin 14.5, platelets 338. Chemistry panel unremarkable. Denies chest pain, palpitations or shortness of breath. Maintaining O2 sats in the high 90s on room air. Review of Systems ROS Statement: Those systems with pertinent positive or pertinent negative responses have been documented in the HPI. ROS Other: All systems not noted in ROS Statement are negative. Past Medical History Past Medical History: Asthma, Blood Disorder, Heart Failure, COPD, Deep Vein Thrombosis (DVT), Eye Disorder, Fibromyalgia, GERD/Reflux, Hearing Disorder / Deafness, Hyperlipidemia, Memory Impairment, Musculoskeletal Disorder, Neurologic Disorder, Osteoarthritis (OA), Pneumonia, Renal Disease, Skin Disorder, Sleep Apnea/CPAP/BIPAP, Syncope, Thyroid Disorder Additional Past Medical History / Comment(s): Multiple sclerosis, factor 5 [place], RUBI-no device, DVT L leg 2013, hiatal hernia, hoarseness/leukoplakia, adrenal insufficiency/chronic steroid use/pituitary tumor, migraines, DJD, chronic back pain, bursitis, optic neuritis bilaterally, glaucoma , tinnitis, rosacea, insomnia, hypersomnia. bilat CTS, peripheral neuropathy, vertigo. hx infection at back surgery site. History of Any Multi-Drug Resistant Organisms: Other MDRO Date of last positivie culture/infection: 2013 MDRO Source:: abdomen Past Surgical History: Back Surgery, Bladder Surgery, Section, Cholecystectomy, Tubal Ligation Additional Past Surgical History / Comment(s): 09/24/18 bladder stimulator, redone 09/2020. 02/05/19 microlarygoscopy/bx, vocal cord polypectomies, cervical bx, bladder suspension, EGD with bx, colonoscopy,. Laminectomy w/ decompression (01/09/20), Drainage of seroma back (02/02/20), removal spinal hardware, I&D back wound,. PICC line. Past Anesthesia/Blood Transfusion Reactions: Motion Sickness Additional Past Anesthesia/Blood Transfusion Reaction / Comment(s): occasional bad headaches. Past Psychological History: ADD/ADHD, Anxiety, Depression Additional Psychological History / Comment(s): . Smoking Status: Current every day smoker Past Alcohol Use History: None Reported Additional Past Alcohol Use History / Comment(s): 1 ppd smoker since 1981---has cut back to 1/2 ppd Past Drug Use History: None Reported Additional Drug Use History / Comment(s): occ marijuana use- - Past Family History Brother(s) Family Medical History: Deep Vein Thrombosis (DVT) Father Family Medical History: Deep Vein Thrombosis (DVT) Additional Family Medical History / Comment(s): Patient states that her father has no cardiac history but his father had previous AK's. Mother Family Medical History: Cancer, Deep Vein Thrombosis (DVT), Pulmonary Embolus Additional Family Medical History / Comment(s): Cervical cancer. Medications and Allergies Home Medications Medication Instructions Recorded Confirmed Type DULoxetine HCL [Cymbalta] 60 mg PO BID 04/01/19 07/03/23 History traZODone HCL 100 mg PO HS 12/03/19 07/03/23 History Apixaban [Eliquis] 5 mg PO Q12H 12/17/19 07/03/23 History Hydrocortisone [Cortef] 20 mg PO DAILY 10/07/20 07/03/23 History Morphine Sulfate ER [Ms Contin] 15 mg PO Q12H 10/07/20 07/03/23 History Hydrocortisone [Cortef] 10 mg PO HS 04/26/21 07/03/23 History Acetaminophen [Tylenol] 975 mg PO Q8H PRN 05/05/22 07/03/23 History Albuterol Sulfate [Proair Hfa] 2 puff INHALATION RT-Q6H PRN 05/05/22 07/03/23 History Amitriptyline HCl [Elavil] 100 mg PO HS 05/05/22 07/03/23 History Ergocalciferol [Vitamin D2 (1250 1,250 mcg PO MO 05/05/22 07/03/23 History Mcg = 01230 Iu)] Omeprazole 20 mg PO DAILY 05/05/22 07/03/23 History buPROPion XL [Wellbutrin XL] 300 mg PO DAILY 05/05/22 07/03/23 History ALPRAZolam [Xanax] 0.5 mg PO TID PRN 05/31/23 07/03/23 History Ascorbic Acid [Vitamin C] 1,000 mg PO DAILY 05/31/23 07/03/23 History Calcium Carbonate [Calcium] 600 mg PO DAILY 05/31/23 07/03/23 History Cariprazine HCl [Vraylar] 1.5 mg PO DAILY 05/31/23 07/03/23 History Celecoxib [CeleBREX] 200 mg PO DAILY 05/31/23 07/03/23 History Ketorolac [Toradol] 10 mg PO Q6HR PRN 05/31/23 07/03/23 History Levothyroxine Sodium [Synthroid] 100 mcg PO DAILY 05/31/23 07/03/23 History Meloxicam [Mobic] 15 mg PO DAILY 05/31/23 07/03/23 History Multivitamins, Thera [Multivitamin 1 tab PO DAILY 05/31/23 07/03/23 History (formulary)] Naloxone HCl [Narcan] 4 mg NASAL ONCE PRN 05/31/23 07/03/23 History Orphenadrine Citrate [Orphenadrine 100 mg PO BID PRN 05/31/23 07/03/23 History Citrate ER] Phentermine HCl [Adipex-P] 37.5 mg PO AC-BRKFST 05/31/23 07/03/23 History Pregabalin [Lyrica] 200 mg PO TID 05/31/23 07/03/23 History Semaglutide [Ozempic] 1 mg SQ MO 05/31/23 07/03/23 History Tiotropium Br/Olodaterol HCl 2 puff INHALATION RT-DAILY 05/31/23 07/03/23 History [Stiolto Respimat Inhal [place]] Varenicline [Chantix Starter Pack] See Taper PO DIRECTED 05/31/23 07/03/23 History metroNIDAZOLE 0.75% CREAM 1 applic TOPICAL HS 05/31/23 07/03/23 History [Metrocream 0.75%] oxyCODONE-APAP 10-325MG [Percocet 1 tab PO TID 05/31/23 07/03/23 History 10-325 mg] Fluconazole [Diflucan] 150 mg PO Q48H 07/03/23 07/03/23 History ondansetron HCL [Zofran] 8 mg PO Q8HR PRN 07/03/23 07/03/23 History Allergies Allergy/AdvReac Type Severity Reaction Status Date / Time amoxicillin [From Augmentin] Allergy Diarrhea, Verified 05/31/23 14:53 hives clavulanic acid Allergy Diarrhea, Verified 05/31/23 14:53 [From Augmentin] hives doxycycline Allergy Rash/Hives Verified 05/31/23 14:52 glatiramer (copolymer 1) Allergy Rapid Verified 05/31/23 14:52 [From Copaxone] Heart Rate,hives, skin flushing sulfamethoxazole Allergy blisters Verified 05/31/23 14:52 [From Bactrim] in mouth, rash/hives trimethoprim [From Bactrim] Allergy blisters Verified 05/31/23 14:52 in mouth, rash/hives steroids AdvReac genital Uncoded 05/31/23 12:52 burning & rashes but still takes steroids. Physical Exam Vitals: Vital Signs Temp Pulse Pulse Resp BP BP Pulse Ox 07/04/23 08:00 100 16 106/66 97 07/04/23 06:50 97.0 F L 97 16 126/66 95 07/04/23 03:05 97.3 F L 94 18 103/66 94 L 07/03/23 17:36 98 F 55 L 16 100/60 98 Intake and Output 07/03/23 07/04/23 07/04/23 22:59 06:59 14:59 Other: Voiding Method Toilet Toilet Diaper Diaper Weight 102.965 kg 102.965 kg General: well nourished, well developed, obese, NAD. Vitals reviewed Eyes: PERRL, EOMI, conjunctiva normal HENT: normocephalic, mucus membranes moist Neck: supple, no JVD Lungs: normal respiratory effort, no wheezes or rales CV: Regular rate and rhythm, no murmur. Peripheral pulses 2+ Abdomen: soft, nondistended, no organomegaly.mild suprapubic tenderness, right mid back m[place]ullen. Skin: warm and dry. Neuro: A&Ox3, normal mood and affect Results CBC & Chem 7: 07/03/23 17:54 07/03/23 17:54 Labs: Abnormal Lab Results - Last 24 Hours (Table) 07/03/23 07/03/23 Range/Units 17:54 18:53 WBC 16.2 H (3.8-10.6) k/uL RBC 5.52 H (3.80-5.40) m/uL MCV 77.9 L (80.0-100.0) fL RDW 15.8 H (11.5-15.5) % Neutrophils # 11.5 H (1.3-7.7) k/uL Urine Appearance Turbid H (Clear) Urine Protein 1+ H (Negative) Urine Blood Small H (Negative) Urine Nitrite Positive H (Negative) Ur Leukocyte Esterase Large H (Negative) Urine RBC 38 H (0-5) /hpf Urine WBC >182 H (0-5) /hpf Urine WBC Clumps Many H (None) /hpf Ur Squamous Epith Cells 24 H (0-4) /hpf Urine Bacteria Occasional H (None) /hpf Hyaline Casts 38 H (0-2) /lpf Urine Mucus Many H (None) /hpf Thrombosis Risk Factor Assmnt - Choose All That Apply Each Factor Represents 1 point: Age 41-60 years Other Risk Factors: No Thrombosis Risk Factor Assessment Total Risk Factor Score: 1 Thrombosis Risk Factor Assessment Level: Low Risk Assessment and Plan Assessment: Acute UTI Dehydration Hypotension secondary to the above, resolved with IV fluid hydration MS Lumbar DDD Plan: Continue on current medication regime ,monitoring and symptomatic treatment. Patient requesting increased pain medication, discussed given her current chronic pain med regimen, could give her a one-time dose of Dilaudid, will add dyclomine for spasms. Urine culture pending. Infectious disease consulted/IV antibiotics of Merrem have been initiated. The impression and plan of care has been dictated as directed. : I performed a history and examination of this patient, discussed the same with the dictator. I agree with the dictator's note ,documented as a scribe. Any additional findings or plans will be noted.
[2023-07-04] MEDS: DICYCLOMINE 10 MG CAP PO SCH ×4 (14:22→23:35)
[2023-07-04] MEDS: ONDANSETRON 4 MG/2 ML VIAL IVP PRN (15:07)
[2023-07-04] MEDS ORDERED: FLUCONAZOLE 150 MG TAB PO STA (15:08)
[2023-07-04] MEDS: MEROPENEM 1 GM in SODIUM CHLORIDE 0.9% 100 ML IVPB SCH ×2 (16:01→23:37)
[2023-07-04] MEDS: traZODone HCL 100 MG TAB PO SCH (20:10)
--- NOTE | 2023-07-04 22:23 | P.CONS ---
History of Present Illness - Reason for Consult Consult date: 07/04/23 ESBL UTI Requesting physician: Pro Hwang - Chief Complaint Urinary burning frequency and fever x few days - History of Present Illness Patient is a 53-year-old female with a past medical history significant for fibromyalgia hyperlipidemia memory impairment pneumonia COPD history of recurrent UTI patient presenting to the hospital concerning for urinary burning frequency suprapubic and flank pain and fever symptom has been getting worse over the last few days to weeks patient has been diagnosed with UTI and has been treated with multiple antibiotic therapy without any improvement has the patient was advised to go to the hospital as apparently patient has grown and drug-resistant E. coli in the urine patient on presentation to the hospital was afebrile and no fever have recorded subsequently patient did have a white count of 16.2 with a left shift kidney function has been normal urine was positive with lying to sinus history is more than 22 WBC patient was started on meropenem 2 g every 8 infectious disease was consulted for further management of antibiotic therapy patient currently complaining of fever and chills along with weakness she is complaining of burning frequency of urine suprapubic and flank pain describing to be more of a sharp, moderate intensity without radiation Review of Systems Positive point and negatives has been mentioned in the HPI, complete review of systems was performed and all other systems are negative Past Medical History Past Medical History: Asthma, Blood Disorder, Heart Failure, COPD, Deep Vein Thrombosis (DVT), Eye Disorder, Fibromyalgia, GERD/Reflux, Hearing Disorder / Deafness, Hyperlipidemia, Memory Impairment, Musculoskeletal Disorder, Neurologic Disorder, Osteoarthritis (OA), Pneumonia, Renal Disease, Skin Disorder, Sleep Apnea/CPAP/BIPAP, Syncope, Thyroid Disorder Additional Past Medical History / Comment(s): Multiple sclerosis, factor 5 leiden, RUBI-no device, DVT L leg 2013, hiatal hernia, hoarseness/leukoplakia, adrenal insufficiency/chronic steroid use/pituitary tumor, migraines, DJD, chronic back pain, bursitis, optic neuritis bilaterally, glaucoma , tinnitis, rosacea, insomnia, hypersomnia. bilat CTS, peripheral neuropathy, vertigo. hx infection at back surgery site. History of Any Multi-Drug Resistant Organisms: Other MDRO Year Discovered:: 2013 MDRO Source:: abdomen Past Surgical History: Back Surgery, Bladder Surgery, Section, Cholecystectomy, Tubal Ligation Additional Past Surgical History / Comment(s): 09/24/18 bladder stimulator, redone 09/2020. 02/05/19 microlarygoscopy/bx, vocal cord polypectomies, cervical bx, bladder suspension, EGD with bx, colonoscopy,. Laminectomy w/ decompression (01/09/20), Drainage of seroma back (02/02/20), removal spinal hardware, I&D back wound,. PICC line. Past Anesthesia/Blood Transfusion Reactions: Motion Sickness Additional Past Anesthesia/Blood Transfusion Reaction / Comm: occasional bad headaches. Past Psychological History: ADD/ADHD, Anxiety, Depression Additional Psychological History / Comment(s): . Smoking Status: Current every day smoker Past Alcohol Use History: None Reported Additional Past Alcohol Use History / Comment(s): 1 ppd smoker since 1981---has cut back to / ppd Past Drug Use History: None Reported Additional Drug Use History / Comment(s): occ marijuana use- - Past Family History Brother(s) Family Medical History: Deep Vein Thrombosis (DVT) Father Family Medical History: Deep Vein Thrombosis (DVT) Additional Family Medical History / Comment(s): Patient states that her father has no cardiac history but his father had previous IL's. Mother Family Medical History: Cancer, Deep Vein Thrombosis (DVT), Pulmonary Embolus Additional Family Medical History / Comment(s): Cervical cancer. Medications and Allergies Home Medications Medication Instructions Recorded Confirmed Type DULoxetine HCL [Cymbalta] 60 mg PO BID 04/01/19 07/03/23 History traZODone HCL 100 mg PO HS 12/03/19 07/03/23 History Apixaban [Eliquis] 5 mg PO Q12H 12/17/19 07/03/23 History Hydrocortisone [Cortef] 20 mg PO DAILY 10/07/20 07/03/23 History Morphine Sulfate ER [Ms Contin] 15 mg PO Q12H 10/07/20 07/03/23 History Hydrocortisone [Cortef] 10 mg PO HS 04/26/21 07/03/23 History Acetaminophen [Tylenol] 975 mg PO Q8H PRN 05/05/22 07/03/23 History Albuterol Sulfate [Proair Hfa] 2 puff INHALATION RT-Q6H PRN 05/05/22 07/03/23 History Amitriptyline HCl [Elavil] 100 mg PO HS 05/05/22 07/03/23 History Ergocalciferol [Vitamin D2 (1250 1,250 mcg PO MO 05/05/22 07/03/23 History Mcg = 00015 Iu)] Omeprazole 20 mg PO DAILY 05/05/22 07/03/23 History buPROPion XL [Wellbutrin XL] 300 mg PO DAILY 05/05/22 07/03/23 History ALPRAZolam [Xanax] 0.5 mg PO TID PRN 05/31/23 07/03/23 History Ascorbic Acid [Vitamin C] 1,000 mg PO DAILY 05/31/23 07/03/23 History Calcium Carbonate [Calcium] 600 mg PO DAILY 05/31/23 07/03/23 History Cariprazine HCl [Vraylar] 1.5 mg PO DAILY 05/31/23 07/03/23 History Celecoxib [CeleBREX] 200 mg PO DAILY 05/31/23 07/03/23 History Ketorolac [Toradol] 10 mg PO Q6HR PRN 05/31/23 07/03/23 History Levothyroxine Sodium [Synthroid] 100 mcg PO DAILY 05/31/23 07/03/23 History Meloxicam [Mobic] 15 mg PO DAILY 05/31/23 07/03/23 History Multivitamins, Thera [Multivitamin 1 tab PO DAILY 05/31/23 07/03/23 History (formulary)] Naloxone HCl [Narcan] 4 mg NASAL ONCE PRN 05/31/23 07/03/23 History Orphenadrine Citrate [Orphenadrine 100 mg PO BID PRN 05/31/23 07/03/23 History Citrate ER] Phentermine HCl [Adipex-P] 37.5 mg PO AC-BRKFST 05/31/23 07/03/23 History Pregabalin [Lyrica] 200 mg PO TID 05/31/23 07/03/23 History Semaglutide [Ozempic] 1 mg SQ MO 05/31/23 07/03/23 History Tiotropium Br/Olodaterol HCl 2 puff INHALATION RT-DAILY 05/31/23 07/03/23 History [Stiolto Respimat Inhal [place]] Varenicline [Chantix Starter Pack] See Taper PO DIRECTED 05/31/23 07/03/23 History metroNIDAZOLE 0.75% CREAM 1 applic TOPICAL HS 05/31/23 07/03/23 History [Metrocream 0.75%] oxyCODONE-APAP 10-325MG [Percocet 1 tab PO TID 05/31/23 07/03/23 History 10-325 mg] Fluconazole [Diflucan] 150 mg PO Q48H 07/03/23 07/03/23 History ondansetron HCL [Zofran] 8 mg PO Q8HR PRN 07/03/23 07/03/23 History Allergies Allergy/AdvReac Type Severity Reaction Status Date / Time amoxicillin [From Augmentin] Allergy Diarrhea, Verified 05/31/23 14:53 hives clavulanic acid Allergy Diarrhea, Verified 05/31/23 14:53 [From Augmentin] hives doxycycline Allergy Rash/Hives Verified 05/31/23 14:52 glatiramer (copolymer 1) Allergy Rapid Verified 05/31/23 14:52 [From Copaxone] Heart Rate,hives, skin flushing sulfamethoxazole Allergy blisters Verified 05/31/23 14:52 [From Bactrim] in mouth, rash/hives trimethoprim [From Bactrim] Allergy blisters Verified 05/31/23 14:52 in mouth, rash/hives steroids AdvReac genital Uncoded 05/31/23 12:52 burning & rashes but still takes steroids. Physical Exam Vitals: Vital Signs Temp Pulse Pulse Resp BP BP Pulse Ox 07/04/23 08:00 100 16 106/66 97 07/04/23 06:50 97.0 F L 97 16 126/66 95 07/04/23 03:05 97.3 F L 94 18 103/66 94 L 07/03/23 17:36 98 F 55 L 16 100/60 98 Intake and Output 07/03/23 07/04/23 07/04/23 22:59 06:59 14:59 Other: Voiding Method Toilet Toilet Diaper Diaper Weight 102.965 kg 102.965 kg GENERAL DESCRIPTION: Middle-aged female lying in bed, no distress. No tachypnea or accessory muscle of respiration use. HEENT: Shows Pallor , no scleral icterus. Oral mucous membrane is dry. No pharyngeal erythema or thrush NECK: Trachea central, no thyromegaly. LUNGS: Unlabored breathing. Clear to auscultation anteriorly. No wheeze or crackle. HEART: S1, S2, regular rate and rhythm. No loud murmur ABDOMEN: Soft, no tenderness , EXTREMITIES: No edema of feet. SKIN: No rash, no masses palpable. NEUROLOGICAL: The patient is awake, alert, oriented x3, mood and affect normal. Results CBC & Chem 7: 07/03/23 17:54 07/03/23 17:54 Labs: Abnormal Lab Results - Last 24 Hours (Table) 07/03/23 07/03/23 Range/Units 17:54 18:53 WBC 16.2 H (3.8-10.6) k/uL RBC 5.52 H (3.80-5.40) m/uL MCV 77.9 L (80.0-100.0) fL RDW 15.8 H (11.5-15.5) % Neutrophils # 11.5 H (1.3-7.7) k/uL Urine Appearance Turbid H (Clear) Urine Protein 1+ H (Negative) Urine Blood Small H (Negative) Urine Nitrite Positive H (Negative) Ur Leukocyte Esterase Large H (Negative) Urine RBC 38 H (0-5) /hpf Urine WBC >182 H (0-5) /hpf Urine WBC Clumps Many H (None) /hpf Ur Squamous Epith Cells 24 H (0-4) /hpf Urine Bacteria Occasional H (None) /hpf Hyaline Casts 38 H (0-2) /lpf Urine Mucus Many H (None) /hpf Assessment and Plan (1) UTI due to extended-spectrum beta lactamase (ESBL) producing Escherichia coli Current Visit: Yes Status: Acute Code(s): N39.0 - URINARY TRACT INFECTION, SITE NOT SPECIFIED; B96.29 - OTH ESCHERICHIA COLI THE CAUSE OF DISEASES CLASSD ELSWHR; Z16.12 - EXTENDED SPECTRUM BETA LACTAMASE (ESBL) RESISTANCE SNOMED Code(s): 825048664 Plan: 1patient presented to hospital with symptomatic urinary tract infection failing outpatient oral antibiotic therapy apparently outpatient culture positive for ESBL E. coli patient did have elevated white count positive UA and urinary symptoms likely symptomatic urinary tract infection 2-we will decrease the dose of meropenem to 1 g every 8 hours while waiting for the culture to finalize 3-check ultrasound the kidney bladder area to make sure evidence of any struct ural abnormality We will follow on clinical condition and cultures to further adjust medication if needed Thank you for this consultation we will follow the patient along with you Dictation was produced using [employer] dictation software. please excuse any grammatical, word or spelling errors. Time with Patient: Greater than 30
[2023-07-04] MEDS: AMITRIPTYLINE HCL 50 MG TAB PO SCH (23:35)
[2023-07-04] MEDS: HYDROCORTISONE 10 MG TAB PO SCH (23:35)
[2023-07-05] MEDS: ALPRAZolam 0.5 MG TAB PO PRN (02:02)
[2023-07-05] MEDS: HYDROcodone/APAP 5-325MG 1 EACH TAB PO PRN ×3 (02:02→12:27)
[2023-07-05] MEDS: PANTOPRAZOLE 40 MG TABLET PO SCH (06:08)
[2023-07-05] MEDS: LEVOTHYROXINE 100 MCG TAB PO SCH (06:08)
[2023-07-05] MEDS: SODIUM CHLORIDE 0.9% 1,000 ML IV SCH ×2 (06:09→19:50)
--- NOTE | 2023-07-05 08:22 | US ---
EXAMINATION TYPE: US kidneys/renal and bladder DATE OF EXAM: 07/05/2023 COMPARISON: CT CLINICAL INDICATION: Female, 53 years old with history of uti and bacteremia; UTI EXAM MEASUREMENTS: Right Kidney: 11.5 x 5.1 x 5.2 cm Left Kidney: 10.3 x 6.0 x 5.2 cm Right Kidney: No evidence of hydro, lower pole gassed out Left Kidney: No evidence of hydro, Difficult to visualize due to overlying bowel gas Bladder: wnl Bilateral Jets seen: Yes There is no evidence for hydronephrosis at this point in time. No nephrolithiasis is seen. No francisco s are identified. The urinary bladder is anechoic. Bilateral ureteral jets are seen. IMPRESSION: No evidence for obstructive uropathy.
[2023-07-05] MEDS: MEROPENEM 1 GM in SODIUM CHLORIDE 0.9% 100 ML IVPB SCH ×3 (09:11→23:58)
[2023-07-05] MEDS: PREGABALIN 100 MG CAP PO SCH ×3 (09:12→21:27)
[2023-07-05] MEDS: DULoxetine HCL 60 MG CAPSULE.DR PO SCH ×2 (09:12→21:27)
[2023-07-05] MEDS: DICYCLOMINE 10 MG CAP PO SCH ×4 (09:12→21:27)
[2023-07-05] MEDS: buPROPion XL 300 MG TAB.ER.24H PO SCH (09:12)
[2023-07-05] MEDS: HYDROCORTISONE 20 MG TAB PO SCH (09:13)
[2023-07-05] MEDS: APIXABAN 5 MG TAB PO SCH ×2 (09:13→21:26)
[2023-07-05] MEDS: oxyCODONE-APAP 10-325MG 1 EACH TAB PO SCH ×3 (09:14→21:25)
[2023-07-05] MEDS: MORPHINE SULFATE ER 15 MG TABLET PO SCH ×2 (09:14→21:27)
--- NOTE | 2023-07-05 11:37 | P.PN ---
Subjective Progress Note Date: 07/05/23 Principal diagnosis: Urinary tract infection Patient is a 53-year-old female with a past medical history significant for fibromyalgia hyperlipidemia memory impairment pneumonia COPD history of recurrent UTI patient presenting to the hospital concerning for urinary burning frequency suprapubic and flank pain and fever , failing outpatient oral antibiotic therapy and apparently outpatient antibiotic were positive for ESBL E. coli On today's evaluation that is07/05/2023, the patient denies any fever or any chills, the patient is breathing comfortably on room air and no need for supplemental oxygen, the patient denies any chest pain, cough or sputum production, patient denies abdominal pain and no nausea/vomiting and no diarrhea has been reported. Patient culture currently pending no lab draw today Objective - Vital Signs Vital signs: Vital Signs Temp 97.7 F 07/05/23 07:10 Pulse 78 07/05/23 09:13 Resp 16 07/05/23 09:13 BP 98/65 07/05/23 07:10 Pulse Ox 92 L 07/05/23 07:10 FiO2 Intake & Output 07/04/23 07/05/23 07/05/23 18:59 06:59 18:59 Other: Voiding Method Toilet Toilet Toilet Diaper # Voids 2 - Exam GENERAL DESCRIPTION: A middle-age female lying in bed in no distress RESPIRATORY SYSTEM: Unlabored breathing , clear to auscultation anteriorly HEART: S1 S2 regular rate and rhythm , ABDOMEN: Soft , no tenderness EXTREMITIES: No edema feet - Labs CBC & Chem 7: 07/03/23 17:54 07/03/23 17:54 Labs: Microbiology - Last 24 Hours (Table) 07/03/23 18:53 Urine Culture - Preliminary Urine,Clean Catch Gram Neg Bacilli Assessment and Plan (1) UTI due to extended-spectrum beta lactamase (ESBL) producing Escherichia coli Current Visit: Yes Status: Acute Code(s): N39.0 - URINARY TRACT INFECTION, SITE NOT SPECIFIED; B96.29 - OTH ESCHERICHIA COLI THE CAUSE OF DISEASES CLASSD ELSWHR; Z16.12 - EXTENDED SPECTRUM BETA LACTAMASE (ESBL) RESISTANCE SNOMED Code(s): 503477882 Plan: 1patient presented to hospital with symptomatic urinary tract infection failing outpatient oral antibiotic therapy apparently outpatient culture positive for ESBL E. coli patient did have elevated white count positive UA and urinary symptoms likely symptomatic urinary tract infection 2-ultrasound the kidney bladder area with no evidence of any structural abnormality 3patient to continue with the meropenem while waiting for the cultures to finalize Dictation was produced using [email or web address] dictation software. please excuse any grammatical, word or spelling errors. Time with Patient: Less than 30
[2023-07-05] MEDS: NON FORMULARY DRUG (Cariprazine Hcl [Vraylar] 1.5 MG Capsule) PO SCH (11:38)
[2023-07-05 11:52] LABS: Basophils # (A) 0.07 X 10*3/uL (0.00-0.10); Basophils % (A) 0.7 %; Eosinophils # (A) 0.32 X 10*3/uL (0.04-0.35); Eosinophils % (A) 3.1 %; HCT 40.8 % (37.2-46.3); HGB 12.3 g/dL (12.0-15.0); Lymphocytes % (A) 24.6 %; MCH 24.9 pg (27.0-32.0); MCHC 30.1 g/dL (32.0-37.0); MCV 82.8 FL (80.0-97.0); Mean Platelet Volume 10.3 FL (9.5-12.2); Monocytes # (A) 0.71 X 10*3/uL (0.20-1.00); NRBC Per 100 WBC 0 X 10*3/uL (0.00-0.01); Platelet Count 328 X 10*3/uL (140-440); RBC 4.93 X 10*6/uL (4.10-5.20); RDW 16.7 % (11.5-14.5); WBC 10.16 X 10*3/uL (4.50-10.00)
[2023-07-05 11:54] LABS: BUN/Creat Ratio 13.14 Ratio (12.00-20.00); Blood Urea Nitrogen 9.2 mg/dL (9.0-27.0); Carbon Dioxide 29.2 mmol/L (21.6-31.8); Chloride 104 mmol/L (96-109); Glucose 98 mg/dL (70-110); Potassium 4.4 mmol/L (3.5-5.5); Sodium 141 mmol/L (135-145)
--- NOTE | 2023-07-05 12:28 | P.PN ---
Subjective Progress Note Date: 07/05/23 Karlos Rojo is a 53 yo F with past medical history hx significant for UTI with sepsis, MS, chronic back pain, laminectomy/decompression, fibromyalgia gastroesophageal reflux disease, COPD and multiple other medical issues presented to the ER with complaints of ongoing UTI ,"never improved since last IP admission." History of E. coli 04/20/2022 urine culture resistant to ampicillin, gentamicin and Bactrim . UA from 05/31/2023 reported negative nitrates, large leukocytes, 62 WBCs, few WBC clumps, occasional bacteria and patient was treated with IV antibiotics.Reports she continued to have dysuria chills, sweats, nausea, right flank pain. UA currently reporting positive nitrates, large leukocytes, greater than 100 urine WBCs, many WBC clumps. Urine culture pending. IV antibiotics initiated in the ER. Received IV fluid hydration for soft blood pressures. Afebrile, WBC 16.2, hemoglobin 14.5, platelets 338. Chemistry panel unremarkable. Denies chest pain, palpitations or shortness of breath. Maintaining O2 sats in the high 90s on room air. 07/05/2023 maintained on IV Merrem as per infectious disease. Afebrile, WBC 10.16, renal function stable. Urine culture in progress. Reports decreased severity of chills, sweats, bladder spasms/abdominal /right flank pain, nausea with current med regimen. Denies chest pain, palpitations or shortness of breath. Objective - Vital Signs Vital signs: Vital Signs Temp 97.7 F 07/05/23 07:10 Pulse 78 07/05/23 07:10 Resp 16 07/05/23 07:10 BP 98/65 07/05/23 07:10 Pulse Ox 92 L 07/05/23 07:10 FiO2 Intake & Output 07/04/23 07/05/23 07/05/23 18:59 06:59 18:59 Other: Voiding Method Toilet Toilet Diaper # Voids 2 - Exam General: Alert and oriented 3, NAD. Vitals reviewed Eyes: PERRL, EOMI, conjunctiva normal HENT: normocephalic, mucus membranes moist Neck: supple, no JVD Lungs: normal respiratory effort, no wheezes or rales CV: Regular rate and rhythm, no murmur. Peripheral pulses 2+ Abdomen: soft, nondistended, diffuse bilateral lower quadrant tenderness, no organomegaly. Skin: warm and dry. Neuro: No focal deficits - Labs CBC & Chem 7: 07/05/23 06:52 07/05/23 06:52 Assessment and Plan Assessment: Acute UTI Dehydration Hypotension secondary to the above, resolved with IV fluid hydration MS Lumbar DDD Plan: Continue on current medication regime ,monitoring and symptomatic emily tment. Renal ultrasound pending. IV antibiotics as per ID, urine culture finalizing. Complains of muscle tightness upper extremities; reports she was recently prescribed a muscle relaxant outpatient by neurology and had not yet picked up prior to admission. Requesting muscle relaxant, Xanax discontinued, Zanaflex ordered. Increase activity as tolerated. The impression and plan of care has been dictated as directed. : I performed a history and examination of this patient, discussed the same with the dictator. I agree with the dictator's note ,documented as a scribe. Any additional findings or plans will be noted.
[2023-07-05] MEDS ORDERED: MELOXICAM 7.5 MG TAB PO SCH (15:00)
[2023-07-05] MEDS: PHENAZOPYRIDINE 100 MG TAB PO SCH ×2 (15:48→21:27)
[2023-07-05] MEDS ORDERED: ERGOCALCIFEROL 1,250 MCG (50,000 IU) CAPSULE PO SCH (17:00)
[2023-07-05] MEDS: tiZANidine 4 MG TAB PO PRN (17:20)
[2023-07-05] MEDS: AMITRIPTYLINE HCL 50 MG TAB PO SCH (21:26)
[2023-07-05] MEDS: traZODone HCL 100 MG TAB PO SCH (21:26)
[2023-07-05] MEDS: HYDROCORTISONE 10 MG TAB PO SCH (22:17)
[2023-07-06] MEDS: tiZANidine 4 MG TAB PO PRN ×2 (02:36→17:48)
[2023-07-06] MEDS: MEROPENEM 1 GM in SODIUM CHLORIDE 0.9% 100 ML IVPB SCH ×2 (08:40→15:06)
[2023-07-06] MEDS: ONDANSETRON 4 MG/2 ML VIAL IVP PRN ×2 (08:40→17:50)
[2023-07-06] MEDS: DICYCLOMINE 10 MG CAP PO SCH ×4 (08:41→23:15)
[2023-07-06] MEDS: buPROPion XL 300 MG TAB.ER.24H PO SCH (08:41)
[2023-07-06] MEDS: oxyCODONE-APAP 10-325MG 1 EACH TAB PO SCH (08:41)
[2023-07-06] MEDS: LEVOTHYROXINE 100 MCG TAB PO SCH (08:44)
[2023-07-06] MEDS: PHENAZOPYRIDINE 100 MG TAB PO SCH ×3 (08:44→23:15)
[2023-07-06] MEDS: PANTOPRAZOLE 40 MG TABLET PO SCH (08:44)
[2023-07-06] MEDS: PREGABALIN 100 MG CAP PO SCH ×3 (08:44→23:14)
[2023-07-06] MEDS: HYDROCORTISONE 20 MG TAB PO SCH (08:45)
[2023-07-06] MEDS: DULoxetine HCL 60 MG CAPSULE.DR PO SCH ×2 (08:46→23:15)
[2023-07-06 09:04] LABS: BUN/Creat Ratio 9.71 Ratio (12.00-20.00); Blood Urea Nitrogen 6.8 mg/dL (9.0-27.0); Calcium 9.3 mg/dL (8.7-10.3); Carbon Dioxide 30.1 mmol/L (21.6-31.8); Chloride 102 mmol/L (96-109); Glucose 99 mg/dL (70-110); Potassium 4.2 mmol/L (3.5-5.5); Sodium 141 mmol/L (135-145)
[2023-07-06 09:43] LABS: Basophils # (A) 0.06 X 10*3/uL (0.00-0.10); Basophils % (A) 0.6 %; Eosinophils # (A) 0.35 X 10*3/uL (0.04-0.35); Eosinophils % (A) 3.6 %; HCT 40.6 % (37.2-46.3); HGB 12.4 g/dL (12.0-15.0); Lymphocytes % (A) 33.1 %; MCH 25.3 pg (27.0-32.0); MCHC 30.5 g/dL (32.0-37.0); MCV 82.7 FL (80.0-97.0); Mean Platelet Volume 10.2 FL (9.5-12.2); Monocytes # (A) 0.75 X 10*3/uL (0.20-1.00); Monocytes % (A) 7.7 %; NRBC Per 100 WBC 0 X 10*3/uL (0.00-0.01); Neutrophils # (A) 5.27 X 10*3/uL (1.80-7.70); Neutrophils % (A) 54.5 %; Platelet Count 308 X 10*3/uL (140-440); RBC 4.91 X 10*6/uL (4.10-5.20); RDW 16.6 % (11.5-14.5); WBC 9.68 X 10*3/uL (4.50-10.00)
[2023-07-06] MEDS: NON FORMULARY DRUG (Cariprazine Hcl [Vraylar] 1.5 MG Capsule) PO SCH (09:54)
[2023-07-06] MEDS: MORPHINE SULFATE ER 15 MG TABLET PO SCH ×2 (10:00→23:14)
[2023-07-06] MEDS: APIXABAN 5 MG TAB PO SCH ×2 (10:00→23:14)
[2023-07-06] MEDS: busPIRone HCl 10 MG TAB PO SCH ×2 (10:01→23:14)
[2023-07-06] MEDS: oxyCODONE-APAP 10-325MG 1 EACH TAB PO PRN (15:05)
--- NOTE | 2023-07-06 15:50 | P.PN ---
Subjective Progress Note Date: 07/06/23 Principal diagnosis: Urinary tract infection Patient is a 53-year-old female with a past medical history significant for fibromyalgia hyperlipidemia memory impairment pneumonia COPD history of recurrent UTI patient presenting to the hospital concerning for urinary burning frequency suprapubic and flank pain and fever , failing outpatient oral antibiotic therapy and apparently outpatient antibiotic were positive for ESBL E. coli On today's evaluation that is 07/06/2023, the patient remains to be afebrile, the patient is breathing comfortably on room air , the patient denies any chest pain or any cough , patient denies nausea/vomiting diarrhea and no abdominal pa in mention improvement in the urinary symptoms with IDDM Patient white count is 9.68 creatinine 0.7, urine culture with gram-negative ID sensitivities pending Objective - Vital Signs Vital signs: Vital Signs Temp 97.6 F 07/06/23 08:00 Pulse 85 07/06/23 08:19 Resp 20 07/06/23 08:19 BP 115/75 07/06/23 08:00 Pulse Ox 96 07/06/23 08:00 FiO2 Intake & Output 07/05/23 07/06/23 07/06/23 18:59 06:59 18:59 Other: Voiding Method Toilet Toilet Toilet # Voids 3 - Exam GENERAL DESCRIPTION: A middle-age female lying in bed in no distress RESPIRATORY SYSTEM: Unlabored breathing , clear to auscultation anteriorly HEART: S1 S2 regular rate and rhythm , ABDOMEN: Soft , no tenderness EXTREMITIES: No edema feet - Labs CBC & Chem 7: 07/06/23 06:26 07/06/23 06:26 Labs: Abnormal Lab Results - Last 24 Hours (Table) 07/05/23 07/06/23 07/06/23 Range/Units 06:52 06:26 06:26 WBC 10.16 H (4.50-10.00) X 10*3/uL MCH 24.9 L 25.3 L (27.0-32.0) pg MCHC 30.1 L 30.5 L (32.0-37.0) g/dL RDW 16.7 H 16.6 H (11.5-14.5) % BUN 6.8 L (9.0-27.0) mg/dL BUN/Creatinine Ratio 9.71 L (12.00-20.00) Ratio Microbiology - Last 24 Hours (Table) 07/03/23 18:53 Urine Culture - Preliminary Urine,Clean Catch Gram Neg Bacilli Assessment and Plan (1) UTI due to extended-spectrum beta lactamase (ESBL) producing Escherichia coli Current Visit: Yes Status: Acute Code(s): N39.0 - URINARY TRACT INFECTION, SITE NOT SPECIFIED; B96.29 - OTH ESCHERICHIA COLI THE CAUSE OF DISEASES CLASSD ELSWHR; Z16.12 - EXTENDED SPECTRUM BETA LACTAMASE (ESBL) RESISTANCE SNOMED Code(s): 774022906 Plan: 1patient presented to hospital with symptomatic urinary tract infection failing outpatient oral antibiotic therapy apparently outpatient culture positive for ESBL E. coli patient did have elevated white count positive UA and urinary symptoms likely symptomatic urinary tract infection 2-ultrasound the kidney bladder area with no evidence of any structural abnormality 3patient did have some clinical improvement and will continue with the meropenem while waiting for the cultures to finalize will need midline and outpatient IV antibiotics Dictation was produced using [employer] dictation software. please excuse any grammatical, word or spelling errors. Time with Patient: Less than 30
[2023-07-06] MEDS ORDERED: PROMETHAZINE 25 MG TAB PO ONE (21:50)
--- NOTE | 2023-07-06 21:56 | P.PN ---
Subjective Progress Note Date: 07/06/23 Karlos Rojo is a 53 yo F with past medical history hx significant for UTI with sepsis, MS, chronic back pain, laminectomy/decompression, fibromyalgia gastroesophageal reflux disease, COPD and multiple other medical issues presented to the ER with complaints of ongoing UTI ,"never improved since last IP admission." History of E. coli 04/20/2022 urine culture resistant to ampicillin, gentamicin and Bactrim . UA from 05/31/2023 reported negative nitrates, large leukocytes, 62 WBCs, few WBC clumps, occasional bacteria and patient was treated with IV antibiotics.Reports she continued to have dysuria chills, sweats, nausea, right flank pain. UA currently reporting positive nitrates, large leukocytes, greater than 100 urine WBCs, many WBC clumps. Urine culture pending. IV antibiotics initiated in the ER. Received IV fluid hydration for soft blood pressures. Afebrile, WBC 16.2, hemoglobin 14.5, platelets 338. Chemistry panel unremarkable. Denies chest pain, palpitations or shortness of breath. Maintaining O2 sats in the high 90s on room air. 07/05/2023 maintained on IV Merrem as per infectious disease. Afebrile, WBC 10.16, renal function stable. Urine culture in progress. Reports decreased severity of chills, sweats, bladder spasms/abdominal /right flank pain, nausea with current med regimen. Denies chest pain, palpitations or shortness of breath. 07/06/2023. She continues on IV meropenem, she feels he abominal discomfort is improving although still present. She continues to endorse intermittent nausea. Afebrile last 24 hours. No chest pain, shortness of breath. Objective - Vital Signs Vital signs: Vital Signs Temp 98.1 F 07/06/23 18:40 Pulse 86 07/06/23 18:40 Resp 18 07/06/23 18:40 BP 110/79 07/06/23 18:40 Pulse Ox 90 L 07/06/23 18:40 FiO2 Intake & Output 07/06/23 07/06/23 07/07/23 06:59 18:59 06:59 Other: Voiding Method Toilet Toilet # Voids 3 2 - Exam Gen: obese, NAD CV: RRR, no murmur Lungs: Normal effort, clear throughout Abd: soft, tenderness suprapubic - Labs CBC & Chem 7: 07/06/23 06:26 07/06/23 06:26 Labs: Abnormal Lab Results - Last 24 Hours (Table) 07/06/23 07/06/23 Range/Units 06:26 06:26 MCH 25.3 L (27.0-32.0) pg MCHC 30.5 L (32.0-37.0) g/dL RDW 16.6 H (11.5-14.5) % BUN 6.8 L (9.0-27.0) mg/dL BUN/Creatinine Ratio 9.71 L (12.00-20.00) Ratio Microbiology - Last 24 Hours (Table) 07/03/23 18:53 Urine Culture - Final Urine,Clean Catch Escherichia coli Assessment and Plan Plan: Continue with IV meropenem per ID. Urine culture with ESBL E coli. Continue home pain medications and cortef. Zofan and phenergan for nausea.
[2023-07-06] MEDS: traZODone HCL 100 MG TAB PO SCH (23:15)
[2023-07-06] MEDS: AMITRIPTYLINE HCL 50 MG TAB PO SCH (23:15)
[2023-07-06] MEDS: HYDROCORTISONE 10 MG TAB PO SCH (23:15)
[2023-07-07] MEDS: MEROPENEM 1 GM in SODIUM CHLORIDE 0.9% 100 ML IVPB SCH ×4 (01:41→23:24)
[2023-07-07] MEDS: SODIUM CHLORIDE 0.9% 1,000 ML IV SCH ×4 (01:49→22:51)
[2023-07-07] MEDS: oxyCODONE-APAP 10-325MG 1 EACH TAB PO PRN ×4 (02:26→22:00)
[2023-07-07] MEDS: PANTOPRAZOLE 40 MG TABLET PO SCH (06:49)
[2023-07-07] MEDS: LEVOTHYROXINE 100 MCG TAB PO SCH (06:49)
[2023-07-07] MEDS ORDERED: diphenhydrAMINE 25 MG CAP PO PRN (07:09)
--- NOTE | 2023-07-07 07:49 | P.PN ---
Subjective Karlos Rojo is a 53 yo F with past medical history hx significant for UTI with sepsis, MS, chronic back pain, laminectomy/decompression, fibromyalgia gastroesophageal reflux disease, COPD and multiple other medical issues presented to the ER with complaints of ongoing UTI ,"never improved since last IP admission." History of E. coli 04/20/2022 urine culture resistant to ampicillin, gentamicin and Bactrim . UA from 05/31/2023 reported negative nitrates, large leukocytes, 62 WBCs, few WBC clumps, occasional bacteria and patient was treated with IV antibiotics.Reports she continued to have dysuria chills, sweats, nausea, right flank pain. UA currently reporting positive nitrates, large leukocytes, greater than 100 urine WBCs, many WBC clumps. Urine culture pending. IV antibiotics initiated in the ER. Received IV fluid hydration for soft blood pressures. Afebrile, WBC 16.2, hemoglobin 14.5, platelets 338. Chemistry panel unremarkable. Denies chest pain, palpitations or shortness of breath. Maintaining O2 sats in the high 90s on room air. 07/05/2023 maintained on IV Merrem as per infectious disease. Afebrile, WBC 10.16, renal function stable. Urine culture in progress. Reports decreased severity of chills, sweats, bladder spasms/abdominal /right flank pain, nausea with current med regimen. Denies chest pain, palpitations or shortness of breath. 07/06/2023. She continues on IV meropenem, she feels he abominal discomfort is improving although still present. She continues to endorse intermittent nausea. Afebrile last 24 hours. No chest pain, shortness of breath. 07/07/2023 This is a pleasant 53 years old female with multiple medical problems was admitted with signs and symptoms of UTI and found to have infection secondary to ESBL E. coli, currently covered with meropenem with the plan to be discharged IV antibiotics after midnight placed mostly on Sunday. She has dysuria which is improving, also she has some nausea which she states her nausea medication controlled it, she complains from itching and request her home dose of Benadryl 50 mg every 6 hours,. Also she is on a Eliquis 5 mg, she has history of deep venous thrombosis. She is currently on normal saline 75 mL/h Objective - Vital Signs Vital signs: Vital Signs Temp 98.1 F 07/07/23 00:44 Pulse 85 07/07/23 00:44 Resp 18 07/07/23 00:44 BP 110/73 07/07/23 00:44 Pulse Ox 92 L 07/07/23 00:44 FiO2 Intake & Output 07/06/23 07/07/23 07/07/23 18:59 06:59 18:59 Other: Voiding Method Toilet Toilet # Voids 2 2 - Exam -GENERAL: The patient is alert and oriented x3, not in any acute distress. Obesity HEENT: Pupils are round and equally reacting to light. EOMI. No scleral icterus. No conjunctival pallor. Normocephalic, atraumatic. No pharyngeal erythema. No thyromegaly. CARDIOVASCULAR: S1 and S2 present. No murmurs, rubs, or gallops. PULMONARY: Chest is clear to auscultation, no wheezing , no crackles. ABDOMEN: Soft, nontender, nondistended, normoactive bowel sounds. No palpable organomegaly. MUSCULOSKELETAL: No joint swelling or deformity. EXTREMITIES: No cyanosis, clubbing, or pedal edema. NEUROLOGICAL: Gross neurological examination did not reveal any focal deficits. SKIN: No rashes. no petechiae. - Labs CBC & Chem 7: 07/06/23 06:26 07/06/23 06:26 Labs: Abnormal Lab Results - Last 24 Hours (Table) 07/06/23 07/06/23 Range/Units 06:26 06:26 MCH 25.3 L (27.0-32.0) pg MCHC 30.5 L (32.0-37.0) g/dL RDW 16.6 H (11.5-14.5) % BUN 6.8 L (9.0-27.0) mg/dL BUN/Creatinine Ratio 9.71 L (12.00-20.00) Ratio Microbiology - Last 24 Hours (Table) 07/03/23 18:53 Urine Culture - Final Urine,Clean Catch Escherichia coli Assessment and Plan Assessment: Acute urinary tract infection secondary to ESBL E. coli Nausea vomiting secondary to above History of the venous thrombosis on blood thinner COPD, no acute exacerbation Chronic heart failure, unknown ejection fraction Hyperlipidemia History of osteoarthritis History of sleep apnea Plan: Continue with meropenem Patient will need midline for possible IV antibiotics upon discharge. ID team recommendation on the case. Continue gentle hydration Labs and medication were reviewed.. Continue same treatment. Continue with symptomatic treatment. Resume home medication. Monitor labs and vitals. DVT and GI prophylaxis. Further recommendations as per clinical course of the patient DVT prophylaxis: eliquis GI Prophylaxis: Ppi Prognosis is guarded
[2023-07-07] MEDS: DICYCLOMINE 10 MG CAP PO SCH ×4 (08:51→21:57)
[2023-07-07] MEDS: DULoxetine HCL 60 MG CAPSULE.DR PO SCH ×2 (08:52→21:57)
[2023-07-07] MEDS: busPIRone HCl 10 MG TAB PO SCH ×2 (08:52→21:57)
[2023-07-07] MEDS: buPROPion XL 300 MG TAB.ER.24H PO SCH (08:52)
[2023-07-07] MEDS: APIXABAN 5 MG TAB PO SCH ×2 (08:52→21:56)
[2023-07-07] MEDS: HYDROCORTISONE 20 MG TAB PO SCH (08:52)
[2023-07-07] MEDS: MORPHINE SULFATE ER 15 MG TABLET PO SCH ×2 (08:52→21:57)
[2023-07-07] MEDS: PREGABALIN 100 MG CAP PO SCH ×3 (08:53→21:56)
[2023-07-07] MEDS: PHENAZOPYRIDINE 100 MG TAB PO SCH ×3 (08:53→21:56)
[2023-07-07] MEDS: diphenhydrAMINE 25 MG CAP PO PRN ×2 (09:01→22:01)
[2023-07-07] MEDS: NON FORMULARY DRUG (Cariprazine Hcl [Vraylar] 1.5 MG Capsule) PO SCH (10:59)
--- NOTE | 2023-07-07 11:34 | P.PN ---
Subjective Progress Note Date: 07/07/23 Principal diagnosis: Urinary tract infection Patient is a 53-year-old female with a past medical history significant for fibromyalgia hyperlipidemia memory impairment pneumonia COPD history of recurrent UTI patient presenting to the hospital concerning for urinary burning frequency suprapubic and flank pain and fever , failing outpatient oral antibiotic therapy and apparently outpatient antibiotic were positive for ESBL E. coli On today's evaluation that is 07/07/2023, the patient denies any fever or any chills, the patient is breathing comfortably on room air without any need for supplemental oxygen, the patient denies any chest pain or any cough , patient denies abdominal pain, however has been complaining of nauseated and episode of vomiting yesterday and did not have any bowel movement since Sunday Patient white count is 9.68 creatinine 0.7 as of yesterday, urine culture with ESBL E. coli Objective - Vital Signs Vital signs: Vital Signs Temp 98.1 F 07/07/23 06:47 Pulse 81 07/07/23 07:45 Resp 20 07/07/23 07:45 BP 115/71 07/07/23 06:47 Pulse Ox 96 07/07/23 06:47 FiO2 Intake & Output 07/06/23 07/07/23 07/07/23 18:59 06:59 18:59 Other: Voiding Method Toilet Toilet Toilet # Voids 2 2 - Exam GENERAL DESCRIPTION: A middle-age female lying in bed in no distress RESPIRATORY SYSTEM: Unlabored breathing , clear to auscultation anteriorly HEART: S1 S2 regular rate and rhythm , ABDOMEN: Soft , no tenderness EXTREMITIES: No edema feet - Labs CBC & Chem 7: 07/06/23 06:26 07/06/23 06:26 Labs: Microbiology - Last 24 Hours (Table) 07/03/23 18:53 Urine Culture - Final Urine,Clean Catch Escherichia coli Assessment and Plan (1) UTI due to extended-spectrum beta lactamase (ESBL) producing Escherichia coli Current Visit: Yes Status: Acute Code(s): N39.0 - URINARY TRACT INFECTION, SITE NOT SPECIFIED; B96.29 - OTH ESCHERICHIA COLI THE CAUSE OF DISEASES CLASSD ELSWHR; Z16.12 - EXTENDED SPECTRUM BETA LACTAMASE (ESBL) RESISTANCE SNOMED Code(s): 317647764 Plan: 1patient presented to hospital with symptomatic urinary tract infection failing outpatient oral antibiotic therapy apparently outpatient culture positive for ESBL E. coli patient did have elevated white count positive UA and urinary symptoms likely symptomatic urinary tract infection 2-ultrasound the kidney bladder area with no evidence of any structural abnormality 3patient urine cultures has been finalized with ESBL E. coli 4-patient to continue the meropenem will need midline for outpatient IV Invanz Dictation was produced using [email or web address] dictation software. please excuse any gram matical, word or spelling errors. Time with Patient: Less than 30
[2023-07-07] MEDS: SENNOSIDES-DOCUSATE SODIUM 1 EACH TAB PO SCH ×2 (13:28→22:05)
[2023-07-07] MEDS: ACETAMINOPHEN TAB 325 MG TAB PO PRN (13:28)
[2023-07-07] MEDS: tiZANidine 4 MG TAB PO PRN (16:16)
[2023-07-07] MEDS: AMITRIPTYLINE HCL 50 MG TAB PO SCH (21:56)
[2023-07-07] MEDS: traZODone HCL 100 MG TAB PO SCH (21:57)
[2023-07-07] MEDS: HYDROCORTISONE 10 MG TAB PO SCH (21:57)
[2023-07-08] MEDS: ONDANSETRON 4 MG/2 ML VIAL IVP PRN ×2 (02:13→19:55)
[2023-07-08] MEDS: oxyCODONE-APAP 10-325MG 1 EACH TAB PO PRN ×4 (04:03→23:36)
[2023-07-08] MEDS: LEVOTHYROXINE 100 MCG TAB PO SCH (06:15)
[2023-07-08] MEDS: PANTOPRAZOLE 40 MG TABLET PO SCH (06:15)
[2023-07-08] MEDS: MEROPENEM 1 GM in SODIUM CHLORIDE 0.9% 100 ML IVPB SCH ×3 (08:25→23:36)
[2023-07-08] MEDS: PREGABALIN 100 MG CAP PO SCH ×3 (08:26→21:41)
[2023-07-08] MEDS: MORPHINE SULFATE ER 15 MG TABLET PO SCH ×2 (08:26→21:41)
[2023-07-08] MEDS: HYDROCORTISONE 10 MG TAB PO SCH (08:26)
[2023-07-08] MEDS: SENNOSIDES-DOCUSATE SODIUM 1 EACH TAB PO SCH ×2 (08:26→21:41)
[2023-07-08] MEDS: PHENAZOPYRIDINE 100 MG TAB PO SCH ×3 (08:26→21:41)
[2023-07-08] MEDS: DULoxetine HCL 60 MG CAPSULE.DR PO SCH ×2 (08:27→21:41)
[2023-07-08] MEDS: busPIRone HCl 10 MG TAB PO SCH ×4 (08:27→21:41)
[2023-07-08] MEDS: APIXABAN 5 MG TAB PO SCH ×2 (08:27→21:41)
[2023-07-08] MEDS: DICYCLOMINE 10 MG CAP PO SCH ×4 (08:27→23:36)
[2023-07-08] MEDS: buPROPion XL 300 MG TAB.ER.24H PO SCH (08:27)
[2023-07-08] MEDS: NON FORMULARY DRUG (Cariprazine Hcl [Vraylar] 1.5 MG Capsule) PO SCH (08:28)
--- NOTE | 2023-07-08 10:29 | P.PN ---
Subjective Karlos Rojo is a 53 yo F with past medical history hx significant for UTI with sepsis, MS, chronic back pain, laminectomy/decompression, fibromyalgia gastroesophageal reflux disease, COPD and multiple other medical issues presented to the ER with complaints of ongoing UTI ,"never improved since last IP admission." History of E. coli 04/20/2022 urine culture resistant to ampicillin, gentamicin and Bactrim . UA from 05/31/2023 reported negative nitrates, large leukocytes, 62 WBCs, few WBC clumps, occasional bacteria and patient was treated with IV antibiotics.Reports she continued to have dysuria chills, sweats, nausea, right flank pain. UA currently reporting positive nitrates, large leukocytes, greater than 100 urine WBCs, many WBC clumps. Urine culture pending. IV antibiotics initiated in the ER. Received IV fluid hydration for soft blood pressures. Afebrile, WBC 16.2, hemoglobin 14.5, platelets 338. Chemistry panel unremarkable. Denies chest pain, palpitations or shortness of breath. Maintaining O2 sats in the high 90s on room air. 07/05/2023 maintained on IV Merrem as per infectious disease. Afebrile, WBC 10.16, renal function stable. Urine culture in progress. Reports decreased severity of chills, sweats, bladder spasms/abdominal /right flank pain, nausea with current med regimen. Denies chest pain, palpitations or shortness of breath. 07/06/2023. She continues on IV meropenem, she feels he abominal discomfort is improving although still present. She continues to endorse intermittent nausea. Afebrile last 24 hours. No chest pain, shortness of breath. 07/07/2023 This is a pleasant 53 years old female with multiple medical problems was admitted with signs and symptoms of UTI and found to have infection secondary to ESBL E. coli, currently covered with meropenem with the plan to be discharged wi IV antibiotics after midnight placed mostly on Sunday. She has dysuria which is improving, also she has some nausea which she states her nausea medication controlled it, she complains from itching and request her home dose of Benadryl 50 mg every 6 hours,. Also she is on a Eliquis 5 mg, she has history of deep venous thrombosis. She is currently on normal saline 75 mL/h 07/08/2023 Patient with no significant UTI symptoms She has good appetite She feel anxious and she wants her BuSpar increased 10 mg twice a day into 10 mg 3 times a day Objective - Vital Signs Vital signs: Vital Signs Temp 98.7 F 07/08/23 06:47 Pulse 92 07/08/23 07:45 Resp 18 07/08/23 07:45 BP 111/74 07/08/23 06:47 Pulse Ox 92 L 07/08/23 06:47 FiO2 Intake & Output 07/07/23 07/08/23 07/08/23 18:59 06:59 18:59 Other: Voiding Method Toilet Toilet Toilet # Voids 4 3 # Bowel Movements 1 1 - Exam -GENERAL: The patient is alert and oriented x3, not in any acute distress. Obesity HEENT: Pupils are round and equally reacting to light. EOMI. No scleral icterus. No conjunctival pallor. Normocephalic, atraumatic. No pharyngeal erythema. No thyromegaly. CARDIOVASCULAR: S1 and S2 present. No murmurs, rubs, or gallops. PULMONARY: Chest is clear to auscultation, no wheezing , no crackles. ABDOMEN: Soft, nontender, nondistended, normoactive bowel sounds. No palpable organomegaly. MUSCULOSKELETAL: No joint swelling or deformity. EXTREMITIES: No cyanosis, clubbing, or pedal edema. NEUROLOGICAL: Gross neurological examination did not reveal any focal deficits. SKIN: No rashes. no petechiae. - Labs CBC & Chem 7: 07/06/23 06:26 07/06/23 06:26 Assessment and Plan Assessment: Acute urinary tract infection secondary to ESBL E. coli Nausea vomiting secondary to above History of the venous thrombosis on blood thinner COPD, no acute exacerbation Chronic heart failure, unknown ejection fraction Hyperlipidemia History of osteoarthritis History of sleep apnea Plan: Continue with meropenem Patient will need midline for possible IV antibiotics upon discharge. ID team recommendation on the case. Continue gentle hydration Labs and medication were reviewed.. Continue same treatment. Continue with symptomatic treatment. Resume home medication. Monitor labs and vitals. DVT and GI prophylaxis. Further recommendations as per clinical course of the patient DVT prophylaxis: eliquis GI Prophylaxis: Ppi Prognosis is guarded
[2023-07-08] MEDS ORDERED: busPIRone HCl 10 MG TAB PO STA (10:37)
[2023-07-08] MEDS: HYDROCORTISONE 20 MG TAB PO SCH (10:38)
[2023-07-08] MEDS: SODIUM CHLORIDE 0.9% 1,000 ML IV SCH ×2 (15:35→21:45)
--- NOTE | 2023-07-08 15:36 | P.PN ---
Subjective Progress Note Date: 07/08/23 Principal diagnosis: Urinary tract infection Patient is a 53-year-old female with a past medical history significant for fibromyalgia hyperlipidemia memory impairment pneumonia COPD history of recurrent UTI patient presenting to the hospital concerning for urinary burning frequency suprapubic and flank pain and fever , failing outpatient oral antibiotic therapy and apparently outpatient antibiotic were positive for ESBL E. coli On today's evaluation that is 07/08/2023, the patient remains to be afebrile , the patient is breathing comfortably on room air and denies any shortness of breath, the patient denies any chest pain cough or sputum production, patient denies further nausea/vomiting/ diarrhea and no abdominal pain , did have a bowel movement Patient white count is 9.68 creatinine 0.7 as of 07/06/2023, urine culture with ESBL E. coli Objective - Vital Signs Vital signs: Vital Signs Temp 97.9 F 07/08/23 12:59 Pulse 83 07/08/23 12:59 Resp 18 07/08/23 12:59 BP 99/64 07/08/23 12:59 Pulse Ox 92 L 07/08/23 12:59 FiO2 Intake & Output 07/07/23 07/08/23 07/08/23 18:59 06:59 18:59 Other: Voiding Method Toilet Toilet Toilet # Voids 4 3 # Bowel Movements 1 1 - Exam GENERAL DESCRIPTION: A middle-age female lying in bed in no distress RESPIRATORY SYSTEM: Unlabored breathing , clear to auscultation anteriorly HEART: S1 S2 regular rate and rhythm , ABDOMEN: Soft , no tenderness EXTREMITIES: No edema feet - Labs CBC & Chem 7: 07/06/23 06:26 07/06/23 06:26 Assessment and Plan (1) UTI due to extended-spectrum beta lactamase (ESBL) producing Escherichia coli Current Visit: Yes Status: Acute Code(s): N39.0 - URINARY TRACT INFECTION, SITE NOT SPECIFIED; B96.29 - OTH ESCHERICHIA COLI THE CAUSE OF DISEASES CLASSD ELSWHR; Z16.12 - EXTENDED SPECTRUM BETA LACTAMASE (ESBL) RESISTANCE SNOMED Code(s): 485931268 Plan: 1patient presented to hospital with symptomatic urinary tract infection failing outpatient oral antibiotic therapy apparently outpatient culture positive for ESBL E. coli patient did have elevated white count positive UA and urinary symptoms likely symptomatic urinary tract infection 2-ultrasound the kidney bladder area with no evidence of any structural abnormality 3patient urine cultures has been finalized with ESBL E. coli 4-patient to continue the meropenem , we will order a midline for the morning and patient will need 8 days of IV Invanz on discharge Dictation was produced using [email or web address] dictation software. please excuse any grammatical, word or spelling errors. Time with Patient: Less than 30
[2023-07-08] MEDS: ACETAMINOPHEN TAB 325 MG TAB PO PRN (19:55)
[2023-07-08] MEDS: traZODone HCL 100 MG TAB PO SCH (21:41)
[2023-07-08] MEDS: AMITRIPTYLINE HCL 50 MG TAB PO SCH (21:41)
[2023-07-09] MEDS: LEVOTHYROXINE 100 MCG TAB PO SCH (05:39)
[2023-07-09] MEDS: oxyCODONE-APAP 10-325MG 1 EACH TAB PO PRN ×2 (05:39→11:22)
[2023-07-09] MEDS: PANTOPRAZOLE 40 MG TABLET PO SCH (05:39)
[2023-07-09] MEDS: tiZANidine 4 MG TAB PO PRN (05:39)
[2023-07-09 07:46] VITALS: BP 130/84; PULSE 98; RESP 17; TEMP 98.2
[2023-07-09] MEDS ORDERED: ERGOCALCIFEROL 1,250 MCG (50,000 IU) CAPSULE PO SCH (09:00)
[2023-07-09] MEDS: MEROPENEM 1 GM in SODIUM CHLORIDE 0.9% 100 ML IVPB SCH (09:28)
[2023-07-09] MEDS: buPROPion XL 300 MG TAB.ER.24H PO SCH (09:29)
[2023-07-09] MEDS: busPIRone HCl 10 MG TAB PO SCH (09:29)
[2023-07-09] MEDS: PHENAZOPYRIDINE 100 MG TAB PO SCH (09:30)
[2023-07-09] MEDS: PREGABALIN 100 MG CAP PO SCH (09:30)
[2023-07-09] MEDS: NON FORMULARY DRUG (Cariprazine Hcl [Vraylar] 1.5 MG Capsule) PO SCH (09:30)
[2023-07-09] MEDS: HYDROCORTISONE 20 MG TAB PO SCH (09:30)
[2023-07-09] MEDS: DULoxetine HCL 60 MG CAPSULE.DR PO SCH (09:30)
[2023-07-09] MEDS: DICYCLOMINE 10 MG CAP PO SCH (09:30)
[2023-07-09] MEDS: MORPHINE SULFATE ER 15 MG TABLET PO SCH (09:31)
[2023-07-09] MEDS: SENNOSIDES-DOCUSATE SODIUM 1 EACH TAB PO SCH (09:31)
[2023-07-09] MEDS: APIXABAN 5 MG TAB PO SCH (09:31)
[2023-07-09] MEDS: ONDANSETRON 4 MG/2 ML VIAL IVP PRN (09:36)
[2023-07-09] MEDS ORDERED: METOCLOPRAMIDE 5 MG/ML 2 ML VIAL IVP STA (10:27)
[2023-07-09] MEDS ORDERED: polyethylene glycoL 3350 17 GM POWD.PACK PO SCH (10:30)
[2023-07-09] MEDS: SODIUM CHLORIDE 0.9% 1,000 ML IV SCH (11:20)
[2023-07-09] MEDS ORDERED: ERTAPENEM 1 GM in SODIUM CHLORIDE 0.9% 50 ML IVPB STA (11:36)
--- NOTE | 2023-07-09 12:26 | P.PN ---
Subjective Progress Note Date: 07/09/23 Principal diagnosis: Urinary tract infection Patient is a 53-year-old female with a past medical history significant for fibromyalgia hyperlipidemia memory impairment pneumonia COPD history of recurrent UTI patient presenting to the hospital concerning for urinary burning frequency suprapubic and flank pain and fever , failing outpatient oral antibiotic therapy and apparently outpatient antibiotic were positive for ESBL E. coli On today's evaluation that is 07/09/2023, the patient continues to be afebrile , the patient is not requiring any supplemental oxygen and is breathing comfortably on room air , the patient denies any chest pain no cough or sputum production, patient denies Abdominal pain and denies any nausea/vomiting/no diarrhea has been reported Patient white count is 9.68 creatinine 0.7 as of 07/06/2023 no lab drawn today, urine culture with ESBL E. coli Objective - Vital Signs Vital signs: Vital Signs Temp 98.2 F 07/09/23 07:25 Pulse 98 07/09/23 07:25 Resp 17 07/09/23 07:25 BP 130/84 07/09/23 07:25 Pulse Ox 90 L 07/09/23 07:25 FiO2 Intake & Output 07/08/23 07/09/23 07/09/23 18:59 06:59 18:59 Other: Voiding Method Toilet Toilet # Voids 5 2 - Exam GENERAL DESCRIPTION: A middle-age female lying in bed in no distress RESPIRATORY SYSTEM: Unlabored breathing , clear to auscultation anteriorly HEART: S1 S2 regular rate and rhythm , ABDOMEN: Soft , no tenderness EXTREMITIES: No edema feet - Labs CBC & Chem 7: 07/06/23 06:26 07/06/23 06:26 Assessment and Plan (1) UTI due to extended-spectrum beta lactamase (ESBL) producing Escherichia coli Current Visit: Yes Status: Acute Code(s): N39.0 - URINARY TRACT INFECTION, SITE NOT SPECIFIED; B96.29 - OTH ESCHERICHIA COLI THE CAUSE OF DISEASES CLASSD ELSWHR; Z16.12 - EXTENDED SPECTRUM BETA LACTAMASE (ESBL) RESISTANCE SNOMED Code(s): 450509327 Plan: 1patient presented to hospital with symptomatic urinary tract infection failing outpatient oral antibiotic therapy apparently outpatient culture positive for ESBL E. coli patient did have elevated white count positive UA and urinary symptoms likely symptomatic urinary tract infection 2-ultrasound the kidney bladder area with no evidence of any structural abnormality 3patient urine cultures has been finalized with ESBL E. coli 4Patient did not the midline we will transition antibiotics to Invanz and prescription for outpatient Invanz was provided to the case work aide Dictation was produced using [employer] dictation software. please excuse any grammatical, word or spelling errors. Time with Patient: Less than 30
[2023-07-09 13:33] VITALS: BMI 35.5
--- NOTE | 2023-07-09 16:05 | P.DS ---
Providers Date of admission: 07/03/23 21:52 Expected date of discharge: 07/09/23 Attending physician: Richy Palomino MD Consults: 07/03/23 21:50 Consult Physician Routine Consulting Provider: Devante Reich Consult Reason/Comments: ESBL UTI Do you want consulting provider notified?: Yes Primary care physician: Richy Palomino MD Hospital Course: Final Diagnoses: Acute UTI, ESBL, failed outpatient treated Dehydration Hypotension secondary to the above, resolved with IV fluid hydration MS Lumbar DDD Hospital course:Karlos Rojo is a 53 yo F with past medical history hx si gnificant for UTI with sepsis, MS, chronic back pain, laminectomy/decompression, fibromyalgia gastroesophageal reflux disease, COPD and multiple other medical issues presented to the ER with complaints of ongoing UTI ,"never improved since last IP admission." History of E. coli 04/20/2022 urine culture resistant to ampicillin, gentamicin and Bactrim . UA from 05/31/2023 reported negative nitrates, large leukocytes, 62 WBCs, few WBC clumps, occasional bacteria and patient was treated with IV antibiotics.Reports she continued to have dysuria chills, sweats, nausea, right flank pain. UA currently reporting positive nitrates, large leukocytes, greater than 100 urine WBCs, many WBC clumps. Urine culture pending. IV antibiotics initiated in the ER. Received IV fluid hydration for soft blood pressures. Afebrile, WBC 16.2, hemoglobin 14.5, platelets 338. Chemistry panel unremarkable. Denies chest pain, palpitations or shortness of breath. Maintaining O2 sats in the high 90s on room air. 07/05/2023 maintained on IV Merrem as per infectious disease. Afebrile, WBC 10.16, renal function stable. Urine culture in progress. Reports decreased severity of chills, sweats, bladder spasms/abdominal /right flank pain, nausea with current med regimen. Denies chest pain, palpitations or shortness of breath. Evaluated and treated by infectious disease for ESBL UTI. Maintained on Merrem, transitioned to Invanz. Significant clinical improvement. Afebrile. Has been cleared for discharge as per infectious disease pending midline placement. Patient will be discharged home today in a stable condition with guarded prognosis, today pending midline placement. Microbiology 07/03/23 18:53 Urine,Clean Catch Urine Culture - Final Escherichia coli The impression and plan of care has been dictated as directed. : I performed a history and examination of this patient, discussed the same with the dictator. I agree with the dictator's note ,documented as a scribe. Any additional findings or plans will be noted. Patient Condition at Discharge: Stable Plan - Discharge Summary Discharge Rx Participant: No New Discharge Prescriptions: New Ertapenem [INVanz] 1 gm IVPB Q24H #8 each Sennosides-Docusate Sodium [Senokot-S] 1 each PO BID tab Continue DULoxetine HCL [Cymbalta] 60 mg PO BID traZODone HCL 100 mg PO HS Apixaban [Eliquis] 5 mg PO Q12H Morphine Sulfate ER [Ms Contin] 15 mg PO Q12H Hydrocortisone [Cortef] 20 mg PO DAILY Hydrocortisone [Cortef] 10 mg PO HS buPROPion XL [Wellbutrin XL] 300 mg PO DAILY Amitriptyline HCl [Elavil] 100 mg PO HS Albuterol Sulfate [Proair Hfa] 2 puff INHALATION RT-Q6H PRN PRN Reason: Shortness Of Breath Cariprazine HCl [Vraylar] 1.5 mg PO DAILY Levothyroxine Sodium [Synthroid] 100 mcg PO DAILY oxyCODONE-APAP 10-325MG [Percocet 10-325 mg] 1 tab PO TID Pregabalin [Lyrica] 200 mg PO TID Semaglutide [Ozempic] 1 mg SQ MO Tiotropium Br/Olodaterol HCl [Stiolto Respimat Inhal [place]] 2 puff INHALATION RT-DAILY Varenicline [Chantix Starter Pack] See Taper PO DIRECTED Ascorbic Acid [Vitamin C] 1,000 mg PO DAILY Calcium Carbonate [Calcium] 600 mg PO DAILY Omeprazole 20 mg PO DAILY Ergocalciferol [Vitamin D2 (1250 Mcg = 99681 Iu)] 1,250 mcg PO MO Acetaminophen [Tylenol] 975 mg PO Q8H PRN PRN Reason: Pain Meloxicam [Mobic] 15 mg PO DAILY Orphenadrine Citrate [Orphenadrine Citrate ER] 100 mg PO BID PRN PRN Reason: Muscle Spasm Phentermine HCl [Adipex-P] 37.5 mg PO AC-BRKFST Naloxone HCl [Narcan] 4 mg NASAL ONCE PRN PRN Reason: overdose Ketorolac [Toradol] 10 mg PO Q6HR PRN PRN Reason: Pain ALPRAZolam [Xanax] 0.5 mg PO TID PRN PRN Reason: Anxiety Celecoxib [CeleBREX] 200 mg PO DAILY Multivitamins, Thera [Multivitamin (formulary)] 1 tab PO DAILY ondansetron HCL [Zofran] 8 mg PO Q8HR PRN PRN Reason: Nausea Discontinued metroNIDAZOLE 0.75% CREAM [Metrocream 0.75%] 1 applic TOPICAL HS Fluconazole [Diflucan] 150 mg PO Q48H Discharge Medication List DULoxetine HCL [Cymbalta] 60 mg PO BID 04/01/19 [History] traZODone HCL 100 mg PO HS 12/03/19 [History] Apixaban [Eliquis] 5 mg PO Q12H 12/17/19 [History] Hydrocortisone [Cortef] 20 mg PO DAILY 10/07/20 [History] Morphine Sulfate ER [Ms Contin] 15 mg PO Q12H 10/07/20 [History] Hydrocortisone [Cortef] 10 mg PO HS 04/26/21 [History] Acetaminophen [Tylenol] 975 mg PO Q8H PRN 05/05/22 [History] Albuterol Sulfate [Proair Hfa] 2 puff INHALATION RT-Q6H PRN 05/05/22 [History] Amitriptyline HCl [Elavil] 100 mg PO HS 05/05/22 [History] Ergocalciferol [Vitamin D2 (1250 Mcg = 95593 Iu)] 1,250 mcg PO MO 05/05/22 [History] Omeprazole 20 mg PO DAILY 05/05/22 [History] buPROPion XL [Wellbutrin XL] 300 mg PO DAILY 05/05/22 [History] ALPRAZolam [Xanax] 0.5 mg PO TID PRN 05/31/23 [History] Ascorbic Acid [Vitamin C] 1,000 mg PO DAILY 05/31/23 [History] Calcium Carbonate [Calcium] 600 mg PO DAILY 05/31/23 [History] Cariprazine HCl [Vraylar] 1.5 mg PO DAILY 05/31/23 [History] Celecoxib [CeleBREX] 200 mg PO DAILY 05/31/23 [History] Ketorolac [Toradol] 10 mg PO Q6HR PRN 05/31/23 [History] Levothyroxine Sodium [Synthroid] 100 mcg PO DAILY 05/31/23 [History] Meloxicam [Mobic] 15 mg PO DAILY 05/31/23 [History] Multivitamins, Thera [Multivitamin (formulary)] 1 tab PO DAILY 05/31/23 [History] Naloxone HCl [Narcan] 4 mg NASAL ONCE PRN 05/31/23 [History] Orphenadrine Citrate [Orphenadrine Citrate ER] 100 mg PO BID PRN 05/31/23 [History] Phentermine HCl [Adipex-P] 37.5 mg PO AC-BRKFST 05/31/23 [History] Pregabalin [Lyrica] 200 mg PO TID 05/31/23 [History] Semaglutide [Ozempic] 1 mg SQ MO 05/31/23 [History] Tiotropium Br/Olodaterol HCl [Stiolto Respimat Inhal [place]] 2 puff INHALATION RT-DAILY 05/31/23 [History] Varenicline [Chantix Starter Pack] See Taper PO DIRECTED 05/31/23 [History] oxyCODONE-APAP 10-325MG [Percocet 10-325 mg] 1 tab PO TID 05/31/23 [History] ondansetron HCL [Zofran] 8 mg PO Q8HR PRN 07/03/23 [History] Ertapenem [INVanz] 1 gm IVPB Q24H #8 each 07/08/23 [Rx] Sennosides-Docusate Sodium [Senokot-S] 1 each PO BID tab 07/09/23 [Rx] Follow up Appointment(s)/Referral(s): Richy Palomino MD [Primary Care Provider] - 07/11/23 2:30 pm (At [place] office with shar) [facility], [NON-STAFF] - As Needed [facility], [REFERRING] - As Needed Devante Reich MD [STAFF PHYSICIAN] - 1 Week (Please call office after discharge) Discharge Disposition: HOME WITH HOME HEALTH SERVICES
== END 2023-07-09 13:28 | disposition home health service (06) | DRG 690 ==
LOC: EC 17:06 → 4SSUR 21:52
PROVIDERS: ADMIT Family Medicine; ATTEND Family Medicine
PROC: 05HF33Z Insertion of Infusion Device into Left Cephalic Vein, Percutaneous Approach (ICD-10-PCS; principal; 2023-07-09 11:00)
DX: N39.0 Urinary tract infection, site not specified (principal); Z16.12 Extended spectrum beta lactamase (ESBL) resistance; D68.51 Activated protein C resistance; Z16.24 Resistance to multiple antibiotics; B96.20 Unspecified Escherichia coli [E. coli] as the cause of diseases classified elsewhere; M79.7 Fibromyalgia; G47.33 Obstructive sleep apnea (adult) (pediatric); E78.5 Hyperlipidemia, unspecified; J44.9 Chronic obstructive pulmonary disease, unspecified; H91.90 Unspecified hearing loss, unspecified ear; M19.91 Primary osteoarthritis, unspecified site; K44.9 Diaphragmatic hernia without obstruction or gangrene; G89.29 Other chronic pain; M54.9 Dorsalgia, unspecified; G47.00 Insomnia, unspecified; G47.10 Hypersomnia, unspecified; G62.9 Polyneuropathy, unspecified; E86.0 Dehydration; I95.9 Hypotension, unspecified; M51.36 Other intervertebral disc degeneration, lumbar region; G35 Multiple sclerosis; F17.210 Nicotine dependence, cigarettes, uncomplicated; F32.A Depression, unspecified; F41.9 Anxiety disorder, unspecified; N32.89 Other specified disorders of bladder; F90.9 Attention-deficit hyperactivity disorder, unspecified type; I11.0 Hypertensive heart disease with heart failure; I50.9 Heart failure, unspecified; Z71.3 Dietary counseling and surveillance; Z87.01 Personal history of pneumonia (recurrent); Z87.440 Personal history of urinary (tract) infections; Z86.718 Personal history of other venous thrombosis and embolism; Z79.899 Other long term (current) drug therapy; Z79.890 Hormone replacement therapy; Z79.1 Long term (current) use of non-steroidal anti-inflammatories (NSAID); Z79.01 Long term (current) use of anticoagulants
CPT/HCPCS: 36410; 36415; 76770; 76937; 80048; 80053; 81001; 85025; 87077; 87086; 87186; 96365; 96366; 96375; 99285

== ENCOUNTER → 2023-09-11 | Outpatient (CLI) | payer MEDICARE, OTHER ==
--- NOTE | 2023-09-13 09:22 | MR ---
EXAMINATION TYPE: MR brain/cspine wo/w DATE OF EXAM: 09/11/2023 COMPARISON: Prior CT brain and cervical spine October 07, 2020. Prior MRI brain and cervical spine J anuary 2018 HISTORY: Multiple sclerosis TECHNIQUE: Multiplanar, multisequence images of the brain and brainstem along the cervical spine are all perform ed without and with IV contrast, utilizing 10.5 mL intravenous Gadavist gadolinium contrast is admini stered intravenously. Demyelinating disease protocol with additional Sagittal Flair sequence perform ed. FINDINGS: BRAIN: T2 Lesions Present : Yes Approximate Number of Lesions: Approximately 30-40 Locations Identified : Scattered Size of Reference Lesion(s): 10 x 5 x 11 mm lesion axial image 21 and sagittal image 176 right periventricular level is stable. Enhancing Lesion(s) Present: No T1 Hypointense Lesion(s) Present: Yes Change from Prior: Stable Diffusion weighted images demonstrate no evidence of a recent infarct or other diffusion abnormality. There is no worrisome extra-axial fluid collection. The ventricular system and cisternal spaces ar e normal in size and appearance. The brain volume is age appropriate. Midline structures demonstrate normal morphology. The craniocervical junction appears within normal limits. Post contrast images demonstrate no abnormal enhancement. The dural venous sinuses appear pa tent. The visualized sinuses are clear and the globes are intact. IMPRESSION: Moderate nonspecific white matter changes redemonstrated likely on the basis of known mul tiple sclerosis. No significant new or enhancing lesions are present. C-SPINE: FINDINGS: Suboptimal study due to patient motion as patient kept falling asleep per technologist. Sag ittal images of the cervical spine show the craniocervical junction to remain within normal limits. The cervical and upper thoracic spinal cord is normal in caliber and signal.. There is grade 1 retrol isthesis C6 on C7 redemonstrated. The vertebral body heights remain normal. Mild to moderate spurrin g and disc space narrowing at C5-C6 and C6-C7 levels is redemonstrated The bone marrow signal intensi ty is within normal limits. No suspicious postcontrast enhancement is seen. Axial images show C2-C3 level to appear within normal limits. Axial images at C3-C4 level shows more prominent left-sided uncovertebral facet degenerative change c ausing moderate left-sided neural foraminal narrowing. Axial images at C4-C5 level show uncovertebral facet degenerative changes bilaterally causing moderat e left-sided neural foraminal narrowing. Axial images at C5-C6 level broad-based posterior disc protrusion effacing the anterior thecal sac an d causing mild bilateral neural foraminal narrowing. Axial images at C6-C7 level shows broad-based right paracentral disc protrusion effacing the anterior thecal sac and causing mild to moderate bilateral neural foraminal narrowing. Axial images at C7-T1 level remain within normal limits. IMPRESSION: No MRI evidence for demyelinating disease involvement in the cervical spinal cord. No rosaline picious enhancement or enhancing lesions. Multilevel degenerative change is redemonstrated as detaile d above.
== END | disposition home or self-care (01) ==
LOC: RADMRIMAIN 17:26
PROVIDERS: ATTEND Surgery
DX: G35 Multiple sclerosis (principal); M47.812 Spondylosis without myelopathy or radiculopathy, cervical region; M50.31 Other cervical disc degeneration, high cervical region
CPT/HCPCS: 70553; 72156; A9585

== ENCOUNTER → 2023-09-12 | Outpatient (CLI) | payer MEDICARE, OTHER ==
--- NOTE | 2023-09-14 14:27 | MR ---
EXAMINATION TYPE: MR thoracic spine wo/w con DATE OF EXAM: 09/12/2023 7:34 PM CLINICAL INDICATION:Female, 53 years old with history of G35, MS, Prior imaging in [facility] COMPARISON: 11/05/2020, 09/19/2018 TECHNIQUE: Multi planar, multi sequence imaging was performed utilizing: T1-weighted, short-tau inver dona recovery and T2-weighted of the thoracic spine. IV Contrast: 10.5 cc Gadavist (none if empty) FINDINGS: Alignment: Alignment is within normal limits. Vertebral bodies have preserved heights. Spinal cord: Spinal cord is within normal limits for signal. No abnormal postcontrast enhancement. Discs: Intervertebral disc signal is maintained. No evidence of significant spinal canal or neural fo raminal stenosis. There is no evidence of extradural defects or central spinal canal narrowing at any thoracic vertebral body level no abnormal postcontrast enhancement. Osseous structures: Mild osteophyte formation disc space narrowing and facet joint arthropathy throug hout the spine. No abnormal bony edema on inversion recovery sequences. Multilevel osteophyte formati on and facet joint arthropathy. Scattered disc space narrowing. No abnormal postcontrast enhancement. IMPRESSION: 1. No evidence for demyelination. 2. Mild degeneration changes throughout the spine without significant spinal canal or neural foramin al stenosis.
== END | disposition home or self-care (01) ==
LOC: RADMRIMAIN 16:52
PROVIDERS: ATTEND Surgery
DX: G35 Multiple sclerosis (principal); M47.814 Spondylosis without myelopathy or radiculopathy, thoracic region
CPT/HCPCS: 72157; A9585

== ENCOUNTER → 2023-09-13 | Outpatient (CLI) | payer MEDICARE, OTHER ==
[2023-09-13 18:19] LABS: Basophils # (A) 0.07 X 10*3/uL (0.00-0.10); Basophils % (A) 0.4 %; Eosinophils # (A) 0.19 X 10*3/uL (0.04-0.35); Eosinophils % (A) 1.2 %; HGB 13.9 g/dL (12.0-15.0); Lymphocytes # (A) 2.18 X 10*3/uL (0.90-5.00); Lymphocytes % (A) 13.3 %; MCH 24.8 pg (27.0-32.0); MCHC 30.9 g/dL (32.0-37.0); MCV 80.4 FL (80.0-97.0); Mean Platelet Volume 9.6 FL (9.5-12.2); Monocytes # (A) 0.76 X 10*3/uL (0.20-1.00); Monocytes % (A) 4.6 %; NRBC Per 100 WBC 0 X 10*3/uL (0.00-0.01); Neutrophils # (A) 12.94 X 10*3/uL (1.80-7.70); Neutrophils % (A) 79.2 %; Platelet Count 294 X 10*3/uL (140-440); RDW 16.6 % (11.5-14.5); WBC 16.35 X 10*3/uL (4.50-10.00)
[2023-09-13 18:43] LABS: Hepatitis A Antibody IgM Nonreactive; Hepatitis B Core IgM Nonreactive; Hepatitis B Surface Antigen Nonreactive; Hepatitis C IgG Antibody Nonreactive
[2023-09-13 18:47] LABS: ALT 26 U/L (8-44); AST 18 U/L (13-35); Albumin 4.6 g/dL (3.8-4.9); Albumin/Globulin Ratio 2.19 Ratio (1.60-3.17); Alkaline Phosphatase 99 U/L (41-126); BUN/Creat Ratio 22.62 Ratio (12.00-20.00); Blood Urea Nitrogen 18.1 mg/dL (9.0-27.0); Calcium 9.9 mg/dL (8.7-10.3); Chloride 98 mmol/L (96-109); Globulin 2.1 g/dL (1.6-3.3); Glucose 112 mg/dL (70-110); Potassium 4.2 mmol/L (3.5-5.5); Sodium 139 mmol/L (135-145); T4, Free (Free Thyroxine) 1.18 ng/dL (0.80-1.80); Total Bilirubin 0.2 mg/dL (0.3-1.2); Total Protein 6.7 g/dL (6.2-8.2)
[2023-09-13 21:49] LABS: HIV 2 AB Non-Reactive (Non-Reactive); HIV AB P24 Non-Reactive (Non-Reactive); HIV P24 AG Non-Reactive (Non-Reactive)
== END | disposition home or self-care (01) ==
LOC: LABWHC1 13:47
PROVIDERS: ATTEND Psychiatry & Neurology Pain Medicine
DX: G35 Multiple sclerosis (principal)
CPT/HCPCS: 36415; 80053; 80074; 82306; 82607; 84207; 84439; 84443; 84481; 84591; 85025; 87390

== ENCOUNTER 2023-10-01 18:30 | Inpatient (IN) | payer MEDICARE, OTHER ==
--- NOTE | 2023-10-01 18:55 | ED ---
General Adult HPI - General Source: patient Mode of arrival: ambulatory Limitations: no limitations <Becky Leavitt - Last Filed: 10/01/23 18:54> <Tom Morgan - Last Filed: 10/01/23 21:20> - General Stated complaint: weakness infection Time Seen by Provider: 10/01/23 18:54 - History of Present Illness Initial comments: 53-year-old female who was sent by her PCP for recurrent UTI. She was told that she needs IV antibiotics by her PCP. (Becky Leavitt) Dictation was produced using [employer] dictation software. please excuse any grammatical, word or spelling errors. Chief Complaint: 53-year-old female presents with UTI. She has a history of ESBL History of Present Illness: 53-year-old female presents to the emergency department for UTI. She has been dealing with UTI symptoms for 1 month. She has history of ESBL. A week ago she completed course of meropenem. Patient had ESBL in the past and required several days of PICC line IV therapy at home. Denies any flank pain. She does have some urinary frequency and suprapubic discomfort. The ROS documented in this emergency department record has been reviewed and confirmed by me. Those systems with pertinent positive or negative responses h ave been documented in the HPI. All other systems are other negative and/or noncontributory. (Tom Morgan) - Related Data Home Medications Medication Instructions Recorded Confirmed DULoxetine HCL [Cymbalta] 60 mg PO BID 04/01/19 07/03/23 traZODone HCL 100 mg PO HS 12/03/19 07/03/23 Apixaban [Eliquis] 5 mg PO Q12H 12/17/19 07/03/23 Hydrocortisone [Cortef] 20 mg PO DAILY 10/07/20 07/03/23 Morphine Sulfate ER [Ms Contin] 15 mg PO Q12H 10/07/20 07/03/23 Hydrocortisone [Cortef] 10 mg PO HS 04/26/21 07/03/23 Acetaminophen [Tylenol] 975 mg PO Q8H PRN 05/05/22 07/03/23 Albuterol Sulfate [Proair Hfa] 2 puff INHALATION RT-Q6H PRN 05/05/22 07/03/23 Amitriptyline HCl [Elavil] 100 mg PO HS 05/05/22 07/03/23 Ergocalciferol [Vitamin D2 (1250 1,250 mcg PO MO 05/05/22 07/03/23 Mcg = 54947 Iu)] Omeprazole 20 mg PO DAILY 05/05/22 07/03/23 buPROPion XL [Wellbutrin XL] 300 mg PO DAILY 05/05/22 07/03/23 ALPRAZolam [Xanax] 0.5 mg PO TID PRN 05/31/23 07/03/23 Ascorbic Acid [Vitamin C] 1,000 mg PO DAILY 05/31/23 07/03/23 Calcium Carbonate [Calcium] 600 mg PO DAILY 05/31/23 07/03/23 Cariprazine HCl [Vraylar] 1.5 mg PO DAILY 05/31/23 07/03/23 Celecoxib [CeleBREX] 200 mg PO DAILY 05/31/23 07/03/23 Ketorolac [Toradol] 10 mg PO Q6HR PRN 05/31/23 07/03/23 Levothyroxine Sodium [Synthroid] 100 mcg PO DAILY 05/31/23 07/03/23 Meloxicam [Mobic] 15 mg PO DAILY 05/31/23 07/03/23 Multivitamins, Thera [Multivitamin 1 tab PO DAILY 05/31/23 07/03/23 (formulary)] Naloxone HCl [Narcan] 4 mg NASAL ONCE PRN 05/31/23 07/03/23 Orphenadrine Citrate [Orphenadrine 100 mg PO BID PRN 05/31/23 07/03/23 Citrate ER] Phentermine HCl [Adipex-P] 37.5 mg PO AC-BRKFST 05/31/23 07/03/23 Pregabalin [Lyrica] 200 mg PO TID 05/31/23 07/03/23 Semaglutide [Ozempic] 1 mg SQ MO 05/31/23 07/03/23 Tiotropium Br/Olodaterol HCl 2 puff INHALATION RT-DAILY 05/31/23 07/03/23 [Stiolto Respimat Inhal [place]] Varenicline [Chantix Starter Pack] See Taper PO DIRECTED 05/31/23 07/03/23 oxyCODONE-APAP 10-325MG [Percocet 1 tab PO TID 05/31/23 07/03/23 10-325 mg] ondansetron HCL [Zofran] 8 mg PO Q8HR PRN 07/03/23 07/03/23 Previous Rx's Medication Instructions Recorded Ertapenem [INVanz] 1 gm IVPB Q24H #8 each 07/08/23 Sennosides-Docusate Sodium 1 each PO BID tab 07/09/23 [Senokot-S] Allergies Allergy/AdvReac Type Severity Reaction Status Date / Time amoxicillin [From Augmentin] Allergy Diarrhea, Verified 10/01/23 19:01 hives clavulanic acid Allergy Diarrhea, Verified 10/01/23 19:01 [From Augmentin] hives doxycycline Allergy Rash/Hives Verified 10/01/23 19:01 glatiramer (copolymer 1) Allergy Rapid Verified 10/01/23 19:01 [From Copaxone] Heart Rate,hives, skin flushing sulfamethoxazole Allergy blisters Verified 10/01/23 19:01 [From Bactrim] in mouth, rash/hives trimethoprim [From Bactrim] Allergy blisters Verified 10/01/23 19:01 in mouth, rash/hives steroids AdvReac genital Uncoded 10/01/23 19:01 burning & rashes but still takes steroids. Review of Systems ROS Other: All systems not noted in ROS Statement are negative. <Becky Leavitt - Last Filed: 10/01/23 18:54> ROS Other: All systems not noted in ROS Statement are negative. <Tom Morgan - Last Filed: 10/01/23 21:20> ROS Statement: Those systems with pertinent positive or pertinent negative responses have been documented in the HPI. Past Medical History Past Medical History: Asthma, Blood Disorder, Heart Failure, COPD, Deep Vein Thrombosis (DVT), Eye Disorder, Fibromyalgia, GERD/Reflux, Hearing Disorder / Deafness, Hyperlipidemia, Memory Impairment, Musculoskeletal Disorder, Neurologic Disorder, Osteoarthritis (OA), Pneumonia, Renal Disease, Skin Disorder, Sleep Apnea/CPAP/BIPAP, Syncope, Thyroid Disorder Additional Past Medical History / Comment(s): Multiple sclerosis, factor 5 leiden, RUBI-no device, DVT L leg 2014, hiatal hernia, hoarseness/leukoplakia, adrenal insufficiency/chronic steroid use/pituitary tumor, migraines, DJD, chronic back pain, bursitis, optic neuritis bilaterally, glaucoma , tinnitis, rosacea, insomnia, hypersomnia. bilat CTS, peripheral neuropathy, vertigo. hx infection at back surgery site. History of Any Multi-Drug Resistant Organisms: ESBL Date of last positivie culture/infection: 07/03/23 ESBL MDRO Source:: Urine Past Surgical History: Back Surgery, Bladder Surgery, Section, Cholecystectomy, Tubal Ligation Additional Past Surgical History / Comment(s): 09/24/18 bladder stimulator, redone 09/2020. 02/05/19 microlarygoscopy/bx, vocal cord polypectomies, cervical bx, bladder suspension, EGD with bx, colonoscopy,. Laminectomy w/ decompression (01/09/20), Drainage of seroma back (02/02/20), removal spinal hardware, I&D back wound,. PICC line. Past Anesthesia/Blood Transfusion Reactions: Motion Sickness Additional Past Anesthesia/Blood Transfusion Reaction / Comment(s): occasional bad headaches. Past Psychological History: ADD/ADHD, Anxiety, Depression Additional Psychological History / Comment(s): . Smoking Status: Current every day smoker Past Alcohol Use History: None Reported Additional Past Alcohol Use History / Comment(s): 1 ppd smoker since 1981---has cut back to 1/2 ppd Past Drug Use History: None Reported Additional Drug Use History / Comment(s): occ marijuana use- - Past Family History Brother(s) Family Medical History: Deep Vein Thrombosis (DVT) Father Family Medical History: Deep Vein Thrombosis (DVT) Additional Family Medical History / Comment(s): Patient states that her father has no cardiac history but his father had previous [place]'s. Mother Family Medical History: Cancer, Deep Vein Thrombosis (DVT), Pulmonary Embolus Additional Family Medical History / Comment(s): Cervical cancer. <eBcky Leavitt - Last Filed: 10/01/23 18:54> General Exam <Becky Leavitt - Last Filed: 10/01/23 18:54> <Tom Morgan - Last Filed: 10/01/23 21:20> - General Exam Comments Initial Comments: Visual Physical Exam Vital signs reviewed General: Well-appearing, nontoxic, no acute distress. Head: Normocephalic, atraumatic Eyes: PERRLA, EOMI ENT: Airway patent Chest: Nonlabored breathing Skin: No visual rash, normal skin tone Neuro: Alert and oriented 3 Musculoskeletal: No gross abnormalities (Becky Leavitt) Visual Physical Exam Vital signs reviewed General: Well-appearing, nontoxic, no acute distress. Head: Normocephalic, atraumatic Eyes: PERRLA, EOMI ENT: Airway patent Chest: Nonlabored breathing Abdomen: Soft to palpation Skin: No visual rash, normal skin tone Neuro: Alert and oriented 3 Musculoskeletal: No gross abnormalities (Tom Morgan) Course Vital Signs 10/01/23 18:59 Temperature 98.6 F Pulse Rate 110 H Respiratory 20 Rate Blood Pressure 121/60 O2 Sat by Pulse 95 Oximetry Medical Decision Making <Becky Leavitt - Last Filed: 10/01/23 18:54> - Lab Data Result diagrams: 10/01/23 19:50 10/01/23 19:50 <Tom Morgan - Last Filed: 10/01/23 21:20> - Medical Decision Making I performed the quick note portion of this visit, electronically signed Becky Leavitt PA-C (Becky Leavitt) Was pt. sent in by a medical professional or institution ([facility], [employer], urgent care, hospital, or fpc...) When possible be specific @ -No Did you speak to anyone other than the patient for history (EMS, parent, family, police, friend...)? What history was obtained from this source @ -No Did you review nursing and triage notes (agree or disagree)? Why? @ -I reviewed and agree with nursing and triage notes Were old charts reviewed (outside hosp., previous admission, EMS record, old EKG, old radiological studies, urgent care reports/EKG's, fpc records)? Report findings @ -Previous microbiology results were reviewed showing patient has history of ESBL sensitivity to ertapenem Differential Diagnosis (chest pain, altered mental status, abdominal pain women, abdominal pain men, vaginal bleeding, musculoskeletal, weakness, fever, dyspnea, syncope, headache, dizziness, GI bleed, back pain, seizure, CVA, palpatations, mental health)? @ -Differential Abdominal Pain Women: Appendicitis, Cholecystitis, diverticulosis, ischemic bowel, pancreatitis, hepatitis, UTI, gastroenteritis, AAA, incarcerated hernia, bowel obstruction, constipation, inflammatory bowel, hepatitis, peptic ulcer disease, splenic infarction, perforated viscus, vulvitis, ovarian torsion, PID, kidney stone, placenta abruption, this is not meant to be an all-inclusive list EKG interpreted by me (3pts min.). @ -None done X-rays interpreted by me (1pt min.). @ -None done CT interpreted by me (1pt min.). @ -None done U/S interpreted by me (1pt. min.). @ -None done What testing was considered but not performed or refused? (CT, X-rays, U/S, lab s)? Why? @ -None What meds were considered but not given or refused? Why? @ -None Did you discuss the management of the patient with other professionals (professionals i.e. , PA, [employer], lab, RT, psych nurse, foster care social worker, customer professional, teacher, founder and chief technical officer, case fitter)? Give summary @ -Case discussed with Dr. Palomino for admission Was smoking cessation discussed for >3mins.? @ -No Was critical care preformed (if so, how long)? @ -No Were there social determinants of health that impacted care today? How? (Homelessness, low income, unemployed, alcoholism, drug addiction, transportation, low edu. Level, literacy, decrease access to med. care, usp, rehab)? @ -No Was there de-escalation of care discussed even if they declined (Discuss DNR or withdrawal of care, Hospice)? DNR status @ -No What co-morbidities impacted this encounter? (DM, HTN, Smoking, COPD, CAD, Cancer, CVA, ARF, Chemo, Hep., AIDS, mental health diagnosis, sleep apnea, morbid obesity)? @ -None Was patient admitted / discharged? Hospital course, mention meds given and route, prescriptions, significant lab abnormalities, going to OR and other pertinent info. @ -53-year-old female past medical history of ESBL likely suffering from ESBL UTI again. Vital signs stable. Patient well-appearing no acute distress. G iven her history she will be admitted for IV antibiotics and infectious disease consult. Undiagnosed new problem with uncertain prognosis? @ -No Drug Therapy requiring intensive monitoring for toxicity (Heparin, Nitro, Insulin, Cardizem)? @ -No Were any procedures done? @ -No Diagnosis/symptom? Acute, or Chronic, or Acute on Chronic? Uncomplicated (without systemic symptoms) or Complicated (systemic symptoms)? @ -UTI, suspect ESBL Side effects of treatment? @ -No Exacerbation, Progression, or Severe Exacerbation? @ -No Poses a threat to life or bodily function? How? (Chest pain, [place], [place], pneumonia, PE, COPD, DKA, ARF, appy, cholecystitis, CVA, Diverticulitis, Homicidal, Suicidal, threat to staff... and all critical care pts) @ -yes (Tom Morgan) - Lab Data Lab Results 10/01/23 10/01/23 10/01/23 Range/Units 19:17 19:50 19:50 WBC 16.7 H (3.8-10.6) k/uL RBC 5.17 (3.80-5.40) m/uL Hgb 13.6 (11.4-16.0) gm/dL Hct 41.7 (34.0-46.0) % MCV 80.6 (80.0-100.0) fL MCH 26.2 (25.0-35.0) pg MCHC 32.5 (31.0-37.0) g/dL RDW 15.6 H (11.5-15.5) % Plt Count 329 (150-450) k/uL MPV 7.7 Neutrophils % 80 % Lymphocytes % 15 % Monocytes % 3 % Eosinophils % 1 % Basophils % 0 % Neutrophils # 13.3 H (1.3-7.7) k/uL Lymphocytes # 2.4 (1.0-4.8) k/uL Monocytes # 0.5 (0-1.0) k/uL Eosinophils # 0.2 (0-0.7) k/uL Basophils # 0.1 (0-0.2) k/uL Hypochromasia Slight Sodium 135 L (137-145) mmol/L Potassium 4.2 (3.5-5.1) mmol/L Chloride 101 (98-107) mmol/L Carbon Dioxide 27 (22-30) mmol/L Anion Gap 7 mmol/L BUN 18 H (7-17) mg/dL Creatinine 0.72 (0.52-1.04) mg/dL Est GFR (CKD-EPI)AfAm >90 (>60 ml/min/1.73 sqM) Est GFR (CKD-EPI)NonAf >90 (>60 ml/min/1.73 sqM) Glucose 103 H (74-99) mg/dL Plasma Lactic Acid Jasbir (0.7-2.0) mmol/L Calcium 9.0 (8.4-10.2) mg/dL Total Bilirubin 0.4 (0.2-1.3) mg/dL AST 19 (14-36) U/L ALT 19 (4-34) U/L Alkaline Phosphatase 94 (38-126) U/L Total Protein 6.4 (6.3-8.2) g/dL Albumin 4.0 (3.5-5.0) g/dL Urine Color Colorless Urine Appearance Cloudy H (Clear) Urine pH 5.0 (5.0-8.0) Ur Specific [place] 1.010 (1.001-1.035) Urine Protein Negative (Negative) Urine Glucose (UA) Negative (Negative) Urine Ketones Negative (Negative) Urine Blood Negative (Negative) Urine Nitrite Positive H (Negative) Urine Bilirubin Negative (Negative) Urine Urobilinogen <2.0 (<2.0) mg/dL Ur Leukocyte Esterase Large H (Negative) Urine RBC 1 (0-5) /hpf Urine WBC 155 H (0-5) /hpf Urine WBC Clumps Few H (None) /hpf Ur Squamous Epith Cells 1 (0-4) /hpf Urine Bacteria Few H (None) /hpf Urine Mucus Rare H (None) /hpf 10/01/23 Range/Units 19:50 WBC (3.8-10.6) k/uL RBC (3.80-5.40) m/uL Hgb (11.4-16.0) gm/dL Hct (34.0-46.0) % MCV (80.0-100.0) fL MCH (25.0-35.0) pg MCHC (31.0-37.0) g/dL RDW (11.5-15.5) % Plt Count (150-450) k/uL MPV Neutrophils % % Lymphocytes % % Monocytes % % Eosinophils % % Basophils % % Neutrophils # (1.3-7.7) k/uL Lymphocytes # (1.0-4.8) k/uL Monocytes # (0-1.0) k/uL Eosinophils # (0-0.7) k/uL Basophils # (0-0.2) k/uL Hypochromasia Sodium (137-145) mmol/L Potassium (3.5-5.1) mmol/L Chloride (98-107) mmol/L Carbon Dioxide (22-30) mmol/L Anion Gap mmol/L BUN (7-17) mg/dL Creatinine (0.52-1.04) mg/dL Est GFR (CKD-EPI)AfAm (>60 ml/min/1.73 sqM) Est GFR (CKD-EPI)NonAf (>60 ml/min/1.73 sqM) Glucose (74-99) mg/dL Plasma Lactic Acid Jasbir 1.7 (0.7-2.0) mmol/L Calcium (8.4-10.2) mg/dL Total Bilirubin (0.2-1.3) mg/dL AST (14-36) U/L ALT (4-34) U/L Alkaline Phosphatase (38-126) U/L Total Protein (6.3-8.2) g/dL Albumin (3.5-5.0) g/dL Urine Color Urine Appearance (Clear) Urine pH (5.0-8.0) Ur Specific [place] (1.001-1.035) Urine Protein (Negative) Urine Glucose (UA) (Negative) Urine Ketones (Negative) Urine Blood (Negative) Urine Nitrite (Negative) Urine Bilirubin (Negative) Urine Urobilinogen (<2.0) mg/dL Ur Leukocyte Esterase (Negative) Urine RBC (0-5) /hpf Urine WBC (0-5) /hpf Urine WBC Clumps (None) /hpf Ur Squamous Epith Cells (0-4) /hpf Urine Bacteria (None) /hpf Urine Mucus (None) /hpf Disposition <Becky Leavitt - Last Filed: 10/01/23 18:54> Decision Time: 21:20 <Tom Morgan - Last Filed: 10/01/23 21:20> Clinical Impression: History of ESBL E. coli infection Disposition: ADMITTED IP TO THIS HOSP Condition: Fair Referrals: Richy Palomino MD [Primary Care Provider] - 1-2 days
[2023-10-01 19:39] LABS: Appearance,Urine Cloudy (Clear); Bacteria,Urine Few /hpf; Bilirubin,Urine Negative (Negative); Blood,Urine Negative (Negative); Color,Urine Colorless; Glucose,Urine (UA) Negative (Negative); Ketones,Urine Negative (Negative); Leukocyte Esterase,Urine Large (Negative); Mucus,Urine Rare /hpf; Nitrite,Urine Positive (Negative); Protein,Urine Negative (Negative); RBC,Urine 1 /hpf (0-5); Squamous Epithelial Cell,Urine 1 /hpf (0-4); Urobilinogen,Urine <2.0 mg/dL (<2.0); WBC,Urine 155 /hpf (0-5)
[2023-10-01 20:27] LABS: Basophils # (A) 0.1 k/uL (0-0.2); Basophils % (A) 0 %; Eosinophils # (A) 0.2 k/uL (0-0.7); Eosinophils % (A) 1 %; HCT 41.7 % (34.0-46.0); HGB 13.6 gm/dL (11.4-16.0); Hypochromasia Slight; Lymphocytes # (A) 2.4 k/uL (1.0-4.8); Lymphocytes % (A) 15 %; MCH 26.2 pg (25.0-35.0); MCHC 32.5 g/dL (31.0-37.0); MCV 80.6 fL (80.0-100.0); Mean Platelet Volume 7.7; Monocytes # (A) 0.5 k/uL (0-1.0); Monocytes % (A) 3 %; Neutrophils # (A) 13.3 k/uL (1.3-7.7); Neutrophils % (A) 80 %; Platelet Count 329 k/uL (150-450); RBC 5.17 m/uL (3.80-5.40); RDW 15.6 % (11.5-15.5); WBC 16.7 k/uL (3.8-10.6)
[2023-10-01 20:39] LABS: ALT 19 U/L (4-34); AST 19 U/L (14-36); African American GFR (CKD) >90 (>60 ml/min/1.73 sqM); Alkaline Phosphatase 94 U/L (38-126); Anion Gap 7 mmol/L; Blood Urea Nitrogen 18 mg/dL (7-17); Carbon Dioxide 27 mmol/L (22-30); Chloride 101 mmol/L (98-107); Glucose 103 mg/dL (74-99); Non-African American GFR(CKD) >90 (>60 ml/min/1.73 sqM); Potassium 4.2 mmol/L (3.5-5.1); Sodium 135 mmol/L (137-145); Total Bilirubin 0.4 mg/dL (0.2-1.3); Total Protein 6.4 g/dL (6.3-8.2)
[2023-10-01] MEDS ORDERED: NALOXONE 0.4 MG/ML 1 ML VIAL IV PRN (21:07)
[2023-10-01] MEDS: ERTAPENEM 1 GM in SODIUM CHLORIDE 0.9% 50 ML IVPB STA (21:27)
[2023-10-01] MEDS: SODIUM CHLORIDE 0.9% 1,000 ML IV SCH (21:28)
[2023-10-01] MEDS: MORPHINE SULFATE 4 MG/ML SYRINGE IV PRN (21:28)
[2023-10-02] MEDS ORDERED: ACETAMINOPHEN TAB 325 MG TAB PO PRN (00:31)
[2023-10-02] MEDS: HYDROCORTISONE 10 MG TAB PO SCH ×2 (01:12→08:48)
[2023-10-02] MEDS: AMITRIPTYLINE HCL 50 MG TAB PO SCH (01:12)
[2023-10-02] MEDS: PREGABALIN 100 MG CAP PO SCH (01:12)
[2023-10-02] MEDS: APIXABAN 5 MG TAB PO SCH (01:12)
[2023-10-02] MEDS: traZODone HCL 100 MG TAB PO SCH (01:12)
[2023-10-02] MEDS: DULoxetine HCL 60 MG CAPSULE.DR PO SCH (01:15)
[2023-10-02] MEDS: PANTOPRAZOLE 40 MG TABLET PO SCH (07:08)
[2023-10-02] MEDS: LEVOTHYROXINE 100 MCG TAB PO SCH (07:08)
[2023-10-02] MEDS: VARENICLINE 1 MG TAB PO SCH (08:47)
[2023-10-02] MEDS: buPROPion XL 300 MG TAB.ER.24H PO SCH (08:47)
[2023-10-02] MEDS: MELOXICAM 7.5 MG TAB PO SCH (08:47)
[2023-10-02] MEDS: oxyCODONE-APAP 10-325MG 1 EACH TAB PO PRN (08:55)
[2023-10-02] MEDS: ERTAPENEM 1 GM in SODIUM CHLORIDE 0.9% 50 ML IVPB SCH (11:21)
--- NOTE | 2023-10-02 15:43 | P.HPIM ---
History of Present Illness H&P Date: 10/02/23 Chief Complaint: Recurrent UTI This is a 53-year-old female with past medical history significant for recurrent UTI with ESBL, MS, chronic back pain, laminectomy/decompression, fibromyalgia gastroesophageal reflux disease, COPD and multiple other medical issues presented to the ER with complaints of ongoing UTI ,"never improved since last IP admission." Recent inpatient admission in with ESBL UTI, discharged on IV ertapenem via midline for an additional 8 days. Reports over the last month she has been dealing with urinary frequency, burning, suprapubic discomfort, abdominal cramping, nausea. Denies flank pain. Outpatient attempted Cipro that was changed over to Macrobid without relief. Afebrile, WBC 16.7, lactic acid 1.7. Hemoglobin 13.6, platelets 329. BUN 18, creatinine 0.72. UA reporting positive nitrates, large leukocyte esterase, 155 urine WBCs with urine culture pending. Denies chest pain, palpitations or shortness of breath. Maintaining O2 sats in the 90s on room air. Review of Systems ROS Statement: Those systems with pertinent positive or pertinent negative responses have been documented in the HPI. ROS Other: All systems not noted in ROS Statement are negative. Past Medical History Past Medical History: Asthma, Blood Disorder, Heart Failure, COPD, Deep Vein Thrombosis (DVT), Eye Disorder, Fibromyalgia, GERD/Reflux, Hearing Disorder / Deafness, Hyperlipidemia, Memory Impairment, Musculoskeletal Disorder, Neurol ogic Disorder, Osteoarthritis (OA), Pneumonia, Renal Disease, Skin Disorder, Sleep Apnea/CPAP/BIPAP, Syncope, Thyroid Disorder Additional Past Medical History / Comment(s): Multiple sclerosis, factor 5 leiden, RUBI-no device, DVT L leg 2014, hiatal hernia, hoarseness/leukoplakia, adrenal insufficiency/chronic steroid use/pituitary tumor, migraines, DJD, chronic back pain, bursitis, optic neuritis bilaterally, glaucoma , tinnitis, rosacea, insomnia, hypersomnia. bilat CTS, peripheral neuropathy, vertigo. hx infection at back surgery site. History of Any Multi-Drug Resistant Organisms: ESBL Date of last positivie culture/infection: 07/03/23 ESBL MDRO Source:: Urine Past Surgical History: Back Surgery, Bladder Surgery, Section, Cholecystectomy, Tubal Ligation Additional Past Surgical History / Comment(s): 09/24/18 bladder stimulator, r edone 09/2020. 02/05/19 microlarygoscopy/bx, vocal cord polypectomies, cervical bx, bladder suspension, EGD with bx, colonoscopy,. Laminectomy w/ decompression (01/09/20), Drainage of seroma back (02/02/20), removal spinal hardware, I&D back wound,. PICC line. Past Anesthesia/Blood Transfusion Reactions: Motion Sickness Additional Past Anesthesia/Blood Transfusion Reaction / Comment(s): occasional bad headaches. Past Psychological History: ADD/ADHD, Anxiety, Depression Smoking Status: Current every day smoker Past Alcohol Use History: None Reported Additional Past Alcohol Use History / Comment(s): 1 ppd smoker since 1981---has cut back to 08/28 ppd Past Drug Use History: None Reported Additional Drug Use History / Comment(s): occ marijuana use- - Past Family History Brother(s) Family Medical History: Deep Vein Thrombosis (DVT) Father Family Medical History: Deep Vein Thrombosis (DVT) Additional Family Medical History / Comment(s): Patient states that her father has no cardiac history but his father had previous MT's. Mother Family Medical History: Cancer, Deep Vein Thrombosis (DVT), Pulmonary Embolus Additional Family Medical History / Comment(s): Cervical cancer. Medications and Allergies Home Medications Medication Instructions Recorded Confirmed Type DULoxetine HCL [Cymbalta] 60 mg PO BID 04/01/19 10/01/23 History traZODone HCL 100 mg PO HS 12/03/19 10/01/23 History Apixaban [Eliquis] 5 mg PO Q12H 12/17/19 10/01/23 History Hydrocortisone [Cortef] 30 mg PO DAILY 10/07/20 10/01/23 History Morphine Sulfate ER [Ms Contin] 15 mg PO Q12H 10/07/20 10/01/23 History Hydrocortisone [Cortef] 20 mg PO HS 04/26/21 10/01/23 History Acetaminophen [Tylenol] 975 mg PO Q8H PRN 05/05/22 10/01/23 History Albuterol Sulfate [Proair Hfa] 2 puff INHALATION RT-Q6H PRN 05/05/22 10/01/23 History Amitriptyline HCl [Elavil] 100 mg PO HS 05/05/22 10/01/23 History Ergocalciferol [Vitamin D2 (1250 1,250 mcg PO MO 05/05/22 10/01/23 History Mcg = 10135 Iu)] Omeprazole 20 mg PO DAILY 05/05/22 10/01/23 History buPROPion XL [Wellbutrin XL] 300 mg PO DAILY 05/05/22 10/01/23 History ALPRAZolam [Xanax] 0.5 mg PO TID PRN 05/31/23 10/01/23 History Ascorbic Acid [Vitamin C] 1,000 mg PO DAILY 05/31/23 10/01/23 History Calcium Carbonate [Calcium] 600 mg PO DAILY 05/31/23 10/01/23 History Cariprazine HCl [Vraylar] 1.5 mg PO DAILY 05/31/23 10/01/23 History Celecoxib [CeleBREX] 200 mg PO DAILY 05/31/23 10/01/23 History Ketorolac [Toradol] 10 mg PO Q6HR PRN 05/31/23 10/01/23 History Levothyroxine Sodium [Synthroid] 100 mcg PO DAILY 05/31/23 10/01/23 History Meloxicam [Mobic] 15 mg PO DAILY 05/31/23 10/01/23 History Multivitamins, Thera [Multivitamin 1 tab PO DAILY 05/31/23 10/01/23 History (formulary)] Naloxone HCl [Narcan] 4 mg NASAL ONCE PRN 05/31/23 10/01/23 History Orphenadrine Citrate [Orphenadrine 100 mg PO BID PRN 05/31/23 10/01/23 History Citrate ER] Phentermine HCl [Adipex-P] 37.5 mg PO AC-BRKFST 05/31/23 10/01/23 History Pregabalin [Lyrica] 200 mg PO TID 05/31/23 10/01/23 History Semaglutide [Ozempic] 1 mg SQ MO 05/31/23 10/01/23 History Tiotropium Br/Olodaterol HCl 2 puff INHALATION RT-DAILY 05/31/23 10/01/23 History [Stiolto Respimat Inhal [place]] oxyCODONE-APAP 10-325MG [Percocet 1 tab PO Q6H PRN 05/31/23 10/01/23 History 10-325 mg] ondansetron HCL [Zofran] 8 mg PO Q8HR PRN 07/03/23 10/01/23 History Ondansetron [Zofran] 4 mg PO DAILY 10/01/23 10/01/23 History Varenicline [Chantix Continuing 1 mg PO BID 10/01/23 10/01/23 History Pack] Allergies Allergy/AdvReac Type Severity Reaction Status Date / Time amoxicillin [From Augmentin] Allergy Diarrhea, Verified 10/01/23 22:55 hives clavulanic acid Allergy Diarrhea, Verified 10/01/23 22:55 [From Augmentin] hives doxycycline Allergy Rash/Hives Verified 10/01/23 22:55 glatiramer (copolymer 1) Allergy Rapid Verified 10/01/23 22:55 [From Copaxone] Heart Rate,hives, skin flushing sulfamethoxazole Allergy blisters Verified 10/01/23 22:55 [From Bactrim] in mouth, rash/hives trimethoprim [From Bactrim] Allergy blisters Verified 10/01/23 22:55 in mouth, rash/hives steroids AdvReac genital Uncoded 10/01/23 22:55 burning & rashes but still takes steroids. Physical Exam Vitals: Vital Signs Temp Pulse Pulse Resp BP BP Pulse Ox 10/02/23 13:27 98.4 F 79 19 119/76 94 L 10/02/23 07:15 98.4 F 95 19 103/69 94 L 10/02/23 00:29 98.4 F 93 12 110/63 92 L 10/01/23 22:11 98.9 F 112 H 18 136/69 91 L 10/01/23 21:44 98.5 F 10/01/23 21:01 96 18 122/64 96 10/01/23 18:59 98.6 F 110 H 20 121/60 95 Intake and Output 10/02/23 10/02/23 10/02/23 06:59 14:59 22:59 Other: Voiding Method Toilet # Voids 3 General: well nourished, well developed, alert, sitting up in bed, NAD. Vitals reviewed Eyes: PERRL, EOMI, conjunctiva normal HENT: normocephalic, mucus membranes moist Neck: supple, no JVD Lungs: normal respiratory effort, no wheezes or rales CV: Regular rate and rhythm, no murmur. Peripheral pulses 2+ Abdomen: soft, nondistended, no organomegaly.mild suprapubic tenderness. Skin: warm and dry. Neuro: A&Ox3, normal mood and affect Results CBC & Chem 7: 10/01/23 19:50 10/01/23 19:50 Labs: Abnormal Lab Results - Last 24 Hours (Table) 10/01/23 10/01/23 10/01/23 Range/Units 19:17 19:50 19:50 WBC 16.7 H (3.8-10.6) k/uL RDW 15.6 H (11.5-15.5) % Neutrophils # 13.3 H (1.3-7.7) k/uL Sodium 135 L (137-145) mmol/L BUN 18 H (7-17) mg/dL Glucose 103 H (74-99) mg/dL Urine Appearance Cloudy H (Clear) Urine Nitrite Positive H (Negative) Ur Leukocyte Esterase Large H (Negative) Urine WBC 155 H (0-5) /hpf Urine WBC Clumps Few H (None) /hpf Urine Bacteria Few H (None) /hpf Urine Mucus Rare H (None) /hpf Assessment and Plan Assessment: Acute UTI, History of recent UTI ESBL, failed outpatient treatment, discharged on ertapenem via midline placement Dehydration MS Lumbar DDD Plan: Continue on current medication regimen, monitoring and symptomatic treatment. IV fluid hydration, IV ertapenem ordered. Infectious disease consult in place. Urine and blood cultures in progress. PPI in place for GI prophylax. The impression and plan of care has been dictated as directed. : I performed a history and examination of this patient, discussed the same with the dictator. I agree with the dictator's note ,documented as a scribe. Any additional findings or plans will be noted.
[2023-10-02] MEDS: ONDANSETRON 4 MG TAB PO PRN (18:19)
[2023-10-02] MEDS: MAGNESIUM SULFATE-D5W PMX 1 GM in DEXTROSE/WATER 1 100ML.BAG IVPB ONE (20:33)
[2023-10-02] MEDS: ALPRAZolam 0.5 MG TAB PO PRN (21:56)
--- NOTE | 2023-10-02 22:21 | P.CONS ---
History of Present Illness - Reason for Consult Consult date: 10/02/23 ESBL Requesting physician: Tom Morgan - Chief Complaint Suprapubic pain and burning of urine x days - History of Present Illness Patient is a 53-year-old female with a past medical history significant for DVT fibromyalgia reflux asthma blood disorder history of recurrent UTI presenting to the ER for evaluation of urinary symptoms UTI and need for IV antibiotic therapy apparently the patient has been treated in the outpatient setting by the PCP with antibiotics in the form of Macrobid however the patient did have persistent symptoms with an outpatient culture positive for ESBL E. coli 4 the patient was advised to go to the hospital for admission and IV antibiotic therapy patient on presentation to the hospital was afebrile and no fever have recorded subsequently patient complaining of some chills denies any headache or URI symptoms no chest pain shortness of breath or cough, he did have some nausea but no vomiting patient complaining of mostly suprapubic pain describing it to be sharp moderate in intensity without any radiation with associated burning of urine but no hematuria or any diarrhea, patient was afebrile on presentation to hospital she was not tachycardic hypotensive or hypoxic patient did have a white count of 16.7 with a left shift creatinine was 0.72 urine has been positive with large leukocyte Estrace 155 WBC patient was g iven a dose of ertapenem admitted to hospital infectious disease was consulted for further management of antibiotic therapy Review of Systems Positive point and negatives has been mentioned in the HPI, complete review of systems was performed and all other systems are negative Past Medical History Past Medical History: Asthma, Blood Disorder, Heart Failure, COPD, Deep Vein Thrombosis (DVT), Eye Disorder, Fibromyalgia, GERD/Reflux, Hearing Disorder / Deafness, Hyperlipidemia, Memory Impairment, Musculoskeletal Disorder, Neurol ogic Disorder, Osteoarthritis (OA), Pneumonia, Renal Disease, Skin Disorder, Sleep Apnea/CPAP/BIPAP, Syncope, Thyroid Disorder Additional Past Medical History / Comment(s): Multiple sclerosis, factor 5 leiden, RUBI-no device, DVT L leg 2014, hiatal hernia, hoarseness/leukoplakia, adrenal insufficiency/chronic steroid use/pituitary tumor, migraines, DJD, chronic back pain, bursitis, optic neuritis bilaterally, glaucoma , tinnitis, rosacea, insomnia, hypersomnia. bilat CTS, peripheral neuropathy, vertigo. hx infection at back surgery site. History of Any Multi-Drug Resistant Organisms: ESBL Year Discovered:: 07/03/23 ESBL MDRO Source:: Urine Past Surgical History: Back Surgery, Bladder Surgery, Section, Cholecystectomy, Tubal Ligation Additional Past Surgical History / Comment(s): 09/24/18 bladder stimulator, redone 09/2020. 02/05/19 microlarygoscopy/bx, vocal cord polypectomies, cervical bx, bladder suspension, EGD with bx, colonoscopy,. Laminectomy w/ decompression (01/09/20), Drainage of seroma back (02/02/20), removal spinal hardware, I&D back wound,. PICC line. Past Anesthesia/Blood Transfusion Reactions: Motion Sickness Additional Past Anesthesia/Blood Transfusion Reaction / Comm: occasional bad headaches. Past Psychological History: ADD/ADHD, Anxiety, Depression Smoking Status: Current every day smoker Past Alcohol Use History: None Reported Additional Past Alcohol Use History / Comment(s): 1 ppd smoker since 1981---has cut back to 1/2 ppd Past Drug Use History: None Reported Additional Drug Use History / Comment(s): occ marijuana use- - Past Family History Brother(s) Family Medical History: Deep Vein Thrombosis (DVT) Father Family Medical History: Deep Vein Thrombosis (DVT) Additional Family Medical History / Comment(s): Patient states that her father has no cardiac history but his father had previous LA's. Mother Family Medical History: Cancer, Deep Vein Thrombosis (DVT), Pulmonary Embolus Additional Family Medical History / Comment(s): Cervical cancer. Medications and Allergies Home Medications Medication Instructions Recorded Confirmed Type DULoxetine HCL [Cymbalta] 60 mg PO BID 04/01/19 10/01/23 History traZODone HCL 100 mg PO HS 12/03/19 10/01/23 History Apixaban [Eliquis] 5 mg PO Q12H 12/17/19 10/01/23 History Hydrocortisone [Cortef] 30 mg PO DAILY 10/07/20 10/01/23 History Morphine Sulfate ER [Ms Contin] 15 mg PO Q12H 10/07/20 10/01/23 History Hydrocortisone [Cortef] 20 mg PO HS 04/26/21 10/01/23 History Acetaminophen [Tylenol] 975 mg PO Q8H PRN 05/05/22 10/01/23 History Albuterol Sulfate [Proair Hfa] 2 puff INHALATION RT-Q6H PRN 05/05/22 10/01/23 History Amitriptyline HCl [Elavil] 100 mg PO HS 05/05/22 10/01/23 History Ergocalciferol [Vitamin D2 (1250 1,250 mcg PO MO 05/05/22 10/01/23 History Mcg = 57216 Iu)] Omeprazole 20 mg PO DAILY 05/05/22 10/01/23 History buPROPion XL [Wellbutrin XL] 300 mg PO DAILY 05/05/22 10/01/23 History ALPRAZolam [Xanax] 0.5 mg PO TID PRN 05/31/23 10/01/23 History Ascorbic Acid [Vitamin C] 1,000 mg PO DAILY 05/31/23 10/01/23 History Calcium Carbonate [Calcium] 600 mg PO DAILY 05/31/23 10/01/23 History Cariprazine HCl [Vraylar] 1.5 mg PO DAILY 05/31/23 10/01/23 History Levothyroxine Sodium [Synthroid] 100 mcg PO DAILY 05/31/23 10/01/23 History Multivitamins, Thera [Multivitamin 1 tab PO DAILY 05/31/23 10/01/23 History (formulary)] Naloxone HCl [Narcan] 4 mg NASAL ONCE PRN 05/31/23 10/01/23 History Orphenadrine Citrate [Orphenadrine 100 mg PO BID PRN 05/31/23 10/01/23 History Citrate ER] Phentermine HCl [Adipex-P] 37.5 mg PO AC-BRKFST 05/31/23 10/01/23 History Pregabalin [Lyrica] 200 mg PO TID 05/31/23 10/01/23 History Semaglutide [Ozempic] 1 mg SQ MO 05/31/23 10/01/23 History Tiotropium Br/Olodaterol HCl 2 puff INHALATION RT-DAILY 05/31/23 10/01/23 History [Stiolto Respimat Inhal [place]] oxyCODONE-APAP 10-325MG [Percocet 1 tab PO Q6H PRN 05/31/23 10/01/23 History 10-325 mg] ondansetron HCL [Zofran] 8 mg PO Q8HR PRN 07/03/23 10/01/23 History Ondansetron [Zofran] 4 mg PO DAILY 10/01/23 10/01/23 History Varenicline [Chantix Continuing 1 mg PO BID 10/01/23 10/01/23 History Pack] Ertapenem [INVanz] 1 gm IVPB DAILY each 10/05/23 Rx Phenazopyridine [Pyridium] 100 mg PO TID 2 Days #6 tab 10/05/23 Rx Allergies Allergy/AdvReac Type Severity Reaction Status Date / Time amoxicillin [From Augmentin] Allergy Diarrhea, Verified 10/01/23 22:55 hives clavulanic acid Allergy Diarrhea, Verified 10/01/23 22:55 [From Augmentin] hives doxycycline Allergy Rash/Hives Verified 10/01/23 22:55 glatiramer (copolymer 1) Allergy Rapid Verified 10/01/23 22:55 [From Copaxone] Heart Rate,hives, skin flushing sulfamethoxazole Allergy blisters Verified 10/01/23 22:55 [From Bactrim] in mouth, rash/hives trimethoprim [From Bactrim] Allergy blisters Verified 10/01/23 22:55 in mouth, rash/hives steroids AdvReac genital Uncoded 10/01/23 22:55 burning & rashes but still takes steroids. Physical Exam Vitals: Vital Signs Temp Pulse Pulse Resp BP BP Pulse Ox 10/02/23 07:15 98.4 F 95 19 103/69 94 L 10/02/23 00:29 98.4 F 93 12 110/63 92 L 10/01/23 22:11 98.9 F 112 H 18 136/69 91 L 10/01/23 21:44 98.5 F 10/01/23 21:01 96 18 122/64 96 10/01/23 18:59 98.6 F 110 H 20 121/60 95 Intake and Output 10/01/23 10/02/23 10/02/23 22:59 06:59 14:59 Other: Voiding Method Toilet Toilet # Voids 3 Weight 108.862 kg GENERAL DESCRIPTION: Middle-aged female lying in bed, no distress. No tachypnea or accessory muscle of respiration use. HEENT: Shows Pallor , no scleral icterus. Oral mucous membrane is dry. No pharyngeal erythema or thrush NECK: Trachea central, no thyromegaly. LUNGS: Unlabored breathing. Clear to auscultation anteriorly. No wheeze or crackle. HEART: S1, S2, regular rate and rhythm. No loud murmur ABDOMEN: Soft, no tenderness , guarding or rigidity, no organomegaly EXTREMITIES: No edema of feet. SKIN: No rash, no masses palpable. NEUROLOGICAL: The patient is awake, alert, oriented x3, mood and affect normal. Results CBC & Chem 7: 10/05/23 09:47 10/03/23 04:59 Labs: Abnormal Lab Results - Last 24 Hours (Table) 10/01/23 10/01/23 10/01/23 Range/Units 19:17 19:50 19:50 WBC 16.7 H (3.8-10.6) k/uL RDW 15.6 H (11.5-15.5) % Neutrophils # 13.3 H (1.3-7.7) k/uL Sodium 135 L (137-145) mmol/L BUN 18 H (7-17) mg/dL Glucose 103 H (74-99) mg/dL Urine Appearance Cloudy H (Clear) Urine Nitrite Positive H (Negative) Ur Leukocyte Esterase Large H (Negative) Urine WBC 155 H (0-5) /hpf Urine WBC Clumps Few H (None) /hpf Urine Bacteria Few H (None) /hpf Urine Mucus Rare H (None) /hpf Assessment and Plan (1) Allergy to multiple antibiotics Status: Acute Code(s): Z88.1 - ALLERGY STATUS TO OTHER ANTIBIOTIC AGENTS SNOMED Code(s): 280107301 (2) History of ESBL E. coli infection Status: Acute Code(s): Z86.19 - PERSONAL HISTORY OF OTHER INFECTIOUS AND PARASITIC DISEASES SNOMED Code(s): 089306533 (3) UTI (urinary tract infection) Status: Acute Code(s): N39.0 - URINARY TRACT INFECTION, SITE NOT SPECIFIED SNOMED Code(s): 43734785 Plan: 1patient presented to hospital with burning of urine and suprapubic pain nausea with outpatient culture positive for ESBL E. coli failing outpatient oral Macrobid therapy likely suspicious for symptomatic urinary tract infection and likely from ESBL pathogen 2-patient with multiple antibiotic ALLERGIES that would limit the number of antibiotic safe to use 3-we will repeat ultrasound of the kidney and bladder to make sure no evidence of any structural abnormality responsible for these recurrent UTI 4-start the patient on Invanz 1 g daily while waiting for the culture to finalize We will follow on clinical condition and cultures to further adjust medication if needed Thank you for this consultation we will follow the patient along with you Dictation was produced using [employer] dictation software. please excuse any grammatical, word or spelling errors. Time with Patient: Greater than 30
[2023-10-03 08:50] LABS: Basophils # (A) 0.05 X 10*3/uL (0.00-0.10); Basophils % (A) 0.4 %; Eosinophils # (A) 0.23 X 10*3/uL (0.04-0.35); Eosinophils % (A) 1.9 %; HCT 41.5 % (37.2-46.3); HGB 12.5 g/dL (12.0-15.0); Lymphocytes # (A) 2.22 X 10*3/uL (0.90-5.00); Lymphocytes % (A) 18.3 %; MCH 25.3 pg (27.0-32.0); MCHC 30.1 g/dL (32.0-37.0); MCV 83.8 FL (80.0-97.0); Monocytes # (A) 0.65 X 10*3/uL (0.20-1.00); Monocytes % (A) 5.3 %; NRBC Per 100 WBC 0 X 10*3/uL (0.00-0.01); Neutrophils % (A) 73.3 %; Platelet Count 278 X 10*3/uL (140-440); RBC 4.95 X 10*6/uL (4.10-5.20); RDW 16.4 % (11.5-14.5); WBC 12.15 X 10*3/uL (4.50-10.00)
[2023-10-03 09:01] LABS: BUN/Creat Ratio 20.71 Ratio (12.00-20.00); Blood Urea Nitrogen 14.5 mg/dL (9.0-27.0); Calcium 9.4 mg/dL (8.7-10.3); Carbon Dioxide 31.6 mmol/L (21.6-31.8); Chloride 99 mmol/L (96-109); Glucose 107 mg/dL (70-110); Potassium 4.5 mmol/L (3.5-5.5); Sodium 141 mmol/L (135-145)
--- NOTE | 2023-10-03 09:44 | US ---
EXAMINATION TYPE: US kidneys/renal and bladder DATE OF EXAM: 10/03/2023 COMPARISON: NONE CLINICAL INDICATION: Female, 53 years old with history of uti and bacteremia; UTI and bacteremia EXAM MEASUREMENTS: Right Kidney: 11.0x4.5x5.7 cm Left Kidney: 11.1x5.9x5.9 cm Right Kidney: No hydronephrosis or masses seen Left Kidney: No hydronephrosis or masses seen Bladder: wnl Bilateral Jets seen: obscured by overlying bowel gas There is no evidence for hydronephrosis at this point in time. No nephrolithiasis is seen. No francisco s are identified. exam limited by body habitus and bowel IMPRESSION: 1. No evidence for obstructive uropathy. 2. Decompressed urinary bladder which is poorly evaluated due to bowel gas.
--- NOTE | 2023-10-03 12:38 | P.PN ---
Subjective This is a 53-year-old female with past medical history significant for recurrent UTI with ESBL, MS, chronic back pain, laminectomy/decompression, fibromyalgia gastroesophageal reflux disease, COPD and multiple other medical issues presented to the ER with complaints of ongoing UTI ,"never improved since last IP admission." Recent inpatient admission in with ESBL UTI, discharged on IV ertapenem via midline for an additional 8 days. Reports over the last month she has been dealing with urinary frequency, burning, suprapubic discomfort, abdominal cramping, nausea. Denies flank pain. Outpatient attempted Cipro that was changed over to Macrobid without relief. Afebrile, WBC 16.7, lactic acid 1.7. Hemoglobin 13.6, platelets 329. BUN 18, creatinine 0.72. UA reporting positive nitrates, large leukocyte esterase, 155 urine WBCs with urine culture pending. Denies chest pain, palpitations or shortness of breath. Maintaining O2 sats in the 90s on room air. 10/03/2023 Patient awake and alert She presents with lower abdominal pain which she hasn't for about one week, X improving though, it was 8/10 and currently 5-60/10 in severity with soft abdomen and no rebound tenderness. She still complains from dysuria and increased frequency about 7-8 times yesterday Urine culture is growing gram-negative bacilli pending final results are currently covered with Invanz per ID team recommendation given her long history of UTI. 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 HEENT: No recent visual problems or hearing problems. Denied any sore throat. CARDIOVASCULAR: No orthopnea, PND, no palpitations, no syncope. PULMONARY: No shortness of breath, no cough, no hemoptysis. GASTROINTESTINAL: No diarrhea, no nausea, no vomiting, no abdominal pain. Normoactive bowel sounds. NEUROLOGICAL: No headaches, no weakness, no numbness. HEMATOLOGICAL: Denies any bleeding or petechiae. MUSCULOSKELETAL/RHEUMATOLOGICAL: Denies any joint pain, swelling, or any muscle pain. ENDOCRINE: Denies any polyuria or polydipsia. Active Medications Generic Name Dose Route Start Last Admin Trade Name Freq PRN Reason Stop Dose Admin Acetaminophen 975 mg 10/02/23 00:31 Acetaminophen Tab 325 Mg Tab PO Q8H PRN Pain Alprazolam 0.5 mg 10/02/23 01:43 10/02/23 21:56 Alprazolam 0.5 Mg Tab PO 0.5 mg TID PRN Administration Anxiety Amitriptyline HCl 100 mg 10/02/23 00:45 10/02/23 20:34 Amitriptyline Hcl 50 Mg Tab PO 100 mg HS ULYSSES Administration Apixaban 5 mg 10/02/23 00:45 10/03/23 08:47 Apixaban 5 Mg Tab PO 5 mg BID ULYSSES Administration Protocol Bupropion HCl 300 mg 10/02/23 09:00 10/03/23 08:47 Bupropion Xl 300 Mg Tab.Er.24h PO 300 mg DAILY ULYSSES Administration Duloxetine HCl 60 mg 10/02/23 00:45 10/03/23 08:45 Duloxetine Hcl 60 Mg Capsule.Dr PO 60 mg BID ULYSSES Administration Hydrocortisone 20 mg 10/02/23 00:45 10/02/23 20:33 Hydrocortisone 10 Mg Tab PO 20 mg HS ULYSSES Administration Hydrocortisone 30 mg 10/02/23 09:00 10/03/23 08:47 Hydrocortisone 10 Mg Tab PO 30 mg DAILY ULYSSES Administration Sodium Chloride 1,000 mls @ 20 mls/hr 10/01/23 21:15 10/02/23 22:24 Saline 0.9% IV Not Given .Q24H ULYSSES Ertapenem 1 gm/ Sodium 50 mls @ 100 mls/hr 10/02/23 11:00 10/03/23 09:03 Chloride IVPB 100 mls/hr DAILY ULYSSES Administration Protocol Levothyroxine Sodium 100 mcg 10/02/23 06:30 10/03/23 07:03 Levothyroxine 100 Mcg Tab PO 100 mcg DAILY@0630 ULYSSES Administration Meloxicam 7.5 mg 10/02/23 09:00 10/03/23 08:56 Meloxicam 7.5 Mg Tab PO 7.5 mg DAILY ULYSSES Administration Morphine Sulfate 4 mg 10/01/23 21:07 10/03/23 08:45 Morphine Sulfate 4 Mg/Ml Syringe IV 4 mg Q4HR PRN Administration Severe Pain (Scale 7 to 10) Naloxone HCl 0.2 mg 10/01/23 21:07 Naloxone 0.4 Mg/Ml 1 Ml Vial IV Q2M PRN Opioid Reversal Ondansetron HCl 8 mg 10/02/23 00:31 10/02/23 18:19 Ondansetron 4 Mg Tab PO 8 mg Q8HR PRN Administration Nausea Oxycodone/Acetaminophen 1 each 10/02/23 01:43 10/03/23 07:04 Oxycodone-Apap 10-325mg 1 Each Tab PO 1 each Q6H PRN Administration Pain Pantoprazole Sodium 40 mg 10/02/23 07:30 10/03/23 07:04 Pantoprazole 40 Mg Tablet PO 40 mg [id number] ULYSSES Administration Pregabalin 200 mg 10/02/23 00:45 10/03/23 08:44 Pregabalin 100 Mg Cap PO 200 mg TID ULYSSES Administration Trazodone HCl 100 mg 10/02/23 00:45 10/02/23 20:34 Trazodone Hcl 100 Mg Tab PO 100 mg HS ULYSSES Administration Varenicline 1 mg 10/02/23 09:00 10/03/23 08:47 Varenicline 1 Mg Tab PO 1 mg BID ULYSSES Administration Objective - Vital Signs Vital signs: Vital Signs Temp 97.4 F L 10/03/23 07:33 Pulse 82 10/03/23 07:33 Resp 20 10/03/23 07:33 BP 121/79 10/03/23 07:33 Pulse Ox 94 L 10/03/23 07:33 FiO2 Intake & Output 10/02/23 10/03/23 10/03/23 18:59 06:59 18:59 Intake Total 300 Balance 300 Intake: Oral 300 Other: Voiding Method Toilet Toilet Toilet # Voids 3 2 - Labs CBC & Chem 7: 10/03/23 04:59 10/03/23 04:59 Labs: Abnormal Lab Results - Last 24 Hours (Table) 10/03/23 10/03/23 Range/Units 04:59 04:59 WBC 12.15 H (4.50-10.00) X 10*3/uL MCH 25.3 L (27.0-32.0) pg MCHC 30.1 L (32.0-37.0) g/dL RDW 16.4 H (11.5-14.5) % Immature Gran # 0.10 H (0.00-0.04) X 10*3/uL Neutrophils # 8.90 H (1.80-7.70) X 10*3/uL BUN/Creatinine Ratio 20.71 H (12.00-20.00) Ratio Microbiology - Last 24 Hours (Table) 10/01/23 19:55 Blood Culture - Preliminary Blood 10/01/23 20:10 Blood Culture - Preliminary Blood 10/01/23 19:17 Urine Culture - Preliminary Urine,Clean Catch Gram Neg Bacilli Assessment and Plan Assessment: Acute urinary tract infection failed outpatient treatment Abdominal pain and Leukocytosis secondary to above 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 Continue same treatment. Continue with symptomatic treatment. Resume home medication. Monitor labs and vitals. DVT and GI prophylaxis. Further recommendations as per clinical course of the patient DVT prophylaxis: eliquis GI Prophylaxis: Pepcid Prognosis is guarded
--- NOTE | 2023-10-04 14:30 | P.PN ---
Subjective Progress Note Date: 10/03/23 Principal diagnosis: Reason for follow-up is UTI possible ESBL E. coli Patient is a 53-year-old female with a past medical history significant for DVT fibromyalgia reflux asthma blood disorder history of recurrent UTI presenting to the ER for evaluation of urinary symptoms UTI and need for IV antibiotic therapy apparently patient did have an outpatient urine culture suggestive of ESBL E. coli for the patient was sent to the ER. On today's evaluation that is 10/03/2023, the patient is afebrile, patient is on room air, the patient denies chest pain shortness of breath or cough, patient denies nausea no vomiting still complaining of some suprapubic discomfort and urinary symptoms and no diarrhea. Patient white count is down to 12.15, creatinine 0.7 blood cultures pending urine showing gram-negative bacilli Objective - Vital Signs Vital signs: Vital Signs Temp 97.4 F L 10/03/23 07:33 Pulse 82 10/03/23 07:33 Resp 20 10/03/23 07:33 BP 121/79 10/03/23 07:33 Pulse Ox 94 L 10/03/23 07:33 FiO2 Intake & Output 10/02/23 10/03/23 10/03/23 18:59 06:59 18:59 Other: Voiding Method Toilet Toilet Toilet # Voids 3 2 - Exam GENERAL DESCRIPTION: Middle-age female lying in bed in no distress RESPIRATORY SYSTEM: Unlabored breathing , decreased breath sounds at bases HEART: S1 S2 regular rate and rhythm , ABDOMEN: Soft , no tenderness EXTREMITIES: No edema feet - Labs CBC & Chem 7: 10/03/23 04:59 10/03/23 04:59 Labs: Abnormal Lab Results - Last 24 Hours (Table) 10/03/23 10/03/23 Range/Units 04:59 04:59 WBC 12.15 H (4.50-10.00) X 10*3/uL MCH 25.3 L (27.0-32.0) pg MCHC 30.1 L (32.0-37.0) g/dL RDW 16.4 H (11.5-14.5) % Immature Gran # 0.10 H (0.00-0.04) X 10*3/uL Neutrophils # 8.90 H (1.80-7.70) X 10*3/uL BUN/Creatinine Ratio 20.71 H (12.00-20.00) Ratio Microbiology - Last 24 Hours (Table) 10/01/23 19:55 Blood Culture - Preliminary Blood 10/01/23 20:10 Blood Culture - Preliminary Blood 10/01/23 19:17 Urine Culture - Preliminary Urine,Clean Catch Gram Neg Bacilli Assessment and Plan (1) Allergy to multiple antibiotics Current Visit: Yes Status: Acute Code(s): Z88.1 - ALLERGY STATUS TO OTHER ANTIBIOTIC AGENTS SNOMED Code(s): 729711232 (2) History of ESBL E. coli infection Current Visit: Yes Status: Acute Code(s): Z86.19 - PERSONAL HISTORY OF OTHER INFECTIOUS AND PARASITIC DISEASES SNOMED Code(s): 070454989 (3) UTI (urinary tract infection) Current Visit: No Status: Acute Code(s): N39.0 - URINARY TRACT INFECTION, SITE NOT SPECIFIED SNOMED Code(s): 74748173 Plan: 1patient presented to hospital with burning of urine and suprapubic pain nausea with outpatient culture positive for ESBL E. coli failing outpatient oral Macrobid therapy likely suspicious for symptomatic urinary tract infection and likely from ESBL pathogen 2-patient with multiple antibiotic ALLERGIES that would limit the number of antibiotic safe to use 3-with ultrasound of the kidney and bladder did not show any evidence of structural abnormality 4-patient to continue with Invanz 1 g daily while waiting for the culture to finalize Dictation was produced using [employer] dictation software. please excuse any grammatical, word or spelling errors. Time with Patient: Less than 30
--- NOTE | 2023-10-04 14:32 | P.PN ---
Subjective Progress Note Date: 10/04/23 Principal diagnosis: Reason for follow-up is UTI possible ESBL E. coli Patient is a 53-year-old female with a past medical history significant for DVT fibromyalgia reflux asthma blood disorder history of recurrent UTI presenting to the ER for evaluation of urinary symptoms UTI and need for IV antibiotic therapy apparently patient did have an outpatient urine culture suggestive of ESBL E. coli for the patient was sent to the ER. On today's evaluation that is 10/04/2023, the patient remains to be afebrile, patient is currently breathing comfortably on room air, the patient denies chest pain and no significant cough, patient denies nausea no vomiting mention suprapubic pain has decreased in intensity and no worsening urine symptoms no diarrhea No lab draw today urine is growing ESBL E. coli blood cultures so far negative Objective - Vital Signs Vital signs: Vital Signs Temp 98.1 F 10/04/23 07:23 Pulse 90 10/04/23 07:23 Resp 18 10/04/23 07:23 BP 115/77 10/04/23 07:23 Pulse Ox 94 L 10/04/23 07:23 FiO2 Intake & Output 10/03/23 10/04/23 10/04/23 18:59 06:59 18:59 Intake Total 300 Balance 300 Intake: Oral 300 Other: Voiding Method Toilet Toilet Toilet # Voids 3 2 1 - Exam GENERAL DESCRIPTION: Middle-age female lying in bed in no distress RESPIRATORY SYSTEM: Unlabored breathing , decreased breath sounds at bases HEART: S1 S2 regular rate and rhythm , ABDOMEN: Soft , no tenderness EXTREMITIES: No edema feet - Labs CBC & Chem 7: 10/03/23 04:59 10/03/23 04:59 Labs: Microbiology - Last 24 Hours (Table) 10/01/23 19:55 Blood Culture - Preliminary Blood 10/01/23 20:10 Blood Culture - Preliminary Blood 10/01/23 19:17 Urine Culture - Final Urine,Clean Catch Escherichia coli Assessment and Plan (1) UTI due to extended-spectrum beta lactamase (ESBL) producing Escherichia coli Current Visit: Yes Status: Acute Code(s): N39.0 - URINARY TRACT INFECTION, SITE NOT SPECIFIED; B96.29 - OTH ESCHERICHIA COLI THE CAUSE OF DISEASES CLASSD ELSWHR; Z16.12 - EXTENDED SPECTRUM BETA LACTAMASE (ESBL) RESISTANCE SNOMED Code(s): 016922981 (2) Leukocytosis Current Visit: Yes Status: Acute Code(s): D72.829 - ELEVATED WHITE BLOOD CELL COUNT, UNSPECIFIED SNOMED Code(s): 232425500 (3) Allergy to multiple antibiotics Current Visit: Yes Status: Acute Code(s): Z88.1 - ALLERGY STATUS TO OTHER ANTIBIOTIC AGENTS SNOMED Code(s): 144376949 Plan: 1patient presented to hospital with burning of urine and suprapubic pain nausea with outpatient culture positive for ESBL E. coli failing outpatient oral Macrobid therapy likely suspicious for symptomatic urinary tract infection and likely from ESBL pathogen 2-patient with multiple antibiotic ALLERGIES that would limit the number of antibiotic safe to use 3- ultrasound of the kidney and bladder did not show any evidence of structural abnormality 4-patient urine has been finalized with ESBL E. coli, patient to continue with Invanz 1 g daily will order midline for outpatient IV antibiotic therapy Dictation was produced using [employer] dictation software. please excuse any grammatical, word or spelling errors. Time with Patient: Less than 30
[2023-10-04 15:23] LABS: HCT 41.9 % (34.0-46.0); HGB 13.1 gm/dL (11.4-16.0); Hypochromasia Slight; MCH 25.7 pg (25.0-35.0); MCHC 31.4 g/dL (31.0-37.0); MCV 81.9 fL (80.0-100.0); Mean Platelet Volume 8.1; Platelet Count 253 k/uL (150-450); RBC 5.12 m/uL (3.80-5.40); RDW 15.4 % (11.5-15.5); WBC 16.6 k/uL (3.8-10.6)
--- NOTE | 2023-10-04 21:15 | P.PN ---
Subjective This is a 53-year-old female with past medical history significant for recurrent UTI with ESBL, MS, chronic back pain, laminectomy/decompression, fibromyalgia gastroesophageal reflux disease, COPD and multiple other medical issues presented to the ER with complaints of ongoing UTI ,"never improved since last IP admission." Recent inpatient admission in with ESBL UTI, discharged on IV ertapenem via midline for an additional 8 days. Reports over the last month she has been dealing with urinary frequency, burning, suprapubic discomfort, abdominal cramping, nausea. Denies flank pain. Outpatient attempted Cipro that was changed over to Macrobid without relief. Afebrile, WBC 16.7, lactic acid 1.7. Hemoglobin 13.6, platelets 329. BUN 18, creatinine 0.72. UA reporting positive nitrates, large leukocyte esterase, 155 urine WBCs with urine culture pending. Denies chest pain, palpitations or shortness of breath. Maintaining O2 sats in the 90s on room air. 10/03/2023 Patient awake and alert She presents with lower abdominal pain which she hasn't for about one week, X improving though, it was 8/10 and currently 5-60/10 in severity with soft abdomen and no rebound tenderness. She still complains from dysuria and increased frequency about 7-8 times yesterday Urine culture is growing gram-negative bacilli pending final results are currently covered with Invanz per ID team recommendation given her long history of UTI. 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 coli Remains on Invanz Midline is ordered today Plan for outpatient IV antibiotic Possible discharge in 24-48 hours Objective - Vital Signs Vital signs: Vital Signs Temp 98.1 F 10/04/23 07:23 Pulse 90 10/04/23 07:23 Resp 18 10/04/23 07:23 BP 115/77 10/04/23 07:23 Pulse Ox 94 L 10/04/23 07:23 FiO2 Intake & Output 10/03/23 10/04/23 10/04/23 18:59 06:59 18:59 Intake Total 300 Balance 300 Intake: Oral 300 Other: Voiding Method Toilet Toilet Toilet # Voids 3 2 1 - Exam GENERAL: The patient is alert and oriented x3, not in any acute distress. Well developed, well nourished. HEENT: Pupils are round and equally reacting to light. EOMI. No scleral icterus. No conjunctival pallor. Normocephalic, atraumatic. No pharyngeal erythema. No thyromegaly. CARDIOVASCULAR: S1 and S2 present. No murmurs, rubs, or gallops. PULMONARY: Chest is clear to auscultation, no wheezing , no crackles. -ABDOMEN: Soft, mild suprapubic tenderness on tenderness, nondistended, normoactive bowel sounds. No palpable organomegaly. MUSCULOSKELETAL: No joint swelling or deformity. EXTREMITIES: No cyanosis, clubbing, or pedal edema. NEUROLOGICAL: Gross neurological examination did not reveal any focal deficits. SKIN: No rashes. no petechiae. - Labs CBC & Chem 7: 10/04/23 15:08 10/03/23 04:59 Labs: Microbiology - Last 24 Hours (Table) 10/01/23 19:55 Blood Culture - Preliminary Blood 10/01/23 20:10 Blood Culture - Preliminary Blood 10/01/23 19:17 Urine Culture - Final Urine,Clean Catch Escherichia coli Assessment and Plan Assessment: Acute urinary tract infection failed outpatient treatment. Secondary to ESBL E. 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 Continue same treatment. Continue with symptomatic treatment. Resume home medication. Monitor labs and vitals. DVT and GI prophylaxis. Further recommendations as per clinical course of the patient DVT prophylaxis: eliquis GI Prophylaxis: Pepcid Prognosis is guarded Possible discharge in 24-48 hours
[2023-10-05 07:57] VITALS: RESP 17
[2023-10-05 10:13] LABS: HCT 40.1 % (34.0-46.0); HGB 12.7 gm/dL (11.4-16.0); Hypochromasia Slight; MCH 25.7 pg (25.0-35.0); MCHC 31.7 g/dL (31.0-37.0); MCV 81.3 fL (80.0-100.0); Platelet Count 237 k/uL (150-450); RBC 4.94 m/uL (3.80-5.40); RDW 15.3 % (11.5-15.5); WBC 14.3 k/uL (3.8-10.6)
[2023-10-05] MEDS: PHENAZOPYRIDINE 100 MG TAB PO SCH (11:26)
--- NOTE | 2023-10-05 13:08 | P.PN ---
Subjective Progress Note Date: 10/05/23 Principal diagnosis: Reason for follow-up is UTI possible ESBL E. coli Patient is a 53-year-old female with a past medical history significant for DVT fibromyalgia reflux asthma blood disorder history of recurrent UTI presenting to the ER for evaluation of urinary symptoms UTI and need for IV antibiotic therapy apparently patient did have an outpatient urine culture suggestive of ESBL E. coli for the patient was sent to the ER. On today's evaluation that is 10/05/2023, the patient is afebrile, patient is on room air, the patient denies chest pain shortness of breath or cough, patient denies nausea no vomiting still complaining of some suprapubic discomfort but denies any worsening urinary symptoms. Patient white count is down to 14.3 from yesterday of 16.6, no BMP was done today blood culture has been negative Objective - Vital Signs Vital signs: Vital Signs Temp 98.4 F 10/05/23 07:09 Pulse 84 10/05/23 07:09 Resp 17 10/05/23 07:09 BP 92/64 10/05/23 07:09 Pulse Ox 92 L 10/05/23 07:09 FiO2 Intake & Output 10/04/23 10/05/23 10/05/23 18:59 06:59 18:59 Other: Voiding Method Toilet Toilet Toilet # Voids 1 2 - Exam GENERAL DESCRIPTION: Middle-age female lying in bed in no distress RESPIRATORY SYSTEM: Unlabored breathing , decreased breath sounds at bases HEART: S1 S2 regular rate and rhythm , ABDOMEN: Soft , no tenderness EXTREMITIES: No edema feet - Labs CBC & Chem 7: 10/05/23 09:47 10/03/23 04:59 Labs: Abnormal Lab Results - Last 24 Hours (Table) 10/04/23 10/05/23 Range/Units 15:08 09:47 WBC 16.6 H 14.3 H (3.8-10.6) k/uL Microbiology - Last 24 Hours (Table) 10/01/23 19:55 Blood Culture - Preliminary Blood 10/01/23 20:10 Blood Culture - Preliminary Blood Assessment and Plan (1) UTI due to extended-spectrum beta lactamase (ESBL) producing Escherichia coli Current Visit: Yes Status: Acute Code(s): N39.0 - URINARY TRACT INFECTION, SITE NOT SPECIFIED; B96.29 - OTH ESCHERICHIA COLI THE CAUSE OF DISEASES CLASSD ELSWHR; Z16.12 - EXTENDED SPECTRUM BETA LACTAMASE (ESBL) RESISTANCE SNOMED Code(s): 587876439 (2) Leukocytosis Current Visit: Yes Status: Acute Code(s): D72.829 - ELEVATED WHITE BLOOD CELL COUNT, UNSPECIFIED SNOMED Code(s): 164129048 (3) Allergy to multiple antibiotics Current Visit: Yes Status: Acute Code(s): Z88.1 - ALLERGY STATUS TO OTHER ANTIBIOTIC AGENTS SNOMED Code(s): 896821424 Plan: 1patient presented to hospital with burning of urine and suprapubic pain nausea with outpatient culture positive for ESBL E. coli failing outpatient oral Macrobid therapy likely suspicious for symptomatic urinary tract infection and likely from ESBL pathogen 2-patient with multiple antibiotic ALLERGIES that would limit the number of a ntibiotic safe to use 3- ultrasound of the kidney and bladder did not show any evidence of structural abnormality 4-patient urine has been finalized with ESBL E. coli, patient white count is trending down blood culture were negative patient did get a midline plan is to continue with another 10 days of Invanz 1 g daily to finish a 10-day course of therapy Dictation was produced using [employer] dictation software. please excuse any grammatical, word or spelling errors. Time with Patient: Less than 30
[2023-10-05 15:07] VITALS: BP 109/71; PULSE 89; TEMP 99.1
[2023-10-05] MEDS ORDERED: HYDROCORTISONE 20 MG TAB PO SCH (21:00)
--- NOTE | 2023-10-09 02:46 | P.DS ---
Providers Date of admission: 10/01/23 21:11 Attending physician: Richy Palomino MD Consults: 10/01/23 21:07 Consult Physician Routine Consulting Provider: Devante Reich Consult Reason/Comments: esbl Do you want consulting provider notified?: Yes Primary care physician: Richy Palomino MD Hospital Course: diagnoses: Acute urinary tract infection failed outpatient treatment. Secondary to ESBL E. 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 COPD, no acute process or extravasation Hyperlipidemia Memory problems History of osteoarthritis History of sleep apnea Hyperthyroidism History of multiple sclerosis hospital course: This is a 53-year-old female with past medical history significant for recurrent UTI with ESBL, MS, chronic back pain, laminectomy/decompression, fibromyalgia gastroesophageal reflux disease, COPD and multiple other medical issues presented to the ER with complaints of ongoing UTI ,"never improved since last IP admission." Recent inpatient admission in with ESBL UTI, discharged on IV ertapenem via midline for an additional 8 days. Reports over the last month she has been dealing with urinary frequency, burning, suprapubic discomfort, abdominal cramping, nausea. Denies flank pain. Outpatient attempted Cipro that was changed over to Macrobid without relief. pt was admited with acute UTI, UC was positive for ESBL E. coli. ID team was following closely , pt is treated with IV antibiotic and would continue to finish therapy with short course of iv antibiotic upon discharge, picc line was placed for Invanze for 10 days course and discharge antibiotic was set by bilingual social worker on the case and pt informed and she verbalized understanding and acceptance to follow this treatment plan Problems and management plan were discussed with the patient and he verbalized understanding and acceptance Patient was found stable and can be discharged home in guarded prognosis however he needs follow-up as an outpatient. Patient was instructed to follow up with PCP Dr. mora within one week and patient agrees Patient was instructed to follow up with Dr. reich in one week after discharge and pt agrees pt is also on blood thinner for dvt and pt treatment plan is discussed with the pt and she has all what she needs Physical exam Gen: patient is a AAOx3, no distress CVS: S1-S2, RRR, no murmur Lungs: B/L CTA, no wheezing Abdomen: soft, no distention, no tenderness, positive bowel sounds Extremity: no leg edema or induration Time spent more than 35 minutes Patient Condition at Discharge: Fair Plan - Discharge Summary Discharge Rx Participant: Yes New Discharge Prescriptions: New Ertapenem [INVanz] 1 gm IVPB DAILY each Phenazopyridine [Pyridium] 100 mg PO TID 2 Days #6 tab Continue DULoxetine HCL [Cymbalta] 60 mg PO BID traZODone HCL 100 mg PO HS Apixaban [Eliquis] 5 mg PO Q12H Morphine Sulfate ER [Ms Contin] 15 mg PO Q12H Hydrocortisone [Cortef] 30 mg PO DAILY Hydrocortisone [Cortef] 20 mg PO HS buPROPion XL [Wellbutrin XL] 300 mg PO DAILY Amitriptyline HCl [Elavil] 100 mg PO HS Albuterol Sulfate [Proair Hfa] 2 puff INHALATION RT-Q6H PRN PRN Reason: Shortness Of Breath Cariprazine HCl [Vraylar] 1.5 mg PO DAILY Levothyroxine Sodium [Synthroid] 100 mcg PO DAILY oxyCODONE-APAP 10-325MG [Percocet 10-325 mg] 1 tab PO Q6H PRN PRN Reason: Pain Pregabalin [Lyrica] 200 mg PO TID Semaglutide [Ozempic] 1 mg SQ MO Tiotropium Br/Olodaterol HCl [Stiolto Respimat Inhal [place]] 2 puff INHALATION RT-DAILY Ascorbic Acid [Vitamin C] 1,000 mg PO DAILY Calcium Carbonate [Calcium] 600 mg PO DAILY Ondansetron [Zofran] 4 mg PO DAILY Omeprazole 20 mg PO DAILY Ergocalciferol [Vitamin D2 (1250 Mcg = 59103 Iu)] 1,250 mcg PO MO Acetaminophen [Tylenol] 975 mg PO Q8H PRN PRN Reason: Pain ALPRAZolam [Xanax] 0.5 mg PO TID PRN PRN Reason: Anxiety Multivitamins, Thera [Multivitamin (formulary)] 1 tab PO DAILY ondansetron HCL [Zofran] 8 mg PO Q8HR PRN PRN Reason: Nausea Varenicline [Chantix Continuing Pack] 1 mg PO BID Discontinued Meloxicam [Mobic] 15 mg PO DAILY Ketorolac [Toradol] 10 mg PO Q6HR PRN PRN Reason: Pain Celecoxib [CeleBREX] 200 mg PO DAILY No Action Orphenadrine Citrate [Orphenadrine Citrate ER] 100 mg PO BID PRN PRN Reason: Muscle Spasm Phentermine HCl [Adipex-P] 37.5 mg PO AC-BRKFST Naloxone HCl [Narcan] 4 mg NASAL ONCE PRN PRN Reason: overdose Discharge Medication List DULoxetine HCL [Cymbalta] 60 mg PO BID 04/01/19 [History] traZODone HCL 100 mg PO HS 12/03/19 [History] Apixaban [Eliquis] 5 mg PO Q12H 12/17/19 [History] Hydrocortisone [Cortef] 30 mg PO DAILY 10/07/20 [History] Morphine Sulfate ER [Ms Contin] 15 mg PO Q12H 10/07/20 [History] Hydrocortisone [Cortef] 20 mg PO HS 04/26/21 [History] Acetaminophen [Tylenol] 975 mg PO Q8H PRN 05/05/22 [History] Albuterol Sulfate [Proair Hfa] 2 puff INHALATION RT-Q6H PRN 05/05/22 [History] Amitriptyline HCl [Elavil] 100 mg PO HS 05/05/22 [History] Ergocalciferol [Vitamin D2 (1250 Mcg = 62548 Iu)] 1,250 mcg PO MO 05/05/22 [History] Omeprazole 20 mg PO DAILY 05/05/22 [History] buPROPion XL [Wellbutrin XL] 300 mg PO DAILY 05/05/22 [History] ALPRAZolam [Xanax] 0.5 mg PO TID PRN 05/31/23 [History] Ascorbic Acid [Vitamin C] 1,000 mg PO DAILY 05/31/23 [History] Calcium Carbonate [Calcium] 600 mg PO DAILY 05/31/23 [History] Cariprazine HCl [Vraylar] 1.5 mg PO DAILY 05/31/23 [History] Levothyroxine Sodium [Synthroid] 100 mcg PO DAILY 05/31/23 [History] Multivitamins, Thera [Multivitamin (formulary)] 1 tab PO DAILY 05/31/23 [History] Naloxone HCl [Narcan] 4 mg NASAL ONCE PRN 05/31/23 [History] Orphenadrine Citrate [Orphenadrine Citrate ER] 100 mg PO BID PRN 05/31/23 [History] Phentermine HCl [Adipex-P] 37.5 mg PO AC-BRKFST 05/31/23 [History] Pregabalin [Lyrica] 200 mg PO TID 05/31/23 [History] Semaglutide [Ozempic] 1 mg SQ MO 05/31/23 [History] Tiotropium Br/Olodaterol HCl [Stiolto Respimat Inhal Robinson] 2 puff INHALATION RT-DAILY 05/31/23 [History] oxyCODONE-APAP 10-325MG [Percocet 10-325 mg] 1 tab PO Q6H PRN 05/31/23 [History] ondansetron HCL [Zofran] 8 mg PO Q8HR PRN 07/03/23 [History] Ondansetron [Zofran] 4 mg PO DAILY 10/01/23 [History] Varenicline [Chantix Continuing Pack] 1 mg PO BID 10/01/23 [History] Ertapenem [INVanz] 1 gm IVPB DAILY each 10/05/23 [Rx] Phenazopyridine [Pyridium] 100 mg PO TID 2 Days #6 tab 10/05/23 [Rx] Follow up Appointment(s)/Referral(s): Richy Palomino MD [Primary Care Provider] - 1-2 days (Office is not answering. Please call for follow-up appointment.) [facility] - As Needed [facility], [REFERRING] - As Needed (Antibiotics will be delivered tonight between 6-8p) Patient Instructions/Handouts: Urinary Tract Infection in Women (DC) Activity/Diet/Wound Care/Special Instructions: heart healthy diet activity is restricted till you see your doctor we recommend to discontinue your picc line after finishing your course of intravenous antibiotics Discharge Disposition: HOME WITH HOME HEALTH SERVICES
== END 2023-10-05 15:19 | disposition home health service (06) | DRG 690 ==
LOC: EC 18:30 → 4SSUR 21:11
PROVIDERS: ADMIT Family Medicine; ATTEND Family Medicine
PROC: 05HF33Z Insertion of Infusion Device into Left Cephalic Vein, Percutaneous Approach (ICD-10-PCS; principal; 2023-10-05 07:30)
DX: N39.0 Urinary tract infection, site not specified (principal); D68.51 Activated protein C resistance; Z16.12 Extended spectrum beta lactamase (ESBL) resistance; B96.20 Unspecified Escherichia coli [E. coli] as the cause of diseases classified elsewhere; E78.5 Hyperlipidemia, unspecified; E86.0 Dehydration; F17.210 Nicotine dependence, cigarettes, uncomplicated; F32.A Depression, unspecified; F41.9 Anxiety disorder, unspecified; G35 Multiple sclerosis; F90.9 Attention-deficit hyperactivity disorder, unspecified type; E05.90 Thyrotoxicosis, unspecified without thyrotoxic crisis or storm; G47.30 Sleep apnea, unspecified; J44.9 Chronic obstructive pulmonary disease, unspecified; Z86.718 Personal history of other venous thrombosis and embolism; M19.90 Unspecified osteoarthritis, unspecified site; H91.90 Unspecified hearing loss, unspecified ear; M79.7 Fibromyalgia; J45.909 Unspecified asthma, uncomplicated; Z87.01 Personal history of pneumonia (recurrent); K21.9 Gastro-esophageal reflux disease without esophagitis; I11.0 Hypertensive heart disease with heart failure; I50.9 Heart failure, unspecified; M51.36 Other intervertebral disc degeneration, lumbar region; Z79.01 Long term (current) use of anticoagulants; Z79.1 Long term (current) use of non-steroidal anti-inflammatories (NSAID); Z79.890 Hormone replacement therapy; Z79.899 Other long term (current) drug therapy; Z82.49 Family history of ischemic heart disease and other diseases of the circulatory system; Z86.19 Personal history of other infectious and parasitic diseases; Z87.440 Personal history of urinary (tract) infections; Z88.1 Allergy status to other antibiotic agents; Z90.49 Acquired absence of other specified parts of digestive tract; Z98.51 Tubal ligation status
CPT/HCPCS: 36410; 36415; 76770; 76937; 80048; 80053; 81001; 83605; 85025; 85027; 87040; 87077; 87086; 87186; 96365; 99285

== ENCOUNTER 2023-11-20 14:37 | Emergency (ER) | payer MEDICARE, OTHER ==
[2023-11-20 15:34] LABS: Basophils # (A) 0.2 k/uL (0-0.2); Basophils % (A) 1 %; Eosinophils # (A) 0.4 k/uL (0-0.7); Eosinophils % (A) 2 %; HGB 14.2 gm/dL (11.4-16.0); Hypochromasia Moderate; Lymphocytes # (A) 2.6 k/uL (1.0-4.8); Lymphocytes % (A) 13 %; MCH 25.4 pg (25.0-35.0); MCHC 32.2 g/dL (31.0-37.0); Mean Platelet Volume 8.6; Monocytes % (A) 5 %; Neutrophils # (A) 15.6 k/uL (1.3-7.7); Neutrophils % (A) 78 %; Platelet Count 267 k/uL (150-450); RBC 5.57 m/uL (3.80-5.40); RDW 15.2 % (11.5-15.5); WBC 20.1 k/uL (3.8-10.6)
[2023-11-20 15:38] LABS: INR 0.9 (<1.2); Prothrombin Time 10.1 sec (10.0-12.5)
--- NOTE | 2023-11-20 15:45 | ED ---
SOB HPI - General Chief Complaint: Shortness of Breath Stated Complaint: SOB Time Seen by Provider: 11/20/23 15:21 Source: patient Mode of arrival: ambulatory Limitations: no limitations - History of Present Illness Initial Comments: This patient is a 53-year-old woman who states she has history of asthma and COPD, and was sent here from her physicians clinic to have further evaluation. Patient states that they had her walk around the clinic and that her oxygen saturations went to the mid to low 80s. The patient states she has felt shortness of breath and cough going back approximately 2 weeks now. She states that at the time of onset she had swab for COVID and influenza and that they were negative. She states that her symptoms have not fully improved so she went to the clinic today. The patient states the cough is largely nonproductive. She is not having chest pain. She has not had change in urination or bowel movements. No leg pain or swelling. She does have history of previous DVT and does take eliquis, stating she has not missed doses. MD Complaint: shortness of breath, cough - Related Data Home Medications Medication Instructions Recorded Confirmed DULoxetine HCL [Cymbalta] 60 mg PO BID 04/01/19 10/01/23 traZODone HCL 100 mg PO HS 12/03/19 10/01/23 Apixaban [Eliquis] 5 mg PO Q12H 12/17/19 10/01/23 Hydrocortisone [Cortef] 30 mg PO DAILY 10/07/20 10/01/23 Morphine Sulfate ER [Ms Contin] 15 mg PO Q12H 10/07/20 10/01/23 Hydrocortisone [Cortef] 20 mg PO HS 04/26/21 10/01/23 Acetaminophen [Tylenol] 975 mg PO Q8H PRN 05/05/22 10/01/23 Albuterol Sulfate [Proair Hfa] 2 puff INHALATION RT-Q6H PRN 05/05/22 10/01/23 Amitriptyline HCl [Elavil] 100 mg PO HS 05/05/22 10/01/23 Ergocalciferol [Vitamin D2 (1250 1,250 mcg PO MO 05/05/22 10/01/23 Mcg = 96810 Iu)] Omeprazole 20 mg PO DAILY 05/05/22 10/01/23 buPROPion XL [Wellbutrin XL] 300 mg PO DAILY 05/05/22 10/01/23 ALPRAZolam [Xanax] 0.5 mg PO TID PRN 05/31/23 10/01/23 Ascorbic Acid [Vitamin C] 1,000 mg PO DAILY 05/31/23 10/01/23 Calcium Carbonate [Calcium] 600 mg PO DAILY 05/31/23 10/01/23 Cariprazine HCl [Vraylar] 1.5 mg PO DAILY 05/31/23 10/01/23 Levothyroxine Sodium [Synthroid] 100 mcg PO DAILY 05/31/23 10/01/23 Multivitamins, Thera [Multivitamin 1 tab PO DAILY 05/31/23 10/01/23 (formulary)] Naloxone HCl [Narcan] 4 mg NASAL ONCE PRN 05/31/23 10/01/23 Orphenadrine Citrate [Orphenadrine 100 mg PO BID PRN 05/31/23 10/01/23 Citrate ER] Phentermine HCl [Adipex-P] 37.5 mg PO AC-BRKFST 05/31/23 10/01/23 Pregabalin [Lyrica] 200 mg PO TID 05/31/23 10/01/23 Semaglutide [Ozempic] 1 mg SQ MO 05/31/23 10/01/23 Tiotropium Br/Olodaterol HCl 2 puff INHALATION RT-DAILY 05/31/23 10/01/23 [Stiolto Respimat Inhal [place]] oxyCODONE-APAP 10-325MG [Percocet 1 tab PO Q6H PRN 05/31/23 10/01/23 10-325 mg] ondansetron HCL [Zofran] 8 mg PO Q8HR PRN 07/03/23 10/01/23 Ondansetron [Zofran] 4 mg PO DAILY 10/01/23 10/01/23 Varenicline [Chantix Continuing 1 mg PO BID 10/01/23 10/01/23 Pack] Previous Rx's Medication Instructions Recorded Ertapenem [INVanz] 1 gm IVPB DAILY each 10/05/23 Phenazopyridine [Pyridium] 100 mg PO TID 2 Days #6 tab 10/05/23 Azithromycin [Zithromax] 0 mg PO DIRECTED #6 tab 11/20/23 Allergies Allergy/AdvReac Type Severity Reaction Status Date / Time amoxicillin [From Augmentin] Allergy Diarrhea, Verified 10/01/23 22:55 hives clavulanic acid Allergy Diarrhea, Verified 10/01/23 22:55 [From Augmentin] hives doxycycline Allergy Rash/Hives Verified 10/01/23 22:55 glatiramer (copolymer 1) Allergy Rapid Verified 10/01/23 22:55 [From Copaxone] Heart Rate,hives, skin flushing sulfamethoxazole Allergy blisters Verified 10/01/23 22:55 [From Bactrim] in mouth, rash/hives trimethoprim [From Bactrim] Allergy blisters Verified 10/01/23 22:55 in mouth, rash/hives steroids AdvReac genital Uncoded 10/01/23 22:55 burning & rashes but still takes steroids. Review of Systems ROS Statement: Those systems with pertinent positive or pertinent negative responses have been documented in the HPI. ROS Other: All systems not noted in ROS Statement are negative. Constitutional: Denies: fever, chills, weakness Respiratory: Reports: cough, dyspnea, wheezes Cardiovascular: Reports: dyspnea on exertion. Denies: chest pain, palpitations, edema, syncope Gastrointestinal: Denies: abdominal pain, vomiting, diarrhea, melena, hematochezia Genitourinary: Denies: dysuria, hematuria Musculoskeletal: Denies: back pain Skin: Denies: rash Neurological: Denies: headache, weakness Past Medical History Past Medical History: Asthma, Blood Disorder, Heart Failure, COPD, Deep Vein Thrombosis (DVT), Eye Disorder, Fibromyalgia, GERD/Reflux, Hearing Disorder / Deafness, Hyperlipidemia, Memory Impairment, Musculoskeletal Disorder, Neurologic Disorder, Osteoarthritis (OA), Pneumonia, Renal Disease, Skin Disorder, Sleep Apnea/CPAP/BIPAP, Syncope, Thyroid Disorder Additional Past Medical History / Comment(s): Multiple sclerosis, factor 5 leiden, RUBI-no device, DVT L leg 2014, hiatal hernia, hoarseness/leukoplakia, adrenal insufficiency/chronic steroid use/pituitary tumor, migraines, DJD, chronic back pain, bursitis, optic neuritis bilaterally, glaucoma , tinnitis, rosacea, insomnia, hypersomnia. bilat CTS, peripheral neuropathy, vertigo. hx infection at back surgery site. History of Any Multi-Drug Resistant Organisms: ESBL Date of last positivie culture/infection: 07/03/23 ESBL MDRO Source:: Urine Past Surgical History: Back Surgery, Bladder Surgery, Section, Cholecystectomy, Tubal Ligation Additional Past Surgical History / Comment(s): 09/24/18 bladder stimulator, redone 09/2020. 02/05/19 microlarygoscopy/bx, vocal cord polypectomies, cervical bx, bladder suspension, EGD with bx, colonoscopy,. Laminectomy w/ decompression (01/09/20), Drainage of seroma back (02/02/20), removal spinal hardware, I&D back wound,. PICC line. Past Anesthesia/Blood Transfusion Reactions: Motion Sickness Additional Past Anesthesia/Blood Transfusion Reaction / Comment(s): occasional bad headaches. Past Psychological History: ADD/ADHD, Anxiety, Depression Smoking Status: Current every day smoker Past Alcohol Use History: None Reported Past Drug Use History: None Reported - Past Family History Brother(s) Family Medical History: Deep Vein Thrombosis (DVT) Father Family Medical History: Deep Vein Thrombosis (DVT) Additional Family Medical History / Comment(s): Patient states that her father has no cardiac history but his father had previous ID's. Mother Family Medical History: Cancer, Deep Vein Thrombosis (DVT), Pulmonary Embolus Additional Family Medical History / Comment(s): Cervical cancer. General Exam Limitations: no limitations General appearance: alert, in no apparent distress Head exam: Present: atraumatic, normocephalic Eye exam: Present: normal appearance. Absent: scleral icterus, conjunctival injection Neck exam: Present: normal inspection Respiratory exam: Present: wheezes. Absent: respiratory distress, rales, rhonchi, stridor, accessory muscle use Cardiovascular Exam: Present: normal rhythm, tachycardia (Rate 104 upon exam), normal heart sounds. Absent: systolic murmur, diastolic murmur, rubs, gallop GI/Abdominal exam: Present: soft. Absent: distended, tenderness, guarding, rebound, rigid, mass Extremities exam: Present: normal inspection, normal capillary refill. Absent: pedal edema, calf tenderness Back exam: Present: normal inspection. Absent: CVA tenderness (R), CVA te nderness (L) Neurological exam: Present: alert Skin exam: Present: warm, dry, intact, normal color. Absent: rash Course Vital Signs 11/20/23 11/20/23 11/20/23 14:45 17:10 17:19 Temperature 99 F Pulse Rate 115 H 98 102 H Respiratory 20 Rate Blood Pressure 146/90 O2 Sat by Pulse 91 L Oximetry 11/20/23 11/20/23 11/20/23 17:51 18:51 18:59 Temperature 98 F Pulse Rate 95 100 96 Respiratory 20 Rate Blood Pressure 105/73 O2 Sat by Pulse 92 L Oximetry 11/20/23 19:05 Temperature 97.8 F Pulse Rate 101 H Respiratory 18 Rate Blood Pressure 108/73 O2 Sat by Pulse 92 L Oximetry Medical Decision Making - Medical Decision Making The patient had chest x-ray that I interpreted as negative for acute infiltrate, pneumothorax, congestive heart failure Was pt. sent in by a medical professional or institution ([facility] Shah[facility], INFAN[employer]BER, urgent care, hospital, or long term...) When possible be specific @ -[Yes the patient was sent from clinic to have further evaluation Did you speak to anyone other than the patient for history (EMS, parent, family, police, friend...)? What history was obtained from this source @ -[No] Did you review nursing and triage notes (agree or disagree)? Why? @ -[I reviewed and agree with nursing and triage notes] Were old charts reviewed (outside hosp., previous admission, EMS record, old EKG, old radiological studies, urgent care reports/EKG's, long term records)? Report findings @ -[No old charts were reviewed] Differential Diagnosis (chest pain, altered mental status, abdominal pain women, abdominal pain men, vaginal bleeding, weakness, fever, dyspnea, syncope, headache, dizziness, GI bleed, back pain, seizure, CVA, palpatations, mental health, musculoskeletal)? @ -[Differential Dyspnea: Coronary syndrome, arrhythmia, tamponade, asthma, COPD, pulmonary embolism, pneumonia, pneumothorax, pulmonary effusion, anaphylaxis, diabetic ketoacidosis, flailed chest, pulmonary contusion, diaphragmatic rupture, anemia, neuromuscul ar, this is not meant to be an all-inclusive list. EKG interpreted by me (3pts min.). @ -[I interpreted as above] X-rays interpreted by me (1pt min.). @ -[I interpreted as above CT interpreted by me (1pt min.). @ -[None done] U/S interpreted by me (1pt. min.). @ -[None done] What testing was considered but not performed or refused? (CT, X-rays, U/S, labs)? Why? @ -[None] What meds were considered but not given or refused? Why? @ -[None] Did you discuss the management of the patient with other professionals (professionals i.e. DrMayra, PA, INF[employer] CREWMEMBER, lab, RT, psych nurse, social work program coordinator, air conditioning technician, te acher, ethics officer, case reviewer)? Give summary @ -[No] Was smoking cessation discussed for >3mins.? @ -Yes Was critical care preformed (if so, how long)? @ -[No] Were there social determinants of health that impacted care today? How? (Homelessness, low income, unemployed, alcoholism, drug addiction, transportation, low edu. Level, literacy, decrease access to med. care, usp, rehab)? @ -[No] Was there de-escalation of care discussed even if they declined (Discuss DNR or withdrawal of care, Hospice)? DNR status @ -[No] What co-morbidities impacted this encounter? (DM, HTN, Smoking, COPD, CAD, Cancer, CVA, ARF, Chemo, Hep., AIDS, mental health diagnosis, sleep apnea, morbid obesity)? @ -COPD Was patient admitted / discharged? Hospital course, mention meds given and route, prescriptions, significant lab abnormalities, going to OR and other pertinent info. @ -[Patient is feeling better following treatment here. At this point she feels that she can manage at home. We did discuss appropriate further care and follow-up as well as return parameters. Undiagnosed new problem with uncertain prognosis? @ -[No] Drug Therapy requiring intensive monitoring for toxicity (Heparin, Nitro, Insulin, Cardizem)? @ -[No] Were any procedures done? @ -[No] Diagnosis/symptom? @ -[Acute exacerbation of COPD Acute, or Chronic, or Acute on Chronic? @ -[Acute Uncomplicated (without systemic symptoms) or Complicated (systemic symptoms)? @ -[Uncomplicated Side effects of treatment? @ -[No] Exacerbation, Progression, or Severe Exacerbation? @ -[No] Poses a threat to life or bodily function? How? (Chest pain, USA, ID, pneumonia, PE, COPD, DKA, ARF, appy, cholecystitis, CVA, Diverticulitis, Homicidal, Suicidal, threat to staff... and all critical care pts) @ -[No] - Lab Data Result diagrams: 11/20/23 15:01 11/20/23 15:01 Lab Results 11/20/23 11/20/23 11/20/23 Range/Units 15:01 15:01 15:01 WBC 20.1 H (3.8-10.6) k/uL RBC 5.57 H (3.80-5.40) m/uL Hgb 14.2 (11.4-16.0) gm/dL Hct 44.0 (34.0-46.0) % MCV 79.0 L D (80.0-100.0) fL MCH 25.4 (25.0-35.0) pg MCHC 32.2 (31.0-37.0) g/dL RDW 15.2 (11.5-15.5) % Plt Count 267 (150-450) k/uL MPV 8.6 Neutrophils % 78 % Lymphocytes % 13 % Monocytes % 5 % Eosinophils % 2 % Basophils % 1 % Neutrophils # 15.6 H (1.3-7.7) k/uL Lymphocytes # 2.6 (1.0-4.8) k/uL Monocytes # 1.0 (0-1.0) k/uL Eosinophils # 0.4 (0-0.7) k/uL Basophils # 0.2 (0-0.2) k/uL Hypochromasia Moderate PT 10.1 (10.0-12.5) sec INR 0.9 (<1.2) APTT 29.0 (22.0-30.0) sec D-Dimer (<0.60) mg/L FEU Sodium 139 (137-145) mmol/L Potassium 4.9 (3.5-5.1) mmol/L Chloride 102 (98-107) mmol/L Carbon Dioxide 28 (22-30) mmol/L Anion Gap 9 mmol/L BUN 23 H (7-17) mg/dL Creatinine 0.81 (0.52-1.04) mg/dL Est GFR (CKD-EPI)AfAm >90 (>60 ml/min/1.73 sqM) Est GFR (CKD-EPI)NonAf 84 (>60 ml/min/1.73 sqM) Glucose 112 H (74-99) mg/dL Plasma Lactic Acid Jasbir (0.7-2.0) mmol/L Calcium 9.8 (8.4-10.2) mg/dL Total Bilirubin 0.7 (0.2-1.3) mg/dL AST 35 (14-36) U/L ALT 31 (4-34) U/L Alkaline Phosphatase 88 (38-126) U/L Troponin I (0.000-0.034) ng/mL NT-Pro-B Natriuret Pep pg/mL Total Protein 7.1 (6.3-8.2) g/dL Albumin 4.7 (3.5-5.0) g/dL Influenza Type A (PCR) (Not Detectd) Influenza Type B (PCR) (Not Detectd) RSV (PCR) (Not Detectd) SARS-CoV-2 (PCR) (Not Detectd) 11/20/23 11/20/23 11/20/23 Range/Units 15:01 15:01 15:01 WBC (3.8-10.6) k/uL RBC (3.80-5.40) m/uL Hgb (11.4-16.0) gm/dL Hct (34.0-46.0) % MCV (80.0-100.0) fL MCH (25.0-35.0) pg MCHC (31.0-37.0) g/dL RDW (11.5-15.5) % Plt Count (150-450) k/uL MPV Neutrophils % % Lymphocytes % % Monocytes % % Eosinophils % % Basophils % % Neutrophils # (1.3-7.7) k/uL Lymphocytes # (1.0-4.8) k/uL Monocytes # (0-1.0) k/uL Eosinophils # (0-0.7) k/uL Basophils # (0-0.2) k/uL Hypochromasia PT (10.0-12.5) sec INR (<1.2) APTT (22.0-30.0) sec D-Dimer 0.45 (<0.60) mg/L FEU Sodium (137-145) mmol/L Potassium (3.5-5.1) mmol/L Chloride (98-107) mmol/L Carbon Dioxide (22-30) mmol/L Anion Gap mmol/L BUN (7-17) mg/dL Creatinine (0.52-1.04) mg/dL Est GFR (CKD-EPI)AfAm (>60 ml/min/1.73 sqM) Est GFR (CKD-EPI)NonAf (>60 ml/min/1.73 sqM) Glucose (74-99) mg/dL Plasma Lactic Acid Jasbir 1.1 (0.7-2.0) mmol/L Calcium (8.4-10.2) mg/dL Total Bilirubin (0.2-1.3) mg/dL AST (14-36) U/L ALT (4-34) U/L Alkaline Phosphatase (38-126) U/L Troponin I <0.012 (0.000-0.034) ng/mL NT-Pro-B Natriuret Pep pg/mL Total Protein (6.3-8.2) g/dL Albumin (3.5-5.0) g/dL Influenza Type A (PCR) (Not Detectd) Influenza Type B (PCR) (Not Detectd) RSV (PCR) (Not Detectd) SARS-CoV-2 (PCR) (Not Detectd) 11/20/23 11/20/23 Range/Units 15:26 15:46 WBC (3.8-10.6) k/uL RBC (3.80-5.40) m/uL Hgb (11.4-16.0) gm/dL Hct (34.0-46.0) % MCV (80.0-100.0) fL MCH (25.0-35.0) pg MCHC (31.0-37.0) g/dL RDW (11.5-15.5) % Plt Count (150-450) k/uL MPV Neutrophils % % Lymphocytes % % Monocytes % % Eosinophils % % Basophils % % Neutrophils # (1.3-7.7) k/uL Lymphocytes # (1.0-4.8) k/uL Monocytes # (0-1.0) k/uL Eosinophils # (0-0.7) k/uL Basophils # (0-0.2) k/uL Hypochromasia PT (10.0-12.5) sec INR (<1.2) APTT (22.0-30.0) sec D-Dimer (<0.60) mg/L FEU Sodium (137-145) mmol/L Potassium (3.5-5.1) mmol/L Chloride (98-107) mmol/L Carbon Dioxide (22-30) mmol/L Anion Gap mmol/L BUN (7-17) mg/dL Creatinine (0.52-1.04) mg/dL Est GFR (CKD-EPI)AfAm (>60 ml/min/1.73 sqM) Est GFR (CKD-EPI)NonAf (>60 ml/min/1.73 sqM) Glucose (74-99) mg/dL Plasma Lactic Acid Jasbir (0.7-2.0) mmol/L Calcium (8.4-10.2) mg/dL Total Bilirubin (0.2-1.3) mg/dL AST (14-36) U/L ALT (4-34) U/L Alkaline Phosphatase (38-126) U/L Troponin I (0.000-0.034) ng/mL NT-Pro-B Natriuret Pep 48 pg/mL Total Protein (6.3-8.2) g/dL Albumin (3.5-5.0) g/dL Influenza Type A (PCR) Not Detected (Not Detectd) Influenza Type B (PCR) Not Detected (Not Detectd) RSV (PCR) Not Detected (Not Detectd) SARS-CoV-2 (PCR) Not Detected (Not Detectd) - EKG Data -: EKG Interpreted by [facility] EKG shows normal: sinus rhythm, axis (Normal), intervals (Normal), QRS complexes (Low voltage QRS complexes), ST-T waves (Normal) Rate: tachycardia (Rate 109 bpm) Disposition Clinical Impression: COPD (chronic obstructive pulmonary disease) Disposition: HOME SELF-CARE Condition: Good Instructions (If sedation given, give patient instructions): COPD (Chronic Obstructive Pulmonary Disease) (ED) Prescriptions: Azithromycin [Zithromax] 0 mg PO DIRECTED #6 tab Is patient prescribed a controlled substance at d/c from ED?: No Referrals: Richy Palomino MD [Primary Care Provider] - 1-2 days
[2023-11-20 15:48] LABS: ALT 31 U/L (4-34); AST 35 U/L (14-36); African American GFR (CKD) >90 (>60 ml/min/1.73 sqM); Albumin 4.7 g/dL (3.5-5.0); Alkaline Phosphatase 88 U/L (38-126); Anion Gap 9 mmol/L; Blood Urea Nitrogen 23 mg/dL (7-17); Calcium 9.8 mg/dL (8.4-10.2); Carbon Dioxide 28 mmol/L (22-30); Chloride 102 mmol/L (98-107); Glucose 112 mg/dL (74-99); Non-African American GFR(CKD) 84 (>60 ml/min/1.73 sqM); Potassium 4.9 mmol/L (3.5-5.1); Sodium 139 mmol/L (137-145); Total Bilirubin 0.7 mg/dL (0.2-1.3); Total Protein 7.1 g/dL (6.3-8.2)
[2023-11-20] MEDS: HYDROcodone/APAP 7.5-325MG 1 EACH TAB PO ONE (16:03)
[2023-11-20] MEDS: ALPRAZolam 0.5 MG TAB PO STA (16:04)
--- NOTE | 2023-11-20 16:04 | XR ---
EXAMINATION TYPE: XR chest 2V DATE OF EXAM: 11/20/2023 3:59 PM CLINICAL INDICATION:Female, 53 years old with history of difficulty breathing; [facility] COMPARISON: Chest radiographs from 05/31/2023. TECHNIQUE: XR chest 2V Frontal and lateral views of the chest. FINDINGS: Lungs/Pleura: There is no evidence of pleural effusion, focal consolidation, or pneumothorax. Pulmonary vascularity: Unremarkable. Heart/mediastinum: Cardiomediastinal silhouette is unremarkable. Musculoskeletal: No acute osseous pathology. IMPRESSION: No acute cardiopulmonary disease/process.
[2023-11-20] MEDS: IPRATROPIUM-ALBUTEROL 3 ML NEB INHALATION STA (17:08)
[2023-11-20] MEDS: AZITHROMYCIN 500 MG TAB PO STA (18:06)
[2023-11-20] MEDS: ALBUTEROL NEBULIZED 2.5 MG/3 ML INHALATION STA (18:50)
[2023-11-20 19:17] VITALS: BP 108/73; PULSE 101; RESP 18; TEMP 97.8
== END 2023-11-20 19:09 | disposition home or self-care (01) ==
LOC: EC 14:37
DX: J44.1 Chronic obstructive pulmonary disease with (acute) exacerbation (principal); R00.0 Tachycardia, unspecified; F17.200 Nicotine dependence, unspecified, uncomplicated; Z88.1 Allergy status to other antibiotic agents; Z88.2 Allergy status to sulfonamides; Z88.8 Allergy status to other drugs, medicaments and biological substances
CPT/HCPCS: 36415; 71046; 80053; 83605; 83880; 84484; 85025; 85379; 85610; 85730; 87636; 93005; 94640; 99285

== ENCOUNTER 2024-04-10 13:06 | Inpatient (IN) | payer MEDICARE, OTHER ==
[~2024-04-10 13:06] MED LIST changes: +ALBUTEROL NEBULIZED 2.5 MG/3 ML INHALATION ONE; +HYDROmorphone 1 MG/ML 1 ML SYRINGE ONE; +IPRATROPIUM 0.5 MG/2.5 ML NEBU INHALATION ONE; +KETOROLAC 15 MG/ML 1 ML VIAL ONE; -LACTATED RINGERS 1,000 ML IV SCH; -LIDOCAINE 1% (10MG/ML) FOR IV START INTRADERMA PRN; -MIDAZOLAM 2 MG/2 ML VIAL IV PRN; +diphenhydrAMINE 50 MG/ML 1 ML VIAL ONE; +methylPREDNISolone SOD SUCCI 125 MG/2 ML VIAL ONE
[2024-04-10] MEDS ORDERED: NICOTINE 14MG/24HR PATCH TRANSDERM ONE (14:18)
[2024-04-10] MEDS ORDERED: AZITHROMYCIN 500 MG VIAL IVPB ONE (14:18)
[2024-04-10] MEDS ORDERED: IPRATROPIUM-ALBUTEROL 3 ML NEB ONE (17:20)
[2024-04-10] MEDS ORDERED: HYDROmorphone 1 MG/ML 1 ML SYRINGE ONE (17:46)
[2024-04-10] MEDS ORDERED: DULoxetine HCL 60 MG CAPSULE.DR PO ONE (22:13)
[2024-04-10] MEDS ORDERED: traZODone HCL 100 MG TAB ONE (22:14)
[2024-04-10] MEDS ORDERED: MONTELUKAST 10 MG TAB ONE (22:14)
[2024-04-10] MEDS ORDERED: diphenhydrAMINE 25 MG CAP ONE ×2 (22:14→23:29)
[2024-04-10] MEDS ORDERED: PREGABALIN 100 MG CAP ONE (22:16)
[2024-04-10] MEDS ORDERED: INSULIN ASPART (NovoLOG) 100 UNIT/ML VIAL SQ ONE (22:17)
[2024-04-10] MEDS ORDERED: MORPHINE SULFATE ER 15 MG TABLET PO ONE (22:17)
[2024-04-10] MEDS ORDERED: MECLIZINE 12.5 MG TAB ONE (23:29)
[2024-04-10] MEDS ORDERED: oxyCODONE-APAP 10-325MG 1 EACH TAB ONE (23:29)
[2024-04-10] MEDS ORDERED: APIXABAN 5 MG TAB ONE (23:30)
[2024-04-10] MEDS ORDERED: AMITRIPTYLINE HCL 50 MG TAB ONE (23:30)
[2024-04-10] MEDS ORDERED: SODIUM CHLORIDE 0.9% 250 ML BAG ONE (23:59)
[2024-04-10] MEDS ORDERED: HEPARIN SODIUM,PORCINE 5,000 UNIT/ML 1 ML VIAL ONE (23:59)
[2024-04-10] MEDS ORDERED: NICOTINE 7MG/24HR PATCH TRANSDERM ONE (23:59)
[2024-04-11] MEDS ORDERED: methylPREDNISolone SOD SUCCI 125 MG/2 ML VIAL ONE ×4 (00:23→17:12)
[2024-04-11] MEDS ORDERED: LEVOTHYROXINE 100 MCG TAB ONE (06:50)
[2024-04-11] MEDS ORDERED: diphenhydrAMINE 25 MG CAP ONE ×3 (06:59→22:00)
[2024-04-11] MEDS ORDERED: AZITHROMYCIN 500 MG TAB ONE (09:14)
[2024-04-11] MEDS ORDERED: DULoxetine HCL 60 MG CAPSULE.DR PO ONE ×2 (09:15→21:30)
[2024-04-11] MEDS ORDERED: APIXABAN 5 MG TAB ONE ×2 (09:17→21:22)
[2024-04-11] MEDS ORDERED: oxyCODONE-APAP 10-325MG 1 EACH TAB ONE ×3 (09:18→21:33)
[2024-04-11] MEDS ORDERED: PREGABALIN 100 MG CAP ONE ×3 (09:19→21:35)
[2024-04-11] MEDS ORDERED: MORPHINE SULFATE ER 15 MG TABLET PO ONE ×2 (09:19→22:01)
[2024-04-11] MEDS ORDERED: AZITHROMYCIN 500 MG VIAL IVPB ONE (10:11)
[2024-04-11] MEDS ORDERED: PANTOPRAZOLE 40 MG/10 ML VIAL ONE (12:21)
[2024-04-11] MEDS ORDERED: CITALOPRAM HYDROBROMIDE 10 MG TAB PO ONE (12:21)
[2024-04-11] MEDS ORDERED: NICOTINE 21MG/24HR PATCH TRANSDERM ONE (12:22)
[2024-04-11] MEDS ORDERED: HYDROmorphone 1 MG/ML 1 ML SYRINGE ONE (20:18)
[2024-04-11] MEDS ORDERED: CITALOPRAM HYDROBROMIDE 20 MG TAB ONE (21:20)
[2024-04-11] MEDS ORDERED: amLODIPine 10 MG TAB ONE (21:21)
[2024-04-11] MEDS ORDERED: traZODone HCL 100 MG TAB ONE (21:21)
[2024-04-11] MEDS ORDERED: MONTELUKAST 10 MG TAB ONE (21:31)
[2024-04-11] MEDS ORDERED: MECLIZINE 25 MG TAB ONE (22:03)
[2024-04-11] MEDS ORDERED: INSULIN ASPART (NovoLOG) 100 UNIT/ML VIAL SQ ONE ×2 (22:19→23:59)
[2024-04-11] MEDS ORDERED: IPRATROPIUM-ALBUTEROL 3 ML NEB ONE (23:59)
[2024-04-11] MEDS ORDERED: NICOTINE 7MG/24HR PATCH TRANSDERM ONE (23:59)
[2024-04-11] MEDS ORDERED: HYDROCORTISONE 10 MG TAB ONE (23:59)
[2024-04-11] MEDS ORDERED: SODIUM CHLORIDE 0.9% 250 ML BAG ONE (23:59)
[2024-04-12] MEDS ORDERED: HYDROmorphone 1 MG/ML 1 ML SYRINGE ONE ×6 (01:19→20:28)
[2024-04-12] MEDS ORDERED: methylPREDNISolone SOD SUCCI 125 MG/2 ML VIAL ONE ×5 (01:20→23:19)
[2024-04-12] MEDS ORDERED: LEVOTHYROXINE 100 MCG TAB ONE (05:48)
[2024-04-12] MEDS ORDERED: PREGABALIN 100 MG CAP ONE ×3 (08:49→21:23)
[2024-04-12] MEDS ORDERED: DULoxetine HCL 60 MG CAPSULE.DR PO ONE ×2 (08:49→21:20)
[2024-04-12] MEDS ORDERED: MORPHINE SULFATE ER 15 MG TABLET PO ONE ×2 (08:50→21:46)
[2024-04-12] MEDS ORDERED: CITALOPRAM HYDROBROMIDE 20 MG TAB ONE (08:51)
[2024-04-12] MEDS ORDERED: SODIUM CHLORIDE 0.9% 250 ML BAG ONE (09:00)
[2024-04-12] MEDS ORDERED: AZITHROMYCIN 500 MG VIAL IVPB ONE (09:00)
[2024-04-12] MEDS ORDERED: oxyCODONE-APAP 10-325MG 1 EACH TAB ONE ×3 (09:02→23:34)
[2024-04-12] MEDS ORDERED: diphenhydrAMINE 25 MG CAP ONE ×2 (12:18→22:00)
[2024-04-12] MEDS ORDERED: APIXABAN 5 MG TAB ONE (21:19)
[2024-04-12] MEDS ORDERED: MONTELUKAST 10 MG TAB ONE (21:20)
[2024-04-12] MEDS ORDERED: traZODone HCL 50 MG TAB ONE (21:47)
[2024-04-12] MEDS ORDERED: TEMAZEPAM 7.5 MG CAP ONE (21:50)
[2024-04-12] MEDS ORDERED: INSULIN ASPART (NovoLOG) 100 UNIT/ML VIAL SQ ONE (22:01)
[2024-04-12] MEDS ORDERED: IPRATROPIUM-ALBUTEROL 3 ML NEB ONE (23:59)
[2024-04-13] MEDS ORDERED: methylPREDNISolone SOD SUCCI 125 MG/2 ML VIAL ONE ×5 (04:34→23:24)
[2024-04-13] MEDS ORDERED: HYDROmorphone 1 MG/ML 1 ML SYRINGE ONE ×5 (06:24→22:53)
[2024-04-13] MEDS ORDERED: INSULIN ASPART (NovoLOG) 100 UNIT/ML VIAL SQ ONE ×3 (06:39→21:31)
[2024-04-13] MEDS ORDERED: IPRATROPIUM-ALBUTEROL 3 ML NEB ONE ×2 (07:28→23:59)
[2024-04-13] MEDS ORDERED: amLODIPine 5 MG TAB ONE (08:46)
[2024-04-13] MEDS ORDERED: DULoxetine HCL 60 MG CAPSULE.DR PO ONE ×2 (08:47→19:55)
[2024-04-13] MEDS ORDERED: LEVOTHYROXINE 100 MCG TAB ONE (08:47)
[2024-04-13] MEDS ORDERED: APIXABAN 5 MG TAB ONE ×2 (08:49→19:55)
[2024-04-13] MEDS ORDERED: PANTOPRAZOLE 40 MG/10 ML VIAL ONE (08:50)
[2024-04-13] MEDS ORDERED: PREGABALIN 100 MG CAP ONE ×3 (08:51→20:06)
[2024-04-13] MEDS ORDERED: MORPHINE SULFATE ER 15 MG TABLET PO ONE ×2 (08:52→20:06)
[2024-04-13] MEDS ORDERED: oxyCODONE-APAP 10-325MG 1 EACH TAB ONE ×3 (08:52→21:44)
[2024-04-13] MEDS ORDERED: diphenhydrAMINE 25 MG CAP ONE ×3 (12:29→23:59)
[2024-04-13] MEDS ORDERED: MONTELUKAST 10 MG TAB ONE (19:55)
[2024-04-13] MEDS ORDERED: traZODone HCL 50 MG TAB ONE (21:44)
[2024-04-13] MEDS ORDERED: TEMAZEPAM 7.5 MG CAP ONE (21:44)
[2024-04-13] MEDS ORDERED: MECLIZINE 25 MG TAB ONE (21:45)
[2024-04-13] MEDS ORDERED: HYDROCORTISONE 10 MG TAB ONE (23:59)
[2024-04-13] MEDS ORDERED: NICOTINE 7MG/24HR PATCH TRANSDERM ONE (23:59)
[2024-04-13] MEDS ORDERED: AMITRIPTYLINE HCL 50 MG TAB ONE (23:59)
[2024-04-14] MEDS ORDERED: HYDROmorphone 1 MG/ML 1 ML SYRINGE ONE ×5 (01:28→19:48)
[2024-04-14] MEDS ORDERED: IPRATROPIUM-ALBUTEROL 3 ML NEB ONE ×2 (05:13→23:59)
[2024-04-14] MEDS ORDERED: LEVOTHYROXINE 100 MCG TAB ONE (05:57)
[2024-04-14] MEDS ORDERED: methylPREDNISolone SOD SUCCI 125 MG/2 ML VIAL ONE ×3 (05:57→19:40)
[2024-04-14] MEDS ORDERED: diphenhydrAMINE 25 MG CAP ONE ×3 (06:20→18:01)
[2024-04-14] MEDS ORDERED: INSULIN ASPART (NovoLOG) 100 UNIT/ML VIAL SQ ONE ×3 (06:20→20:31)
[2024-04-14] MEDS ORDERED: DULoxetine HCL 60 MG CAPSULE.DR PO ONE ×2 (10:58→19:40)
[2024-04-14] MEDS ORDERED: PANTOPRAZOLE 40 MG/10 ML VIAL ONE (10:58)
[2024-04-14] MEDS ORDERED: amLODIPine 5 MG TAB ONE (10:58)
[2024-04-14] MEDS ORDERED: APIXABAN 5 MG TAB ONE ×2 (10:58→19:41)
[2024-04-14] MEDS ORDERED: PREGABALIN 100 MG CAP ONE ×3 (11:01→21:46)
[2024-04-14] MEDS ORDERED: MORPHINE SULFATE ER 15 MG TABLET PO ONE ×2 (11:01→21:46)
[2024-04-14] MEDS ORDERED: oxyCODONE-APAP 10-325MG 1 EACH TAB ONE ×2 (11:13→16:49)
[2024-04-14] MEDS ORDERED: MONTELUKAST 10 MG TAB ONE (19:40)
[2024-04-14] MEDS ORDERED: traZODone HCL 50 MG TAB ONE (21:46)
[2024-04-14] MEDS ORDERED: TEMAZEPAM 7.5 MG CAP ONE (21:51)
[2024-04-14] MEDS ORDERED: NICOTINE 7MG/24HR PATCH TRANSDERM ONE (23:59)
[2024-04-14] MEDS ORDERED: HYDROCORTISONE 10 MG TAB ONE (23:59)
[2024-04-14] MEDS ORDERED: AMITRIPTYLINE HCL 50 MG TAB ONE (23:59)
[2024-04-15] MEDS ORDERED: methylPREDNISolone SOD SUCCI 125 MG/2 ML VIAL ONE ×4 (01:27→21:14)
[2024-04-15] MEDS ORDERED: LEVOTHYROXINE 100 MCG TAB ONE (06:29)
[2024-04-15] MEDS ORDERED: INSULIN ASPART (NovoLOG) 100 UNIT/ML VIAL SQ ONE ×2 (06:30→21:33)
[2024-04-15] MEDS ORDERED: APIXABAN 5 MG TAB ONE ×2 (09:09→21:13)
[2024-04-15] MEDS ORDERED: DULoxetine HCL 60 MG CAPSULE.DR PO ONE ×2 (09:09→21:13)
[2024-04-15] MEDS ORDERED: amLODIPine 5 MG TAB ONE (09:09)
[2024-04-15] MEDS ORDERED: PREGABALIN 100 MG CAP ONE ×3 (09:22→21:12)
[2024-04-15] MEDS ORDERED: MORPHINE SULFATE ER 15 MG TABLET PO ONE ×2 (09:23→21:13)
[2024-04-15] MEDS ORDERED: PANTOPRAZOLE 40 MG/10 ML VIAL ONE ×2 (10:26→21:12)
[2024-04-15] MEDS ORDERED: oxyCODONE-APAP 10-325MG 1 EACH TAB ONE ×3 (10:27→22:58)
[2024-04-15] MEDS ORDERED: HYDROmorphone 1 MG/ML 1 ML SYRINGE ONE ×4 (10:41→21:43)
[2024-04-15] MEDS ORDERED: diphenhydrAMINE 25 MG CAP ONE ×2 (13:12→21:13)
[2024-04-15] MEDS ORDERED: MONTELUKAST 10 MG TAB ONE (21:12)
[2024-04-15] MEDS ORDERED: TEMAZEPAM 7.5 MG CAP ONE (21:13)
[2024-04-15] MEDS ORDERED: traZODone HCL 50 MG TAB ONE (21:14)
[2024-04-15] MEDS ORDERED: IPRATROPIUM-ALBUTEROL 3 ML NEB ONE (23:59)
[2024-04-15] MEDS ORDERED: NICOTINE 7MG/24HR PATCH TRANSDERM ONE (23:59)
[2024-04-15] MEDS ORDERED: AMITRIPTYLINE HCL 50 MG TAB ONE (23:59)
[2024-04-16] MEDS ORDERED: HYDROmorphone 1 MG/ML 1 ML SYRINGE ONE ×4 (01:44→13:18)
[2024-04-16] MEDS ORDERED: diphenhydrAMINE 25 MG CAP ONE ×3 (05:17→12:31)
[2024-04-16] MEDS ORDERED: LEVOTHYROXINE 100 MCG TAB ONE (05:17)
[2024-04-16] MEDS ORDERED: PREGABALIN 100 MG CAP ONE ×2 (05:17→13:19)
[2024-04-16] MEDS ORDERED: oxyCODONE-APAP 10-325MG 1 EACH TAB ONE ×2 (05:35→12:21)
[2024-04-16] MEDS ORDERED: IPRATROPIUM-ALBUTEROL 3 ML NEB ONE (05:40)
[2024-04-16] MEDS ORDERED: methylPREDNISolone SOD SUCCI 125 MG/2 ML VIAL ONE ×2 (06:06→12:18)
[2024-04-16] MEDS ORDERED: INSULIN ASPART (NovoLOG) 100 UNIT/ML VIAL SQ ONE (06:06)
[2024-04-16] MEDS ORDERED: amLODIPine 5 MG TAB ONE (08:38)
[2024-04-16] MEDS ORDERED: PANTOPRAZOLE 40 MG/10 ML VIAL ONE (08:39)
[2024-04-16] MEDS ORDERED: APIXABAN 5 MG TAB ONE (08:48)
[2024-04-16] MEDS ORDERED: DULoxetine HCL 60 MG CAPSULE.DR PO ONE (08:48)
[2024-04-16] MEDS ORDERED: MORPHINE SULFATE IR 15 MG TABLET ONE (08:50)
--- NOTE | 2024-05-14 05:59 | XR ---
Site ID [facility] Karlos Hurd ID [id number] Order # Procedure XR CHEST 2 VIEWS EXAMINATION TYPE: XR chest 2V DATE OF EXAM: 04/10/2024 1:28 PM CLINICAL INDICATION: KAMILA and Cough COMPARISON: THIS EXAM WAS READ DURING PACS DOWNTIME, NO PRIORS AVAILABLE. TECHNIQUE: XR chest 2V Frontal view of the chest. FINDINGS: Lungs/Pleura: Scattered subtle reticular and hazy opacities. No evidence of pneumothorax, focal conso lidation or pleural effusion. Pulmonary vascularity: Unremarkable. Heart/mediastinum: Cardiomediastinal silhouette is unremarkable. Musculoskeletal: No acute osseous pathology. IMPRESSION: Subtle scattered opacities which may represent an atypical pneumonia. .
== END 2024-04-16 15:17 | disposition home or self-care (01) | DRG 189 ==
LOC: DISRECOVER 13:06
PROVIDERS: ADMIT Internal Medicine; ATTEND Internal Medicine
DX: J96.01 Acute respiratory failure with hypoxia (principal); J44.1 Chronic obstructive pulmonary disease with (acute) exacerbation; J45.901 Unspecified asthma with (acute) exacerbation; N39.0 Urinary tract infection, site not specified; E27.40 Unspecified adrenocortical insufficiency; E66.9 Obesity, unspecified; M79.7 Fibromyalgia; Z79.899 Other long term (current) drug therapy; F17.200 Nicotine dependence, unspecified, uncomplicated; B96.20 Unspecified Escherichia coli [E. coli] as the cause of diseases classified elsewhere; G35 Multiple sclerosis; E03.9 Hypothyroidism, unspecified; G89.29 Other chronic pain; M54.9 Dorsalgia, unspecified; R73.9 Hyperglycemia, unspecified; T38.0X5A Adverse effect of glucocorticoids and synthetic analogues, initial encounter; Z79.01 Long term (current) use of anticoagulants; Z86.718 Personal history of other venous thrombosis and embolism; Z79.890 Hormone replacement therapy
CPT/HCPCS: 71046; 87077; 87086; 87186; 94640; 94760; 96374; 96375; 99291

== ENCOUNTER 2024-04-23 15:00 | Inpatient (IN) | payer MEDICARE, OTHER ==
--- NOTE | 2024-04-23 15:42 | ED ---
General Adult HPI - General Chief complaint: Shortness of Breath Stated complaint: SOB Time Seen by Provider: 04/23/24 15:30 Source: patient, RN notes reviewed, old records reviewed Mode of arrival: EMS Limitations: no limitations - History of Present Illness Initial comments: 54-year-old female presenting with increased cough and dyspnea. Patient has h istory of asthma COPD. She was recently admitted to this hospital but is uncertain exactly what day she was discharged. She was discharged on home oxygen which is new for this patient. She has had subjective fever, generalized chest pain which is worse with cough. Denies lower extremity pain or swelling. Patient is in respiratory distress upon arrival, hypoxic. - Related Data Home Medications Medication Instructions Recorded Confirmed DULoxetine HCL [Cymbalta] 60 mg PO BID 04/01/19 04/23/24 traZODone HCL 100 mg PO HS 12/03/19 04/23/24 Apixaban [Eliquis] 5 mg PO BID 12/17/19 04/23/24 Hydrocortisone [Cortef] 30 mg PO DAILY 10/07/20 04/23/24 Morphine Sulfate ER [Ms Contin] 15 mg PO Q12H 10/07/20 04/23/24 Hydrocortisone [Cortef] 10 mg PO HS 04/26/21 04/23/24 Albuterol Sulfate [Proair Hfa] 2 puff INHALATION RT-Q6H PRN 05/05/22 04/23/24 Amitriptyline HCl [Elavil] 100 mg PO HS 05/05/22 04/23/24 Ergocalciferol [Vitamin D2 (1250 1,250 mcg PO FR 05/05/22 04/23/24 Mcg = 56723 Iu)] Omeprazole 20 mg PO DAILY 05/05/22 04/23/24 buPROPion XL [Wellbutrin XL] 300 mg PO DAILY 05/05/22 04/23/24 Levothyroxine Sodium [Synthroid] 100 mcg PO DAILY 05/31/23 04/23/24 Pregabalin [Lyrica] 200 mg PO TID 05/31/23 04/23/24 oxyCODONE-APAP 10-325MG [Percocet 1 tab PO Q6H PRN 05/31/23 04/23/24 10-325 mg] ondansetron HCL [Zofran] 8 mg PO Q8HR PRN 07/03/23 04/23/24 Celecoxib [CeleBREX] 200 mg PO DAILY 04/23/24 04/23/24 Cyclobenzaprine [Flexeril] 5 mg PO BID 04/23/24 04/23/24 Dextroamphetamine/Amphetamine 15 mg PO BID 04/23/24 04/23/24 [Adderall] Fluticasone Propion/Salmeterol 1 inhalation PO RT-BID 04/23/24 04/23/24 [Advair 250-50 Diskus] Montelukast [Singulair] 10 mg PO DAILY 04/23/24 04/23/24 Ocrelizumab [Ocrevus] 600 mg IV Q180D 04/23/24 04/23/24 Semaglutide [Ozempic] 2 mg SQ FR 04/23/24 04/23/24 Allergies Allergy/AdvReac Type Severity Reaction Status Date / Time amoxicillin [From Augmentin] Allergy Diarrhea, Verified 04/23/24 16:54 hives clavulanic acid Allergy Diarrhea, Verified 04/23/24 16:54 [From Augmentin] hives doxycycline Allergy Rash/Hives Verified 04/23/24 16:54 glatiramer (copolymer 1) Allergy Rapid Verified 04/23/24 16:54 [From Copaxone] Heart Rate,hives, skin flushing sulfamethoxazole Allergy blisters Verified 04/23/24 16:54 [From Bactrim] in mouth, rash/hives trimethoprim [From Bactrim] Allergy blisters Verified 04/23/24 16:54 in mouth, rash/hives steroids AdvReac genital Uncoded 04/23/24 16:54 burning & rashes but still takes steroids. Review of Systems ROS Statement: Those systems with pertinent positive or pertinent negative responses have been documented in the HPI. ROS Other: All systems not noted in ROS Statement are negative. Past Medical History Past Medical History: Asthma, Blood Disorder, Heart Failure, COPD, Deep Vein Thrombosis (DVT), Eye Disorder, Fibromyalgia, GERD/Reflux, Hearing Disorder / Deafness, Hyperlipidemia, Memory Impairment, Musculoskeletal Disorder, Neurologic Disorder, Osteoarthritis (OA), Pneumonia, Renal Disease, Skin Disorder, Sleep Apnea/CPAP/BIPAP, Syncope, Thyroid Disorder Additional Past Medical History / Comment(s): Multiple sclerosis, factor 5 leiden, RUBI-no device, DVT L leg 2013, hiatal hernia, hoarseness/leukoplakia, adrenal insufficiency/chronic steroid use/pituitary tumor, migraines, DJD, chronic back pain, bursitis, optic neuritis bilaterally, glaucoma , tinnitis, rosacea, insomnia, hypersomnia. bilat CTS, peripheral neuropathy, vertigo. hx infection at back surgery site. History of Any Multi-Drug Resistant Organisms: ESBL Date of last positivie culture/infection: 10/01/23 ESBL MDRO Source:: Urine Past Surgical History: Back Surgery, Bladder Surgery, Section, Cholecystectomy, Tubal Ligation Additional Past Surgical History / Comment(s): 09/24/18 bladder stimulator, redone 09/2020. 02/05/19 microlarygoscopy/bx, vocal cord polypectomies, cervical bx, bladder suspension, EGD with bx, colonoscopy,. Laminectomy w/ decompression (01/09/20), Drainage of seroma back (02/02/20), removal spinal hardware, I&D back wound,. PICC line. Past Anesthesia/Blood Transfusion Reactions: Motion Sickness Additional Past Anesthesia/Blood Transfusion Reaction / Comment(s): occasional bad headaches. Past Psychological History: ADD/ADHD, Anxiety, Depression Smoking Status: Current every day smoker Past Alcohol Use History: None Reported Past Drug Use History: None Reported - Past Family History Brother(s) Family Medical History: Deep Vein Thrombosis (DVT) Father Family Medical History: Deep Vein Thrombosis (DVT) Additional Family Medical History / Comment(s): Patient states that her father has no cardiac history but his father had previous IA's. Mother Family Medical History: Cancer, Deep Vein Thrombosis (DVT), Pulmonary Embolus Additional Family Medical History / Comment(s): Cervical cancer. General Exam Limitations: no limitations General appearance: alert, in distress Head exam: Present: atraumatic, normocephalic Eye exam: Present: normal appearance, PERRL ENT exam: Present: normal exam Neck exam: Present: normal inspection. Absent: tenderness, meningismus Respiratory exam: Present: respiratory distress, wheezes, rhonchi, accessory muscle use, decreased breath sounds Cardiovascular Exam: Present: normal rhythm, tachycardia GI/Abdominal exam: Present: soft. Absent: distended, tenderness, guarding Extremities exam: Present: normal inspection, normal capillary refill Neurological exam: Present: alert, oriented X3, CN II-XII intact. Absent: motor sensory deficit Psychiatric exam: Present: normal affect, normal mood Skin exam: Present: warm, dry, intact. Absent: cyanosis, diaphoretic Course Vital Signs 04/23/24 04/23/24 04/23/24 15:25 15:37 16:02 Temperature 98.7 F Pulse Rate 131 H 124 H Respiratory 18 22 Rate Blood Pressure 79/56 130/93 O2 Sat by Pulse 88 L 90 L Oximetry Fraction of 50 Inspired Oxygen (FIO2) 04/23/24 04/23/24 16:04 16:34 Temperature Pulse Rate 129 H 108 H Respiratory 37 H 24 Rate Blood Pressure O2 Sat by Pulse Oximetry Fraction of Inspired Oxygen (FIO2) Medical Decision Making - Medical Decision Making Was pt. sent in by a medical professional or institution (, PA, ORDER CLERK, urgent care, hospital, or prison...) When possible be specific @ -No Did you speak to anyone other than the patient for history (EMS, parent, family, police, friend...)? What history was obtained from this source @ -No Did you review nursing and triage notes (agree or disagree)? Why? @ -I reviewed and agree with nursing and triage notes Were old charts reviewed (outside hosp., previous admission, EMS record, old EKG, old radiological studies, urgent care reports/EKG's, prison records)? Report findings @ -No old charts were reviewed Differential Diagnosis (chest pain, altered mental status, abdominal pain women, abdominal pain men, vaginal bleeding, weakness, fever, dyspnea, syncope, headache, dizziness, GI bleed, back pain, seizure, CVA, palpatations, mental health, musculoskeletal)? @ -Not applicable EKG interpreted by me (3pts min.). @ -Sinus tachycardia rate of 127 WI interval 142, QRS duration 83, QTc [address] segment elevation. X-rays interpreted by me (1pt min.). @ -Chest x-ray showing concern for developing pneumonia, no pneumothorax CT interpreted by me (1pt min.). @ -None done U/S interpreted by me (1pt. min.). @ -None done What testing was considered but not performed or refused? (CT, X-rays, U/S, labs)? Why? @ -None What meds were considered but not given or refused? Why? @ -None Did you discuss the management of the patient with other professionals (professionals i.e. DrMayra, PA, ORDER CLERK, lab, RT, psych nurse, social worker clinical, full time, teacher, credit administration officer, medical case worker)? Give summary @Discussed with Dr. Palomino who will admit Was smoking cessation discussed for >3mins.? @ -No Was critical care preformed (if so, how long)? @ -Yes, 35 minutes Were there social determinants of health that impacted care today? How? (Homelessness, low income, unemployed, alcoholism, drug addiction, transporta tion, low edu. Level, literacy, decrease access to med. care, long-term, rehab)? @ -No Was there de-escalation of care discussed even if they declined (Discuss DNR or withdrawal of care, Hospice)? DNR status @ -No What co-morbidities impacted this encounter? (DM, HTN, Smoking, COPD, CAD, Cancer, CVA, ARF, Chemo, Hep., AIDS, mental health diagnosis, sleep apnea, morbid obesity)? @ -COPD, CHF, fibromyalgia Was patient admitted / discharged? Hospital course, mention meds given and route, prescriptions, significant lab abnormalities, going to OR and other pertinent info. @54-year-old female oxygen dependent COPD presenting with dyspnea, hypoxia, tachycardia. Patient is an extremis upon arrival, rhonchi and wheezing bilaterally. Patient given albuterol, Atrovent, steroids, started on IV antibio tics. She is placed on BiPAP for respiratory support. She does significantly improve while in the emergency department. She has a elevated leukocytosis. Blood cultures are pending. Antibiotics have been initiated. She will be admitted for treatment of both COPD and pneumonia. Pulmonology placed on consult. Undiagnosed new problem with uncertain prognosis? @ -No Drug Therapy requiring intensive monitoring for toxicity (Heparin, Nitro, Insulin, Cardizem)? @ -No Were any procedures done? @ -No Diagnosis/symptom? @ -COPD, pneumonia, respiratory failure Acute, or Chronic, or Acute on Chronic? @Acute on chronic Uncomplicated (without systemic symptoms) or Complicated (systemic symptoms)? @ -Default Side effects of treatment? @ -No Exacerbation, Progression, or Severe Exacerbation? @ -No Poses a threat to life or bodily function? How? (Chest pain, USA, IA, pneumonia, PE, COPD, DKA, ARF, appy, cholecystitis, CVA, Diverticulitis, Homicidal, Suicidal, threat to staff... and all critical care pts) @ -Yes, respiratory failure - Lab Data Result diagrams: 04/23/24 15:48 04/23/24 15:48 Lab Results 04/23/24 04/23/24 04/23/24 Range/Units 15:48 15:48 15:48 WBC 26.1 H (3.8-10.6) k/uL RBC 6.33 H (3.80-5.40) m/uL Hgb 15.3 (11.4-16.0) gm/dL Hct 47.6 H (34.0-46.0) % MCV 75.2 L (80.0-100.0) fL MCH 24.1 L (25.0-35.0) pg MCHC 32.1 (31.0-37.0) g/dL RDW 18.3 H (11.5-15.5) % Plt Count 405 (150-450) k/uL MPV 6.9 Neutrophils % 85 % Lymphocytes % 9 % Monocytes % 4 % Eosinophils % 1 % Basophils % 0 % Neutrophils # 22.2 H (1.3-7.7) k/uL Lymphocytes # 2.3 (1.0-4.8) k/uL Monocytes # 1.1 H (0-1.0) k/uL Eosinophils # 0.3 (0-0.7) k/uL Basophils # 0.1 (0-0.2) k/uL Hypochromasia Moderate Anisocytosis Slight Microcytosis Moderate PT 10.4 (10.0-12.5) sec INR 0.9 (<1.2) APTT 25.4 (22.0-30.0) sec Sodium 130 L (137-145) mmol/L Potassium 4.0 (3.5-5.1) mmol/L Chloride 93 L (98-107) mmol/L Carbon Dioxide 29 (22-30) mmol/L Anion Gap 8 mmol/L BUN 18 H (7-17) mg/dL Creatinine 0.98 (0.52-1.04) mg/dL Est GFR (CKD-EPI)AfAm 76 (>60 ml/min/1.73 sqM) Est GFR (CKD-EPI)NonAf 66 (>60 ml/min/1.73 sqM) Glucose 153 H (74-99) mg/dL Plasma Lactic Acid Jasbir (0.7-2.0) mmol/L Calcium 9.2 (8.4-10.2) mg/dL Magnesium 1.9 (1.6-2.3) mg/dL Total Bilirubin 0.8 (0.2-1.3) mg/dL AST 26 (14-36) U/L ALT 21 (4-34) U/L Alkaline Phosphatase 114 (38-126) U/L Troponin I (0.000-0.034) ng/mL NT-Pro-B Natriuret Pep 325 pg/mL Total Protein 6.4 (6.3-8.2) g/dL Albumin 3.9 (3.5-5.0) g/dL 04/23/24 04/23/24 Range/Units 15:48 15:48 WBC (3.8-10.6) k/uL RBC (3.80-5.40) m/uL Hgb (11.4-16.0) gm/dL Hct (34.0-46.0) % MCV (80.0-100.0) fL MCH (25.0-35.0) pg MCHC (31.0-37.0) g/dL RDW (11.5-15.5) % Plt Count (150-450) k/uL MPV Neutrophils % % Lymphocytes % % Monocytes % % Eosinophils % % Basophils % % Neutrophils # (1.3-7.7) k/uL Lymphocytes # (1.0-4.8) k/uL Monocytes # (0-1.0) k/uL Eosinophils # (0-0.7) k/uL Basophils # (0-0.2) k/uL Hypochromasia Anisocytosis Microcytosis PT (10.0-12.5) sec INR (<1.2) APTT (22.0-30.0) sec Sodium (137-145) mmol/L Potassium (3.5-5.1) mmol/L Chloride (98-107) mmol/L Carbon Dioxide (22-30) mmol/L Anion Gap mmol/L BUN (7-17) mg/dL Creatinine (0.52-1.04) mg/dL Est GFR (CKD-EPI)AfAm (>60 ml/min/1.73 sqM) Est GFR (CKD-EPI)NonAf (>60 ml/min/1.73 sqM) Glucose (74-99) mg/dL Plasma Lactic Acid Jasbir 2.0 (0.7-2.0) mmol/L Calcium (8.4-10.2) mg/dL Magnesium (1.6-2.3) mg/dL Total Bilirubin (0.2-1.3) mg/dL AST (14-36) U/L ALT (4-34) U/L Alkaline Phosphatase (38-126) U/L Troponin I <0.012 (0.000-0.034) ng/mL NT-Pro-B Natriuret Pep pg/mL Total Protein (6.3-8.2) g/dL Albumin (3.5-5.0) g/dL Critical Care Time Critical Care Time: Yes Total Critical Care Time: 35 Disposition Clinical Impression: Acute exacerbation of chronic obstructive airways disease, COPD (chronic obstructive pulmonary disease), Community acquired pneumonia Disposition: ADMITTED IP TO THIS HOSP Condition: Serious Is patient prescribed a controlled substance at d/c from ED?: No Referrals: None,Stated [REFERRING] - 1-2 days Time of Disposition: 18:25
[2024-04-23] MEDS: KETOROLAC 15 MG/ML 1 ML VIAL IVP STA (16:04)
[2024-04-23] MEDS: ALBUTEROL NEBULIZED 2.5 MG/3 ML INHALATION STA (16:04)
[2024-04-23] MEDS: IPRATROPIUM 0.5 MG/2.5 ML NEBU INHALATION STA (16:04)
[2024-04-23] MEDS: methylPREDNISolone SOD SUCCI 125 MG/2 ML VIAL IV STA (16:04)
[2024-04-23] MEDS: SODIUM CHLORIDE 0.9% 500 ML 500 ML IV STA (16:05)
[2024-04-23 16:07] LABS: Anisocytosis Slight; Basophils # (A) 0.1 k/uL (0-0.2); Basophils % (A) 0 %; Eosinophils # (A) 0.3 k/uL (0-0.7); Eosinophils % (A) 1 %; HCT 47.6 % (34.0-46.0); HGB 15.3 gm/dL (11.4-16.0); Hypochromasia Moderate; Lymphocytes # (A) 2.3 k/uL (1.0-4.8); Lymphocytes % (A) 9 %; MCH 24.1 pg (25.0-35.0); MCHC 32.1 g/dL (31.0-37.0); MCV 75.2 fL (80.0-100.0); Mean Platelet Volume 6.9; Microcytosis Moderate; Monocytes # (A) 1.1 k/uL (0-1.0); Monocytes % (A) 4 %; Neutrophils # (A) 22.2 k/uL (1.3-7.7); Neutrophils % (A) 85 %; Platelet Count 405 k/uL (150-450); RBC 6.33 m/uL (3.80-5.40); RDW 18.3 % (11.5-15.5); WBC 26.1 k/uL (3.8-10.6)
[2024-04-23 16:12] LABS: INR 0.9 (<1.2); Partial Thromboplastin Time 25.4 sec (22.0-30.0); Prothrombin Time 10.4 sec (10.0-12.5)
[2024-04-23] MEDS: diphenhydrAMINE 50 MG/ML 1 ML VIAL IVP STA (16:12)
[2024-04-23] MEDS: MAGNESIUM SULFATE-D5W PMX 1 GM in DEXTROSE/WATER 1 100ML.BAG IVPB STA (16:14)
[2024-04-23 16:23] LABS: ALT 21 U/L (4-34); AST 26 U/L (14-36); African American GFR (CKD) 76 (>60 ml/min/1.73 sqM); Albumin 3.9 g/dL (3.5-5.0); Alkaline Phosphatase 114 U/L (38-126); Anion Gap 8 mmol/L; Blood Urea Nitrogen 18 mg/dL (7-17); Calcium 9.2 mg/dL (8.4-10.2); Carbon Dioxide 29 mmol/L (22-30); Chloride 93 mmol/L (98-107); Glucose 153 mg/dL (74-99); Magnesium 1.9 mg/dL (1.6-2.3); Non-African American GFR(CKD) 66 (>60 ml/min/1.73 sqM); Sodium 130 mmol/L (137-145); Total Bilirubin 0.8 mg/dL (0.2-1.3); Total Protein 6.4 g/dL (6.3-8.2)
[2024-04-23 16:31] LABS: NT-Pro-B-Type Natriuretic Pept 325 pg/mL
[2024-04-23] MEDS: AZITHROMYCIN 500 MG in SODIUM CHLORIDE 0.9% 250 ML IVPB STA (17:16)
[2024-04-23] MEDS: SODIUM CHLORIDE 0.9% 1,000 ML IV SCH (17:16)
--- NOTE | 2024-04-23 17:49 | XR ---
EXAMINATION TYPE: XR chest 1V portable DATE OF EXAM: 04/23/2024 COMPARISON: 11/20/2023 INDICATION: Difficulty breathing TECHNIQUE: Single frontal view of the chest is obtained. FINDINGS: The heart size is normal. The pulmonary vasculature is normal. Mild diffuse bibasilar infiltrates are present. Early for bibasilar Atelectasis. Developing pneumoni a should be considered. IMPRESSION: 1. Right basilar infiltrates. Follow-up can be performed
[2024-04-23] MEDS ORDERED: IPRATROPIUM-ALBUTEROL 3 ML NEB INHALATION PRN (18:22)
[2024-04-23] MEDS ORDERED: NALOXONE 0.4 MG/ML 1 ML VIAL IVP PRN (18:22)
[2024-04-23] MEDS: CEFEPIME 2 GM in SODIUM CHLORIDE 0.9% 100 ML IVPB SCH (18:43)
[2024-04-23] MEDS: IPRATROPIUM-ALBUTEROL 3 ML NEB INHALATION SCH (19:42)
[2024-04-23] MEDS: PREGABALIN 100 MG CAP PO SCH (19:46)
[2024-04-23] MEDS: CYCLOBENZAPRINE 5 MG TAB PO SCH (19:46)
[2024-04-23] MEDS: oxyCODONE-APAP 10-325MG 1 EACH TAB PO PRN (19:46)
[2024-04-24] MEDS: methylPREDNISolone SOD SUCCI 125 MG/2 ML VIAL IV SCH (05:00)
[2024-04-24] MEDS: MORPHINE SULFATE ER 15 MG TABLET PO SCH (05:00)
--- NOTE | 2024-04-24 05:29 | P.CNPUL ---
History of Present Illness Consult date: 04/24/24 Requesting physician: Don Agee Reason for consult: COPD, pneumonia Chief complaint: Shortness of breath and cough History of present illness: Patient is a 54-year-old white female with past medical history significant for asthma/COPD, DVT, factor V Leyden, hyperlipidemia, hypothyroidism, among other things. 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 Of note, patient states that she was recently discharged from the hospital and treated for COPD. She was treated with antibiotics during this hospitalization. Discharged with oxygen approximately 1 week ago. Patient returned to the emergency department yesterday evening in respiratory distress. She was hypoxic and initially placed on BiPAP with settings 10/5 and FiO2 50%. Currently, she remains in the emergency department, in no apparent distress at this time. On 5 L/min nasal cannula. SpO2 92%. Over the last week she has progressively become more short of breath. She has had subjective fevers, productive cough with yellow to green sputum production. Cough is persistent and she has some chest soreness associated with coughing and deep breathing. Denies hemoptysis. She has had reduced appetite and nausea. No actual vomiting, abdominal pain, diarrhea. Chest x-ray showing mild bibasilar infiltrates. CBC: WBC count 26.1, hemoglobin 15.3, hematocrit 47.6, platelets 405. CMP: Sodium 130, potassium 4, chloride 9 3, serum bicarb 29, BUN 18, creatinine 0.98, glucose 153. LFTs unremarkable. Troponin less than 0.012. NT proBNP 325. EKG showing sinus tachycardia with nonspecific T wave abnormalities. Denies missing any doses of Eliquis. Negative for influenza, RSV, COVID. Currently covered on a combination of azithromycin and cefepime. Currently afebrile. She is waiting for a bed on the stepdown unit. Review of Systems REVIEW OF SYSTEMS: CONSTITUTIONAL: Denies any recent significant weight loss or weight gain. EYES: Denies change in vision. EARS, NOSE, MOUTH, THROAT: Denies headaches, denies sore throat. CARDIOVASCULAR: Denies chest pain, palpitations or syncopal episodes. RESPIRATORY: See HPI GASTROINTESTINAL: See HPI GENITOURINARY: Denies hematuria, denies infections. MUSKULOSKELETAL: Denies pain, denies swelling. INTEGUMENTARY: Denies rash, denies eczema. NEUROLOGICAL: Denies recent memory loss, no recent seizure activity. PSYCHIATRIC: Denies anxiety, denies depression. HEMATOLOGIC/LYMPHATIC: Denies anemia, denies enlarged lymph node Past Medical History Past Medical History: Asthma, Blood Disorder, Heart Failure, COPD, Deep Vein Thrombosis (DVT), Eye Disorder, Fibromyalgia, GERD/Reflux, Hearing Disorder / Deafness, Hyperlipidemia, Memory Impairment, Musculoskeletal Disorder, Neurologic Disorder, Osteoarthritis (OA), Pneumonia, Renal Disease, Skin Disorder, Sleep Apnea/CPAP/BIPAP, Syncope, Thyroid Disorder Additional Past Medical History / Comment(s): Multiple sclerosis, factor 5 le iden, RUBI-no device, DVT L leg 2013, hiatal hernia, hoarseness/leukoplakia, adrenal insufficiency/chronic steroid use/pituitary tumor, migraines, DJD, chronic back pain, bursitis, optic neuritis bilaterally, glaucoma , tinnitis, rosacea, insomnia, hypersomnia. bilat CTS, peripheral neuropathy, vertigo. hx infection at back surgery site. History of Any Multi-Drug Resistant Organisms: ESBL Date of last positivie culture/infection: 10/01/23 ESBL MDRO Source:: Urine Past Surgical History: Back Surgery, Bladder Surgery, Section, Cholecystectomy, Tubal Ligation Additional Past Surgical History / Comment(s): 09/24/18 bladder stimulator, redone 09/2020. 02/05/19 microlarygoscopy/bx, vocal cord polypectomies, cervical bx, bladder suspension, EGD with bx, colonoscopy,. Laminectomy w/ decompression (01/09/20), Drainage of seroma back (02/02/20), removal spinal hardware, I&D back wound,. PICC line. Past Anesthesia/Blood Transfusion Reactions: Motion Sickness Additional Past Anesthesia/Blood Transfusion Reaction / Comment(s): occasional bad headaches. Past Psychological History: ADD/ADHD, Anxiety, Depression Smoking Status: Current every day smoker Past Alcohol Use History: None Reported Past Drug Use History: None Reported - Past Family History Brother(s) Family Medical History: Deep Vein Thrombosis (DVT) Father Family Medical History: Deep Vein Thrombosis (DVT) Additional Family Medical History / Comment(s): Patient states that her father has no cardiac history but his father had previous PA's. Mother Family Medical History: Cancer, Deep Vein Thrombosis (DVT), Pulmonary Embolus Additional Family Medical History / Comment(s): Cervical cancer. Medications and Allergies Home Medications Medication Instructions Recorded Confirmed Type DULoxetine HCL [Cymbalta] 60 mg PO BID 04/01/19 04/23/24 History traZODone HCL 100 mg PO HS 12/03/19 04/23/24 History Apixaban [Eliquis] 5 mg PO BID 12/17/19 04/23/24 History Hydrocortisone [Cortef] 30 mg PO DAILY 10/07/20 04/23/24 History Morphine Sulfate ER [Ms Contin] 15 mg PO Q12H 10/07/20 04/23/24 History Hydrocortisone [Cortef] 10 mg PO HS 04/26/21 04/23/24 History Albuterol Sulfate [Proair Hfa] 2 puff INHALATION RT-Q6H PRN 05/05/22 04/23/24 History Amitriptyline HCl [Elavil] 100 mg PO HS 05/05/22 04/23/24 History Ergocalciferol [Vitamin D2 (1250 1,250 mcg PO FR 05/05/22 04/23/24 History Mcg = 31453 Iu)] Omeprazole 20 mg PO DAILY 05/05/22 04/23/24 History buPROPion XL [Wellbutrin XL] 300 mg PO DAILY 05/05/22 04/23/24 History Levothyroxine Sodium [Synthroid] 100 mcg PO DAILY 05/31/23 04/23/24 History Pregabalin [Lyrica] 200 mg PO TID 05/31/23 04/23/24 History oxyCODONE-APAP 10-325MG [Percocet 1 tab PO Q6H PRN 05/31/23 04/23/24 History 10-325 mg] ondansetron HCL [Zofran] 8 mg PO Q8HR PRN 07/03/23 04/23/24 History Celecoxib [CeleBREX] 200 mg PO DAILY 04/23/24 04/23/24 History Cyclobenzaprine [Flexeril] 5 mg PO BID 04/23/24 04/23/24 History Dextroamphetamine/Amphetamine 15 mg PO BID 04/23/24 04/23/24 History [Adderall] Fluticasone Propion/Salmeterol 1 inhalation PO RT-BID 04/23/24 04/23/24 History [Advair 250-50 Diskus] Montelukast [Singulair] 10 mg PO DAILY 04/23/24 04/23/24 History Ocrelizumab [Ocrevus] 600 mg IV Q180D 04/23/24 04/23/24 History Semaglutide [Ozempic] 2 mg SQ FR 04/23/24 04/23/24 History Allergies Allergy/AdvReac Type Severity Reaction Status Date / Time amoxicillin [From Augmentin] Allergy Diarrhea, Verified 04/23/24 16:54 hives clavulanic acid Allergy Diarrhea, Verified 04/23/24 16:54 [From Augmentin] hives doxycycline Allergy Rash/Hives Verified 04/23/24 16:54 glatiramer (copolymer 1) Allergy Rapid Verified 04/23/24 16:54 [From Copaxone] Heart Rate,hives, skin flushing sulfamethoxazole Allergy blisters Verified 04/23/24 16:54 [From Bactrim] in mouth, rash/hives trimethoprim [From Bactrim] Allergy blisters Verified 04/23/24 16:54 in mouth, rash/hives steroids AdvReac genital Uncoded 04/23/24 16:54 burning & rashes but still takes steroids. Physical Exam Vitals: Vital Signs Temp Pulse Resp BP Pulse Ox FiO2 04/23/24 19:53 106 H 18 04/23/24 19:43 108 H 21 50 04/23/24 18:33 105 H 18 112/83 97 04/23/24 16:34 108 H 24 04/23/24 16:04 129 H 37 H 04/23/24 16:02 50 04/23/24 15:37 124 H 22 130/93 90 L 04/23/24 15:25 98.7 F 131 H 18 79/56 88 L Intake and Output 04/23/24 04/23/24 04/24/24 14:59 22:59 06:59 Other: Weight 104.326 kg GENERAL EXAM: Alert, 54-year-old white female, comfortable in no apparent respiratory distress. HEAD: Normocephalic and atraumatic EYES: Normal reaction of pupils, equal size. NOSE: Clear with pink turbinates. THROAT: No erythema or exudates. NECK: No masses, no JVD. CHEST: No chest wall deformity. LUNGS: Equal air entry with faint expiratory wheezes and minimal bibasilar inspiratory crackles. On 5 L/min nasal cannula. No conversational dyspnea or accessory muscle use.. CVS: S1 and S2 normal with no audible murmur, regular rhythm. No extra heart sounds ABDOMEN: No hepatosplenomegaly, active bowel sounds, no guarding or rigidity. SPINE: No scoliosis or deformity SKIN: No rashes CENTRAL NERVOUS SYSTEM: No focal deficits, tone is normal in all 4 extremities. EXTREMITIES: There is no peripheral edema, clubbing, or cyanosis. Peripheral pulses are intact. Results - Laboratory Findings CBC and BMP: 04/23/24 15:48 04/23/24 15:48 PT/INR, D-dimer PT 10.4 sec (10.0-12.5) 04/23/24 15:48 INR 0.9 (<1.2) 04/23/24 15:48 Abnormal lab findings: Abnormal Labs 04/23/24 04/23/24 15:48 15:48 WBC 26.1 H RBC 6.33 H Hct 47.6 H MCV 75.2 L MCH 24.1 L RDW 18.3 H Neutrophils # 22.2 H Monocytes # 1.1 H Sodium 130 L Chloride 93 L BUN 18 H Glucose 153 H - Diagnostic Findings Chest x-ray: image reviewed Assessment and Plan Assessment: Acute COPD/asthma exacerbation, secondary to suspected bilateral healthcare associated pneumonia. Chest x-ray showing bibasilar infiltrates. There is hyperinflation consistent with COPD. Acute hypoxemic respiratory failure, currently on 5 L/min nasal cannula Acute leukocytosis History of DVT History of factor V Leyden History of multiple sclerosis Chronic pain Chronic ongoing tobacco dependence Plan: Patient's medications, labs, imaging reviewed Continue supplemental oxygen to maintain oxygen saturation of 92% or greater Continue combination of DuoNebs [id number], Symbicort inhaler, and IV Solu-Medrol Continue empiric antibiotics, which were initiated in the emergency department Procalcitonin level pending Negative for COVID, RSV, influenza A/B Smoking cessation counseling performed greater than 10 minutes. Nicotine patch offered. Resume Eliquis We will continue to follow I have personally seen and examined the patient, performed the documentation and the assessment and plan as written. Number of minutes spent on the visit:20 Time with Patient: Greater than 30
[2024-04-24] MEDS: diphenhydrAMINE 50 MG/ML 1 ML VIAL IVP STA (08:28)
[2024-04-24] MEDS: APIXABAN 5 MG TAB PO SCH (08:29)
[2024-04-24] MEDS: SYMBICORT 160-4.5 MCG INHALER INHALATION SCH (08:30)
[2024-04-24] MEDS: AZITHROMYCIN 500 MG in SODIUM CHLORIDE 0.9% 250 ML IVPB SCH (08:34)
[2024-04-24] MEDS ORDERED: DEXTROSE 50% SYRINGE 50 ML IVP PRN ×2 (08:54)
[2024-04-24] MEDS ORDERED: NON FORMULARY DRUG (Pregabalin [Lyrica] 200 MG Capsule) PO SCH (09:00)
[2024-04-24] MEDS: PANTOPRAZOLE 40 MG/10 ML VIAL IVP SCH (10:17)
[2024-04-24] MEDS: buPROPion XL 300 MG TAB.ER.24H PO SCH (10:17)
[2024-04-24] MEDS: LEVOTHYROXINE 100 MCG TAB PO SCH (11:25)
[2024-04-24 12:00] LABS: Glucose,Whole Blood 160 mg/dL (70-110)
[2024-04-24] MEDS: INSULIN ASPART (NovoLOG) 100 UNIT/ML VIAL SQ SCH ×2 (12:27→20:44)
[2024-04-24] MEDS: diphenhydrAMINE 50 MG/ML 1 ML VIAL IVP SCH (12:28)
--- NOTE | 2024-04-24 15:00 | P.HPIM ---
History of Present Illness H&P Date: 04/24/24 Chief Complaint: Progressive shortness of breath This is a 54-year-old female with past medical history significant for COPD, DVT, factor V Leiden, hypothyroidism ,recurrent UTI with ESBL, MS, chronic back pain, laminectomy/decompression, fibromyalgia gastroesophageal reflux disease, recently discharged on 04/20/2024 with similar presentation presented to the ER with complaints of progressive shortness of breath, productive cough with yellow sputum, body aches, congestion and fevers. States she did not actually take her temperature. Reports she follows with Dr. Moreno outpatient, pulmonology.Viral studies negative. Chest x-ray reporting right basilar infilt rates, early for bibasilar atelectasis. Procalcitonin pending. On admission afebrile, tachycardic, hypoxic requiring up to 5 L nasal cannula, weaned down to 3 L currently, maintaining O2 sats in the 90s. WBC 26.1, hemoglobin 15.3, platelets 405, INR 0.9, sodium 130, potassium 4, bicarb 29, BUN 18, creatinine 0.98, glucose 153, lactic acid 2, magnesium 1.9, troponins negative x 1, proBNP 325. Review of Systems ROS Statement: Those systems with pertinent positive or pertinent negative responses have been documented in the HPI. ROS Other: All systems not noted in ROS Statement are negative. Past Medical History Past Medical History: Asthma, Blood Disorder, Heart Failure, COPD, Deep Vein Thrombosis (DVT), Eye Disorder, Fibromyalgia, GERD/Reflux, Hearing Disorder / Deafness, Hyperlipidemia, Memory Impairment, Musculoskeletal Disorder, Neurologic Disorder, Osteoarthritis (OA), Pneumonia, Renal Disease, Skin Disorder, Sleep Apnea/CPAP/BIPAP, Syncope, Thyroid Disorder Additional Past Medical History / Comment(s): Multiple sclerosis, factor 5 leiden, RUBI-no device, DVT L leg 2013, hiatal hernia, hoarseness/leukoplakia, adrenal insufficiency/chronic steroid use/pituitary tumor, migraines, DJD, chronic back pain, bursitis, optic neuritis bilaterally, glaucoma , tinnitis, rosacea, insomnia, hypersomnia. bilat CTS, peripheral neuropathy, vertigo. hx infection at back surgery site. History of Any Multi-Drug Resistant Organisms: ESBL Date of last positivie culture/infection: 10/01/23 ESBL MDRO Source:: Urine Past Surgical History: Back Surgery, Bladder Surgery, Section, Cholecystectomy, Tubal Ligation Additional Past Surgical History / Comment(s): 09/24/18 bladder stimulator, redone 09/2020. 02/05/19 microlarygoscopy/bx, vocal cord polypectomies, cervical bx, bladder suspension, EGD with bx, colonoscopy,. Laminectomy w/ decompression (01/09/20), Drainage of seroma back (02/02/20), removal spinal hardware, I&D back wound,. PICC line. Past Anesthesia/Blood Transfusion Reactions: Motion Sickness Additional Past Anesthesia/Blood Transfusion Reaction / Comment(s): occasional bad headaches. Past Psychological History: ADD/ADHD, Anxiety, Depression Smoking Status: Current every day smoker Past Alcohol Use History: None Reported Past Drug Use History: None Reported - Past Family History Brother(s) Family Medical History: Deep Vein Thrombosis (DVT) Father Family Medical History: Deep Vein Thrombosis (DVT) Additional Family Medical History / Comment(s): Patient states that her father has no cardiac history but his father had previous RI's. Mother Family Medical History: Cancer, Deep Vein Thrombosis (DVT), Pulmonary Embolus Additional Family Medical History / Comment(s): Cervical cancer. Medications and Allergies Home Medications Medication Instructions Recorded Confirmed Type DULoxetine HCL [Cymbalta] 60 mg PO BID 04/01/19 04/23/24 History traZODone HCL 100 mg PO HS 12/03/19 04/23/24 History Apixaban [Eliquis] 5 mg PO BID 12/17/19 04/23/24 History Hydrocortisone [Cortef] 30 mg PO DAILY 10/07/20 04/23/24 History Morphine Sulfate ER [Ms Contin] 15 mg PO Q12H 10/07/20 04/23/24 History Hydrocortisone [Cortef] 10 mg PO HS 04/26/21 04/23/24 History Albuterol Sulfate [Proair Hfa] 2 puff INHALATION RT-Q6H PRN 05/05/22 04/23/24 History Amitriptyline HCl [Elavil] 100 mg PO HS 05/05/22 04/23/24 History Ergocalciferol [Vitamin D2 (1250 1,250 mcg PO FR 05/05/22 04/23/24 History Mcg = 13718 Iu)] Omeprazole 20 mg PO DAILY 05/05/22 04/23/24 History buPROPion XL [Wellbutrin XL] 300 mg PO DAILY 05/05/22 04/23/24 History Levothyroxine Sodium [Synthroid] 100 mcg PO DAILY 05/31/23 04/23/24 History Pregabalin [Lyrica] 200 mg PO TID 05/31/23 04/23/24 History oxyCODONE-APAP 10-325MG [Percocet 1 tab PO Q6H PRN 05/31/23 04/23/24 History 10-325 mg] ondansetron HCL [Zofran] 8 mg PO Q8HR PRN 07/03/23 04/23/24 History Celecoxib [CeleBREX] 200 mg PO DAILY 04/23/24 04/23/24 History Cyclobenzaprine [Flexeril] 5 mg PO BID 04/23/24 04/23/24 History Dextroamphetamine/Amphetamine 15 mg PO BID 04/23/24 04/23/24 History [Adderall] Fluticasone Propion/Salmeterol 1 inhalation PO RT-BID 04/23/24 04/23/24 History [Advair 250-50 Diskus] Montelukast [Singulair] 10 mg PO DAILY 04/23/24 04/23/24 History Ocrelizumab [Ocrevus] 600 mg IV Q180D 04/23/24 04/23/24 History Semaglutide [Ozempic] 2 mg SQ FR 04/23/24 04/23/24 History Allergies Allergy/AdvReac Type Severity Reaction Status Date / Time amoxicillin [From Augmentin] Allergy Diarrhea, Verified 04/23/24 16:54 hives clavulanic acid Allergy Diarrhea, Verified 04/23/24 16:54 [From Augmentin] hives doxycycline Allergy Rash/Hives Verified 04/23/24 16:54 glatiramer (copolymer 1) Allergy Rapid Verified 04/23/24 16:54 [From Copaxone] Heart Rate,hives, skin flushing sulfamethoxazole Allergy blisters Verified 04/23/24 16:54 [From Bactrim] in mouth, rash/hives trimethoprim [From Bactrim] Allergy blisters Verified 04/23/24 16:54 in mouth, rash/hives steroids AdvReac genital Uncoded 04/23/24 16:54 burning & rashes but still takes steroids. Physical Exam Vitals: Vital Signs Temp Pulse Resp BP Pulse Ox FiO2 04/24/24 12:31 110 H 22 123/104 93 L 04/24/24 11:47 92 04/24/24 11:38 107 H 04/24/24 10:02 116 H 18 115/82 92 L 04/24/24 08:43 122 H 04/24/24 08:41 95 18 108/52 97 04/24/24 08:32 97 97 04/24/24 07:59 96 20 137/87 96 04/24/24 07:02 98.1 F 91 20 118/70 95 04/23/24 19:53 106 H 18 04/23/24 19:43 108 H 21 50 04/23/24 18:33 105 H 18 112/83 97 04/23/24 16:34 108 H 24 04/23/24 16:04 129 H 37 H 04/23/24 16:02 50 04/23/24 15:37 124 H 22 130/93 90 L 04/23/24 15:25 98.7 F 131 H 18 79/56 88 L Intake and Output 04/23/24 04/24/24 04/24/24 22:59 06:59 14:59 Other: Weight 104.326 kg General: well nourished, well developed, alert, sitting up in bed, NAD. Vitals reviewed Eyes: PERRL, EOMI, conjunctiva normal HENT: normocephalic, mucus membranes moist Neck: supple, no JVD Lungs: normal respiratory effort, rhonchi and expiratory wheezing scattered throughout CV: Regular rate and rhythm, no murmur. Peripheral pulses 2+ Abdomen: soft, nondistended, no organomegaly.mild suprapubic tenderness. Skin: warm and dry. Neuro: A&Ox3, normal mood and affect Results CBC & Chem 7: 04/23/24 15:48 04/23/24 15:48 Labs: Abnormal Lab Results - Last 24 Hours (Table) 04/23/24 04/23/24 04/24/24 Range/Units 15:48 15:48 11:59 WBC 26.1 H (3.8-10.6) k/uL RBC 6.33 H (3.80-5.40) m/uL Hct 47.6 H (34.0-46.0) % MCV 75.2 L (80.0-100.0) fL MCH 24.1 L (25.0-35.0) pg RDW 18.3 H (11.5-15.5) % Neutrophils # 22.2 H (1.3-7.7) k/uL Monocytes # 1.1 H (0-1.0) k/uL Sodium 130 L (137-145) mmol/L Chloride 93 L (98-107) mmol/L BUN 18 H (7-17) mg/dL Glucose 153 H (74-99) mg/dL POC Glucose (mg/dL) 160 H (70-110) mg/dL Assessment and Plan Assessment: Acute COPD exacerbation with possible pneumonia, procalcitonin pending. Viral studies negative Acute on chronic hypoxic respiratory failure secondary to the above. Reports on previous admission, sent home on 2 L nasal cannula O2 Leukocytosis Factor V Leiden, history of Chronic pain syndrome History of osteoarthritis History of multiple sclerosis Morbid obesity, BMI 37 Nicotine dependence Plan: Continue on current medication regimen, monitoring and symptomatic treatment. Aggressive pulmonary toileting with nebulized bronchodilators, IV steroids, Symbicort, empiric antibiotics. Patient currently on oxycodone, cyclobenzaprine, morphine sulfate ER and asking for Dilaudid-states she had received this on last admission and it worked well for her. Pain management discussed with patient, including risks for respiratory depression -no Dilaudid ordered, but will max Tylenol. Patient also has history of recurrent UTIs, will order UA with culture. The impression and plan of care has been dictated as directed. : I performed a history and examination of this patient, discussed the same with the dictator. I agree with the dictator's note ,documented as a scribe. Any additional findings or plans will be noted.
[2024-04-24] MEDS: NICOTINE 21MG/24HR PATCH TRANSDERM SCH (16:40)
[2024-04-24 16:50] LABS: Glucose,Whole Blood 202 mg/dL (70-110)
[2024-04-24] MEDS: ACETAMINOPHEN TAB 325 MG TAB PO PRN (18:18)
[2024-04-24 20:13] LABS: Glucose,Whole Blood 167 mg/dL (70-110)
[2024-04-24] MEDS: MONTELUKAST 10 MG TAB PO SCH (20:44)
[2024-04-24] MEDS ORDERED: INSULIN ASPART (NovoLOG) 100 UNIT/ML VIAL SQ SCH (21:00)
[2024-04-25] MEDS: oxyCODONE-APAP 10-325MG 1 EACH TAB ONE (04:40)
[2024-04-25 06:02] LABS: Glucose,Whole Blood 200 mg/dL (70-110)
[2024-04-25] MEDS: ERGOCALCIFEROL 1,250 MCG (50,000 IU) CAPSULE PO SCH (09:15)
[2024-04-25 10:25] LABS: Anisocytosis Slight; HCT 40.2 % (34.0-46.0); Hypochromasia Marked; MCH 23.5 pg (25.0-35.0); MCHC 30.6 g/dL (31.0-37.0); MCV 76.9 fL (80.0-100.0); Mean Platelet Volume 7.3; Microcytosis Slight; Platelet Count 329 k/uL (150-450); RBC 5.22 m/uL (3.80-5.40); RDW 18.4 % (11.5-15.5); WBC 27.8 k/uL (3.8-10.6)
--- NOTE | 2024-04-25 10:31 | P.PN ---
Subjective Progress Note Date: 04/25/24 H&P Date: 04/24/24 Chief Complaint: Progressive shortness of breath This is a 54-year-old female with past medical history significant for COPD, DVT, factor V Leiden, hypothyroidism ,recurrent UTI with ESBL, MS, chronic back pain, laminectomy/decompression, fibromyalgia gastroesophageal reflux disease, recently discharged on 04/20/2024 with similar presentation presented to the ER with complaints of progressive shortness of breath, productive cough with yellow sputum, body aches, congestion and fevers. States she did not actually take her temperature. Reports she follows with Dr. Moreno outpatient, pulmonology.Viral studies negative. Chest x-ray reporting right basilar infiltrates, early for bibasilar atelectasis. Procalcitonin pending. On admission afebrile, tachycardic, hypoxic requiring up to 5 L nasal cannula, weaned down to 3 L currently, maintaining O2 sats in the 90s. WBC 26.1, hemoglobin 15.3, platelets 405, INR 0.9, sodium 130, potassium 4, bicarb 29, BUN 18, creatinine 0.98, glucose 153, lactic acid 2, magnesium 1.9, troponins negative x 1, proBNP 325. 04/25/2024 ongoing cough now nonproductive. Maintained on nebulized bronchodilators, Symbicort, IV steroids and antibiotics. Complains of anxiety. breathing improving, decreased wheezing. maintaining O2 sats in the 90s on 3 L nasal cannula. Denies chills or sweats. Procalcitonin normal, 0.11. Afebrile, labs pending, UA not collected yet. Objective - Vital Signs Vital signs: Vital Signs Temp 98.1 F 04/24/24 23:17 Pulse 82 04/25/24 08:50 Resp 22 04/25/24 04:13 BP 132/82 04/25/24 04:13 Pulse Ox 94 L 04/25/24 08:44 FiO2 50 04/24/24 23:06 Intake & Output 04/24/24 04/25/24 04/25/24 18:59 06:59 18:59 Weight 104.326 kg 103.5 kg - Exam General: well nourished, well developed, alert, sitting up in bed, NAD. Vitals r eviewed Eyes: PERRL, EOMI, conjunctiva normal HENT: normocephalic, mucus membranes moist Neck: supple, no JVD Lungs: normal respiratory effort, decreased expiratory wheezing and rhonchi rhonchi CV: Regular rate and rhythm, no murmur. Peripheral pulses 2+ Abdomen: soft, nondistended, no organomegaly.mild suprapubic tenderness. Skin: warm and dry. Neuro: A&Ox3, normal mood and affect - Labs CBC & Chem 7: 04/23/24 15:48 04/23/24 15:48 Labs: Abnormal Lab Results - Last 24 Hours (Table) 04/24/24 04/24/24 04/24/24 Range/Units 11:59 16:45 20:12 POC Glucose (mg/dL) 160 H 202 H 167 H (70-110) mg/dL 04/25/24 Range/Units 06:00 POC Glucose (mg/dL) 200 H (70-110) mg/dL Microbiology - Last 24 Hours (Table) 04/23/24 15:48 Blood Culture - Preliminary Blood Assessment and Plan Assessment: Acute COPD exacerbation , procalcitonin normal, viral studies negative. Acute on chronic hypoxic respiratory failure secondary to the above. Reports on previous admission, sent home on 2 L nasal cannula O2 Leukocytosis Factor V Leiden, history of Chronic pain syndrome History of osteoarthritis History of multiple sclerosis Morbid obesity, BMI 37 Nicotine dependence Plan: Continue on current medication regimen, monitoring and symptomatic treatment. Maintain aggressive pulmonary toileting with nebulized bronchodilators, IV steroids, Symbicort. Hydroxyzine ordered prn for anxiety. Increase ambulation, PT/OT consulted. The impression and plan of care has been dictated as directed. : I performed a history and examination of this patient, discussed the same with the dictator. I agree with the dictator's note ,documented as a scribe. Any additional findings or plans will be noted.
[2024-04-25 10:32] LABS: African American GFR (CKD) >90 (>60 ml/min/1.73 sqM); Anion Gap 4 mmol/L; Blood Urea Nitrogen 15 mg/dL (7-17); Calcium 8.9 mg/dL (8.4-10.2); Carbon Dioxide 29 mmol/L (22-30); Chloride 100 mmol/L (98-107); Glucose 189 mg/dL (74-99); Non-African American GFR(CKD) >90 (>60 ml/min/1.73 sqM); Potassium 4.5 mmol/L (3.5-5.1); Sodium 133 mmol/L (137-145)
[2024-04-25 10:41] LABS: HGB 12.3 gm/dL (11.4-16.0)
[2024-04-25 10:59] LABS: Band Neutrophils % 2 %; Lymphocytes # (M) 1.39 k/uL (1.0-4.8); Metamyelocytes # (M) 0.56 k/uL (0); Metamyelocytes % 2 %; Monocytes # (M) 0.56 k/uL (0-1.0); Neutrophils % (M) 91 %; Nucleated Red Blood Cells 0 /100 WBC (0-0); Total Cells Counted 200
[2024-04-25] MEDS: guaiFENesin 600 MG TABLET.ER PO SCH (11:36)
[2024-04-25 11:37] LABS: Glucose,Whole Blood 165 mg/dL (70-110)
[2024-04-25] MEDS: DEXTROAMPHETAMINE PO SCH (11:40)
[2024-04-25] MEDS: AMPHETAMINE PO SCH (11:40)
--- NOTE | 2024-04-25 13:11 | P.PN ---
Subjective Progress Note Date: 04/25/24 Principal diagnosis: Shortness of breath. Patient is a 54-year-old white female with past medical history significant for asthma/COPD, DVT, factor V Leyden, hyperlipidemia, hypothyroidism, among other things. Her sheet metal foreman is Dr. Tay Moreno. Of note, patient states that she was recently discharged from the hospital and treated for COPD. She was treated with antibiotics during this hospitalization. Discharged with oxygen approximately 1 week ago. Patient returned to the emergency department yesterday evening in respiratory distress. She was hypoxic and initially placed on BiPAP with settings 10/5 and FiO2 50%. Currently, she remains in the emergency department, in no apparent distress at this time. On 5 L/min nasal cannula. SpO2 92%. Over the last week she has progressively become more short of breath. She has had subjective fevers, productive cough with yellow to green sputum production. Cough is persistent and she has some chest soreness associated with coughing and deep breathing. Denies hemoptysis. She has had reduced appetite and nausea. No actual vomiting, abdominal pain, diarrhea. Chest x-ray showing mild bibasilar infiltrates. CBC: WBC count 26.1, hemoglobin 15.3, hematocrit 47.6, platelets 405. CMP: Sodium 130, potassium 4, chloride 93, serum bicarb 29, BUN 18, creatinine 0.98, glucose 153. LFTs unremarkable. Troponin less than 0.012. NT proBNP 325. EKG showing sinus tachycardia with nonspecific T wave abnormalities. Denies missing any doses of Eliquis. Negative for influenza, RSV, COVID. Currently covered on a combination of azithromycin and cefepime. Currently afebrile. She is waiting for a bed on the stepdown unit. Progress note dated April 25, 2024. This is a 54-year-old female seen yesterday in consultation. The patient complains of shortness of breath, and a history of asthma/COPD. The patient typically sees the other sheet metal foreman in town. She presented with complaints of fever, productive cough, yellow phlegm production, as well as chest congestion. Chest x-ray suggested either infiltrates or atelectasis at the bases. The patient's procalcitonin level was normal at 0.11. All antibiotics will be discontinued. She continues on oxygen by nasal cannula at 4 L. She is not receiving any IV fluids. Current laboratory data includes a white count 27.8, hemoglobin 12.3, hematocrit 40.2, and a platelet count of 329,000. Sodium 133, potassium 4.5, chlorides 100, CO2 29, BUN 15, creatinine 0.64. Glucose is 189. Calcium is 8.9. Objective - Vital Signs Vital signs: Vital Signs Temp 98.1 F 04/25/24 11:48 Pulse 77 04/25/24 12:14 Resp 20 04/25/24 11:48 BP 141/91 04/25/24 11:48 Pulse Ox 92 L 04/25/24 11:48 FiO2 50 04/24/24 23:06 Intake & Output 04/24/24 04/25/24 04/25/24 18:59 06:59 18:59 Weight 104.326 kg 103.5 kg - Exam No acute distress, oriented 3. HEENT examination is grossly unremarkable. Mucous membranes are moist. No oral lesions. Neck supple. Full range of motion. No adenopathy thyromegaly or neck vein distention. Cardiovascular examination reveals regular rhythm rate. S1-S2 normal. No S3 or S4. No discernible murmur noted. Lungs reveal bilateral wheezes and rhonchi. No crackles. Abdomen soft bowel sounds are heard. No masses or tenderness. Extremities are intact. No cyanosis clubbing or edema. Skin is without rash or lesion. Neurologic examination is brief but nonfocal. - Labs CBC & Chem 7: 04/25/24 09:57 04/25/24 09:57 Labs: Abnormal Lab Results - Last 24 Hours (Table) 04/24/24 04/24/24 04/25/24 Range/Units 16:45 20:12 06:00 WBC (3.8-10.6) k/uL MCV (80.0-100.0) fL MCH (25.0-35.0) pg MCHC (31.0-37.0) g/dL RDW (11.5-15.5) % Neutrophils # (Manual) (1.3-7.7) k/uL Metamyelocytes # (Man) (0) k/uL Sodium (137-145) mmol/L Glucose (74-99) mg/dL POC Glucose (mg/dL) 202 H 167 H 200 H (70-110) mg/dL 04/25/24 04/25/2424 Range/Units 09:57 09:57 11:35 WBC 27.8 H (3.8-10.6) k/uL MCV 76.9 L (80.0-100.0) fL MCH 23.5 L (25.0-35.0) pg MCHC 30.6 L (31.0-37.0) g/dL RDW 18.4 H (11.5-15.5) % Neutrophils # (Manual) 25.80 H (1.3-7.7) k/uL Metamyelocytes # (Man) 0.56 H (0) k/uL Sodium 133 L (137-145) mmol/L Glucose 189 H (74-99) mg/dL POC Glucose (mg/dL) 165 H (70-110) mg/dL Microbiology - Last 24 Hours (Table) 04/23/24 15:48 Blood Culture - Preliminary Blood Assessment and Plan Assessment: Acute COPD/asthma exacerbation. Acute hypoxemic respiratory failure. Acute leukocytosis. History of DVT. History of factor V Leyden. History of multiple sclerosis. Chronic pain. Chronic ongoing tobacco dependence. Plan: Plan dated April 25, 2024. Patient is currently on 4 L. No IV fluids. Her procalcitonin level is only 0.11. Antibiotics have been discontinued. Labs, x-rays, and medications are all reviewed. We will continue to follow the patient, continue to provide the patient with updrafts, Symbicort, and steroids. Additional recommendations and suggestions are forthcoming. Labs, x-rays, and all medications, have been reviewed. Time with Patient: Less than 30
[2024-04-25] MEDS: hydrOXYzine HCL 25 MG TAB PO PRN (14:16)
[2024-04-25 16:05] LABS: Glucose,Whole Blood 207 mg/dL (70-110)
[2024-04-25 20:41] LABS: Glucose,Whole Blood 190 mg/dL (70-110)
[2024-04-25] MEDS: traZODone HCL 100 MG TAB PO SCH (20:51)
[2024-04-25] MEDS: AMITRIPTYLINE HCL 50 MG TAB PO SCH (20:51)
[2024-04-26 06:38] LABS: Glucose,Whole Blood 192 mg/dL (70-110)
--- NOTE | 2024-04-26 11:08 | P.PN ---
Subjective Progress Note Date: 04/26/24 Principal diagnosis: Shortness of breath. Patient is a 54-year-old white female with past medical history significant for asthma/COPD, DVT, factor V Leyden, hyperlipidemia, hypothyroidism, among other things. Her design drafter chief is Dr. Tay Moreno. Of note, patient states that she was recently discharged from the hospital and treated for COPD. She was treated with antibiotics during this hospitalization. Discharged with oxygen approximately 1 week ago. Patient returned to the emergency department yesterday evening in respiratory distress. She was hypoxic and initially placed on BiPAP with settings 10/5 and FiO2 50%. Currently, she remains in the emergency department, in no apparent distress at this time. On 5 L/min nasal cannula. SpO2 92%. Over the last week she has progressively become more short of breath. She has had subjective fevers, productive cough with yellow to green sputum production. Cough is persistent and she has some chest soreness associated with coughing and deep breathing. Denies hemoptysis. She has had reduced appetite and nausea. No actual vomiting, abdominal pain, diarrhea. Chest x-ray showing mild bibasilar infiltrates. CBC: WBC count 26.1, hemoglobin 15.3, hematocrit 47.6, platelets 405. CMP: Sodium 130, potassium 4, chloride 93, serum bicarb 29, BUN 18, creatinine 0.98, glucose 153. LFTs unremarkable. Troponin less than 0.012. NT proBNP 325. EKG showing sinus tachycardia with nonspecific T wave abnormalities. Denies missing any doses of Eliquis. Negative for influenza, RSV, COVID. Currently covered on a combination of azithromycin and cefepime. Currently afebrile. She is waiting for a bed on the stepdown unit. Progress note dated April 25, 2024. This is a 54-year-old female seen yesterday in consultation. The patient complains of shortness of breath, and a history of asthma/COPD. The patient typically sees the other design drafter chief in town. She presented with complaints of fever, productive cough, yellow phlegm production, as well as chest congestion. Chest x-ray suggested either infiltrates or atelectasis at the bases. The patient's procalcitonin level was normal at 0.11. All antibiotics will be discontinued. She continues on oxygen by nasal cannula at 4 L. She is not receiving any IV fluids. Current laboratory data includes a white count 27.8, hemoglobin 12.3, hematocrit 40.2, and a platelet count of 329,000. Sodium 133, potassium 4.5, chlorides 100, CO2 29, BUN 15, creatinine 0.64. Glucose is 189. Calcium is 8.9. Progress note dated April 26, 2024. 54-year-old female seen today in room 366. The patient states that she is not feeling much improved, in regards to her shortness of breath. She is not receiving any IV fluids. She is on O2 at 4 L. She did not use a BiPAP device last night. Her procalcitonin level was 0.11. We will change her Symbicort to budesonide and formoterol. We will order a follow-up chest x-ray. No new labs today, other than a glucose of 192. Objective - Vital Signs Vital signs: Vital Signs Temp 98.1 F 04/26/24 03:53 Pulse 104 H 04/26/24 08:15 Resp 16 04/26/24 03:53 BP 121/80 04/26/24 03:53 Pulse Ox 93 L 04/26/24 03:53 FiO2 50 04/24/24 23:06 Intake & Output 04/25/24 04/26/24 04/26/24 18:59 06:59 18:59 Intake Total 120 Balance 120 Weight 103.5 kg 102.2 kg Intake: Oral 120 Other: Voiding Method Toilet # Voids 1 2 - Exam No acute distress, oriented 3. Currently on 4 L. HEENT examination is grossly unremarkable. Mucous membranes are moist. No oral lesions. Neck supple. Full range of motion. No adenopathy thyromegaly or neck vein dis tention. Cardiovascular examination reveals regular rhythm rate. S1-S2 normal. No S3 or S4. No discernible murmur noted. Lungs reveal bilateral wheezes and rhonchi. No crackles. Abdomen soft bowel sounds are heard. No masses or tenderness. Extremities are intact. No cyanosis clubbing or edema. Skin is without rash or lesion. Neurologic examination is brief but nonfocal. - Labs CBC & Chem 7: 04/25/24 09:57 04/25/24 09:57 Labs: Abnormal Lab Results - Last 24 Hours (Table) 04/25/24 04/25/24 04/25/24 Range/Units 09:57 11:35 16:04 POC Glucose (mg/dL) 165 H 207 H (70-110) mg/dL Hemoglobin A1c 6.6 H (<=6.0) % 04/25/24 04/26/24 Range/Units 20:40 06:36 POC Glucose (mg/dL) 190 H 192 H (70-110) mg/dL Hemoglobin A1c (<=6.0) % Microbiology - Last 24 Hours (Table) 04/23/24 15:48 Blood Culture - Preliminary Blood Assessment and Plan Assessment: Acute COPD/asthma exacerbation. Acute hypoxemic respiratory failure. Acute leukocytosis. History of DVT. History of factor V Leyden. History of multiple sclerosis. Chronic pain. Chronic ongoing tobacco dependence. Plan: Plan dated April 25, 2024. Patient is currently on 4 L. No IV fluids. Her procalcitonin level is only 0.11. Antibiotics have been discontinued. Labs, x-rays, and medications are a ll reviewed. We will continue to follow the patient, continue to provide the patient with updrafts, Symbicort, and steroids. Additional recommendations and suggestions are forthcoming. Labs, x-rays, and all medications, have been reviewed. Plan dated April 26, 2024. The patient is seen today in room 366. She continues on 4 L. No IV fluids. Procalcitonin level was 0.11. Antibiotics have been discontinued. The patient will be given budesonide, and formoterol, instead of Symbicort. Her repeat chest x-ray looks completely normal, save for changes of COPD. We will continue to follow. Labs, x-rays, and medications are reviewed. Prognosis is guarded. Time with Patient: Less than 30
[2024-04-26 11:29] LABS: Glucose,Whole Blood 216 mg/dL (70-110)
--- NOTE | 2024-04-26 13:12 | XR ---
EXAMINATION TYPE: XR chest 1V portable DATE OF EXAM: 04/26/2024 COMPARISON: 04/23/2024 INDICATION: COPD TECHNIQUE: Single frontal view of the chest is obtained. FINDINGS: The heart size is normal. The pulmonary vasculature is normal. The lungs are clear. Previous right lower lobe infiltrate has resolved. IMPRESSION: 1. No acute pulmonary process.
[2024-04-26 16:44] LABS: Glucose,Whole Blood 165 mg/dL (70-110)
[2024-04-26 20:09] LABS: Glucose,Whole Blood 254 mg/dL (70-110)
[2024-04-26] MEDS: BUDESONIDE 1 MG/2 ML NEBU INHALATION SCH (20:59)
[2024-04-26] MEDS: FORMOTEROL FUMARATE 20 MCG/2 ML NEBU INHALATION SCH (20:59)
[2024-04-26] MEDS: MELATONIN 3 MG TABLET PO SCH (21:22)
[2024-04-27 06:36] LABS: Glucose,Whole Blood 195 mg/dL (70-110)
[2024-04-27] MEDS: PANTOPRAZOLE 40 MG TABLET PO SCH (06:44)
--- NOTE | 2024-04-27 10:12 | P.PN ---
Subjective Progress Note Date: 04/27/24 Principal diagnosis: Shortness of breath. Patient is a 54-year-old white female with past medical history significant for asthma/COPD, DVT, factor V Leyden, hyperlipidemia, hypothyroidism, among other things. Her supervisor shuttle veneering is Dr. Tay Moreno. Of note, patient states that she was recently discharged from the hospital and treated for COPD. She was treated with antibiotics during this hospitalization. Discharged with oxygen approximately 1 week ago. Patient returned to the emergency department yesterday evening in respiratory distress. She was hypoxic and initially placed on BiPAP with settings 10/5 and FiO2 50%. Currently, she remains in the emergency department, in no apparent distress at this time. On 5 L/min nasal cannula. SpO2 92%. Over the last week she has progressively become more short of breath. She has had subjective fevers, productive cough with yellow to green sputum production. Cough is persistent and she has some chest soreness associated with coughing and deep breathing. Denies hemoptysis. She has had reduced appetite and nausea. No actual vomiting, abdominal pain, diarrhea. Chest x-ray showing mild bibasilar infiltrates. CBC: WBC count 26.1, hemoglobin 15.3, hematocrit 47.6, platelets 405. CMP: Sodium 130, potassium 4, chloride 93, serum bicarb 29, BUN 18, creatinine 0.98, glucose 153. LFTs unremarkable. Troponin less than 0.012. NT proBNP 325. EKG showing sinus tachycardia with nonspecific T wave abnormalities. Denies missing any doses of Eliquis. Negative for influenza, RSV, COVID. Currently covered on a combination of azithromycin and cefepime. Currently afebrile. She is waiting for a bed on the stepdown unit. Progress note dated April 25, 2024. This is a 54-year-old female seen yesterday in consultation. The patient complains of shortness of breath, and a history of asthma/COPD. The patient typically sees the other supervisor shuttle veneering in town. She presented with complaints of fever, productive cough, yellow phlegm production, as well as chest congestion. Chest x-ray suggested either infiltrates or atelectasis at the bases. The patient's procalcitonin level was normal at 0.11. All antibiotics will be discontinued. She continues on oxygen by nasal cannula at 4 L. She is not receiving any IV fluids. Current laboratory data includes a white count 27.8, hemoglobin 12.3, hematocrit 40.2, and a platelet count of 329,000. Sodium 133, potassium 4.5, chlorides 100, CO2 29, BUN 15, creatinine 0.64. Glucose is 189. Calcium is 8.9. Progress note dated April 26, 2024. 54-year-old female seen today in room 366. The patient states that she is not feeling much improved, in regards to her shortness of breath. She is not receiving any IV fluids. She is on O2 at 4 L. She did not use a BiPAP device last night. Her procalcitonin level was 0.11. We will change her Symbicort to budesonide and formoterol. We will order a follow-up chest x-ray. No new labs today, other than a glucose of 192. Progress note dated April 27, 2024. This is a 54-year-old female who typically sees the other supervisor shuttle veneering, over at [facility]. The patient was admitted with a diagnosis of COPD exacerbation. She had a repeat chest x-ray yesterday, that was normal. Procalcitonin level was 0.11. She is on 3 L of oxygen. No IV fluids. Despite excellent medications, she continues to state that she is not feeling any better. She wishes to have a CT scan ordered. I do not believe this and need for CT scan at this time. If the primary service wants to order a CT scan, that would be okay. No new labs today other than a glucose of 195. Objective - Vital Signs Vital signs: Vital Signs Temp 98.2 F 04/27/24 04:00 Pulse 73 04/27/24 04:00 Resp 16 04/27/24 04:00 BP 152/90 04/27/24 04:00 Pulse Ox 95 04/27/24 04:00 FiO2 50 04/24/24 23:06 Intake & Output 04/26/24 04/27/24 04/27/24 18:59 06:59 18:59 Intake Total 1858 Balance 1858 Weight 103.2 kg Intake: Oral 1858 Other: Voiding Method Toilet Toilet # Voids 2 - Exam No acute distress, oriented 3. Currently on 3 L. HEENT examination is grossly unremarkable. Mucous membranes are moist. No oral lesions. Neck supple. Full range of motion. No adenopathy thyromegaly or neck vein distention. Cardiovascular examination reveals regular rhythm rate. S1-S2 normal. No S3 or S4. No discernible murmur noted. Lungs reveal mild bilateral wheezes and rhonchi. No crackles. Saturations are 95 to 97%. Abdomen soft bowel sounds are heard. No masses or tenderness. Extremities are intact. No cyanosis clubbing or edema. Skin is without rash or lesion. Neurologic examination is brief but nonfocal. - Labs CBC & Chem 7: 04/25/24 09:57 04/25/24 09:57 Labs: Abnormal Lab Results - Last 24 Hours (Table) 04/26/24 04/26/24 04/26/24 Range/Units 11:28 16:39 20:07 POC Glucose (mg/dL) 216 H 165 H 254 H (70-110) mg/dL 04/27/24 Range/Units 06:35 POC Glucose (mg/dL) 195 H (70-110) mg/dL Microbiology - Last 24 Hours (Table) 04/23/24 15:48 Blood Culture - Preliminary Blood Assessment and Plan Assessment: Acute COPD/asthma exacerbation. Acute hypoxemic respiratory failure. Acute leukocytosis. History of DVT. History of factor V Leyden. History of multiple sclerosis. Chronic pain. Chronic ongoing tobacco dependence. Plan: Plan dated April 25, 2024. Patient is currently on 4 L. No IV fluids. Her procalcitonin level is only 0.11. Antibiotics have been discontinued. Labs, x-rays, and medications are all reviewed. We will continue to follow the patient, continue to provide the patient with updrafts, Symbicort, and steroids. Additional recommendations and suggestions are forthcoming. Labs, x-rays, and all medications, have been reviewed. Plan dated April 26, 2024. The patient is seen today in room 366. She continues on 4 L. No IV fluids. Procalcitonin level was 0.11. Antibiotics have been discontinued. The patient will be given budesonide, and formoterol, instead of Symbicort. Her repeat chest x-ray looks completely normal, save for changes of COPD. We will continue to follow. Labs, x-rays, and medications are reviewed. Prognosis is guarded. Plan dated April 27, 2024. The patient is seen today in room 366. Clinically, the patient looks relatively stable. She is down to 3 L of oxygen. Her breath sounds are improved. Procalcitonin level was 0.11. The patient's chest x-ray showed no acute process. The patient all along has been on Eliquis. Yesterday, Symbicort was discontinued, in favor of budesonide and formoterol. Labs, x-rays, and all medications are reviewed. The patient requested a CT scan be done. Apparently her other supervisor shuttle veneering was going to order one, although the reasons are unclear to me. If the primary service wishes to order a CT scan, they can. Time with Patient: Less than 30
[2024-04-27 11:28] LABS: Glucose,Whole Blood 154 mg/dL (70-110)
[2024-04-27 14:36] LABS: African American GFR (CKD) >90 (>60 ml/min/1.73 sqM); Anion Gap 7 mmol/L; Blood Urea Nitrogen 24 mg/dL (7-17); Calcium 9.1 mg/dL (8.4-10.2); Carbon Dioxide 31 mmol/L (22-30); Chloride 97 mmol/L (98-107); Glucose 276 mg/dL (74-99); Non-African American GFR(CKD) 90 (>60 ml/min/1.73 sqM); Potassium 4.1 mmol/L (3.5-5.1); Sodium 135 mmol/L (137-145)
[2024-04-27 14:43] LABS: Anisocytosis Slight; Basophils % (A) 0 %; Eosinophils % (A) 0 %; HCT 41.3 % (34.0-46.0); HGB 12.8 gm/dL (11.4-16.0); Hypochromasia Marked; Lymphocytes # (A) 0.6 k/uL (1.0-4.8); Lymphocytes % (A) 3 %; MCH 24.2 pg (25.0-35.0); MCV 78.1 fL (80.0-100.0); Mean Platelet Volume 7.2; Microcytosis Slight; Monocytes # (A) 0.6 k/uL (0-1.0); Monocytes % (A) 3 %; Neutrophils # (A) 20.2 k/uL (1.3-7.7); Neutrophils % (A) 94 %; Platelet Count 278 k/uL (150-450); RBC 5.29 m/uL (3.80-5.40); RDW 18.7 % (11.5-15.5); WBC 21.5 k/uL (3.8-10.6)
--- NOTE | 2024-04-27 15:49 | P.PN ---
Subjective Progress Note Date: 04/26/24 54-year-old female with past medical history significant for COPD, DVT, factor V Leiden, hypothyroidism ,recurrent UTI with ESBL, MS, chronic back pain, laminectomy/decompression, fibromyalgia gastroesophageal reflux disease, recently discharged on 04/20/2024 with similar presentation presented to the ER with complaints of progressive shortness of breath, productive cough with yellow sputum, body aches, congestion and fevers. States she did not actually take her temperature. Reports she follows with Dr. Moreno outpatient, pulmonology.Viral studies negative. Chest x-ray reporting right basilar infiltrates, early for bibasilar atelectasis. Procalcitonin pending. On admission afebrile, tachycardic, hypoxic requiring up to 5 L nasal cannula, weaned down to 3 L currently, maintaining O2 sats in the 90s. WBC 26.1, hemoglobin 15.3, platelets 405, INR 0.9, sodium 130, potassium 4, bicarb 29, BUN 18, creatinine 0.98, glucose 153, lactic acid 2, magnesium 1.9, troponins negative x 1, proBNP 325. Objective - Vital Signs Vital signs: Vital Signs Temp 98.1 F 04/26/24 03:53 Pulse 104 H 04/26/24 08:15 Resp 16 04/26/24 03:53 BP 121/80 04/26/24 03:53 Pulse Ox 93 L 04/26/24 03:53 FiO2 50 04/24/24 23:06 Intake & Output 04/25/24 04/26/24 04/26/24 18:59 06:59 18:59 Intake Total 120 Balance 120 Weight 103.5 kg 102.2 kg Intake: Oral 120 Other: Voiding Method Toilet # Voids 1 2 - Exam General: well nourished, well developed, alert, sitting up in bed, NAD. Vitals reviewed Eyes: PERRL, EOMI, conjunctiva normal HENT: normocephalic, mucus membranes moist Neck: supple, no JVD Lungs: normal respiratory effort, decreased expiratory wheezing and rhonchi rhonchi CV: Regular rate and rhythm, no murmur. Peripheral pulses 2+ Abdomen: soft, nondistended, no organomegaly.mild suprapubic tenderness. Skin: warm and dry. Neuro: A&Ox3, normal mood and affect - Labs CBC & Chem 7: 04/27/24 14:11 04/27/24 14:11 Labs: Abnormal Lab Results - Last 24 Hours (Table) 04/25/24 04/25/24 04/25/24 Range/Units 09:57 09:57 09:57 WBC 27.8 H (3.8-10.6) k/uL MCV 76.9 L (80.0-100.0) fL MCH 23.5 L (25.0-35.0) pg MCHC 30.6 L (31.0-37.0) g/dL RDW 18.4 H (11.5-15.5) % Neutrophils # (Manual) 25.80 H (1.3-7.7) k/uL Metamyelocytes # (Man) 0.56 H (0) k/uL Sodium 133 L (137-145) mmol/L Glucose 189 H (74-99) mg/dL POC Glucose (mg/dL) (70-110) mg/dL Hemoglobin A1c 6.6 H (<=6.0) % 04/25/24 04/25/24 04/25/24 Range/Units 11:35 16:04 20:40 WBC (3.8-10.6) k/uL MCV (80.0-100.0) fL MCH (25.0-35.0) pg MCHC (31.0-37.0) g/dL RDW (11.5-15.5) % Neutrophils # (Manual) (1.3-7.7) k/uL Metamyelocytes # (Man) (0) k/uL Sodium (137-145) mmol/L Glucose (74-99) mg/dL POC Glucose (mg/dL) 165 H 207 H 190 H (70-110) mg/dL Hemoglobin A1c (<=6.0) % 04/26/24 Range/Units 06:36 WBC (3.8-10.6) k/uL MCV (80.0-100.0) fL MCH (25.0-35.0) pg MCHC (31.0-37.0) g/dL RDW (11.5-15.5) % Neutrophils # (Manual) (1.3-7.7) k/uL Metamyelocytes # (Man) (0) k/uL Sodium (137-145) mmol/L Glucose (74-99) mg/dL POC Glucose (mg/dL) 192 H (70-110) mg/dL Hemoglobin A1c (<=6.0) % Microbiology - Last 24 Hours (Table) 04/23/24 15:48 Blood Culture - Preliminary Blood Assessment and Plan Assessment: Acute COPD exacerbation , procalcitonin normal, viral studies negative. Acute on chronic hypoxic respiratory failure secondary to the above. Reports on previous admission, sent home on 2 L nasal cannula O2 Leukocytosis Factor V Leiden, history of Chronic pain syndrome History of osteoarthritis History of multiple sclerosis Morbid obesity, BMI 37 Nicotine dependence Plan: Continue on current medication regimen, monitoring and symptomatic treatment. Maintain aggressive pulmonary toileting with nebulized bronchodilators, IV steroids, Symbicort. Hydroxyzine ordered prn for anxiety. Increase ambulation, PT/OT consulted.
--- NOTE | 2024-04-27 15:52 | P.PN ---
Subjective Progress Note Date: 04/27/24 54-year-old female with past medical history significant for COPD, DVT, factor V Leiden, hypothyroidism ,recurrent UTI with ESBL, MS, chronic back pain, laminectomy/decompression, fibromyalgia gastroesophageal reflux disease, recently discharged on 04/20/2024 with similar presentation presented to the ER with complaints of progressive shortness of breath, productive cough with yellow sputum, body aches, congestion and fevers. States she did not actually take her temperature. Reports she follows with Dr. Moreno outpatient, pulmonology.Viral studies negative. Chest x-ray reporting right basilar infiltrates, early for bibasilar atelectasis. Procalcitonin pending. On admission afebrile, tachycardic, hypoxic requiring up to 5 L nasal cannula, weaned down to 3 L currently, maintaining O2 sats in the 90s. WBC 26.1, hemoglobin 15.3, platelets 405, INR 0.9, sodium 130, potassium 4, bicarb 29, BUN 18, creatinine 0.98, glucose 153, lactic acid 2, magnesium 1.9, troponins negative x 1, proBNP 325. 04/27/2024 The patient is seen and evaluated in room at bedside; was admitted with a diagnosis of COPD exacerbation. She had a repeat chest x-ray yesterday, that wa s normal. Procalcitonin level was 0.11. She is on 3 L of oxygen; continues to state that she is not feeling any better. She wishes to have a CT scan ordered. Pulmonary service on board and not recommending CT scan at this time. Lab review shows WBC 21.5, hemoglobin 12.8 and platelet count of 278, sodium 135, potassium 4.5, BUNs/creatinine of 20/0.76 -Patient does continue to improve clinically -- Pulmonary service recommending to continue with current management and will reevaluate tomorrow morning Objective - Vital Signs Vital signs: Vital Signs Temp 98.2 F 04/27/24 04:00 Pulse 73 04/27/24 04:00 Resp 16 04/27/24 04:00 BP 152/90 04/27/24 04:00 Pulse Ox 95 04/27/24 04:00 FiO2 50 04/24/24 23:06 Intake & Output 04/26/24 04/27/24 04/27/24 18:59 06:59 18:59 Intake Total 1858 Balance 185 Weight 103.2 kg Intake: Oral 1857 Other: Voiding Method Toilet Toilet # Voids 2 - Exam General: well nourished, well developed, alert, sitting up in bed, NAD. Vitals reviewed Eyes: PERRL, EOMI, conjunctiva normal HENT: normocephalic, mucus membranes moist Neck: supple, no JVD Lungs: normal respiratory effort, decreased expiratory wheezing and rhonchi rhonchi CV: Regular rate and rhythm, no murmur. Peripheral pulses 2+ Abdomen: soft, nondistended, no organomegaly.mild suprapubic tenderness. Skin: warm and dry. Neuro: A&Ox3, normal mood and affect - Labs CBC & Chem 7: 04/27/24 14:11 04/27/24 14:11 Labs: Abnormal Lab Results - Last 24 Hours (Table) 04/26/24 04/26/24 04/26/24 Range/Units 11:28 16:39 20:07 POC Glucose (mg/dL) 216 H 165 H 254 H (70-110) mg/dL 04/27/24 Range/Units 06:35 POC Glucose (mg/dL) 195 H (70-110) mg/dL Microbiology - Last 24 Hours (Table) 04/23/24 15:48 Blood Culture - Preliminary Blood Assessment and Plan Assessment: Acute COPD exacerbation , procalcitonin normal, viral studies negative. Acute on chronic hypoxic respiratory failure secondary to the above. Reports on previous admission, sent home on 2 L nasal cannula O2 Leukocytosis Factor V Leiden, history of Chronic pain syndrome History of osteoarthritis History of multiple sclerosis Morbid obesity, BMI 37 Nicotine dependence Plan: Continue on current medication regimen, monitoring and symptomatic treatment. Maintain aggressive pulmonary toileting with nebulized bronchodilators, IV steroids, Symbicort. Hydroxyzine ordered prn for anxiety. Increase ambulation, PT/OT consulted.
[2024-04-27 16:32] LABS: Glucose,Whole Blood 180 mg/dL (70-110)
[2024-04-27 20:07] LABS: Glucose,Whole Blood 248 mg/dL (70-110)
[2024-04-28 05:50] LABS: Glucose,Whole Blood 238 mg/dL (70-110)
[2024-04-28 08:18] LABS: African American GFR (CKD) >90 (>60 ml/min/1.73 sqM); Anion Gap 3 mmol/L; Blood Urea Nitrogen 28 mg/dL (7-17); Calcium 8.8 mg/dL (8.4-10.2); Carbon Dioxide 34 mmol/L (22-30); Chloride 98 mmol/L (98-107); Glucose 194 mg/dL (74-99); Non-African American GFR(CKD) >90 (>60 ml/min/1.73 sqM); Potassium 4.1 mmol/L (3.5-5.1); Sodium 135 mmol/L (137-145)
[2024-04-28 08:30] LABS: Anisocytosis Slight; Basophils % (A) 0 %; Eosinophils % (A) 0 %; HCT 39.1 % (34.0-46.0); HGB 12.1 gm/dL (11.4-16.0); Hypochromasia Marked; Lymphocytes # (A) 0.5 k/uL (1.0-4.8); Lymphocytes % (A) 3 %; MCH 23.9 pg (25.0-35.0); Mean Platelet Volume 7.1; Microcytosis Slight; Monocytes # (A) 0.5 k/uL (0-1.0); Monocytes % (A) 3 %; Neutrophils # (A) 16.3 k/uL (1.3-7.7); Neutrophils % (A) 94 %; Platelet Count 202 k/uL (150-450); RBC 5.08 m/uL (3.80-5.40); RDW 18.8 % (11.5-15.5); WBC 17.5 k/uL (3.8-10.6)
--- NOTE | 2024-04-28 10:12 | P.PN ---
Subjective 54-year-old female with past medical history significant for COPD, DVT, factor V Leiden, hypothyroidism ,recurrent UTI with ESBL, MS, chronic back pain, laminectomy/decompression, fibromyalgia gastroesophageal reflux disease, recently discharged on 04/20/2024 with similar presentation presented to the ER with complaints of progressive shortness of breath, productive cough with yellow sputum, body aches, congestion and fevers. States she did not actually take her temperature. Reports she follows with Dr. Moreno outpatient, pulmonolog y.Viral studies negative. Chest x-ray reporting right basilar infiltrates, early for bibasilar atelectasis. Procalcitonin pending. On admission afebrile, tachycardic, hypoxic requiring up to 5 L nasal cannula, weaned down to 3 L currently, maintaining O2 sats in the 90s. WBC 26.1, hemoglobin 15.3, platelets 405, INR 0.9, sodium 130, potassium 4, bicarb 29, BUN 18, creatinine 0.98, glucose 153, lactic acid 2, magnesium 1.9, troponins negative x 1, proBNP 325. 04/27/2024 The patient is seen and evaluated in room at bedside; was admitted with a diagnosis of COPD exacerbation. She had a repeat chest x-ray yesterday, that was normal. Procalcitonin level was 0.11. She is on 3 L of oxygen; continues to state that she is not feeling any better. She wishes to have a CT scan ordered. Pulmonary service on board and not recommending CT scan at this time. Lab review shows WBC 21.5, hemoglobin 12.8 and platelet count of 278, sodium 135, potassium 4.5, BUNs/creatinine of 20/0.76 -Patient does continue to improve clinically -- Pulmonary service recommending to continue with current management and will reevaluate tomorrow morning 04/28 Patient still have some breathing difficulty Especially with talking Currently she is on 2 to 3 L oxygen via nasal cannula, at home she was not on oxygen She still has wheezing scattered both sides She is on Eliquis at home for history of DVT and factor V Leyden abnormality She is on Solu-Medrol 60 mg Patient requested CAT scan to check for pneumonia explained for the patient the suspicion for pneumonia is low no need for CAT scan and she verbalized understanding and acceptance to avoid CAT scan for now for this purpose Objective - Vital Signs Vital signs: Vital Signs Temp 98.5 F 04/28/24 08:30 Pulse 83 04/28/24 08:30 Resp 19 04/28/24 08:30 BP 132/83 04/28/24 08:30 Pulse Ox 94 L 04/28/24 08:30 FiO2 50 04/24/24 23:06 Intake & Output 04/27/24 04/28/24 04/28/24 18:59 06:59 18:59 Intake Total 1318 Balance 1318 Weight 104.1 kg Intake: Oral 1318 Other: Voiding Method Toilet Toilet Toilet # Voids 2 2 - Exam GENERAL: The patient is alert and oriented x3, not in any acute distress. Well developed, well nourished. HEENT: Pupils are round and equally reacting to light. EOMI. No scleral icterus. No conjunctival pallor. Normocephalic, atraumatic. No pharyngeal erythema. No thyromegaly. CARDIOVASCULAR: S1 and S2 present. No murmurs, rubs, or gallops. -PULMONARY: Chest is clear to auscultation, n bilateral scattered wheezing , no crackles. ABDOMEN: Soft, nontender, nondistended, normoactive bowel sounds. No palpable organomegaly. MUSCULOSKELETAL: No joint swelling or deformity. EXTREMITIES: No cyanosis, clubbing, or pedal edema. NEUROLOGICAL: Gross neurological examination did not reveal any focal deficits. SKIN: No rashes. no petechiae. - Labs CBC & Chem 7: 04/28/24 07:23 04/28/24 07:23 Labs: Abnormal Lab Results - Last 24 Hours (Table) 04/27/24 04/27/24 04/27/24 Range/Units 11:26 14:11 14:11 WBC 21.5 H (3.8-10.6) k/uL MCV 78.1 L (80.0-100.0) fL MCH 24.2 L (25.0-35.0) pg RDW 18.7 H (11.5-15.5) % Neutrophils # 20.2 H (1.3-7.7) k/uL Lymphocytes # 0.6 L (1.0-4.8) k/uL Sodium 135 L (137-145) mmol/L Chloride 97 L (98-107) mmol/L Carbon Dioxide 31 H (22-30) mmol/L BUN 24 H (7-17) mg/dL Glucose 276 H (74-99) mg/dL POC Glucose (mg/dL) 154 H (70-110) mg/dL 04/27/24 04/27/24 04/28/24 Range/Units 16:31 20:05 05:46 WBC (3.8-10.6) k/uL MCV (80.0-100.0) fL MCH (25.0-35.0) pg RDW (11.5-15.5) % Neutrophils # (1.3-7.7) k/uL Lymphocytes # (1.0-4.8) k/uL Sodium (137-145) mmol/L Chloride (98-107) mmol/L Carbon Dioxide (22-30) mmol/L BUN (7-17) mg/dL Glucose (74-99) mg/dL POC Glucose (mg/dL) 180 H 248 H 238 H (70-110) mg/dL 04/28/24 04/28/24 Range/Units 07:23 07:23 WBC 17.5 H (3.8-10.6) k/uL MCV 77.0 L (80.0-100.0) fL MCH 23.9 L (25.0-35.0) pg RDW 18.8 H (11.5-15.5) % Neutrophils # 16.3 H (1.3-7.7) k/uL Lymphocytes # 0.5 L (1.0-4.8) k/uL Sodium 135 L (137-145) mmol/L Chloride (98-107) mmol/L Carbon Dioxide 34 H (22-30) mmol/L BUN 28 H (7-17) mg/dL Glucose 194 H (74-99) mg/dL POC Glucose (mg/dL) (70-110) mg/dL Microbiology - Last 24 Hours (Table) 04/26/24 08:34 Blood Culture - Preliminary Blood Assessment and Plan Assessment: Acute COPD exacerbation , procalcitonin normal, viral studies negative. Acute on chronic hypoxic respiratory failure secondary to the above. Reports on previous admission, sent home on 2 L nasal cannula O2 Leukocytosis Factor V Leiden, history of Chronic pain syndrome History of osteoarthritis History of multiple sclerosis Morbid obesity, BMI 37 Nicotine dependence Plan: Continue with IV Solu-Medrol 60 mg Continue with oxygen therapy Continue with bronchodilator Pulmonary team consult on the case Labs and medication were reviewed.. Continue same treatment. Continue with symptomatic treatment. Resume home medication. Monitor labs and vitals. DVT and GI prophylaxis. Further recommendations as per clinical course of the patient DVT prophylaxis: Eliquis GI Prophylaxis: Ppi Prognosis is guarded
--- NOTE | 2024-04-28 10:29 | P.PN ---
Subjective Progress Note Date: 04/28/24 Principal diagnosis: Shortness of breath. Patient is a 54-year-old white female with past medical history significant for asthma/COPD, DVT, factor V Leyden, hyperlipidemia, hypothyroidism, among other things. Her youth director is Dr. Tay Moreno. Of note, patient states that she was recently discharged from the hospital and treated for COPD. She was treated with antibiotics during this hospitalization. Discharged with oxygen approximately 1 week ago. Patient returned to the emergency department yesterday evening in respiratory distress. She was hypoxic and initially placed on BiPAP with settings 10/5 and FiO2 50%. Currently, she remains in the emergency department, in no apparent distress at this time. On 5 L/min nasal cannula. SpO2 92%. Over the last week she has progressively become more short of breath. She has had subjective fevers, productive cough with yellow to green sputum production. Cough is persistent and she has some chest soreness associated with coughing and deep breathing. Denies hemoptysis. She has had reduced appetite and nausea. No actual vomiting, abdominal pain, diarrhea. Chest x-ray showing mild bibasilar infiltrates. CBC: WBC count 26.1, hemoglobin 15.3, hematocrit 47.6, platelets 405. CMP: Sodium 130, potassium 4, chloride 93, serum bicarb 29, BUN 18, creatinine 0.98, glucose 153. LFTs unremarkable. Troponin less than 0.012. NT proBNP 325. EKG showing sinus tachycardia with nonspecific T wave abnormalities. Denies missing any doses of Eliquis. Negative for influenza, RSV, COVID. Currently covered on a combination of azithromycin and cefepime. Currently afebrile. She is waiting for a bed on the stepdown unit. Progress note dated April 25, 2024. This is a 54-year-old female seen yesterday in consultation. The patient complains of shortness of breath, and a history of asthma/COPD. The patient typically sees the other youth director in town. She presented with complaints of fever, productive cough, yellow phlegm production, as well as chest congestion. Chest x-ray suggested either infiltrates or atelectasis at the bases. The patient's procalcitonin level was normal at 0.11. All antibiotics will be discontinued. She continues on oxygen by nasal cannula at 4 L. She is not receiving any IV fluids. Current laboratory data includes a white count 27.8, hemoglobin 12.3, hematocrit 40.2, and a platelet count of 329,000. Sodium 133, potassium 4.5, chlorides 100, CO2 29, BUN 15, creatinine 0.64. Glucose is 189. Calcium is 8.9. Progress note dated April 26, 2024. 54-year-old female seen today in room 366. The patient states that she is not feeling much improved, in regards to her shortness of breath. She is not receiving any IV fluids. She is on O2 at 4 L. She did not use a BiPAP device last night. Her procalcitonin level was 0.11. We will change her Symbicort to budesonide and formoterol. We will order a follow-up chest x-ray. No new labs today, other than a glucose of 192. Progress note dated April 27, 2024. This is a 54-year-old female who typically sees the other youth director, over at [facility]. The patient was admitted with a diagnosis of COPD exacerbation. She had a repeat chest x-ray yesterday, that was normal. Procalcitonin level was 0.11. She is on 3 L of oxygen. No IV fluids. Despite excellent medications, she continues to state that she is not feeling any better. She wishes to have a CT scan ordered. I do not believe this and need for CT scan at this time. If the primary service wants to order a CT scan, that would be okay. No new labs today other than a glucose of 195. Progress note dated April 28, 2024. 54-year-old female admitted with a diagnosis of COPD exacerbation. Clinically, she is improved. Chest x-ray is stable. Procalcitonin level was normal. She is on appropriate medications including updrafts with albuterol sulfate ipratropium bromide, Pulmicort 1 mg, formoterol 20 mcg, and Solu-Medrol, 60 mg every 6 hours. Current labs include a white count of 17.5, hemoglobin 12.1, hematocrit 39.1, and a platelet count of 202,000. Sodium 135, potassium 4.1, chloride 98, CO2 34, BUN 28, creatinine 0.71. Glucose is 194. Calcium is 8.8. Objective - Vital Signs Vital signs: Vital Signs Temp 98.5 F 09/02/24 08:30 Pulse 83 04/28/24 08:30 Resp 19 04/28/24 08:30 BP 132/83 04/28/24 08:30 Pulse Ox 94 L 04/28/24 08:30 FiO2 50 04/24/24 23:06 Intake & Output 04/27/24 04/28/24 04/28/24 18:59 06:59 18:59 Intake Total 1318 Balance 1318 Weight 104.1 kg Intake: Oral 1318 Other: Voiding Method Toilet Toilet Toilet # Voids 2 2 - Exam No acute distress, oriented 3. Currently on 3 L. Saturations are 94%. HEENT examination is grossly unremarkable. Mucous membranes are moist. No oral lesions. Neck supple. Full range of motion. No adenopathy thyromegaly or neck vein distention. Cardiovascular examination reveals regular rhythm rate. S1-S2 normal. No S3 or S4. No discernible murmur noted. Heart sounds are distant. Heart rate 83 bpm. Lungs reveal mild bilateral wheezes and rhonchi. No crackles. Saturations are 94%. Abdomen soft bowel sounds are heard. No masses or tenderness. Extremities are intact. No cyanosis clubbing or edema. Skin is without rash or lesion. Neurologic examination is brief but nonfocal. - Labs CBC & Chem 7: 04/28/24 07:23 04/28/24 07:23 Labs: Abnormal Lab Results - Last 24 Hours (Table) 04/27/24 04/27/24 04/27/24 Range/Units 11:26 14:11 14:11 WBC 21.5 H (3.8-10.6) k/uL MCV 78.1 L (80.0-100.0) fL MCH 24.2 L (25.0-35.0) pg RDW 18.7 H (11.5-15.5) % Neutrophils # 20.2 H (1.3-7.7) k/uL Lymphocytes # 0.6 L (1.0-4.8) k/uL Sodium 135 L (137-145) mmol/L Chloride 97 L (98-107) mmol/L Carbon Dioxide 31 H (22-30) mmol/L BUN 24 H (7-17) mg/dL Glucose 276 H (74-99) mg/dL POC Glucose (mg/dL) 154 H (70-110) mg/dL 04/27/24 04/27/24 04/28/24 Range/Units 16:31 20:05 05:46 WBC (3.8-10.6) k/uL MCV (80.0-100.0) fL MCH (25.0-35.0) pg RDW (11.5-15.5) % Neutrophils # (1.3-7.7) k/uL Lymphocytes # (1.0-4.8) k/uL Sodium (137-145) mmol/L Chloride (98-107) mmol/L Carbon Dioxide (22-30) mmol/L BUN (7-17) mg/dL Glucose (74-99) mg/dL POC Glucose (mg/dL) 180 H 248 H 238 H (70-110) mg/dL 04/28/24 04/28/24 Range/Units 07:23 07:23 WBC 17.5 H (3.8-10.6) k/uL MCV 77.0 L (80.0-100.0) fL MCH 23.9 L (25.0-35.0) pg RDW 18.8 H (11.5-15.5) % Neutrophils # 16.3 H (1.3-7.7) k/uL Lymphocytes # 0.5 L (1.0-4.8) k/uL Sodium 135 L (137-145) mmol/L Chloride (98-107) mmol/L Carbon Dioxide 34 H (22-30) mmol/L BUN 28 H (7-17) mg/dL Glucose 194 H (74-99) mg/dL POC Glucose (mg/dL) (70-110) mg/dL Microbiology - Last 24 Hours (Table) 04/26/24 08:34 Blood Culture - Preliminary Blood Assessment and Plan Assessment: Acute COPD/asthma exacerbation. Acute hypoxemic respiratory failure. Acute leukocytosis. History of DVT. History of factor V Leyden. History of multiple sclerosis. Chronic pain. Chronic ongoing tobacco dependence. Plan: Plan dated April 25, 2024. Patient is currently on 4 L. No IV fluids. Her procalcitonin level is only 0.11. Antibiotics have been discontinued. Labs, x-rays, and medications are all reviewed. We will continue to follow the patient, continue to provide the patient with [facility], Symbicort, and steroids. Additional recommendations and suggestions are forthcoming. Labs, x-rays, and all medications, have been reviewed. Plan dated April 26, 2024. The patient is seen today in room 366. She continues on 4 L. No IV fluids. Procalcitonin level was 0.11. Antibiotics have been discontinued. The patient will be given budesonide, and formoterol, instead of Symbicort. Her repeat chest x-ray looks completely normal, save for changes of COPD. We will continue to follow. Labs, x-rays, and medications are reviewed. Prognosis is guarded. Plan dated April 27, 2024. The patient is seen today in room 366. Clinically, the patient looks relatively stable. She is down to 3 L of oxygen. Her breath sounds are improved. Procalcitonin level was 0.11. The patient's chest x-ray showed no acute process. The patient all along has been on Eliquis. Yesterday, Symbicort was discontinued, in favor of budesonide and formoterol. Labs, x-rays, and all medications are reviewed. The patient requested a CT scan be done. Apparently her other youth director was going to order one, although the reasons are unclear to me. If the primary service wishes to order a CT scan, they can. Plan dated April 28, 2024. The patient continues to show improvement. She is on 3 L. Saturations are between 94 and 95%. She is on appropriate medications. Chest x-ray is unremarkable. Procalcitonin level is normal. Additional recommendations and suggestions are forthcoming. The patient should follow-up with Dr. Moreno, after discharge. Time with Patient: Less than 30
[2024-04-28 11:40] LABS: Glucose,Whole Blood 176 mg/dL (70-110)
[2024-04-28] MEDS: IBUPROFEN 600 MG TAB PO STA (15:59)
[2024-04-28 16:38] LABS: Glucose,Whole Blood 185 mg/dL (70-110)
[2024-04-28 20:23] LABS: Glucose,Whole Blood 253 mg/dL (70-110)
[2024-04-29 06:25] LABS: Glucose,Whole Blood 175 mg/dL (70-110)
[2024-04-29] MEDS: DULoxetine HCL 60 MG CAPSULE.DR PO SCH (09:33)
[2024-04-29] MEDS: MELOXICAM 7.5 MG TAB PO SCH (09:33)
[2024-04-29] MEDS: polyethylene glycoL 3350 17 GM POWD.PACK PO SCH (09:33)
[2024-04-29 11:21] LABS: Glucose,Whole Blood 232 mg/dL (70-110)
--- NOTE | 2024-04-29 13:54 | P.PN ---
Subjective Progress Note Date: 04/29/24 Patient is a 54-year-old white female with past medical history significant for asthma/COPD, DVT, factor V Leyden, hyperlipidemia, hypothyroidism, among other things. Her research food technologist is Dr. Tay Moreno. Of note, patient states that she was recently discharged from the hospital and treated for COPD. She was treated with antibiotics during this hospitalization. Discharged with oxygen approximately 1 week ago. Patient returned to the emergency department yesterday evening in respiratory distress. She was hypoxic and initially placed on BiPAP with settings 10/5 and FiO2 50%. Currently, she remains in the emergency department, in no apparent distress at this time. On 5 L/min nasal cannula. SpO2 92%. Over the last week she has progressively become more short of breath. She has had subjective fevers, productive cough with yellow to green sputum production. Cough is persistent and she has some chest soreness associated with coughing and deep breathing. Denies hemoptysis. She has had reduced appetite and nausea. No actual vomiting, abdominal pain, diarrhea. Chest x-ray showing mild bibasilar infiltrates. CBC: WBC count 26.1, hemoglobin 15.3, hematocrit 47.6, platelets 405. CMP: Sodium 130, potassium 4, chloride 93, serum bicarb 29, BUN 18, creatinine 0.98, glucose 153. LFTs unremarkable. Troponin less than 0.012. NT proBNP 325. EKG showing sinus tachycardia with nonspecific T wave abnormalities. Denies missing any doses of Eliquis. Negative for influenza, RSV, COVID. Currently covered on a combination of azithromycin and cefepime. Currently afebrile. She is waiting for a bed on the stepdown unit. Progress note dated April 25, 2024. This is a 54-year-old female seen yesterday in consultation. The patient complains of shortness of breath, and a history of asthma/COPD. The patient typically sees the other research food technologist in town. She presented with complaints of fever, productive cough, yellow phlegm production, as well as chest congestion. Chest x-ray suggested either infiltrates or atelectasis at the bases. The patient's procalcitonin level was normal at 0.11. All antibiotics will be discontinued. She continues on oxygen by nasal cannula at 4 L. She is not receiving any IV fluids. Current laboratory data includes a white count 27.8, hemoglobin 12.3, hematocrit 40.2, and a platelet count of 329,000. Sodium 133, potassium 4.5, chlorides 100, CO2 29, BUN 15, creatinine 0.64. Glucose is 189. Calcium is 8.9. Progress note dated April 26, 2024. 54-year-old female seen today in room 366. The patient states that she is not feeling much improved, in regards to her shortness of breath. She is not receiving any IV fluids. She is on O2 at 4 L. She did not use a BiPAP device last night. Her procalcitonin level was 0.11. We will change her Symbicort to budesonide and formoterol. We will order a follow-up chest x-ray. No new labs today, other than a glucose of 192. Progress note dated April 27, 2024. This is a 54-year-old female who typically sees the other research food technologist, over at [facility]. The patient was admitted with a diagnosis of COPD exacerbation. She had a repeat chest x-ray yesterday, that was normal. Procalcitonin level was 0.11. She is on 3 L of oxygen. No IV fluids. Despite excellent medications, she continues to state that she is not feeling any better. She wishes to have a CT scan ordered. I do not believe this and need for CT scan at this time. If the primary service wants to order a CT scan, that would be okay. No new labs today other than a glucose of 195. Progress note dated April 28, 2024. 54-year-old female admitted with a diagnosis of COPD exacerbation. Clinically, she is improved. Chest x-ray is stable. Procalcitonin level was normal. She is on appropriate medications including updrafts with albuterol sulfate ipratropium bromide, Pulmicort 1 mg, formoterol 20 mcg, and Solu-Medrol, 60 mg every 6 hours. Current labs include a white count of 17.5, hemoglobin 12.1, hematocrit 39.1, and a platelet count of 202,000. Sodium 135, potassium 4.1, chloride 98, CO2 34, BUN 28, creatinine 0.71. Glucose is 194. Calcium is 8.8. On today's evaluation of 04/29/2024, the patient is being seen for a follow-up., Comfortable, was positioned on a bedside recliner. No significant shortness of breath at rest. She is having some cough and congestion and she remains on oxygen 2 L/min nasal cannula. Remains on bronchodilators. Remains on DuoNeb nebulized treatments [id number]. Remains on budesonide and Perforomist nebulized treatments twice a day and IV Solu-Medrol 60 mg every 6 hours. The patient is currently not receiving any antibiotics. The most recent chest x-ray from 04/26/2024 showed no acute cardiopulmonary process. Labs from yesterday was noted. The white cell count was dropping down to 17.5 with a hemoglobin 4.1 and a platelet count of 202. BUN is 29 with a creatinine of 0.7 and sodium is at 135 with a potassium level of 4.1. Procalcitonin level has been essentially within normal limits. Patient is very much weak and debilitated. Objective - Vital Signs Vital signs: Vital Signs Temp 97.6 F 04/29/24 07:57 Pulse 96 04/29/24 09:11 Resp 16 04/29/24 09:11 BP 129/86 04/29/24 07:57 Pulse Ox 93 L 04/29/24 07:57 FiO2 50 04/24/24 23:06 Intake & Output 04/28/24 04/29/24 04/29/24 18:59 06:59 18:59 Intake Total 1500 236 Balance 1500 236 Weight 105.4 kg Intake: Oral 1500 236 Other: Voiding Method Toilet Toilet Toilet # Voids 2 - Exam No acute distress, oriented 3. Currently on 3 L, the patient has no signs of respiratory distress while at rest Head exam was generally normal. There was no scleral icterus or corneal arcus. Mucous membranes were moist. HEENT examination is grossly unremarkable. Mucous membranes are moist. No oral lesions. Neck supple. Full range of motion. No adenopathy thyromegaly or neck vein distention. Cardiovascular examination reveals regular rhythm rate. S1-S2 normal. No S3 or S4. No discernible murmur noted. Heart sounds are distant. Lungs reveal mild bilateral wheezes and rhonchi. No crackles. Breath sounds are quite diminished bilaterally and the patient is scheduled for wheezes throughout the lung washburn bilaterally. Abdomen soft bowel sounds are heard. No masses or tenderness. Extremities are intact. No cyanosis clubbing or edema. Skin is without rash or lesion. Neurologic examination is brief but nonfocal. - Labs CBC & Chem 7: 04/28/24 07:23 04/28/24 07:23 Labs: Abnormal Lab Results - Last 24 Hours (Table) 04/28/24 04/28/24 04/28/24 Range/Units 11:37 16:36 20:04 POC Glucose (mg/dL) 176 H 185 H 253 H (70-110) mg/dL 04/29/24 Range/Units 06:12 POC Glucose (mg/dL) 175 H (70-110) mg/dL Microbiology - Last 24 Hours (Table) 04/23/24 15:48 Blood Culture - Final Blood 04/26/24 08:34 Blood Culture - Preliminary Blood Assessment and Plan Plan: Acute COPD/asthma exacerbation, clinically improving and the patient is lysing BiPAP overnight and currently in oxygen at 2 L/min nasal cannula. No signs of any respite distress at rest, at rest, nevertheless, the patient remains actively bronchospastic and wheezy and this is her second admission over the past 3 to 4 weeks. Chest x-ray history of an acute pulmonary process. The patient remains on mucolytic's and steroids. Acute on chronic hypoxic respiratory failure, currently on 2 L of O2 nasal cannula Acute leukocytosis, improving and the procalcitonin level is 0.04, the white cell count is improving History of DVT. History of factor V Leyden. History of multiple sclerosis. Chronic pain. Chronic ongoing tobacco dependence. Chronic debility secondary above-mentioned comorbidities Obesity with some cushingoid features related to chronic steroid use History of adrenal insufficiency Plan: Limited improvement despite aggressive bronchodilators and steroid regimen. Oxygen requirements of 2 L/min nasal cannula. Continue same treatment for now. Keep steroids at the same dose. Continue rest of bronchodilators. Will cont inue to follow. No clear indication for pneumonia. Continued anticoagulation. Change IV fluids to KVO.
--- NOTE | 2024-04-29 15:33 | P.PN ---
Subjective Progress Note Date: 04/29/24 H&P Date: 04/24/24 Chief Complaint: Progressive shortness of breath This is a 54-year-old female with past medical history significant for COPD, DVT, factor V Leiden, hypothyroidism ,recurrent UTI with ESBL, MS, chronic back pain, laminectomy/decompression, fibromyalgia gastroesophageal reflux disease, recently discharged on 04/20/2024 with similar presentation presented to the ER with complaints of progressive shortness of breath, productive cough with yellow sputum, body aches, congestion and fevers. States she did not actually take her temperature. Reports she follows with Dr. Moreno outpatient, pulmonology.Viral studies negative. Chest x-ray reporting right basilar infiltrates, early for bibasilar atelectasis. Procalcitonin pending. On admission afebrile, tachycardic, hypoxic requiring up to 5 L nasal cannula, weaned down to 3 L currently, maintaining O2 sats in the 90s. WBC 26.1, hemoglobin 15.3, platelets 405, INR 0.9, sodium 130, potassium 4, bicarb 29, BUN 18, creatinine 0.98, glucose 153, lactic acid 2, magnesium 1.9, troponins negative x 1, proBNP 325. 04/25/2024 ongoing cough now nonproductive. Maintained on nebulized bronchodilators, Symbicort, IV steroids and antibiotics. Complains of anxiety. breathing improving, decreased wheezing. maintaining O2 sats in the 90s on 3 L nasal cannula. Denies chills or sweats. Procalcitonin normal, 0.11. Afebrile, labs pending, UA not collected yet. 04/29/2024 using BiPAP at night .maintained on nebulized bronchodilators ATC, IV steroids, maintaining O2 sats of 93 to 94% on 2 L nasal cannula. Reports no reserve, exertional shortness of breath. States positive chest pressure from coughing-improving. Denies nausea vomiting or diarrhea. Denies lightheadedness ,dizziness or focal deficits. Denies blurred vision. Evaluated by PT recommending home at [place] Objective - Vital Signs Vital signs: Vital Signs Temp 97.6 F 04/29/24 07:57 Pulse 90 04/29/24 14:21 Resp 16 04/29/24 14:21 BP 125/79 04/29/24 12:06 Pulse Ox 94 L 04/29/24 12:06 FiO2 50 04/24/24 23:06 Intake & Output 04/28/24 04/29/24 04/29/24 18:59 06:59 18:59 Intake Total 1500 476 Balance 1500 476 Weight 105.4 kg Intake: Oral 1500 476 Other: Voiding Method Toilet Toilet Toilet # Voids 2 - Exam General: well nourished, well developed, alert, sitting up in bed, NAD. Vitals reviewed Eyes: PERRL, EOMI, conjunctiva normal HENT: normocephalic, mucus membranes moist Neck: supple, no JVD Lungs: normal respiratory effort, decreased expiratory wheezing CV: Regular rate and rhythm, no murmur. Peripheral pulses 2+ Abdomen: soft, nondistended, no organomegaly. Skin: warm and dry. Neuro: A&Ox3, normal mood and affect - Labs CBC & Chem 7: 04/28/24 07:23 04/28/24 07:23 Labs: Abnormal Lab Results - Last 24 Hours (Table) 04/28/24 04/28/24 04/29/24 Range/Units 16:36 20:04 06:12 POC Glucose (mg/dL) 185 H 253 H 175 H (70-110) mg/dL 04/29/24 Range/Units 11:19 POC Glucose (mg/dL) 232 H (70-110) mg/dL Microbiology - Last 24 Hours (Table) 04/23/24 15:48 Blood Culture - Final Blood 04/26/24 08:34 Blood Culture - Preliminary Blood Assessment and Plan Assessment: Acute COPD, asthma exacerbation , procalcitonin normal, viral studies negative. Per pulmonary no clear indication for pneumonia. Acute on chronic hypoxic respiratory failure secondary to the above. Reports on previous admission, sent home on 2 L nasal cannula O2 Leukocytosis Factor V Leiden, history of Chronic pain syndrome History of osteoarthritis History of multiple sclerosis Morbid obesity, BMI 37 Nicotine dependence Hemoglobin A1c 6.6 Plan: Continue on current medication regimen, monitoring and symptomatic treatment. Maintain aggressive pulmonary toileting with nebulized bronchodilators, Pulmicort, Perforomist, IV steroids. Tapering of steroids as per pulmonary. PT. The impression and plan of care has been dictated as directed. : I performed a history and examination of this patient, discussed the same with the dictator. I agree with the dictator's note ,documented as a scribe. Any additional findings or plans will be noted.
[2024-04-29 16:17] LABS: Glucose,Whole Blood 301 mg/dL (70-110)
[2024-04-29 20:06] LABS: Glucose,Whole Blood 229 mg/dL (70-110)
[2024-04-30 06:30] LABS: Glucose,Whole Blood 220 mg/dL (70-110)
[2024-04-30 11:26] LABS: Glucose,Whole Blood 273 mg/dL (70-110)
[2024-04-30] MEDS: MAGNESIUM OXIDE 400 MG TAB PO SCH (12:16)
[2024-04-30 14:11] VITALS: BMI 39.3
[2024-04-30] MEDS: METHYL SALICYLATE-MENTHOL OINT (3 OZ TUBE) TOPICAL PRN (16:16)
[2024-04-30 16:50] LABS: Glucose,Whole Blood 240 mg/dL (70-110)
[2024-04-30] MEDS: INSULIN DETEMIR (LEVEMIR) 100 UNIT/ML SYR SQ SCH (17:01)
[2024-04-30] MEDS: METOPROLOL SUCCINATE (ER) 25 MG TAB.ER.24H PO SCH (18:49)
[2024-04-30 20:12] LABS: Glucose,Whole Blood 259 mg/dL (70-110)
--- NOTE | 2024-04-30 21:20 | P.PN ---
Subjective Progress Note Date: 04/30/24 Patient is a 54-year-old white female with past medical history significant for asthma/COPD, DVT, factor V Leyden, hyperlipidemia, hypothyroidism, among other things. Her policy writer is Dr. Tay Moreno. Of note, patient states that she was recently discharged from the hospital and treated for COPD. She was treated with antibiotics during this hospitalization. Discharged with oxygen approximately 1 week ago. Patient returned to the emergency department yesterday evening in respiratory distress. She was hypoxic and initially placed on BiPAP with settings 10/5 and FiO2 50%. Currently, she remains in the emergency department, in no apparent distress at this time. On 5 L/min nasal cannula. SpO2 92%. Over the last week she has progressively become more short of breath. She has had subjective fevers, productive cough with yellow to green sputum production. Cough is persistent and she has some chest soreness associated with coughing and deep breathing. Denies hemoptysis. She has had reduced appetite and nausea. No actual vomiting, abdominal pain, diarrhea. Chest x-ray showing mild bibasilar infiltrates. CBC: WBC count 26.1, hemoglobin 15.3, hematocrit 47.6, platelets 405. CMP: Sodium 130, potassium 4, chloride 93, serum bicarb 29, BUN 18, creatinine 0.98, glucose 153. LFTs unremarkable. Troponin less than 0.012. NT proBNP 325. EKG showing sinus tachycardia with nonspecific T wave abnormalities. Denies missing any doses of Eliquis. Negative for influenza, RSV, COVID. Currently covered on a combination of azithromycin and cefepime. Currently afebrile. She is waiting for a bed on the stepdown unit. Progress note dated April 25, 2024. This is a 54-year-old female seen yesterday in consultation. The patient complains of shortness of breath, and a history of asthma/COPD. The patient typically sees the other policy writer in town. She presented with complaints of fever, productive cough, yellow phlegm production, as well as chest congestion. Chest x-ray suggested either infiltrates or atelectasis at the bases. The patient's procalcitonin level was normal at 0.11. All antibiotics will be discontinued. She continues on oxygen by nasal cannula at 4 L. She is not receiving any IV fluids. Current laboratory data includes a white count 27.8, hemoglobin 12.3, hematocrit 40.2, and a platelet count of 329,000. Sodium 133, potassium 4.5, chlorides 100, CO2 29, BUN 15, creatinine 0.64. Glucose is 189. Calcium is 8.9. Progress note dated April 26, 2024. 54-year-old female seen today in room 366. The patient states that she is not feeling much improved, in regards to her shortness of breath. She is not receiving any IV fluids. She is on O2 at 4 L. She did not use a BiPAP device last night. Her procalcitonin level was 0.11. We will change her Symbicort to budesonide and formoterol. We will order a follow-up chest x-ray. No new labs today, other than a glucose of 192. Progress note dated April 27, 2024. This is a 54-year-old female who typically sees the other policy writer, over at [facility]. The patient was admitted with a diagnosis of COPD exacerbation. She had a repeat chest x-ray yesterday, that was normal. Procalcitonin level was 0.11. She is on 3 L of oxygen. No IV fluids. Despite excellent medications, she continues to state that she is not feeling any better. She wishes to have a CT scan ordered. I do not believe this and need for CT scan at this time. If the primary service wants to order a CT scan, that would be okay. No new labs today other than a glucose of 195. Progress note dated April 28, 2024. 54-year-old female admitted with a diagnosis of COPD exacerbation. Clinically, she is improved. Chest x-ray is stable. Procalcitonin level was normal. She is on appropriate medications including updrafts with albuterol sulfate ipratropium bromide, Pulmicort 1 mg, formoterol 20 mcg, and Solu-Medrol, 60 mg every 6 hours. Current labs include a white count of 17.5, hemoglobin 12.1, hematocrit 39.1, and a platelet count of 202,000. Sodium 135, potassium 4.1, chloride 98, CO2 34, BUN 28, creatinine 0.71. Glucose is 194. Calcium is 8.8. On today's evaluation of 04/29/2024, the patient is being seen for a follow-up., Comfortable, was positioned on a bedside recliner. No significant shortness of breath at rest. She is having some cough and congestion and she remains on oxygen 2 L/min nasal cannula. Remains on bronchodilators. Remains on DuoNeb nebulized treatments [id number]. Remains on budesonide and Perforomist nebulized treatments twice a day and IV Solu-Medrol 60 mg every 6 hours. The patient is currently not receiving any antibiotics. The most recent chest x-ray from 04/26/2024 showed no acute cardiopulmonary process. Labs from yesterday was noted. The white cell count was dropping down to 17.5 with a hemoglobin 4.1 and a platelet count of 202. BUN is 29 with a creatinine of 0.7 and sodium is at 135 with a potassium level of 4.1. Procalcitonin level has been essentially within normal limits. Patient is very much weak and debilitated. 04/30/2024, the patient is being seen for a follow-up. Patient is less bronchospastic and wheezy on today's evaluation. No significant complaints. She continues to have a congested cough, unable to bring out sputum. She remains on Solu-Medrol 40 mg every 6 hours. She remains on DuoNeb nebulized treatments [id number]. Rest of the medications remain unchanged. Blood sugar today is at 259. No other new labs are available. Procalcitonin level is at 0.04. Chest x-ray at the time of admission and subsequent chest x-ray from 04/26/2024 showed no evidence of any pneumonia. Oxygenation is stable and the patient is currently on 2 L of O2 nasal cannula with a pulse ox of 94%. Objective - Vital Signs Vital signs: Vital Signs Temp 97.8 F 04/30/24 08:55 Pulse 118 H 04/30/24 12:05 Resp 16 04/30/24 08:55 BP 130/80 04/30/24 08:55 Pulse Ox 94 L 04/30/24 08:55 FiO2 50 04/24/24 23:06 Intake & Output 04/29/24 04/30/24 04/30/24 18:59 06:59 18:59 Intake Total 956 800 Balance 956 800 Weight 110.5 kg Intake: Oral 956 800 Other: Voiding Method Toilet Toilet Toilet # Voids 2 1 - Exam No acute distress, oriented 3. Currently on 3 L, the patient has no signs of respiratory distress while at rest Head exam was generally normal. There was no scleral icterus or corneal arcus. Mucous membranes were moist. HEENT examination is grossly unremarkable. Mucous membranes are moist. No oral lesions. Neck supple. Full range of motion. No adenopathy thyromegaly or neck vein distention. Cardiovascular examination reveals regular rhythm rate. S1-S2 normal. No S3 or S4. No discernible murmur noted. Heart sounds are distant. Lungs reveal mild bilateral wheezes and rhonchi. No crackles. Breath sounds a re quite diminished bilaterally and the patient is scheduled for wheezes throughout the lung washburn bilaterally. Abdomen soft bowel sounds are heard. No masses or tenderness. Extremities are intact. No cyanosis clubbing or edema. Skin is without rash or lesion. Neurologic examination is brief but nonfocal. - Labs CBC & Chem 7: 04/28/24 07:23 04/28/24 07:23 Labs: Abnormal Lab Results - Last 24 Hours (Table) 04/29/24 04/29/24 04/30/24 Range/Units 16:16 20:03 06:29 POC Glucose (mg/dL) 301 H 229 H 220 H (70-110) mg/dL 04/30/24 Range/Units 11:25 POC Glucose (mg/dL) 273 H (70-110) mg/dL Microbiology - Last 24 Hours (Table) 04/26/24 08:34 Blood Culture - Preliminary Blood Assessment and Plan Plan: Acute COPD/asthma exacerbation, clinically improving and the patient is lysing BiPAP overnight and currently in oxygen at 2 L/min nasal cannula. No signs of any respite distress at rest, at rest, nevertheless, the patient remains actively bronchospastic and wheezy and this is her second admission over the pas t 3 to 4 weeks. Chest x-ray history of an acute pulmonary process. The patient remains on mucolytic's and steroids. Acute on chronic hypoxic respiratory failure, currently on 2 L of O2 nasal cannula Acute leukocytosis, improving and the procalcitonin level is 0.04, the white cell count is improving History of DVT. History of factor V Leyden. History of multiple sclerosis. Chronic pain. Chronic ongoing tobacco dependence. Chronic debility secondary above-mentioned comorbidities Obesity with some cushingoid features related to chronic steroid use History of adrenal insufficiency Plan: Patient had a slow progression/recovery in terms of her COPD exacerbation. This is her second admission. She remains on bronchodilators and steroids. I am going to keep her n.p.o. after midnight and going to the bronchoscopy and therapeutic airway suctioning and bronchoalveolar lavage should there be any colonization/infection with bacteria. At the same time, this may be therapeutic for the patient. As such, the patient be kept n.p.o. for now. Slow and ongoing improvement despite aggressive bronchodilators and steroid regimen. Oxygen requirements of 2 L/min nasal cannula. Continue same treatment for now. Keep steroids at the same dose. Continue rest of bronchodilators. Will continue to follow. No clear indication for pneumonia. Continued anticoagulation. Change IV fluids to KVO. The plan is to do a bronchoscopy and therapeutic airway suctioning endobronchial lavage in a.m.
[2024-04-30] MEDS: methylPREDNISolone SOD SUCCI 40 MG/ML 1 ML VIAL IV SCH (23:34)
[2024-05-01 05:30] LABS: Glucose,Whole Blood 254 mg/dL (70-110)
[2024-05-01] MEDS ORDERED: INSULIN DETEMIR (LEVEMIR) 100 UNIT/ML SYR SQ SCH (07:00)
[2024-05-01 07:40] LABS: Anisocytosis Slight; Basophils % (A) 0 %; Eosinophils % (A) 0 %; HCT 37.9 % (34.0-46.0); HGB 11.7 gm/dL (11.4-16.0); Hypochromasia Marked; Lymphocytes # (A) 0.4 k/uL (1.0-4.8); Lymphocytes % (A) 2 %; MCH 23.8 pg (25.0-35.0); MCHC 30.7 g/dL (31.0-37.0); MCV 77.5 fL (80.0-100.0); Mean Platelet Volume 7.9; Microcytosis Slight; Monocytes # (A) 0.5 k/uL (0-1.0); Monocytes % (A) 3 %; Neutrophils # (A) 16.9 k/uL (1.3-7.7); Neutrophils % (A) 94 %; Platelet Count 227 k/uL (150-450); RBC 4.89 m/uL (3.80-5.40); RDW 18.9 % (11.5-15.5); WBC 17.9 k/uL (3.8-10.6)
[2024-05-01 07:51] LABS: African American GFR (CKD) >90 (>60 ml/min/1.73 sqM); Anion Gap 1 mmol/L; Blood Urea Nitrogen 32 mg/dL (7-17); Calcium 8.5 mg/dL (8.4-10.2); Carbon Dioxide 36 mmol/L (22-30); Chloride 97 mmol/L (98-107); Glucose 156 mg/dL (74-99); Non-African American GFR(CKD) >90 (>60 ml/min/1.73 sqM); Potassium 4.5 mmol/L (3.5-5.1); Sodium 134 mmol/L (137-145)
[2024-05-01] MEDS: HYDROmorphone 0.5 MG/0.5 ML SYRINGE IVP PRN (10:24)
[2024-05-01 11:33] LABS: Glucose,Whole Blood 160 mg/dL (70-110)
[2024-05-01] MEDS ORDERED: PROPOFOL 10 MG/ML 20 ML VIAL IV ONE (11:50)
[2024-05-01] MEDS ORDERED: diphenhydrAMINE 50 MG/ML 1 ML VIAL ONE (11:50)
[2024-05-01] MEDS ORDERED: LIDOCAINE 1% INJ 10MG/ML (20 ML MDV) ONE (11:50)
[2024-05-01] MEDS ORDERED: HYDROCORTISONE SUCCINATE 100 MG/2 ML VIAL ONE (11:50)
[2024-05-01] MEDS: IV FLUID CONTINUATION 800 ML IV ONE (12:12)
[2024-05-01] MEDS: NYSTATIN 100,000 UNIT/ML SUSP 500,000 UNIT/5 ML CUP PO SCH (12:37)
--- NOTE | 2024-05-01 15:18 | P.PN ---
Subjective Progress Note Date: 05/01/24 Patient is a 54-year-old white female with past medical history significant for asthma/COPD, DVT, factor V Leyden, hyperlipidemia, hypothyroidism, among other things. Her supply chain buyer is Dr. Tay Moreno. Of note, patient states that she was recently discharged from the hospital and treated for COPD. She was treated with antibiotics during this hospitalization. Discharged with oxygen approximately 1 week ago. Patient returned to the emergency department yesterday evening in respiratory distress. She was hypoxic and initially placed on BiPAP with settings 10/5 and FiO2 50%. Currently, she remains in the emergency department, in no apparent distress at this time. On 5 L/min nasal cannula. SpO2 92%. Over the last week she has progressively become more short of breath. She has had subjective fevers, productive cough with yellow to green sputum production. Cough is persistent and she has some chest soreness associated with coughing and deep breathing. Denies hemoptysis. She has had reduced appetite and nausea. No actual vomiting, abdominal pain, diarrhea. Chest x-ray showing mild bibasilar infiltrates. CBC: WBC count 26.1, hemoglobin 15.3, hematocrit 47.6, platelets 405. CMP: Sodium 130, potassium 4, chloride 93, serum bicarb 29, BUN 18, creatinine 0.98, glucose 153. LFTs unremarkable. Troponin less than 0.012. NT proBNP 325. EKG showing sinus tachycardia with nonspecific T wave abnormalities. Denies missing any doses of Eliquis. Negative for influenza, RSV, COVID. Currently covered on a combination of azithromycin and cefepime. Currently afebrile. She is waiting for a bed on the stepdown unit. Progress note dated April 25, 2024. This is a 54-year-old female seen yesterday in consultation. The patient complains of shortness of breath, and a history of asthma/COPD. The patient typically sees the other supply chain buyer in town. She presented with complaints of fever, productive cough, yellow phlegm production, as well as chest congestion. Chest x-ray suggested either infiltrates or atelectasis at the bases. The patient's procalcitonin level was normal at 0.11. All antibiotics will be discontinued. She continues on oxygen by nasal cannula at 4 L. She is not receiving any IV fluids. Current laboratory data includes a white count 27.8, hemoglobin 12.3, hematocrit 40.2, and a platelet count of 329,000. Sodium 133, potassium 4.5, chlorides 100, CO2 29, BUN 15, creatinine 0.64. Glucose is 189. Calcium is 8.9. Progress note dated April 26, 2024. 54-year-old female seen today in room 366. The patient states that she is not feeling much improved, in regards to her shortness of breath. She is not receiving any IV fluids. She is on O2 at 4 L. She did not use a BiPAP device last night. Her procalcitonin level was 0.11. We will change her Symbicort to budesonide and formoterol. We will order a follow-up chest x-ray. No new labs today, other than a glucose of 192. Progress note dated April 27, 2024. This is a 54-year-old female who typically sees the other supply chain buyer, over at [facility]. The patient was admitted with a diagnosis of COPD exacerbation. She had a repeat chest x-ray yesterday, that was normal. Procalcitonin level was 0.11. She is on 3 L of oxygen. No IV fluids. Despite excellent medications, she continues to state that she is not feeling any better. She wishes to have a CT scan ordered. I do not believe this and need for CT scan at this time. If the primary service wants to order a CT scan, that would be okay. No new labs today other than a glucose of 195. Progress note dated April 28, 2024. 54-year-old female admitted with a diagnosis of COPD exacerbation. Clinically, she is improved. Chest x-ray is stable. Procalcitonin level was normal. She is on appropriate medications including updrafts with albuterol sulfate ipratropium bromide, Pulmicort 1 mg, formoterol 20 mcg, and Solu-Medrol, 60 mg every 6 hours. Current labs include a white count of 17.5, hemoglobin 12.1, hematocrit 39.1, and a platelet count of 202,000. Sodium 135, potassium 4.1, chloride 98, CO2 34, BUN 28, creatinine 0.71. Glucose is 194. Calcium is 8.8. On today's evaluation of 04/29/2024, the patient is being seen for a follow-up., Comfortable, was positioned on a bedside recliner. No significant shortness of breath at rest. She is having some cough and congestion and she remains on oxygen 2 L/min nasal cannula. Remains on bronchodilators. Remains on DuoNeb nebulized treatments [id number]. Remains on budesonide and Perforomist nebulized treatments twice a day and IV Solu-Medrol 60 mg every 6 hours. The patient is currently not receiving any antibiotics. The most recent chest x-ray from 04/26/2024 showed no acute cardiopulmonary process. Labs from yesterday was noted. The white cell count was dropping down to 17.5 with a hemoglobin 4.1 and a platelet count of 202. BUN is 29 with a creatinine of 0.7 and sodium is at 135 with a potassium level of 4.1. Procalcitonin level has been essentially within normal limits. Patient is very much weak and debilitated. 04/30/2024, the patient is being seen for a follow-up. Patient is less bronchospastic and wheezy on today's evaluation. No significant complaints. She continues to have a congested cough, unable to bring out sputum. She remains on Solu-Medrol 40 mg every 6 hours. She remains on DuoNeb nebulized treatments [id number]. Rest of the medications remain unchanged. Blood sugar today is at 259. No other new labs are available. Procalcitonin level is at 0.04. Chest x-ray at the time of admission and subsequent chest x-ray from 04/26/2024 showed no evidence of any pneumonia. Oxygenation is stable and the patient is currently on 2 L of O2 nasal cannula with a pulse ox of 94%. 05/01/2024, seen the patient for a follow-up. The patient is still congested and wheezy. She is currently n.p.o. awaiting a bronchoscopy for therapeutic airway suctioning and a bronchial lavage. She remains on same regimen of bronchodilators. She remains on DuoNeb nebulized treatments [id number], she remains on a Perforomist and Pulmicort nebulized treatments twice a day and IV Solu-Medrol 40 g every 6 hours. Rest of the medications remain unchanged. Labs from today shows a WBC count 17.9 with a hemoglobin 11.7 and platelet count of 227. BUN 32 with a creatinine of 0.59 and sodium levels at 134. Serum bicarb is at 36. In terms of oxygenation, the patient is on 3 L of oxygen by nasal cannula with a pulse ox of 93%. She remains on insulin, Levemir 15 units daily and NovoLog sliding scale coverage. Objective - Vital Signs Vital signs: Vital Signs Temp 97.9 F 05/01/24 08:01 Pulse 92 05/01/24 08:31 Resp 18 05/01/24 08:01 BP 121/82 05/01/24 08:01 Pulse Ox 97 05/01/24 08:01 FiO2 50 04/24/24 23:06 Intake & Output 04/30/24 05/01/24 05/01/24 18:59 06:59 18:59 Intake Total 1598 Balance 1598 Weight 110.5 kg 109.5 kg Intake: Oral 1598 Other: Voiding Method Toilet Toilet Toilet # Voids 3 2 - Exam No acute distress, oriented 3. Currently on 3 L, the patient has no signs of respiratory distress while at rest Head exam was generally normal. There was no scleral icterus or corneal arcus. Mucous membranes were moist. HEENT examination is grossly unremarkable. Mucous membranes are moist. No oral lesions. Neck supple. Full range of motion. No adenopathy thyromegaly or neck vein distention. Cardiovascular examination reveals regular rhythm rate. S1-S2 normal. No S3 or S4. No discernible murmur noted. Heart sounds are distant. Lungs reveal mild bilateral wheezes and rhonchi. No crackles. Breath sounds are quite diminished bilaterally and the patient is scheduled for wheezes throug hout the lung [place] bilaterally. Abdomen soft bowel sounds are heard. No masses or tenderness. Extremities are intact. No cyanosis clubbing or edema. Skin is without rash or lesion. Neurologic examination is brief but nonfocal. - Labs CBC & Chem 7: 05/01/24 07:20 05/01/24 07:20 Labs: Abnormal Lab Results - Last 24 Hours (Table) 04/30/24 04/30/24 04/30/24 Range/Units 11:25 16:46 20:10 WBC (3.8-10.6) k/uL MCV (80.0-100.0) fL MCH (25.0-35.0) pg MCHC (31.0-37.0) g/dL RDW (11.5-15.5) % Neutrophils # (1.3-7.7) k/uL Lymphocytes # (1.0-4.8) k/uL Sodium (137-145) mmol/L Chloride (98-107) mmol/L Carbon Dioxide (22-30) mmol/L BUN (7-17) mg/dL Glucose (74-99) mg/dL POC Glucose (mg/dL) 273 H 240 H 259 H (70-110) mg/dL 05/01/24 05/01/24 05/01/24 Range/Units 05:28 07:20 07:20 WBC 17.9 H (3.8-10.6) k/uL MCV 77.5 L (80.0-100.0) fL MCH 23.8 L (25.0-35.0) pg MCHC 30.7 L (31.0-37.0) g/dL RDW 18.9 H (11.5-15.5) % Neutrophils # 16.9 H (1.3-7.7) k/uL Lymphocytes # 0.4 L (1.0-4.8) k/uL Sodium 134 L (137-145) mmol/L Chloride 97 L (98-107) mmol/L Carbon Dioxide 36 H (22-30) mmol/L BUN 32 H (7-17) mg/dL Glucose 156 H (74-99) mg/dL POC Glucose (mg/dL) 254 H (70-110) mg/dL Assessment and Plan Plan: Acute COPD/asthma exacerbation, clinically improving and the patient is lysing BiPAP overnight and currently in oxygen at 2 L/min nasal cannula. No signs of any respite distress at rest, at rest, nevertheless, the patient remains actively bronchospastic and wheezy and this is her second admission over the past 3 to 4 weeks. Chest x-ray history of an acute pulmonary process. The pa tient remains on mucolytic's and steroids. Acute on chronic hypoxic respiratory failure, currently on 2 L of O2 nasal cannula Acute leukocytosis, improving and the procalcitonin level is 0.04, the white cell count is improving History of DVT. History of factor V Leyden. History of multiple sclerosis. Chronic pain. Chronic ongoing tobacco dependence. Chronic debility secondary above-mentioned comorbidities Obesity with some cushingoid features related to chronic steroid use History of adrenal insufficiency Plan: Patient is n.p.o. Patient had a slow progression/recovery in terms of her COPD exacerbation. This is her second admission. She remains on bronchodilators and steroids. I am going to keep her n.p.o. after midnight and going to the bronchoscopy and therapeutic airway suctioning and bronchoalveolar lavage should there be any colonization/infection with bacteria. At the same time, this may be therapeutic for the patient. As such, the patient be kept n.p.o. for now. Slow and ongoing improvement despite aggressive bronchodilators and steroid regimen. Oxygen requirements of 3 L/min nasal cannula. Continue same treatment for now. Keep steroids at the same dose. Continue rest of bronchodilators. Continued anticoagulation with Eliquis IV fluids to KVO. The plan is to do a bronchoscopy and therapeutic airway suctioning endobronchial lavage today
--- NOTE | 2024-05-01 15:22 | P.PCN ---
Date of Procedure: 05/01/24 Preoperative Diagnosis: COPD exacerbation, persistent dyspnea, cough and congestion Postoperative Diagnosis: Candidiasis involving the oropharyngeal and laryngeal structures Copious retained secretions within the patient's airways. Rule out tracheobronchitis Procedure(s) Performed: Flexible bronchoscopy, therapeutic airway suctioning, bronchioloalveolar lavage of the left lower lobe Anesthesia: MAC Surgeon: Anthony Moore Estimated Blood Loss (ml): 0 Pathology: other Condition: stable Disposition: floor Operative Findings: This is a flexible bronchoscopy that was done in the endoscopy suite. Consent was obtained. Timeout was done. Anesthetic agents was given by anesthesia at the bedside. The procedure was done while the patient was being placed on a 10 L simple fullface mask. After achieving adequate sedation, the flexor bronchoscope was inserted through the right nostril to the left upper airway. Examination of the posterior pharynx and larynx was done and the patient had extensive inflammation of the posterior laryngeal wall extending to the arytenoids causing irregularity and swelling and this is consistent with candidiasis. White cheesy type of material was seen scattered throughout the patient's upper airway. Vocal cords were functional with normal abduction and adduction. A total of 2 cc of 1% lidocaine was applied to the vocal cord and following that the bronchoscope was advanced into the upper trachea. Examination of tracheobronchial tree was done. There was no evidence of any tracheobronchomalacia. Nevertheless, there was copious amount of thick purulent respiratory secretions retained throughout the patient's airway. Therapeutic airway suctioning was done. The secretions were irrigated with saline and there were suctioned out without any major difficulties. The visualized airways included trachea, bilateral mainstem bronc hi, right upper lobe bronchus, intermedius, right middle lobe and right lower lobe bronchus and the previous stent segments on the right and examination of the left the left upper lobe bronchus and the left lower lobe bronchus and there is a segment of the left. Endobronchial lavage of the left lower lobe was done. Total of 40 cc of fluid was a infused and a total of 10 cc was aspirated without any major difficulties. No complications. The bronchoscope was removed and the patient was transferred to recovery in stable condition. The bronchoalveolar lavage of the left lower lobe will be sent for microbial cultures and analysis.
[2024-05-01] MEDS: FLUCONAZOLE 100 MG TAB PO SCH (15:36)
--- NOTE | 2024-05-01 16:33 | P.PN ---
Subjective Progress Note Date: 04/30/24 H&P Date: 04/24/24 Chief Complaint: Progressive shortness of breath This is a 54-year-old female with past medical history significant for COPD, DVT, factor V Leiden, hypothyroidism ,recurrent UTI with ESBL, MS, chronic back pain, laminectomy/decompression, fibromyalgia gastroesophageal reflux disease, recently discharged on 04/20/2024 with similar presentation presented to the ER with complaints of progressive shortness of breath, productive cough with yellow sputum, body aches, congestion and fevers. States she did not actually take her temperature. Reports she follows with Dr. Moreno outpatient, pulmonology.Viral studies negative. Chest x-ray reporting right basilar infiltrates, early for bibasilar atelectasis. Procalcitonin pending. On admission afebrile, tachycardic, hypoxic requiring up to 5 L nasal cannula, weaned down to 3 L currently, maintaining O2 sats in the 90s. WBC 26.1, hemoglobin 15.3, platelets 405, INR 0.9, sodium 130, potassium 4, bicarb 29, BUN 18, creatinine 0.98, glucose 153, lactic acid 2, magnesium 1.9, troponins negative x 1, proBNP 325. 04/25/2024 ongoing cough now nonproductive. Maintained on nebulized bronchodilators, Symbicort, IV steroids and antibiotics. Complains of anxiety. breathing improving, decreased wheezing. maintaining O2 sats in the 90s on 3 L nasal cannula. Denies chills or sweats. Procalcitonin normal, 0.11. Afebrile, labs pending, UA not collected yet. 04/29/2024 using BiPAP at night .maintained on nebulized bronchodilators ATC, IV steroids, maintaining O2 sats of 93 to 94% on 2 L nasal cannula. Reports no reserve, exertional shortness of breath. States positive chest pressure from coughing-improving. Denies nausea vomiting or diarrhea. Denies lightheadedness ,dizziness or focal deficits. Denies blurred vision. Evaluated by PT recommending home at [place]. 04/30/2024 reports not sleeping well, bilateral lower extremity achiness. Decreased wheezing. Continues on nebulized bronchodilators ,IV steroids ,maintaining O2 sats in the 90s on 2 L nasal cannula.hyperglycemic with blood sugars in the 200s. Objective - Vital Signs Vital signs: Vital Signs Temp 97.6 F 04/30/24 12:15 Pulse 113 H 04/30/24 12:15 Resp 18 04/30/24 12:15 BP 133/63 04/30/24 12:15 Pulse Ox 93 L 04/30/24 12:15 FiO2 50 04/24/24 23:06 Intake & Output 04/29/24 04/30/24 04/30/24 18:59 06:59 18:59 Intake Total 956 918 Balance 956 918 Weight 110.5 kg 110.5 kg Intake: Oral 956 918 Other: Voiding Method Toilet Toilet Toilet # Voids 2 1 - Exam General: alert and oriented x 3, sitting up in bed, NAD. Vitals reviewed Eyes: PERRL, EOMI, conjunctiva normal HENT: normocephalic, mucus membranes moist Neck: supple, no JVD Lungs: normal respiratory effort, decreased expiratory wheezing CV: Regular rate and rhythm, no murmur. Peripheral pulses 2+ Abdomen: soft, nondistended, no organomegaly. Skin: warm and dry. Neuro: Cranial nerves II through XII grossly intact - Labs CBC & Chem 7: 05/01/24 07:20 05/01/24 07:20 Labs: Abnormal Lab Results - Last 24 Hours (Table) 04/29/24 04/29/24 04/30/24 Range/Units 16:16 20:03 06:29 POC Glucose (mg/dL) 301 H 229 H 220 H (70-110) mg/dL 04/30/24 Range/Units 11:25 POC Glucose (mg/dL) 273 H (70-110) mg/dL Microbiology - Last 24 Hours (Table) 04/26/24 08:34 Blood Culture - Preliminary Blood Assessment and Plan Assessment: Acute COPD, asthma exacerbation , procalcitonin normal, viral studies negative. Per pulmonary no clear indication for pneumonia. Acute on chronic hypoxic respiratory failure secondary to the above. Reports on previous admission, sent home on 2 L nasal cannula O2 Leukocytosis Factor V Leiden, history of Chronic pain syndrome History of osteoarthritis History of multiple sclerosis Morbid obesity, BMI 37 Nicotine dependence Hemoglobin A1c 6.6 Plan: Continue on current medication regimen, monitoring and symptomatic treatment. Maintain aggressive pulmonary toileting with nebulized bronchodilators, Pulmicort, Perforomist, IV steroids. Increase ambulation as tolerated-PT. pulmonary discussing potential bronchoscopy tomorrow. Anticoagulated on Eliquis. ropinul added to med regimen for her achy legs in addition to menthol cream. Levemir ordered with close monitoring of blood sugars. The impression and plan of care has been dictated as directed. : I performed a history and examination of this patient, discussed the same with the dictator. I agree with the dictator's note ,documented as a scribe. Any additional findings or plans will be noted.
--- NOTE | 2024-05-01 16:40 | P.PN ---
Subjective Progress Note Date: 05/01/24 H&P Date: 04/24/24 Chief Complaint: Progressive shortness of breath This is a 54-year-old female with past medical history significant for COPD, DVT, factor V Leiden, hypothyroidism ,recurrent UTI with ESBL, MS, chronic back pain, laminectomy/decompression, fibromyalgia gastroesophageal reflux disease, recently discharged on 04/20/2024 with similar presentation presented to the ER with complaints of progressive shortness of breath, productive cough with yellow sputum, body aches, congestion and fevers. States she did not actually take her temperature. Reports she follows with Dr. Moreno outpatient, pulmonology.Viral studies negative. Chest x-ray reporting right basilar infiltrates, early for bibasilar atelectasis. Procalcitonin pending. On admission afebrile, tachycardic, hypoxic requiring up to 5 L nasal cannula, weaned down to 3 L currently, maintaining O2 sats in the 90s. WBC 26.1, hemoglobin 15.3, platelets 405, INR 0.9, sodium 130, potassium 4, bicarb 29, BUN 18, creatinine 0.98, glucose 153, lactic acid 2, magnesium 1.9, troponins negative x 1, proBNP 325. 04/25/2024 ongoing cough now nonproductive. Maintained on nebulized bronchodilators, Symbicort, IV steroids and antibiotics. Complains of anxiety. breathing improving, decreased wheezing. maintaining O2 sats in the 90s on 3 L nasal cannula. Denies chills or sweats. Procalcitonin normal, 0.11. Afebrile, labs pending, UA not collected yet. 04/29/2024 using BiPAP at night .maintained on nebulized bronchodilators ATC, IV steroids, maintaining O2 sats of 93 to 94% on 2 L nasal cannula. Reports no reserve, exertional shortness of breath. States positive chest pressure from coughing-improving. Denies nausea vomiting or diarrhea. Denies lightheadedness ,dizziness or focal deficits. Denies blurred vision. Evaluated by PT recommending home at [place]. 04/30/2024 reports not sleeping well, bilateral lower extremity achiness. Decreased wheezing. Continues on nebulized bronchodilators ,IV steroids ,maintaining O2 sats in the 90s on 2 L nasal cannula.hyperglycemic with blood sugars in the 200s. 05/01/2024 sugars better controlled on Levemir. Reports breathing better today. maintaining O2 sats to the 90s on 2 L nasal cannula. Congested cough. N.p.o. since midnight for bronchoscopy today with pulmonary. Requesting requesting to exchange her MS Yony for Dilaudid pain control Objective - Vital Signs Vital signs: Vital Signs Temp 98.2 F 05/01/24 15:35 Pulse 88 05/01/24 15:58 Resp 20 05/01/24 15:35 BP 116/74 05/01/24 15:35 Pulse Ox 94 L 05/01/24 15:35 FiO2 50 04/24/24 23:06 Intake & Output 04/30/24 05/01/24 05/01/24 18:59 06:59 18:59 Intake Total 1598 100 Balance 1598 100 Weight 110.5 kg 109.5 kg Intake: IV 100 Oral 1598 Other: Voiding Method Toilet Toilet Toilet # Voids 3 2 1 - Exam General: alert and oriented x 3, sitting up in bed, NAD. Vitals reviewed Eyes: PERRL, EOMI, conjunctiva normal Neck: supple, no JVD Lungs: normal respiratory effort, decreased expiratory wheezing CV: Regular rate and rhythm, no murmur. Peripheral pulses 2+ Abdomen: soft, nondistended, no organomegaly. Skin: warm and dry. Neuro: Cranial nerves II through XII grossly intact - Labs CBC & Chem 7: 05/01/24 07:20 05/01/24 07:20 Labs: Abnormal Lab Results - Last 24 Hours (Table) 04/30/24 04/30/24 05/01/24 Range/Units 16:46 20:10 05:28 WBC (3.8-10.6) k/uL MCV (80.0-100.0) fL MCH (25.0-35.0) pg MCHC (31.0-37.0) g/dL RDW (11.5-15.5) % Neutrophils # (1.3-7.7) k/uL Lymphocytes # (1.0-4.8) k/uL Sodium (137-145) mmol/L Chloride (98-107) mmol/L Carbon Dioxide (22-30) mmol/L BUN (7-17) mg/dL Glucose (74-99) mg/dL POC Glucose (mg/dL) 240 H 259 H 254 H (70-110) mg/dL 05/01/24 05/01/24 05/01/24 Range/Units 07:20 07:20 11:30 WBC 17.9 H (3.8-10.6) k/uL MCV 77.5 L (80.0-100.0) fL MCH 23.8 L (25.0-35.0) pg MCHC 30.7 L (31.0-37.0) g/dL RDW 18.9 H (11.5-15.5) % Neutrophils # 16.9 H (1.3-7.7) k/uL Lymphocytes # 0.4 L (1.0-4.8) k/uL Sodium 134 L (137-145) mmol/L Chloride 97 L (98-107) mmol/L Carbon Dioxide 36 H (22-30) mmol/L BUN 32 H (7-17) mg/dL Glucose 156 H (74-99) mg/dL POC Glucose (mg/dL) 160 H (70-110) mg/dL Assessment and Plan Assessment: Acute COPD, asthma exacerbation , procalcitonin normal, viral studies negative. Per pulmonary no clear indication for pneumonia. Acute on chronic hypoxic respiratory failure secondary to the above. Reports on previous admission, sent home on 2 L nasal cannula O2 Leukocytosis Factor V Leiden, history of Chronic pain syndrome History of osteoarthritis History of multiple sclerosis Morbid obesity, BMI 37 Nicotine dependence Hemoglobin A1c 6.6 Plan: Continue on current medication regimen, monitoring and symptomatic treatment. N.p.o. for upcoming bronchoscopy. Pain management adjusted as per patient's request. Additional Levemir ordered for at bedtime as well for tighter blood sugar control with close monitoring of blood sugars. The impression and plan of care has been dictated as directed. : I performed a history and examination of this patient, discussed the same with the dictator. I agree with the dictator's note ,documented as a scribe. Any additional findings or plans will be noted.
[2024-05-01 16:44] LABS: Glucose,Whole Blood 257 mg/dL (70-110)
[2024-05-01 19:48] LABS: Glucose,Whole Blood 292 mg/dL (70-110)
[2024-05-01] MEDS: INSULIN DETEMIR (LEVEMIR) 100 UNIT/ML SYR SQ SCH (20:42)
[2024-05-01 21:19] LABS: Appearance,BF Turbid (Clear); RBC, Body Fluid 38250 /UL (0-2000)
[2024-05-02 05:47] LABS: Glucose,Whole Blood 133 mg/dL (70-110)
[2024-05-02 09:19] LABS: Nucleated Cells, Body Fluid 1400 /UL
[2024-05-02 11:31] LABS: Glucose,Whole Blood 111 mg/dL (70-110)
--- NOTE | 2024-05-02 14:26 | P.PN ---
Subjective Progress Note Date: 05/02/24 Patient is a 54-year-old white female with past medical history significant for asthma/COPD, DVT, factor V Leyden, hyperlipidemia, hypothyroidism, among other things. Her supervisor line department is Dr. Tay Moreno. Of note, patient states that she was recently discharged from the hospital and treated for COPD. She was treated with antibiotics during this hospitalization. Discharged with oxygen approximately 1 week ago. Patient returned to the emergency department yesterday evening in respiratory distress. She was hypoxic and initially placed on BiPAP with settings 10/5 and FiO2 50%. Currently, she remains in the emergency department, in no apparent distress at this time. On 5 L/min nasal cannula. SpO2 92%. Over the last week she has progressively become more short of breath. She has had subjective fevers, productive cough with yellow to green sputum production. Cough is persistent and she has some chest soreness associated with coughing and deep breathing. Denies hemoptysis. She has had reduced appetite and nausea. No actual vomiting, abdominal pain, diarrhea. Chest x-ray showing mild bibasilar infiltrates. CBC: WBC count 26.1, hemoglobin 15.3, hematocrit 47.6, platelets 405. CMP: Sodium 130, potassium 4, chloride 93, serum bicarb 29, BUN 18, creatinine 0.98, glucose 153. LFTs unremarkable. Troponin less than 0.012. NT proBNP 325. EKG showing sinus tachycardia with nonspecific T wave abnormalities. Denies missing any doses of Eliquis. Negative for influenza, RSV, COVID. Currently covered on a combination of azithromycin and cefepime. Currently afebrile. She is waiting for a bed on the stepdown unit. Progress note dated April 25, 2024. This is a 54-year-old female seen yesterday in consultation. The patient complains of shortness of breath, and a history of asthma/COPD. The patient typically sees the other supervisor line department in town. She presented with complaints of fever, productive cough, yellow phlegm production, as well as chest congestion. Chest x-ray suggested either infiltrates or atelectasis at the bases. The patient's procalcitonin level was normal at 0.11. All antibiotics will be discontinued. She continues on oxygen by nasal cannula at 4 L. She is not receiving any IV fluids. Current laboratory data includes a white count 27.8, hemoglobin 12.3, hematocrit 40.2, and a platelet count of 329,000. Sodium 133, potassium 4.5, chlorides 100, CO2 29, BUN 15, creatinine 0.64. Glucose is 189. Calcium is 8.9. Progress note dated April 26, 2024. 54-year-old female seen today in room 366. The patient states that she is not feeling much improved, in regards to her shortness of breath. She is not receiving any IV fluids. She is on O2 at 4 L. She did not use a BiPAP device last night. Her procalcitonin level was 0.11. We will change her Symbicort to budesonide and formoterol. We will order a follow-up chest x-ray. No new labs today, other than a glucose of 192. Progress note dated April 27, 2024. This is a 54-year-old female who typically sees the other supervisor line department, over at [facility]. The patient was admitted with a diagnosis of COPD exacerbation. She had a repeat chest x-ray yesterday, that was normal. Procalcitonin level was 0.11. She is on 3 L of oxygen. No IV fluids. Despite excellent medications, she continues to state that she is not feeling any better. She wishes to have a CT scan ordered. I do not believe this and need for CT scan at this time. If the primary service wants to order a CT scan, that would be okay. No new labs today other than a glucose of 195. Progress note dated April 28, 2024. 54-year-old female admitted with a diagnosis of COPD exacerbation. Clinically, she is improved. Chest x-ray is stable. Procalcitonin level was normal. She is on appropriate medications including updrafts with albuterol sulfate ipratropium bromide, Pulmicort 1 mg, formoterol 20 mcg, and Solu-Medrol, 60 mg every 6 hours. Current labs include a white count of 17.5, hemoglobin 12.1, hematocrit 39.1, and a platelet count of 202,000. Sodium 135, potassium 4.1, chloride 98, CO2 34, BUN 28, creatinine 0.71. Glucose is 194. Calcium is 8.8. On today's evaluation of 04/29/2024, the patient is being seen for a follow-up., Comfortable, was positioned on a bedside recliner. No significant shortness of breath at rest. She is having some cough and congestion and she remains on oxygen 2 L/min nasal cannula. Remains on bronchodilators. Remains on DuoNeb nebulized treatments [id number]. Remains on budesonide and Perforomist nebulized treatments twice a day and IV Solu-Medrol 60 mg every 6 hours. The patient is currently not receiving any antibiotics. The most recent chest x-ray from 04/26/2024 showed no acute cardiopulmonary process. Labs from yesterday was noted. The white cell count was dropping down to 17.5 with a hemoglobin 4.1 and a platelet count of 202. BUN is 29 with a creatinine of 0.7 and sodium is at 135 with a potassium level of 4.1. Procalcitonin level has been essentially within normal limits. Patient is very much weak and debilitated. 04/30/2024, the patient is being seen for a follow-up. Patient is less bronchospastic and wheezy on today's evaluation. No significant complaints. She continues to have a congested cough, unable to bring out sputum. She remains on Solu-Medrol 40 mg every 6 hours. She remains on DuoNeb nebulized treatments [id number]. Rest of the medications remain unchanged. Blood sugar today is at 259. No other new labs are available. Procalcitonin level is at 0.04. Chest x-ray at the time of admission and subsequent chest x-ray from 04/26/2024 showed no evidence of any pneumonia. Oxygenation is stable and the patient is currently on 2 L of O2 nasal cannula with a pulse ox of 94%. 05/01/2024, seen the patient for a follow-up. The patient is still congested and wheezy. She is currently n.p.o. awaiting a bronchoscopy for therapeutic airway suctioning and a bronchial lavage. She remains on same regimen of bronchodilators. She remains on DuoNeb nebulized treatments [id number], she remains on a Perforomist and Pulmicort nebulized treatments twice a day and IV Solu-Medrol 40 g every 6 hours. Rest of the medications remain unchanged. Labs from today shows a WBC count 17.9 with a hemoglobin 11.7 and platelet count of 227. BUN 32 with a creatinine of 0.59 and sodium levels at 134. Serum bicarb is at 36. In terms of oxygenation, the patient is on 3 L of oxygen by nasal cannula with a pulse ox of 93%. She remains on insulin, Levemir 15 units daily and NovoLog sliding scale coverage. 05/02/2024, the patient is being seen for a follow-up. The patient is doing better compared to yesterday. Bronchoscopy endobronchial lavage was done and the culture still pending for now. Copious amount of respiratory secretion was identified and they were suctioned out. A bronchial lavage was also done. The patient was also started on Diflucan regarding oropharyngeal candidiasis. Pulse ox is in the order of 94% on 2 L of oxygen by nasal cannula. Feels somewhat better compared to yesterday. She remains on DuoNeb nebulized treatments on the clock, she remains on Diflucan, she remains on systemic steroids with Solu- Medrol 40 mg every 6 hours. Rest of the medications remain unchanged. Objective - Vital Signs Vital signs: Vital Signs Temp 98.2 F 05/02/24 11:35 Pulse 94 05/02/24 11:35 Resp 16 05/02/24 11:35 BP 119/78 05/02/24 11:35 Pulse Ox 94 L 05/02/24 11:35 FiO2 50 04/24/24 23:06 Intake & Output 05/01/24 05/02/24 05/02/24 18:59 06:59 18:59 Intake Total 580 1000 Balance 580 1000 Weight 107.5 kg Intake: IV 100 Oral 480 1000 Other: Voiding Method Toilet Toilet Toilet # Voids 1 1 2 - Exam No acute distress, oriented 3. Currently on 2 L, the patient has no signs of respiratory distress while at rest Head exam was generally normal. There was no scleral icterus or corneal arcus. Mucous membranes were moist. HEENT examination is grossly unremarkable. Mucous membranes are moist. No oral lesions. Neck supple. Full range of motion. No adenopathy thyromegaly or neck vein distention. Cardiovascular examination reveals regular rhythm rate. S1-S2 normal. No S3 or S4. No discernible murmur noted. Heart sounds are distant. Lungs reveal mild bilateral wheezes and rhonchi. No crackles. Breath sounds are quite diminished bilaterally and the patient is scheduled for wheezes throughout the lung washburn bilaterally. Abdomen soft bowel sounds are heard. No masses or tenderness. Extremities are intact. No cyanosis clubbing or edema. Skin is without rash or lesion. Neurologic examination is brief but nonfocal. - Labs CBC & Chem 7: 05/01/24 07:20 05/01/24 07:20 Labs: Abnormal Lab Results - Last 24 Hours (Table) 05/01/24 05/01/24 05/01/24 Range/Units 12:00 12:00 16:43 POC Glucose (mg/dL) 257 H (70-110) mg/dL Fluid Appearance Turbid A (Clear) Fluid RBC 06772 H (0-2000) /uL Rhinovirus (PCR) DETECTED A (Not detected) 05/01/24 05/02/24 05/02/24 Range/Units 19:46 05:46 11:23 POC Glucose (mg/dL) 292 H 133 H 111 H (70-110) mg/dL Fluid Appearance (Clear) Fluid RBC (0-2000) /uL Rhinovirus (PCR) (Not detected) Microbiology - Last 24 Hours (Table) 05/01/24 12:00 Gram Stain - Preliminary Bronchoalviolar Lavage - Left Bronchial Washings Culture - Preliminary 04/26/24 08:34 Blood Culture - Final Blood Assessment and Plan Plan: Acute COPD/asthma exacerbation, clinically improving and the patient is lysing BiPAP overnight and currently in oxygen at 2 L/min nasal cannula. No signs of any respite distress at rest, at rest, nevertheless, the patient remains actively bronchospastic and wheezy and this is her second admission over the past 3 to 4 weeks. Chest x-ray history of an acute pulmonary process. The patient remains on mucolytic's and steroids. The patient is status post bronchoscopy that was done on 05/01/2024 with a bronchial lavage of the left lower lobe. Respiratory status improved following the bronchoscopy, pending further cultures. Acute on chronic hypoxic respiratory failure, currently on 2 L of O2 nasal cannula Acute leukocytosis, improving and the procalcitonin level is 0.04, the white cell count is improving History of DVT. History of factor V Leyden. History of multiple sclerosis. Chronic pain. Chronic ongoing tobacco dependence. Chronic debility secondary above-mentioned comorbidities Obesity with some cushingoid features related to chronic steroid use History of adrenal insufficiency Oropharyngeal and laryngeal candidiasis Plan: Bronchoscopy was completed pending results of the bronchial lavage Diflucan was added regarding significant oropharyngeal candidiasis and laryngeal candidiasis. She remains on bronchodilators and steroids. Slow and ongoing improvement despite aggressive bronchodilators and steroid regimen. Oxygen requirements of 2 L/min nasal cannula. Continue same treatment for now. Keep steroids at the same dose. Continue rest of bronchodilators. Continued anticoagulation with Eliquis IV fluids to KVO. Aggressive pulmonary toileting and use of incentive spirometer. Will continue to follow.
[2024-05-02 16:21] LABS: Glucose,Whole Blood 96 mg/dL (70-110)
--- NOTE | 2024-05-02 16:45 | P.PN ---
Subjective Progress Note Date: 05/02/24 H&P Date: 04/24/24 Chief Complaint: Progressive shortness of breath This is a 54-year-old female with past medical history significant for COPD, DVT, factor V Leiden, hypothyroidism ,recurrent UTI with ESBL, MS, chronic back pain, laminectomy/decompression, fibromyalgia gastroesophageal reflux disease, recently discharged on 04/20/2024 with similar presentation presented to the ER with complaints of progressive shortness of breath, productive cough with yellow sputum, body aches, congestion and fevers. States she did not actually take her temperature. Reports she follows with Dr. Moreno outpatient, pulmonology.Viral studies negative. Chest x-ray reporting right basilar infiltrates, early for bibasilar atelectasis. Procalcitonin pending. On admission afebrile, tachycardic, hypoxic requiring up to 5 L nasal cannula, weaned down to 3 L currently, maintaining O2 sats in the 90s. WBC 26.1, hemoglobin 15.3, platelets 405, INR 0.9, sodium 130, potassium 4, bicarb 29, BUN 18, creatinine 0.98, glucose 153, lactic acid 2, magnesium 1.9, troponins negative x 1, proBNP 325. 04/25/2024 ongoing cough now nonproductive. Maintained on nebulized bronchodilators, Symbicort, IV steroids and antibiotics. Complains of anxiety. breathing improving, decreased wheezing. maintaining O2 sats in the 90s on 3 L nasal cannula. Denies chills or sweats. Procalcitonin normal, 0.11. Afebrile, labs pending, UA not collected yet. 04/29/2024 using BiPAP at night .maintained on nebulized bronchodilators ATC, IV steroids, maintaining O2 sats of 93 to 94% on 2 L nasal cannula. Reports no reserve, exertional shortness of breath. States positive chest pressure from coughing-improving. Denies nausea vomiting or diarrhea. Denies lightheadedness ,dizziness or focal deficits. Denies blurred vision. Evaluated by PT [facility] 04/30/2024 reports not sleeping well, bilateral lower extremity achiness. Decreased wheezing. Continues on nebulized bronchodilators ,IV steroids ,maintaining O2 sats in the 90s on 2 L nasal cannula.hyperglycemic with blood sugars in the 200s. 05/01/2024 sugars better controlled on Levemir. Reports breathing better today. maintaining O2 sats to the 90s on 2 L nasal cannula. Congested cough. N.p.o. since midnight for bronchoscopy today with pulmonary. Requesting requesting to exchange her MS Yony for Dilaudid pain control 05/02/2024 status post bronchoscopy yesterday reporting candidiasis involving the oropharyngeal and laryngeal structures, copious retained secretions within the patient's airways, ruling out tracheobronchitis. Diflucan initiated. cultures pending. Continues on [id number] nebulized bronchodilators, IV steroids, breathing much easier today, maintaining O2 sats in the 90s on 2 L nasal cannula. Objective - Vital Signs Vital signs: Vital Signs Temp 98.4 F 05/02/24 07:57 Pulse 91 05/02/24 07:57 Resp 16 05/02/24 07:57 BP 131/72 05/02/24 07:57 Pulse Ox 94 L 05/02/24 07:57 FiO2 50 04/24/24 23:06 Intake & Output 05/01/24 05/02/24 05/02/24 18:59 06:59 18:59 Intake Total 580 Balance 580 Weight 107.5 kg Intake: IV 100 Oral 480 Other: Voiding Method Toilet Toilet # Voids 1 1 - Exam General: alert and oriented x 3, sitting up in bed, NAD. Vitals reviewed Eyes: PERRL, EOMI, conjunctiva normal Neck: supple, no JVD Lungs: normal respiratory effort, mild expiratory wheezing CV: Regular rate and rhythm, no murmur. Peripheral pulses 2+ Abdomen: soft, nondistended, no organomegaly. Skin: warm and dry. Neuro: Cranial nerves II through XII grossly intact - Labs CBC & Chem 7: 05/01/24 07:20 05/01/24 07:20 Labs: Abnormal Lab Results - Last 24 Hours (Table) 05/01/24 05/01/24 05/01/24 Range/Units 11:30 12:00 16:43 POC Glucose (mg/dL) 160 H 257 H (70-110) mg/dL Fluid Appearance Turbid A (Clear) 05/01/24 05/02/24 Range/Units 19:46 05:46 POC Glucose (mg/dL) 292 H 133 H (70-110) mg/dL Fluid Appearance (Clear) Microbiology - Last 24 Hours (Table) 04/26/24 08:34 Blood Culture - Final Blood Assessment and Plan Assessment: Acute COPD, asthma exacerbation , procalcitonin normal, viral studies negative. Per pulmonary no clear indication for pneumonia. Status post bronchoscopy. Oral and laryngeal candidiasis. Cultures pending. Acute on chronic hypoxic respiratory failure secondary to the above. Reports on previous admission, sent home on 2 L nasal cannula O2 Leukocytosis Factor V Leiden, history of Chronic pain syndrome History of osteoarthritis History of multiple sclerosis Morbid obesity, BMI 37 Nicotine dependence Hemoglobin A1c 6.6 Plan: Continue on current medication regimen, monitoring and symptomatic treatment. Diflucan. aggressive pulmonary toileting, nebulized bronchodilators ,titration of steroids as per pulmonary, incentive spirometer reinforced,increase ambulation as tolerated. Pain management discussed with patient as she continues to request increased Dilaudid. No increase given, explained high risk for respiratory depressant. The impression and plan of care has been dictated as directed. : I performed a history and examination of this patient, discussed the same with the dictator. I agree with the dictator's note ,documented as a scribe. Any additional findings or plans will be noted.
[2024-05-02 19:59] LABS: Glucose,Whole Blood 174 mg/dL (70-110)
[2024-05-03 05:43] LABS: Glucose,Whole Blood 97 mg/dL (70-110)
[2024-05-03] MEDS: diphenhydrAMINE 25 MG CAP PO SCH (08:12)
[2024-05-03] MEDS: predniSONE 20 MG TAB PO SCH (08:31)
[2024-05-03 11:41] LABS: Glucose,Whole Blood 74 mg/dL (70-110)
--- NOTE | 2024-05-03 13:00 | P.PN ---
Subjective Progress Note Date: 05/03/24 Patient is a 54-year-old white female with past medical history significant for asthma/COPD, DVT, factor V Leyden, hyperlipidemia, hypothyroidism, among other things. Her nut process helper is Dr. Tay Moreno. Of note, patient states that she was recently discharged from the hospital and treated for COPD. She was treated with antibiotics during this hospitalization. Discharged with oxygen approximately 1 week ago. Patient returned to the emergency department yesterday evening in respiratory distress. She was hypoxic and initially placed on BiPAP with settings 10/5 and FiO2 50%. Currently, she remains in the emergency department, in no apparent distress at this time. On 5 L/min nasal cannula. SpO2 92%. Over the last week she has progressively become more short of breath. She has had subjective fevers, productive cough with yellow to green sputum production. Cough is persistent and she has some chest soreness associated with coughing and deep breathing. Denies hemoptysis. She has had reduced appetite and nausea. No actual vomiting, abdominal pain, diarrhea. Chest x-ray showing mild bibasilar infiltrates. CBC: WBC count 26.1, hemoglobin 15.3, hematocrit 47.6, platelets 405. CMP: Sodium 130, potassium 4, chloride 93, serum bicarb 29, BUN 18, creatinine 0.98, glucose 153. LFTs unremarkable. Troponin less than 0.012. NT proBNP 325. EKG showing sinus tachycardia with nonspecific T wave abnormalities. Denies missing any doses of Eliquis. Negative for influenza, RSV, COVID. Currently covered on a combination of azithromycin and cefepime. Currently afebrile. She is waiting for a bed on the stepdown unit. Progress note dated April 25, 2024. This is a 54-year-old female seen yesterday in consultation. The patient complains of shortness of breath, and a history of asthma/COPD. The patient typically sees the other nut process helper in town. She presented with complaints of fever, productive cough, yellow phlegm production, as well as chest congestion. Chest x-ray suggested either infiltrates or atelectasis at the bases. The patient's procalcitonin level was normal at 0.11. All antibiotics will be discontinued. She continues on oxygen by nasal cannula at 4 L. She is not receiving any IV fluids. Current laboratory data includes a white count 27.8, hemoglobin 12.3, hematocrit 40.2, and a platelet count of 329,000. Sodium 133, potassium 4.5, chlorides 100, CO2 29, BUN 15, creatinine 0.64. Glucose is 189. Calcium is 8.9. Progress note dated April 26, 2024. 54-year-old female seen today in room 366. The patient states that she is not feeling much improved, in regards to her shortness of breath. She is not receiving any IV fluids. She is on O2 at 4 L. She did not use a BiPAP device last night. Her procalcitonin level was 0.11. We will change her Symbicort to budesonide and formoterol. We will order a follow-up chest x-ray. No new labs today, other than a glucose of 192. Progress note dated April 27, 2024. This is a 54-year-old female who typically sees the other nut process helper, over at [facility]. The patient was admitted with a diagnosis of COPD exacerbation. She had a repeat chest x-ray yesterday, that was normal. Procalcitonin level was 0.11. She is on 3 L of oxygen. No IV fluids. Despite excellent medications, she continues to state that she is not feeling any better. She wishes to have a CT scan ordered. I do not believe this and need for CT scan at this time. If the primary service wants to order a CT scan, that would be okay. No new labs today other than a glucose of 195. Progress note dated April 28, 2024. 54-year-old female admitted with a diagnosis of COPD exacerbation. Clinically, she is improved. Chest x-ray is stable. Procalcitonin level was normal. She is on appropriate medications including updrafts with albuterol sulfate ipratropium bromide, Pulmicort 1 mg, formoterol 20 mcg, and Solu-Medrol, 60 mg every 6 hours. Current labs include a white count of 17.5, hemoglobin 12.1, hematocrit 39.1, and a platelet count of 202,000. Sodium 135, potassium 4.1, chloride 98, CO2 34, BUN 28, creatinine 0.71. Glucose is 194. Calcium is 8.8. On today's evaluation of 04/29/2024, the patient is being seen for a follow-up., Comfortable, was positioned on a bedside recliner. No significant shortness of breath at rest. She is having some cough and congestion and she remains on oxygen 2 L/min nasal cannula. Remains on bronchodilators. Remains on DuoNeb nebulized treatments [id number]. Remains on budesonide and Perforomist nebulized treatments twice a day and IV Solu-Medrol 60 mg every 6 hours. The patient is currently not receiving any antibiotics. The most recent chest x-ray from 04/26/2024 showed no acute cardiopulmonary process. Labs from yesterday was noted. The white cell count was dropping down to 17.5 with a hemoglobin 4.1 and a platelet count of 202. BUN is 29 with a creatinine of 0.7 and sodium is at 135 with a potassium level of 4.1. Procalcitonin level has been essentially within normal limits. Patient is very much weak and debilitated. 04/30/2024, the patient is being seen for a follow-up. Patient is less bronchospastic and wheezy on today's evaluation. No significant complaints. She continues to have a congested cough, unable to bring out sputum. She remains on Solu-Medrol 40 mg every 6 hours. She remains on DuoNeb nebulized treatments [id number]. Rest of the medications remain unchanged. Blood sugar today is at 259. No other new labs are available. Procalcitonin level is at 0.04. Chest x-ray at the time of admission and subsequent chest x-ray from 04/26/2024 showed no evidence of any pneumonia. Oxygenation is stable and the patient is currently on 2 L of O2 nasal cannula with a pulse ox of 94%. 05/01/2024, seen the patient for a follow-up. The patient is still congested and wheezy. She is currently n.p.o. awaiting a bronchoscopy for therapeutic airway suctioning and a bronchial lavage. She remains on same regimen of bronchodilators. She remains on DuoNeb nebulized treatments [id number], she remains on a Perforomist and Pulmicort nebulized treatments twice a day and IV Solu-Medrol 40 g every 6 hours. Rest of the medications remain unchanged. Labs from today shows a WBC count 17.9 with a hemoglobin 11.7 and platelet count of 227. BUN 32 with a creatinine of 0.59 and sodium levels at 134. Serum bicarb is at 36. In terms of oxygenation, the patient is on 3 L of oxygen by nasal cannula with a pulse ox of 93%. She remains on insulin, Levemir 15 units daily and NovoLog sliding scale coverage. 05/02/2024, the patient is being seen for a follow-up. The patient is doing better compared to yesterday. Bronchoscopy endobronchial lavage was done and the culture still pending for now. Copious amount of respiratory secretion was identified and they were suctioned out. A bronchial lavage was also done. The patient was also started on Diflucan regarding oropharyngeal candidiasis. Pulse ox is in the order of 94% on 2 L of oxygen by nasal cannula. Feels somewhat better compared to yesterday. She remains on DuoNeb nebulized treatments on the clock, she remains on Diflucan, she remains on systemic steroids with Solu- Medrol 40 mg every 6 hours. Rest of the medications remain unchanged. 05/03/2024, the patient is being seen for a follow-up. Patient is feeling better and the patient is currently on room air oxygen. The bronchoscope endobronchial lavage that was done earlier showed no microbial growth in the bronchial washings endobronchial lavage shows no microbial growth. Rare gram-positive cocci, few yeast, few gram-positive bacilli. Cultures are still negative for now. Remains on nystatin. Remains on oral Diflucan. The patient was taken off the IV Solu-Medrol started on a prednisone burst taper. No new labs are available from today. Less bronchospastic and wheezy compared to yesterday. No other new complaints otherwise for now. Her condition is essentially stable for now. She is concerned about steroid allergy and the patient is on Benadryl. Objective - Vital Signs Vital signs: Vital Signs Temp 98.3 F 05/03/24 08:00 Pulse 88 05/03/24 12:00 Resp 20 05/03/24 12:00 BP 92/63 05/03/24 12:00 Pulse Ox 90 L 05/03/24 12:00 FiO2 50 04/24/24 23:06 Intake & Output 05/02/24 05/03/24 05/03/24 18:59 06:59 18:59 Intake Total 1480 540 600 Balance 1480 540 600 Weight 107 kg Intake: Oral 1480 540 600 Other: Voiding Method Toilet Toilet Toilet # Voids 1 2 2 - Exam No acute distress, oriented 3. Currently on room air oxygen, the patient has no signs of respiratory distress while at rest Head exam was generally normal. There was no scleral icterus or corneal arcus. Mucous membranes were moist. HEENT examination is grossly unremarkable. Mucous membranes are moist. No oral lesions. Neck supple. Full range of motion. No adenopathy thyromegaly or neck vein distention. Cardiovascular examination reveals regular rhythm rate. S1-S2 normal. No S3 or S4. No discernible murmur noted. Heart sounds are distant. Lungs reveal mild bilateral wheezes and rhonchi. No crackles. Breath sounds are quite diminished bilaterally and the patient is scheduled for wheezes thr oughout the lung washburn bilaterally. Abdomen soft bowel sounds are heard. No masses or tenderness. Extremities are intact. No cyanosis clubbing or edema. Skin is without rash or lesion. Neurologic examination is brief but nonfocal. - Labs CBC & Chem 7: 05/01/24 07:20 05/01/24 07:20 Labs: Abnormal Lab Results - Last 24 Hours (Table) 05/02/24 Range/Units 19:57 POC Glucose (mg/dL) 174 H (70-110) mg/dL Microbiology - Last 24 Hours (Table) 05/01/24 12:00 Acid Fast Bacilli Smear - Preliminary Bronchoalviolar Lavage - Left 05/01/24 12:00 Gram Stain - Preliminary Bronchoalviolar Lavage - Left Bronchial Washings Culture - Preliminary Assessment and Plan Plan: Acute COPD/asthma exacerbation, clinically improving and the patient is lysing BiPAP overnight and currently in oxygen at room air no signs of any respite distress at rest, at rest, nevertheless, the patient remains actively bronchospastic and wheezy and this is her second admission over the past 3 to 4 weeks. Chest x-ray history of an acute pulmonary process. The patient remains on mucolytic's and steroids. The patient is status post bronchoscopy that was done on 05/01/2024 with a bronchial lavage of the left lower lobe. Respiratory status improved following the bronchoscopy, pending further cultures. Noted the cultures have not shown any micro microbial growth and the patient is clinically stable and improving. Acute on chronic hypoxic respiratory failure, currently on room air oxygen Acute leukocytosis, improving and the procalcitonin level is 0.04, the white cell count is improving History of DVT. History of factor V Leyden. History of multiple sclerosis. Chronic pain. Chronic ongoing tobacco dependence. Chronic debility secondary above-mentioned comorbidities Obesity with some cushingoid features related to chronic steroid use History of adrenal insufficiency Oropharyngeal and laryngeal candidiasis Plan: Bronchoscopy was completed pending results of the bronchial lavage, currently the cultures are negative Diflucan for oropharyngeal candidiasis and laryngeal candidiasis. She remains on bronchodilators and steroids. Solu-Medrol has been discontinued and the patient is currently on a prednisone burst taper starting with 40 mg continue rest of bronchodilators. Continued anticoagulation with Eliquis IV fluids to KVO. Aggressive pulmonary toileting and use of incentive spirometer. Will continue to follow.
[2024-05-03] MEDS: HYDROmorphone 1 MG/ML 1 ML SYRINGE IVP PRN (15:49)
--- NOTE | 2024-05-03 16:45 | P.PN ---
Subjective Progress Note Date: 05/03/24 Interval History: This is a 54-year-old female with past medical history significant for COPD, DVT, factor V Leiden, hypothyroidism ,recurrent UTI with ESBL, MS, chronic back pain, laminectomy/decompression, fibromyalgia gastroesophageal reflux disease, recently discharged on 04/20/2024 with similar presentation presented to the ER with complaints of progressive shortness of breath, productive cough with yellow sputum, body aches, congestion and fevers. States she did not actually take her temperature. Reports she follows with Dr. Moreno outpatient, pulmonology.Viral studies negative. Chest x-ray reporting right basilar infiltrates, early for bibasilar atelectasis. Procalcitonin pending. On admission afebrile, tachycardic, hypoxic requiring up to 5 L nasal cannula, weaned down to 3 L currently, maintaining O2 sats in the 90s. WBC 26.1, hemoglobin 15.3, platelets 405, INR 0.9, sodium 130, potassium 4, bicarb 29, BUN 18, creatinine 0.98, glucose 153, lactic acid 2, magnesium 1.9, troponins negative x 1, proBNP 325. 04/25/2024 ongoing cough now nonproductive. Maintained on nebulized bronchodilators, Symbicort, IV steroids and antibiotics. Complains of anxiety. breathing improving, decreased wheezing. maintaining O2 sats in the 90s on 3 L nasal cannula. Denies chills or sweats. Procalcitonin normal, 0.11. Afebrile, labs pending, UA not collected yet. 04/29/2024 using BiPAP at night .maintained on nebulized bronchodilators ATC, IV steroids, maintaining O2 sats of 93 to 94% on 2 L nasal cannula. Reports no reserve, exertional shortness of breath. States positive chest pressure from coughing-improving. Denies nausea vomiting or diarrhea. Denies lightheadedness ,dizziness or focal deficits. Denies blurred vision. Evaluated by PT recommending home at [place]. 04/30/2024 reports not sleeping well, bilateral lower extremity achiness. Decreased wheezing. Continues on nebulized bronchodilators ,IV steroids ,maintaining O2 sats in the 90s on 2 L nasal cannula.hyperglycemic with blood sugars in the 200s. 05/01/2024 sugars better controlled on Levemir. Reports breathing better today. maintaining O2 sats to the 90s on 2 L nasal cannula. Congested cough. N.p.o. since midnight for bronchoscopy today with pulmonary. Requesting requesting to exchange her MS Contin for Dilaudid pain control 05/02/2024 status post bronchoscopy yesterday reporting candidiasis involving the oropharyngeal and laryngeal structures, copious retained secretions within the patient's airways, ruling out tracheobronchitis. Diflucan initiated. cultures pending. Continues on [id number] nebulized bronchodilators, IV steroids, breathing much easier today, maintaining O2 sats in the 90s on 2 L nasal cannula. 05/03/2024--- patient was seen and examined today. Patient feeling better, currently on room air. BAL showed no growth so far. Endobronchial washings showing no microbial growth. Currently on statin, oral Diflucan, has been taken off IV Solu-Medrol and started on prednisone burst taper per pulmonary. Wheezing is improving. Assessment and plan: Acute COPD, asthma exacerbation , procalcitonin normal, viral studies negative. Per pulmonary no clear indication for pneumonia. Status post bronchoscopy. Oral and laryngeal candidiasis. Cultures pending. Acute on chronic hypoxic respiratory failure secondary to the above. Reports on previous admission, sent home on 2 L nasal cannula O2 Leukocytosis Factor V Leiden, history of Chronic pain syndrome History of osteoarthritis History of multiple sclerosis Morbid obesity, BMI 37 Nicotine dependence Hemoglobin A1c 6.6 Plan: Continue on current medication regimen, monitoring and symptomatic treatment. Diflucan. aggressive pulmonary toileting, nebulized bronchodilators ,titration of steroids as per pulmonary, incentive spirometer reinforced,increase ambulation as tolerated. Pain management discussed with patient as she continues to request increased Dilaudid. No increase given, explained high risk for respiratory depressant. Pulmonary consulted and following. Continue Eliquis Nystatin, Diflucan. Continue inhaler/prednisone DVT prophylaxis: AC PHYSICAL EXAMINATION: GENERAL: The patient is A&O x3, NAD HEENT: EOMI, Sclerae anicteric, Moist Mucous membranes Neck: Supple, Non tender, No JVD PULMONARY: Decreased breath souds B/L, + wheezing, No crackles. CARDIOVASCULAR: S1, S2 present. No murmurs, rubs, or gallops. ABDOMEN: Soft, nontender, nondistended, normoactive bowel sounds. No guarding or rebound tenderness. MUSCULOSKELETAL: No edema, No cyanosis. No clubbing. Normal ROM. Intact peripheral pulses. EXTREMITIES: No cyanosis, clubbing, or pedal edema. NEUROLOGICAL: CN 2-12 grossly intact. No FND Skin: No Rash REVIEW OF SYSTEMS: CONSTITUTIONAL: No fever or chills. CARDIOVASCULAR: No chest pain, palpitations or syncope. PULMONARY: No shortness of breath, no cough, sore throat. GASTROINTESTINAL: No nausea, vomiting, diarrhea, abdominal pain. : No Dysuria, urgency, frequency. Extremities: No edema. NEUROLOGICAL: No headaches, no weakness, or numbness Dictation was produced using [employer] dictation software. please excuse any grammatical, word or spelling errors. Objective - Vital Signs Vital signs: Vital Signs Temp 98.4 F 05/03/24 16:00 Pulse 92 05/03/24 16:28 Resp 18 05/03/24 16:00 BP 94/62 05/03/24 16:00 Pulse Ox 93 L 05/03/24 16:00 FiO2 50 04/24/24 23:06 Intake & Output 05/02/24 05/03/24 05/03/24 18:59 06:59 18:59 Intake Total 5666 365 2917 Balance 5211 123 9994 Weight 107 kg Intake: Oral 3770 630 8812 Other: Voiding Method Toilet Toilet Toilet # Voids 1 2 2 - Labs CBC & Chem 7: 05/01/24 07:20 05/01/24 07:20 Labs: Abnormal Lab Results - Last 24 Hours (Table) 05/02/24 Range/Units 19:57 POC Glucose (mg/dL) 174 H (70-110) mg/dL Microbiology - Last 24 Hours (Table) 05/01/24 12:00 Gram Stain - Preliminary Bronchoalviolar Lavage - Left Bronchial Washings Culture - Preliminary Gram Neg Bacilli 05/01/24 12:00 Acid Fast Bacilli Smear - Preliminary Bronchoalviolar Lavage - Left
[2024-05-03 16:52] LABS: Glucose,Whole Blood 250 mg/dL (70-110)
[2024-05-03 19:56] LABS: Glucose,Whole Blood 224 mg/dL (70-110)
[2024-05-04 05:17] LABS: Glucose,Whole Blood 146 mg/dL (70-110)
[2024-05-04 12:17] LABS: Glucose,Whole Blood 170 mg/dL (70-110)
--- NOTE | 2024-05-04 12:30 | P.PN ---
Subjective Progress Note Date: 05/04/24 Patient is a 54-year-old white female with past medical history significant for asthma/COPD, DVT, factor V Leyden, hyperlipidemia, hypothyroidism, among other things. Her waste treatment operator is Dr. Tay Moreno. Of note, patient states that she was recently discharged from the hospital and treated for COPD. She was treated with antibiotics during this hospitalization. Discharged with oxygen approximately 1 week ago. Patient returned to the emergency department yesterday evening in respiratory distress. She was hypoxic and initially placed on BiPAP with settings 10/5 and FiO2 50%. Currently, she remains in the emergency department, in no apparent distress at this time. On 5 L/min nasal cannula. SpO2 92%. Over the last week she has progressively become more short of breath. She has had subjective fevers, productive cough with yellow to green sputum production. Cough is persistent and she has some chest soreness associated with coughing and deep breathing. Denies hemoptysis. She has had reduced appetite and nausea. No actual vomiting, abdominal pain, diarrhea. Chest x-ray showing mild bibasilar infiltrates. CBC: WBC count 26.1, hemoglobin 15.3, hematocrit 47.6, platelets 405. CMP: Sodium 130, potassium 4, chloride 93, serum bicarb 29, BUN 18, creatinine 0.98, glucose 153. LFTs unremarkable. Troponin less than 0.012. NT proBNP 325. EKG showing sinus tachycardia with nonspecific T wave abnormalities. Denies missing any doses of Eliquis. Negative for influenza, RSV, COVID. Currently covered on a combination of azithromycin and cefepime. Currently afebrile. She is waiting for a bed on the stepdown unit. Progress note dated April 25, 2024. This is a 54-year-old female seen yesterday in consultation. The patient complains of shortness of breath, and a history of asthma/COPD. The patient typically sees the other waste treatment operator in town. She presented with complaints of fever, productive cough, yellow phlegm production, as well as chest congestion. Chest x-ray suggested either infiltrates or atelectasis at the bases. The patient's procalcitonin level was normal at 0.11. All antibiotics will be discontinued. She continues on oxygen by nasal cannula at 4 L. She is not receiving any IV fluids. Current laboratory data includes a white count 27.8, hemoglobin 12.3, hematocrit 40.2, and a platelet count of 329,000. Sodium 133, potassium 4.5, chlorides 100, CO2 29, BUN 15, creatinine 0.64. Glucose is 189. Calcium is 8.9. Progress note dated April 26, 2024. 54-year-old female seen today in room 366. The patient states that she is not feeling much improved, in regards to her shortness of breath. She is not receiving any IV fluids. She is on O2 at 4 L. She did not use a BiPAP device last night. Her procalcitonin level was 0.11. We will change her Symbicort to budesonide and formoterol. We will order a follow-up chest x-ray. No new labs today, other than a glucose of 192. Progress note dated April 27, 2024. This is a 54-year-old female who typically sees the other waste treatment operator, over at [facility]. The patient was admitted with a diagnosis of COPD exacerbation. She had a repeat chest x-ray yesterday, that was normal. Procalcitonin level was 0.11. She is on 3 L of oxygen. No IV fluids. Despite excellent medications, she continues to state that she is not feeling any better. She wishes to have a CT scan ordered. I do not believe this and need for CT scan at this time. If the primary service wants to order a CT scan, that would be okay. No new labs today other than a glucose of 195. Progress note dated April 28, 2024. 54-year-old female admitted with a diagnosis of COPD exacerbation. Clinically, she is improved. Chest x-ray is stable. Procalcitonin level was normal. She is on appropriate medications including updrafts with albuterol sulfate ipratropium bromide, Pulmicort 1 mg, formoterol 20 mcg, and Solu-Medrol, 60 mg every 6 hours. Current labs include a white count of 17.5, hemoglobin 12.1, hematocrit 39.1, and a platelet count of 202,000. Sodium 135, potassium 4.1, chloride 98, CO2 34, BUN 28, creatinine 0.71. Glucose is 194. Calcium is 8.8. On today's evaluation of 04/29/2024, the patient is being seen for a follow-up., Comfortable, was positioned on a bedside recliner. No significant shortness of breath at rest. She is having some cough and congestion and she remains on oxygen 2 L/min nasal cannula. Remains on bronchodilators. Remains on DuoNeb nebulized treatments [id number]. Remains on budesonide and Perforomist nebulized treatments twice a day and IV Solu-Medrol 60 mg every 6 hours. The patient is currently not receiving any antibiotics. The most recent chest x-ray from 04/26/2024 showed no acute cardiopulmonary process. Labs from yesterday was noted. The white cell count was dropping down to 17.5 with a hemoglobin 4.1 and a platelet count of 202. BUN is 29 with a creatinine of 0.7 and sodium is at 135 with a potassium level of 4.1. Procalcitonin level has been essentially within normal limits. Patient is very much weak and debilitated. 04/30/2024, the patient is being seen for a follow-up. Patient is less bronchospastic and wheezy on today's evaluation. No significant complaints. She continues to have a congested cough, unable to bring out sputum. She remains on Solu-Medrol 40 mg every 6 hours. She remains on DuoNeb nebulized treatments [id number]. Rest of the medications remain unchanged. Blood sugar today is at 259. No other new labs are available. Procalcitonin level is at 0.04. Chest x-ray at the time of admission and subsequent chest x-ray from 04/26/2024 showed no evidence of any pneumonia. Oxygenation is stable and the patient is currently on 2 L of O2 nasal cannula with a pulse ox of 94%. 05/01/2024, seen the patient for a follow-up. The patient is still congested and wheezy. She is currently n.p.o. awaiting a bronchoscopy for therapeutic airway suctioning and a bronchial lavage. She remains on same regimen of bronchodilators. She remains on DuoNeb nebulized treatments [id number], she remains on a Perforomist and Pulmicort nebulized treatments twice a day and IV Solu-Medrol 40 g every 6 hours. Rest of the medications remain unchanged. Labs from today shows a WBC count 17.9 with a hemoglobin 11.7 and platelet count of 227. BUN 32 with a creatinine of 0.59 and sodium levels at 134. Serum bicarb is at 36. In terms of oxygenation, the patient is on 3 L of oxygen by nasal cannula with a pulse ox of 93%. She remains on insulin, Levemir 15 units daily and NovoLog sliding scale coverage. 05/02/2024, the patient is being seen for a follow-up. The patient is doing better compared to yesterday. Bronchoscopy endobronchial lavage was done and the culture still pending for now. Copious amount of respiratory secretion was identified and they were suctioned out. A bronchial lavage was also done. The patient was also started on Diflucan regarding oropharyngeal candidiasis. Pulse ox is in the order of 94% on 2 L of oxygen by nasal cannula. Feels somewhat better compared to yesterday. She remains on DuoNeb nebulized treatments on the clock, she remains on Diflucan, she remains on systemic steroids with Solu- Medrol 40 mg every 6 hours. Rest of the medications remain unchanged. 05/03/2024, the patient is being seen for a follow-up. Patient is feeling better and the patient is currently on room air oxygen. The bronchoscope endobronchial lavage that was done earlier showed no microbial growth in the bronchial washings endobronchial lavage shows no microbial growth. Rare gram-positive cocci, few yeast, few gram-positive bacilli. Cultures are still negative for now. Remains on nystatin. Remains on oral Diflucan. The patient was taken off the IV Solu-Medrol started on a prednisone burst taper. No new labs are available from today. Less bronchospastic and wheezy compared to yesterday. No other new complaints otherwise for now. Her condition is essentially stable for now. She is concerned about steroid allergy and the patient is on Benadryl. On 05/04/2024, the patient is being seen for a follow-up. The patient is still requiring on and off oxygen although there is ongoing improvement in oxygenation status. Bronchoscopy about Lavage was done and the patient is growing gram- negative bacillus which turned out to be stenotrophomonas. Based on that, I am recommending to start the patient on a course of antibiotics. Ideally, would like to start the patient on Bactrim. The patient is allergic to sulfa. Alternatives would include quinolone such as Levaquin or minocycline. I am going to start the patient on quinolones. Her white cell count of 17.9 and this was done on 05/01/2024 without any subsequent follow-up. Remains on prednisone burst taper. Remains on Diflucan. She did have extensive oropharyngeal candidiasis on earlier bronchoscopic evaluation. Objective - Vital Signs Vital signs: Vital Signs Temp 98.5 F 05/04/24 07:51 Pulse 92 05/04/24 08:46 Resp 16 05/04/24 07:51 BP 106/58 05/04/24 07:51 Pulse Ox 95 05/04/24 08:39 FiO2 50 04/24/24 23:06 Intake & Output 05/03/24 05/04/24 05/04/24 18:59 06:59 18:59 Intake Total 1284 540 298 Balance 1284 540 298 Weight 107.7 kg Intake: Oral 1284 540 298 Other: Voiding Method Toilet Toilet Toilet # Voids 2 2 - Exam No acute distress, oriented 3. Currently on room air oxygen, the patient has no signs of respiratory distress while at rest Head exam was generally normal. There was no scleral icterus or corneal arcus. Mucous membranes were moist. HEENT examination is grossly unremarkable. Mucous membranes are moist. No oral lesions. Neck supple. Full range of motion. No adenopathy thyromegaly or neck vein distention. Cardiovascular examination reveals regular rhythm rate. S1-S2 normal. No S3 or S4. No discernible murmur noted. Heart sounds are distant. Lungs reveal mild bilateral wheezes and rhonchi. No crackles. Breath sounds are quite diminished bilaterally and the patient is scheduled for wheezes throughout the lung washburn bilaterally. Abdomen soft bowel sounds are heard. No masses or tenderness. Extremities are intact. No cyanosis clubbing or edema. Skin is without rash or lesion. Neurologic examination is brief but nonfocal. - Labs CBC & Chem 7: 05/01/24 07:20 05/01/24 07:20 Labs: Abnormal Lab Results - Last 24 Hours (Table) 05/03/24 05/03/24 05/04/24 Range/Units 16:46 19:55 05:16 POC Glucose (mg/dL) 250 H 224 H 146 H (70-110) mg/dL Microbiology - Last 24 Hours (Table) 05/01/24 12:00 Gram Stain - Preliminary Bronchoalviolar Lavage - Left Bronchial Washings Culture - Preliminary Gram Neg Bacilli Assessment and Plan Plan: Acute COPD/asthma exacerbation, clinically improving and the patient is lysing BiPAP overnight and currently in oxygen at room air no signs of any respite distress at rest, at rest, nevertheless, the patient remains actively bronchospastic and wheezy and this is her second admission over the past 3 to 4 weeks. Chest x-ray history of an acute pulmonary process. The patient remains on mucolytic's and steroids. The patient is status post bronchoscopy that was done on 05/01/2024 with a bronchial lavage of the left lower lobe. Respiratory status improved following the bronchoscopy, the bronchial lavage from the left lower lobe showed stenotrophomonas Acute on chronic hypoxic respiratory failure, currently on room air oxygen Acute leukocytosis, improving and the procalcitonin level is 0.04, the white cell count is improving History of DVT. History of factor V Leyden. History of multiple sclerosis. Chronic pain. Chronic ongoing tobacco dependence. Chronic debility secondary above-mentioned comorbidities Obesity with some cushingoid features related to chronic steroid use History of adrenal insufficiency Oropharyngeal and laryngeal candidiasis Plan: Bronchoscopy endobronchial lavage showed stenotrophomonas. Ideally, would like to start the patient on Bactrim. Nevertheless, the patient is allergic to sulfa. Alternatives would include minocycline and quinolones. I opted to start the patient on Levaquin 750 mg p.o. daily to complete a total of 10 to 14-day course. Diflucan for oropharyngeal candidiasis and laryngeal candidiasis. This will be continued. She remains on bronchodilators and steroids. Continue prednisone burst taper starting with 40 mg continue rest of bronchodilators. Continued anticoagulation with Eliquis IV fluids to KVO. Aggressive pulmonary toileting and use of incentive spirometer. Will continue to follow.
[2024-05-04] MEDS: LEVOFLOXACIN 750 MG TAB PO SCH (13:01)
--- NOTE | 2024-05-04 13:36 | P.PN ---
Subjective Progress Note Date: 05/04/24 Interval History: This is a 54-year-old female with past medical history significant for COPD, DVT, factor V Leiden, hypothyroidism ,recurrent UTI with ESBL, MS, chronic back pain, laminectomy/decompression, fibromyalgia gastroesophageal reflux disease, recently discharged on 04/20/2024 with similar presentation presented to the ER with complaints of progressive shortness of breath, productive cough with yellow sputum, body aches, congestion and fevers. States she did not actually take her temperature. Reports she follows with Dr. Moreno outpatient, pulmonology.Viral studies negative. Chest x-ray reporting right basilar infiltrates, early for bibasilar atelectasis. Procalcitonin pending. On admission afebrile, tachycardic, hypoxic requiring up to 5 L nasal cannula, weaned down to 3 L currently, maintaining O2 sats in the 90s. WBC 26.1, hemoglobin 15.3, platelets 405, INR 0.9, sodium 130, potassium 4, bicarb 29, BUN 18, creatinine 0.98, glucose 153, lactic acid 2, magnesium 1.9, troponins negative x 1, proBNP 325. 04/25/2024 ongoing cough now nonproductive. Maintained on nebulized bronchodilators, Symbicort, IV steroids and antibiotics. Complains of anxiety. breathing improving, decreased wheezing. maintaining O2 sats in the 90s on 3 L nasal cannula. Denies chills or sweats. Procalcitonin normal, 0.11. Afebrile, labs pending, UA not collected yet. 04/29/2024 using BiPAP at night .maintained on nebulized bronchodilators ATC, IV steroids, maintaining O2 sats of 93 to 94% on 2 L nasal cannula. Reports no reserve, exertional shortness of breath. States positive chest pressure from coughing-improving. Denies nausea vomiting or diarrhea. Denies lightheadedness ,dizziness or focal deficits. Denies blurred vision. Evaluated by PT recommending home at [place]. 04/30/2024 reports not sleeping well, bilateral lower extremity achiness. Decreased wheezing. Continues on nebulized bronchodilators ,IV steroids ,maintaining O2 sats in the 90s on 2 L nasal cannula.hyperglycemic with blood sugars in the 200s. 05/01/2024 sugars better controlled on Levemir. Reports breathing better today. maintaining O2 sats to the 90s on 2 L nasal cannula. Congested cough. N.p.o. since midnight for bronchoscopy today with pulmonary. Requesting requesting to exchange her MS Yony for Dilaudid pain control 05/02/2024 status post bronchoscopy yesterday reporting candidiasis involving the oropharyngeal and laryngeal structures, copious retained secretions within the patient's airways, ruling out tracheobronchitis. Diflucan initiated. cultures pending. Continues on larcyd-jci-qytic nebulized bronchodilators, IV steroids, breathing much easier today, maintaining O2 sats in the 90s on 2 L nasal cannula. 05/03/2024--- patient was seen and examined today. Patient feeling better, currently on room air. BAL showed no growth so far. Endobronchial washings showing no microbial growth. Currently on statin, oral Diflucan, has been taken off IV Solu-Medrol and started on prednisone burst taper per pulmonary. Wheezing is improving. 05/04/2024 patient seen and examined today.--Required on and off oxygen overnight. BAL growing staph for Monus. Patient allergic to Bactrim, patient started on quinolone by pulmonary. White count is 17.9. Currently on prednisone taper, on Diflucan. Was found to have extensive oropharyngeal candidiasis on bronchoscopy evaluation. Assessment and plan: Acute COPD, asthma exacerbation , procalcitonin normal, viral studies negative. Per pulmonary no clear indication for pneumonia. Status post bronchoscopy. Oral and laryngeal candidiasis. Cultures pending. Acute on chronic hypoxic respiratory failure secondary to the above. Reports on previous admission, sent home on 2 L nasal cannula O2 Leukocytosis Factor V Leiden, history of Chronic pain syndrome History of osteoarthritis History of multiple sclerosis Morbid obesity, BMI 37 Nicotine dependence Hemoglobin A1c 6.6 Plan: Continue on current medication regimen, monitoring and symptomatic treatment. Diflucan. aggressive pulmonary toileting, nebulized bronchodilators ,titration of steroids as per pulmonary, incentive spirometer reinforced,increase ambulation as tolerated. Pain management discussed with patient as she continues to request increased Dilaudid. No increase given, explained high risk for respiratory depressant. Pulmonary consulted and following. Continue Eliquis Nystatin, Diflucan. Added Levaquin by pulmonary, BAL growing staph Semones. Continue inhaler/prednisone DVT prophylaxis: AC PHYSICAL EXAMINATION: GENERAL: The patient is A&O x3, NAD HEENT: EOMI, Sclerae anicteric, Moist Mucous membranes Neck: Supple, Non tender, No JVD PULMONARY: Decreased breath souds B/L, + wheezing, No crackles. CARDIOVASCULAR: S1, S2 present. No murmurs, rubs, or gallops. ABDOMEN: Soft, nontender, nondistended, normoactive bowel sounds. No guarding or rebound tenderness. MUSCULOSKELETAL: No edema, No cyanosis. No clubbing. Normal ROM. Intact nikkie pheral pulses. EXTREMITIES: No cyanosis, clubbing, or pedal edema. NEUROLOGICAL: CN 2-12 grossly intact. No FND Skin: No Rash REVIEW OF SYSTEMS: CONSTITUTIONAL: No fever or chills. CARDIOVASCULAR: No chest pain, palpitations or syncope. PULMONARY: Complains of shortness of breath, wheezing, cough. GASTROINTESTINAL: No nausea, vomiting, diarrhea, abdominal pain. : No Dysuria, urgency, frequency. Extremities: No edema. NEUROLOGICAL: No headaches, no weakness, or numbness Dictation was produced using Built In dictation software. please excuse any grammatical, word or spelling errors. Objective - Vital Signs Vital signs: Vital Signs Temp 98.5 F 05/04/24 07:51 Pulse 84 05/04/24 12:10 Resp 16 05/04/24 07:51 BP 106/58 05/04/24 07:51 Pulse Ox 95 05/04/24 08:39 FiO2 50 04/24/24 23:06 Intake & Output 05/03/24 05/04/24 05/04/24 18:59 06:59 18:59 Intake Total 1284 540 298 Balance 1284 540 298 Weight 107.7 kg Intake: Oral 1284 540 298 Other: Voiding Method Toilet Toilet Toilet # Voids 2 2 - Labs CBC & Chem 7: 05/01/24 07:20 05/01/24 07:20 Labs: Abnormal Lab Results - Last 24 Hours (Table) 05/03/24 05/03/24 05/04/24 Range/Units 16:46 19:55 05:16 POC Glucose (mg/dL) 250 H 224 H 146 H (70-110) mg/dL 05/04/24 Range/Units 12:16 POC Glucose (mg/dL) 170 H (70-110) mg/dL Microbiology - Last 24 Hours (Table) 05/01/24 12:00 Gram Stain - Final Bronchoalviolar Lavage - Left Bronchial Washings Culture - Final Stenotrophomonas maltophilia
[2024-05-04 17:38] LABS: Glucose,Whole Blood 208 mg/dL (70-110)
[2024-05-04 20:00] LABS: Glucose,Whole Blood 175 mg/dL (70-110)
[2024-05-05 06:13] LABS: Glucose,Whole Blood 134 mg/dL (70-110)
[2024-05-05 09:09] LABS: Blood Urea Nitrogen 31.9 mg/dL (9.0-27.0); Calcium 8.3 mg/dL (8.7-10.3); Carbon Dioxide 33.9 mmol/L (21.6-31.8); Chloride 97 mmol/L (96-109); Glucose 161 mg/dL (70-110); Potassium 4.8 mmol/L (3.5-5.5); Sodium 139 mmol/L (135-145)
[2024-05-05 09:48] LABS: HCT 35.8 % (37.2-46.3); HGB 10.8 g/dL (12.0-15.0); MCH 24.2 pg (27.0-32.0); MCHC 30.2 g/dL (32.0-37.0); MCV 80.1 FL (80.0-97.0); Mean Platelet Volume 9.5 FL (9.5-12.2); NRBC Per 100 WBC 0 X 10*3/uL (0.00-0.01); Platelet Count 254 X 10*3/uL (140-440); RBC 4.47 X 10*6/uL (4.10-5.20); RDW 22.5 % (11.5-14.5); WBC 14.17 X 10*3/uL (4.50-10.00)
[2024-05-05 10:25] LABS: Basophils # (M) 0 X 10*3/uL (0.00-0.10); Eosinophils # (M) 0 X 10*3/uL (0.04-0.35); Lymphocytes # (M) 1.42 X 10*3/uL (0.90-5.00); Metamyelocytes % 1 % (0-0); Microcytosis (M) 2+; Monocytes # (M) 0.14 X 10*3/uL (0.20-1.00); Myelocytes % 1 % (0-0); Neutrophils # (M) 12.33 X 10*3/uL (1.80-7.70); Neutrophils % (M) 87 %
--- NOTE | 2024-05-05 10:52 | P.DS ---
Providers Date of admission: 04/23/24 18:22 Expected date of discharge: 05/05/24 Attending physician: Richy Palomino MD Consults: 04/23/24 18:22 Consult Physician Routine Consulting Provider: Anthony Moore Consult Reason/Comments: COPD/PNA Do you want consulting provider notified?: Yes Primary care physician: Richy Palomino MD Hospital Course: Final Diagnoses: Acute COPD, asthma exacerbation , procalcitonin normal, viral studies negative. Per pulmonary no clear indication for pneumonia. Status post bronchoscopy. Oral and laryngeal candidiasis. Bronchoscopy /Lavage culture reported stenotrophomonas. Acute on chronic hypoxic respiratory failure secondary to the above. Reports on previous admission, sent home on 2 L nasal cannula O2 Leukocytosis Factor V Leiden, history of Chronic pain syndrome History of osteoarthritis History of multiple sclerosis Morbid obesity, BMI 37 Nicotine dependence Hemoglobin A1c 6.6 Hospital course:This is a 54-year-old female with past medical history significant for COPD, DVT, factor V Leiden, hypothyroidism ,recurrent UTI with ESBL, MS, chronic back pain, laminectomy/decompression, fibromyalgia gastroesophageal reflux disease, recently discharged on 04/20/2024 with similar presentation presented to the ER with complaints of progressive shortness of breath, productive cough with yellow sputum, body aches, congestion and fevers. States she did not actually take her temperature. Reports she follows with Dr. Moreno outpatient, pulmonology.Viral studies negative. Chest x- ray reporting right basilar infiltrates, early for bibasilar atelectasis. Procalcitonin pending. On admission afebrile, tachycardic, hypoxic requiring up to 5 L nasal cannula, weaned down to 3 L currently, maintaining O2 sats in the 90s. WBC 26.1, hemoglobin 15.3, platelets 405, INR 0.9, sodium 130, potassium 4, bicarb 29, BUN 18, creatinine 0.98, glucose 153, lactic acid 2, magnesium 1.9, troponins negative x 1, proBNP 325. 04/25/2024 ongoing cough now nonproductive. Maintained on nebulized bronchodilators, Symbicort, IV steroids and antibiotics. Complains of anxiety. breathing improving, decreased wheezing. maintaining O2 sats in the 90s on 3 L nasal cannula. Denies chills or sweats. Procalcitonin normal, 0.11. Afebrile, labs pending, UA not collected yet. 04/29/2024 using BiPAP at night .maintained on nebulized bronchodilators ATC, IV steroids, maintaining O2 sats of 93 to 94% on 2 L nasal cannula. Reports no reserve, exertional shortness of breath. States positive chest pressure from coughing-improving. Denies nausea vomiting or diarrhea. Denies lightheadedness ,dizziness or focal deficits. Denies blurred vision. Evaluated by PT recommending home at [place]. 04/30/2024 reports not sleeping well, bilateral lower extremity achiness. Decreased wheezing. Continues on nebulized bronchodilators ,IV steroids ,maintaining O2 sats in the 90s on 2 L nasal cannula.hyperglycemic with blood sugars in the 200s. 05/01/2024 sugars better controlled on Levemir. Reports breathing better today. maintaining O2 sats to the 90s on 2 L nasal cannula. Congested cough. N.p.o. since midnight for bronchoscopy today with pulmonary. Requesting requesting to exchange her MS Contin for Dilaudid pain control 05/02/2024 status post bronchoscopy yesterday reporting candidiasis involving the oropharyngeal and laryngeal structures, copious retained secretions within the patient's airways, ruling out tracheobronchitis. Diflucan initiated. cultures pending. Continues on [id number] nebulized bronchodilators, IV steroids, breathing much easier today, maintaining O2 sats in the 90s on 2 L nasal cannula. Significant clinical improvement. Bronchoscopy /Lavage culture reported stenotrophomonas. Transitioned to oral steroids, quinolones as patient has sulfa allergy and unable to take Bactrim and continues on Diflucan. maintaining O2 sats in the 90s on 2 L nasal cannula-baseline; patient was discharged on 2 L nasal cannula O2 last admission. Denies chest pain, palpitations or increased shortness of breath. Patient will be discharged home today in a stable condition with guarded prognosis pending evaluation by PT, final [place] recommendations and clearance per pulmonary. Microbiology 05/01/24 12:00 Bronchoalviolar Lavage - Left Gram Stain - Final 05/01/24 12:00 Bronchoalviolar Lavage - Left Bronchial Washings Culture - Final Stenotrophomonas maltophilia 05/01/24 12:00 Bronchoalviolar Lavage - Left Acid Fast Bacilli Smear - Preliminary 04/26/24 08:34 Blood Blood Culture - Final 04/23/24 15:48 Blood Blood Culture - Final The impression and plan of care has been dictated as directed. : I performed a history and examination of this patient, discussed the same with the dictator. I agree with the dictator's note ,documented as a scribe. Any additional findings or plans will be noted. Patient Condition at Discharge: Stable Plan - Discharge Summary Discharge Rx Participant: No New Discharge Prescriptions: New Nicotine 21Mg/24Hr Patch [Habitrol] 1 patch TRANSDERM DAILY patch Magnesium Oxide [Mag-Ox] 400 mg PO BID tab Nystatin 100,000 Unit/ml Susp [Mycostatin Oral Susp] 500,000 unit PO QID ml Fluconazole [Diflucan] 100 mg PO DAILY #7 tab Levofloxacin [Levaquin] 750 mg PO DAILY #7 tab polyethylene glycoL 3350 [Miralax] 17 gm PO DAILY packet Metoprolol Succinate (ER) [Toprol XL] 25 mg PO DAILY #30 tab Continue DULoxetine HCL [Cymbalta] 60 mg PO BID traZODone HCL 100 mg PO HS Apixaban [Eliquis] 5 mg PO BID Morphine Sulfate ER [Ms Contin] 15 mg PO Q12H Hydrocortisone [Cortef] 30 mg PO DAILY Hydrocortisone [Cortef] 10 mg PO HS buPROPion XL [Wellbutrin XL] 300 mg PO DAILY Amitriptyline HCl [Elavil] 100 mg PO HS Albuterol Sulfate [Proair Hfa] 2 puff INHALATION RT-Q6H PRN PRN Reason: Shortness Of Breath Levothyroxine Sodium [Synthroid] 100 mcg PO DAILY oxyCODONE-APAP 10-325MG [Percocet 10-325 mg] 1 tab PO Q6H PRN PRN Reason: Pain Pregabalin [Lyrica] 200 mg PO TID Celecoxib [CeleBREX] 200 mg PO DAILY Montelukast [Singulair] 10 mg PO DAILY Ocrelizumab [Ocrevus] 600 mg IV Q180D Omeprazole 20 mg PO DAILY Ergocalciferol [Vitamin D2 (1250 Mcg = 45109 Iu)] 1,250 mcg PO FR ondansetron HCL [Zofran] 8 mg PO Q8HR PRN PRN Reason: Nausea Cyclobenzaprine [Flexeril] 5 mg PO BID Fluticasone Propion/Salmeterol [Advair 250-50 Diskus] 1 inhalation PO RT-BID Semaglutide [Ozempic] 2 mg SQ FR Dextroamphetamine/Amphetamine [Adderall] 15 mg PO BID Discharge Medication List DULoxetine HCL [Cymbalta] 60 mg PO BID 04/01/19 [History] traZODone HCL 100 mg PO HS 12/03/19 [History] Apixaban [Eliquis] 5 mg PO BID 12/17/19 [History] Hydrocortisone [Cortef] 30 mg PO DAILY 10/07/20 [History] Morphine Sulfate ER [Ms Contin] 15 mg PO Q12H 10/07/20 [History] Hydrocortisone [Cortef] 10 mg PO HS 04/26/21 [History] Albuterol Sulfate [Proair Hfa] 2 puff INHALATION RT-Q6H PRN 05/05/22 [History] Amitriptyline HCl [Elavil] 100 mg PO HS 05/05/22 [History] Ergocalciferol [Vitamin D2 (1250 Mcg = 68318 Iu)] 1,250 mcg PO FR 05/05/22 [History] Omeprazole 20 mg PO DAILY 05/05/22 [History] buPROPion XL [Wellbutrin XL] 300 mg PO DAILY 05/05/22 [History] Levothyroxine Sodium [Synthroid] 100 mcg PO DAILY 05/31/23 [History] Pregabalin [Lyrica] 200 mg PO TID 05/31/23 [History] oxyCODONE-APAP 10-325MG [Percocet 10-325 mg] 1 tab PO Q6H PRN 05/31/23 [History] ondansetron HCL [Zofran] 8 mg PO Q8HR PRN 07/03/23 [History] Celecoxib [CeleBREX] 200 mg PO DAILY 04/23/24 [History] Cyclobenzaprine [Flexeril] 5 mg PO BID 04/23/24 [History] Dextroamphetamine/Amphetamine [Adderall] 15 mg PO BID 04/23/24 [History] Fluticasone Propion/Salmeterol [Advair 250-50 Diskus] 1 inhalation PO RT-BID 04/23/24 [History] Montelukast [Singulair] 10 mg PO DAILY 04/23/24 [History] Ocrelizumab [Ocrevus] 600 mg IV Q180D 04/23/24 [History] Semaglutide [Ozempic] 2 mg SQ FR 04/23/24 [History] Fluconazole [Diflucan] 100 mg PO DAILY #7 tab 05/05/24 [Rx] Levofloxacin [Levaquin] 750 mg PO DAILY #7 tab 05/05/24 [Rx] Magnesium Oxide [Mag-Ox] 400 mg PO BID tab 05/05/24 [Rx] Metoprolol Succinate (ER) [Toprol XL] 25 mg PO DAILY #30 tab 05/05/24 [Rx] Nicotine 21Mg/24Hr Patch [Habitrol] 1 patch TRANSDERM DAILY patch 05/05/24 [Rx] Nystatin 100,000 Unit/ml Susp [Mycostatin Oral Susp] 500,000 unit PO QID ml [Rx] polyethylene glycoL 3350 [Miralax] 17 gm PO DAILY packet 05/05/24 [Rx] Follow up Appointment(s)/Referral(s): None,Stated [REFERRING] - 1-2 days Richy Palomino MD [Primary Care Provider] - 1 Week Rafaela Regalado MD [STAFF PHYSICIAN] - 2 Weeks
[2024-05-05 12:22] LABS: Glucose,Whole Blood 261 mg/dL (70-110)
--- NOTE | 2024-05-05 13:11 | P.PN ---
Subjective Progress Note Date: 05/05/24 Patient is a 54-year-old white female with past medical history significant for asthma/COPD, DVT, factor V Leyden, hyperlipidemia, hypothyroidism, among other things. Her mechanical assembler is Dr. Tay Moreno. Of note, patient states that she was recently discharged from the hospital and treated for COPD. She was treated with antibiotics during this hospitalization. Discharged with oxygen approximately 1 week ago. Patient returned to the emergency department yesterday evening in respiratory distress. She was hypoxic and initially placed on BiPAP with settings 10/5 and FiO2 50%. Currently, she remains in the emergency department, in no apparent distress at this time. On 5 L/min nasal cannula. SpO2 92%. Over the last week she has progressively become more short of breath. She has had subjective fevers, productive cough with yellow to green sputum production. Cough is persistent and she has some chest soreness associated with coughing and deep breathing. Denies hemoptysis. She has had r educed appetite and nausea. No actual vomiting, abdominal pain, diarrhea. Chest x-ray showing mild bibasilar infiltrates. CBC: WBC count 26.1, hemoglobin 15.3, hematocrit 47.6, platelets 405. CMP: Sodium 130, potassium 4, chloride 93, serum bicarb 29, BUN 18, creatinine 0.98, glucose 153. LFTs unremarkable. Troponin less than 0.012. NT proBNP 325. EKG showing sinus tachycardia with nonspecific T wave abnormalities. Denies missing any doses of Eliquis. Negative for influenza, RSV, COVID. Currently covered on a combination of azithromycin and cefepime. Currently afebrile. She is waiting for a bed on the stepdown unit. Progress note dated April 25, 2024. This is a 54-year-old female seen yesterday in consultation. The patient complains of shortness of breath, and a history of asthma/COPD. The patient typically sees the other mechanical assembler in town. She presented with complaints of fever, productive cough, yellow phlegm production, as well as chest congestion. Chest x-ray suggested either infiltrates or atelectasis at the bases. The patient's procalcitonin level was normal at 0.11. All antibiotics will be discontinued. She continues on oxygen by nasal cannula at 4 L. She is not receiving any IV fluids. Current laboratory data includes a white count 27.8, hemoglobin 12.3, hematocrit 40.2, and a platelet count of 329,000. Sodium 133, potassium 4.5, chlorides 100, CO2 29, BUN 15, creatinine 0.64. Glucose is 189. Calcium is 8.9. Progress note dated April 26, 2024. 54-year-old female seen today in room 366. The patient states that she is not feeling much improved, in regards to her shortness of breath. She is not receiving any IV fluids. She is on O2 at 4 L. She did not use a BiPAP device last night. Her procalcitonin level was 0.11. We will change her Symbicort to budesonide and formoterol. We will order a follow-up chest x-ray. No new labs today, other than a glucose of 192. Progress note dated April 27, 2024. This is a 54-year-old female who typically sees the other mechanical assembler, over at [facility]. The patient was admitted with a diagnosis of COPD exacerbation. She had a repeat chest x-ray yesterday, that was normal. Procalcitonin level was 0.11. She is on 3 L of oxygen. No IV fluids. Despite excellent medications, she continues to state that she is not feeling any better. She wishes to have a CT scan ordered. I do not believe this and need for CT scan at this time. If the primary service wants to order a CT scan, that would be okay. No new labs today other than a glucose of 195. Progress note dated April 28, 2024. 54-year-old female admitted with a diagnosis of COPD exacerbation. Clinically, she is improved. Chest x-ray is stable. Procalcitonin level was normal. She is on appropriate medications including updrafts with albuterol sulfate ipratropium bromide, Pulmicort 1 mg, formoterol 20 mcg, and Solu-Medrol, 60 mg every 6 hours. Current labs include a white count of 17.5, hemoglobin 12.1, hematocrit 39.1, and a platelet count of 202,000. Sodium 135, potassium 4.1, chloride 98, CO2 34, BUN 28, creatinine 0.71. Glucose is 194. Calcium is 8.8. On today's evaluation of 04/29/2024, the patient is being seen for a follow-up., Comfortable, was positioned on a bedside recliner. No significant shortness of breath at rest. She is having some cough and congestion and she remains on oxygen 2 L/min nasal cannula. Remains on bronchodilators. Remains on DuoNeb nebulized treatments [id number]. Remains on budesonide and Perforomist nebulized treatments twice a day and IV Solu-Medrol 60 mg every 6 hours. The patient is currently not receiving any antibiotics. The most recent chest x-ray from 04/26/2024 showed no acute cardiopulmonary process. Labs from yesterday was noted. The white cell count was dropping down to 17.5 with a hemoglobin 4.1 and a platelet count of 202. BUN is 29 with a creatinine of 0.7 and sodium is at 135 with a potassium level of 4.1. Procalcitonin level has been essentially within normal limits. Patient is very much weak and debilitated. 04/30/2024, the patient is being seen for a follow-up. Patient is less bronchospastic and wheezy on today's evaluation. No significant complaints. She continues to have a congested cough, unable to bring out sputum. She remains on Solu-Medrol 40 mg every 6 hours. She remains on DuoNeb nebulized treatments [id number]. Rest of the medications remain unchanged. Blood sugar today is at 259. No other new labs are available. Procalcitonin level is at 0.04. Chest x-ray at the time of admission and subsequent chest x-ray from 04/26/2024 showed no evidence of any pneumonia. Oxygenation is stable and the patient is currently on 2 L of O2 nasal cannula with a pulse ox of 94%. 05/01/2024, seen the patient for a follow-up. The patient is still congested and wheezy. She is currently n.p.o. awaiting a bronchoscopy for therapeutic airway suctioning and a bronchial lavage. She remains on same regimen of bronchodilators. She remains on DuoNeb nebulized treatments [id number], she remains on a Perforomist and Pulmicort nebulized treatments twice a day and IV Solu-Medrol 40 g every 6 hours. Rest of the medications remain unchanged. Labs from today shows a WBC count 17.9 with a hemoglobin 11.7 and platelet count of 227. BUN 32 with a creatinine of 0.59 and sodium levels at 134. Serum bicarb is at 36. In terms of oxygenation, the patient is on 3 L of oxygen by nasal cannula with a pulse ox of 93%. She remains on insulin, Levemir 15 units daily and NovoLog sliding scale coverage. 05/02/2024, the patient is being seen for a follow-up. The patient is doing be tter compared to yesterday. Bronchoscopy endobronchial lavage was done and the culture still pending for now. Copious amount of respiratory secretion was identified and they were suctioned out. A bronchial lavage was also done. The patient was also started on Diflucan regarding oropharyngeal candidiasis. Pulse ox is in the order of 94% on 2 L of oxygen by nasal cannula. Feels somewhat better compared to yesterday. She remains on DuoNeb nebulized treatments on the clock, she remains on Diflucan, she remains on systemic steroids with Solu- Medrol 40 mg every 6 hours. Rest of the medications remain unchanged. 05/03/2024, the patient is being seen for a follow-up. Patient is feeling better and the patient is currently on room air oxygen. The bronchoscope endobronchial lavage that was done earlier showed no microbial growth in the bronchial washings endobronchial lavage shows no microbial growth. Rare gram-positive cocci, few yeast, few gram-positive bacilli. Cultures are still negative for now. Remains on nystatin. Remains on oral Diflucan. The patient was taken off the IV Solu-Medrol started on a prednisone burst taper. No new labs are available from today. Less bronchospastic and wheezy compared to yesterday. No other new complaints otherwise for now. Her condition is essentially stable for now. She is concerned about steroid allergy and the patient is on Benadryl. On 05/04/2024, the patient is being seen for a follow-up. The patient is still requiring on and off oxygen although there is ongoing improvement in oxygenation status. Bronchoscopy about Lavage was done and the patient is growing gram- negative bacillus which turned out to be stenotrophomonas. Based on that, I am recommending to start the patient on a course of antibiotics. Ideally, would li ke to start the patient on Bactrim. The patient is allergic to sulfa. Alternatives would include quinolone such as Levaquin or minocycline. I am going to start the patient on quinolones. Her white cell count of 17.9 and this was done on 05/01/2024 without any subsequent follow-up. Remains on prednisone burst taper. Remains on Diflucan. She did have extensive oropharyngeal candidiasis on earlier bronchoscopic evaluation. The patient is seen today May 05, 2024 in follow-up on the regular medical floor. She is currently sitting up in bed. Awake and alert in no acute distress. Doing quite a bit better. She has been on Levaquin for her stenotrophomonas lung infection. He is maintaining good O2 saturations in the 90s on 2 L/min per nasal cannula. She is afebrile. Hemodynamically stable. White count 14.1. Hemoglobin 10.8. Platelets 254. Sodium 139. Potassium 4.8. Bicarb 34. BUN 32. Creatinine 1.0. Glucose 161. She is continued on DuoNeb inhalations, Pulmicort and Perforomist inhalations, Singulair, DuoNeb inhalations. Continued on a prednisone taper. NicoDerm patch in place. Objective - Vital Signs Vital signs: Vital Signs Temp 97.9 F 05/05/24 07:43 Pulse 88 05/05/24 11:36 Resp 18 05/05/24 07:43 BP 91/62 05/05/24 07:43 Pulse Ox 94 L 05/05/24 07:47 FiO2 50 04/24/24 23:06 Intake & Output 05/04/24 05/05/24 05/05/24 18:59 06:59 18:59 Intake Total 742 Balance 742 Intake: Oral 742 Other: Voiding Method Toilet Toilet Toilet # Voids 2 1 - Exam GENERAL EXAM: Alert, 54-year-old female, on 2 L nasal cannula, comfortable in no apparent distress. HEAD: Normocephalic. EYES: Normal reaction of pupils, equal size. NOSE: Clear with pink turbinates. THROAT: No erythema or exudates. NECK: No masses, no JVD. CHEST: No chest wall deformity. LUNGS: Equal air entry with no crackles, wheeze, rhonchi or dullness. CVS: S1 and S2 normal with no audible murmur, regular rhythm. ABDOMEN: No hepatosplenomegaly, normal bowel sounds, no guarding or rigidity. SPINE: No scoliosis or deformity SKIN: No rashes CENTRAL NERVOUS SYSTEM: No focal deficits, tone is normal in all 4 extremities. EXTREMITIES: There is no peripheral edema. No clubbing, no cyanosis. Peripheral pulses are intact. - Labs CBC & Chem 7: 05/05/24 03:12 05/05/24 03:12 Labs: Abnormal Lab Results - Last 24 Hours (Table) 05/04/24 05/04/24 05/05/24 Range/Units 17:36 19:58 03:12 WBC 14.17 H (4.50-10.00) X 10*3/uL Hgb 10.8 L (12.0-15.0) g/dL Hct 35.8 L (37.2-46.3) % MCH 24.2 L (27.0-32.0) pg MCHC 30.2 L (32.0-37.0) g/dL RDW 22.5 H (11.5-14.5) % Neutrophils # (Manual) 12.33 H (1.80-7.70) X 10*3/uL Monocytes # (Manual) 0.14 L (0.20-1.00) X 10*3/uL Eosinophils # (Manual) 0 L (0.04-0.35) X 10*3/uL Microcytosis (manual) 2+ A Carbon Dioxide (21.6-31.8) mmol/L BUN (9.0-27.0) mg/dL BUN/Creatinine Ratio (12.00-20.00) Ratio Glucose (70-110) mg/dL POC Glucose (mg/dL) 208 H 175 H (70-110) mg/dL Calcium (8.7-10.3) mg/dL 05/05/24 05/05/24 05/05/24 Range/Units 03:12 06:07 12:16 WBC (4.50-10.00) X 10*3/uL Hgb (12.0-15.0) g/dL Hct (37.2-46.3) % MCH (27.0-32.0) pg MCHC (32.0-37.0) g/dL RDW (11.5-14.5) % Neutrophils # (Manual) (1.80-7.70) X 10*3/uL Monocytes # (Manual) (0.20-1.00) X 10*3/uL Eosinophils # (Manual) (0.04-0.35) X 10*3/uL Microcytosis (manual) Carbon Dioxide 33.9 H (21.6-31.8) mmol/L BUN 31.9 H (9.0-27.0) mg/dL BUN/Creatinine Ratio 31.90 H (12.00-20.00) Ratio Glucose 161 H (70-110) mg/dL POC Glucose (mg/dL) 134 H 261 H (70-110) mg/dL Calcium 8.3 L (8.7-10.3) mg/dL Microbiology - Last 24 Hours (Table) 05/01/24 12:00 Gram Stain - Final Bronchoalviolar Lavage - Left Bronchial Washings Culture - Final Stenotrophomonas maltophilia Assessment and Plan Assessment: Acute COPD/asthma exacerbation, clinically improving. Chest x-ray history of an acute pulmonary process. Status post bronchoscopy that was done on 05/01/2024 with a bronchial lavage of the left lower lobe. Respiratory status improved following the bronchoscopy, the bronchial lavage from the left lower lobe showed stenotrophomonas. Remains on Levaquin, allergic to sulfa Acute on chronic hypoxic respiratory failure, currently on 2L per minute per nasal cannula, has home oxygen Acute leukocytosis, improving and the procalcitonin level is 0.04, the white monica l count is improving History of DVT History of factor V Leyden, remains on Eliquis History of multiple sclerosis Chronic pain Chronic ongoing tobacco dependence. Obesity with some cushingoid features related to chronic steroid use History of adrenal insufficiency Oropharyngeal and laryngeal candidiasis, continued on Diflucan Chronic debility secondary above-mentioned comorbidities Plan: The patient was seen and evaluated Currently stable on 2 L nasal cannula Cleared for discharge from the pulmonary standpoint Complete 2 weeks of Levaquin Continue her home pulmonary medications Complete a prednisone taper Educated regarding the importance of complete smoking cessation Follow-up with her mechanical assembler in 1 week I have personally seen and examined the patient, performed the documentation and the assessment and plan as written. Number of minutes spent on the visit: 10.
[2024-05-05 14:42] VITALS: BP 95/64; PULSE 92; RESP 20; TEMP 97.7
[2024-05-05] MEDS ORDERED: SYMBICORT 160-4.5 MCG INHALER INHALATION SCH (20:00)
== END 2024-05-05 15:39 | disposition home or self-care (01) | DRG 193 ==
LOC: EC 15:00 → 3SCARD 18:22 → 6NMEDSUR 05-03 21:32
PROVIDERS: ADMIT Family Medicine; ATTEND Family Medicine
PROC: 0B9J8ZX Drainage of Left Lower Lung Lobe, Via Natural or Artificial Opening Endoscopic, Diagnostic (ICD-10-PCS; principal; 2024-05-01 08:15)
DX: J18.9 Pneumonia, unspecified organism (principal); J96.21 Acute and chronic respiratory failure with hypoxia; E27.40 Unspecified adrenocortical insufficiency; J44.0 Chronic obstructive pulmonary disease with (acute) lower respiratory infection; J44.1 Chronic obstructive pulmonary disease with (acute) exacerbation; B37.0 Candidal stomatitis; B37.89 Other sites of candidiasis; J45.901 Unspecified asthma with (acute) exacerbation; D68.51 Activated protein C resistance; E24.2 Drug-induced Cushing's syndrome; T38.0X5A Adverse effect of glucocorticoids and synthetic analogues, initial encounter; E66.01 Morbid (severe) obesity due to excess calories; E03.9 Hypothyroidism, unspecified; F90.9 Attention-deficit hyperactivity disorder, unspecified type; F32.A Depression, unspecified; F41.9 Anxiety disorder, unspecified; B96.89 Other specified bacterial agents as the cause of diseases classified elsewhere; G35 Multiple sclerosis; E78.5 Hyperlipidemia, unspecified; F17.200 Nicotine dependence, unspecified, uncomplicated; M79.7 Fibromyalgia; G89.4 Chronic pain syndrome; Z79.899 Other long term (current) drug therapy; Z79.01 Long term (current) use of anticoagulants; Z79.890 Hormone replacement therapy; Z79.85 Long-term (current) use of injectable non-insulin antidiabetic drugs; Z79.51 Long term (current) use of inhaled steroids; Z68.38 Body mass index [BMI] 38.0-38.9, adult; Z99.81 Dependence on supplemental oxygen; Z79.1 Long term (current) use of non-steroidal anti-inflammatories (NSAID); Z79.52 Long term (current) use of systemic steroids; Z86.718 Personal history of other venous thrombosis and embolism; Z88.2 Allergy status to sulfonamides; Z88.1 Allergy status to other antibiotic agents
CPT/HCPCS: 31624; 36415; 71045; 80048; 80053; 83036; 83605; 83735; 83880; 84145; 84484; 85025; 85610; 85730; 87040; 87070; 87077; 87102; 87116; 87186; 87205; 87206; 87496; 87498; 87502; 87529; 87634; 87635; 87636; 87798; 89050; 93005; 94640; 94660; 94760; 96365; 96366; 96367; 96375; 99291

== ENCOUNTER → 2024-06-20 | Outpatient (CLI) | payer MEDICARE, OTHER ==
--- NOTE | 2024-06-20 15:18 | CT ---
EXAMINATION TYPE: CT abdomen pelvis wo con DATE OF EXAM: 06/20/2024 COMPARISON: 10/08/2020 CLINICAL INDICATION: Female, 54 years old with history of R10.32 LEFT LOWER QUADRANT PAIN; PHH, Left side groin area pain x3 weeks. TECHNIQUE: CT scan of the abdomen and pelvis is performed without oral or IV contrast. CT DLP: 1079.6 mGycm Automated exposure control for dose reduction was used. FINDINGS: Within the limitations of a non-contrast study, the following observations are made. The lung bases are clear. There is surgical absence of the gallbladder. There is no biliary ductal dilatation. There is no organomegaly involving the liver, pancreas, or spleen. There has been marked interval enlargement of the left adrenal mass which is increased from 3.5 x 3. 0 cm to 6.4 x 5 cm. No contains multiple low density or cystic areas within it. There is a probable 4.4 cm mass in the posterolateral left kidney but the evaluation is limited due t o lack of IV contrast. Right kidney is unremarkable. There are no renal calculi. Caliber of the aorta is normal. There is no retroperitoneal adenopathy or hemorrhage. The bowel loops are normal in caliber and there is no dilatation or obstruction. No inflammatory veladre ges identified within the mesentery. There is no free intraperitoneal air or fluid. There is no pelvic mass, free fluid, abscess or adenopathy. The osseous structures are intact. There is a 2.6 cm well-circumscribed fat-containing mass in the up per left thigh musculature consistent with a benign lipoma IMPRESSION: 1. Markedly enlarging left adrenal mass highly suspicious for neoplasm. 2. Probable left renal mass as described above. Further evaluation with either postcontrast CT abdome n and pelvis or MRI of the kidneys. [facility], , 06/20/2024 3:15 PM
== END | disposition home or self-care (01) ==
LOC: RADCTMAIN 13:13
PROVIDERS: ATTEND Family Medicine
CPT/HCPCS: 74176

== ENCOUNTER → 2024-07-09 | Outpatient (CLI) | payer MEDICARE, OTHER ==
[2024-07-09 16:01] LABS: African American GFR (CKD) 76 (>60 ml/min/1.73 sqM); Blood Urea Nitrogen 14 mg/dL (7-17); Non-African American GFR(CKD) 66 (>60 ml/min/1.73 sqM)
--- NOTE | 2024-07-09 17:59 | CT ---
EXAMINATION TYPE: CT abdomen pelvis w con DATE OF EXAM: 07/09/2024 5:26 PM COMPARISON: 06/20/2024 dating back to 10/08/2020 and 02/16/2017 CLINICAL INDICATION: Female, 54 years old with history of ABD PELVIC MASS R29.09; Left groin pain x2 months TECHNIQUE: Axial CT abdomen pelvis w con;Sagittal and coronal reformats were created on a separate w orkstation. Contrast used:100ml mL of Isovue 300 with IV Contrast, (none if empty) Oral contrast used: with Oral Contrast (none if empty) CT DLP: 1732 mGycm, Automated exposure control for dose reduction was used. FINDINGS: LOWER CHEST: Unremarkable ABDOMEN LIVER: Unremarkable GALLBLADDER AND BILE DUCTS: Unremarkable. PANCREAS: Unremarkable. SPLEEN: Unremarkable. ADRENAL GLANDS: Similar left adrenal mixed density mass; which is more soft tissue than others is low er near fat. Measuring 66 x 54 mm overall morphology is somewhat similar to immediate prior 4. There is evidence for fat within this mass. High density curvilinear areas also present multiple v essels closely approximates the margins of this lesion. KIDNEYS AND URETERS: No evidence of hydronephrosis or renal calculus. The ureters are unremarkable. PELVIS BLADDER: No evidence for wall thickening or mass given limitations of exam. REPRODUCTIVE: Unremarkable. ABDOMEN & PELVIS STOMACH AND BOWEL: No evidence of bowel obstruction. Scattered colonic diverticula are present. PERITONEUM/RETROPERITONEUM: No evidence of pneumoperitoneum or free fluid. VASCULATURE: No evidence of aortic aneurysm. MUSCULOSKELETAL: Left medial thigh compartment lipoma measuring up to 66 x 53 mm. Seen dating back to 2017. Fixation hardware at L4-L5 and S1. Neural stimulator present. Hardware appears intact. LYMPH NODES: No gross evidence for lymphadenopathy. SOFT TISSUE/ABDOMINAL WALL: Unremarkable IMPRESSION: 1. 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 The size has incre ased steadily back from 2017 where it measured 12 mm now measuring up to 66 x 54 mm. Urology consulta tion recommended. 2. Left medial thigh fat-containing lesion partially visualized suggestive of intramuscular lipoma. 3. Colonic diverticulosis. [facility], , 07/09/2024 5:57 PM
== END | disposition home or self-care (01) ==
LOC: RADCTMAIN 15:04
PROVIDERS: ATTEND Family Medicine
DX: K57.30 Diverticulosis of large intestine without perforation or abscess without bleeding (principal); E27.9 Disorder of adrenal gland, unspecified; R19.09 Other intra-abdominal and pelvic swelling, mass and lump
CPT/HCPCS: 82565; 84520; 74177; 36415; Q9967

== ENCOUNTER → 2024-07-10 | Outpatient (CLI) | payer MEDICARE, OTHER ==
--- NOTE | 2024-07-10 12:13 | MR ---
EXAMINATION TYPE: MR abdomen wo/w con DATE OF EXAM: 07/10/2024 11:13 AM COMPARISON: CT scan abdomen from 07/09/2024. 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 Post contrast imaging was performed. Post IV contrast subtraction images were also submitted for review. IV Contrast: 10 mL Gadobutrol FINDINGS: LOWER CHEST: No gross irregularity. ABDOMEN Liver: No evidence for cirrhosis. Signal dropout on chemical shift out of phase imaging. Gallbladder and Bile ducts: Dilation of the extrahepatic and central intrahepatic biliary system. Com mon hepatic duct measuring up to 17 mm. Common bile duct measuring up to 13 mm. The gallbladder appea rs surgically absent. Pancreas: No ductal dilation. No evidence for solid mass. Spleen: Normal for size. Adrenal glands: Similar size left adrenal mass measuring 62 x 45 mm which demonstrates loss of signal on fat saturation sequences. There is also evidence of signal dropout on chemical shift sequences. T he areas of possible adrenal adenoma close in tumor demonstrate some postcontrast enhancement. Kidneys: No evidence for obstructive uropathy. No suspicious renal masses. Stomach and Bowel: No evidence for bowel wall thickening or evidence for obstruction. Retroperitoneum/Peritoneum: No evidence of pneumoperitoneum or free fluid. Vasculature: No aortic aneurysm. Musculoskeletal: The osseous structures appear intact. Susceptibility artifact from fixation hardware in the spine noted. Lymph Nodes: No gross evidence for lymphadenopathy. Abdominal wall: Unremarkable. IMPRESSION: 1. Left adrenal mass which demonstrates microscopic and macroscopic fat findings. These could repres ent a collision tumor with at least one of the tumors representing a myelolipoma and the other possib ly representing lipid rich adenoma versus angiomyolipoma the adrenal gland.. Urology consultation rec ommended for management is recommended. 2. Postcholecystectomy changes with likely physiologic dilation of the biliary system. 3. Hepatic steatosis. [facility], , 07/10/2024 12:11 PM
== END | disposition home or self-care (01) ==
LOC: RADMRIMAIN 10:00
PROVIDERS: ATTEND Internal Medicine Hematology & Oncology
DX: Q89.1 Congenital malformations of adrenal gland (principal); E27.9 Disorder of adrenal gland, unspecified; K76.0 Fatty (change of) liver, not elsewhere classified; Z90.49 Acquired absence of other specified parts of digestive tract
CPT/HCPCS: 74183; A9585

== ENCOUNTER 2024-07-25 20:28 | Inpatient (IN) | payer MEDICARE, OTHER ==
--- NOTE | 2024-07-25 22:30 | ED ---
Female Urogenital HPI - General Chief complaint: Urogenital Stated complaint: urogenital Time Seen by Provider: 07/25/24 22:12 Source: patient Mode of arrival: ambulatory Limitations: no limitations - History of Present Illness Initial comments: Patient is a 54-year-old woman who presents with complaint that she believes she has urinary tract infection. She has been having frequency, urgency, dysuria going back to last week. She states that she was seen in her physician's clinic, she had urinalysis, she was given Macrobid to take, and then she rec eived a call that told her there was suspected to be resistance to Macrobid. The patient arrives here continuing to have urinary symptoms. She has not noted fever or chills. MD Complaint: dysuria -: week(s) Location: suprapubic Radiation: non-radiating Severity: moderate Quality: burning Consistency: constant Improves with: none Worsens with: urination Patient : No - Related Data Home Medications Medication Instructions Recorded Confirmed DULoxetine HCL [Cymbalta] 60 mg PO BID 04/01/19 07/26/24 traZODone HCL 100 mg PO HS 12/03/19 07/26/24 Apixaban [Eliquis] 5 mg PO BID 12/17/19 07/26/24 Hydrocortisone [Cortef] 30 mg PO DAILY 10/07/20 07/26/24 Morphine Sulfate ER [Ms Contin] 15 mg PO Q12H 10/07/20 07/26/24 Hydrocortisone [Cortef] 10 mg PO HS 04/26/21 07/26/24 Albuterol Sulfate [Proair Hfa] 2 puff INHALATION RT-Q6H PRN 05/05/22 07/26/24 Amitriptyline HCl [Elavil] 100 mg PO HS 05/05/22 07/26/24 Ergocalciferol [Vitamin D2 (1250 1,250 mcg PO FR 05/05/22 07/26/24 Mcg = 41626 Iu)] Omeprazole 20 mg PO DAILY 05/05/22 07/26/24 Levothyroxine Sodium [Synthroid] 100 mcg PO DAILY 05/31/23 07/26/24 Pregabalin [Lyrica] 200 mg PO TID 05/31/23 07/26/24 oxyCODONE-APAP 10-325MG [Percocet 1 tab PO Q6H PRN 05/31/23 07/26/24 10-325 mg] ondansetron HCL [Zofran] 8 mg PO Q8HR PRN 07/03/23 07/26/24 Celecoxib [CeleBREX] 200 mg PO DAILY 04/23/24 07/26/24 Cyclobenzaprine [Flexeril] 5 mg PO BID 04/23/24 07/26/24 Dextroamphetamine/Amphetamine 15 mg PO BID 04/23/24 07/26/24 [Adderall] Fluticasone Propion/Salmeterol 1 puff INHALATION RT-BID 04/23/24 07/26/24 [Advair 250-50 Diskus] Montelukast [Singulair] 10 mg PO DAILY 04/23/24 07/26/24 Ocrelizumab [Ocrevus] 600 mg IV Q180D 04/23/24 07/26/24 Semaglutide [Ozempic] 2 mg SQ FR 04/23/24 07/26/24 Albuterol Nebulized [Ventolin 2.5 mg INHALATION RT-Q4H PRN 07/26/24 07/26/24 Nebulized] Lidocaine-Prilocaine Cream [Emla 1 applic TOPICAL DAILY PRN 07/26/24 07/26/24 Cream 2.5%/2.5%] Meclizine [Antivert] 25 mg PO TID PRN 07/26/24 07/26/24 Memantine [Namenda] 10 mg PO DAILY 07/26/24 07/26/24 Solu-Medrol 125mg/2ml Solution 1 dose IM Q180D 07/26/24 07/26/24 fentaNYL 12MCG/HR PATCH [Duragesic 1 patch TRANSDERM Q72H 07/26/24 07/26/24 12MCG/HR] rOPINIRole HCL [Requip] 0.5 mg PO BID PRN 07/26/24 07/26/24 Previous Rx's Medication Instructions Recorded Magnesium Oxide [Mag-Ox] 400 mg PO BID tab 05/05/24 Nicotine 21Mg/24Hr Patch [Habitrol] 1 patch TRANSDERM DAILY patch 05/05/24 cefuroxime axetiL [Ceftin] 500 mg PO BID 10 Days #20 tab 07/29/24 Allergies Allergy/AdvReac Type Severity Reaction Status Date / Time amoxicillin [From Augmentin] Allergy Diarrhea, Verified 07/26/24 10:15 hives clavulanic acid Allergy Diarrhea, Verified 07/26/24 10:15 [From Augmentin] hives doxycycline Allergy Rash/Hives Verified 07/26/24 10:15 glatiramer (copolymer 1) Allergy Rapid Verified 07/26/24 10:15 [From Copaxone] Heart Rate,hives, skin flushing sulfamethoxazole Allergy blisters Verified 07/26/24 10:15 [From Bactrim] in mouth, rash/hives trimethoprim [From Bactrim] Allergy blisters Verified 07/26/24 10:15 in mouth, rash/hives steroids AdvReac genital Uncoded 07/26/24 10:15 burning & rashes but still takes steroids. Review of Systems ROS Statement: Those systems with pertinent positive or pertinent negative responses have been documented in the HPI. ROS Other: All systems not noted in ROS Statement are negative. Constitutional: Denies: fever, chills Respiratory: Denies: cough, dyspnea Cardiovascular: Denies: chest pain, palpitations, edema Gastrointestinal: Reports: as per HPI, abdominal pain. Denies: nausea, vomiting, diarrhea, constipation Genitourinary: Reports: urgency, dysuria, frequency. Denies: discharge, abnormal menses Musculoskeletal: Denies: back pain Skin: Denies: rash Neurological: Denies: headache, weakness Past Medical History Past Medical History: Asthma, Blood Disorder, Heart Failure, COPD, Deep Vein Thrombosis (DVT), Eye Disorder, Fibromyalgia, GERD/Reflux, Hearing Disorder / Deafness, Hyperlipidemia, Memory Impairment, Musculoskeletal Disorder, Neurologic Disorder, Osteoarthritis (OA), Pneumonia, Renal Disease, Skin Disorder, Sleep Apnea/CPAP/BIPAP, Syncope, Thyroid Disorder Additional Past Medical History / Comment(s): Multiple sclerosis, factor 5 leiden, RUBI-no device, DVT L leg 2013, hiatal hernia, hoarseness/leukoplakia, adrenal insufficiency/chronic steroid use/pituitary tumor, migraines, DJD, chronic back pain, bursitis, optic neuritis bilaterally, glaucoma , tinnitis, rosacea, insomnia, hypersomnia. bilat CTS, peripheral neuropathy, vertigo. hx infection at back surgery site, adrenal mass History of Any Multi-Drug Resistant Organisms: ESBL Date of last positivie culture/infection: 10/01/23 ESBL MDRO Source:: Urine Past Surgical History: Back Surgery, Bladder Surgery, Section, Cholecystectomy, Tubal Ligation Additional Past Surgical History / Comment(s): 09/24/18 bladder stimulator, redone 09/2020. 02/05/19 microlarygoscopy/bx, vocal cord polypectomies, cervical bx, bladder suspension, EGD with bx, colonoscopy,. Laminectomy w/ decompression (01/09/20), Drainage of seroma back (02/02/20), removal spinal hardware, I&D back wound,. PICC line. Past Anesthesia/Blood Transfusion Reactions: Motion Sickness Additional Past Anesthesia/Blood Transfusion Reaction / Comment(s): occasional bad headaches. Past Psychological History: ADD/ADHD, Anxiety, Depression Smoking Status: Current every day smoker, Vaper Past Alcohol Use History: None Reported Past Drug Use History: None Reported - Past Family History Brother(s) Family Medical History: Deep Vein Thrombosis (DVT) Father Family Medical History: Deep Vein Thrombosis (DVT) Additional Family Medical History / Comment(s): Patient states that her father has no cardiac history but his father had previous OH's. Mother Family Medical History: Cancer, Deep Vein Thrombosis (DVT), Pulmonary Embolus Additional Family Medical History / Comment(s): Cervical cancer. General Exam Limitations: no limitations General appearance: alert, in no apparent distress Head exam: Present: atraumatic, normocephalic Eye exam: Present: normal appearance. Absent: scleral icterus, conjunctival injection ENT exam: Present: normal oropharynx Neck exam: Present: normal inspection Respiratory exam: Present: normal lung sounds bilaterally. Absent: respiratory distress, wheezes, rales, rhonchi, stridor, accessory muscle use Cardiovascular Exam: Present: regular rate, normal rhythm, normal heart sounds. Absent: systolic murmur, diastolic murmur, rubs, gallop GI/Abdominal exam: Present: soft. Absent: distended, tenderness, guarding, rebound, rigid, mass Extremities exam: Present: normal inspection, normal capillary refill. Absent: pedal edema, calf tenderness Back exam: Present: normal inspection. Absent: CVA tenderness (R), CVA tender ness (L) Neurological exam: Present: alert Skin exam: Present: warm, dry, intact, normal color. Absent: rash Course Vital Signs 07/25/24 07/26/24 07/26/24 20:40 06:58 07:49 Temperature 98.9 F 97.2 F L 98.1 F Pulse Rate 96 75 84 Respiratory 18 18 22 Rate Blood Pressure 116/69 112/65 112/65 O2 Sat by Pulse 96 94 L 96 Oximetry 07/26/24 07/26/24 07/26/24 14:00 15:48 17:20 Temperature 98.0 F 97.7 F Pulse Rate 76 73 73 Respiratory 16 18 18 Rate Blood Pressure 101/63 104/61 110/71 O2 Sat by Pulse 95 96 94 L Oximetry Medical Decision Making - Medical Decision Making Was pt. sent in by a medical professional or institution ([facility], [employer], urgent care, hospital, or half-way...) When possible be specific @ -[No] Did you speak to anyone other than the patient for history (EMS, parent, family, police, friend...)? What history was obtained from this source @ -[No] Did you review nursing and triage notes (agree or disagree)? Why? @ -[I reviewed and agree with nursing and triage notes] Were old charts reviewed (outside hosp., previous admission, EMS record, old EKG, old radiological studies, urgent care reports/EKG's, half-way records)? Report findings @ -[No old charts were reviewed] Differential Diagnosis (chest pain, altered mental status, abdominal pain women, abdominal pain men, vaginal bleeding, weakness, fever, dyspnea, syncope, headache, dizziness, GI bleed, back pain, seizure, CVA, palpatations, mental health, musculoskeletal)? @ -[Differential Abdominal Pain Women: Appendicitis, Cholecystitis, diverticulosis, ischemic bowel, pancreatitis, hepatitis, UTI, gastroenteritis, AAA, incarcerated hernia, bowel obstruction, constipation, inflammatory bowel, hepatitis, peptic ulcer disease, splenic infarction, perforated viscus, vulvitis, ovarian torsion, PID, kidney stone, placenta abruption, this is not meant to be an all-inclusive list EKG interpreted by me (3pts min.). @ -[As above] X-rays interpreted by me (1pt min.). @ -[None done] CT interpreted by me (1pt min.). @ -[None done] U/S interpreted by me (1pt. min.). @ -[None done] What testing was considered but not performed or refused? (CT, X-rays, U/S, labs)? Why? @ -[None] What meds were considered but not given or refused? Why? @ -[None] Did you discuss the management of the patient with other professionals (professionals i.e. DrMayra, PA, [employer], lab, RT, psych nurse, manager social, chronograph operator, teacher, chemical instrumentation officer, director of casework services)? Give summary @ -[No] Was smoking cessation discussed for >3mins.? @ -[No] Was critical care preformed (if so, how long)? @ -[No] Were there social determinants of health that impacted care today? How? (Homelessness, low income, unemployed, alcoholism, drug addiction, transportation, low edu. Level, literacy, decrease access to med. care, [facility], rehab)? @ -[No] Was there de-escalation of care discussed even if they declined (Discuss DNR or withdrawal of care, Hospice)? DNR status @ -[No] What co-morbidities impacted this encounter? (DM, HTN, Smoking, COPD, CAD, Cancer, CVA, ARF, Chemo, Hep., AIDS, mental health diagnosis, sleep apnea, morbid obesity)? @ -[History of multiple previous urinary tract infections Was patient admitted / discharged? Hospital course, mention meds given and route, prescriptions, significant lab abnormalities, going to OR and other pertinent info. @ -[This patient is a 54-year-old woman who arrives here reportedly with fa ilure of Macrobid to treat urinary tract infection. Patient will be admitted and as she does have multiple drug allergies will have infectious disease consultation. Undiagnosed new problem with uncertain prognosis? @ -[No] Drug Therapy requiring intensive monitoring for toxicity (Heparin, Nitro, I nsulin, Cardizem)? @ -[No] Were any procedures done? @ -[No] Diagnosis/symptom? @ -[Urinary tract infection Failure of outpatient therapy Acute, or Chronic, or Acute on Chronic? @ -[Acute Uncomplicated (without systemic symptoms) or Complicated (systemic symptoms)? @ -[Uncomplicated Side effects of treatment? @ -[No] Exacerbation, Progression, or Severe Exacerbation? @ -[No] Poses a threat to life or bodily function? How? (Chest pain, [place], [place], pneumonia, PE, COPD, DKA, ARF, appy, cholecystitis, CVA, Diverticulitis, Homicidal, Suicidal, threat to staff... and all critical care pts) @ -[No] - Lab Data Result diagrams: 07/29/24 05:14 07/29/24 05:14 Lab Results 07/25/24 07/25/24 07/25/24 Range/Units 22:58 22:58 22:58 WBC 15.2 H (3.8-10.6) k/uL RBC 5.18 (3.80-5.40) m/uL Hgb 12.2 (11.4-16.0) gm/dL Hct 39.5 (34.0-46.0) % MCV 76.2 L (80.0-100.0) fL MCH 23.5 L (25.0-35.0) pg MCHC 30.8 L (31.0-37.0) g/dL RDW 18.1 H (11.5-15.5) % Plt Count 333 (150-450) k/uL MPV 8.1 Neutrophils % 73 % Lymphocytes % 20 % Monocytes % 4 % Eosinophils % 1 % Basophils % 0 % Neutrophils # 11.1 H (1.3-7.7) k/uL Lymphocytes # 3.0 (1.0-4.8) k/uL Monocytes # 0.7 (0-1.0) k/uL Eosinophils # 0.2 (0-0.7) k/uL Basophils # 0.1 (0-0.2) k/uL Hypochromasia Slight Anisocytosis Slight Microcytosis Moderate Sodium (137-145) mmol/L Potassium (3.5-5.1) mmol/L Chloride (98-107) mmol/L Carbon Dioxide (22-30) mmol/L Anion Gap mmol/L BUN (7-17) mg/dL Creatinine (0.52-1.04) mg/dL Est GFR (CKD-EPI)AfAm (>60 ml/min/1.73 sqM) Est GFR (CKD-EPI)NonAf (>60 ml/min/1.73 sqM) Glucose (74-99) mg/dL Calcium (8.4-10.2) mg/dL Total Bilirubin (0.2-1.3) mg/dL AST (14-36) U/L ALT (4-34) U/L Alkaline Phosphatase (38-126) U/L C-Reactive Protein (<1.0) mg/dL Total Protein (6.3-8.2) g/dL Albumin (3.5-5.0) g/dL Urine Color Light Yellow Urine Appearance Cloudy H (Clear) Urine pH 5.0 (5.0-8.0) Ur Specific Lotus 1.015 (1.001-1.035) Urine Protein Negative (Negative) Urine Glucose (UA) Negative (Negative) Urine Ketones Negative (Negative) Urine Blood Negative (Negative) Urine Nitrite Positive H (Negative) Urine Bilirubin Negative (Negative) Urine Urobilinogen <2.0 (<2.0) mg/dL Ur Leukocyte Esterase Large H (Negative) Urine RBC 5 (0-5) /hpf Urine WBC 61 H (0-5) /hpf Urine WBC Clumps Few H (None) /hpf Ur Squamous Epith Cells 6 H (0-4) /hpf Urine Bacteria Rare H (None) /hpf Hyaline Casts 6 H (0-2) /lpf Urine Mucus Rare H (None) /hpf Urine Yeast (Budding) Occasional H (None) /hpf Urine HCG, Qual Not Detected (Not Detectd) 07/25/24 Range/Units 22:58 WBC (3.8-10.6) k/uL RBC (3.80-5.40) m/uL Hgb (11.4-16.0) gm/dL Hct (34.0-46.0) % MCV (80.0-100.0) fL MCH (25.0-35.0) pg MCHC (31.0-37.0) g/dL RDW (11.5-15.5) % Plt Count (150-450) k/uL MPV Neutrophils % % Lymphocytes % % Monocytes % % Eosinophils % % Basophils % % Neutrophils # (1.3-7.7) k/uL Lymphocytes # (1.0-4.8) k/uL Monocytes # (0-1.0) k/uL Eosinophils # (0-0.7) k/uL Basophils # (0-0.2) k/uL Hypochromasia Anisocytosis Microcytosis Sodium 135 L (137-145) mmol/L Potassium 5.0 (3.5-5.1) mmol/L Chloride 103 (98-107) mmol/L Carbon Dioxide 32 H (22-30) mmol/L Anion Gap 0 mmol/L BUN 21 H (7-17) mg/dL Creatinine 1.05 H (0.52-1.04) mg/dL Est GFR (CKD-EPI)AfAm 70 (>60 ml/min/1.73 sqM) Est GFR (CKD-EPI)NonAf 60 (>60 ml/min/1.73 sqM) Glucose 93 (74-99) mg/dL Calcium 9.3 (8.4-10.2) mg/dL Total Bilirubin 0.4 (0.2-1.3) mg/dL AST 24 (14-36) U/L ALT 17 (4-34) U/L Alkaline Phosphatase 67 (38-126) U/L C-Reactive Protein 3.6 H (<1.0) mg/dL Total Protein 6.3 (6.3-8.2) g/dL Albumin 4.1 (3.5-5.0) g/dL Urine Color Urine Appearance (Clear) Urine pH (5.0-8.0) Ur Specific Lotus (1.001-1.035) Urine Protein (Negative) Urine Glucose (UA) (Negative) Urine Ketones (Negative) Urine Blood (Negative) Urine Nitrite (Negative) Urine Bilirubin (Negative) Urine Urobilinogen (<2.0) mg/dL Ur Leukocyte Esterase (Negative) Urine RBC (0-5) /hpf Urine WBC (0-5) /hpf Urine WBC Clumps (None) /hpf Ur Squamous Epith Cells (0-4) /hpf Urine Bacteria (None) /hpf Hyaline Casts (0-2) /lpf Urine Mucus (None) /hpf Urine Yeast (Budding) (None) /hpf Urine HCG, Qual (Not Detectd) Disposition Clinical Impression: UTI (urinary tract infection) Disposition: ADMITTED IP TO THIS HOSP Condition: Stable
[2024-07-25] MEDS: HYDROcodone/APAP 5-325MG 1 EACH TAB PO STA (23:01)
[2024-07-25 23:45] LABS: ALT 17 U/L (4-34); AST 24 U/L (14-36); African American GFR (CKD) 70 (>60 ml/min/1.73 sqM); Albumin 4.1 g/dL (3.5-5.0); Alkaline Phosphatase 67 U/L (38-126); Anion Gap 0 mmol/L; Blood Urea Nitrogen 21 mg/dL (7-17); C Reactive Protein 3.6 mg/dL (<1.0); Calcium 9.3 mg/dL (8.4-10.2); Carbon Dioxide 32 mmol/L (22-30); Chloride 103 mmol/L (98-107); Glucose 93 mg/dL (74-99); Non-African American GFR(CKD) 60 (>60 ml/min/1.73 sqM); Sodium 135 mmol/L (137-145); Total Bilirubin 0.4 mg/dL (0.2-1.3); Total Protein 6.3 g/dL (6.3-8.2)
[2024-07-25 23:46] LABS: Appearance,Urine Cloudy (Clear); Bacteria,Urine Rare /hpf; Bilirubin,Urine Negative (Negative); Blood,Urine Negative (Negative); Budding Yeast,Urine Occasional /hpf; Color,Urine Light Yellow; Glucose,Urine (UA) Negative (Negative); Hyaline Casts,Urine 6 /lpf (0-2); Ketones,Urine Negative (Negative); Leukocyte Esterase,Urine Large (Negative); Mucus,Urine Rare /hpf; Nitrite,Urine Positive (Negative); Protein,Urine Negative (Negative); RBC,Urine 5 /hpf (0-5); Specific Gravity,Urine 1.015 (1.001-1.035); Squamous Epithelial Cell,Urine 6 /hpf (0-4); Urobilinogen,Urine <2.0 mg/dL (<2.0); WBC,Urine 61 /hpf (0-5)
[2024-07-26 00:15] LABS: Anisocytosis Slight; Basophils # (A) 0.1 k/uL (0-0.2); Basophils % (A) 0 %; Eosinophils # (A) 0.2 k/uL (0-0.7); Eosinophils % (A) 1 %; HCT 39.5 % (34.0-46.0); HGB 12.2 gm/dL (11.4-16.0); Hypochromasia Slight; Lymphocytes % (A) 20 %; MCH 23.5 pg (25.0-35.0); MCHC 30.8 g/dL (31.0-37.0); MCV 76.2 fL (80.0-100.0); Mean Platelet Volume 8.1; Microcytosis Moderate; Monocytes # (A) 0.7 k/uL (0-1.0); Monocytes % (A) 4 %; Neutrophils # (A) 11.1 k/uL (1.3-7.7); Neutrophils % (A) 73 %; Platelet Count 333 k/uL (150-450); RBC 5.18 m/uL (3.80-5.40); RDW 18.1 % (11.5-15.5); WBC 15.2 k/uL (3.8-10.6)
[2024-07-26] MEDS ORDERED: HYDROcodone/APAP 5-325MG 1 EACH TAB PO PRN (02:46)
[2024-07-26] MEDS ORDERED: NALOXONE 0.4 MG/ML 1 ML VIAL IV PRN (02:46)
[2024-07-26] MEDS ORDERED: MAG HYDROX/AL HYDROX/SIMETH 30 ML CUP PO PRN (02:46)
[2024-07-26] MEDS: PHENAZOPYRIDINE 100 MG TAB PO STA (02:55)
[2024-07-26] MEDS: SODIUM CHLORIDE 0.9% 1,000 ML IV SCH ×2 (02:56→13:39)
[2024-07-26] MEDS: oxyCODONE-APAP 7.5-325MG 1 EACH TAB PO SCH (04:09)
[2024-07-26] MEDS: LEVOFLOXACIN 750MG-D5W PMX 750 MG in DEXTROSE/WATER 1 150ML.BAG IVPB STA (04:10)
[2024-07-26] MEDS: FAMOTIDINE 20 MG TAB PO SCH (08:07)
--- NOTE | 2024-07-26 09:38 | US ---
EXAMINATION TYPE: US renals and bladder DATE OF EXAM: 07/26/2024 COMPARISON: MRI & CT & US 2023 CLINICAL INDICATION: Female, 54 years old with history of uti; TECHNIQUE: Grayscale imaging of the bilateral kidneys and urinary bladder: FINDINGS: EXAM MEASUREMENTS: Right Kidney: 10.9 x 5.1 x 4.6 cm Left Kidney: 10.2 x 5.3 x 4.8 cm Right Kidney: No hydronephrosis or masses seen Left Kidney: No hydronephrosis or masses seen Bladder: wnl Bilateral Jets seen: No There is no evidence for hydronephrosis at this point in time. No nephrolithiasis is seen. No francisco s are identified. The urinary bladder is anechoic. IMPRESSION: No significant abnormality seen but no interval change. There is no renal calcification or hydronephrosis. [facility], Workstation: [id number] 07/26/2024 9:36 AM
--- NOTE | 2024-07-26 12:34 | P.HPIM ---
History of Present Illness This is a pleasant 54 years old female with past medical history of multiple medical problems Who presents with UTI-like symptoms of burning urination, increased frequency of urination and incomplete emptying of her bladder. Her symptoms has been going on for about 2 weeks. She went to see her PCP Dr. Palomino who prescribed her oral antibiotic however she got a call yesterday that culture is growing ESBL bacteria and referred to the hospital. Patient states that she had ESBL infection before. Like the culture from 10/04/2023 She is complaining from mild suprapubic pain and tenderness Patient states that she has been having fever 103.4 at home Also complaining from left groin tenderness but she has been worked up by her PCP Dr. Palomino, as per patient she had a CAT scan will where they found tumor, she thinks it is in the adrenal gland and she was referred to oncologist Dr. Hurst as she explained who wanted to check MRI prior to seeing her and she is still in the process of finishing her workup Patient also admits to smoking cigarettes less than half pack per day and she was counseled to quit and she agrees and she agrees to the nicotine patch as well she denies alcohol or illicit drug She denies alcohol or illicit drugs Patient is afebrile in the hospital. She has mild leukocytosis of 15.2, rest of CBC is unremarkable. Sodium is 135, creatinine 1.05 Urine analysis is suspicious for infection with large leukocyte esterase and positive nitrite Renal ultrasound is negative for acute process and no hydronephrosis Patient received Levaquin in the emergency room Review of Systems Review of systems CONSTITUTIONAL: No fever, no malaise, no fatigue. HEENT: No recent visual problems or hearing problems. Denied any sore throat. CARDIOVASCULAR: No orthopnea, PND, no palpitations, no syncope. PULMONARY: No shortness of breath, no cough, no hemoptysis. GASTROINTESTINAL: No diarrhea, no nausea, no vomiting, Normoactive bowel sounds. NEUROLOGICAL: No headaches, no weakness, no numbness. HEMATOLOGICAL: Denies any bleeding or petechiae. GENITOURINARY: Denies any burning micturition, frequency, or urgency. MUSCULOSKELETAL/RHEUMATOLOGICAL: Denies any joint pain, swelling, or any muscle pain. ENDOCRINE: Denies any polyuria or polydipsia. Past Medical History Past Medical History: Asthma, Blood Disorder, Heart Failure, COPD, Deep Vein Thrombosis (DVT), Eye Disorder, Fibromyalgia, GERD/Reflux, Hearing Disorder / Deafness, Hyperlipidemia, Memory Impairment, Musculoskeletal Disorder, Neurologic Disorder, Osteoarthritis (OA), Pneumonia, Renal Disease, Skin Disorder, Sleep Apnea/CPAP/BIPAP, Syncope, Thyroid Disorder Additional Past Medical History / Comment(s): Multiple sclerosis, factor 5 leiden, RUBI-no device, DVT L leg 2014, hiatal hernia, hoarseness/leukoplakia, adrenal insufficiency/chronic steroid use/pituitary tumor, migraines, DJD, chronic back pain, bursitis, optic neuritis bilaterally, glaucoma , tinnitis, rosacea, insomnia, hypersomnia. bilat CTS, peripheral neuropathy, vertigo. hx i nfection at back surgery site, adrenal mass History of Any Multi-Drug Resistant Organisms: ESBL Date of last positivie culture/infection: 10/01/23 ESBL MDRO Source:: Urine Past Surgical History: Back Surgery, Bladder Surgery, Section, Cholecystectomy, Tubal Ligation Additional Past Surgical History / Comment(s): 09/24/18 bladder stimulator, redone 09/2020. 02/05/19 microlarygoscopy/bx, vocal cord polypectomies, cervical bx, bladder suspension, EGD with bx, colonoscopy,. Laminectomy w/ decompression (01/09/20), Drainage of seroma back (02/02/20), removal spinal hardware, I&D back wound,. PICC line. Past Anesthesia/Blood Transfusion Reactions: Motion Sickness Additional Past Anesthesia/Blood Transfusion Reaction / Comment(s): occasional bad headaches. Past Psychological History: ADD/ADHD, Anxiety, Depression Smoking Status: Current every day smoker, Vaper Past Alcohol Use History: None Reported Past Drug Use History: None Reported - Past Family History Brother(s) Family Medical History: Deep Vein Thrombosis (DVT) Father Family Medical History: Deep Vein Thrombosis (DVT) Additional Family Medical History / Comment(s): Patient states that her father has no cardiac history but his father had previous [place]'s. Mother Family Medical History: Cancer, Deep Vein Thrombosis (DVT), Pulmonary Embolus Additional Family Medical History / Comment(s): Cervical cancer. Medications and Allergies Home Medications Medication Instructions Recorded Confirmed Type DULoxetine HCL [Cymbalta] 60 mg PO BID 04/01/19 07/26/24 History traZODone HCL 100 mg PO HS 12/03/19 07/26/24 History Apixaban [Eliquis] 5 mg PO BID 12/17/19 07/26/24 History Hydrocortisone [Cortef] 30 mg PO DAILY 10/07/20 07/26/24 History Morphine Sulfate ER [Ms Contin] 15 mg PO Q12H 10/07/20 07/26/24 History Hydrocortisone [Cortef] 10 mg PO HS 04/26/21 07/26/24 History Albuterol Sulfate [Proair Hfa] 2 puff INHALATION RT-Q6H PRN 05/05/22 07/26/24 History Amitriptyline HCl [Elavil] 100 mg PO HS 05/05/22 07/26/24 History Ergocalciferol [Vitamin D2 (1250 1,250 mcg PO FR 05/05/22 07/26/24 History Mcg = 77423 Iu)] Omeprazole 20 mg PO DAILY 05/05/22 07/26/24 History Levothyroxine Sodium [Synthroid] 100 mcg PO DAILY 05/31/23 07/26/24 History Pregabalin [Lyrica] 200 mg PO TID 05/31/23 07/26/24 History oxyCODONE-APAP 10-325MG [Percocet 1 tab PO Q6H PRN 05/31/23 07/26/24 History 10-325 mg] ondansetron HCL [Zofran] 8 mg PO Q8HR PRN 07/03/23 07/26/24 History Celecoxib [CeleBREX] 200 mg PO DAILY 04/23/24 07/26/24 History Cyclobenzaprine [Flexeril] 5 mg PO BID 04/23/24 07/26/24 History Dextroamphetamine/Amphetamine 15 mg PO BID 04/23/24 07/26/24 History [Adderall] Fluticasone Propion/Salmeterol 1 puff INHALATION RT-BID 04/23/24 07/26/24 History [Advair 250-50 Diskus] Montelukast [Singulair] 10 mg PO DAILY 04/23/24 07/26/24 History Ocrelizumab [Ocrevus] 600 mg IV Q180D 04/23/24 07/26/24 History Semaglutide [Ozempic] 2 mg SQ FR 04/23/24 07/26/24 History Magnesium Oxide [Mag-Ox] 400 mg PO BID tab 05/05/24 07/26/24 Rx Nicotine 21Mg/24Hr Patch [Habitrol] 1 patch TRANSDERM DAILY patch 05/05/24 07/26/24 Rx Albuterol Nebulized [Ventolin 2.5 mg INHALATION RT-Q4H PRN 07/26/24 07/26/24 History Nebulized] Lidocaine-Prilocaine Cream [Emla 1 applic TOPICAL DAILY PRN 07/26/24 07/26/24 History Cream 2.5%/2.5%] Meclizine [Antivert] 25 mg PO TID PRN 07/26/24 07/26/24 History Memantine [Namenda] 10 mg PO DAILY 07/26/24 07/26/24 History Solu-Medrol 125mg/2ml Solution 1 dose IM Q180D 07/26/24 07/26/24 History fentaNYL 12MCG/HR PATCH [Duragesic 1 patch TRANSDERM Q72H 07/26/24 07/26/24 History 12MCG/HR] rOPINIRole HCL [Requip] 0.5 mg PO BID PRN 07/26/24 07/26/24 History Allergies Allergy/AdvReac Type Severity Reaction Status Date / Time amoxicillin [From Augmentin] Allergy Diarrhea, Verified 07/26/24 10:15 hives clavulanic acid Allergy Diarrhea, Verified 07/26/24 10:15 [From Augmentin] hives doxycycline Allergy Rash/Hives Verified 07/26/24 10:15 glatiramer (copolymer 1) Allergy Rapid Verified 07/26/24 10:15 [From Copaxone] Heart Rate,hives, skin flushing sulfamethoxazole Allergy blisters Verified 07/26/24 10:15 [From Bactrim] in mouth, rash/hives trimethoprim [From Bactrim] Allergy blisters Verified 07/26/24 10:15 in mouth, rash/hives steroids AdvReac genital Uncoded 07/26/24 10:15 burning & rashes but still takes steroids. Physical Exam Vitals: Vital Signs Temp Pulse Resp BP Pulse Ox 07/26/24 07:49 98.1 F 84 22 112/65 96 07/26/24 06:58 97.2 F L 75 18 112/65 94 L 07/25/24 20:40 98.9 F 96 18 116/69 96 Intake and Output 07/25/24 07/26/24 07/26/24 22:59 06:59 14:59 Other: Weight 104.326 kg (Examination of the patient done in the presence of the bedside nurse and after patient gave verbal consent) -GENERAL: The patient is alert and oriented x3, not in any acute distress. Well developed, well nourished. Obese HEENT: Pupils are round and equally reacting to light. EOMI. No scleral icterus. No conjunctival pallor. Normocephalic, atraumatic. No pharyngeal erythema. No thyromegaly. CARDIOVASCULAR: S1 and S2 present. No murmurs, rubs, or gallops. PULMONARY: Chest is clear to auscultation, no wheezing , no crackles. -ABDOMEN: Soft, nont mild suprapubic tenderness nondistended, normoactive bowel sounds. No palpable organomegaly. Left groin tenderness, mild, no rash MUSCULOSKELETAL: No joint swelling or deformity. EXTREMITIES: No cyanosis, clubbing, or pedal edema. NEUROLOGICAL: Gross neurological examination did not reveal any focal deficits. SKIN: No rashes. no petechiae. Results CBC & Chem 7: 07/25/24 22:58 07/25/24 22:58 Labs: Abnormal Lab Results - Last 24 Hours (Table) 07/25/24 07/25/24 07/25/24 Range/Units 22:58 22:58 22:58 WBC 15.2 H (3.8-10.6) k/uL MCV 76.2 L (80.0-100.0) fL MCH 23.5 L (25.0-35.0) pg MCHC 30.8 L (31.0-37.0) g/dL RDW 18.1 H (11.5-15.5) % Neutrophils # 11.1 H (1.3-7.7) k/uL Sodium 135 L (137-145) mmol/L Carbon Dioxide 32 H (22-30) mmol/L BUN 21 H (7-17) mg/dL Creatinine 1.05 H (0.52-1.04) mg/dL C-Reactive Protein 3.6 H (<1.0) mg/dL Urine Appearance Cloudy H (Clear) Urine Nitrite Positive H (Negative) Ur Leukocyte Esterase Large H (Negative) Urine WBC 61 H (0-5) /hpf Urine WBC Clumps Few H (None) /hpf Ur Squamous Epith Cells 6 H (0-4) /hpf Urine Bacteria Rare H (None) /hpf Hyaline Casts 6 H (0-2) /lpf Urine Mucus Rare H (None) /hpf Urine Yeast (Budding) Occasional H (None) /hpf Assessment and Plan Assessment: Acute urinary tract infection x 2-week. Culture from the office suspicious for ESBL bacteria History of ESBL UTI before Nicotine dependence History of left adrenal tumor as per patient, she is going to follow-up with Dr. Hurst Obesity with BMI of 36 Plan: Continue with antibiotic Patient received Levaquin in the emergency room, given her multiple drug allergies we will defer to the infectious disease team were consulted Renal ultrasound reviewed Continue with IV fluid Patient needs to follow-up with her oncologist as an outpatient regarding her tumor, she agrees Labs and medication were reviewed.. Continue same treatment. Continue with symptomatic treatment. Resume home medication. Monitor labs and vitals. DVT and GI prophylaxis. Further recommendations as per clinical course of the patient DVT prophylaxis: Subcutaneous heparin GI Prophylaxis: Pepcid Prognosis is guarded
[2024-07-26] MEDS: NICOTINE 14MG/24HR PATCH TRANSDERM SCH (13:36)
[2024-07-26] MEDS: HEPARIN SODIUM,PORCINE 5,000 UNIT/ML 1 ML VIAL SQ SCH (15:52)
[2024-07-26] MEDS: ERTAPENEM 1 GM in SODIUM CHLORIDE 0.9% 50 ML IVPB SCH (16:16)
[2024-07-26] MEDS ORDERED: ALBUTEROL HFA INHALER INHALATION PRN (18:02)
[2024-07-26] MEDS ORDERED: ALBUTEROL NEBULIZED 2.5 MG/3 ML INHALATION PRN (18:02)
[2024-07-26] MEDS ORDERED: MECLIZINE 25 MG TAB PO PRN (18:02)
[2024-07-26] MEDS: KETOROLAC 15 MG/ML 1 ML VIAL IVP PRN (18:40)
[2024-07-26] MEDS: HYDROCORTISONE 10 MG TAB PO SCH (20:12)
[2024-07-26] MEDS: DULoxetine HCL 60 MG CAPSULE.DR PO SCH (20:12)
[2024-07-26] MEDS: MORPHINE SULFATE ER 15 MG TABLET PO SCH (20:12)
[2024-07-26] MEDS: traZODone HCL 100 MG TAB PO SCH (20:12)
[2024-07-26] MEDS: CYCLOBENZAPRINE 5 MG TAB PO SCH (20:12)
[2024-07-26] MEDS: AMITRIPTYLINE HCL 50 MG TAB PO SCH (20:12)
[2024-07-26] MEDS: APIXABAN 5 MG TAB PO SCH (20:12)
[2024-07-26] MEDS: PREGABALIN 100 MG CAP PO SCH (20:13)
[2024-07-26] MEDS: PHENAZOPYRIDINE 100 MG TAB PO SCH (20:58)
[2024-07-26] MEDS: DEXTROAMPHETAMINE PO SCH (21:59)
[2024-07-26] MEDS: AMPHETAMINE PO SCH (21:59)
[2024-07-26] MEDS: SYMBICORT 80-4.5 MCG INHALER INHALATION SCH (22:21)
[2024-07-27] MEDS ORDERED: LEVOFLOXACIN 500MG-D5W PMX 500 MG in DEXTROSE/WATER 1 100ML.BAG IVPB SCH (06:00)
[2024-07-27] MEDS: LEVOTHYROXINE 100 MCG TAB PO SCH (06:06)
[2024-07-27 08:58] LABS: Basophils # (A) 0.04 X 10*3/uL (0.00-0.10); Basophils % (A) 0.5 %; Eosinophils # (A) 0.14 X 10*3/uL (0.04-0.35); Eosinophils % (A) 1.9 %; HCT 40.7 % (37.2-46.3); HGB 12.2 g/dL (12.0-15.0); Lymphocytes # (A) 2.01 X 10*3/uL (0.90-5.00); Lymphocytes % (A) 27.5 %; MCH 23.6 pg (27.0-32.0); MCV 78.9 FL (80.0-97.0); Monocytes % (A) 6.8 %; NRBC Per 100 WBC 0 X 10*3/uL (0.00-0.01); Neutrophils # (A) 4.59 X 10*3/uL (1.80-7.70); Neutrophils % (A) 62.9 %; Platelet Count 282 X 10*3/uL (140-440); RBC 5.16 X 10*6/uL (4.10-5.20); RDW 19.1 % (11.5-14.5); WBC 7.31 X 10*3/uL (4.50-10.00)
[2024-07-27 09:31] LABS: Blood Urea Nitrogen 12.4 mg/dL (9.0-27.0); Calcium 8.9 mg/dL (8.7-10.3); Carbon Dioxide 28.3 mmol/L (21.6-31.8); Chloride 105 mmol/L (96-109); Glucose 117 mg/dL (70-110); Potassium 4.3 mmol/L (3.5-5.5); Sodium 142 mmol/L (135-145)
--- NOTE | 2024-07-27 09:43 | P.CONS ---
History of Present Illness - Reason for Consult Consult date: 07/26/24 UTI Requesting physician: Isiah E Sheet - Chief Complaint Urinary burning frequency x days - History of Present Illness Patient is a 54-year-old female with a past medical history significant for COPD fibromyalgia hyperlipidemia memory impairment history of recurrent UTIs, Patient apparently recently did have a evaluation in the outpatient setting by her primary care physician patient did have a positive UA concerning for UTI she was treated with oral Macrobid however the patient did not have improvement patient has been to the culture positive for ESBL and advised to go to the hospital patient complaining of fever and chills patient denies any headache or URI symptoms no chest pain shortness of the cough has been complaining of burning and frequency of urine but no hematuria no nausea no vomiting and no diarrhea on arrival to the ER the patient was afebrile patient was not tachycardic hypotensive or hypoxic patient did have white count of 15.2 with a left shift creatinine has been normal electrolytes are normal urine was positive urine hCG was negative patient was started on IV Levaquin because of her allergies infectious disease was consulted for further management of antibiotic therapy Review of Systems Positive point and negatives has been mentioned in the HPI, complete review of systems was performed and all other systems are negative Past Medical History Past Medical History: Asthma, Blood Disorder, Heart Failure, COPD, Deep Vein Thrombosis (DVT), Eye Disorder, Fibromyalgia, GERD/Reflux, Hearing Disorder / Deafness, Hyperlipidemia, Memory Impairment, Musculoskeletal Disorder, Neurologic Disorder, Osteoarthritis (OA), Pneumonia, Renal Disease, Skin Disorder, Sleep Apnea/CPAP/BIPAP, Syncope, Thyroid Disorder Additional Past Medical History / Comment(s): Multiple sclerosis, factor 5 leiden, RUBI-no device, DVT L leg 2013, hiatal hernia, hoarseness/leukoplakia, adrenal insufficiency/chronic steroid use/pituitary tumor, migraines, DJD, chronic back pain, bursitis, optic neuritis bilaterally, glaucoma , tinnitis, rosacea, insomnia, hypersomnia. bilat CTS, peripheral neuropathy, vertigo. hx infection at back surgery site, adrenal mass History of Any Multi-Drug Resistant Organisms: ESBL Year Discovered:: 10/01/23 ESBL MDRO Source:: Urine Past Surgical History: Back Surgery, Bladder Surgery, Section, Cholecystectomy, Tubal Ligation Additional Past Surgical History / Comment(s): 09/24/18 bladder stimulator, redone 09/2020. 02/05/19 microlarygoscopy/bx, vocal cord polypectomies, cervical bx, bladder suspension, EGD with bx, colonoscopy,. Laminectomy w/ decompression (01/09/20), Drainage of seroma back (02/02/20), removal spinal hardware, I&D back wound,. PICC line. Past Anesthesia/Blood Transfusion Reactions: Motion Sickness Additional Past Anesthesia/Blood Transfusion Reaction / Comm: occasional bad headaches. Past Psychological History: ADD/ADHD, Anxiety, Depression Smoking Status: Current every day smoker, Vaper Past Alcohol Use History: None Reported Past Drug Use History: None Reported - Past Family History Brother(s) Family Medical History: Deep Vein Thrombosis (DVT) Father Family Medical History: Deep Vein Thrombosis (DVT) Additional Family Medical History / Comment(s): Patient states that her father has no cardiac history but his father had previous [place]'s. Mother Family Medical History: Cancer, Deep Vein Thrombosis (DVT), Pulmonary Embolus Additional Family Medical History / Comment(s): Cervical cancer. Medications and Allergies Home Medications Medication Instructions Recorded Confirmed Type DULoxetine HCL [Cymbalta] 60 mg PO BID 04/01/19 07/26/24 History traZODone HCL 100 mg PO HS 12/03/19 07/26/24 History Apixaban [Eliquis] 5 mg PO BID 12/17/19 07/26/24 History Hydrocortisone [Cortef] 30 mg PO DAILY 10/07/20 07/26/24 History Morphine Sulfate ER [Ms Contin] 15 mg PO Q12H 10/07/20 07/26/24 History Hydrocortisone [Cortef] 10 mg PO HS 04/26/21 07/26/24 History Albuterol Sulfate [Proair Hfa] 2 puff INHALATION RT-Q6H PRN 05/05/22 07/26/24 History Amitriptyline HCl [Elavil] 100 mg PO HS 05/05/22 07/26/24 History Ergocalciferol [Vitamin D2 (1250 1,250 mcg PO FR 05/05/22 07/26/24 History Mcg = 88499 Iu)] Omeprazole 20 mg PO DAILY 05/05/22 07/26/24 History Levothyroxine Sodium [Synthroid] 100 mcg PO DAILY 05/31/23 07/26/24 History Pregabalin [Lyrica] 200 mg PO TID 05/31/23 07/26/24 History oxyCODONE-APAP 10-325MG [Percocet 1 tab PO Q6H PRN 05/31/23 07/26/24 History 10-325 mg] ondansetron HCL [Zofran] 8 mg PO Q8HR PRN 07/03/23 07/26/24 History Celecoxib [CeleBREX] 200 mg PO DAILY 04/23/24 07/26/24 History Cyclobenzaprine [Flexeril] 5 mg PO BID 04/23/24 07/26/24 History Dextroamphetamine/Amphetamine 15 mg PO BID 04/23/24 07/26/24 History [Adderall] Fluticasone Propion/Salmeterol 1 puff INHALATION RT-BID 04/23/24 07/26/24 History [Advair 250-50 Diskus] Montelukast [Singulair] 10 mg PO DAILY 04/23/24 07/26/24 History Ocrelizumab [Ocrevus] 600 mg IV Q180D 04/23/24 07/26/24 History Semaglutide [Ozempic] 2 mg SQ FR 04/23/24 07/26/24 History Magnesium Oxide [Mag-Ox] 400 mg PO BID tab 05/05/24 07/26/24 Rx Nicotine 21Mg/24Hr Patch [Habitrol] 1 patch TRANSDERM DAILY patch 05/05/24 07/26/24 Rx Albuterol Nebulized [Ventolin 2.5 mg INHALATION RT-Q4H PRN 07/26/24 07/26/24 History Nebulized] Lidocaine-Prilocaine Cream [Emla 1 applic TOPICAL DAILY PRN 07/26/24 07/26/24 History Cream 2.5%/2.5%] Meclizine [Antivert] 25 mg PO TID PRN 07/26/24 07/26/24 History Memantine [Namenda] 10 mg PO DAILY 07/26/24 07/26/24 History Solu-Medrol 125mg/2ml Solution 1 dose IM Q180D 07/26/24 07/26/24 History fentaNYL 12MCG/HR PATCH [Duragesic 1 patch TRANSDERM Q72H 07/26/24 07/26/24 History 12MCG/HR] rOPINIRole HCL [Requip] 0.5 mg PO BID PRN 07/26/24 07/26/24 History Allergies Allergy/AdvReac Type Severity Reaction Status Date / Time amoxicillin [From Augmentin] Allergy Diarrhea, Verified 07/26/24 10:15 hives clavulanic acid Allergy Diarrhea, Verified 07/26/24 10:15 [From Augmentin] hives doxycycline Allergy Rash/Hives Verified 07/26/24 10:15 glatiramer (copolymer 1) Allergy Rapid Verified 07/26/24 10:15 [From Copaxone] Heart Rate,hives, skin flushing sulfamethoxazole Allergy blisters Verified 07/26/24 10:15 [From Bactrim] in mouth, rash/hives trimethoprim [From Bactrim] Allergy blisters Verified 07/26/24 10:15 in mouth, rash/hives steroids AdvReac genital Uncoded 07/26/24 10:15 burning & rashes but still takes steroids. Physical Exam Vitals: Vital Signs Temp Pulse Resp BP Pulse Ox 07/26/24 07:49 98.1 F 84 22 112/65 96 07/26/24 06:58 97.2 F L 75 18 112/65 94 L 07/25/24 20:40 98.9 F 96 18 116/69 96 Intake and Output 07/25/24 07/26/24 07/26/24 22:59 06:59 14:59 Other: Weight 104.326 kg GENERAL DESCRIPTION: Middle-aged female lying in bed, no distress. No tachypnea or accessory muscle of respiration use. HEENT: Shows Pallor , no scleral icterus. Oral mucous membrane is dry. No pharyngeal erythema or thrush NECK: Trachea central, no thyromegaly. LUNGS: Unlabored breathing. Clear to auscultation anteriorly. No wheeze or crackle. HEART: S1, S2, regular rate and rhythm. No loud murmur ABDOMEN: Soft, no tenderness , guarding or rigidity, no organomegaly EXTREMITIES: No edema of feet. SKIN: No rash, no masses palpable. NEUROLOGICAL: The patient is awake, alert, oriented x3, mood and affect normal. Results CBC & Chem 7: 07/27/24 05:40 07/27/24 05:40 Labs: Abnormal Lab Results - Last 24 Hours (Table) 07/25/24 07/25/24 07/25/24 Range/Units 22:58 22:58 22:58 WBC 15.2 H (3.8-10.6) k/uL MCV 76.2 L (80.0-100.0) fL MCH 23.5 L (25.0-35.0) pg MCHC 30.8 L (31.0-37.0) g/dL RDW 18.1 H (11.5-15.5) % Neutrophils # 11.1 H (1.3-7.7) k/uL Sodium 135 L (137-145) mmol/L Carbon Dioxide 32 H (22-30) mmol/L BUN 21 H (7-17) mg/dL Creatinine 1.05 H (0.52-1.04) mg/dL C-Reactive Protein 3.6 H (<1.0) mg/dL Urine Appearance Cloudy H (Clear) Urine Nitrite Positive H (Negative) Ur Leukocyte Esterase Large H (Negative) Urine WBC 61 H (0-5) /hpf Urine WBC Clumps Few H (None) /hpf Ur Squamous Epith Cells 6 H (0-4) /hpf Urine Bacteria Rare H (None) /hpf Hyaline Casts 6 H (0-2) /lpf Urine Mucus Rare H (None) /hpf Urine Yeast (Budding) Occasional H (None) /hpf Assessment and Plan (1) ESBL (extended spectrum beta-lactamase) producing bacteria infection Current Visit: Yes Status: Acute Code(s): A49.9 - BACTERIAL INFECTION, UNSPECIFIED; Z16.12 - EXTENDED SPECTRUM BETA LACTAMASE (ESBL) RESISTANCE SNOMED Code(s): 611109726 (2) Allergy to multiple antibiotics Current Visit: No Status: Acute Code(s): Z88.1 - ALLERGY STATUS TO OTHER ANTIBIOTIC AGENTS SNOMED Code(s): 587382360 (3) UTI (urinary tract infection) Current Visit: No Status: Acute Code(s): N39.0 - URINARY TRACT INFECTION, SITE NOT SPECIFIED SNOMED Code(s): 25202531 (4) Failure of outpatient treatment Current Visit: Yes Status: Acute Code(s): Z78.9 - OTHER SPECIFIED HEALTH STATUS SNOMED Code(s): 467434902 Plan: 1patient was in the hospital with urinary burning frequency and has been diagnosed with a UTI by the PCP in the outpatient setting culture pending positive for ESBL failing outpatient oral Macrobid therapy. 2patient with multiple antibiotic ALLERGIES that would limit the number of antibiotic safe to use. 3discontinue Levaquin. 4we will start the patient on Invanz 1 g daily while waiting for the repeat culture to finalize. We will follow on clinical condition and cultures to further adjust medication if needed Thank you for this consultation we will follow the patient along with you Dictation was produced using [employer] dictation software. please excuse any grammatical, word or spelling errors. Time with Patient: Greater than 30
[2024-07-27] MEDS: HYDROCORTISONE 10 MG TAB PO SCH (10:16)
[2024-07-27] MEDS: MONTELUKAST 10 MG TAB PO SCH (10:17)
[2024-07-27] MEDS: MELOXICAM 7.5 MG TAB PO SCH (10:17)
[2024-07-27] MEDS: MEMANTINE 10 MG TAB PO SCH (10:18)
[2024-07-27] MEDS: NICOTINE 21MG/24HR PATCH TRANSDERM SCH (10:19)
--- NOTE | 2024-07-27 12:04 | P.PN ---
Subjective This is a pleasant 54 years old female with past medical history of multiple medical problems Who presents with UTI-like symptoms of burning urination, increased frequency of urination and incomplete emptying of her bladder. Her symptoms has been going on for about 2 weeks. She went to see her PCP Dr. Palomino who prescribed her oral antibiotic however she got a call yesterday that culture is growing ESBL bacteria and referred to the hospital. Patient states that she had ESBL infection before. Like the culture from 10/04/2023 She is complaining from mild suprapubic pain and tenderness Patient states that she has been having fever 103.4 at home Also complaining from left groin tenderness but she has been worked up by her PCP Dr. Palomino, as per patient she had a CAT scan will where they found tumor, she thinks it is in the adrenal gland and she was referred to oncologist Dr. Hurst as she explained who wanted to check MRI prior to seeing her and she is still in the process of finishing her workup Patient also admits to smoking cigarettes less than half pack per day and she was counseled to quit and she agrees and she agrees to the nicotine patch as well she denies alcohol or illicit drug She denies alcohol or illicit drugs Patient is afebrile in the hospital. She has mild leukocytosis of 15.2, rest of CBC is unremarkable. Sodium is 135, creatinine 1.05 Urine analysis is suspicious for infection with large leukocyte esterase and positive nitrite Renal ultrasound is negative for acute process and no hydronephrosis Patient received Levaquin in the emergency room 07/27/24 Patient still feels tired She still with suprapubic tenderness She feels she has some fungal infection in her oral cavity and private area requesting some antifungal. 20 times of fluconazole 150 mg is provided for her She remains on ertapenem/Invanz Urine culture still pending Renal ultrasound: No significant abnormalities. No hydronephrosis Review of systems CONSTITUTIONAL: No fever, no malaise, no fatigue. HEENT: No recent visual problems or hearing problems. Denied any sore throat. CARDIOVASCULAR: No orthopnea, PND, no palpitations, no syncope. PULMONARY: No shortness of breath, no cough, no hemoptysis. GASTROINTESTINAL: No diarrhea, no nausea, no vomiting, no abdominal pain. Normoactive bowel sounds. ENDOCRINE: Denies any polyuria or polydipsia. Active Medications Generic Name Dose Route Start Last Admin Trade Name Freq PRN Reason Stop Dose Admin Al Hydroxide/Mg Hydroxide 15 ml 07/26/24 02:46 Mag Hydrox/Al Hydrox/Simeth 30 Ml Cup PO Q6HR PRN Indigestion Albuterol Sulfate 2 puff 07/26/24 18:02 Albuterol Hfa Inhaler INHALATION RT-Q6H PRN Shortness Of Breath Albuterol Sulfate 2.5 mg 07/26/24 18:02 Albuterol Nebulized 2.5 Mg/3 Ml INHALATION RT-Q4H PRN Shortness Of Breath Amitriptyline HCl 100 mg 07/26/24 21:00 07/26/24 20:12 Amitriptyline Hcl 50 Mg Tab PO 100 mg HS ULYSSES Administration Apixaban 5 mg 07/26/24 21:00 07/27/24 10:15 Apixaban 5 Mg Tab PO 5 mg BID ULYSSES Administration Protocol Budesonide/Formoterol Fumarate 2 puff 07/26/24 20:00 07/27/24 09:43 Symbicort 80-4.5 Mcg Inhaler INHALATION 2 puff RT-BID ULYSSES Administration Cyclobenzaprine HCl 5 mg 07/26/24 21:00 07/27/24 10:17 Cyclobenzaprine 5 Mg Tab PO 5 mg BID ULYSSES Administration Duloxetine HCl 60 mg 07/26/24 21:00 07/27/24 10:19 Duloxetine Hcl 60 Mg Capsule.Dr PO 60 mg BID ULYSSES Administration Famotidine 20 mg 07/26/24 09:00 07/27/24 10:18 Famotidine 20 Mg Tab PO 20 mg DAILY ULYSSES Administration Hydrocortisone 10 mg 07/26/24 21:00 07/26/24 20:12 Hydrocortisone 10 Mg Tab PO 10 mg HS ULYSSES Administration Hydrocortisone 30 mg 07/27/24 09:00 07/27/24 10:16 Hydrocortisone 10 Mg Tab PO 30 mg DAILY ULYSSES Administration Sodium Chloride 1,000 mls @ 75 mls/hr 07/26/24 12:30 07/27/24 01:43 Saline 0.9% IV 07/27/24 12:29 75 mls/hr .[id number] ULYSSES Administration Ertapenem 1 gm/ Sodium 50 mls @ 100 mls/hr 07/26/24 15:15 07/27/24 10:27 Chloride IVPB 100 mls/hr DAILY ULYSSES Administration Protocol Ketorolac Tromethamine 15 mg 07/26/24 18:01 07/27/24 12:00 Ketorolac 15 Mg/Ml 1 Ml Vial IVP 07/31/24 18:01 15 mg Q6HR PRN Administration pain Levothyroxine Sodium 100 mcg 07/27/24 06:30 07/27/24 06:06 Levothyroxine 100 Mcg Tab PO 100 mcg 0630 ULYSSES Administration Meclizine HCl 25 mg 07/26/24 18:02 Meclizine 25 Mg Tab PO TID PRN Vertigo Meloxicam 7.5 mg 07/27/24 09:00 07/27/24 10:17 Meloxicam 7.5 Mg Tab PO 7.5 mg DAILY ULYSSES Administration Memantine 10 mg 07/27/24 09:00 07/27/24 10:18 Memantine 10 Mg Tab PO 10 mg DAILY ULYSSES Administration Montelukast Sodium 10 mg 07/27/24 09:00 07/27/24 10:17 Montelukast 10 Mg Tab PO 10 mg DAILY ULYSSES Administration Morphine Sulfate 15 mg 07/26/24 21:00 07/27/24 10:18 Morphine Sulfate Er 15 Mg Tablet PO 15 mg Q12HR ULYSSES Administration Protocol Naloxone HCl 0.2 mg 07/26/24 02:46 Naloxone 0.4 Mg/Ml 1 Ml Vial IV Q2M PRN Opioid Reversal Nicotine 1 patch 07/27/24 09:00 07/27/24 10:19 Nicotine 21mg/24hr Patch TRANSDERM 1 patch DAILY ULYSSES Administration Dextroamphetamine/ 15 mg 07/26/24 21:00 07/27/24 10:19 Amphetamine [ PO Not Given Adderall] 15 Mg BID ULYSSES Tablet Oxycodone/Acetaminophen 1 each 07/26/24 03:15 07/27/24 10:17 Oxycodone-Apap 7.5-325mg 1 Each Tab PO 1 each Q6H ULYSSES Administration Phenazopyridine HCl 100 mg 07/26/24 22:00 07/27/24 10:16 Phenazopyridine 100 Mg Tab PO 07/29/24 21:59 100 mg TID ULYSSES Administration Pregabalin 200 mg 07/26/24 22:00 07/27/24 10:16 Pregabalin 100 Mg Cap PO 200 mg TID ULYSSES Administration Ropinirole HCl 0.5 mg 07/26/24 18:02 Ropinirole Hcl 0.25 Mg Tab PO BID PRN RESTLESS LEGS Trazodone HCl 100 mg 07/26/24 21:00 07/26/24 20:12 Trazodone Hcl 100 Mg Tab PO 100 mg HS ULYSSES Administration Objective - Vital Signs Vital signs: Vital Signs Temp 97.9 F 07/27/24 07:00 Pulse 77 07/27/24 07:00 Resp 16 07/27/24 07:00 BP 116/78 07/27/24 07:00 Pulse Ox 96 07/27/24 07:00 FiO2 Intake & Output 07/26/24 07/27/24 07/27/24 18:59 06:59 18:59 Intake Total 118 Output Total 40 Balance -40 118 Weight 104.326 kg Intake: Oral 118 Output: Post Void Residual 40 Other: # Voids 2 - Exam GENERAL: The patient is alert and oriented x3, not in any acute distress. Well developed, well nourished. HEENT: Pupils are round and equally reacting to light. EOMI. No scleral icterus. No conjunctival pallor. Normocephalic, atraumatic. No pharyngeal erythema. No thyromegaly. CARDIOVASCULAR: S1 and S2 present. No murmurs, rubs, or gallops. PULMONARY: Chest is clear to auscultation, no wheezing , no crackles. ABDOMEN: Soft, nontender, nondistended, normoactive bowel sounds. No palpable organomegaly. MUSCULOSKELETAL: No joint swelling or deformity. EXTREMITIES: No cyanosis, clubbing, or pedal edema. NEUROLOGICAL: Gross neurological examination did not reveal any focal deficits. SKIN: No rashes. no petechiae. - Labs CBC & Chem 7: 07/27/24 05:40 07/27/24 05:40 Labs: Abnormal Lab Results - Last 24 Hours (Table) 07/27/24 07/27/24 Range/Units 05:40 05:40 MCV 78.9 L (80.0-97.0) FL MCH 23.6 L (27.0-32.0) pg MCHC 30.0 L (32.0-37.0) g/dL RDW 19.1 H (11.5-14.5) % Glucose 117 H (70-110) mg/dL Assessment and Plan Assessment: Acute urinary tract infection x 2-week. Culture from the office suspicious for ESBL bacteria History of ESBL UTI before Nicotine dependence History of left adrenal tumor as per patient, she is going to follow-up with Dr. Hurst Obesity with BMI of 36 Plan: Continue with antibiotic, currently on Invanz ID team will consult Continue with IV fluid Patient needs to follow-up with her oncologist as an outpatient regarding her tumor, she agrees Labs and medication were reviewed.. Continue same treatment. Continue with symptomatic treatment. Resume home medication. Monitor labs and vitals. DVT and GI prophylaxis. Further recommendations as per clinical course of the patient DVT prophylaxis: Subcutaneous heparin GI Prophylaxis: Pepcid Prognosis is guarded
--- NOTE | 2024-07-27 13:55 | P.PN ---
Subjective Progress Note Date: 07/27/24 Principal diagnosis: Reason for follow-up is ESBL E. coli urinary tract infection Patient is a 54-year-old female with a past medical history significant for COPD fibromyalgia hyperlipidemia memory impairment history of recurrent UTIs, Patient apparently recently did have a evaluation in the outpatient setting by her primary care physician patient did have a positive UA concerning for UTI she was treated with oral Macrobid with subsequent urine culture positive for ESBL E. coli resistant to Macrobid for the patient was advised to go to the hospital. On today's evaluation that is 07/27/2024, Patient is afebrile patient is currently on room air and denies having any shortness of breath, the patient denies any chest pain or cough, the patient denies any nausea vomiting still complaining of some burning and frequency of urination but no hematuria. Patient white count normalized to 7.31, creatinine 0.8 cultures are currently pending Objective - Vital Signs Vital signs: Vital Signs Temp 97.9 F 07/27/24 07:00 Pulse 77 07/27/24 07:00 Resp 16 07/27/24 07:00 BP 116/78 07/27/24 07:00 Pulse Ox 96 07/27/24 07:00 FiO2 Intake & Output 07/26/24 07/27/24 07/27/24 18:59 06:59 18:59 Intake Total 118 Output Total 40 Balance -40 118 Weight 104.326 kg Intake: Oral 118 Output: Post Void Residual 40 Other: Voiding Method Toilet # Voids 2 - Exam GENERAL DESCRIPTION: Middle-age female lying in bed in no distress RESPIRATORY SYSTEM: Unlabored breathing , decreased breath sounds at bases HEART: S1 S2 regular rate and rhythm , ABDOMEN: Soft , no tenderness EXTREMITIES: No edema feet - Labs CBC & Chem 7: 07/27/24 05:40 07/27/24 05:40 Labs: Abnormal Lab Results - Last 24 Hours (Table) 07/27/24 07/27/24 Range/Units 05:40 05:40 MCV 78.9 L (80.0-97.0) FL MCH 23.6 L (27.0-32.0) pg MCHC 30.0 L (32.0-37.0) g/dL RDW 19.1 H (11.5-14.5) % Glucose 117 H (70-110) mg/dL Assessment and Plan (1) ESBL (extended spectrum beta-lactamase) producing bacteria infection Current Visit: Yes Status: Acute Code(s): A49.9 - BACTERIAL INFECTION, UNSPECIFIED; Z16.12 - EXTENDED SPECTRUM BETA LACTAMASE (ESBL) RESISTANCE SNOMED Code(s): 531075717 (2) Allergy to multiple antibiotics Current Visit: No Status: Acute Code(s): Z88.1 - ALLERGY STATUS TO OTHER ANTIBIOTIC AGENTS SNOMED Code(s): 100626300 (3) UTI (urinary tract infection) Current Visit: No Status: Acute Code(s): N39.0 - URINARY TRACT INFECTION, SITE NOT SPECIFIED SNOMED Code(s): 41959020 (4) Failure of outpatient treatment Current Visit: Yes Status: Acute Code(s): Z78.9 - OTHER SPECIFIED HEALTH STATUS SNOMED Code(s): 955509339 Plan: 1patient was in the hospital with urinary burning frequency and has been diagnosed with a UTI by the PCP in the outpatient setting culture pending positive for ESBL failing outpatient oral Macrobid therapy. 2patient with multiple antibiotic ALLERGIES that would limit the number of antibiotic safe to use. 3patient will be treated with Invanz 1 g daily while waiting for the repeat culture to finalize determine discharge antibiotics. Dictation was produced using [employer] dictation software. please excuse any grammatical, word or spelling errors. Time with Patient: Less than 30
--- NOTE | 2024-07-28 17:51 | P.PN ---
Subjective Progress Note Date: 07/28/24 Maintained on Invanz for acute UTI, resistant to Macrobid outpatient. Asymptomatic, denies hematuria, dysuria or abdominal pain. Denies nausea or vomiting. Leukocytosis resolved, currently 7.3, renal function improving. Afebrile. Denies chest pain, palpitations or shortness of breath. Maintaining O2 sats in the 90s on room air Objective - Vital Signs Vital signs: Vital Signs Temp 97.5 F L 07/28/24 14:00 Pulse 70 07/28/24 14:00 Resp 17 07/28/24 14:00 BP 126/71 07/28/24 14:00 Pulse Ox 93 L 07/28/24 14:00 FiO2 Intake & Output 07/27/24 07/28/24 07/28/24 18:59 06:59 18:59 Intake Total 354 118 Balance 354 118 Intake: Oral 354 118 Other: Voiding Method Toilet Toilet Toilet # Voids 2 2 - Exam General: alert and oriented x 3, sitting up in bed, NAD. Vitals reviewed Eyes: PERRL, EOMI, conjunctiva normal Neck: supple, no JVD Lungs: normal respiratory effort, essentially clear, bilateral bases diminished. CV: Regular rate and rhythm, no murmur. Peripheral pulses 2+ Abdomen: soft, nondistended, no organomegaly. Skin: warm and dry. Neuro: Cranial nerves II through XII grossly intact Microbiology 07/26/24 14:15 Urine,Voided Urine Culture - Preliminary Gram Neg Bacilli - Labs CBC & Chem 7: 07/29/24 05:14 07/29/24 05:14 Labs: Microbiology - Last 24 Hours (Table) 07/26/24 14:15 Urine Culture - Preliminary Urine,Voided Gram Neg Bacilli Assessment and Plan Assessment: Acute UTI, failed outpatient treatment Macrobid, outpatient urine culture finalized with E. coli susceptible to ceftriaxone/resistant to Levaquin and Bactrim, in a patient with history of ESBL ,urine culture reporting gram- negative bacilli Leukocytosis secondary to the above Factor V Leiden, history of Chronic pain syndrome History of osteoarthritis History of multiple sclerosis Morbid obesity, BMI 36 Nicotine dependence Hemoglobin A1c 6.6 Continue on current medication regimen ,monitoring and symptomatic treatment. Urine culture finalizing-Maintain IV antibiotics of Invanz as per infectious disease. Close monitoring of renal function with repeat labs ordered for a.m. increase ambulation as tolerated. Discharge planning in progress for tomorrow pending finalization of cultures. The impression and plan of care has been dictated as directed. : I performed a history and examination of this patient, discussed the same with the dictator. I agree with the dictator's note ,documented as a scribe. Any additional findings or plans will be noted.
--- NOTE | 2024-07-29 08:00 | P.PN ---
Subjective Progress Note Date: 07/28/24 Principal diagnosis: Reason for follow-up is ESBL E. coli urinary tract infection Patient is a 54-year-old female with a past medical history significant for COPD fibromyalgia hyperlipidemia memory impairment history of recurrent UTIs, Patient apparently recently did have a evaluation in the outpatient setting by her primary care physician patient did have a positive UA concerning for UTI she was treated with oral Macrobid with subsequent urine culture positive for ESBL E. coli resistant to Macrobid for the patient was advised to go to the hospital. On today's evaluation that is 07/28/2024, patient has been afebrile, patient is breathing comfortably and is currently on room air, patient denies having any significant cough no chest pain, patient denies nausea vomiting or diarrhea still lower abdominal discomfort and urinary symptoms of burning no hematuria. No CBC was done today white count normal 7.31 as of yesterday urine is growing gram-negative Objective - Vital Signs Vital signs: Vital Signs Temp 98.0 F 07/28/24 07:00 Pulse 69 07/28/24 07:00 Resp 17 07/28/24 07:00 BP 120/77 07/28/24 07:00 Pulse Ox 92 L 07/28/24 07:00 FiO2 Intake & Output 07/27/24 07/28/24 07/28/24 18:59 06:59 18:59 Intake Total 354 118 Balance 354 118 Intake: Oral 354 118 Other: Voiding Method Toilet Toilet # Voids 2 2 - Exam GENERAL DESCRIPTION: Middle-age female lying in bed in no distress RESPIRATORY SYSTEM: Unlabored breathing , decreased breath sounds at bases HEART: S1 S2 regular rate and rhythm , ABDOMEN: Soft , no tenderness EXTREMITIES: No edema feet - Labs CBC & Chem 7: 07/27/24 05:40 07/27/24 05:40 Labs: Microbiology - Last 24 Hours (Table) 07/26/24 14:15 Urine Culture - Preliminary Urine,Voided Gram Neg Bacilli Assessment and Plan (1) ESBL (extended spectrum beta-lactamase) producing bacteria infection Current Visit: Yes Status: Acute Code(s): A49.9 - BACTERIAL INFECTION, UNSPECIFIED; Z16.12 - EXTENDED SPECTRUM BETA LACTAMASE (ESBL) RESISTANCE SNOMED Code(s): 478140348 (2) Allergy to multiple antibiotics Current Visit: No Status: Acute Code(s): Z88.1 - ALLERGY STATUS TO OTHER ANTIBIOTIC AGENTS SNOMED Code(s): 205423938 (3) UTI (urinary tract infection) Current Visit: No Status: Acute Code(s): N39.0 - URINARY TRACT INFECTION, SITE NOT SPECIFIED SNOMED Code(s): 28880472 (4) Failure of outpatient treatment Current Visit: Yes Status: Acute Code(s): Z78.9 - OTHER SPECIFIED HEALTH STATUS SNOMED Code(s): 656999500 Plan: 1patient was in the hospital with urinary burning frequency and has been diagnosed with a UTI by the PCP in the outpatient setting culture pending positive for ESBL failing outpatient oral Macrobid therapy. 2patient with multiple antibiotic ALLERGIES that would limit the number of antibiotic safe to use. 3patient urine is currently growing gram-negative with ID sensitivity pending's, will be treated with Invanz 1 g daily while waiting for the repeat culture to finalize Dictation was produced using [employer] software dictation software. please excuse any grammatical, word or spelling errors. Time with Patient: Less than 30
[2024-07-29 08:20] LABS: Basophils # (A) 0.03 X 10*3/uL (0.00-0.10); Basophils % (A) 0.3 %; Eosinophils # (A) 0.15 X 10*3/uL (0.04-0.35); Eosinophils % (A) 1.5 %; HCT 38.5 % (37.2-46.3); HGB 11.7 g/dL (12.0-15.0); Lymphocytes # (A) 2.15 X 10*3/uL (0.90-5.00); Lymphocytes % (A) 20.8 %; MCHC 30.4 g/dL (32.0-37.0); MCV 79.1 FL (80.0-97.0); Mean Platelet Volume 10.3 FL (9.5-12.2); Monocytes # (A) 0.66 X 10*3/uL (0.20-1.00); Monocytes % (A) 6.4 %; NRBC Per 100 WBC 0 X 10*3/uL (0.00-0.01); Neutrophils # (A) 7.31 X 10*3/uL (1.80-7.70); Neutrophils % (A) 70.6 %; Platelet Count 263 X 10*3/uL (140-440); RBC 4.87 X 10*6/uL (4.10-5.20); RDW 19.3 % (11.5-14.5); WBC 10.34 X 10*3/uL (4.50-10.00)
[2024-07-29 08:24] VITALS: BP 136/75; PULSE 67; RESP 18; TEMP 97.9
[2024-07-29 09:03] LABS: BUN/Creat Ratio 17.14 Ratio (12.00-20.00); Calcium 9.1 mg/dL (8.7-10.3); Carbon Dioxide 29.2 mmol/L (21.6-31.8); Chloride 102 mmol/L (96-109); Glucose 108 mg/dL (70-110); Potassium 4.1 mmol/L (3.5-5.5); Sodium 141 mmol/L (135-145)
[2024-07-29] MEDS ORDERED: ONDANSETRON 4 MG/2 ML VIAL IVP PRN (09:54)
--- NOTE | 2024-07-29 15:39 | P.PN ---
Subjective Progress Note Date: 07/29/24 Principal diagnosis: Reason for follow-up is ESBL E. coli urinary tract infection Patient is a 54-year-old female with a past medical history significant for COPD fibromyalgia hyperlipidemia memory impairment history of recurrent UTIs, Patient apparently recently did have a evaluation in the outpatient setting by her primary care physician patient did have a positive UA concerning for UTI she was treated with oral Macrobid with subsequent urine culture positive for ESBL E. coli resistant to Macrobid for the patient was advised to go to the hospital. On today's evaluation that is 07/29/2024, Patient is afebrile this morning patient denies having any chest pain shortness of breath or cough, the patient is currently on room air, patient denies any abdominal pain no diarrhea no nausea no vomiting did have improvement in her urinary symptoms. Patient her white count is 10.34 creatinine 0.7 urine with E. coli sensitive to ceftriaxone not ESBL pathogen Objective - Vital Signs Vital signs: Vital Signs Temp 97.9 F 07/29/24 08:00 Pulse 67 07/29/24 08:00 Resp 18 07/29/24 08:00 BP 136/75 07/29/24 08:00 Pulse Ox 93 L 07/29/24 08:00 FiO2 Intake & Output 07/28/24 07/29/24 07/29/24 18:59 06:59 18:59 Intake Total 236 180 Balance 236 180 Intake: Oral 236 180 Other: Voiding Method Toilet Toilet # Voids 3 - Exam GENERAL DESCRIPTION: Middle-age female lying in bed in no distress RESPIRATORY SYSTEM: Unlabored breathing , decreased breath sounds at bases HEART: S1 S2 regular rate and rhythm , ABDOMEN: Soft , no tenderness EXTREMITIES: No edema feet - Labs CBC & Chem 7: 07/29/24 05:14 07/29/24 05:14 Labs: Abnormal Lab Results - Last 24 Hours (Table) 07/29/24 Range/Units 05:14 WBC 10.34 H (4.50-10.00) X 10*3/uL Hgb 11.7 L (12.0-15.0) g/dL MCV 79.1 L (80.0-97.0) FL MCH 24.0 L (27.0-32.0) pg MCHC 30.4 L (32.0-37.0) g/dL RDW 19.3 H (11.5-14.5) % Microbiology - Last 24 Hours (Table) 07/26/24 14:15 Urine Culture - Final Urine,Voided Escherichia coli Assessment and Plan (1) ESBL (extended spectrum beta-lactamase) producing bacteria infection Status: Acute Code(s): A49.9 - BACTERIAL INFECTION, UNSPECIFIED; Z16.12 - EXTENDED SPECTRUM BETA LACTAMASE (ESBL) RESISTANCE SNOMED Code(s): 538813245 (2) Allergy to multiple antibiotics Status: Acute Code(s): Z88.1 - ALLERGY STATUS TO OTHER ANTIBIOTIC AGENTS SNOMED Code(s): 709872867 (3) UTI (urinary tract infection) Status: Acute Code(s): N39.0 - URINARY TRACT INFECTION, SITE NOT SPECIFIED SNOMED Code(s): 15576763 (4) Failure of outpatient treatment Status: Acute Code(s): Z78.9 - OTHER SPECIFIED HEALTH STATUS SNOMED Code(s): 688906611 Plan: 1patient was in the hospital with urinary burning frequency and has been diagnosed with a UTI by the PCP in the outpatient setting culture pending positive for ESBL failing outpatient oral Macrobid therapy. 2patient with multiple antibiotic ALLERGIES that would limit the number of antibiotic safe to use. 3patient urine culture have been finalized with an E. coli that is sensitive to ceftriaxone not ESBL she will be given a dose of Rocephin 2 g x 1 afterwards she will finish therapy with oral Ceftin 500 mg twice daily for 10 days on discharge discussed with [facility] for admitting team working on discharge Dictation was produced using [employer] dictation software. please excuse any grammatical, word or spelling errors. Time with Patient: Less than 30
--- NOTE | 2024-07-30 14:41 | P.DS ---
Providers Date of admission: 07/26/24 02:48 Expected date of discharge: 07/29/24 Attending physician: Richy Palomino MD Consults: 07/26/24 08:40 Consult Physician Routine Consulting Provider: Devante Reich Consult Reason/Comments: uti Do you want consulting provider notified?: Yes Primary care physician: Richy Palomino MD Hospital Course: Acute UTI, failed outpatient treatment with Macrobid, outpatient urine culture finalized with E. coli susceptible to ceftriaxone/resistant to Levaquin and Bactrim, in a patient with history of ESBL ,urine culture reporting E. coli, sensitive so ceftriaxone, resistant to quinolones, ampicillin, Bactrim. Leukocytosis secondary to the above Factor V Leiden, history of Chronic pain syndrome History of osteoarthritis History of multiple sclerosis Morbid obesity, BMI 36 Nicotine dependence Hemoglobin A1c 6.6 Hospital course:Maintained on Invanz for acute UTI, resistant to Macrobid outpatient. Asymptomatic, denies hematuria, dysuria or abdominal pain. Denies nausea or vomiting. Leukocytosis resolved, currently 7.3, renal function improving. Afebrile. Denies chest pain, palpitations or shortness of breath. Maintaining O2 sats in the 90s on room air Urine culture finalizing-Maintain IV antibiotics of Invanz as per infectious disease. Close monitoring of renal function with repeat labs ordered for a.m. increase ambulation as tolerated. Discharge planning in progress for tomorrow pending finalization of cultures. Urine culture finalized, E. coli sensitive to ceftriaxone. Significant clinical improvement. Afebrile, WBC 10.34. Renal function stable patient reports asymptomatic, no signs or symptoms of dysuria or hematuria abdominal pain. Denies lightheadedness dizziness or focal deficits. Cleared for discharge by infectious disease, recommending Ceftin x 10 days. She will be discharged home today in a stable condition with guarded prognosis. Microbiology 07/26/24 14:15 Urine,Voided Urine Culture - Final Escherichia coli The impression and plan of care has been dictated as directed. : I performed a history and examination of this patient, discussed the same with the dictator. I agree with the dictator's note ,documented as a scribe. Any additional findings or plans will be noted. Patient Condition at Discharge: Stable Plan - Discharge Summary Discharge Rx Participant: No New Discharge Prescriptions: New cefuroxime axetiL [Ceftin] 500 mg PO BID 10 Days #20 tab Continue DULoxetine HCL [Cymbalta] 60 mg PO BID traZODone HCL 100 mg PO HS Apixaban [Eliquis] 5 mg PO BID Morphine Sulfate ER [Ms Contin] 15 mg PO Q12H Hydrocortisone [Cortef] 30 mg PO DAILY Hydrocortisone [Cortef] 10 mg PO HS Amitriptyline HCl [Elavil] 100 mg PO HS Albuterol Sulfate [Proair Hfa] 2 puff INHALATION RT-Q6H PRN PRN Reason: Shortness Of Breath Levothyroxine Sodium [Synthroid] 100 mcg PO DAILY oxyCODONE-APAP 10-325MG [Percocet 10-325 mg] 1 tab PO Q6H PRN PRN Reason: Pain Pregabalin [Lyrica] 200 mg PO TID Celecoxib [CeleBREX] 200 mg PO DAILY Montelukast [Singulair] 10 mg PO DAILY Ocrelizumab [Ocrevus] 600 mg IV Q180D Nicotine 21Mg/24Hr Patch [Habitrol] 1 patch TRANSDERM DAILY patch Magnesium Oxide [Mag-Ox] 400 mg PO BID tab Albuterol Nebulized [Ventolin Nebulized] 2.5 mg INHALATION RT-Q4H PRN PRN Reason: Shortness Of Breath Omeprazole 20 mg PO DAILY Ergocalciferol [Vitamin D2 (1250 Mcg = 08667 Iu)] 1,250 mcg PO FR ondansetron HCL [Zofran] 8 mg PO Q8HR PRN PRN Reason: Nausea Cyclobenzaprine [Flexeril] 5 mg PO BID Fluticasone Propion/Salmeterol [Advair 250-50 Diskus] 1 puff INHALATION RT- BID Semaglutide [Ozempic] 2 mg SQ FR Dextroamphetamine/Amphetamine [Adderall] 15 mg PO BID Solu-Medrol 125mg/2ml Solution 1 dose IM Q180D fentaNYL 12MCG/HR PATCH [Duragesic 12MCG/HR] 1 patch TRANSDERM Q72H Lidocaine-Prilocaine Cream [Emla Cream 2.5%/2.5%] 1 applic TOPICAL DAILY PRN PRN Reason: Pain Memantine [Namenda] 10 mg PO DAILY rOPINIRole HCL [Requip] 0.5 mg PO BID PRN PRN Reason: RESTLESS LEGS Meclizine [Antivert] 25 mg PO TID PRN PRN Reason: Vertigo Discharge Medication List DULoxetine HCL [Cymbalta] 60 mg PO BID 04/01/19 [History] traZODone HCL 100 mg PO HS 12/03/19 [History] Apixaban [Eliquis] 5 mg PO BID 12/17/19 [History] Hydrocortisone [Cortef] 30 mg PO DAILY 10/07/20 [History] Morphine Sulfate ER [Ms Contin] 15 mg PO Q12H 10/07/20 [History] Hydrocortisone [Cortef] 10 mg PO HS 04/26/21 [History] Albuterol Sulfate [Proair Hfa] 2 puff INHALATION RT-Q6H PRN 05/05/22 [History] Amitriptyline HCl [Elavil] 100 mg PO HS 05/05/22 [History] Ergocalciferol [Vitamin D2 (1250 Mcg = 31517 Iu)] 1,250 mcg PO FR 05/05/22 [History] Omeprazole 20 mg PO DAILY 05/05/22 [History] Levothyroxine Sodium [Synthroid] 100 mcg PO DAILY 05/31/23 [History] Pregabalin [Lyrica] 200 mg PO TID 05/31/23 [History] oxyCODONE-APAP 10-325MG [Percocet 10-325 mg] 1 tab PO Q6H PRN 05/31/23 [History] ondansetron HCL [Zofran] 8 mg PO Q8HR PRN 07/03/23 [History] Celecoxib [CeleBREX] 200 mg PO DAILY 04/23/24 [History] Cyclobenzaprine [Flexeril] 5 mg PO BID 04/23/24 [History] Dextroamphetamine/Amphetamine [Adderall] 15 mg PO BID 04/23/24 [History] Fluticasone Propion/Salmeterol [Advair 250-50 Diskus] 1 puff INHALATION RT-BID 04/23/24 [History] Montelukast [Singulair] 10 mg PO DAILY 04/23/24 [History] Ocrelizumab [Ocrevus] 600 mg IV Q180D 04/23/24 [History] Semaglutide [Ozempic] 2 mg SQ FR 04/23/24 [History] Magnesium Oxide [Mag-Ox] 400 mg PO BID tab 05/05/24 [Rx] Nicotine 21Mg/24Hr Patch [Habitrol] 1 patch TRANSDERM DAILY patch 05/05/24 [Rx] Albuterol Nebulized [Ventolin Nebulized] 2.5 mg INHALATION RT-Q4H PRN 07/26/24 [History] Lidocaine-Prilocaine Cream [Emla Cream 2.5%/2.5%] 1 applic TOPICAL DAILY PRN 07/26/24 [History] Meclizine [Antivert] 25 mg PO TID PRN 07/26/24 [History] Memantine [Namenda] 10 mg PO DAILY 07/26/24 [History] Solu-Medrol 125mg/2ml Solution 1 dose IM Q180D 07/26/24 [History] fentaNYL 12MCG/HR PATCH [Duragesic 12MCG/HR] 1 patch TRANSDERM Q72H 07/26/24 [History] rOPINIRole HCL [Requip] 0.5 mg PO BID PRN 07/26/24 [History] cefuroxime axetiL [Ceftin] 500 mg PO BID 10 Days #20 tab 07/29/24 [Rx] Follow up Appointment(s)/Referral(s): Richy Palomino MD [Primary Care Provider] - 3 Days (please call the office for an appointment) Patient Instructions/Handouts: Urinary Tract Infection in Women (DC), Extended Spectrum Beta Lactamase (GEN) Discharge Disposition: HOME SELF-CARE
== END 2024-07-29 14:23 | disposition home or self-care (01) | DRG 690 ==
LOC: EC 20:28 → 6NMEDSUR 07-26 02:47 → OBSVTOIN 07-26 02:48 → 6NMEDSUR 07-26 16:55
PROVIDERS: ADMIT Family Medicine; ATTEND Family Medicine
DX: N39.0 Urinary tract infection, site not specified (principal); D68.51 Activated protein C resistance; E66.01 Morbid (severe) obesity due to excess calories; G35 Multiple sclerosis; I50.9 Heart failure, unspecified; Z16.12 Extended spectrum beta lactamase (ESBL) resistance; Z16.23 Resistance to quinolones and fluoroquinolones; B96.20 Unspecified Escherichia coli [E. coli] as the cause of diseases classified elsewhere; Z68.36 Body mass index [BMI] 36.0-36.9, adult; J44.89 Other specified chronic obstructive pulmonary disease; D49.7 Neoplasm of unspecified behavior of endocrine glands and other parts of nervous system; G89.4 Chronic pain syndrome; E78.5 Hyperlipidemia, unspecified; H91.90 Unspecified hearing loss, unspecified ear; G47.33 Obstructive sleep apnea (adult) (pediatric); F17.290 Nicotine dependence, other tobacco product, uncomplicated; F17.210 Nicotine dependence, cigarettes, uncomplicated; Z87.440 Personal history of urinary (tract) infections; M79.7 Fibromyalgia; M19.90 Unspecified osteoarthritis, unspecified site; Z79.01 Long term (current) use of anticoagulants; Z79.891 Long term (current) use of opiate analgesic; Z79.890 Hormone replacement therapy; Z79.1 Long term (current) use of non-steroidal anti-inflammatories (NSAID); Z79.85 Long-term (current) use of injectable non-insulin antidiabetic drugs; Z88.1 Allergy status to other antibiotic agents; Z79.899 Other long term (current) drug therapy; Z86.718 Personal history of other venous thrombosis and embolism; Z86.19 Personal history of other infectious and parasitic diseases
CPT/HCPCS: 36415; 51798; 76770; 80048; 80053; 81001; 81025; 85025; 86140; 87077; 87086; 87186; 94640; 96361; 96365; 96372; 96375; 99285

== ENCOUNTER → 2024-09-03 | Outpatient (CLI) | payer MEDICARE, OTHER ==
--- NOTE | 2024-09-03 14:12 | CT ---
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 CT DLP: [address] CTDI: mGy Automated exposure control for dose reduction was used. FINDINGS: There are 2 stable 7 mm nodules on each in the lower lobes. There are a few scattered small focal kodi undglass densities in the lower lobes. There is no airspace consolidation. There is no pleural effusion or pneumothorax. Great vessels the chest are normal. There is no mediastinal, hilar or axillary adenopathy. Limited scanning through the upper abdomen reveals marked interval growth in the left adrenal mass wh ich previously measured 2.5 cm and now measures 6 cm x 5 cm. It is heterogeneous in density and is hi ghly suspicious for neoplasm. There are surgical clips in the gallbladder. There are no focal osseous abnormalities. IMPRESSION: 1. Single stable 7 mm nodules in the lower lobes. 2. New small focal groundglass opacities in the left lower lobe which could be infectious or neoplast ic in nature and follow-up is recommended. 3. Marked interval enlargement in heterogeneity in the left adrenal mass as described above. The find ings are high suspicious for left adrenal neoplasm and further workup is warranted. Follow-up recommendations for incidental pulmonary nodules are per [employer] [place] [employer] or [employer] [place] [employer]. [facility], , 09/03/2024 2:10 PM
== END | disposition home or self-care (01) ==
LOC: RADCTMAIN 13:12
PROVIDERS: ATTEND Internal Medicine Hematology & Oncology
DX: D44.10 Neoplasm of uncertain behavior of unspecified adrenal gland (principal); E27.9 Disorder of adrenal gland, unspecified; R91.8 Other nonspecific abnormal finding of lung field
CPT/HCPCS: 71250

== ENCOUNTER → 2025-03-23 | Outpatient (CLI) | payer MEDICARE, OTHER ==
--- NOTE | 2025-03-24 08:36 | MR ---
EXAMINATION TYPE: MR brain/cspine wo/w DATE OF EXAM: 03/23/2025 8:18 PM COMPARISON: MRI brain C-spine 09/11/2023, 09/17/2018, CT brain C-spine 10/07/2020 CLINICAL INDICATION: Female, 55 years old with history of G35 Multiple sclerosis, MS, Dizziness, Weak ness/Numbness bilateral, Forgetful, Headaches, Pain both sides IV Contrast: 10 cc Gadobutrol (None if empty) TECHNIQUE: Multiplanar, multisequence images of the brain and brainstem is performed without and with IV contras t, utilizing 10 mL intravenous Gadobutrol . FINDINGS: The moffett-white junctions, ventricular system, basal cisterns appear unremarkable. Age-appropriate cer ebral volume. Diffusion-weighted imaging shows no evidence of restricted diffusion to suggest acute/s ubacute infarct. Intracranial arterial flow voids are maintained. Midline structures show no abnormal ity. Similar T2/FLAIR hyperintense plaques within the periventricular subcortical supratentorial whit e matter. Garcia finger projections identified. The susceptibility weighted images do not reveal any evidence for micro-hemorrhage. After administration of gadolinium, no abnormal enhancement is seen. The bone marrow signal is within normal limits. The paranasal sinuses and globes are unremarkable. IMPRESSION: 1. No evidence of intracranial mass, acute/subacute infarct, or abnormal enhancement. 2. Similar white matter plaques related to known multiple sclerosis from prior MRI. No significant ne w or enhancing lesions demonstrated to suggest active demyelination. TECHNIQUE: Multi planar, multi sequence imaging was performed of the cervical spine. The patient was given 10 mL of intravenous Gadobutrol . FINDINGS: Alignment: The cervical vertebral bodies have preserved heights. Grade 1 retrolisthesis of C5 and C6 and C6 on C7. Bones: Multilevel anterior aspect stenosis from C4 through C7. Cord: The spinal cord is unremarkable with regards to their signal intensity and morphology. No suspi cious lesion. No enhancement. Discs: Multilevel disc desiccation is present. C2-C3: No significant disc pathology. The spinal canal is patent. No neural foraminal stenosis. C3-C4: Prominent left-sided uncovertebral joint hypertrophy. No significant spinal canal stenosis. Re sults in moderate to severe left neural foraminal stenosis. The right neural foramen is patent. C4-C5: No significant disc pathology. The spinal canal is patent. Uncovertebral joint hypertrophy an d left facet arthropathy. Mild left neural foraminal stenosis. The right neural foramen is patent. C5-C6: Broad-based disc bulge with uncovertebral joint hypertrophy. Mild effacement of anterior theca l sac. Mild spinal canal stenosis. Moderate bilateral neural foraminal stenosis. C6-C7: Broad-based disc bulge with mild effacement of the anterior thecal sac. Mild spinal canal sten osis. Uncovertebral joint hypertrophy. Moderate to severe bilateral neural foraminal stenosis. C7-T1: No significant disc pathology. The spinal canal is patent. No neural foraminal stenosis. Other: Retropharyngeal course of the bilateral internal carotid arteries. IMPRESSION: No MRI evidence for demyelinating disease involvement in the cervical spinal cord. No suspicious enha ncement or enhancing lesions. Multilevel degenerative change is redemonstrated as detailed above. [facility], , 03/24/2025 8:34 AM
== END | disposition home or self-care (01) ==
LOC: RADMRIMAIN 18:38
PROVIDERS: ATTEND Physician Assistant
DX: G35 Multiple sclerosis (principal); R90.82 White matter disease, unspecified
CPT/HCPCS: 70553; 72156; A9585